=== PATIENT | male | born 1955 | race Caucasian/White ===

== ENCOUNTER 2016-07-26 16:06 | Outpatient (CLI) | payer MEDICAID | END 2016-07-26 16:07 | disposition home or self-care (01) | DX: M54.2 Cervicalgia (principal); Z04.1 Encounter for examination and observation following transport accident; V49.49XA Driver injured in collision with other motor vehicles in traffic accident, initial encounter; Y92.413 State road as the place of occurrence of the external cause ==

== ENCOUNTER 2016-08-01 16:30 | Outpatient (CLI) | payer MEDICAID | END 2016-08-01 16:31 | disposition home or self-care (01) | DX: R00.0 Tachycardia, unspecified (principal) ==

== ENCOUNTER 2017-03-09 20:07 | Outpatient (CLI) | payer SELFPAY | END 2017-03-09 20:08 | disposition short-term general hospital (02) | LOC: EMS 20:07 | PROVIDERS: ATTEND Surgery | DX: R47.81 Slurred speech (principal); R20.0 Anesthesia of skin; R53.1 Weakness; R51 Headache | CPT/HCPCS: A0170; A0425; A0427 ==

== ENCOUNTER 2018-07-05 16:40 | Outpatient (CLI) | payer MEDICARE | END 2018-07-05 16:41 | disposition short-term general hospital (02) | LOC: EMS 16:40 | PROVIDERS: ATTEND Surgery | DX: R47.81 Slurred speech (principal); R42 Dizziness and giddiness; R20.0 Anesthesia of skin; R32 Unspecified urinary incontinence | CPT/HCPCS: A0425; A0427 ==

== ENCOUNTER 2018-08-22 23:10 | Outpatient (CLI) | payer MEDICARE | END 2018-08-22 23:11 | disposition critical access hospital (66) | LOC: EMS 23:10 | PROVIDERS: ATTEND Surgery | DX: R33.9 Retention of urine, unspecified (principal); R10.9 Unspecified abdominal pain; R53.1 Weakness; R63.1 Polydipsia | CPT/HCPCS: A0425; A0427 ==

== ENCOUNTER 2018-08-22 23:39 | Inpatient (IN) | payer MEDICARE ==
[2018-08-22] MEDS ORDERED: SODIUM CHLORIDE 0.9% 1,000 ML IV STA (23:51)
--- NOTE | 2018-08-23 00:03 | ED Physician Documentation ---
PD HPI ABD PAIN - Stated complaint Stated Complaint: ABD PAIN - Chief complaint Chief Complaint: Abd Pain - History obtained from History obtained from: Patient - History of Present Illness Timing - onset: Today, Other (patient says abdominal pain started earlier today, but medics were told it has been going on for at least one week) Timing - details: Gradual onset, Still present Pain level now: 4 Quality: Pain Location: RLQ Improved by: Other (no ameliorating factors) Worsened by: Palpation Associated symptoms: Nausea (mild). No: Fever, Vomiting, Diarrhea, Constipation Similar symptoms before: Has not had sx before Recently seen: Clinic (saw PMD approximately 1 week ago, "routine" visit (per patient)) - Additional information Additional information: BIBA. Patient says his "nosy neighbor" called 911 out of concern for high blood sugar. Medics measured fingertick at 452 in field. Patient says he does check his blood sugars and that it was in the 200s this morning, 300s this afternoon. He also has abdominal pain which he says started this morning. Review of Systems Constitutional: reports: Reviewed and negative Eyes: reports: Reviewed and negative Ears: reports: Reviewed and negative Nose: reports: Reviewed and negative Throat: reports: Reviewed and negative Cardiac: reports: Reviewed and negative Respiratory: reports: Reviewed and negative GI: reports: Abdominal Pain, Nausea. denies: Vomiting, Constipation, Diarrhea : denies: Dysuria, Frequency, Unable to Void Skin: reports: Reviewed and negative Musculoskeletal: reports: Reviewed and negative Neurologic: reports: Reviewed and negative PD PAST MEDICAL HISTORY - Past Medical History Past Medical History: Yes Cardiovascular: Hypertension, Other Endocrine/Autoimmune: Type 2 diabetes - Past Surgical History Past Surgical History: Yes - Present Medications Home Medications: Ambulatory Orders Medication Instructions Recorded Confirmed Aspirin [Aspir 81] 81 mg PO DAILY 11/17/12 08/22/18 Lisinopril 30 mg PO BID 11/17/12 08/22/18 Amlodipine Besylate 10 mg PO DAILY 06/06/14 08/22/18 Insulin Glargine,Hum.rec.anlog 37 unit SQ QPM 06/06/14 08/22/18 [Lantus] Pravastatin Sodium 40 mg PO QPM 06/06/14 08/22/18 Insulin Aspart (Vial) [NovoLOG 11 unit SQ TIDWM 08/18/16 08/22/18 (VIAL FOR ED USE)] - Allergies Allergies/Adverse Reactions: Allergies Allergy/AdvReac Type Severity Reaction Status Date / Time No Known Drug Allergies Allergy Verified 10/21/14 23:02 - Social History Does the pt smoke?: No Smoking Status: Never smoker Does the pt drink ETOH?: No Does the pt have substance abuse?: Yes - Immunizations Immunizations are current?: Yes - POLST Patient has POLST: No PD ED PE NORMAL - Vitals Vital signs reviewed: Yes - General General: Alert and oriented X 3, Well developed/nourished, Other (mostly NAD but at times he moans and says he is having "indigestion" (when asked to be more specific, he describes abdominal pain)) - HEENT HEENT: PERRL, EOMI, Moist mucous membranes - Neck Neck: Supple, no meningeal sign - Cardiac Cardiac: RRR, No murmur - Respiratory Respiratory: No respiratory distress, Clear bilaterally - Abdomen Abdomen: Normal bowel sounds, Soft, Other (RLQ tenderness to palpation without rebound or guarding; suprapubic fullness) - Back Back: No CVA TTP - Derm Derm: Normal color, Warm and dry - Extremities Extremities: No edema - Neuro Eye Opening: Spontaneous Motor: Obeys Commands Verbal: Oriented GCS Score: 15 PD ED PE EXPANDED - Rectal Rectal: Heme Occult Neg - QC+, Normal Tone Results - Vitals Vitals: Vital Signs - 24 hr 08/22/18 08/22/18 08/23/18 23:40 23:49 00:10 Temperature 36 C L Heart Rate 95 104 H 88 Respiratory 16 16 20 Rate Blood Pressure 152/93 H 152/93 H 161/102 H O2 Saturation 96 94 97 08/23/18 02:04 Temperature 36.7 C Heart Rate 82 Respiratory 16 Rate Blood Pressure 157/82 H O2 Saturation 97 Oxygen O2 Source Room air - Labs Labs: Laboratory Tests 08/22/18 08/22/18 08/23/18 23:55 23:55 00:00 WBC 14.9 H RBC 3.56 L Hgb 10.8 L Hct 32.0 L MCV 89.8 MCH 30.2 MCHC 33.7 RDW 13.8 Plt Count 252 MPV 8.7 Neut # (Auto) 13.2 H Lymph # (Auto) 0.3 L [place] # (Auto) 1.3 H Eos # (Auto) 0.0 Baso # (Auto) 0.1 Absolute Nucleated RBC 0.00 Nucleated RBC % 0.0 Sodium 131 L Potassium 4.3 Chloride 97 L Carbon Dioxide 21 Anion Gap 13.0 BUN 94 H* Creatinine 2.7 H Estimated GFR (MDRD) 24 L Glucose 444 H Calcium 9.2 Total Bilirubin 0.7 AST 47 H ALT 31 Alkaline Phosphatase 70 Total Protein 6.9 Albumin 2.8 L Globulin 4.1 Albumin/Globulin Ratio 0.7 L Lipase 19 L Urine Color Urine Clarity Urine pH Ur Specific [place] Urine Protein Urine Glucose (UA) Urine Ketones Urine Occult Blood Urine Nitrite Urine Bilirubin Urine Urobilinogen Ur Leukocyte Esterase Urine RBC Urine WBC Ur Squamous Epith Cells Urine Bacteria Ur Microscopic Review Urine Culture Comments Urine Opiates Screen NEGATIVE Ur Oxycodone Screen NEGATIVE Urine Methadone Screen NEGATIVE Ur Propoxyphene Screen NEGATIVE Ur Barbiturates Screen NEGATIVE Ur Tricyclics Screen NEGATIVE Ur Phencyclidine Scrn NEGATIVE Ur Amphetamine Screen POSITIVE H U Methamphetamines Scrn POSITIVE H U Benzodiazepines Scrn NEGATIVE Urine Cocaine Screen NEGATIVE U Cannabinoids Screen NEGATIVE Serum Ketones NEGATIVE 08/23/18 00:08 WBC RBC Hgb Hct MCV MCH MCHC RDW Plt Count MPV Neut # (Auto) Lymph # (Auto) [place] # (Auto) Eos # (Auto) Baso # (Auto) Absolute Nucleated RBC Nucleated RBC % Sodium Potassium Chloride Carbon Dioxide Anion Gap BUN Creatinine Estimated GFR (MDRD) Glucose Calcium Total Bilirubin AST ALT Alkaline Phosphatase Total Protein Albumin Globulin Albumin/Globulin Ratio Lipase Urine Color YELLOW Urine Clarity HAZY Urine pH 6.0 Ur Specific [place] 1.010 Urine Protein 30 H Urine Glucose (UA) NEGATIVE Urine Ketones NEGATIVE Urine Occult Blood SMALL H Urine Nitrite POSITIVE H Urine Bilirubin NEGATIVE Urine Urobilinogen 0.2 (NORMAL) Ur Leukocyte Esterase LARGE H Urine RBC 0-5 Urine WBC >25 H Ur Squamous Epith Cells FEW Squamous Urine Bacteria Moderate H Ur Microscopic Review INDICATED Urine Culture Comments INDICATED Urine Opiates Screen Ur Oxycodone Screen Urine Methadone Screen Ur Propoxyphene Screen Ur Barbiturates Screen Ur Tricyclics Screen Ur Phencyclidine Scrn Ur Amphetamine Screen U Methamphetamines Scrn U Benzodiazepines Scrn Urine Cocaine Screen U Cannabinoids Screen Serum Ketones - Rads (name of study) CT A/P Radiology: Prelim report reviewed, See rad report PD MEDICAL DECISION MAKING - ED course Complexity details: reviewed old records (I note home health visit records in computer that indicate patient was inpatient at [facility] in June. The records from that inpatient stay were faxed from [facility] and I reviewed them), reviewed results, re-evaluated patient, considered differential, d/w patient ED course: RN placed lara catheter with over 1500 cc return and significant improvement in symptoms. Departure - Departure Disposition: 66 [facility] DC/Xfer Clinical Impression: Acute urinary retention Urinary tract infection Qualifiers: Urinary tract infection type: acute cystitis Hematuria presence: without hematuria Qualified Code(s): N30.00 - Acute cystitis without hematuria Condition: Stable Discharge Date/Time: 08/23/18 04:00
[2018-08-23 00:08] LABS: BASOPHILS # (AUTO) 0.1 10^3/uL (0.0-0.1); BASOPHILS % (AUTO) 0.4 %; HGB - HEMOGLOBIN 10.8 g/dL (14.0-18.0); LYMPHOCYTES # (AUTO) 0.3 10^3/uL (1.5-3.5); MEAN CORPUSCULAR HEMOGLOBIN 30.2 pg (27.0-31.0); MEAN CORPUSCULAR HGB CONC 33.7 g/dL (32.0-36.0); MEAN CORPUSCULAR VOLUME 89.8 fL (80.0-94.0); MEAN PLATELET VOLUME 8.7 fL (7.4-11.4); MONOCYTES # (AUTO) 1.3 10^3/uL (0.0-1.0); MONOCYTES % (AUTO) 8.5 %; NEUTROPHILS # (AUTO) 13.2 10^3/uL (1.5-6.6); NEUTROPHILS % (AUTO) 89.1 %; PLT - PLATELET COUNT 252 10^3/uL (130-450); RED BLOOD COUNT 3.56 10^6/uL (4.70-6.10); RED CELL DISTRIBUTION WIDTH 13.8 % (12.0-15.0); WHITE BLOOD COUNT 14.9 x10^3/uL (4.8-10.8)
[2018-08-23] MEDS ORDERED: ONDANSETRON 4 MG/2 ML VIAL IVP STA ×2 (00:09→01:56)
[2018-08-23] MEDS ORDERED: ONDANSETRON 4 MG/2 ML VIAL ONE (00:15)
[2018-08-23 00:18] LABS: BILIRUBIN,URINE NEGATIVE (NEGATIVE); GLUCOSE, URINE (UA) NEGATIVE (NEGATIVE); KETONES,URINE (UA) NEGATIVE (NEGATIVE); LEUKOCYTE ESTERASE, URINE LARGE (NEGATIVE); NITRITE,URINE POSITIVE (NEGATIVE); OCCULT BLOOD,URINE SMALL (NEGATIVE); PROTEIN,URINE 30 mg/dL (NEGATIVE); UROBILINOGEN,URINE 0.2 (NORMAL) E.U./dL (NORMAL)
[2018-08-23 00:23] LABS: KETONES, SERUM (ACETEST) NEGATIVE (NEGATIVE)
[2018-08-23 00:25] LABS: CLARITY,URINE HAZY (CLEAR)
[2018-08-23 00:30] LABS: RBC,URINE 0-5 /HPF (0-5); SQUAMOUS EPITHELIAL CELL,UR FEW Squamous (<= Few)
[2018-08-23 00:31] LABS: BACTERIA,URINE Moderate /HPF (None Seen)
[2018-08-23 00:44] LABS: ALBUMIN 2.8 g/dL (3.2-5.5); ALBUMIN/GLOBULIN RATIO 0.7 (1.0-2.2); ALKALINE PHOSPHATASE 70 IU/L (42-121); ALT ALANINE AMINOTRANSFERASE 31 IU/L (10-60); AST ASPARTATE AMINOTRANSFERASE 47 IU/L (10-42); BILIRUBIN,TOTAL 0.7 mg/dL (0.2-1.0); CALCIUM 9.2 mg/dL (8.5-10.3); CARBON DIOXIDE - CO2 21 mmol/L (21-32); CHLORIDE 97 mmol/L (101-111); CREATININE 2.7 mg/dL (0.6-1.2); GFR - MDRD 24 (>89); GLUCOSE 444 mg/dL (70-100); LIPASE 19 U/L (22-51); SODIUM 131 mmol/L (135-145); TOTAL PROTEIN 6.9 g/dL (6.7-8.2)
[2018-08-23 00:45] LABS: BUN - BLOOD UREA NITROGEN 94 mg/dL (6-20)
[2018-08-23] MEDS ORDERED: SODIUM CHLORIDE 0.9% 1,000 ML IV STA (00:46)
[2018-08-23] MEDS ORDERED: MORPHINE 2 MG/ML SYRINGE IVP STA (00:46)
[2018-08-23] MEDS ORDERED: cefTRIAXone 1 GM VIAL IVP STA (00:46)
[2018-08-23 01:01] LABS: MUDS CUTOFF CONCENTRATIONS CUTOFF CONC BELOW:
[2018-08-23] MEDS ORDERED: LORazepam 2 MG/ML VIAL IVP STA (01:31)
--- NOTE | 2018-08-23 01:56 | CT Report ---
Reason: abd. pain Procedure Date: 08/23/2018 Accession Number: [id number] / [id number] Procedure: CT - Abdomen/Pelvis WO CPT Code: FULL RESULT: EXAM: CT ABDOMEN AND PELVIS EXAM DATE: 08/23/2018 01:27 AM. CLINICAL HISTORY: Abdominal pain. COMPARISONS: ABDOMEN/PELVIS W/O 11/17/2012 1:38 PM. TECHNIQUE: Routine helical CT imaging was performed through the abdomen and pelvis. IV contrast: None. Enteric contrast: No. Reconstructions: Coronal and sagittal. In accordance with CT protocol optimization, one or more of the following dose reduction techniques were utilized for this exam: automated exposure control, adjustment of mA and/or KV based on patient size, or use of iterative reconstructive technique. FINDINGS: Lung Bases: Mild bibasilar atelectasis. Heart size upper normal. Coronary artery calcifications. Trace pericardial effusion. Esophageal wall thickening is suspected. Liver: Possible fatty infiltration. Gallbladder/Bile Ducts: Unremarkable. Spleen: Normal. Pancreas: Moderate atrophy. A few punctate calcifications are seen. Adrenal Glands: Normal. Kidneys: Moderate to marked bilateral hydronephrosis and hydroureter with perinephric stranding. Nonobstructing 2 mm stone in the right kidney. No ureteral stone is seen bilaterally. Small left renal cyst. Peritoneal Cavity/Bowel: Moderate to large amount of stool in the colon. No bowel obstruction seen. No diverticulitis. No free air or free fluid. Normal sized retroperitoneal lymph nodes. Appendix is retrocecal and appears normal. Pelvic Organs: Markedly distended urinary bladder, extending above the iliac crest. Vasculature: Moderate atherosclerosis. No aortic aneurysm. Bones: Mild degenerative changes in the spine. Degenerative joint disease in the hips, left worse than right. Other: None. IMPRESSION: 1. Markedly distended urinary bladder. 2. Bilateral hydronephrosis and hydroureter with perinephric stranding, likely related to bladder dilatation. 3. Nonobstructing 2 mm stone in the right kidney. 4. Borderline heart size with coronary artery calcifications and trace pericardial effusion. 5. Distal esophageal wall thickening. Correlate for any symptoms of esophagitis. Malignancy also in the differential diagnosis. Consider endoscopic follow-up if clinically indicated. 6. Moderate pancreatic atrophy with a few punctate calcifications, possibly representing chronic pancreatitis. 7. Moderate to large amount of stool in the colon. RADIA
[2018-08-23] MEDS ORDERED: INSULIN REGULAR HUMAN 100 UNIT/1 ML 10 ML MDV IVP STA (02:05)
[2018-08-23 02:27] LABS: AMPHETAMINE SCREEN,URINE POSITIVE (NEGATIVE); BENZODIAZEPINES SCREEN, URINE NEGATIVE (NEGATIVE); COCAINE SCREEN URINE NEGATIVE (NEGATIVE); METHADONE SCREEN, URINE NEGATIVE (NEGATIVE); METHAMPHETAMINES SCREEN, URINE POSITIVE (NEGATIVE); OPIATE SCREEN, URINE NEGATIVE (NEGATIVE); OXYCODONE SCREEN, URINE NEGATIVE (NEGATIVE); PROPOXYPHENE SCREEN, URINE NEGATIVE (NEGATIVE); TRICYCLIC ANTIDEPRESSANT,URINE NEGATIVE (NEGATIVE)
[2018-08-23] MEDS ORDERED: ONDANSETRON ODT 4 MG TABLET TL PRN (03:17)
[2018-08-23] MEDS ORDERED: ACETAMINOPHEN 325 MG TABLET PO PRN (03:17)
[2018-08-23] MEDS ORDERED: SODIUM CHLORIDE 0.9% 1,000 ML IV SCH (04:00)
[2018-08-23] MEDS: levoFLOXacin 500 MG/100 ML 500 MG/100 ML BAG IV SCH (04:26)
[2018-08-23 05:54] LABS: BASOPHILS % (AUTO) 0.2 %; HGB - HEMOGLOBIN 11.4 g/dL (14.0-18.0); LYMPHOCYTES # (AUTO) 0.2 10^3/uL (1.5-3.5); LYMPHOCYTES % (AUTO) 1.5 %; MEAN CORPUSCULAR HGB CONC 32.3 g/dL (32.0-36.0); MEAN PLATELET VOLUME 9.3 fL (7.4-11.4); MONOCYTES # (AUTO) 1.1 10^3/uL (0.0-1.0); MONOCYTES % (AUTO) 7.3 %; NEUTROPHILS # (AUTO) 13.8 10^3/uL (1.5-6.6); PLT - PLATELET COUNT 257 10^3/uL (130-450); RED BLOOD COUNT 3.81 10^6/uL (4.70-6.10); RED CELL DISTRIBUTION WIDTH 14.2 % (12.0-15.0); WHITE BLOOD COUNT 15.2 x10^3/uL (4.8-10.8)
[2018-08-23] MEDS ORDERED: hydrALAZINE INJ 20 MG/ML VIAL IVP PRN (06:00)
[2018-08-23 06:01] LABS: ABSOLUTE RETICS # AUTO 0.047 10^6/uL (0.020-0.110); MEAN RETIC VALUE 99.6; RED BLOOD COUNT 3.78 10^6/uL (4.70-6.10)
[2018-08-23] MEDS: SODIUM CHLORIDE FLUSH 0.9% 10 ML SYRINGE IVP PRN (06:13)
[2018-08-23] MEDS: PANTOPRAZOLE 40 MG VIAL IVP SCH (06:13)
[2018-08-23] MEDS ORDERED: SODIUM CHLORIDE FLUSH 0.9% 10 ML SYRINGE ONE (06:15)
[2018-08-23 06:22] LABS: CALCIUM 9.3 mg/dL (8.5-10.3); CREATININE 2.5 mg/dL (0.6-1.2)
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
[2018-08-23 06:39] LABS: HB2 TOTAL 11.8 g/dL; HEMOGLOBIN A1C 0.85 g/dL; HEMOGLOBIN A1C % 8.7 % (4.6-6.2)
[2018-08-23 06:59] LABS: FERRITIN 583.4 ng/mL (23.9-336.2)
[2018-08-23 07:16] LABS: IRON < 6 ug/dL (45-182); TOTAL IRON BINDING CAPACITY 197 ug/dL (250-450); TRANSFERRIN 141 mg/dL (180-329)
--- NOTE | 2018-08-23 08:31 | MISCELLANEOUS PROVIDER NOTE ---
Miscellaneous Provider Note - - Note: HPI: This is a 63-year-old male who has multiple medical conditions with medical noncompliance for his uncontrolled insulin requiring type 2 diabetes mellitus, polysubstance abuse, hypertension, hyperlipidemia, carotid artery disease with a 60% stenosis to the LICA, multiple strokes status post TPA in the past, bladder outlet obstruction due to BPH, urinary retention, oropharyngeal dysphagia, prior UTIs, chronic kidney disease, gait disturbance secondary to residual stroke affe ct with dysarthria and unsteady gait, poor medical decision making, bilateral hydronephrosis, Previously admitted to [facility] in June due to uncontrolled hyperglycemia with insulin requiring diabetes and was felt that his hyperglycemia was a cause of his recrudescent symptoms from prior strokes. The MRI at that time showed no new strokes and he was improving. He does have a history of prior strokes with MRI dated 07/06/18 showing remote right cerebellar infarct with severe microvascular white matter disease and remote bilateral basal ganglia and thalamic lacunar infarcts. Chronic right PICA atrophy There is progression in ventricular megaly consistent with central volume loss. Multiple remote microhemorrhages distribution suggestive sequela of hypertension. In addition patient has cardiovascular disease with an echocardiogram previously showing an ejection fraction of 50-55% with a grade 1 diastolic dysfunction with minimal LVH. There was some concerns raised about his ability to manage his own insulin and live independently, but he was adamantly against penitentiary facility and was returned home. I spoke to Alvarez merrill who states that he is a difficult person to live with and she has decided to only take care of his animals and not that is as far as as she will go. She said shared similar concerns of the [facility] concerns about living independently especially when patient has complications of acute kidney injury with bladder outlet obstruction and urinary retention for which ultrasound shows bilateral hydronephrosis. Patient's has 2 sons in [place] who are estranged from him, Lesly is the sister who can be reached at [phone]. Subjective: Patient complaining of some GI issues having some reflux with hiccups and spasms that are very uncomfortable. States that he has right upper extremity weakness with no numbness and also states has trouble swallowing. Patient previously was on a thickened liquid consistency diet as of June of this year. Patient has had medical noncompliance since. Patient denies involuntary tremors, fevers, chest pain, shortness of breath, diarrhea, hematemesis or hematochezia, dysuria, currently has a Bryant in place due to urinary retention and bladder obstructive uropathy. Objective: Patient is somewhat tachycardic at 109 bpm afebrile with 154/85. RR 18. 97% O2 saturation room air. General: Patient appears chronically ill-appearing and disheveled. Patient is alert oriented x3. Appears to be in discomfort. No acute respiratory distress. HEENT: Pupils equal round react light and accommodation. Mildly dysarthric. NCAT. No droop to chalino-face. Neck: No JVD + bruits LICA>LECA, none on right, no lymphadenopathy. No thyromegaly. Trachea midline. Next breath CV/lungs: RRR. S1-S2 within normal limits. No murmurs gallops clicks or rubs. Chest is clear to auscultation bilaterally Abdomen: Soft nontender nondistended positive bowel sounds all quads no HSM. No bruits. No hepatosplenomegaly. Extremities/skin: Decreased tool filer strength to the right hand versus left hand. 2+ pulses dorsalis pedis bilaterally. No edema clubbing or cyanosis. Spontaneous movement upper large remedies. No lesions. No maculopapular rashes. rectal: Bryant catheter in place with no hematuria or purulence. No scrotal edema. Rectal deferred. Neuro/Psych: Decreased tool filer strength to the right hand versus the left hand with good dorsi and plantar flexion bilaterally. Good shoulder shrugging bilaterally. Mild dysarthria. No psychomotor retardation. Cranial nerves II to XII grossly intact. Babinski's negative. Labs: Reviewed next Imaging studies: Reviewed Assessment/plan: 1. Sepsis secondary to UTI. -Continue with IV Levaquin along with IV fluids and continue to monitor Clinically -Patient is tachycardic and with encephalopathy which is multifactorial 2. Acute metabolic encephalopathy w/ hx prior neurocognitive deficits -Secondary to uncontrolled hyperglycemia with his insulin requiring type 2 diabetes mellitus. Will address underlying causes. Obtain ammonia level. LFTs are normal. Would hold off on lisinopril, Or other sedating agents. -In reviewing patient's prior MRI patient does have underlying vascular dementia as seen with microvascular changes on MRI in June of this year. -Patient likely would fail an outpatient medical management of his multiple medical conditions as he has proven that he is not able to take care of himself especially when he continues with his drug addiction. 3. Acute kidney injury superimposed on chronic kidney disease (unknown staging however I suspect stage III from prior records). Also secondary to uncontrolled insulin requiring type 2 diabetes mellitus with bladder outlet obstruction status post Bryant catheter. Continue to perfuse kidneys. Avoid nephrotoxic agents. 4. Bladder outlet obstruction secondary to moderate to severe BPH -Would address BPH with Flomax at this time. Current TSH is 3.720. Unclear if BPH versus prostate cancer at this time. However, no mention of constitutional signs or symptoms, Or bone pain 5. UTI Secondary to urinary stasis and underlying bilateral hydronephrosis attributable to severe BPH. -Would address underlying UTI currently on a Bryant catheter will follow up on urine culture for identification and sensitivities. Empiric IV antibiotics for now. 6. Poorly controlled insulin requiring type 2 diabetes mellitus with a hemoglobin A1c of 8.7 -Will place on correctional insulin sliding scale for bolus coverage. Lantus 12 units subcu twice daily. Patient typically takes 30 units subcu p.m. at home. Will provide diabetic education counseling and teaching. There were concerns from [facility] that patient was unable to care for himself in terms of insulin management at home. Patient has displayed poor medical compliance as an outpatient. 7. Bilateral hydronephrosis with distended bladder on CT abdomen pelvis and nonobstructive 2 mm stone to the right kidney -Currently does not have an infected stone however underlying bladder obstructive uropathy present with BPH. Will start Flomax 0.4 mg p.o. daily. In addition consider Cardura however patient has a history of CVA and this would perhaps cause unpredictable drops in BP. Currently with a Bryant catheter to decompress the bladder which appeared very distended on CT abdomen pelvis on admission. 8. Iron deficiency anemia secondary to poor nutrition -Placed on IV Ferrlecit for 3 days. Address underlying nutritional deficiencies. Polysubstance abuse with a history of methamphetamine with a positive urine drug screen -Patient has methamphetamines/amphetamines positive on urine drug screen. He admits to using anywhere from 2-3 times per week. This has been confirmed by friend/prior GF. Patient also has mentioned occasional marijuana use. Patient drinks 1-2 drinks daily. Patient will be given education counseling and lashaun sation of substance abuse. 9. 10. History of oropharyngeal dysphagia with residual dysarthria. -We will obtain a swallowing eval with speech pathology and placed on a pured diet with honey thickened liquid consistency for which this was his previous diet prior to admission. 11. History of carotid artery stenosis with a 60% LICA and history of prior infarcts. -Would control risk factors and treat accordingly. Lipid fasting panel to follow. Patient already on a statin as well as aspirin. 12. Generalized weakness secondary to above -consider PT. -Will order OT for cognitive evaluation. 13. History of multiple strokes with bilateral thalamic and basal ganglia stroke along with cerebellar stroke with associated residual oral pharyngeal dysphagia dysarthria and right hand weakness. -Due to patient's medical noncompliance patient would not be a candidate for Coumadin. Patient in addition will not be a candidate for any other anticoagulant other than aspirin for thromboembolic prophylaxis. We will continue with pravastatin obtain lipid panel fasting. Minimize risk factors such as diabetes hypertension high hyperlipidemia and treat accordingly. Would hold off on lisinopril for now and continue with his home Norvasc along with IV hydralazine as needed with parameters. Patient would need to have criminal justice social worker assessed onMedical compliance as this been safety at home and an issue in the past for which patient is adamant on going home and not being placed at a penitentiary facility. There are concerns on sending patient home with a poor understanding of his medical conditions. Will obtain palliative care consultation. We will continue DVT/GI prophylaxis Advance care planning and education: Patient's medical condition was discussed as well as symptom management and trajectory of illness. Patient will need to have an updated POLST in file. Will consult palliative care. CODE STATUS: Patient wants to be DNR/DNI Total critical care time 30 minutes
[2018-08-23] MEDS: INSULIN ASPART 300 UNIT/3 ML PEN SUBQ SCH ×7 (08:32→21:45)
[2018-08-23] MEDS: amLODIPine 5 MG TABLET PO SCH (08:36)
[2018-08-23] MEDS: SODIUM CHLORIDE 0.9% 1,000 ML IV SCH ×4 (08:36→21:41)
[2018-08-23] MEDS: ENOXAPARIN 40 MG/0.4 ML SYRINGE SUBQ SCH (08:37)
[2018-08-23] MEDS: POLYETHYLENE GLYCOL 3350 17 GM PACKET PO SCH (08:38)
[2018-08-23] MEDS: ONDANSETRON 4 MG/2 ML VIAL IVP PRN ×2 (08:58→18:38)
[2018-08-23] MEDS: SODIUM CHLORIDE FLUSH 0.9% 10 ML SYRINGE IVP SCH ×3 (08:58→23:44)
[2018-08-23 09:12] LABS: CHOLESTEROL 98 mg/dL; HDL CHOLESTEROL 14 mg/dL; LDL CHOLESTEROL,CALCULATED 54 mg/dL; LDL/HDL RATIO 3.9 (<3.6); VLDL CHOLESTEROL 30 mg/dL
[2018-08-23] MEDS: FERRIC GLUCONATE 125 MG in SODIUM CHLORIDE 0.9% 100ML 100 ML IV SCH (09:13)
[2018-08-23] MEDS: TAMSULOSIN 0.4 MG CAPSULE PO SCH (09:17)
[2018-08-23] MEDS: ASPIRIN EC 81 MG TABLET PO SCH (09:18)
[2018-08-23] MEDS: INSULIN GLARGINE 300 UNIT/3 ML PEN SUBQ SCH ×2 (09:20→21:47)
[2018-08-23] MEDS: MEMANTINE 5 MG TABLET PO SCH ×2 (10:12→21:43)
[2018-08-23] MEDS: BACLOFEN 10 MG TABLET PO PRN (18:38)
[2018-08-23] MEDS ORDERED: PRAVASTATIN 40 MG TABLET PO SCH (21:00)
[2018-08-23] MEDS ORDERED: INSULIN GLARGINE 300 UNIT/3 ML PEN SUBQ SCH (21:00)
[2018-08-23] MEDS: PRAVASTATIN 40 MG TABLET PO SCH (21:43)
[2018-08-24] MEDS: SODIUM CHLORIDE 0.9% 1,000 ML IV SCH (04:54)
[2018-08-24 05:17] LABS: CALCIUM 8.8 mg/dL (8.5-10.3); CREATININE 1.8 mg/dL (0.6-1.2)
[2018-08-24 05:18] LABS: BASOPHILS % (AUTO) 0.3 %; HGB - HEMOGLOBIN 10.6 g/dL (14.0-18.0); LYMPHOCYTES # (AUTO) 0.6 10^3/uL (1.5-3.5); LYMPHOCYTES % (AUTO) 3.8 %; MEAN CORPUSCULAR HEMOGLOBIN 29.9 pg (27.0-31.0); MEAN CORPUSCULAR HGB CONC 32.4 g/dL (32.0-36.0); MEAN CORPUSCULAR VOLUME 92.5 fL (80.0-94.0); MEAN PLATELET VOLUME 9.1 fL (7.4-11.4); MONOCYTES # (AUTO) 1.4 10^3/uL (0.0-1.0); MONOCYTES % (AUTO) 9.3 %; NEUTROPHILS # (AUTO) 13.1 10^3/uL (1.5-6.6); NEUTROPHILS % (AUTO) 86.6 %; PLT - PLATELET COUNT 252 10^3/uL (130-450); RED BLOOD COUNT 3.54 10^6/uL (4.70-6.10); RED CELL DISTRIBUTION WIDTH 14.6 % (12.0-15.0); WHITE BLOOD COUNT 15.1 x10^3/uL (4.8-10.8)
[2018-08-24] MEDS: PANTOPRAZOLE 40 MG VIAL IVP SCH (06:30)
[2018-08-24] MEDS: FERRIC GLUCONATE 125 MG in SODIUM CHLORIDE 0.9% 100ML 100 ML IV SCH (09:18)
[2018-08-24] MEDS: INSULIN ASPART 300 UNIT/3 ML PEN SUBQ SCH ×7 (09:22→21:24)
[2018-08-24] MEDS: INSULIN GLARGINE 300 UNIT/3 ML PEN SUBQ SCH ×2 (09:24→21:27)
[2018-08-24] MEDS: TAMSULOSIN 0.4 MG CAPSULE PO SCH (09:30)
[2018-08-24] MEDS: MEMANTINE 5 MG TABLET PO SCH ×2 (09:30→21:24)
[2018-08-24] MEDS: amLODIPine 5 MG TABLET PO SCH (09:30)
[2018-08-24] MEDS: ASPIRIN EC 81 MG TABLET PO SCH (09:30)
[2018-08-24] MEDS: ENOXAPARIN 40 MG/0.4 ML SYRINGE SUBQ SCH (09:31)
[2018-08-24] MEDS: POLYETHYLENE GLYCOL 3350 17 GM PACKET PO SCH (09:31)
[2018-08-24] MEDS: SODIUM CHLORIDE 0.45% 1,000 ML IV SCH ×3 (09:35→19:24)
--- NOTE | 2018-08-24 11:06 | MISCELLANEOUS PROVIDER NOTE ---
Miscellaneous Provider Note - - Note: HPI: This is a 63-year-old male who has multiple medical conditions with medical noncompliance for his uncontrolled insulin requiring type 2 diabetes mellitus, polysubstance abuse, hypertension, hyperlipidemia, carotid artery disease with a 60% stenosis to the LICA, multiple strokes status post TPA in the past, bladder outlet obstruction due to BPH, urinary retention, oropharyngeal dysphagia, prior UTIs, chronic kidney disease, gait disturbance secondary to residual stroke affe ct with dysarthria and unsteady gait, poor medical decision making, bilateral hydronephrosis, Previously admitted to [facility] in June due to uncontrolled hyperglycemia with insulin requiring diabetes and was felt that his hyperglycemia was a cause of his recrudescent symptoms from prior strokes. The MRI at that time showed no new strokes and he was improving. He does have a history of prior strokes with MRI dated 07/06/18 showing remote right cerebellar infarct with severe microvascular white matter disease and remote bilateral basal ganglia and thalamic lacunar infarcts. Chronic right PICA atrophy There is progression in ventricular megaly consistent with central volume loss. Multiple remote microhemorrhages distribution suggestive sequela of hypertension. In addition patient has cardiovascular disease with an echocardiogram previously showing an ejection fraction of 50-55% with a grade 1 diastolic dysfunction with minimal LVH. There was some concerns raised about his ability to manage his own insulin and live independently, but he was adamantly against jail facility and was returned home. I spoke to Alvarez merrill who states that he is a difficult person to live with and she has decided to only take care of his animals and not that is as far as as she will go. She said shared similar concerns of the [facility] concerns about living independently especially when patient has complications of acute kidney injury with bladder outlet obstruction and urinary retention for which ultrasound shows bilateral hydronephrosis. Patient's has 2 sons in [place] who are estranged from him, Lesly is the sister who can be reached at [phone]. Subjective: Patient seen at bedside feeling much better with improved hiccups, no chest pain shortness of breath dysuria flank pain. Patient does not convey much symptoms today. Objective: Hemodynamically stable. Heart rate 90-111 bpm. Blood pressure 131/73. RR 18. 94% O2 saturation on room air. General: Patient appears chronically ill-appearing and disheveled. Patient is alert oriented x3. No acute respiratory distress. HEENT: Pupils equal round react light and accommodation. Mildly dysarthric. NCAT. No droop to chalino-face. Neck: No JVD + bruits LICA>LECA, none on right, no lymphadenopathy. No thyromegaly. Trachea midline. Next breath CV/lungs: RRR. S1-S2 within normal limits. No murmurs gallops clicks or rubs. Chest is clear to auscultation bilaterally Abdomen: Soft nontender nondistended positive bowel sounds all quads no HSM. No bruits. No hepatosplenomegaly. Extremities/skin: Decreased sock lining examiner strength to the right hand versus left hand. 2+ pulses dorsalis pedis bilaterally. No edema clubbing or cyanosis. Spontaneous movement upper large remedies. No lesions. No maculopapular rashes. rectal: Bryant catheter in place with no hematuria or purulence. No scrotal edema. Rectal deferred. Neuro/Psych: Obvious neurocognitive deficits. Decreased sock lining examiner strength to the right hand versus the left hand with good dorsi and plantar flexion bilaterally. Good shoulder shrugging bilaterally. Mild dysarthria. No psychomotor retardation. Cranial nerves II to XII grossly intact. Babinski's negative. Labs: Reviewed next Imaging studies: Reviewed Assessment/plan: 1. Sepsis secondary to UTI. Resolving -Continue with IV Levaquin along with IV fluids and continue to monitor Clinically -Patient is tachycardic and Dehydrated. Continue with early goal-directed therapy. -Blood cultures x2 not drawn in the ED. 2 sets drawn today. 2. Uwrfr-[id number]-Gmdpymjy dementia -Previously undiagnosed but In reviewing patient's prior MRI patient does have underlying vascular dementia as seen with microvascular changes on MRI in June of this year. Patient started Namenda 5 mg p.o. twice daily. May add Aricept to buttress and improve cognitive deficits which are clearly seen by cognitive assessments done by myself and occupational therapy. Patient currently scores a 10 out of 30 in the [facility] Mini-Mental examination. If patient develops sundowning will address with either an SSRI plus or minus a mood stabilizer like valproic acid and try to use judicious amounts of anxiolytic. 3. Acute metabolic encephalopathy; Appears back to baseline -Secondary to uncontrolled hyperglycemia with his insulin requiring type 2 diabetes mellitus. Will address underlying causes. Ammonia level unremarkable. LFTs are normal. Would hold off on lisinopril, Or other sedating agents. 4. Acute kidney injury superimposed on chronic kidney disease (unknown staging however I suspect stage III from prior records). Also secondary to uncontrolled insulin requiring type 2 diabetes mellitus with bladder outlet obstruction status post Bryant catheter. Continue to perfuse kidneys. Avoid nephrotoxic agents. 5. Bladder outlet obstruction secondary to moderate to severe BPH -Would address BPH with Flomax at this time. Current PSA is 3.720. Unclear if BPH versus prostate cancer at this time. However, no mention of constitutional signs or symptoms, Or bone pain 6. UTI Secondary to urinary stasis and underlying bilateral hydronephrosis attributable to severe BPH. -Urine culture growing gram-negative rods likely E. coli. -Would address underlying UTI currently on a Bryant catheter will follow up on urine culture for identification and sensitivities. Empiric IV antibiotics for now. 7. Poorly controlled insulin requiring type 2 diabetes mellitus with a hemoglobin A1c of 8.7 -Up titration of insulin bolus coverage correctional to high dose. Up titration of Lantus 15 units subcu twice daily. Patient typically takes 30 units subcu p.m. at home. Will provide diabetic education counseling and teaching. Patient placed on Actos 50 mg crushed p.o. twice daily with meals. There were concerns from [facility] that patient was unable to care for himself in terms of insulin management at home. Patient has displayed poor medical compliance as an outpatient. 8. Bilateral hydronephrosis with distended bladder on CT abdomen pelvis and nonobstructive 2 mm stone to the right kidney -Currently does not have an infected stone however underlying bladder obstructive uropathy present with BPH. Will start Flomax 0.4 mg p.o. daily. In addition consider Cardura however patient has a history of CVA and this would perhaps cause unpredictable drops in BP. Currently with a Bryant catheter to decompress the bladder which appeared very distended on CT abdomen pelvis on admission. 9. Iron deficiency anemia secondary to poor nutrition -Placed on IV Ferrlecit for 3 days. Address underlying nutritional deficiencies. Polysubstance abuse with a history of methamphetamine with a positive urine drug screen -Patient has methamphetamines/amphetamines positive on urine drug screen. He admits to using anywhere from 2-3 times per week. This has been confirmed by friend/prior GF. Patient also has mentioned occasional marijuana use. Patient drinks 1-2 drinks daily. Patient will be given education counseling and cessation of substance abuse. 10. History of oropharyngeal dysphagia with residual dysarthria. -We will obtain a swallowing eval with speech pathology and placed on a pured diet with honey thickened liquid consistency for which this was his previous diet prior to admission. 11. History of carotid artery stenosis with a 60% LICA and history of prior infarcts. -Would control risk factors and treat accordingly. Lipid fasting panel to follow. Patient already on a statin as well as aspirin. 12. Generalized weakness secondary to above Patient has gait disturbance and displays poor balance. There has been mentioned by his family members including his sister that he has fallen at home. Would be an unsafe discharge at this time as underlying medical conditions need to be properly managed. Physical therapy has been ordered. Occupational therapy has assessed cognitive status. 13. History of multiple strokes with bilateral thalamic and basal ganglia stroke along with cerebellar stroke with associated residual oral pharyngeal dysphagia dysarthria and right hand weakness. -Due to patient's medical noncompliance patient would not be a candidate for Coumadin. Patient in addition will not be a candidate for any other anticoagulant other than aspirin for thromboembolic prophylaxis. We will continue with pravastatin obtain lipid panel fasting. Minimize risk factors such as diabetes hypertension high hyperlipidemia and treat accordingly. Would hold off on lisinopril for now and continue with his home Norvasc along with IV hydralazine as needed with parameters. Social #worker has met with family and likely will not be placed at jail facility due to his ongoing drug addiction. However, due to his neurocognitive deficits, There are concerns on sending patient home with a poor understanding of his medical conditions. Will obtain palliative care consultation. We will continue DVT/GI prophylaxis Advance care planning and education: Patient's medical condition was discussed as well as symptom management and trajectory of illness. Palliative consultation has been ordered and will assess patient. CODE STATUS: Patient wants to be DNR/DNI. Post has been signed by patient. Total critical care time 30 minutes
[2018-08-24] MEDS: PRAVASTATIN 40 MG TABLET PO SCH (21:24)
[2018-08-24] MEDS: SODIUM CHLORIDE FLUSH 0.9% 10 ML SYRINGE IVP SCH ×2 (21:42→21:43)
[2018-08-25] MEDS: oxyCODONE 5 MG TABLET PO PRN (00:11)
[2018-08-25] MEDS: BACLOFEN 10 MG TABLET PO PRN (00:22)
[2018-08-25] MEDS: SODIUM CHLORIDE FLUSH 0.9% 10 ML SYRINGE IVP SCH ×3 (01:00→18:01)
[2018-08-25] MEDS: SODIUM CHLORIDE 0.45% 1,000 ML IV SCH ×3 (01:19→21:58)
[2018-08-25] MEDS: levoFLOXacin 500 MG/100 ML 500 MG/100 ML BAG IV SCH (03:28)
[2018-08-25 05:42] LABS: BASOPHILS # (AUTO) 0.1 10^3/uL (0.0-0.1); BASOPHILS % (AUTO) 0.4 %; EOSINOPHILS % (AUTO) 0.2 %; HGB - HEMOGLOBIN 10.8 g/dL (14.0-18.0); LYMPHOCYTES # (AUTO) 0.9 10^3/uL (1.5-3.5); LYMPHOCYTES % (AUTO) 6.1 %; MEAN CORPUSCULAR HEMOGLOBIN 30.2 pg (27.0-31.0); MEAN CORPUSCULAR HGB CONC 33.5 g/dL (32.0-36.0); MEAN CORPUSCULAR VOLUME 90.2 fL (80.0-94.0); MEAN PLATELET VOLUME 8.6 fL (7.4-11.4); MONOCYTES # (AUTO) 1.1 10^3/uL (0.0-1.0); MONOCYTES % (AUTO) 7.5 %; NEUTROPHILS # (AUTO) 12.3 10^3/uL (1.5-6.6); NEUTROPHILS % (AUTO) 85.8 %; PLT - PLATELET COUNT 277 10^3/uL (130-450); RED BLOOD COUNT 3.57 10^6/uL (4.70-6.10); RED CELL DISTRIBUTION WIDTH 14.5 % (12.0-15.0); WHITE BLOOD COUNT 14.3 x10^3/uL (4.8-10.8)
[2018-08-25 05:53] LABS: CALCIUM 8.8 mg/dL (8.5-10.3); CREATININE 1.4 mg/dL (0.6-1.2)
[2018-08-25] MEDS: SODIUM CHLORIDE FLUSH 0.9% 10 ML SYRINGE IVP PRN (06:02)
[2018-08-25] MEDS: PANTOPRAZOLE 40 MG VIAL IVP SCH (06:02)
[2018-08-25] MEDS ORDERED: POTASSIUM CHLORIDE 20 MEQ TABLET PO SCH (09:00)
[2018-08-25] MEDS: ASPIRIN EC 81 MG TABLET PO SCH (09:17)
[2018-08-25] MEDS: MEMANTINE 5 MG TABLET PO SCH ×2 (09:17→21:59)
[2018-08-25] MEDS: amLODIPine 5 MG TABLET PO SCH (09:17)
[2018-08-25] MEDS: TAMSULOSIN 0.4 MG CAPSULE PO SCH (09:17)
[2018-08-25] MEDS: INSULIN ASPART 300 UNIT/3 ML PEN SUBQ SCH ×7 (09:18→22:03)
[2018-08-25] MEDS: POLYETHYLENE GLYCOL 3350 17 GM PACKET PO SCH (09:19)
[2018-08-25] MEDS: INSULIN GLARGINE 300 UNIT/3 ML PEN SUBQ SCH ×2 (09:19→22:02)
[2018-08-25] MEDS: levoFLOXacin 250 MG TABLET PO SCH (21:59)
[2018-08-25] MEDS: PRAVASTATIN 40 MG TABLET PO SCH (21:59)
[2018-08-26] MEDS: SODIUM CHLORIDE FLUSH 0.9% 10 ML SYRINGE IVP SCH ×3 (00:11→16:51)
[2018-08-26] MEDS: oxyCODONE 5 MG TABLET PO PRN ×2 (00:22→04:38)
[2018-08-26] MEDS: BACLOFEN 10 MG TABLET PO PRN (00:22)
[2018-08-26 05:26] LABS: ALBUMIN 2.5 g/dL (3.2-5.5); CALCIUM 8.9 mg/dL (8.5-10.3); CREATININE 1.5 mg/dL (0.6-1.2); MAGNESIUM 1.6 mg/dL (1.7-2.8); PHOSPHORUS 3.3 mg/dL (2.5-4.6)
[2018-08-26] MEDS ORDERED: MAGNESIUM SULFATE 2 GRAM 2 GM/50 ML BAG IV ONE (06:53)
[2018-08-26] MEDS ORDERED: hydrALAZINE INJ 20 MG/ML VIAL IVP PRN (07:59)
[2018-08-26] MEDS ORDERED: POTASSIUM CHLORIDE 20 MEQ TABLET PO ONE (08:00)
[2018-08-26] MEDS: INSULIN ASPART 300 UNIT/3 ML PEN SUBQ SCH ×7 (09:18→21:56)
[2018-08-26] MEDS: INSULIN GLARGINE 300 UNIT/3 ML PEN SUBQ SCH ×2 (09:19→21:58)
[2018-08-26] MEDS: NEUTRA-PHOS 250 MG TABLET PO SCH ×3 (09:20→16:49)
[2018-08-26] MEDS: MAGNESIUM OXIDE 400 MG TABLET PO SCH (09:21)
[2018-08-26] MEDS: ASPIRIN EC 81 MG TABLET PO SCH (09:21)
[2018-08-26] MEDS: MEMANTINE 5 MG TABLET PO SCH ×2 (09:21→21:50)
[2018-08-26] MEDS: TAMSULOSIN 0.4 MG CAPSULE PO SCH (09:21)
[2018-08-26] MEDS: POLYETHYLENE GLYCOL 3350 17 GM PACKET PO SCH (09:22)
[2018-08-26 09:38] LABS: HGB - HEMOGLOBIN 11.4 g/dL (14.0-18.0); MEAN CORPUSCULAR HEMOGLOBIN 29.7 pg (27.0-31.0); MEAN CORPUSCULAR HGB CONC 32.8 g/dL (32.0-36.0); MEAN CORPUSCULAR VOLUME 90.5 fL (80.0-94.0); MEAN PLATELET VOLUME 8.8 fL (7.4-11.4); NEUTROPHILS # (AUTO) 10.4 10^3/uL (1.5-6.6); NEUTROPHILS % (AUTO) 84.6 %; RED BLOOD COUNT 3.83 10^6/uL (4.70-6.10); RED CELL DISTRIBUTION WIDTH 14.3 % (12.0-15.0); WHITE BLOOD COUNT 12.3 x10^3/uL (4.8-10.8)
--- NOTE | 2018-08-26 10:35 | MISCELLANEOUS PROVIDER NOTE ---
Miscellaneous Provider Note - - Note: Progress note: 08/25/18 Subjective: Patient seen at bedside with improvement to weakness. Still having some issues with memory. Discussion on his [address] [address] with information given. No mentions of fevers chills nausea vomiting shortness of breath or chest pain. Objective: Hemodynamically stable. Currently afebrile but with generalized weakness General: Patient appears chronically ill-appearing and disheveled. Patient is alert oriented x3. No acute respiratory distress. HEENT: Pupils equal round react light and accommodation. Mildly dysarthric. NCAT. No droop to chalino-face. Neck: No JVD + bruits LICA>LECA, none on right, no lymphadenopathy. No t hyromegaly. Trachea midline. CV/lungs: RRR. S1-S2 within normal limits. No murmurs gallops clicks or rubs. Chest is clear to auscultation bilaterally Abdomen: Soft nontender nondistended positive bowel sounds all quads no HSM. No bruits. No hepatosplenomegaly. Extremities/skin: Decreased interior mechanic strength to the right hand versus left hand. 2+ pulses dorsalis pedis bilaterally. No edema clubbing or cyanosis. Spontaneous movement upper large remedies. No lesions. No maculopapular rashes. rectal: Bryant catheter in place with no hematuria or purulence. No scrotal edema. Rectal deferred. Neuro/Psych: Obvious neurocognitive deficits. Decreased interior mechanic strength to the right hand versus the left hand with good dorsi and plantar flexion bilaterally. Good shoulder shrugging bilaterally. Mild dysarthria. No psychomotor retardation. Cranial nerves II to XII grossly intact. Babinski's negative. Labs: Reviewed next Imaging studies: Reviewed Assessment/plan: 1. Sepsis secondary to UTI. Resolving -Continue with Levaquin, IV was out and oral will be continued. -Blood cultures x2 not drawn in the ED. Blood cultures to follow 2. Wgrcz-wcsujxa-Zjsrqrne dementia -Previously undiagnosed but In reviewing patient's prior MRI patient does have underlying vascular dementia as seen with microvascular changes on MRI in June of this year. Patient started Namenda 5 mg p.o. twice daily. May add Aricept to buttress and improve cognitive deficits which are clearly seen by cognitive assessments done by myself and occupational therapy. Patient current ly scores a 10 out of 30 in the [place] Mini-Mental examination. If patient develops sundowning will address with either an SSRI plus or minus a mood stabilizer like valproic acid and try to use judicious amounts of anxiolytic. 3. Acute metabolic encephalopathy; Appears back to baseline -Secondary to uncontrolled hyperglycemia with his insulin requiring type 2 diabetes mellitus. Will address underlying causes. Ammonia level unremarkable. LFTs are normal. Would hold off on lisinopril, Or other sedating agents. 4. Acute kidney injury superimposed on chronic kidney disease (unknown staging however I suspect stage III from prior records). Also secondary to uncontrolled insulin requiring type 2 diabetes mellitus with bladder outlet obstruction status post Bryant catheter. Continue to perfuse kidneys. Avoid nephrotoxic agents. 5. Bladder outlet obstruction secondary to moderate to severe BPH -Would address BPH with Flomax at this time. Current PSA is 3.720. Unclear if BPH versus prostate cancer at this time. However, no mention of constitutional signs or symptoms, Or bone pain 6. UTI Secondary to urinary stasis and underlying bilateral hydronephrosis attributable to severe BPH. -Urine culture growing gram-negative rods likely E. coli. -Would address underlying UTI currently on a Bryant catheter will follow up on urine culture for identification and sensitivities. Empiric IV antibiotics for now. 7. Poorly controlled insulin requiring type 2 diabetes mellitus with a hemoglobin A1c of 8.7 -Up titration of insulin bolus coverage correctional to high dose. Up titration of Lantus 15 units subcu twice daily. Patient typically takes 30 units subcu p.m. at home. Will provide diabetic education counseling and teaching. Patient placed on Actos 50 mg crushed p.o. twice daily with meals. There were concerns from [place] that patient was unable to care for himself in terms of insulin management at home. Patient has displayed poor medical compliance as an outpatient. 8. Bilateral hydronephrosis with distended bladder on CT abdomen pelvis and nonobstructive 2 mm stone to the right kidney -Currently does not have an infected stone however underlying bladder obst ructive uropathy present with BPH. Will start Flomax 0.4 mg p.o. daily. In addition consider Cardura however patient has a history of CVA and this would perhaps cause unpredictable drops in BP. Currently with a Bryant catheter to decompress the bladder which appeared very distended on CT abdomen pelvis on admission. 9. Iron deficiency anemia secondary to poor nutrition -Placed on IV Ferrlecit for 3 days. Address underlying nutritional deficiencies. Polysubstance abuse with a history of methamphetamine with a positive urine drug screen -Patient has methamphetamines/amphetamines positive on urine drug screen. He admits to using anywhere from 2-3 times per week. This has been confirmed by friend/prior GF. Patient also has mentioned occasional marijuana use. Patient drinks 1-2 drinks daily. Patient will be given education counseling and cessation of substance abuse. 10. History of oropharyngeal dysphagia with residual dysarthria. -We will obtain a swallowing eval with speech pathology and placed on a pured diet with honey thickened liquid consistency for which this was his previous diet prior to admission. 11. History of carotid artery stenosis with a 60% LICA and history of prior infarcts. -Would control risk factors and treat accordingly. Lipid fasting panel to follow. Patient already on a statin as well as aspirin. 12. Generalized weakness secondary to above Patient has gait disturbance and displays poor balance. There has been mentioned by his family members including his sister that he has fallen at home. Would be an unsafe discharge at this time as underlying medical conditions need to be properly managed. Physical therapy has been ordered. Occupational therapy has assessed cognitive status. 13. History of multiple strokes with bilateral thalamic and basal ganglia stroke along with cerebellar stroke with associated residual oral pharyngeal dysphagia dysarthria and right hand weakness. -Due to patient's medical noncompliance patient would not be a candidate for Coumadin. Patient in addition will not be a candidate for any other anticoagulant other than aspirin for thromboembolic prophylaxis. We will continue with pravastatin. Minimize risk factors such as diabetes hypertension high hyperlipidemia and treat accordingly. Would hold off on lisinopril for now and continue with his home Norvasc along with IV hydralazine as needed with parameters. Social #worker has met with family and likely will not be placed at care home facility due to his ongoing drug addiction. However, due to his neurocognitive deficits, There are concerns on sending patient home with a poor understanding of his medical conditions. Will obtain palliative care consultation. We will continue DVT/GI prophylaxis Advance care planning and education: Patient's medical condition was discussed as well as symptom management and trajectory of illness. Palliative consultation has been ordered and will assess patient. CODE STATUS: Patient wants to be DNR/DNI. Post has been signed by patient. Total critical care time 30 minutes
--- NOTE | 2018-08-26 10:39 | MISCELLANEOUS PROVIDER NOTE ---
Miscellaneous Provider Note - - Note: Subjective: Patient seen at bedsideWith improvement to overall medical conditions. Patient would like to go home. Discussion with sister completed with yesterday's discussion on patient's power of assistant prosecuting attorney and [employer] Hospitalist for tomorrow. Objective: Hemodynamically stable. Currently afebrile but with generalized weakness General: Patient appears chronically ill-appearing and disheveled. Patient is alert oriented x3. No acute respiratory distress. HEENT: Pupils equal round react light and accommodation. Mildly dysarthric. NCAT. No droop to chalino-face. Neck: No JVD + bruits LICA>LECA, none on right, no lymphadenopathy. No thyromegaly. Trachea midline. CV/lungs: RRR. S1-S2 within normal limits. No murmurs gallops clicks or rubs. Chest is clear to auscultation bilaterally Abdomen: Soft nontender nondistended positive bowel sounds all quads no HSM. No bruits. No hepatosplenomegaly. Extremities/skin: Bilateral upper extremity pastoral worker strength equal. 2+ pulses dorsalis pedis bilaterally. No edema clubbing or cyanosis. Spontaneous movement upper large remedies. No lesions. No maculopapular rashes. rectal: Bryant catheter in place with no hematuria or purulence. No scrotal edema. Rectal deferred. Neuro/Psych: Obvious neurocognitive deficits. On standing patient tends to lean to one side with gait disturbance. Good shoulder shrugging bilaterally. Mild dysarthria. No psychomotor retardation. Cranial nerves II to XII grossly intact. Babinski's negative. Labs: Reviewed next Imaging studies: Reviewed Assessment/plan: 1. Sepsis secondary to UTI. Resolving -Continue with Levaquin, IV was out and oral will be continued. -Blood cultures x2 not drawn in the ED. Blood cultures to follow 2. Cmjjl-gwvlomp-Jipvkjfm dementia -Previously undiagnosed but In reviewing patient's prior MRI patient does have underlying vascular dementia as seen with microvascular changes on MRI in June of this year. Patient started Namenda 5 mg p.o. twice daily. May add Aricept to buttress and improve cognitive deficits which are clearly seen by cognitive assessments done by myself and occupational therapy. Patient currently scores a 10 out of 30 in the [place] Mini-Mental examination. If patient develops sundowning will address with either an SSRI plus or minus a mood stabilizer like valproic acid and try to use judicious amounts of anxiolytic. 3. Acute metabolic encephalopathy;Resolved -Secondary to uncontrolled hyperglycemia with his insulin requiring type 2 diabetes mellitus. Will address underlying causes. Ammonia level unremarkable. LFTs are normal. Would hold off on lisinopril, Or other sedating agents. 4. Acute kidney injury superimposed on chronic kidney disease (unknown staging however I suspect stage III from prior records) and LÓPEZ. Creatinine is back to baseline. Also secondary to uncontrolled insulin requiring type 2 diabetes mellitus with bladder outlet obstruction status post Bryant catheter. Continue to perfuse kidneys. Avoid nephrotoxic agents. 5. Bladder outlet obstruction secondary to moderate to severe BPH -Continue with Flomax. Current PSA is 3.720. Unclear if BPH versus prostate cancer at this time. However, no mention of constitutional signs or symptoms, Or bone pain -Patient to be sent with a Bryant catheter as he has underlying urine retention to follow-up with urology as an outpatient 6. Pansensitive UTI ([place]) Secondary to urinary stasis and underlying bilateral hydronephrosis attributable to severe BPH. -Urine cultureShows sensitivities to quinolones. We will continue with Levaquin orally. To receive a total antibiotic of 10 days. 7. Poorly controlled insulin requiring type 2 diabetes mellitus with a hemoglobin A1c of 8.7 -Up titration of insulin bolus coverage correctional to high dose. Continue Lantus 15 units subcu twice daily. Patient typically takes 30 units subcu p.m. at home. Will provide diabetic education counseling and teaching. Patient placed on Actos 15 mg crushed p.o. twice daily with meals. There were concerns from [place] that patient was unable to care for himself in terms of insulin management at home. Patient has displayed poor medical compliance as an outpatient. 8. Bilateral hydronephrosis with distended bladder on CT abdomen pelvis and nonobstructive 2 mm stone to the right kidney -Currently does not have an infected stone however underlying bladder obstructive uropathy present with BPH. Will start Flomax 0.4 mg p.o. daily. In addition consider Cardura however patient has a history of CVA and this would perhaps cause unpredictable drops in BP. Currently with a Bryant catheter to decompress the bladder which appeared very distended on CT abdomen pelvis on admission. -Patient to be sent with a Bryant catheter as he has underlying urine retention to follow-up with urology as an outpatient 9. Iron deficiency anemia secondary to poor nutrition Status post 3 days of IV iron. -Address underlying nutritional deficiencies. Polysubstance abuse with a history of methamphetamine with a positive urine drug screen -Patient has methamphetamines/amphetamines positive on urine drug screen. 10. History of oropharyngeal dysphagia with residual dysarthria. -We will obtain a swallowing eval with speech pathology and placed on a pured diet with honey thickened liquid consistency for which this was his previous diet prior to admission. 11. History of carotid artery stenosis with a 60% LICA and history of prior infarcts. -Would control risk factors and treat accordingly. Lipid panel shows no uncontrolled dyslipidemia. Patient already on a statin as well as aspirin. 12. Generalized weakness secondary to above Continue to receive physical therapy which has improved his deconditioned status. 13. History of multiple strokes with bilateral thalamic and basal ganglia stroke along with cerebellar stroke with associated residual oral pharyngeal dysphagia dysarthria and right hand weakness. -Due to patient's medical noncompliance patient would not be a candidate for Coumadin. Patient in addition will not be a candidate for any other anticoagulant other than aspirin for thromboembolic prophylaxis. We will continue with pravastatin. Minimize risk factors such as diabetes hypertension high hyperlipidemia and treat accordingly. Would hold off on lisinopril for now and continue with his home Norvasc along with IV hydralazine as needed with p arameters. Social #worker has met with family and likely will not be placed at [facility] facility due to his ongoing drug addiction. However, due to his neurocognitive deficits, There are concerns on sending patient home with a poor understanding of his medical conditions. Will obtain palliative care consultation. We will continue DVT/GI prophylaxis Advance care planning and education: Patient's medical condition was discussed as well as symptom management and trajectory of illness. Palliative care service has seen patient and currently not interested in discussions. CODE STATUS: Patient wants to be DNR/DNI. Post has been signed by patient.
[2018-08-26] MEDS ORDERED: DOXAZOSIN 1 MG TABLET PO SCH (21:00)
[2018-08-26] MEDS: PRAVASTATIN 40 MG TABLET PO SCH (21:50)
[2018-08-26] MEDS: levoFLOXacin 250 MG TABLET PO SCH (21:50)
[2018-08-26] MEDS ORDERED: DOXAZOSIN 4 MG TABLET ONE (22:06)
[2018-08-27] MEDS: SODIUM CHLORIDE FLUSH 0.9% 10 ML SYRINGE IVP SCH ×2 (00:12→08:48)
[2018-08-27 05:20] LABS: HGB - HEMOGLOBIN 10.9 g/dL (14.0-18.0); MEAN CORPUSCULAR HEMOGLOBIN 29.4 pg (27.0-31.0); MEAN CORPUSCULAR HGB CONC 32.5 g/dL (32.0-36.0); MEAN CORPUSCULAR VOLUME 90.5 fL (80.0-94.0); MEAN PLATELET VOLUME 8.7 fL (7.4-11.4); NEUTROPHILS # (AUTO) 10.6 10^3/uL (1.5-6.6); NEUTROPHILS % (AUTO) 83.1 %; RED BLOOD COUNT 3.69 10^6/uL (4.70-6.10); RED CELL DISTRIBUTION WIDTH 14.3 % (12.0-15.0); WHITE BLOOD COUNT 12.7 x10^3/uL (4.8-10.8)
[2018-08-27 05:34] LABS: ALBUMIN 2.3 g/dL (3.2-5.5); CALCIUM 8.7 mg/dL (8.5-10.3); CREATININE 1.4 mg/dL (0.6-1.2); MAGNESIUM 1.5 mg/dL (1.7-2.8); PHOSPHORUS 3.5 mg/dL (2.5-4.6)
--- NOTE | 2018-08-27 08:10 | Discharge Plan ---
Discharge Plan Disposition: 06 Home Health Service Condition: Good Prescriptions: Amlodipine Besylate 10 mg PO DAILY #30 tablet Doxazosin [Cardura] 1 mg PO QPM #30 tablet Insulin Aspart (Vial) [NovoLOG (VIAL FOR ED USE)] 10 - 20 unit SQ TIDWM #1 vial Insulin Glargine [Lantus Solostar] 20 unit SUBQ BID #1 pen levoFLOXacin [Levaquin] 500 mg PO QPM #12 tablet Lisinopril [Zestril] 20 mg PO DAILY #30 tablet Memantine [Namenda] 5 mg PO BID #60 tablet Multivit,Th Iron,Other Min [Thera-M] 1 each PO DAILY #30 tablet Pravastatin Sodium [Pravachol] 80 mg PO QPM #30 tablet Tamsulosin [Flomax] 0.4 mg PO DAILY #30 capsule Diet: Soft (Patient to resume a Dysphasia pured honey thickened diet) Activity Restrictions: Activity as Tolerated Shower Restrictions: No Driving Restrictions: Yes (Until patient has been cleared by physical therapy) Assistance Devices: Walker Instruction Topics: Diabetes It Investment/Portfolio Manager Complications, UTI, Diabetes Kidney Disease, Abuse Meth Abuse and Addiction, ED Catheter Care Bryant Additional Instructions or Follow Up instructions: Patient has been instructed on medical compliance to keep appointments take all p.o. medications as well as glycemic control with insulin and Lantus at home. Patient will hopefully obtain a power of ip technology transactions attorney who is Lesly his sister that will sign notary today prior to discharge. Patient to have home health services provide such as PT/OT. To resume a dysphagia pured with honey thickened consistency due to prior oropharyngeal dysphagia as it relates to prior CVA. Patient instructed on methamphetamine abuse cessation. Patient to follow-up with PCP within 1-2 weeks. Prescriptions will be provided to patient and in anticipation of assumed POA, sister Lesly who will obtain or assist prescriptions for patient as he suffers from vascular type dementia and will not remember to take all medications accordingly. Concern for discharge to safe environment has been ascertained by high school social studies teacher as well as physical therapist who recommend retirement facility due to this drug addiction unable to send to retirement at this time and will discharge home with home health services. Patient will be discharged an appointment should be made to [facility] urology clinic in [place] to call for an appointment at [phone] to f/u in 1-2 weeks. Bryant catheter care and instructions will be provided. Pt comfortable with plan and will return if he worsens. Follow-Up Care: Home Health - RN, Home Health - PT, Home Health - OT, Home Health - ST, [facility] - Diabetes Ed No Smoking: If you smoke, Please STOP! Call for help. Follow-up with: Calderon Hwang MD [Credentialed Staff Provider] - 1 Week (Follow-up with PCP in 1 or 2 weeks) Дмитрий Barragan MD [Provider Admit Priv/Credential] - (Follow-up with Dr. Barragan in 2-3 weeks for possible upper endoscopy)
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
[2018-08-27] MEDS: POLYETHYLENE GLYCOL 3350 17 GM PACKET PO SCH (08:48)
[2018-08-27] MEDS: TAMSULOSIN 0.4 MG CAPSULE PO SCH (08:48)
[2018-08-27] MEDS: NEUTRA-PHOS 250 MG TABLET PO SCH ×2 (08:48→11:55)
[2018-08-27] MEDS: MEMANTINE 5 MG TABLET PO SCH (08:48)
[2018-08-27] MEDS: MAGNESIUM OXIDE 400 MG TABLET PO SCH (08:48)
[2018-08-27] MEDS: ASPIRIN EC 81 MG TABLET PO SCH (08:48)
[2018-08-27] MEDS: INSULIN GLARGINE 300 UNIT/3 ML PEN SUBQ SCH (08:50)
[2018-08-27] MEDS: INSULIN ASPART 300 UNIT/3 ML PEN SUBQ SCH ×4 (08:51→12:03)
[2018-08-27 16:16] VITALS: BP 123/81
== END 2018-08-27 17:11 | disposition home health service (06) | DRG 871 ==
LOC: EDUNIT# → ED 23:39 → MS3 08-23 03:17
PROVIDERS: ADMIT Specialist; ATTEND Family Medicine
DX: N30.00 Acute cystitis without hematuria (principal); A41.9 Sepsis, unspecified organism; E11.9 Type 2 diabetes mellitus without complications; G93.41 Metabolic encephalopathy; N13.6 Pyonephrosis; N17.9 Acute kidney failure, unspecified; N13.8 Other obstructive and reflux uropathy; I67.2 Cerebral atherosclerosis; F01.50 Vascular dementia, unspecified severity, without behavioral disturbance, psychotic disturbance, mood disturbance, and anxiety; E11.22 Type 2 diabetes mellitus with diabetic chronic kidney disease; E11.65 Type 2 diabetes mellitus with hyperglycemia; I12.9 Hypertensive chronic kidney disease with stage 1 through stage 4 chronic kidney disease, or unspecified chronic kidney disease; N18.3 Chronic kidney disease, stage 3 (moderate); N40.1 Benign prostatic hyperplasia with lower urinary tract symptoms; R33.9 Retention of urine, unspecified; D50.9 Iron deficiency anemia, unspecified; R47.1 Dysarthria and anarthria; F15.10 Other stimulant abuse, uncomplicated; I69.391 Dysphagia following cerebral infarction; R13.12 Dysphagia, oropharyngeal phase; I25.2 Old myocardial infarction; Z91.19 Patient's noncompliance with other medical treatment and regimen; T38.3X6A Underdosing of insulin and oral hypoglycemic [antidiabetic] drugs, initial encounter; Z79.4 Long term (current) use of insulin; K21.9 Gastro-esophageal reflux disease without esophagitis; Z79.82 Long term (current) use of aspirin; I10 Essential (primary) hypertension; I65.29 Occlusion and stenosis of unspecified carotid artery
CPT/HCPCS: 36415; 51702; 74176; 80048; 80053; 80061; 80069; 81001; 82009; 82607; 82728; 83036; 83540; 83615; 83690; 83735; 84443; 84466; 85025; 85027; 85044; 87040; 87077; 87086; 87181; 92526; 92610; 96361; 96374; 96375; 96376; 97116; 97161; 97166; 97530; 97535; 99284; A9270; G0103; J1650; J1815; J2060; J2270; J2916; 80306; 81003; 83721; 84153; 99283

== ENCOUNTER 2018-09-01 10:23 | Outpatient (CLI) | payer MEDICARE, MEDICAID | END 2018-09-01 10:24 | disposition critical access hospital (66) | LOC: EMS 10:23 | PROVIDERS: ATTEND Surgery | DX: R55 Syncope and collapse (principal) | CPT/HCPCS: A0425; A0427 ==

== ENCOUNTER 2018-09-01 10:52 | Emergency (ER) | payer MEDICARE, MEDICAID ==
[2018-09-01] MEDS ORDERED: SODIUM CHLORIDE 0.9% 1,000 ML IV ONE ×2 (11:11)
--- NOTE | 2018-09-01 11:13 | ED Physician Documentation ---
History of Present Illness - Stated complaint Stated Complaint: DIZZY - Chief complaint Chief Complaint: Neuro - History obtained from History obtained from: Patient, Family, EMS - History of Present Illness Timing: Today - Additonal information Additional information: 63-year-old type II diabetic on insulin has developed symptoms of elevated blood glucose and low blood pressure this morning. The patient's family went to stand him up this morning and he was a little off and they checked his blood pressure was low they called the ambulance. The patient has been recently admitted into the hospital for urinary tract infection with sepsis and dehydration with urinary retention. He does have a Bryant catheter in place now. Review of Systems Constitutional: reports: Fatigue. denies: Fever Eyes: denies: Decreased vision Ears: denies: Ear pain Nose: denies: Rhinorrhea / runny nose, Congestion Throat: denies: Sore throat Cardiac: denies: Chest pain / pressure, Palpitations Respiratory: denies: Dyspnea, Cough GI: denies: Abdominal Pain, Nausea, Vomiting, Constipation, Diarrhea : denies: Dysuria, Frequency Skin: denies: Rash Musculoskeletal: denies: Neck pain, Back pain, Extremity pain Neurologic: reports: Generalized weakness. denies: Focal weakness, Numbness, Headache, Head injury, LOC PD PAST MEDICAL HISTORY - Past Medical History Cardiovascular: Hypertension, High cholesterol, Other Respiratory: None Neuro: CVA Endocrine/Autoimmune: Type 2 diabetes GI: None : Incontinence, Other Psych: None Musculoskeletal: None Derm: None - Past Surgical History Past Surgical History: Yes - Present Medications Home Medications: Ambulatory Orders Medication Instructions Recorded Confirmed Aspirin [Aspir 81] 81 mg PO DAILY 11/17/12 08/22/18 Amlodipine Besylate 10 mg PO DAILY #30 tablet 08/27/18 Doxazosin [Cardura] 1 mg PO QPM #30 tablet 08/27/18 Insulin Aspart (Vial) [NovoLOG 10 - 20 unit SQ TIDWM #1 vial 08/27/18 (VIAL FOR ED USE)] Insulin Glargine [Lantus Solostar] 20 unit SUBQ BID #1 pen 08/27/18 Lisinopril [Zestril] 20 mg PO DAILY #30 tablet 08/27/18 Memantine [Namenda] 5 mg PO BID #60 tablet 08/27/18 Multivit,Th Iron,Other Min 1 each PO DAILY #30 tablet 08/27/18 [Thera-M] Pravastatin Sodium [Pravachol] 80 mg PO QPM #30 tablet 08/27/18 Tamsulosin [Flomax] 0.4 mg PO DAILY #30 capsule 08/27/18 levoFLOXacin [Levaquin] 500 mg PO QPM #12 tablet 08/27/18 - Allergies Allergies/Adverse Reactions: Allergies Allergy/AdvReac Type Severity Reaction Status Date / Time No Known Drug Allergies Allergy Verified 09/01/18 10:58 - Social History Does the pt smoke?: No Smoking Status: Never smoker Does the pt drink ETOH?: No Does the pt have substance abuse?: Yes - Immunizations Immunizations are current?: Yes - POLST Patient has POLST: No PD ED PE NORMAL - Vitals Vital signs reviewed: Yes (normal ) - General General: Alert and oriented X 3, No acute distress, Well developed/nourished - HEENT HEENT: Atraumatic, PERRL, EOMI, Other (dry mucous membranes ) - Neck Neck: Supple, no meningeal sign, No bony TTP - Cardiac Cardiac: RRR, No murmur - Respiratory Respiratory: No respiratory distress, Clear bilaterally - Abdomen Abdomen: Soft, Non tender - Back Back: No CVA TTP, No spinal TTP - Derm Derm: Normal color, Warm and dry, No rash - Extremities Extremities: No deformity, No edema - Neuro Neuro: Alert and oriented X 3, supervisor prop making 2-12 intact, No motor deficit, No sensory deficit, Normal speech Eye Opening: Spontaneous Motor: Obeys Commands Verbal: Oriented GCS Score: 15 - Psych Psych: Normal mood, Normal affect Results - Vitals Vitals: Vital Signs - 24 hr 09/01/18 09/01/18 09/01/18 10:55 10:58 12:16 Temperature 36.0 C L Heart Rate 85 85 85 Respiratory 18 17 18 Rate Blood Pressure 100/71 100/73 106/79 O2 Saturation 98 100 99 09/01/18 12:50 Temperature Heart Rate 70 Respiratory 18 Rate Blood Pressure 109/70 O2 Saturation 99 Oxygen O2 Source Room air - EKG (time done) 1059 Rate: Rate (enter#) (88) Ischemia: ST elevation c/w ischemia (minimal anterolateral. ), Q waves, Non specific changes Compare to prior EKG: Changed from prior EKG (SPT 07-04-16 rate has decreased dramatically and the tracing is otherwise similar to a tracing form 10-21-[address]ations .) Computer interpretation: Agree with computer - Labs Labs: Laboratory Tests 09/01/18 09/01/18 09/01/18 12:00 12:00 12:00 WBC 11.0 H RBC 3.81 L Hgb 11.3 L Hct 34.7 L MCV 91.1 MCH 29.8 MCHC 32.7 RDW 14.7 Plt Count 297 MPV 9.1 Neut # (Auto) 8.7 H Lymph # (Auto) 1.5 [place] # (Auto) 0.7 Eos # (Auto) 0.1 Baso # (Auto) 0.0 Absolute Nucleated RBC 0.00 Nucleated RBC % 0.0 Sodium 137 Potassium 4.6 Chloride 102 Carbon Dioxide 24 Anion Gap 11.0 BUN 43 H Creatinine 2.0 H Estimated GFR (MDRD) 34 L Glucose 267 H Lactic Acid Calcium 9.1 Total Bilirubin 0.3 AST 22 ALT 30 Alkaline Phosphatase 82 Troponin I < 0.04 Total Protein 6.9 Albumin 2.8 L Globulin 4.1 Albumin/Globulin Ratio 0.7 L Lipase 21 L Urine Color Urine Clarity Urine pH Ur Specific [place] Urine Protein Urine Glucose (UA) Urine Ketones Urine Occult Blood Urine Nitrite Urine Bilirubin Urine Urobilinogen Ur Leukocyte Esterase Ur Microscopic Review Urine Culture Comments Urine Opiates Screen Ur Oxycodone Screen Urine Methadone Screen Ur Propoxyphene Screen Ur Barbiturates Screen Ur Tricyclics Screen Ur Phencyclidine Scrn Ur Amphetamine Screen U Methamphetamines Scrn U Benzodiazepines Scrn Urine Cocaine Screen U Cannabinoids Screen Ethyl Alcohol < 5.0 09/01/18 09/01/18 12:00 12:08 WBC RBC Hgb Hct MCV MCH MCHC RDW Plt Count MPV Neut # (Auto) Lymph # (Auto) [place] # (Auto) Eos # (Auto) Baso # (Auto) Absolute Nucleated RBC Nucleated RBC % Sodium Potassium Chloride Carbon Dioxide Anion Gap BUN Creatinine Estimated GFR (MDRD) Glucose Lactic Acid 2.0 Calcium Total Bilirubin AST ALT Alkaline Phosphatase Troponin I Total Protein Albumin Globulin Albumin/Globulin Ratio Lipase Urine Color YELLOW Urine Clarity CLEAR Urine pH 5.5 Ur Specific [place] <=1.005 Urine Protein NEGATIVE Urine Glucose (UA) NEGATIVE Urine Ketones NEGATIVE Urine Occult Blood NEGATIVE Urine Nitrite NEGATIVE Urine Bilirubin NEGATIVE Urine Urobilinogen 0.2 (NORMAL) Ur Leukocyte Esterase NEGATIVE Ur Microscopic Review NOT INDICATED Urine Culture Comments NOT INDICATED Urine Opiates Screen NEGATIVE Ur Oxycodone Screen NEGATIVE Urine Methadone Screen NEGATIVE Ur Propoxyphene Screen NEGATIVE Ur Barbiturates Screen NEGATIVE Ur Tricyclics Screen NEGATIVE Ur Phencyclidine Scrn NEGATIVE Ur Amphetamine Screen POSITIVE H U Methamphetamines Scrn POSITIVE H U Benzodiazepines Scrn NEGATIVE Urine Cocaine Screen NEGATIVE U Cannabinoids Screen NEGATIVE Ethyl Alcohol - Rads (name of study) chest Radiology: Prelim report reviewed (Impression: Normal single view chest.), EMP read indepedently, See rad report Procedures - IVC sono (time) 1108 Bedside IVC sono: IVC measures (cm) (0.94), IVC collapsed c insp (cm) (complete), Dehydration (est 1-2 liters after 500ml already in.) PD MEDICAL DECISION MAKING - ED course Complexity details: reviewed old records, reviewed results, re-evaluated patient, considered differential, d/w patient, d/w family ED course: 63-year-old male diabetic on insulin has elevated glucose and low blood pressure. He is found to be dehydrated on interrogation of the inferior vena cava. He is administered saline. The remainder of his diagnostics demonstrate evidence of dehydration and use of amphetamines. He is given 2 liters saline and 5 units of regular insulin and he is fed. The general principles of dehydration with diabetes and hyperglycemia are again reviewed with the patient. Departure - Departure Disposition: 01 Home, Self Care Clinical Impression: Dehydration, Hyperglycemia Condition: Stable Instructions: ED Dehydration, ED Hyperglycemia Diabetic Follow-Up: Your, doctor [Other]
--- NOTE | 2018-09-01 12:05 | XRAY Report ---
Reason: hypotension Procedure Date: 09/01/2018 Accession Number: [id number] / [id number] Procedure: XR - Chest 1 View X-Ray CPT Code: 09498 FULL RESULT: EXAM: CHEST RADIOGRAPHY EXAM DATE: 09/01/2018 11:46 AM. CLINICAL HISTORY: Hypotension. COMPARISON: CHEST 2 VIEW PA/LAT 10/21/2014 11:38 PM. TECHNIQUE: 1 view. FINDINGS: Lungs/Pleura: No focal opacities evident. No pleural effusion. No pneumothorax. Mediastinum: Within exam limitations, the cardiomediastinal contour is normal. Other: None. IMPRESSION: Normal single view chest. RADIA
[2018-09-01 12:13] LABS: MUDS CUTOFF CONCENTRATIONS CUTOFF CONC BELOW:
[2018-09-01 12:13] LABS: BASOPHILS % (AUTO) 0.4 %; EOSINOPHILS # (AUTO) 0.1 10^3/uL (0.0-0.7); HGB - HEMOGLOBIN 11.3 g/dL (14.0-18.0); LYMPHOCYTES # (AUTO) 1.5 10^3/uL (1.5-3.5); LYMPHOCYTES % (AUTO) 13.2 %; MEAN CORPUSCULAR HEMOGLOBIN 29.8 pg (27.0-31.0); MEAN CORPUSCULAR HGB CONC 32.7 g/dL (32.0-36.0); MEAN CORPUSCULAR VOLUME 91.1 fL (80.0-94.0); MEAN PLATELET VOLUME 9.1 fL (7.4-11.4); MONOCYTES # (AUTO) 0.7 10^3/uL (0.0-1.0); MONOCYTES % (AUTO) 6.3 %; NEUTROPHILS # (AUTO) 8.7 10^3/uL (1.5-6.6); NEUTROPHILS % (AUTO) 79.1 %; PLT - PLATELET COUNT 297 10^3/uL (130-450); RED BLOOD COUNT 3.81 10^6/uL (4.70-6.10); RED CELL DISTRIBUTION WIDTH 14.7 % (12.0-15.0)
[2018-09-01 12:17] LABS: BILIRUBIN,URINE NEGATIVE (NEGATIVE); GLUCOSE, URINE (UA) NEGATIVE (NEGATIVE); KETONES,URINE (UA) NEGATIVE (NEGATIVE); LEUKOCYTE ESTERASE, URINE NEGATIVE (NEGATIVE); NITRITE,URINE NEGATIVE (NEGATIVE); OCCULT BLOOD,URINE NEGATIVE (NEGATIVE); PH,URINE 5.5 PH (5.0-7.5); PROTEIN,URINE NEGATIVE (NEGATIVE); UROBILINOGEN,URINE 0.2 (NORMAL) E.U./dL (NORMAL)
[2018-09-01 12:24] LABS: ALBUMIN 2.8 g/dL (3.2-5.5); ALBUMIN/GLOBULIN RATIO 0.7 (1.0-2.2); ALKALINE PHOSPHATASE 82 IU/L (42-121); ALT ALANINE AMINOTRANSFERASE 30 IU/L (10-60); AST ASPARTATE AMINOTRANSFERASE 22 IU/L (10-42); BILIRUBIN,TOTAL 0.3 mg/dL (0.2-1.0); BUN - BLOOD UREA NITROGEN 43 mg/dL (6-20); CALCIUM 9.1 mg/dL (8.5-10.3); CARBON DIOXIDE - CO2 24 mmol/L (21-32); CHLORIDE 102 mmol/L (101-111); GFR - MDRD 34 (>89); GLUCOSE 267 mg/dL (70-100); LIPASE 21 U/L (22-51); SODIUM 137 mmol/L (135-145); TOTAL PROTEIN 6.9 g/dL (6.7-8.2)
[2018-09-01 12:28] LABS: CLARITY,URINE CLEAR (CLEAR); METHAMPHETAMINES SCREEN, URINE POSITIVE (NEGATIVE)
[2018-09-01 12:29] LABS: AMPHETAMINE SCREEN,URINE POSITIVE (NEGATIVE); BENZODIAZEPINES SCREEN, URINE NEGATIVE (NEGATIVE); COCAINE SCREEN URINE NEGATIVE (NEGATIVE); METHADONE SCREEN, URINE NEGATIVE (NEGATIVE); OPIATE SCREEN, URINE NEGATIVE (NEGATIVE); OXYCODONE SCREEN, URINE NEGATIVE (NEGATIVE); PROPOXYPHENE SCREEN, URINE NEGATIVE (NEGATIVE); TRICYCLIC ANTIDEPRESSANT,URINE NEGATIVE (NEGATIVE)
[2018-09-01] MEDS ORDERED: INSULIN REGULAR HUMAN 100 UNIT/1 ML 10 ML MDV IVP STA (13:11)
[2018-09-01 14:18] VITALS: BP 100/61
== END 2018-09-01 14:37 | disposition home or self-care (01) ==
LOC: EDUNIT# → ED 10:52
DX: E86.0 Dehydration (principal); E11.65 Type 2 diabetes mellitus with hyperglycemia; Z79.4 Long term (current) use of insulin; F15.90 Other stimulant use, unspecified, uncomplicated; I10 Essential (primary) hypertension; R94.31 Abnormal electrocardiogram [ECG] [EKG]; Z86.73 Personal history of transient ischemic attack (TIA), and cerebral infarction without residual deficits; Z79.82 Long term (current) use of aspirin
CPT/HCPCS: 36415; 71045; 80053; 81003; 83605; 83690; 84484; 85025; 87040; 93005; 96360; 96361; 99283; 99284; J1815; 80306; 80320; 81001; 87086

== ENCOUNTER 2018-09-13 20:50 | Outpatient (CLI) | payer MEDICARE, MEDICAID | END 2018-09-13 20:51 | disposition critical access hospital (66) | LOC: EMS 20:50 | PROVIDERS: ATTEND Surgery | DX: R10.9 Unspecified abdominal pain (principal) | CPT/HCPCS: A0425; A0429 ==

== ENCOUNTER 2018-09-13 21:18 | Inpatient (IN) | payer MEDICARE, MEDICAID ==
[2018-09-13 21:44] LABS: BASOPHILS # (AUTO) 0.1 10^3/uL (0.0-0.1); BASOPHILS % (AUTO) 0.7 %; EOSINOPHILS % (AUTO) 0.1 %; HGB - HEMOGLOBIN 11.3 g/dL (14.0-18.0); LYMPHOCYTES # (AUTO) 1.2 10^3/uL (1.5-3.5); LYMPHOCYTES % (AUTO) 9.7 %; MEAN CORPUSCULAR HEMOGLOBIN 29.7 pg (27.0-31.0); MEAN CORPUSCULAR VOLUME 89.9 fL (80.0-94.0); MONOCYTES # (AUTO) 0.8 10^3/uL (0.0-1.0); MONOCYTES % (AUTO) 6.1 %; NEUTROPHILS # (AUTO) 10.8 10^3/uL (1.5-6.6); NEUTROPHILS % (AUTO) 83.4 %; PLT - PLATELET COUNT 255 10^3/uL (130-450); RED BLOOD COUNT 3.82 10^6/uL (4.70-6.10); RED CELL DISTRIBUTION WIDTH 14.4 % (12.0-15.0); WHITE BLOOD COUNT 12.9 x10^3/uL (4.8-10.8)
--- NOTE | 2018-09-13 21:50 | ED Physician Documentation ---
PD HPI ABD PAIN - Stated complaint Stated Complaint: ABD PAIN - Chief complaint Chief Complaint: Abd Pain - History obtained from History obtained from: Patient, EMS - History of Present Illness Timing - onset: Enter time (15:00), Today Timing - duration: Hours Timing - details: Gradual onset, Waxing and waning Pain level now: 8 Quality: Pain Location: Other (lower abdomen) Radiation: Other (no radiation) Improved by: Other (no ameliorating factors) Worsened by: Other (no exacerbating factors) Associated symptoms: Nausea. No: Fever, Vomiting, Diarrhea, Constipation, Melena, Hematochezia Recently seen: Admitted (admitted earlier this month. also T+R mid-month from [facility] ED) - Additional information Additional information: c/o abdominal pain since 3 PM. He tells me this is due to high blood sugar, as he had similar discomfort in the past associated with high blood sugar. He says he checks his blood sugars and it was "like 350" earlier today Review of Systems Constitutional: denies: Fever, Chills, Sweats Cardiac: reports: Reviewed and negative Respiratory: reports: Reviewed and negative GI: reports: Abdominal Pain, Nausea. denies: Abdominal Swelling, Vomiting, Constipation, Diarrhea, Hematemesis, Bloody / black stool : reports: Other (lara catheter in place from admission earlier this month) Skin: reports: Reviewed and negative Musculoskeletal: reports: Reviewed and negative Neurologic: denies: Generalized weakness, Focal weakness, Numbness, Headache PD PAST MEDICAL HISTORY - Past Medical History Cardiovascular: Hypertension, High cholesterol, Other Respiratory: None Neuro: CVA Endocrine/Autoimmune: Type 2 diabetes GI: None : Incontinence, Other Psych: None Musculoskeletal: None Derm: None - Past Surgical History Past Surgical History: Yes - Present Medications Home Medications: Ambulatory Orders Medication Instructions Recorded Confirmed Aspirin [Aspir 81] 81 mg PO DAILY 11/17/12 08/22/18 Amlodipine Besylate 10 mg PO DAILY #30 tablet 08/27/18 Doxazosin [Cardura] 1 mg PO QPM #30 tablet 08/27/18 Insulin Aspart (Vial) [NovoLOG 10 - 20 unit SQ TIDWM #1 vial 08/27/18 (VIAL FOR ED USE)] Insulin Glargine [Lantus Solostar] 20 unit SUBQ BID #1 pen 08/27/18 Lisinopril [Zestril] 20 mg PO DAILY #30 tablet 08/27/18 Memantine [Namenda] 5 mg PO BID #60 tablet 08/27/18 Multivit,Th Iron,Other Min 1 each PO DAILY #30 tablet 08/27/18 [Thera-M] Pravastatin Sodium [Pravachol] 80 mg PO QPM #30 tablet 08/27/18 Tamsulosin [Flomax] 0.4 mg PO DAILY #30 capsule 08/27/18 levoFLOXacin [Levaquin] 500 mg PO QPM #12 tablet 08/27/18 Cephalexin [Keflex] 500 mg PO Q6H #28 capsule 09/14/18 - Allergies Allergies/Adverse Reactions: Allergies Allergy/AdvReac Type Severity Reaction Status Date / Time No Known Drug Allergies Allergy Verified 09/13/18 21:26 - Social History Does the pt smoke?: No Smoking Status: Never smoker Does the pt drink ETOH?: No Does the pt have substance abuse?: Yes - Immunizations Immunizations are current?: Yes - POLST Patient has POLST: No PD ED PE NORMAL - Vitals Vital signs reviewed: Yes - General General: Alert and oriented X 3, Well developed/nourished, Other (appears uncomfortable, moaning in pain at times. cooperative, follows commands) - HEENT HEENT: PERRL, EOMI, Moist mucous membranes - Neck Neck: Supple, no meningeal sign - Cardiac Cardiac: RRR, No murmur - Respiratory Respiratory: No respiratory distress, Clear bilaterally - Abdomen Abdomen: Normal bowel sounds, Soft, Non tender (nontender throughtout (all four quadrants and periumbilical)), Non distended - Male Male : Other (lara catheter in place with urine in leg bag; tubing appears cloudy with sediment and white film on inner aspect of the tubing) - Back Back: No CVA TTP - Derm Derm: Normal color, Warm and dry - Extremities Extremities: No edema Results - Vitals Vitals: Vital Signs - 24 hr 09/13/18 09/13/18 09/14/18 21:22 23:37 00:21 Temperature 37 C Heart Rate 107 H 88 Respiratory 16 19 19 Rate Blood Pressure 141/82 H 114/67 O2 Saturation 96 98 09/14/18 09/14/18 09/14/18 00:52 01:06 04:27 Temperature Heart Rate 80 75 Respiratory 17 17 24 Rate Blood Pressure 116/71 O2 Saturation 96 97 09/14/18 04:35 Temperature Heart Rate 75 Respiratory 20 Rate Blood Pressure 128/78 O2 Saturation 96 Oxygen O2 Source Room air - Labs Labs: Laboratory Tests 09/13/18 09/13/18 09/13/18 21:36 21:36 21:36 WBC 12.9 H RBC 3.82 L Hgb 11.3 L Hct 34.3 L MCV 89.9 MCH 29.7 MCHC 33.0 RDW 14.4 Plt Count 255 MPV 9.0 Neut # (Auto) 10.8 H Lymph # (Auto) 1.2 L [place] # (Auto) 0.8 Eos # (Auto) 0.0 Baso # (Auto) 0.1 Absolute Nucleated RBC 0.00 Nucleated RBC % 0.0 Sodium 135 Potassium 4.4 Chloride 100 L Carbon Dioxide 25 Anion Gap 10.0 BUN 26 H Creatinine 1.2 Estimated GFR (MDRD) 61 L Glucose 345 H Calcium 9.3 Total Bilirubin 0.6 AST 15 ALT 18 Alkaline Phosphatase 73 Total Protein 7.5 Albumin 3.3 Globulin 4.2 Albumin/Globulin Ratio 0.8 L Lipase 35 Urine Color Urine Clarity Urine pH Ur Specific Ferguson Urine Protein Urine Glucose (UA) Urine Ketones Urine Occult Blood Urine Nitrite Urine Bilirubin Urine Urobilinogen Ur Leukocyte Esterase Urine RBC Urine WBC Ur Squamous Epith Cells Urine Bacteria Urine Yeast Ur Microscopic Review Urine Culture Comments Serum Ketones NEGATIVE 09/13/18 22:12 WBC RBC Hgb Hct MCV MCH MCHC RDW Plt Count MPV Neut # (Auto) Lymph # (Auto) [place] # (Auto) Eos # (Auto) Baso # (Auto) Absolute Nucleated RBC Nucleated RBC % Sodium Potassium Chloride Carbon Dioxide Anion Gap BUN Creatinine Estimated GFR (MDRD) Glucose Calcium Total Bilirubin AST ALT Alkaline Phosphatase Total Protein Albumin Globulin Albumin/Globulin Ratio Lipase Urine Color YELLOW Urine Clarity HAZY Urine pH 5.5 Ur Specific Ferguson 1.010 Urine Protein NEGATIVE Urine Glucose (UA) >=1000 H Urine Ketones NEGATIVE Urine Occult Blood SMALL H Urine Nitrite NEGATIVE Urine Bilirubin NEGATIVE Urine Urobilinogen 0.2 (NORMAL) Ur Leukocyte Esterase SMALL H Urine RBC 6-10 H Urine WBC 11-25 H Ur Squamous Epith Cells NONE SEEN Urine Bacteria Rare Urine Yeast PRESENT Ur Microscopic Review INDICATED Urine Culture Comments INDICATED Serum Ketones - Rads (name of study) CT A/P Radiology: Prelim report reviewed, See rad report PD MEDICAL DECISION MAKING - ED course Complexity details: reviewed old records, reviewed results, re-evaluated patient, considered differential, d/w patient ED course: UA s/o UTI. I asked him if he is on antibiotics and he says he is not. I ask if he has a urologist (discharge summary from earlier this month indicates he was to f/u with urology in 1-2 weeks); patient says "not yet", and that he does not know if he has any appointment to see one. Abnormalities on CT A/P were mostly present on previous study, and mostly improved (such as hydronephrosis); there is a new RLL pulmonary infiltrate. Given Rocephin in ED to cover for UTI and early pneumonia. He seemed to respond to doses of morphine, with less moaning and reported improvement, but he requir ed repeat dose. Plan was to discharge him home with rx for keflex, but contact for patient indicated they could not arrange to pick him up until later in the morning. He spent several more hours in the ED, occasionally moaning in pain; serial abdominal exams continued to reveal no tenderness throughout abdomen. He was given 10mg PO oxycodone with less improvement that he had with the IV morphine. As the IV had been discontinued in anticipation of discharge, IM dilaudid given with good relief that lasted for a few hours before the pain recurred. After over 9 hours in ED, we were able to arrange for transport home; unfortunately, at that time, he was clearly too weak to stand up and remain standing for more than a few seconds. He would become pale and required assistance just to prevent him from falling, and he was helped back down to the bed. He tried to stand two more times, as he was interested in being discharged, but with the same result. He was agreeable to admission. He did not request any pain medication of me during ED stay (he asked nurse for pain medication at one point during stay), and when discharge plans were discussed, he did not ask about pain medications. Departure - Departure Disposition: 66 [facility] DC/Xfer Clinical Impression: Abdominal pain, Urinary tract infection, Pneumonia Prescriptions: Cephalexin [Keflex] 500 mg PO Q6H #28 capsule
[2018-09-13 21:56] LABS: ALBUMIN 3.3 g/dL (3.2-5.5); ALBUMIN/GLOBULIN RATIO 0.8 (1.0-2.2); BILIRUBIN,TOTAL 0.6 mg/dL (0.2-1.0); CALCIUM 9.3 mg/dL (8.5-10.3); CREATININE 1.2 mg/dL (0.6-1.2); TOTAL PROTEIN 7.5 g/dL (6.7-8.2)
[2018-09-13] MEDS ORDERED: MORPHINE 2 MG/ML SYRINGE IVP STA (22:12)
[2018-09-13] MEDS ORDERED: ONDANSETRON 4 MG/2 ML VIAL IVP STA (22:12)
[2018-09-13] MEDS ORDERED: SODIUM CHLORIDE 0.9% 1,000 ML IV STA (22:14)
[2018-09-13 22:21] LABS: BILIRUBIN,URINE NEGATIVE (NEGATIVE); GLUCOSE, URINE (UA) >=1000 mg/dL (NEGATIVE); KETONES,URINE (UA) NEGATIVE (NEGATIVE); LEUKOCYTE ESTERASE, URINE SMALL (NEGATIVE); NITRITE,URINE NEGATIVE (NEGATIVE); OCCULT BLOOD,URINE SMALL (NEGATIVE); PH,URINE 5.5 PH (5.0-7.5); PROTEIN,URINE NEGATIVE (NEGATIVE); UROBILINOGEN,URINE 0.2 (NORMAL) E.U./dL (NORMAL)
[2018-09-13 22:23] LABS: CLARITY,URINE HAZY (CLEAR)
[2018-09-13 22:31] LABS: BACTERIA,URINE Rare /HPF (None Seen); SQUAMOUS EPITHELIAL CELL,UR NONE SEEN (<= Few); YEAST,URINE PRESENT
[2018-09-13] MEDS ORDERED: IOVERSOL 320 100 ML VIAL IVP ONE ×2 (22:31→22:43)
--- NOTE | 2018-09-13 23:17 | CT Report ---
Reason: abd. pain Procedure Date: 09/13/2018 Accession Number: [id number] / [id number] Procedure: CT - Abdomen/Pelvis W CPT Code: FULL RESULT: EXAM: CT ABDOMEN AND PELVIS EXAM DATE: 09/13/2018 10:48 PM. CLINICAL HISTORY: Abdominal pain. COMPARISONS: ABDOMEN/PELVIS W/O 08/23/2018 1:18 AM. TECHNIQUE: Routine helical CT imaging was performed through the abdomen and pelvis. IV contrast: [id number] 100ML. Enteric contrast: No. Reconstructions: Coronal and sagittal. In accordance with CT protocol optimization, one or more of the following dose reduction techniques were utilized for this exam: automated exposure control, adjustment of mA and/or KV based on patient size, or use of iterative reconstructive technique. FINDINGS: Lung Bases: Focal areas of consolidation in the right lower lobe. Heart size upper normal. Trace pericardial effusion. Coronary artery calcifications. Possible wall thickening in the distal esophagus. Liver: Fatty infiltration. Gallbladder/Bile Ducts: Unremarkable. Spleen: Normal. Pancreas: Mild atrophy. Adrenal Glands: Normal. Kidneys: Small left renal cyst. Trace bilateral hydronephrosis, left greater than right. Peritoneal Cavity/Bowel: Large amount of stool in the colon. No bowel obstruction seen. No diverticulitis. No free air or free fluid. No lymphadenopathy. Appendix is retrocecal and appears normal. Pelvic Organs: Decompressed urinary bladder with Bryant catheter. Bladder wall thickening. Vasculature: Moderate atherosclerosis. No aortic aneurysm. Bones: Degenerative changes in the spine. Mild grade 1 degenerative spondylolisthesis at L3-L4. Degenerative joint disease in the hips. Other: None. IMPRESSION: 1. Decompressed urinary bladder with wall thickening. This may represent hypertrophy. Cystitis also possible. 2. Trace bilateral hydronephrosis, improved compared with the prior exam, probably related to the bladder process. 3. New focal areas of consolidation in the right lower lobe. Given the short interval since the prior exam, these presumably represent pneumonia or aspiration. 4. Borderline heart size with coronary artery calcifications and trace pericardial effusion. 5. Possible wall thickening in the distal esophagus. Correlate for any evidence of esophagitis. 6. Fatty liver. 7. Large amount of stool in the colon. RADIA
[2018-09-14] MEDS ORDERED: MORPHINE 2 MG/ML SYRINGE IVP STA (00:01)
[2018-09-14] MEDS ORDERED: cefTRIAXone 1 GM VIAL IVP STA (00:01)
[2018-09-14] MEDS ORDERED: oxyCODONE 5 MG TABLET PO STA (03:15)
[2018-09-14] MEDS ORDERED: HYDROmorphone 1 MG/ML CARPUJECT IM STA (04:16)
[2018-09-14] MEDS ORDERED: PROCHLORPERAZINE 10 MG/2 ML VIAL IVP PRN (08:14)
[2018-09-14 09:09] LABS: INR 1.2 (0.8-1.2); PT - PROTHROMBIN TIME 13.2 secs (9.9-12.6)
[2018-09-14 09:13] LABS: BASOPHILS % (AUTO) 0.2 %; EOSINOPHILS % (AUTO) 0.1 %; HGB - HEMOGLOBIN 11.6 g/dL (14.0-18.0); LYMPHOCYTES # (AUTO) 1.1 10^3/uL (1.5-3.5); LYMPHOCYTES % (AUTO) 7.5 %; MEAN CORPUSCULAR HEMOGLOBIN 29.7 pg (27.0-31.0); MEAN CORPUSCULAR HGB CONC 33.2 g/dL (32.0-36.0); MEAN CORPUSCULAR VOLUME 89.5 fL (80.0-94.0); MEAN PLATELET VOLUME 9.1 fL (7.4-11.4); MONOCYTES % (AUTO) 6.8 %; NEUTROPHILS # (AUTO) 12.2 10^3/uL (1.5-6.6); NEUTROPHILS % (AUTO) 85.4 %; PLT - PLATELET COUNT 265 10^3/uL (130-450); RED CELL DISTRIBUTION WIDTH 14.3 % (12.0-15.0); WHITE BLOOD COUNT 14.3 x10^3/uL (4.8-10.8)
[2018-09-14 09:17] LABS: ALBUMIN 3.2 g/dL (3.2-5.5); ALBUMIN/GLOBULIN RATIO 0.7 (1.0-2.2); BILIRUBIN,TOTAL 0.7 mg/dL (0.2-1.0); CALCIUM 9.6 mg/dL (8.5-10.3); CREATININE 1.3 mg/dL (0.6-1.2); TOTAL PROTEIN 7.7 g/dL (6.7-8.2)
[2018-09-14] MEDS: MULTIVITAMIN TABLET PO SCH (09:42)
[2018-09-14] MEDS: POLYETHYLENE GLYCOL 3350 17 GM PACKET PO SCH (09:42)
[2018-09-14] MEDS: ASPIRIN EC 81 MG TABLET PO SCH (09:42)
[2018-09-14] MEDS: ACETAMINOPHEN 325 MG TABLET PO PRN ×3 (09:42→19:02)
[2018-09-14] MEDS: MEMANTINE 5 MG TABLET PO SCH ×2 (09:42→21:48)
[2018-09-14] MEDS: TAMSULOSIN 0.4 MG CAPSULE PO SCH (09:42)
[2018-09-14] MEDS: SODIUM CHLORIDE FLUSH 0.9% 10 ML SYRINGE IVP SCH ×3 (09:43→23:49)
[2018-09-14 09:50] LABS: BILIRUBIN,URINE NEGATIVE (NEGATIVE); GLUCOSE, URINE (UA) 100 mg/dL (NEGATIVE); KETONES,URINE (UA) NEGATIVE (NEGATIVE); LEUKOCYTE ESTERASE, URINE SMALL (NEGATIVE); NITRITE,URINE NEGATIVE (NEGATIVE); OCCULT BLOOD,URINE TRACE-INTA (NEGATIVE); PROTEIN,URINE TRACE mg/dL (NEGATIVE); UROBILINOGEN,URINE 0.2 (NORMAL) E.U./dL (NORMAL)
[2018-09-14 09:51] LABS: HB2 TOTAL 12.6 g/dL; HEMOGLOBIN A1C 1.08 g/dL
[2018-09-14 09:53] LABS: CLARITY,URINE CLOUDY (CLEAR)
[2018-09-14 10:04] LABS: BACTERIA,URINE Many /HPF (None Seen); RBC,URINE 0-5 /HPF (0-5); SQUAMOUS EPITHELIAL CELL,UR FEW Squamous (<= Few)
[2018-09-14 10:05] LABS: YEAST,URINE PRESENT
--- NOTE | 2018-09-14 10:16 | XRAY Report ---
Reason: RLL pneumonia on Abd CT last night Procedure Date: 09/14/2018 Accession Number: [id number] / [id number] Procedure: XR - Chest 2 View X-Ray CPT Code: 11589 FULL RESULT: EXAM: CHEST RADIOGRAPHY EXAM DATE: 09/14/2018 09:20 AM. CLINICAL HISTORY: RLL pneumonia on Abd CT last night. COMPARISON: CHEST 1 VIEW 09/01/2018 11:34 AM ABDOMEN/PELVIS W/ 09/13/2018 10:36 PM ABDOMEN/PELVIS W/O 08/23/2018 1:18 AM. TECHNIQUE: 2 views. FINDINGS: Lungs/Pleura: There is mild patchy consolidation at the posterior base of the right lower lobe, better seen on recent prior CT. No pleural effusion. No pneumothorax. Lung volumes are slightly low. There is asymmetric mild elevation of the right hemidiaphragm. Mediastinum: Heart and mediastinal contours are unremarkable. Other: No acute osseous abnormality. There are mild degenerative disk changes of the thoracic spine. IMPRESSION: Mild patchy consolidation at the posterior base of the right lower lobe, better seen on recent prior CT. Findings are consistent with aspiration or pneumonia. RADIA
[2018-09-14] MEDS: INSULIN ASPART 300 UNIT/3 ML PEN SUBQ SCH ×3 (11:47→21:47)
[2018-09-14] MEDS: AMPICILLIN/SULBACTAM 1.5 GM in SODIUM CHLORIDE 0.9% MINIBAG 100 ML IV SCH ×3 (11:47→23:58)
[2018-09-14] MEDS: cefTRIAXone 2 GM in SODIUM CHLORIDE 0.9% MINIBAG 100 ML IV SCH (12:33)
[2018-09-14] MEDS: HYDROmorphone 1 MG/ML CARPUJECT IVP PRN ×4 (16:51→23:48)
[2018-09-14] MEDS: SACCHAROMYCES BOULARDII 250 MG CAPSULE PO SCH (16:59)
[2018-09-14] MEDS: SODIUM CHLORIDE FLUSH 0.9% 10 ML SYRINGE IVP PRN ×3 (17:58→21:59)
--- NOTE | 2018-09-14 18:28 | HISTORY & PHYSICAL EXAMINATION ---
DATE OF SERVICE: 09/14/2018 Physician: Mili Allan MD HISTORY OF PRESENT ILLNESS: This is a 63-year-old white male with a history of multi-infarct dementia, insulin-dependent diabetes, methamphetamine abuser, had an admission here from 08/23/2018-08/27/2018 with acute kidney injury, hydronephrosis, urinary tract infection, urinary outlet obstruction, who required Bryant insertion and went home with a chronic Bryant. He was to see Urology, but did not see them. The patient lives alone, but has people visit him, some of who are his caregivers. There is mention that some of the visitors steal his needles. The patient presents now with complaints of pain, is moaning from pain, and has been in the emergency room overnight, requiring several doses of narcotics using morphine, oxycodone, and Dilaudid. His workup has shown that he has an abnormal urinalysis, showing a UTI, as well as a right lower lobe infiltrate noted, as part of report of an abdominal CT. The plan had been to use a dose of IV antibiotics, transition to p.o. antibiotics, and discharge him home; however, as he was getting out of the [facility], he had near syncope in the emergency room and is excessively weak. The patient is a poor historian because of his multi- infarct dementia, uses a cane because of his ataxia and prior strokes, and still has intermittent abdominal pain. He is being admitted for management of all of the above. PAST MEDICAL HISTORY: Multi-infarct dementia, insulin-dependent diabetes, methamphetamine abuser, recent ANDREINA from hydronephrosis due to prostatic hypertrophy, needing chronic Bryant for the past 3 weeks, was noncompliant with Urology outpatient appointment. ALLERGIES: NONE. MEDICATIONS 1. Flomax 0.4 mg daily. 2. Pravastatin 80 mg every night. 3. Multivitamin 1 daily. 4. Namenda 5 mg b.i.d. 5. Lisinopril 20 mg daily. 6. Insulin 20 units of Lantus b.i.d. 7. Insulin aspart 10-20 units subcutaneous t.i.d. with meals. 8. Doxazosin 1 mg every night. 9. Aspirin 81 mg daily. 10. Amlodipine 10 mg daily. FAMILY HISTORY: Noncontributory. SOCIAL HISTORY: He uses methamphetamine IV injections about twice a week for over 10 years, according to the old records. He is a nonsmoker, uses no alcohol. His home situation is that he lives alone and has caregivers, Home Health is also reportedly taking care of him. REVIEW OF SYSTEMS: When asked why he did not get to his urology and neurology appointments, he answers "I don't know." Another note states that his sister is supposed to be his transporter to his medical appointments. He has a girlfriend, but is not , she does not live with him. Visitors that come to his house are known to "steal his needles." He has not had complaints of nausea, vomiting, fever or chills, chest pain or shortness of breath; however, he is a poor historian. A comprehensive review of systems was performed with questioning the patient and chart review, and the pertinent positives are listed, the rest are negative. PHYSICAL EXAMINATION GENERAL: Unkempt white male. He is currently in no distress. Alert, focuses and answers me with short sentences. VITAL SIGNS: Blood pressure 144/80, heart rate 102, in sinus tachycardia, afebrile, room air saturation 92-96%. HEENT: Shows that he is disheveled, poorly kempt. He has halitosis. Poor oral dentition. His mucous membranes are moist. NECK: Without JVD, and it is supple. CHEST: Clear. HEART: [place] sounds are normal without murmurs. ABDOMEN: Soft, nontender. No distention. No guarding or rebound. A Bryant cath is present. EXTREMITIES: No clubbing, cyanosis or edema. SKIN: Dirty and dirty his fingernails. NEUROLOGIC: Confused, moving all extremities spontaneously. LABORATORIES: BUN 26, creatinine 1.2, and on repeat, BUN 24, creatinine 1.3. Glucose is running 302-345. A1c is 10. Phosphorus 1.5. Liver tests normal. Troponin not detectable. Lipase normal. INR normal. White blood count 14.3, hemoglobin 11.6, which is his baseline, and platelet count normal at 265. Urinalysis shows cloudy, hazy urine. The pH is 5.5, greater than 1000 glucose, small occult blood, small leukocyte esterase, many red cells and white blood cells, and rare bacteria are seen. CHEST X-RAY: Right posterior and lower lobe infiltrate. ABDOMINAL CT: The urinary bladder is decompressed and a Bryant catheter is noted in position, but the bladder wall is thickened, suggesting cystitis, there is trace bilateral hydronephrosis, which is improved from 08/23/2018. There is consolidation of the right lower lobe, heart size is borderline, and coronary artery calcification is seen, as well as a trace pericardial effusion. There is wall thickening of the distal esophagus, a fatty liver, and a large amount of stool in the colon. IMPRESSION/DIAGNOSES 1. Aspiration pneumonia. 2. Recurrent urinary tract infection. 3. Chronic indwelling Bryant, needed due to obstruction leading to recent hydronephrosis and acute kidney injury. 4. Insulin-dependent diabetes. 5. Multi-infarct dementia. 6. Hypophosphatemia. 7. Constipation. 8. Near syncope/weakness. 9. Abdominal pain requiring narcotics. 10. Methampetamine abuser. PLAN: Admit the patient to a medical/surgical bed. Because of the near syncope, we will put him on telemetry for at least 24 hours to watch for dysrhythmias. Obtain an Echo and evaluate the heart because of the diagnosis of syncope and the borderline cardiomegaly seen on imaging. Start IV antibiotics to cover aspiration pneumonia, we will use Unasyn. Start antibiotics to cover UTI, and in the past, his organisms were not sensitive to all antibiotics. Therefore, we will use Rocephin, which did have sensitivities to the last bacteria. Continue to use narcotics for pain medication for his abdominal pain, which may be from his UTI. Replace the Bryant with a clean device. Continue medications for dementia, start a carbohydrate-controlled diet and sliding scale insulin will be ordered. Replace his phosphate. Follow his CBC and his BMP daily. CODE STATUS: FULL CODE. DEEP VENOUS THROMBOSIS PROPHYLAXIS: TAE stockings and SCDs. ATTESTATION: The patient is expected to be discharged or transferred to another facility within 96 hours: Yes. cc: Calderon Hwang MD TD: 09/14/2018 18:00 HECTOR
[2018-09-14] MEDS: DOXAZOSIN 1 MG TABLET PO SCH (21:48)
[2018-09-14] MEDS: PRAVASTATIN 40 MG TABLET PO SCH (21:48)
[2018-09-15] MEDS ORDERED: LORazepam 2 MG/ML VIAL IVP STA (00:59)
[2018-09-15] MEDS: SODIUM CHLORIDE FLUSH 0.9% 10 ML SYRINGE IVP PRN ×5 (01:19→22:35)
[2018-09-15] MEDS: HYDROmorphone 1 MG/ML CARPUJECT IVP PRN ×7 (02:22→22:35)
[2018-09-15] MEDS: AMPICILLIN/SULBACTAM 1.5 GM in SODIUM CHLORIDE 0.9% MINIBAG 100 ML IV SCH ×3 (06:08→19:37)
[2018-09-15 06:39] LABS: BASOPHILS # (AUTO) 0.1 10^3/uL (0.0-0.1); BASOPHILS % (AUTO) 0.7 %; EOSINOPHILS % (AUTO) 0.1 %; HGB - HEMOGLOBIN 10.5 g/dL (14.0-18.0); LYMPHOCYTES % (AUTO) 6.6 %; MEAN CORPUSCULAR HEMOGLOBIN 29.7 pg (27.0-31.0); MEAN PLATELET VOLUME 8.7 fL (7.4-11.4); MONOCYTES # (AUTO) 1.1 10^3/uL (0.0-1.0); MONOCYTES % (AUTO) 7.7 %; NEUTROPHILS # (AUTO) 12.4 10^3/uL (1.5-6.6); NEUTROPHILS % (AUTO) 84.9 %; PLT - PLATELET COUNT 227 10^3/uL (130-450); RED BLOOD COUNT 3.54 10^6/uL (4.70-6.10); RED CELL DISTRIBUTION WIDTH 14.2 % (12.0-15.0); WHITE BLOOD COUNT 14.6 x10^3/uL (4.8-10.8)
[2018-09-15 06:49] LABS: CREATININE 1.3 mg/dL (0.6-1.2)
--- NOTE | 2018-09-15 08:16 | PROVIDER PROGRESS NOTE ---
Assessment/Plan - Problem List (1) Recurrent UTI Assessment/Plan: Related to chronic Bryant and his poor hygiene. Continue iv Ceftriaxone. A 7-10 day course is planned. (2) Indwelling Bryant catheter present Assessment/Plan: The Bryant was changed after admission to his room, due to opaque urine, with a larger leg bag. (3) Chest pain made worse by breathing Assessment/Plan: The Branch Library Clerk was called to see the patient complaining of chest pain last night. The evaluation resulted in an EKG being ordered (see interpretation below), but the impression was that it was R sided postero-lateral pain from pleurisy, related to the RLL pneumonia. (4) Aspiration pneumonia Assessment/Plan: His oxygen saturation dropped this am, possibly after hydrating, his PNA blossomed. He is on supplemetal O2 now at 2L. Continue iv Unasyn. A 7-10 day course of antibiotics is planned His diet is altered to a pureed diet, also. (5) Ectopic atrial rhythm Assessment/Plan: This atrial dysrhythmia may be related to his pulmonary diagnosis, or his alcohol intake. Telemetry shows that he alternates from NSR to low atrial ectopic focus. As long as the ventricular rate is stable, no other intervention needed. Continue budget accountant. (6) Multi-infarct dementia Qualifiers: Dementia behavioral disturbance: with behavioral disturbance Qualified Code(s): F01.51 - Vascular dementia with behavioral disturbance Assessment/Plan: The patient moans often, and when asked why, he says "I don't know". (7) Diabetes mellitus, insulin dependent (IDDM), uncontrolled Assessment/Plan: A1c shows fair-poor glu control. Continue carb-controlled diet and ss Insulin coverage for glu checks. (8) Anemia Assessment/Plan: Possibly due to hemodilution, but will obtain serum B12, folate, Iron levels and a stool guiac if needed. Replace if low. Monitor CBC daily. (9) Alcohol abuse Assessment/Plan: The RN today reported that the patient described being a "daily beer drinker". Will start a CIWA protocol with prn iv Ativan. (10) Methamphetamine abuse Assessment/Plan: His iv Meth use was reported as twice weekly. No signs of hypersomnolence, as seen in Meth withdrawal. (11) CKD (chronic kidney disease) stage 3, GFR 30-59 ml/min Assessment/Plan: Avoid nephrotoxins. Monitor BMP daily. (12) Hypomagnesemia Assessment/Plan: Replace Mg. Monitor daily for several days. (13) History of CVA (cerebrovascular accident) Assessment/Plan: His diet is altered to a pureed diet, accordingly. - Current Meds Current Meds: Current Medications Generic Name Dose Route Start Last Admin Trade Name Freq PRN Reason Stop Dose Admin Acetaminophen 650 mg 09/14/18 08:14 09/14/18 19:02 Tylenol PO 650 mg Q4HR PRN Administration Pain or Fever > 38C (100.4F) Aspirin 81 mg 09/14/18 09:00 09/14/18 09:42 Ecotrin PO 81 mg DAILY MONTY Administration Doxazosin Mesylate 1 mg 09/14/18 21:00 09/14/18 21:48 Cardura PO 1 mg QPM MONTY Administration Hydromorphone HCl 1 mg 09/14/18 19:56 09/15/18 06:25 Dilaudid Inj Carp IVP 1 mg Q2HR PRN Administration PAIN Ampicillin Sodium/Sulbactam 100 mls @ 200 mls/hr 09/14/18 11:00 09/15/18 06:47 Sodium 1.5 gm/ Sodium Chloride IV Infused Q6HR MONTY Infusion Ceftriaxone Sodium 2 gm/ 100 mls @ 200 mls/hr 09/14/18 12:30 09/14/18 13:19 Sodium Chloride IV Infused DAILY MONTY Infusion Insulin Aspart 1 - 9 unit 09/14/18 21:00 09/14/18 21:47 Novolog SUBQ 7 unit 0800,1200,1700,2100 MONTY Administration Protocol Memantine 5 mg 09/14/18 09:00 09/14/18 21:48 Namenda PO 5 mg BID MONTY Administration Multivitamins 1 tab 09/14/18 09:00 09/14/18 09:42 Theragran PO 1 tab DAILYWM MONTY Administration Polyethylene Glycol 17 gm 09/14/18 09:00 09/14/18 09:42 Miralax PO 17 gm DAILY MONTY Administration Pravastatin Sodium 80 mg 09/14/18 21:00 09/14/18 21:48 Pravachol PO 80 mg QPM MONTY Administration Saccharomyces Boulardii 250 mg 09/14/18 17:00 09/14/18 16:59 Florastor PO 250 mg BIDWM MONTY Administration Sodium Chloride 10 ml 09/14/18 08:05 09/15/18 06:08 Normal Saline Flush 0.9% IVP 10 ml PRN PRN Administration NEEDED PER PROVIDER ORDERS Sodium Chloride 10 ml 09/14/18 09:00 09/14/18 23:49 Normal Saline Flush 0.9% IVP 10 ml 0100,0900,1700 MONTY Administration Tamsulosin HCl 0.4 mg 09/14/18 09:00 09/14/18 09:42 Flomax PO 0.4 mg DAILY MONTY Administration - Lab Result Fish Bone Diagrams: 09/15/18 06:27 09/15/18 06:27 - EKG Results EKG Interpreted Independently: Yes EKG Comparison: Changed from prior EKG EKG Findings: Low atrial ectopic rhythm, early repolarization, poor R wave progression. The low atrial ectopic rhythm is new. - Additional Planning My Orders: My Active Orders 09/14/18 08:05 Sodium Chloride Flush 0.9% [Normal Saline Flush 0.9%] 10 ml IVP PRN PRN 09/14/18 08:06 Activity Orders [RC] Q2HR IO [RC] IOSHIFT Initiate Bowel Care Protocol [RC] .protocol Initiate Line Care Protocol [RC] QSHIFT Initiate Personal Care Protoco [RC] .protocol Oxygen Therapy [RC] Routine Vital Signs [RC] 0800,1600,0000 Code Status [OTHERS] Routine Condition of Patient [OTHERS] Routine DVT Prophylaxis [OTHERS] Routine 09/14/18 08:09 Daily Weight [RC] 0600 IV Insert [RC] .ONCE 09/14/18 08:14 Initiate Line Care Protocol [RC] .protocol Initiate Lung Inflation Protoc [RC] .PROTOCOL Acetaminophen [Tylenol] 650 mg PO Q4HR PRN Prochlorperazine Inj [Compazine Inj] 10 mg IVP Q6HR PRN 09/14/18 08:15 Incentive Spirometry - RT [RC] .TID TAE Carltone and SCDs [RC] QSHIFT 09/14/18 08:16 Social Work Consult [CONS] Routine 09/14/18 08:19 Blood Glucose Checks - Eating [RC] 0800,1200,1700,2100 Initiate Hypoglycemia Protocol [RC] .protocol 09/14/18 08:22 Bryant Discontinuation [RC] ONCE 09/14/18 08:23 Bryant Insertion [RC] QSHIFT 09/14/18 09:00 Aspirin EC [Ecotrin] 81 mg PO DAILY Memantine [Namenda] 5 mg PO BID Multivitamin [Theragran] 1 tab PO DAILYWM Polyethylene Glycol 3350 [Miralax] 17 gm PO DAILY Sodium Chloride Flush 0.9% [Normal Saline Flush 0.9%] 10 ml IVP 0100,0900,1700 Tamsulosin [Flomax] 0.4 mg PO DAILY 09/14/18 09:30 CUL, URINE [RM] Stat 09/14/18 11:00 Ampicillin/Sulbactam [Unasyn] 1.5 gm Sodium Chloride 0.9% Minibag [Normal Saline 0.9% Minibag] 100 ml IV Q6HR 09/14/18 12:30 cefTRIAXone [Rocephin] 2 gm Sodium Chloride 0.9% Minibag [Normal Saline 0.9% Minibag] 100 ml IV DAILY 09/14/18 17:00 Saccharomyces Boulardii [Florastor] 250 mg PO BIDWM 09/14/18 21:00 Doxazosin [Cardura] 1 mg PO QPM Insulin Aspart [NovoLOG] 1 - 9 unit SUBQ 0800,1200,1700,2100 Pravastatin [Pravachol] 80 mg PO QPM 09/14/18 Lunch Dysphagia Puree Diet [DIET] 09/15/18 08:11 CIWA - AR Score Card [RC] PRN 09/15/18 08:12 LORazepam INJ [Ativan Inj (Vial)] 1 mg IVP Q30M PRN 09/15/18 09:00 Docusate Sodium 250Mg Capsule [Colace 250Mg Capsule] 250 - 500 mg PO DAILY Senna [Senokot] 8.6 - 17.2 mg PO DAILY 09/16/18 05:00 BMP - BASIC METABOLIC PANEL [CHEM] DAILYLAB CBC - COMP BLD CT W/AUTO DIFF [HEME] DAILYLAB 09/17/18 05:00 BMP - BASIC METABOLIC PANEL [CHEM] DAILYLAB CBC - COMP BLD CT W/AUTO DIFF [HEME] DAILYLAB Objective Vital Signs: Vital Signs - 24 hr 09/14/18 09/14/18 09/14/18 09:17 11:55 15:55 Temperature 36.5 C 37.0 C 36.9 C Heart Rate Heart Rate [ Brachial] Heart Rate [ 102 H 79 75 Monitoring electrodes] Respiratory 18 18 18 Rate Blood Pressure 107/56 L [Left Brachial artery] Blood Pressure 144/81 H 129/76 [Right Brachial artery] O2 Saturation 92 96 96 09/14/18 09/14/18 09/14/18 16:01 20:00 23:54 Temperature 36.9 C 36.7 C 36.9 C Heart Rate 75 Heart Rate [ 95 Brachial] Heart Rate [ 83 Monitoring electrodes] Respiratory 18 23 22 Rate Blood Pressure [Left Brachial artery] Blood Pressure 142/78 H 147/87 H [Right Brachial artery] O2 Saturation 96 99 92 09/15/18 09/15/18 09/15/18 01:02 02:14 06:00 Temperature 37.1 C Heart Rate Heart Rate [ Brachial] Heart Rate [ 104 H 101 H 93 Monitoring electrodes] Respiratory 28 H 20 22 Rate Blood Pressure [Left Brachial artery] Blood Pressure 127/70 [Right Brachial artery] O2 Saturation 88 L 09/15/18 06:18 Temperature Heart Rate Heart Rate [ Brachial] Heart Rate [ Monitoring electrodes] Respiratory Rate Blood Pressure [Left Brachial artery] Blood Pressure [Right Brachial artery] O2 Saturation 94 Oxygen O2 Source Nasal cannula I&O (Last 24 Hrs): Intake and Output Totals x24h 09/13/18 09/14/18 09/15/18 23:59 23:59 23:59 Intake Total 1000 1040 200 Output Total 2780 400 Balance 1000 -1740 -200 General: Mild distress, Other (Moaning due to overall achiness. Confused.) HEENT: Mucous membr. moist/pink, Other (Disheveled.) Neck: Supple Neuro: Disoriented, Non Focal Cardiovascular: Regular rate, No murmurs Respiratory: No respiratory distress, Breath sounds nml, Other (On O2 supplemental as of today.) Abdomen: Soft, No tenderness, Other (Decreased bowel sounds.) Extremities: No edema - Results Results: Laboratory Results WBC 14.6 x10^3/uL (4.8-10.8) H 09/15/18 06:27 RBC 3.54 10^6/uL (4.70-6.10) L 09/15/18 06:27 Hgb 10.5 g/dL (14.0-18.0) L 09/15/18 06:27 Hct 31.8 % (42.0-52.0) L 09/15/18 06:27 MCV 90.0 fL (80.0-94.0) 09/15/18 06:27 MCH 29.7 pg (27.0-31.0) 09/15/18 06: MCHC 33.0 g/dL (32.0-36.0) 09/15/18 06: RDW 14.2 % (12.0-15.0) 09/15/18 06:27 Plt Count 227 10^3/uL (130-450) 09/15/18 06:27 MPV 8.7 fL (7.4-11.4) 09/15/18 06: Neut # (Auto) 12.4 10^3/uL (1.5-6.6) H 09/15/18 06: Lymph # (Auto) 1.0 10^3/uL (1.5-3.5) L 09/15/18 06: [place] # (Auto) 1.1 10^3/uL (0.0-1.0) H 09/15/18 06:27 Eos # (Auto) 0.0 10^3/uL (0.0-0.7) 09/15/18 06: Baso # (Auto) 0.1 10^3/uL (0.0-0.1) 09/15/18 06: Absolute Nucleated RBC 0.00 x10^3/uL 09/15/18 06: Nucleated RBC % 0.0 /100WBC 09/15/18 06: PT 13.2 secs (9.9-12.6) H 09/14/18 08:47 INR 1.2 (0.8-1.2) 09/14/18 08:47 Sodium 135 mmol/L (135-145) 09/15/18 06:27 Potassium 4.2 mmol/L (3.5-5.0) 09/15/18 06:27 Chloride 101 mmol/L (101-111) 09/15/18 06:27 Carbon Dioxide 26 mmol/L (21-32) 09/15/18 06:27 Anion Gap 8.0 (6-13) 09/15/18 06:27 BUN 21 mg/dL (6-20) H 09/15/18 06:27 Creatinine 1.3 mg/dL (0.6-1.2) H 09/15/18 06:27 Estimated GFR (MDRD) 55 (>89) L 09/15/18 06:27 Glucose 275 mg/dL (70-100) H 09/15/18 06:27 Glycated Hemoglobin 10.0 % (4.6-6.2) H 09/14/18 08:47 Estim Average Glucose 240 (70-100) H 09/14/18 08:47 Calcium 9.0 mg/dL (8.5-10.3) 09/15/18 06:27 Magnesium 1.5 mg/dL (1.7-2.8) L 09/14/18 08:47 Total Bilirubin 0.7 mg/dL (0.2-1.0) 09/14/18 08:47 AST 15 IU/L (10-42) 09/14/18 08:47 ALT 17 IU/L (10-60) 09/14/18 08:47 Alkaline Phosphatase 68 IU/L (42-121) 09/14/18 08:47 Troponin I < 0.04 ng/mL (<0.49) 09/14/18 19:49 Total Protein 7.7 g/dL (6.7-8.2) 09/14/18 08:47 Albumin 3.2 g/dL (3.2-5.5) 09/14/18 08:47 Globulin 4.5 g/dL (2.1-4.2) H 09/14/18 08:47 Albumin/Globulin Ratio 0.7 (1.0-2.2) L 09/14/18 08:47 Lipase 35 U/L (22-51) 09/13/18 21:36 Urine Color YELLOW 09/14/18 09:30 Urine Clarity CLOUDY (CLEAR) 09/14/18 09:30 Urine pH 6.0 PH (5.0-7.5) 09/14/18 09:30 Ur Specific [place] 1.010 (1.002-1.030) 09/14/18 09:30 Urine Protein TRACE mg/dL (NEGATIVE) 09/14/18 09:30 Urine Glucose (UA) 100 mg/dL (NEGATIVE) H 09/14/18 09:30 Urine Ketones NEGATIVE mg/dL (NEGATIVE) 09/14/18 09:30 Urine Occult Blood TRACE-INTA (NEGATIVE) 09/14/18 09:30 Urine Nitrite NEGATIVE (NEGATIVE) 09/14/18 09:30 Urine Bilirubin NEGATIVE (NEGATIVE) 09/14/18 09:30 Urine Urobilinogen 0.2 (NORMAL) E.U./dL (NORMAL) 09/14/18 09:30 Ur Leukocyte Esterase SMALL (NEGATIVE) H 09/14/18 09:30 Urine RBC 0-5 /HPF (0-5) 09/14/18 09:30 Urine WBC 11-25 /HPF (0-3) H 09/14/18 09:30 Ur Squamous Epith Cells FEW Squamous (<= Few) 09/14/18 09:30 Urine Bacteria Many /HPF (None Seen) H 09/14/18 09:30 Urine Yeast PRESENT 09/14/18 09:30 Ur Microscopic Review INDICATED 09/13/18 22:12 Urine Culture Comments INDICATED 09/14/18 09:30 Serum Ketones NEGATIVE (NEGATIVE) 09/13/18 21:36
[2018-09-15] MEDS: MULTIVITAMIN TABLET PO SCH (08:38)
[2018-09-15] MEDS: SENNA 8.6 MG TABLET PO SCH (08:38)
[2018-09-15] MEDS: MEMANTINE 5 MG TABLET PO SCH ×2 (08:38→22:18)
[2018-09-15] MEDS: ASPIRIN EC 81 MG TABLET PO SCH (08:38)
[2018-09-15] MEDS: SACCHAROMYCES BOULARDII 250 MG CAPSULE PO SCH ×2 (08:38→17:30)
[2018-09-15] MEDS: TAMSULOSIN 0.4 MG CAPSULE PO SCH (08:38)
[2018-09-15] MEDS: DOCUSATE SODIUM 250 MG CAPSULE PO SCH (08:38)
[2018-09-15] MEDS: INSULIN ASPART 300 UNIT/3 ML PEN SUBQ SCH ×4 (08:43→22:18)
[2018-09-15] MEDS ORDERED: MULTIVITAMIN 10 ML, FOLIC ACID INJ 1 MG, THIAMINE INJ 100 MG, MAGNESIUM SULFATE 2 GM in... IV ONE ×5 (09:00)
[2018-09-15] MEDS: cefTRIAXone 2 GM in SODIUM CHLORIDE 0.9% MINIBAG 100 ML IV SCH (09:35)
[2018-09-15] MEDS: POLYETHYLENE GLYCOL 3350 17 GM PACKET PO SCH (09:36)
[2018-09-15] MEDS: SODIUM CHLORIDE FLUSH 0.9% 10 ML SYRINGE IVP SCH ×2 (09:36→17:24)
[2018-09-15] MEDS: LORazepam 2 MG/ML VIAL IVP PRN ×4 (11:04→20:52)
[2018-09-15] MEDS: MAGNESIUM OXIDE 400 MG TABLET PO SCH (11:46)
[2018-09-15] MEDS: LIDOCAINE PATCH 5% TOP PRN (17:24)
[2018-09-15] MEDS: DOXAZOSIN 1 MG TABLET PO SCH (22:18)
[2018-09-15] MEDS: PRAVASTATIN 40 MG TABLET PO SCH (22:18)
[2018-09-16] MEDS ORDERED: SODIUM CHLORIDE 0.9% 500 ML IV PRN (00:10)
[2018-09-16] MEDS: AMPICILLIN/SULBACTAM 1.5 GM in SODIUM CHLORIDE 0.9% MINIBAG 100 ML IV SCH ×4 (00:26→18:35)
[2018-09-16] MEDS: SODIUM CHLORIDE FLUSH 0.9% 10 ML SYRINGE IVP SCH ×3 (00:26→17:40)
[2018-09-16] MEDS: LORazepam 2 MG/ML VIAL IVP PRN ×6 (00:40→22:00)
[2018-09-16] MEDS: HYDROmorphone 1 MG/ML CARPUJECT IVP PRN ×6 (00:43→19:28)
[2018-09-16] MEDS: SODIUM CHLORIDE FLUSH 0.9% 10 ML SYRINGE IVP PRN ×4 (02:59→22:02)
[2018-09-16 06:13] LABS: BASOPHILS # (AUTO) 0.1 10^3/uL (0.0-0.1); BASOPHILS % (AUTO) 0.9 %; EOSINOPHILS # (AUTO) 0.2 10^3/uL (0.0-0.7); EOSINOPHILS % (AUTO) 1.8 %; HGB - HEMOGLOBIN 11.3 g/dL (14.0-18.0); LYMPHOCYTES # (AUTO) 1.1 10^3/uL (1.5-3.5); LYMPHOCYTES % (AUTO) 9.8 %; MEAN CORPUSCULAR HEMOGLOBIN 29.7 pg (27.0-31.0); MEAN CORPUSCULAR HGB CONC 32.5 g/dL (32.0-36.0); MEAN CORPUSCULAR VOLUME 91.3 fL (80.0-94.0); MEAN PLATELET VOLUME 9.2 fL (7.4-11.4); MONOCYTES % (AUTO) 8.8 %; NEUTROPHILS % (AUTO) 78.7 %; PLT - PLATELET COUNT 208 10^3/uL (130-450); RED BLOOD COUNT 3.82 10^6/uL (4.70-6.10); RED CELL DISTRIBUTION WIDTH 14.5 % (12.0-15.0); WHITE BLOOD COUNT 11.4 x10^3/uL (4.8-10.8)
[2018-09-16 06:21] LABS: CALCIUM 9.1 mg/dL (8.5-10.3); CREATININE 1.2 mg/dL (0.6-1.2); MAGNESIUM 2.2 mg/dL (1.7-2.8)
[2018-09-16] MEDS: POLYETHYLENE GLYCOL 3350 17 GM PACKET PO SCH (08:31)
[2018-09-16] MEDS: cefTRIAXone 2 GM in SODIUM CHLORIDE 0.9% MINIBAG 100 ML IV SCH (08:31)
[2018-09-16] MEDS: SENNA 8.6 MG TABLET PO SCH (08:33)
[2018-09-16] MEDS: MULTIVITAMIN TABLET PO SCH (08:34)
[2018-09-16] MEDS: ASPIRIN EC 81 MG TABLET PO SCH (08:34)
[2018-09-16] MEDS: SACCHAROMYCES BOULARDII 250 MG CAPSULE PO SCH ×2 (08:34→17:39)
[2018-09-16] MEDS: TAMSULOSIN 0.4 MG CAPSULE PO SCH (08:34)
[2018-09-16] MEDS: MEMANTINE 5 MG TABLET PO SCH ×2 (08:34→21:47)
[2018-09-16] MEDS: THIAMINE 100 MG TABLET PO SCH (08:34)
[2018-09-16] MEDS: MAGNESIUM OXIDE 400 MG TABLET PO SCH (08:34)
[2018-09-16] MEDS: DOCUSATE SODIUM 250 MG CAPSULE PO SCH (08:34)
[2018-09-16] MEDS: INSULIN ASPART 300 UNIT/3 ML PEN SUBQ SCH ×4 (08:36→22:01)
[2018-09-16] MEDS: LIDOCAINE PATCH 5% TOP PRN (09:40)
--- NOTE | 2018-09-16 16:14 | PROVIDER PROGRESS NOTE ---
Assessment/Plan - Problem List (1) Metabolic encephalopathy Assessment/Plan: He continues to exhibit fidgitiness alternating with sleepiness. Continue to treat both infections and gentle hydration. Continue pain management using topical Lidocaine patch. His sister did not come in to have a discussion, last evening I tried to call her and there was no room in her mailbox. (2) Recurrent UTI Assessment/Plan: On iv antibiotics. The Bryant was changed at admission. (3) Indwelling Bryant catheter present Assessment/Plan: As above (4) Aspiration pneumonia Assessment/Plan: He has no SOB, saturating OK. Continue iv Unasyn. Will recheck a CXR in am tomorrow. (5) Ectopic atrial rhythm Assessment/Plan: He is in and out of ectopic atrial rhythm, he does not drop his pulse with this. (6) Multi-infarct dementia Qualifiers: Dementia behavioral disturbance: with behavioral disturbance Qualified Code(s): F01.51 - Vascular dementia with behavioral disturbance Assessment/Plan: Unchanged activity since he has been admitted, but I don't know his baseline. I will discuss with his sister. (7) Diabetes mellitus, insulin dependent (IDDM), uncontrolled Assessment/Plan: Glu are running in 200's, on his carb controlled pureed diet, ss Insulin coverage. (9) Alcohol abuse Assessment/Plan: This was reported to the RN yesterday, therefore concern that his fidgitiness is alcohol withdrawal. A CIWA protocol and prn Ativan is ordered. (10) Methamphetamine abuse Assessment/Plan: Hx of Meth abuse twice a week for > 10 years, per chart. (11) CKD (chronic kidney disease) stage 3, GFR 30-59 ml/min Assessment/Plan: Improving slightly with iv hydration. Follow BMP daily. (12) Hypomagnesemia Assessment/Plan: Replace Mg. Follow Mg daily. (13) History of CVA (cerebrovascular accident) Assessment/Plan: His diet is altered to puree due to dysphagia from stroke, tested at last admission ir as outpatient by Speech Therapy. (14) Chest pain made worse by breathing Assessment/Plan: This specific location of pain has resolved - Current Meds Current Meds: Current Medications Generic Name Dose Route Start Last Admin Trade Name Freq PRN Reason Stop Dose Admin Acetaminophen 650 mg 09/14/18 08:14 09/14/18 19:02 Tylenol PO 650 mg Q4HR PRN Administration Pain or Fever > 38C (100.4F) Aspirin 81 mg 09/14/18 09:00 09/16/18 08:34 Ecotrin PO 81 mg DAILY MONTY Administration Docusate Sodium 250 - 500 mg 09/15/18 09:00 09/16/18 08:34 Colace 250mg Capsule PO 500 mg DAILY MONTY Administration Doxazosin Mesylate 1 mg 09/14/18 21:00 09/15/18 22:18 Cardura PO 1 mg QPM MONTY Administration Hydromorphone HCl 1 mg 09/14/18 19:56 09/16/18 12:16 Dilaudid Inj Carp IVP 1 mg Q2HR PRN Administration PAIN Ampicillin Sodium/Sulbactam 100 mls @ 200 mls/hr 09/14/18 11:00 09/16/18 12:29 Sodium 1.5 gm/ Sodium Chloride IV Infused Q6HR MONTY Infusion Ceftriaxone Sodium 2 gm/ 100 mls @ 200 mls/hr 09/14/18 12:30 09/16/18 09:01 Sodium Chloride IV Infused DAILY MONTY Infusion Insulin Aspart 2 - 10 unit 09/16/18 08:00 09/16/18 12:04 Novolog SUBQ 4 unit 0800,1200,1700,2100 MONTY Administration Protocol Lidocaine 1 patch 09/15/18 16:37 09/16/18 09:40 Lidoderm Patch TOP 1 patch DAILY PRN Administration PAIN Lorazepam 1 mg 09/15/18 08:12 09/16/18 09:39 Ativan Inj (Vial) IVP 1 mg Q30M PRN Administration CIWA >8 Protocol Magnesium Oxide 400 mg 09/15/18 09:00 09/16/18 08:34 Mag Ox PO 400 mg DAILYWM MONTY Administration Memantine 5 mg 09/14/18 09:00 09/16/18 08:34 Namenda PO 5 mg BID MONTY Administration Multivitamins 1 tab 09/14/18 09:00 09/16/18 08:34 Theragran PO 1 tab DAILYWM MONTY Administration Polyethylene Glycol 17 gm 09/14/18 09:00 09/16/18 08:31 Miralax PO 17 gm DAILY MONTY Administration Pravastatin Sodium 80 mg 09/14/18 21:00 09/15/18 22:18 Pravachol PO 80 mg QPM MONTY Administration Saccharomyces Boulardii 250 mg 09/14/18 17:00 09/16/18 08:34 Florastor PO 250 mg BIDWM MONTY Administration Senna 8.6 - 17.2 mg 09/15/18 09:00 09/16/18 08:33 Senokot PO 17.2 mg DAILY MONTY Administration Sodium Chloride 10 ml 09/14/18 08:05 09/16/18 03:38 Normal Saline Flush 0.9% IVP 10 ml PRN PRN Administration NEEDED PER PROVIDER ORDERS Sodium Chloride 10 ml 09/14/18 09:00 09/16/18 08:34 Normal Saline Flush 0.9% IVP Not Given 0100,0900,1700 MONTY Tamsulosin HCl 0.4 mg 09/14/18 09:00 09/16/18 08:34 Flomax PO 0.4 mg DAILY MONTY Administration Thiamine HCl 100 mg 09/16/18 09:00 09/16/18 08:34 Vitamin B-1 PO 100 mg DAILY MONTY Administration - Lab Result Fish Bone Diagrams: 09/16/18 05:53 09/16/18 05:53 - Additional Planning My Orders: My Active Orders 09/15/18 16:37 Lidocaine Patch 5% [Lidoderm Patch] 1 patch TOP DAILY PRN 09/16/18 Evaluate and Treat OT [OT] Routine 09/16/18 00:10 Sodium Chloride 0.9% [Normal Saline 0.9%] 500 ml IV Q24H 09/16/18 08:00 Insulin Aspart [NovoLOG] 2 - 10 unit SUBQ 0800,1200,1700,2100 09/16/18 09:00 Thiamine [Vitamin B-1] 100 mg PO DAILY 09/17/18 05:00 BMP - BASIC METABOLIC PANEL [CHEM] DAILYLAB CBC - COMP BLD CT W/AUTO DIFF [HEME] DAILYLAB MAGNESIUM [CHEM] DAILYLAB 09/18/18 05:00 MAGNESIUM [CHEM] DAILYLAB Subjective - Subjective Patient Reports: Resting Comfortably Nursing Reports: Other (Moaning in the afternoon, then answers it hurts "all over") Objective Vital Signs: Vital Signs - 24 hr 09/15/18 09/15/18 09/15/18 18:10 19:52 22:45 Temperature 36.6 C Heart Rate [ 82 Brachial] Respiratory 20 24 16 Rate Blood Pressure [Right Brachial artery] O2 Saturation 96 09/15/18 09/16/18 09/16/18 23:58 00:45 00:54 Temperature 36.7 C Heart Rate [ 87 Brachial] Respiratory 20 Rate Blood Pressure 112/65 [Right Brachial artery] O2 Saturation 95 88 L 95 09/16/18 08:00 Temperature 36.6 C Heart Rate [ 82 Brachial] Respiratory 16 Rate Blood Pressure 116/74 [Right Brachial artery] O2 Saturation 93 Oxygen O2 Source Nasal cannula I&O (Last 24 Hrs): Intake and Output Totals x24h 09/14/18 09/15/18 09/16/18 23:59 23:59 23:59 Intake Total 2845 009 7841.2 Output Total 2780 1950 1550 Balance -1740 -1195 330.2 General: Mild distress, Other (Moaning) HEENT: Mucous membr. moist/pink Neck: Supple Neuro: Disoriented, Other (Moves all extremities) Cardiovascular: Regular rate, No murmurs Respiratory: No respiratory distress, Breath sounds nml, Other (Diminished) Abdomen: Soft Genitourinary: Other (Bryant in place) Extremities: No edema, Other (Multiple eccynoses) - Results Results: Laboratory Results WBC 11.4 x10^3/uL (4.8-10.8) H 09/16/18 05:53 RBC 3.82 10^6/uL (4.70-6.10) L 09/16/18 05:53 Hgb 11.3 g/dL (14.0-18.0) L 09/16/18 05:53 Hct 34.9 % (42.0-52.0) L 09/16/18 05:53 MCV 91.3 fL (80.0-94.0) 09/16/18 05:53 MCH 29.7 pg (27.0-31.0) 09/16/18 05:53 MCHC 32.5 g/dL (32.0-36.0) 09/16/18 05:53 RDW 14.5 % (12.0-15.0) 09/16/18 05:53 Plt Count 208 10^3/uL (130-450) 09/16/18 05:53 MPV 9.2 fL (7.4-11.4) 09/16/18 05:53 Neut # (Auto) 9.0 10^3/uL (1.5-6.6) H 09/16/18 05:53 Lymph # (Auto) 1.1 10^3/uL (1.5-3.5) L 09/16/18 05:53 [place] # (Auto) 1.0 10^3/uL (0.0-1.0) 09/16/18 05:53 Eos # (Auto) 0.2 10^3/uL (0.0-0.7) 09/16/18 05:53 Baso # (Auto) 0.1 10^3/uL (0.0-0.1) 09/16/18 05:53 Absolute Nucleated RBC 0.01 x10^3/uL 09/16/18 05:53 Nucleated RBC % 0.0 /100WBC 09/16/18 05:53 PT 13.2 secs (9.9-12.6) H 09/14/18 08:47 INR 1.2 (0.8-1.2) 09/14/18 08:47 Sodium 137 mmol/L (135-145) 09/16/18 05:53 Potassium 3.8 mmol/L (3.5-5.0) 09/16/18 05:53 Chloride 103 mmol/L (101-111) 09/16/18 05:53 Carbon Dioxide 24 mmol/L (21-32) 09/16/18 05:53 Anion Gap 10.0 (6-13) 09/16/18 05:53 BUN 25 mg/dL (6-20) H 09/16/18 05:53 Creatinine 1.2 mg/dL (0.6-1.2) 09/16/18 05:53 Estimated GFR (MDRD) 61 (>89) L 09/16/18 05:53 Glucose 237 mg/dL (70-100) H 09/16/18 05:53 Glycated Hemoglobin 10.0 % (4.6-6.2) H 09/14/18 08:47 Estim Average Glucose 240 (70-100) H 09/14/18 08:47 Calcium 9.1 mg/dL (8.5-10.3) 09/16/18 05:53 Magnesium 2.2 mg/dL (1.7-2.8) 09/16/18 05:53 Total Bilirubin 0.7 mg/dL (0.2-1.0) 09/14/18 08:47 AST 15 IU/L (10-42) 09/14/18 08:47 ALT 17 IU/L (10-60) 09/14/18 08:47 Alkaline Phosphatase 68 IU/L (42-121) 09/14/18 08:47 Troponin I < 0.04 ng/mL (<0.49) 09/14/18 19:49 Total Protein 7.7 g/dL (6.7-8.2) 09/14/18 08:47 Albumin 3.2 g/dL (3.2-5.5) 09/14/18 08:47 Globulin 4.5 g/dL (2.1-4.2) H 09/14/18 08:47 Albumin/Globulin Ratio 0.7 (1.0-2.2) L 09/14/18 08:47 Lipase 35 U/L (22-51) 09/13/18 21:36 Urine Color YELLOW 09/14/18 09:30 Urine Clarity CLOUDY (CLEAR) 09/14/18 09:30 Urine pH 6.0 PH (5.0-7.5) 09/14/18 09:30 Ur Specific [place] 1.010 (1.002-1.030) 09/14/18 09:30 Urine Protein TRACE mg/dL (NEGATIVE) 09/14/18 09:30 Urine Glucose (UA) 100 mg/dL (NEGATIVE) H 09/14/18 09:30 Urine Ketones NEGATIVE mg/dL (NEGATIVE) 09/14/18 09:30 Urine Occult Blood TRACE-INTA (NEGATIVE) 09/14/18 09:30 Urine Nitrite NEGATIVE (NEGATIVE) 09/14/18 09:30 Urine Bilirubin NEGATIVE (NEGATIVE) 09/14/18 09:30 Urine Urobilinogen 0.2 (NORMAL) E.U./dL (NORMAL) 09/14/18 09:30 Ur Leukocyte Esterase SMALL (NEGATIVE) H 09/14/18 09:30 Urine RBC 0-5 /HPF (0-5) 09/14/18 09:30 Urine WBC 11-25 /HPF (0-3) H 09/14/18 09:30 Ur Squamous Epith Cells FEW Squamous (<= Few) 09/14/18 09:30 Urine Bacteria Many /HPF (None Seen) H 09/14/18 09:30 Urine Yeast PRESENT 09/14/18 09:30 Ur Microscopic Review INDICATED 09/13/18 22:12 Urine Culture Comments INDICATED 09/14/18 09:30 Serum Ketones NEGATIVE (NEGATIVE) 09/13/18 21:36
[2018-09-16] MEDS: PRAVASTATIN 40 MG TABLET PO SCH (21:48)
[2018-09-16] MEDS: DOXAZOSIN 1 MG TABLET PO SCH (21:48)
--- NOTE | 2018-09-16 21:51 | XRAY Report ---
Reason: SOB, desats, is grunting and moaning Procedure Date: 09/16/2018 Accession Number: [id number] / [id number] Procedure: XR - Chest 1 View X-Ray CPT Code: 86341 FULL RESULT: EXAM: CHEST RADIOGRAPHY EXAM DATE: 09/16/2018 07:55 PM. CLINICAL HISTORY: SOB, desats, is grunting and moaning. COMPARISON: CHEST 2 VIEW 09/14/2018 8:49 AM. TECHNIQUE: 1 view. FINDINGS: Lungs/Pleura: There is new right basilar consolidation. Left lung appears clear. There is no pneumothorax. Mediastinum: Heart size within normal limits. There is mild to moderate atherosclerotic calcification and tortuosity. Other: None. IMPRESSION: 1. New right basilar consolidation suspicious for pneumonia. RADIA
[2018-09-17] MEDS: AMPICILLIN/SULBACTAM 1.5 GM in SODIUM CHLORIDE 0.9% MINIBAG 100 ML IV SCH ×4 (01:09→18:40)
[2018-09-17] MEDS: HYDROmorphone 1 MG/ML CARPUJECT IVP PRN ×5 (01:10→21:19)
[2018-09-17] MEDS: SODIUM CHLORIDE FLUSH 0.9% 10 ML SYRINGE IVP SCH ×3 (01:10→17:37)
[2018-09-17] MEDS: LORazepam 2 MG/ML VIAL IVP PRN ×7 (01:43→16:34)
[2018-09-17] MEDS: SODIUM CHLORIDE FLUSH 0.9% 10 ML SYRINGE IVP PRN ×4 (01:43→21:19)
[2018-09-17 05:41] LABS: BASOPHILS % (AUTO) 0.5 %; EOSINOPHILS # (AUTO) 0.4 10^3/uL (0.0-0.7); EOSINOPHILS % (AUTO) 4.1 %; HGB - HEMOGLOBIN 11.3 g/dL (14.0-18.0); LYMPHOCYTES # (AUTO) 1.1 10^3/uL (1.5-3.5); MEAN CORPUSCULAR HEMOGLOBIN 29.5 pg (27.0-31.0); MEAN CORPUSCULAR HGB CONC 32.6 g/dL (32.0-36.0); MEAN CORPUSCULAR VOLUME 90.6 fL (80.0-94.0); MEAN PLATELET VOLUME 8.7 fL (7.4-11.4); MONOCYTES # (AUTO) 0.8 10^3/uL (0.0-1.0); NEUTROPHILS # (AUTO) 7.4 10^3/uL (1.5-6.6); NEUTROPHILS % (AUTO) 76.4 %; PLT - PLATELET COUNT 260 10^3/uL (130-450); RED BLOOD COUNT 3.82 10^6/uL (4.70-6.10); RED CELL DISTRIBUTION WIDTH 14.4 % (12.0-15.0); WHITE BLOOD COUNT 9.7 x10^3/uL (4.8-10.8)
[2018-09-17 05:47] LABS: CALCIUM 9.2 mg/dL (8.5-10.3); CREATININE 1.1 mg/dL (0.6-1.2)
[2018-09-17 05:57] LABS: % IRON SATURATION 10 % (20-50); IRON 16 ug/dL (45-182); TOTAL IRON BINDING CAPACITY 160 ug/dL (250-450); TRANSFERRIN 114 mg/dL (180-329)
[2018-09-17] MEDS: SACCHAROMYCES BOULARDII 250 MG CAPSULE PO SCH ×2 (08:28→17:37)
[2018-09-17] MEDS: SENNA 8.6 MG TABLET PO SCH (08:28)
[2018-09-17] MEDS: TAMSULOSIN 0.4 MG CAPSULE PO SCH (08:28)
[2018-09-17] MEDS: THIAMINE 100 MG TABLET PO SCH (08:28)
[2018-09-17] MEDS: DOCUSATE SODIUM 250 MG CAPSULE PO SCH (08:28)
[2018-09-17] MEDS: MEMANTINE 5 MG TABLET PO SCH ×2 (08:28→21:18)
[2018-09-17] MEDS: MAGNESIUM OXIDE 400 MG TABLET PO SCH (08:29)
[2018-09-17] MEDS: MULTIVITAMIN TABLET PO SCH (08:29)
[2018-09-17] MEDS: ASPIRIN EC 81 MG TABLET PO SCH (08:30)
[2018-09-17] MEDS: POLYETHYLENE GLYCOL 3350 17 GM PACKET PO SCH (08:30)
[2018-09-17] MEDS: INSULIN ASPART 300 UNIT/3 ML PEN SUBQ SCH ×4 (08:32→21:33)
[2018-09-17] MEDS: cefTRIAXone 2 GM in SODIUM CHLORIDE 0.9% MINIBAG 100 ML IV SCH (09:05)
[2018-09-17] MEDS: guaiFENesin 600 MG TABLET PO SCH ×2 (11:30→21:17)
[2018-09-17] MEDS: D5NS W/20 MEQ KCL 1,000 ML IV SCH (13:33)
--- NOTE | 2018-09-17 16:08 | PROVIDER PROGRESS NOTE ---
Assessment/Plan - Problem List (1) Metabolic encephalopathy Assessment/Plan: He remains confused, moaning and cannot explain what hurts or why he moans. I don't know if this is his baseline mental status from multi-infarct dementia or if this is worse from his infection. I tried calling the sister to determine his usual function, I've called twice today and get ringing, then it stops ringing and no answer. Two days ago when I called her number, it went to [email or web address] and said the mailbox is full. (2) Recurrent UTI Assessment/Plan: Continue iv antibiotics, Bryant, I's and O's. (3) Indwelling Bryant catheter present Assessment/Plan: He never went to the Urology appointment that was advised after the last admission for hydronephrosis and obstructive uropathy 3 weeks ago. The sister was supposed to take him. SW to help the sister. (4) Aspiration pneumonia Assessment/Plan: His O2 sat was decreased, needed supplemental O2 and did cooperate and wear his ventimask intermittently. Today's CXR showed a worsening RLL infiltrate. He is on Unasyn for aspiration PNA, WBC is improving. I will order a new swallowing eval, and diet and liquid texture may need to be adjusted further. (5) Ectopic atrial rhythm Assessment/Plan: Stable VS, despite being in and out of NSR and ectopic atrial rhythm at a stable HR. Will stop telemetry, due to his dementia and picks at things (for example he takes off his hospital gown and prefers to be naked, laying under a thin and delicate bedsheet only). (6) Multi-infarct dementia Qualifiers: Dementia behavioral disturbance: with behavioral disturbance Qualified Code(s): F01.51 - Vascular dementia with behavioral disturbance Assessment/Plan: As in #1 His sister, Lesly Sun, is his DPOA. She has spoken to SW, but I have been unable to reach her. (7) Diabetes mellitus, insulin dependent (IDDM), uncontrolled Assessment/Plan: Continue carb controlled diet and ss Insulin. Will increase his iv rate from tko to 60 cc/hr and add D5 to NS, since his po intake is minimal for the last 24 hours. (8) Anemia Qualifiers: Anemia type: iron deficiency Assessment/Plan: Will start po daily Iron replacement. Follow CBC daily. (9) Alcohol abuse Assessment/Plan: Continue CIWA protocol and prn Ativan. I would like to get more details about his alcohol habit from his sister, when we arre in contact. (10) Methamphetamine abuse Assessment/Plan: This has been his habit for 10 years, twice a week. It is due to this, that he was not accepted at any SNF, from the last recent admission, 3 weeks ago. Seeing his present poor level of functioning, it is hard to believe he could inject anything, Insulin or Meth. (11) CKD (chronic kidney disease) stage 3, GFR 30-59 ml/min Assessment/Plan: Abnormal but improving creat from 1.3 to 1.1 with gentle hydration. (12) Hypomagnesemia Assessment/Plan: Related to his poor intake and alcohol habit probably. Replace Mg. Monitor Mg intermittently. (13) History of CVA (cerebrovascular accident) Assessment/Plan: See # 4 and # 6 (14) Back pain Assessment/Plan: This patient moans nearly all day, when he is awake and not sleeping. When asked why he moans he says "I don't know". When asked straight out, where is his pain, he answers "Everywhere'. When he is in a seated position in his recliner chair, he appears to be having back pain. When he is in bed, he prefers to lay flat and not bent at the waist. Therefore, a Lidocaine patch has been ordered to put over his mid-to-low back. Perhaps the sister will have some insight into his pain and reason for moaning. - Current Meds Current Meds: Current Medications Generic Name Dose Route Start Last Admin Trade Name Marylou PRN Reason Stop Dose Admin Acetaminophen 650 mg 09/14/18 08:14 09/14/18 19:02 Tylenol PO 650 mg Q4HR PRN Administration Pain or Fever > 38C (100.4F) Aspirin 81 mg 09/14/18 09:00 09/17/18 08:30 Ecotrin PO 81 mg DAILY MONTY Administration Docusate Sodium 250 - 500 mg 09/15/18 09:00 09/17/18 08:28 Colace 250mg Capsule PO 250 mg DAILY MONTY Administration Doxazosin Mesylate 1 mg 09/14/18 21:00 09/16/18 21:48 Cardura PO 1 mg QPM MONTY Administration Guaifenesin 600 mg 09/17/18 10:00 09/17/18 11:30 Mucinex PO 600 mg BID MONTY Administration Hydromorphone HCl 1 mg 09/14/18 19:56 09/17/18 14:04 Dilaudid Inj Carp IVP 1 mg Q2HR PRN Administration PAIN Ampicillin Sodium/Sulbactam 100 mls @ 200 mls/hr 09/14/18 11:00 09/17/18 12:55 Sodium 1.5 gm/ Sodium Chloride IV Infused Q6HR MONTY Infusion Ceftriaxone Sodium 2 gm/ 100 mls @ 200 mls/hr 09/14/18 12:30 09/17/18 09:35 Sodium Chloride IV Infused DAILY MONTY Infusion Potassium Chloride/Dextrose/Sod Cl 1,000 mls @ 60 mls/hr 09/17/18 13:00 09/17/18 13:33 IV 60 mls/hr .[id number] MONTY Administration Insulin Aspart 3 - 11 unit 09/17/18 08:00 09/17/18 11:32 Novolog SUBQ 7 unit 0800,1200,1700,2100 MONTY Administration Protocol Lidocaine 1 patch 09/15/18 16:37 09/16/18 09:40 Lidoderm Patch TOP 1 patch DAILY PRN Administration PAIN Lorazepam 1 mg 09/15/18 08:12 09/17/18 13:33 Ativan Inj (Vial) IVP 1 mg Q30M PRN Administration CIWA >8 Protocol Magnesium Oxide 400 mg 09/15/18 09:00 09/17/18 08:29 Mag Ox PO 400 mg DAILYWM MONTY Administration Memantine 5 mg 09/14/18 09:00 09/17/18 08:28 Namenda PO 5 mg BID MONTY Administration Multivitamins 1 tab 09/14/18 09:00 09/17/18 08:29 Theragran PO 1 tab DAILYWM MONTY Administration Polyethylene Glycol 17 gm 09/14/18 09:00 09/17/18 08:30 Miralax PO 17 gm DAILY MONTY Administration Pravastatin Sodium 80 mg 09/14/18 21:00 09/16/18 21:48 Pravachol PO 80 mg QPM MONTY Administration Saccharomyces Boulardii 250 mg 09/14/18 17:00 09/17/18 08:28 Florastor PO 250 mg BIDWM MONTY Administration Senna 8.6 - 17.2 mg 09/15/18 09:00 09/17/18 08:28 Senokot PO 8.6 mg DAILY MONTY Administration Sodium Chloride 10 ml 09/14/18 08:05 09/17/18 11:30 Normal Saline Flush 0.9% IVP 10 ml PRN PRN Administration NEEDED PER PROVIDER ORDERS Sodium Chloride 10 ml 09/14/18 09:00 09/17/18 08:26 Normal Saline Flush 0.9% IVP 10 ml 0100,0900,1700 MONTY Administration Tamsulosin HCl 0.4 mg 09/14/18 09:00 09/17/18 08:28 Flomax PO 0.4 mg DAILY MONTY Administration Thiamine HCl 100 mg 09/16/18 09:00 09/17/18 08:28 Vitamin B-1 PO 100 mg DAILY MONTY Administration - Lab Result Fish Bone Diagrams: 09/17/18 05:15 09/17/18 05:15 - Additional Planning My Orders: My Active Orders 09/17/18 Clinical Swallow Evaluation [ST] Routine 09/17/18 08:00 Insulin Aspart [NovoLOG] 3 - 11 unit SUBQ 0800,1200,1700,2100 09/17/18 09:16 Acapella (Flutter Valve Device [RC] .TID 09/17/18 10:00 guaiFENesin [Mucinex] 600 mg PO BID 09/17/18 13:00 D5ns W/20 Meq KCl 1,000 ml IV 60 mls/hr 09/18/18 05:00 MAGNESIUM [CHEM] DAILYLAB Objective Vital Signs: Vital Signs - 24 hr 09/16/18 09/17/18 09/17/18 17:46 00:00 07:25 Temperature 37.1 C 36.6 C Heart Rate [ Activity] Heart Rate [ 79 94 73 Brachial] Respiratory 16 20 20 Rate Blood Pressure [Activity] Blood Pressure 142/87 H 148/79 H [Right Brachial artery] O2 Saturation 96 98 97 O2 Saturation [ With Activity] 09/17/18 11:39 Temperature Heart Rate [ 97 Activity] Heart Rate [ Brachial] Respiratory Rate Blood Pressure 143/78 H [Activity] Blood Pressure [Right Brachial artery] O2 Saturation O2 Saturation [ 97 With Activity] Oxygen O2 Source [With Activity] mask with 4L O2 Source Oxymask I&O (Last 24 Hrs): Intake and Output Totals x24h 09/15/18 09/16/18 09/17/18 23:59 23:59 23:59 Intake Total 755 1980.2 700 Output Total 1950 1950 1100 Balance -1195 30.2 -400 General: Other (Awake, answerrs 1-2 word answers, moans, rolls around in bed, has to be fed, keeps his eyes closed.) HEENT: Mucous membr. moist/pink Neck: Supple Neuro: Disoriented Cardiovascular: No murmurs Respiratory: No respiratory distress, Breath sounds nml, Other (Increased AP diameter.) Abdomen: Soft Genitourinary: Other (Bryant in place.) Extremities: No edema - Results Results: Laboratory Results WBC 9.7 x10^3/uL (4.8-10.8) 09/17/18 05:15 RBC 3.82 10^6/uL (4.70-6.10) L 09/17/18 05:15 Hgb 11.3 g/dL (14.0-18.0) L 09/17/18 05:15 Hct 34.6 % (42.0-52.0) L 09/17/18 05:15 MCV 90.6 fL (80.0-94.0) 09/17/18 05:15 MCH 29.5 pg (27.0-31.0) 09/17/18 05:15 MCHC 32.6 g/dL (32.0-36.0) 09/17/18 05:15 RDW 14.4 % (12.0-15.0) 09/17/18 05:15 Plt Count 260 10^3/uL (130-450) 09/17/18 05:15 MPV 8.7 fL (7.4-11.4) 09/17/18 05:15 Neut # (Auto) 7.4 10^3/uL (1.5-6.6) H 09/17/18 05:15 Lymph # (Auto) 1.1 10^3/uL (1.5-3.5) L 09/17/18 05:15 Woodruff # (Auto) 0.8 10^3/uL (0.0-1.0) 09/17/18 05:15 Eos # (Auto) 0.4 10^3/uL (0.0-0.7) 09/17/18 05:15 Baso # (Auto) 0.0 10^3/uL (0.0-0.1) 09/17/18 05:15 Absolute Nucleated RBC 0.00 x10^3/uL 09/17/18 05:15 Nucleated RBC % 0.0 /100WBC 09/17/18 05:15 PT 13.2 secs (9.9-12.6) H 09/14/18 08:47 INR 1.2 (0.8-1.2) 09/14/18 08:47 Sodium 144 mmol/L (135-145) 09/17/18 05:15 Potassium 3.9 mmol/L (3.5-5.0) 09/17/18 05:15 Chloride 106 mmol/L (101-111) 09/17/18 05:15 Carbon Dioxide 26 mmol/L (21-32) 09/17/18 05:15 Anion Gap 12.0 (6-13) 09/17/18 05:15 BUN 23 mg/dL (6-20) H 09/17/18 05:15 Creatinine 1.1 mg/dL (0.6-1.2) 09/17/18 05:15 Estimated GFR (MDRD) 67 (>89) L 09/17/18 05:15 Glucose 217 mg/dL (70-100) H 09/17/18 05:15 Glycated Hemoglobin 10.0 % (4.6-6.2) H 09/14/18 08:47 Estim Average Glucose 240 (70-100) H 09/14/18 08:47 Calcium 9.2 mg/dL (8.5-10.3) 09/17/18 05:15 Magnesium 2.0 mg/dL (1.7-2.8) 09/17/18 05:15 Iron 16 ug/dL (45-182) L 09/17/18 05:15 TIBC 160 ug/dL (250-450) L 09/17/18 05:15 % Saturation 10 % (20-50) L 09/17/18 05:15 Transferrin 114 mg/dL (180-329) L 09/17/18 05:15 Total Bilirubin 0.7 mg/dL (0.2-1.0) 09/14/18 08:47 AST 15 IU/L (10-42) 09/14/18 08:47 ALT 17 IU/L (10-60) 09/14/18 08:47 Alkaline Phosphatase 68 IU/L (42-121) 09/14/18 08:47 Troponin I < 0.04 ng/mL (<0.49) 09/14/18 19:49 Total Protein 7.7 g/dL (6.7-8.2) 09/14/18 08:47 Albumin 3.2 g/dL (3.2-5.5) 09/14/18 08:47 Globulin 4.5 g/dL (2.1-4.2) H 09/14/18 08:47 Albumin/Globulin Ratio 0.7 (1.0-2.2) L 09/14/18 08:47 Lipase 35 U/L (22-51) 09/13/18 21:36 Vitamin B12 1110 pg/mL (180-914) H 09/17/18 05:15 Folate 21.00 ng/mL (5.90 - >24.8) 09/17/18 05:15 Urine Color YELLOW 09/14/18 09:30 Urine Clarity CLOUDY (CLEAR) 09/14/18 09:30 Urine pH 6.0 PH (5.0-7.5) 09/14/18 09:30 Ur Specific [place] 1.010 (1.002-1.030) 09/14/18 09:30 Urine Protein TRACE mg/dL (NEGATIVE) 09/14/18 09:30 Urine Glucose (UA) 100 mg/dL (NEGATIVE) H 09/14/18 09:30 Urine Ketones NEGATIVE mg/dL (NEGATIVE) 09/14/18 09:30 Urine Occult Blood TRACE-INTA (NEGATIVE) 09/14/18 09:30 Urine Nitrite NEGATIVE (NEGATIVE) 09/14/18 09:30 Urine Bilirubin NEGATIVE (NEGATIVE) 09/14/18 09:30 Urine Urobilinogen 0.2 (NORMAL) E.U./dL (NORMAL) 09/14/18 09:30 Ur Leukocyte Esterase SMALL (NEGATIVE) H 09/14/18 09:30 Urine RBC 0-5 /HPF (0-5) 09/14/18 09:30 Urine WBC 11-25 /HPF (0-3) H 09/14/18 09:30 Ur Squamous Epith Cells FEW Squamous (<= Few) 09/14/18 09:30 Urine Bacteria Many /HPF (None Seen) H 09/14/18 09:30 Urine Yeast PRESENT 09/14/18 09:30 Ur Microscopic Review INDICATED 09/13/18 22:12 Urine Culture Comments INDICATED 09/14/18 09:30 Serum Ketones NEGATIVE (NEGATIVE) 09/13/18 21:36
[2018-09-17] MEDS: FERROUS GLUCONATE 324 MG TABLET PO SCH (18:43)
[2018-09-17] MEDS ORDERED: SODIUM CHLORIDE FLUSH 0.9% 10 ML SYRINGE ONE (18:56)
[2018-09-17] MEDS: DOXAZOSIN 1 MG TABLET PO SCH (21:18)
[2018-09-17] MEDS: PRAVASTATIN 40 MG TABLET PO SCH (21:18)
[2018-09-18] MEDS: AMPICILLIN/SULBACTAM 1.5 GM in SODIUM CHLORIDE 0.9% MINIBAG 100 ML IV SCH ×5 (00:16→23:58)
[2018-09-18] MEDS: SODIUM CHLORIDE FLUSH 0.9% 10 ML SYRINGE IVP SCH ×3 (00:19→16:17)
[2018-09-18] MEDS: HYDROmorphone 1 MG/ML CARPUJECT IVP PRN ×5 (01:07→13:00)
[2018-09-18] MEDS: SODIUM CHLORIDE FLUSH 0.9% 10 ML SYRINGE IVP PRN ×4 (04:34→13:00)
[2018-09-18] MEDS: D5NS W/20 MEQ KCL 1,000 ML IV SCH (06:05)
[2018-09-18] MEDS ORDERED: hydrALAZINE INJ 20 MG/ML VIAL IVP PRN (08:08)
[2018-09-18] MEDS: MAGNESIUM OXIDE 400 MG TABLET PO SCH (08:31)
[2018-09-18] MEDS: SENNA 8.6 MG TABLET PO SCH ×2 (08:32→21:19)
[2018-09-18] MEDS: guaiFENesin 600 MG TABLET PO SCH ×2 (08:32→21:20)
[2018-09-18] MEDS: DOCUSATE SODIUM 250 MG CAPSULE PO SCH (08:32)
[2018-09-18] MEDS: ASPIRIN EC 81 MG TABLET PO SCH (08:32)
[2018-09-18] MEDS: SACCHAROMYCES BOULARDII 250 MG CAPSULE PO SCH ×2 (08:32→17:10)
[2018-09-18] MEDS: TAMSULOSIN 0.4 MG CAPSULE PO SCH (08:32)
[2018-09-18] MEDS: MEMANTINE 5 MG TABLET PO SCH ×2 (08:32→21:21)
[2018-09-18] MEDS: THIAMINE 100 MG TABLET PO SCH (08:32)
[2018-09-18] MEDS: FERROUS GLUCONATE 324 MG TABLET PO SCH (08:32)
[2018-09-18] MEDS: MULTIVITAMIN TABLET PO SCH (08:32)
[2018-09-18] MEDS: POLYETHYLENE GLYCOL 3350 17 GM PACKET PO SCH (08:33)
[2018-09-18] MEDS: INSULIN ASPART 300 UNIT/3 ML PEN SUBQ SCH ×4 (08:34→20:30)
[2018-09-18 09:04] LABS: MUDS CUTOFF CONCENTRATIONS CUTOFF CONC BELOW:
[2018-09-18 09:20] LABS: AMPHETAMINE SCREEN,URINE NEGATIVE (NEGATIVE); BENZODIAZEPINES SCREEN, URINE POSITIVE (NEGATIVE); COCAINE SCREEN URINE NEGATIVE (NEGATIVE); METHADONE SCREEN, URINE NEGATIVE (NEGATIVE); METHAMPHETAMINES SCREEN, URINE NEGATIVE (NEGATIVE); OPIATE SCREEN, URINE POSITIVE (NEGATIVE); OXYCODONE SCREEN, URINE NEGATIVE (NEGATIVE); PROPOXYPHENE SCREEN, URINE NEGATIVE (NEGATIVE); TRICYCLIC ANTIDEPRESSANT,URINE NEGATIVE (NEGATIVE)
[2018-09-18] MEDS: cefTRIAXone 2 GM in SODIUM CHLORIDE 0.9% MINIBAG 100 ML IV SCH (09:23)
[2018-09-18] MEDS: LORazepam 2 MG/ML VIAL IVP PRN ×2 (10:59→14:17)
[2018-09-18] MEDS ORDERED: FERRIC GLUCONATE 125 MG in SODIUM CHLORIDE 0.9% 100ML 100 ML IV SCH (11:00)
[2018-09-18] MEDS: LIDOCAINE PATCH 5% TOP PRN (11:41)
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
[2018-09-18] MEDS ORDERED: GABAPENTIN 100 MG CAPSULE PO SCH (16:00)
[2018-09-18] MEDS: DEXTROSE 5% IV SCH (16:16)
[2018-09-18] MEDS: THIAMINE IV SCH (16:16)
[2018-09-18] MEDS ORDERED: ASPIRIN 300 MG SUPP PR PRN (17:59)
[2018-09-18] MEDS ORDERED: BISACODYL 10 MG SUPP PR PRN (17:59)
[2018-09-18] MEDS ORDERED: LIDOCAINE 2% URO-JET 5 ML SYRINGE UR PRN (18:52)
[2018-09-18] MEDS ORDERED: SALINE ENEMA 133 ML BOTTLE RC SCH (19:00)
--- NOTE | 2018-09-18 19:08 | CT Report ---
Reason: Encephalopathy with multi-infarct dementia Procedure Date: 09/18/2018 Accession Number: [id number] / [id number] Procedure: CT - Head W/O Stroke Protocol CPT Code: FULL RESULT: EXAM: CT HEAD EXAM DATE: 09/18/2018 06:37 PM. CLINICAL HISTORY: Encephalopathy with multi-infarct dementia. Stroke protocol. COMPARISON: HEAD W/O 09/03/2014 11:36 AM. TECHNIQUE: Multiaxial CT images were obtained from the foramen magnum to the vertex. Reformats: Sagittal and coronal. IV contrast: None. In accordance with CT protocol optimization, one or more of the following dose reduction techniques were utilized for this exam: automated exposure control, adjustment of mA and/or KV based on patient size, or use of iterative reconstructive technique. FINDINGS: Parenchyma: No intraparenchymal hemorrhage. Inferior right cerebellar encephalomalacia from prior infarction. Old basal ganglia lacunar infarcts. No evidence of mass, midline shift, or CT findings of acute infarction. Finnegan-white differentiation is distinct. Stable chronic microangiopathic white matter changes are evident. Extraaxial Spaces: Normal for age. No subdural or epidural collections identified. Ventricles: The ventricles and cortical sulci are prominent, consistent with age-related tissue loss. Sinuses and orbits: Imaged paranasal sinuses, orbits, and mastoids show no significant abnormality. Bones: No evidence of fracture or calvarial defect. Other: None. IMPRESSION: Stable age-related cortical atrophic changes and old inferior right cerebellar infarction without evidence of acute intracranial abnormality. RADIA The critical test notification system was initiated by Dr. Pradip Long at 07:07 PM on 09/18/2018. ADDENDUM: 09/18/18 19:16 The above critical test findings were discussed with ISMAEL Schofield by Dr. Pradip Long at 07:16 PM on 09/18/2018.
[2018-09-18] MEDS: LACTULOSE 10 GM/15 ML BOTTLE PR SCH (19:40)
--- NOTE | 2018-09-18 20:09 | CT Report ---
Reason: SBO Procedure Date: 09/18/2018 Accession Number: [id number] / [id number] Procedure: CT - Abdomen/Pelvis WO CPT Code: FULL RESULT: EXAM: CT ABDOMEN AND PELVIS EXAM DATE: 09/18/2018 06:50 PM. CLINICAL HISTORY: Small bowel obstruction. COMPARISONS: ABDOMEN/PELVIS W/O 09/18/2018 6:37 PM ABDOMEN/PELVIS W/ 09/13/2018 10:36 PM. TECHNIQUE: Routine helical CT imaging was performed through the abdomen and pelvis. IV contrast: No. Enteric contrast: No. Reconstructions: Coronal and sagittal. In accordance with CT protocol optimization, one or more of the following dose reduction techniques were utilized for this exam: automated exposure control, adjustment of mA and/or KV based on patient size, or use of iterative reconstructive technique. FINDINGS: Lung Bases: Small bilateral pleural effusions, right greater than left with associated atelectatic changes involving both lower lobes. Liver: The unenhanced liver is unremarkable. Gallbladder/Bile Ducts: Unremarkable. Spleen: Normal. Pancreas: Normal. Adrenal Glands: Normal. Kidneys: Moderate left and mild right hydroureteronephrosis. There are no obstructing stones. Peritoneal Cavity/Bowel: Large volume of stool throughout the ascending and transverse colon. No small bowel obstruction. No free air or fluid collections. No evidence of diverticulitis. The appendix is well visualized and normal. Pelvic Organs: The urinary bladder is distended. Bryant balloon catheter noted within the bladder. Vasculature: Atherosclerotic aorta without evidence of aneurysm. Bones: No significant abnormality. Other: None. IMPRESSION: 1. Small bilateral pleural effusions, right greater than left. 2. Large ascending and transverse colon stool burden suggesting constipation. 3. No evidence of small bowel obstruction. 4. Moderate left and mild right hydroureteronephrosis without obstructing stone or obvious mass. Etiology of collecting system dilatation uncertain; however, may be due to bladder obstruction. RADIA
[2018-09-18] MEDS ORDERED: INSULIN GLARGINE 300 UNIT/3 ML PEN SUBQ SCH (21:00)
[2018-09-18] MEDS: PRAVASTATIN 40 MG TABLET PO SCH (21:20)
[2018-09-18] MEDS: DOXAZOSIN 1 MG TABLET PO SCH (21:21)
[2018-09-18] MEDS ORDERED: SODIUM CHLORIDE 0.9% 1,000 ML IV SCH (23:00)
[2018-09-19] MEDS: DEXTROSE 5% IV SCH ×2 (00:40→08:21)
[2018-09-19] MEDS: THIAMINE IV SCH ×2 (00:40→08:21)
[2018-09-19] MEDS: SODIUM CHLORIDE FLUSH 0.9% 10 ML SYRINGE IVP SCH ×3 (00:48→09:22)
[2018-09-19] MEDS: SENNA 8.6 MG TABLET PO SCH ×5 (02:46→14:08)
[2018-09-19] MEDS: LORazepam 2 MG/ML VIAL IVP PRN (04:57)
[2018-09-19 05:15] LABS: BASOPHILS # (AUTO) 0.1 10^3/uL (0.0-0.1); BASOPHILS % (AUTO) 1.1 %; EOSINOPHILS # (AUTO) 0.2 10^3/uL (0.0-0.7); EOSINOPHILS % (AUTO) 1.6 %; HGB - HEMOGLOBIN 10.7 g/dL (14.0-18.0); LYMPHOCYTES # (AUTO) 1.3 10^3/uL (1.5-3.5); LYMPHOCYTES % (AUTO) 12.3 %; MEAN CORPUSCULAR HEMOGLOBIN 29.4 pg (27.0-31.0); MEAN CORPUSCULAR HGB CONC 32.8 g/dL (32.0-36.0); MEAN CORPUSCULAR VOLUME 89.6 fL (80.0-94.0); MEAN PLATELET VOLUME 8.6 fL (7.4-11.4); MONOCYTES # (AUTO) 0.9 10^3/uL (0.0-1.0); MONOCYTES % (AUTO) 7.9 %; NEUTROPHILS # (AUTO) 8.4 10^3/uL (1.5-6.6); NEUTROPHILS % (AUTO) 77.1 %; PLT - PLATELET COUNT 296 10^3/uL (130-450); RED BLOOD COUNT 3.65 10^6/uL (4.70-6.10); WHITE BLOOD COUNT 10.8 x10^3/uL (4.8-10.8)
[2018-09-19 05:27] LABS: ALBUMIN 2.3 g/dL (3.2-5.5); ALBUMIN/GLOBULIN RATIO 0.5 (1.0-2.2); BILIRUBIN,TOTAL 0.8 mg/dL (0.2-1.0); CALCIUM 8.8 mg/dL (8.5-10.3); CREATININE 1.2 mg/dL (0.6-1.2); TOTAL PROTEIN 6.7 g/dL (6.7-8.2)
[2018-09-19] MEDS: AMPICILLIN/SULBACTAM 1.5 GM in SODIUM CHLORIDE 0.9% MINIBAG 100 ML IV SCH ×3 (06:21→17:04)
--- NOTE | 2018-09-19 07:12 | MISCELLANEOUS PROVIDER NOTE ---
Miscellaneous Provider Note - - Note: Subjective: Patient had multiple BM's last night after enemas, suppositories, and prune juice administered with messaging stomach. Imaging studies completed. FC repositioned and with crusted meatus observed. Objective: Vital signs are hemodynamically stable, afebrile General: No acute resp distress. Apparent and ongoing neurocognitive deficits HEENT: NCAT, pupils reactive, no buccal lesions Neck: No JVD no bruits no lymphadenopathy CV/lungs: RRR, S1-S2 within normal limits, no murmurs gallops clicks or rubs. Decreased breath sounds with mild expiratory bibasilar rhonchi with no wheezing minimal scattered rales, no increased work of breath or retractions. Abdomen: Soft nontender nondistended positive bowel sounds all quadrants no HSM next para extremities/skin: No edema clubbing or cyanosis /rectal: Indwelling Bryant catheter present with no scrotal edema. Extremities/skin: No edema clubbing or cyanosis. 2+ pulses dorsalis pedis bilaterally. Neuro: Poor historian with cranial nerves II to XII grossly intact. Underlying neurocognitive deficits present. No psychomotor retardation. Sensory and motor conserved. DTRs are bilateral symmetric. Labs: Reviewed Imaging studies: Reviewed Assessment/plan: (1) Multi-factorial cause for encephalopathy Assessment/Plan: Patient presented with UTI/Hypoxemia with aspiration PNA on admission as main contributing causes superimposed on severe constipation with moderate right hydronephrosis and mild left hydronephrosis w/o obstructing stones. No evidence of ETOH intoxication or withdrawals, Ativan was subsequently discontinued. No new neuro deficits despite apparent and ongoing neurocognitive deficits with prior post-CVA residual hemiparesis, and OP dyshagia, dysarthria (chronic). (2) Recurrent UTI with chronic cystitis Assessment/Plan: Ucx with polymicrobial urine cx >100K, yeast growing. Continue iv antibiotics Along with the addition of IV Diflucan for likely yeast Mayi cystitis with underlying obstructive uropathy/BPH with hx of indwelling Bryant that may have been obstructed and crusted over, I's and O's. Patient May benefit from Hiprex for chronic cystitis and frequent UTIs which will provide urinary acidification, However this is not listed on formulary here at hospital. (3) Indwelling Bryant catheter present Assessment/Plan: Patient did not make it to his urology appointment prior to admission. Patient has bilateral hydronephrosis more on the right which is moderate as opposed to the left with no nephrolithiasis or obstruction/stones observed. Chronic indwelling Bryant catheter places patient at susceptibilities for nidus of infection such as Mayi and in this instance with cystitis. IV Diflucan will be initiated. Pyridium crushed 3 times daily for additional analgesia. Will avoid narcotics due to severe constipation. (4) Aspiration pneumonia Assessment/Plan: Patient continues on nebs, IV Unasyn as well as pulmonary toileting and aspiration precautions. Patient is needed supplemental O2 and did cooperate and wear his ventimask intermittently. Component of patient's existing oral pharyngeal dysphagia with prior history of aspiration evidenced as prior CVA. Arcenio rodriguez continued support by ST. Patient was noted to have aspiration of nectar liquids. (5) Diabetes mellitus, insulin dependent (IDDM), uncontrolled Assessment/Plan: Continue carb controlled diet and ss Insulin. Lantus to continue for basal coverage, uptitrate prn. Due to patient's inability to eat properly due to aspiration and probably underlying oropharyngeal dysphagia, will defer off artificial nutrition as patient has no artificial nutrition such as PPN or TPN on POLST. (6) Multi-infarct dementia Qualifiers: Dementia behavioral disturbance: with behavioral disturbance Qualified Code(s): F01.51 - Vascular dementia with behavioral disturbance Assessment/Plan: Lesly Sun is patient's DPOA. Updated on status. CT head was negative on 09/18/18. We will continue with medical management. Behavioral disturbances may be attributable to noncompliance and outpatient failures. We will continue with Namenda 5 mg p.o. twice daily crushed with applesauce. Secondary preventative treatment with aspirin for infarcts. Lipitor to continue as crushed for prior history of strokes. (7) Anemia; Stable Qualifiers: Anemia type: iron deficiency Assessment/Plan: Ferrlecit 125 mg IV x1. Follow CBC daily. 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 medications as well as food. DPOA to discuss possible palliative or quality of life type diet. (9) Severe constipation seen on CT abdomen pelvis. Placed on bowel care protocol, had 6 BM's meatball size overnight. Continue with massaging and other therapies. (10) Methamphetamine abuse Assessment/Plan: NO meth seen on UDS> opiates/benzos seen. This has been his habit for 10 years, twice a week. It is due to this, that he was not accepted at any SNF, from the last recent admission, 3 weeks ago. (11) CKD (chronic kidney disease) stage 3, GFR 30-59 ml/min secondary to DM- nephropathy and obstructive uropathy Assessment/Plan: baseline cr 0.8-1.5. Currently in range. Avoid nephrotoxic agents. IVF's to perfuse kidneys. (12) History of CVA (cerebrovascular accident) Assessment/Plan: Due to OP-dysphagia/dysarthria and on ASA [place]. Patient has multi-infarct ischemic CVA history with complications. Complications with oropharyngeal dysphasia and some residual deficits also noted on prior admission. Patient has multi-infarct dementia as well. We will continue with secondary prevention modalities however oral ingestion of medications will be an issue. CODE STATUS: Patient is DNR with a POLST to show no artificial nutrition
[2018-09-19] MEDS ORDERED: FERROUS SULFATE 325 MG TABLET PO SCH (08:00)
[2018-09-19] MEDS: SACCHAROMYCES BOULARDII 250 MG CAPSULE PO SCH ×2 (08:19→16:54)
[2018-09-19] MEDS: DOCUSATE SODIUM 250 MG CAPSULE PO SCH (08:20)
[2018-09-19] MEDS: POLYETHYLENE GLYCOL 3350 17 GM PACKET PO SCH (08:20)
[2018-09-19] MEDS: LIDOCAINE PATCH 5% TOP PRN (08:20)
[2018-09-19] MEDS: TAMSULOSIN 0.4 MG CAPSULE PO SCH (08:20)
[2018-09-19] MEDS: MEMANTINE 5 MG TABLET PO SCH ×2 (08:20→21:00)
[2018-09-19] MEDS: guaiFENesin 600 MG TABLET PO SCH (08:20)
[2018-09-19] MEDS: LACTULOSE 10 GM/15 ML BOTTLE PR SCH (08:24)
[2018-09-19] MEDS: INSULIN ASPART 300 UNIT/3 ML PEN SUBQ SCH ×4 (08:25→21:06)
[2018-09-19] MEDS ORDERED: MAGNESIUM SULFATE IV SCH (09:00)
[2018-09-19] MEDS ORDERED: MULTIVITAMIN IV SCH ×2 (09:00)
[2018-09-19] MEDS ORDERED: INSULIN GLARGINE 300 UNIT/3 ML PEN SUBQ SCH (09:00)
[2018-09-19] MEDS ORDERED: THIAMINE IV SCH (09:00)
[2018-09-19] MEDS ORDERED: LACTULOSE 10 GM/15 ML BOTTLE PR SCH (09:00)
[2018-09-19] MEDS ORDERED: [UNRECOGNIZED DRUG - OTHER] IV SCH (09:00)
[2018-09-19] MEDS ORDERED: [UNRECOGNIZED DRUG - OTHER] IV SCH (09:00)
[2018-09-19] MEDS ORDERED: FOLIC ACID IV SCH ×2 (09:00)
[2018-09-19] MEDS: FLUCONAZOLE 200 MG/100 ML 100 ML IV SCH (09:22)
[2018-09-19] MEDS: ACETAMINOPHEN 1,000 MG/100 ML 100 ML IV PRN (10:28)
[2018-09-19] MEDS: DEXTROSE 5%-LACTATED RINGERS 1,000 ML IV SCH ×2 (10:29→21:15)
[2018-09-19] MEDS: PHENAZOPYRIDINE 100 MG TABLET PO SCH ×3 (10:40→21:01)
[2018-09-19] MEDS: SERTRALINE 25 MG TABLET PO SCH (10:40)
[2018-09-19] MEDS: MULTIVITAMIN TABLET PO SCH (10:40)
[2018-09-19] MEDS: ASPIRIN 325 MG TABLET PO SCH (10:40)
[2018-09-19] MEDS: ZINC OXIDE 20% OINT 28.35 GM TUBE TOP PRN (16:57)
--- NOTE | 2018-09-19 18:31 | CONSULTATION NOTE ---
Palliative Care Consultation - Referral Referring Provider: Major Schofield MD Time of Visit: 9601-2229 Referral setting: Hospitalized patient Referral Reason: Multi-infarct dementia/dyphagia/FTT - Information Sources Records reviewed: RN notes reviewed, Previous records reviewed History/Review of Systems obtained from: Family (spoke at length to sister Lesly on phone), Caregiver (clinical staff) Exam limitations: Clinical condition (patient orientated to self; lethargic) - History of Present Illness Brief History of Present Illness: This is a very complicated 63-year-old gentleman who presents to [facility] 09/14 with encephalopathy, recurrent UTI, and aspiration pneumonia. It is unclear what has led to these events, though medical records and together parts of the puzzle, patient has done fairly poorly since his last hospitalization 08/23 to 8. He was having difficulties with dyshagia at that point in time, and was to be on aspiration precautions and modified diet with thickened fluids, patient has been eating and drinking as he is pleased. In review of home health RN notes, patient was having difficulty with adherence to his medications, was not taking his blood sugars, was getting weaker. He had a ED visit on 09/01 with dizzyness and dehydration. Unfortunately RN had not admitted until 09/04. Patient was to followed up with urology regarding his last admit which was for sepsis secondary UTI, with hydronephrosis, BPH, metabolic encephalopathy and acute renal failure requiring placement of lara. Both times he has been admitted with uncontrolled diabetes mellitus. It is unclear if patient has been compliant with any of his diabetic regimen. Patient has had poor health secondary long-term struggles with methamphetamine abuse, alcoholism, and history of depression. He is always had poor decision-making around his health issues, and has lived in a very difficult social situation, has been supported financially and with some oversight from his sister Lesly as patient has al lowed. Situation exacerbated overall when patient had a CVA about 1 year ago, with residual right hand and arm weakness, and worsening of his dementia and swallowing problems.. Unfortunately over the last 3 weeks he is continued to deteriorate quite rapidly, is unclear if his dysphagia is exacerbated by his ongoing decline, current infection, or possibly recurrent stroke. Today he presents with questioning just oriented to place and time, is lethargic. Was unclear why he was at [facility], or what brought him here. Does not present is able to verbalize any kind of historical questions, does intermittently moan, and does have signs and symptoms of pain and discomfort does appear to be mostly related to his back and was relieved with repositioning. Patient has been evaluated by speech therapy, it is difficulty with his lethargy and ability to follow cues but quite clear he is not going to be able to meet his nutritional or fluid needs at this point in time. Patient asked for some water during her visit, was given thickened water, told me it tasted like "vomit". Though positioned upright did continue to cough. Patient unable to present any meaningful information and our conversation, nor able to express any worries or concerns. Patient does not present with medical decisi on-making capacity, able to weigh any benefit or burden are able to appreciate the seriousness of his condition and the implications of his current swallowing problems. Medical/Surgical History - Past Medical History Cardiovascular: reports: Hypertension, High cholesterol Respiratory: reports: Pneumonia Neuro: CVA Endocrine/Autoimmune: reports: Type 2 diabetes GI: reports: None : reports: Benign prostate hypertrophy, Retention, Chronic bladder infection, Renal insuffiency, Indwelling catheter Psych: reports: Depression, Anxiety Musculoskeletal: reports: Fatigue, Chronic back pain Derm: reports: None MRSA Hx?: No Other Past Medical History: history of methamphetamine abuse and medical noncompliance Social History - Living Situation Living arrangement: At home Support System: Patient lives in a trailer, set up by his sister Lesly and financially providing support. Patient has multiple friends who also are homeless and use/abuse drugs and alcohol. There is certainly question regarding patient being taken advantage of, and APS referral in progress. Family History - Family History Family History: Mother: , Father: , Sister: Alive and Well (has son and daughter in [place]; but estranged), Brother: , Other family: Alive and Well Medications/Allergies - Medications Active Medication List: Active Medications Aspirin (Jairon) 325 mg PO DAILYWM [facility] Last Admin: 09/19/18 10:40 Dose: 325 mg Bisacodyl (Dulcolax Supp) 10 mg MS DAILY PRN PRN Reason: Constipation Docusate Sodium (Colace 250mg Capsule) 250 - 500 mg PO DAILY [facility] Last Admin: 09/19/18 08:20 Dose: 500 mg Doxazosin Mesylate (Cardura) 1 mg PO QPM [facility] Ferrous Sulfate (Feosol) 325 mg PO DAILYWM [facility] Hydralazine HCl (Apresoline Inj) 10 mg IVP Q4HR PRN PRN Reason: SBP>160 Last Admin: 09/18/18 11:45 Dose: 10 mg Ampicillin Sodium/Sulbactam (Sodium 1.5 gm/ Sodium Chloride) 100 mls @ 200 mls/hr IV Q6HR [facility] Last Admin: 09/19/18 17:04 Dose: 200 mls/hr Acetaminophen (Ofirmev) 100 mls @ 400 mls/hr IV Q6HR PRN PRN Reason: PAIN Last Infusion: 09/19/18 10:49 Dose: Infused Fluconazole (Diflucan 200 Mg/100 Ml) 100 mls @ 100 mls/hr IV DAILY [facility] Last Infusion: 09/19/18 10:28 Dose: Infused Dextrose/Lactated Ringer's (D5lr) 1,000 mls @ 100 mls/hr IV .Q10H [facility] Last Admin: 09/19/18 10:29 Dose: 100 mls/hr Insulin Aspart (Novolog) 3 - 11 unit SUBQ 0800,1200,1700,2100 [facility]; Protocol Last Admin: 09/19/18 16:54 Dose: 9 unit Insulin Glargine (Lantus Solostar) 10 unit SUBQ BID [facility] Last Admin: 09/19/18 08:25 Dose: 10 unit Lactulose (Lactulose) 60 gm MS DAILY [facility] Last Admin: 09/19/18 08:24 Dose: 60 gm Lidocaine (Lidoderm Patch) 1 patch TOP DAILY PRN PRN Reason: PAIN Last Admin: 09/19/18 08:20 Dose: 1 patch Lidocaine HCl (Xylocaine Uro-Jet 2%) 2.5 ml UR Q6H PRN PRN Reason: PAIN Lorazepam (Ativan Inj (Vial)) 2 mg IVP Q2H PRN PRN Reason: Agitation Last Admin: 09/19/18 04:57 Dose: 2 mg Memantine (Namenda) 5 mg PO BID [facility] Multi-Ingredient Ointment (Zinc Oxide) 1 applic TOP PRN PRN PRN Reason: Skin Care Stop: 09/25/18 20:39 Last Admin: 09/19/18 16:57 Dose: 1 applic Multivitamins (Theragran) 1 tab PO DAILYWM [facility] Last Admin: 09/19/18 10:40 Dose: 1 tab Phenazopyridine HCl (Pyridium) 100 mg PO TID [facility] Last Admin: 09/19/18 14:08 Dose: 100 mg Polyethylene Glycol (Miralax) 17 gm PO DAILY [facility] Last Admin: 09/19/18 08:20 Dose: 17 gm Pravastatin Sodium (Pravachol) 80 mg PO QPM [facility] Prochlorperazine Edisylate (Compazine Inj) 10 mg IVP Q6HR PRN PRN Reason: Nausea / Vomiting Saccharomyces Boulardii (Florastor) 250 mg PO BIDWM [facility] Last Admin: 09/19/18 16:54 Dose: 250 mg Senna (Senokot) 8.6 - 17.2 mg PO DAILY [facility] Last Admin: 09/19/18 08:19 Dose: 17.2 mg Sertraline HCl (Zoloft) 12.5 mg PO DAILY [facility] Last Admin: 09/19/18 10:40 Dose: 12.5 mg Sodium Chloride (Normal Saline Flush 0.9%) 10 ml IVP PRN PRN PRN Reason: NEEDED PER PROVIDER ORDERS Last Admin: 09/18/18 13:00 Dose: 10 ml Sodium Chloride (Normal Saline Flush 0.9%) 10 ml IVP 0100,0900,1700 [facility] Last Admin: 09/19/18 09:22 Dose: 10 ml Tamsulosin HCl (Flomax) 0.4 mg PO DAILY [facility] Aspirin [Aspir 81] 81 mg PO DAILY 11/17/12 - Allergies Allergies/Adverse Reactions: Allergies Allergy/AdvReac Type Severity Reaction Status Date / Time No Known Drug Allergies Allergy Verified 09/13/18 21:26 Review of Systems - Constitutional Constitutional: reports: Fatigue - Ears, Nose & Throat Ears, Nose & Throat: reports: Dry mouth - Cardiovascular Cardiovascular: reports: Decr. exercise tolerance - Gastrointestinal Gastrointestinal: reports: Constipation (09/18 hard BMs) - Genitourinary Genitourinary: reports: Other (lara catheter) - Musculoskeletal Musculoskeletal: reports: Back pain, Stiffness, Limited range of motion, Muscle weakness, Transfer issues (max assist with transfer) - Integumentary Integumentary: reports: Dryness - Neurological Neurological: reports: Memory problems (worsening over last 3 weeks) - Psychiatric Psychiatric: reports: Depression, Anxiety, Delusions, Behavior disturbances - Endocrine Endocrine: reports: Diabetes type 2 - Hematologic/Lymphatic Hematologic/Lymphatic: reports: Anemia, Recurrent infections Physical Exam - Vital Signs Vital Signs: Vital Signs x48h Temp Pulse Resp BP Pulse Ox 09/19/18 15:28 36.2 C L 77 16 135/74 H 94 - Physical Exam General Appearance: positive: Moderate distress, Lethargic Eyes Bilateral: positive: Other (patient kept eyes closed most of visit) ENT: positive: Dry mucous membranes Neck: positive: No JVD, Trachea midline Cardiovascular: positive: Regular rate & rhythm Respiratory: positive: No respiratory distress, Diminished throughout Abdomen: positive: Abnml bowel sounds (hyperactive BT), Tenderness, Guarding Skin: positive: Pallor, Dryness Extremities: positive: No pedal edema Neurologic/Psychiatric: positive: Disoriented to person, Disoriented to place, Disoriented to time, Weakness, Slurred/abnml speech, Depressed mood/affect, Flat affect Palliative Care - POLST Patient has POLST: Yes POLST Status: DNR, Selective Treatment Pain: Comment (patient "I hurt all over"; unable to localize pain; moaning; repositioned with some relief) Constipation: Yes, Unmanaged Performance Status: Sister reports patient used to be actually fairly fastidious about his personal hygiene, this is not been the case since he is returned back from his hospitalization in August. He has been able to walk previously with a cane, reports he has been much more significantly weaker, difficulty with shuffling gait, and concern for falls. Patient this point in time is bedbound, needs cueing and lift for transfers into the chair. - Palliative Care Discussion: Extensive conversation with Sister Lesly Sun who is his DPOAE [phone]. Lesly has been providing him support and oversight, this is her last living sibling and will be fifth family member who has when his time comes. He has long-term had difficulty with his history of drug and alcohol abuse. She had been trying to assist him with med compliance, calling him twice a day, but has been very concerned about the situation, and has been always willing to step back and let him speak for himself. Does admit that patient is no longer really able to do this for himself, and has noticed an acute deterioration over these last 3 weeks. Reports he is profoundly depressed, he is estranged from his son and daughter, does have "friends", but no one to really provide ongoing supportive care. We did discuss the severity of his illness, that though his white count is coming down, he is not improving dramatically. His swallowing and dysphagia have pushed us to a conversation regarding goals of care. She does feel quite positive about her accomplishments last admit, with conversations regarding the POLST, with a DNA R, and does believe that he did understand in the context of that conversation, she reports she has tried to have conversations with him around end of life, but reflects on his ability to be in denial, and more recently much more delusional. Does note he has had increased difficulty tracking things, difficulty with his medications, and is seeing his health deteriorate as well. She has been expecting his ongoing decline, and have put forth the question regarding his inability to support himself nutritionally, regarding transitioning to comfort measures. We did discuss what this may look like, which includes stopping fluids, stopping antibiotics, Allowing patient for comfort feeding, to eat and drink recognizing it would not be enough to sustain him, as well as most likely will continue to aspirate. Transition plan would include looking at support of hospice on discharge. We did discuss even if patient does recover some, does not appear he is going to again be able to support himself nutritionally, most likely to aspirate again, he has deteriorated even more so functionally, and will be back in the same place as far as making decisions moving forward. She did express she would rather he with comfort measures and with supportive care for dignified than in the context of his current situation at home most likely alone or traumatically. Patient is going to need placement, unless he deteriorates quickly and has a in the hospital. She would like to have a conversation with her daughter who is a nurse, and is fond of her uncle, his ex-, and to see if his son Rui would like to come visit. She feels most likely everyone would be in alignment with this goal, but would like to have the conversation. We did discuss in the context of decision making, that we could meet tomorrow at 1430 with a family conference with both the hospitalist and myself, [employer], she is concerned about his "friends" coming and visiting him in the hospital, and would like to know if there is some way to limit this. Will check with nursing supervisor electronics assembly. Results - Lab Results Lab results reviewed: Yes Fish Bones: 09/19/18 04:55 09/19/18 04:55 Lab and Imaging Results: Lab Results x24hrs 09/19/18 09/19/18 09/19/18 Range/Units 16:41 11:59 07:31 WBC (4.8-10.8) x10^3/uL RBC (4.70-6.10) 10^6/uL Hgb (14.0-18.0) g/dL Hct (42.0-52.0) % MCV (80.0-94.0) fL MCH (27.0-31.0) pg MCHC (32.0-36.0) g/dL RDW (12.0-15.0) % Plt Count (130-450) 10^3/uL MPV (7.4-11.4) fL Neut # (Auto) (1.5-6.6) 10^3/uL Lymph # (Auto) (1.5-3.5) 10^3/uL [place] # (Auto) (0.0-1.0) 10^3/uL Eos # (Auto) (0.0-0.7) 10^3/uL Baso # (Auto) (0.0-0.1) 10^3/uL Absolute Nucleated RBC x10^3/uL Nucleated RBC % /100WBC Sodium (135-145) mmol/L Potassium (3.5-5.0) mmol/L Chloride (101-111) mmol/L Carbon Dioxide (21-32) mmol/L Anion Gap (6-13) BUN (6-20) mg/dL Creatinine (0.6-1.2) mg/dL Estimated GFR (MDRD) (>89) Glucose (70-100) mg/dL POC Whole Bld Glucose 314 H 277 H 261 H (70 - 100) mg/dL Calcium (8.5-10.3) mg/dL Total Bilirubin (0.2-1.0) mg/dL AST (10-42) IU/L ALT (10-60) IU/L Alkaline Phosphatase (42-121) IU/L Total Protein (6.7-8.2) g/dL Albumin (3.2-5.5) g/dL Globulin (2.1-4.2) g/dL Albumin/Globulin Ratio (1.0-2.2) 09/19/18 09/19/18 09/18/18 Range/Units 04:55 04:55 20:18 WBC 10.8 (4.8-10.8) x10^3/uL RBC 3.65 L (4.70-6.10) 10^6/uL Hgb 10.7 L (14.0-18.0) g/dL Hct 32.7 L (42.0-52.0) % MCV 89.6 (80.0-94.0) fL MCH 29.4 (27.0-31.0) pg MCHC 32.8 (32.0-36.0) g/dL RDW 15.0 (12.0-15.0) % Plt Count 296 (130-450) 10^3/uL MPV 8.6 (7.4-11.4) fL Neut # (Auto) 8.4 H (1.5-6.6) 10^3/uL Lymph # (Auto) 1.3 L (1.5-3.5) 10^3/uL [place] # (Auto) 0.9 (0.0-1.0) 10^3/uL Eos # (Auto) 0.2 (0.0-0.7) 10^3/uL Baso # (Auto) 0.1 (0.0-0.1) 10^3/uL Absolute Nucleated RBC 0.01 x10^3/uL Nucleated RBC % 0.1 /100WBC Sodium 146 H (135-145) mmol/L Potassium 3.6 (3.5-5.0) mmol/L Chloride 109 (101-111) mmol/L Carbon Dioxide 25 (21-32) mmol/L Anion Gap 12.0 (6-13) BUN 18 (6-20) mg/dL Creatinine 1.2 (0.6-1.2) mg/dL Estimated GFR (MDRD) 61 L (>89) Glucose 287 H (70-100) mg/dL POC Whole Bld Glucose 266 H (70 - 100) mg/dL Calcium 8.8 (8.5-10.3) mg/dL Total Bilirubin 0.8 (0.2-1.0) mg/dL AST 27 (10-42) IU/L ALT 25 (10-60) IU/L Alkaline Phosphatase 103 (42-121) IU/L Total Protein 6.7 (6.7-8.2) g/dL Albumin 2.3 L (3.2-5.5) g/dL Globulin 4.4 H (2.1-4.2) g/dL Albumin/Globulin Ratio 0.5 L (1.0-2.2) Impression and Recommendations - Palliative Care Impression: This is an unfortunate 63-year-old gentleman, who presents with failure to thrive, ongoing functional decline, cognitive decline, now with severe and worsened dysphagia, unable currently to support himself nutritionally. Review of goals with the DPOA Lesly sister, concern expressed regarding prolonging suffering, discussion included transitioning to comfort measures. Palliative care to assist with defining goals of care, and transition plans. Recommendations/Counseling Done: 1. Dysphagia, this is multifactorial in origin. Patient does present with encephalopathy, lethargy, concern for possible recent infarct. Patient though at this point, is choking even on thickened liquids, has been noncompliant in the past with his diet changes, and would not be able to support himself nutrit ionally without a PEG tube. Given his level of agitation, most likely would pull out any temporary measures as such as an NG tube. Long discussion with sister regarding comfort feeding, and transition to comfort care, will await family conference tomorrow for final discussion. 2. Encephalopathy. Patient does appear still quite confused, difficult to engage in conversation, does not present with decision-making capacity. 3. Failure to thrive. Patient has had ongoing significant deterioration of his health, this is been compounded by his social situation, medical nonadherence, and multitude of medical problems that have been poorly controlled long-term. This is made more complex by his ongoing substance abuse problems. Would recommend patient be placed, patient unable to safely meet his care needs, depending on decisions and goals, would need to be placed for end-of-life care as well. 4. Advanced care planning. Patient does have a NERY ST as DNAR, is really unable to participate in weighing the decisions around the severity of his illness, goals of care, but his prognosis is quite poor even if he were to minimally stabilize, he would not return to previous level of functioning. Would remain at high risk for recurrent infections, and aspiration pneumonia, and does not have a supportive environment to meet increased care needs. Sister will need to assist with goals of care decisions, is going to consult with other family members, plan for family meeting with team tomorrow 1430. Time Spent: 90 minutes with greater than 50% of this done in counseling and coordination of care with team. Specifically with Lesly Sun regarding goals of care, as patient does not present with decision-making capacity in the context of his ongoing deterioration.
[2018-09-19] MEDS: DOXAZOSIN 1 MG TABLET PO SCH (21:00)
[2018-09-19] MEDS: PRAVASTATIN 40 MG TABLET PO SCH (21:01)
[2018-09-19] MEDS: INSULIN GLARGINE 300 UNIT/3 ML PEN SUBQ SCH (21:06)
[2018-09-20] MEDS: AMPICILLIN/SULBACTAM 1.5 GM in SODIUM CHLORIDE 0.9% MINIBAG 100 ML IV SCH ×4 (00:27→19:20)
[2018-09-20] MEDS: LORazepam 2 MG/ML VIAL IVP PRN (00:30)
[2018-09-20] MEDS: SODIUM CHLORIDE FLUSH 0.9% 10 ML SYRINGE IVP SCH ×3 (01:05→19:23)
[2018-09-20] MEDS: ACETAMINOPHEN 1,000 MG/100 ML 100 ML IV PRN ×2 (04:24→21:46)
[2018-09-20 05:03] LABS: BASOPHILS # (AUTO) 0.1 10^3/uL (0.0-0.1); BASOPHILS % (AUTO) 0.7 %; EOSINOPHILS # (AUTO) 0.4 10^3/uL (0.0-0.7); EOSINOPHILS % (AUTO) 4.2 %; HGB - HEMOGLOBIN 10.2 g/dL (14.0-18.0); LYMPHOCYTES # (AUTO) 1.6 10^3/uL (1.5-3.5); LYMPHOCYTES % (AUTO) 16.1 %; MEAN CORPUSCULAR HEMOGLOBIN 30.1 pg (27.0-31.0); MEAN CORPUSCULAR HGB CONC 33.5 g/dL (32.0-36.0); MEAN CORPUSCULAR VOLUME 89.9 fL (80.0-94.0); MEAN PLATELET VOLUME 8.8 fL (7.4-11.4); MONOCYTES # (AUTO) 0.7 10^3/uL (0.0-1.0); MONOCYTES % (AUTO) 6.8 %; NEUTROPHILS # (AUTO) 7.2 10^3/uL (1.5-6.6); NEUTROPHILS % (AUTO) 72.2 %; PLT - PLATELET COUNT 276 10^3/uL (130-450); RED CELL DISTRIBUTION WIDTH 14.7 % (12.0-15.0)
[2018-09-20 05:13] LABS: ALBUMIN 2.2 g/dL (3.2-5.5); CREATININE 1.1 mg/dL (0.6-1.2); PHOSPHORUS 2.8 mg/dL (2.5-4.6)
[2018-09-20] MEDS: PHENAZOPYRIDINE 100 MG TABLET PO SCH ×3 (05:47→20:40)
[2018-09-20] MEDS: DEXTROSE 5%-LACTATED RINGERS 1,000 ML IV SCH ×2 (06:53→19:13)
--- NOTE | 2018-09-20 08:18 | MISCELLANEOUS PROVIDER NOTE ---
Miscellaneous Provider Note - - Note: Subjective: Patient seen at bedside looking less lethargic verbal more responsive with knowing where he was today as well as not conveying any specific signs or symptoms of pain. No acute overnight events however he did receive Ativan for agitation. Next Objective: Vital signs are hemodynamically stable, afebrile General: No acute resp distress. Apparent and ongoing neurocognitive deficits. Cachectic and chronically ill-appearing. HEENT: NCAT, pupils reactive, no buccal lesions Neck: No JVD no bruits no lymphadenopathy CV/lungs: RRR, S1-S2 within normal limits, no murmurs gallops clicks or rubs. Improved aeration to bilateral lungs with mild expiratory bibasilar rhonchi, no wheezing, no increased work of breath or retractions. Abdomen: Soft nontender nondistended positive bowel sounds all quadrants no HSM next para extremities/skin: No edema clubbing or cyanosis /rectal: Indwelling Bryant catheter present with no scrotal edema. Extremities/skin: No edema clubbing or cyanosis. 2+ pulses dorsalis pedis bilaterally. Neuro: Poor historian with cranial nerves II to XII grossly intact. Underlying neurocognitive deficits present. Verbalizes well today. No psychomotor retardation. Sensory and motor conserved. DTRs are bilateral symmetric. Labs: Reviewed Imaging studies: Reviewed Assessment/plan: (1) Multi-factorial cause for encephalopathy Assessment/Plan: Patient presented with UTI/Hypoxemia with aspiration PNA on admission as main contributing causes superimposed on severe constipation with moderate right hydronephrosis and mild left hydronephrosis w/o obstructing stones. No evidence of ETOH intoxication or withdrawals,Initially started on an Ativan drip and then subsequently discontinued receiving intermittent doses of Ativan for agitation only. No new neuro deficits despite apparent and ongoing neurocognitive deficits with prior post-CVA residual hemiparesis, and OP dyshagia, dysarthria (chronic). Palliative care services have seen patient and recommendations are for meeting today to discuss further plan of care in regards to comfort care measures and possible hospice on discharge due to lack of patient comprehensive care at home. (2) Recurrent UTI with chronic cystitis Assessment/Plan: Ucx with polymicrobial urine cx >100K, yeast growing. Currently on IV Diflucan as well as Unasyn and this may be discontinued as of today. Patient has a chronic indwelling Bryant catheter which would be a nidus for infection. Pyridium was started for analgesic effect. Patient has bilateral hydronephrosis right more than left. (4) Aspiration pneumonia Assessment/Plan: This will be an ongoing issue for patient and currently on aspiration precautions and a modified dysphagia Diet in place, patient aspirates with nectar thick liquids. All medications currently being crushed. Patient will likely have a quality of life if elected comfort care measures are decided by D POA today. (5) Diabetes mellitus, insulin dependent (IDDM), uncontrolled Assessment/Plan: Continue carb controlled diet and ss Insulin. Lantus to continue for basal coverage, uptitrate prn. Due to patient's inability to eat properly due to aspiration and probably underlying oropharyngeal dysphagia, will defer off artificial nutrition as patient has no artificial nutrition such as PPN or TPN on POLST. (6) Multi-infarct dementia Qualifiers: Dementia behavioral disturbance: with behavioral disturbance Qualified Code(s): F01.51 - Vascular dementia with behavioral disturbance Assessment/Plan: Lesly Sun is patient's DPOA. Updated on status. CT head was negative on . We will continue with medical management. Behavioral disturbances may be attributable to noncompliance and outpatient failures. Patient currently on Namenda crushed along with secondary preventive medications such as aspirin and Lipitor due to history of CVAs. However depending on comfort care measures and decision to transition over will decide to discontinue all medications. (7) Anemia; Stable Qualifiers: Anemia type: iron deficiency Assessment/Plan: Patient received 1 dose of Ferrlecit 125 mg IV x1. Will discontinue all daily lab draws. (8) Oral pharyngeal dysphasia/dysarthria from prior multi-infarct dementia Swallow eval has been performed patient is uncooperative and the choice of IV fluids will need to be continued as patient will be continued on aspiration prec autions and currently is unable to tolerate p.o. medications as well as food. DPOA to discuss possible palliative or quality of life type diet. Failure to thrive is observed as patient has poor oral intake however quality of life diet may be placed if the POA decides on comfort care measures. (9) Severe constipation seen on CT abdomen pelvis. Placed on bowel care protocol, had 6 BM's meatball size overnight. Continue with massaging and other therapies. (10) Methamphetamine abuse Assessment/Plan: NO meth seen on UDS> opiates/benzos seen. This has been his habit for 10 years, twice a week. It is due to this, that he was not accepted at any SNF, from the last recent admission, 3 weeks ago. (11) CKD (chronic kidney disease) stage 3, GFR 30-59 ml/min secondary to DM- nephropathy and obstructive uropathy Assessment/Plan: baseline cr 0.8-1.5. Currently in range. Avoid nephrotoxic agents.Will discontinue IV fluids and have patient continue with oral feeds. (12) History of CVA (cerebrovascular accident) Assessment/Plan: Due to OP-dysphagia/dysarthria and on ASA CA. Patient has multi-infarct ischemic CVA history with complications. Complications with oropharyngeal dysphasia and some residual deficits also noted on prior admission. Patient has multi-infarct dementia as well. We will continue with secondary prevention modalities however oral ingestion of medications will be an issue. Advanced care planning. Patient does have a POLST as DNAR, is really unable to participate in weighing the decisions around the severity of his illness, goals of care, but his prognosis is quite poor even if he were to minimally stabilize, he would not return to previous level of functioning. Would remain at high risk for recurrent infections, and aspiration pneumonia, and does not have a supportive environment to meet increased care needs. DPOA-Sister will need to assist with goals of care decisions, is going to consult with other family members, plan for family meeting with team tomorrow 1430. CODE STATUS: Patient is DNR with a POLST to show no artificial nutrition
--- NOTE | 2018-09-20 08:59 | XRAY Report ---
Reason: PNA Procedure Date: 09/20/2018 Accession Number: [id number] / [id number] Procedure: XR - Chest 1 View X-Ray CPT Code: 77051 FULL RESULT: EXAM: CHEST RADIOGRAPHY EXAM DATE: 09/20/2018 08:47 AM. CLINICAL HISTORY: Pneumonia. COMPARISON: CHEST 1 VIEW 09/16/2018 7:37 PM ABDOMEN/PELVIS W/O 09/18/2018 6:39 PM. TECHNIQUE: 1 view. FINDINGS: Lungs/Pleura: Vascular congestion. Lung volumes are low. Bibasilar opacities. There are bilateral pleural effusions which may be more prominent on the right. Lobular contour of the right hemidiaphragm likely due to pleural fluid. No pneumothorax. Mediastinum: Heart size and mediastinal contour are stable. Other: None. IMPRESSION: 1. Hypoventilatory changes with bibasilar consolidation/atelectasis. 2. Vascular congestion 3. Bilateral pleural effusions which may be more prominent on the right. RADIA
[2018-09-20] MEDS: SERTRALINE 25 MG TABLET PO SCH (09:33)
[2018-09-20] MEDS: MEMANTINE 5 MG TABLET PO SCH ×2 (09:33→20:40)
[2018-09-20] MEDS: SACCHAROMYCES BOULARDII 250 MG CAPSULE PO SCH ×2 (09:33→19:20)
[2018-09-20] MEDS: TAMSULOSIN 0.4 MG CAPSULE PO SCH (09:33)
[2018-09-20] MEDS: SENNA 8.6 MG TABLET PO SCH (09:34)
[2018-09-20] MEDS: MULTIVITAMIN TABLET PO SCH (09:34)
[2018-09-20] MEDS: POLYETHYLENE GLYCOL 3350 17 GM PACKET PO SCH (09:35)
[2018-09-20] MEDS: ASPIRIN 325 MG TABLET PO SCH (09:35)
[2018-09-20] MEDS: LACTULOSE 10 GM/15 ML BOTTLE PR SCH (09:35)
[2018-09-20] MEDS: FERROUS SULFATE 325 MG TABLET PO SCH (09:35)
[2018-09-20] MEDS: INSULIN ASPART 300 UNIT/3 ML PEN SUBQ SCH ×4 (09:37→20:41)
[2018-09-20] MEDS: INSULIN GLARGINE 300 UNIT/3 ML PEN SUBQ SCH ×2 (09:38→20:41)
[2018-09-20] MEDS: FLUCONAZOLE 200 MG/100 ML 100 ML IV SCH (09:39)
[2018-09-20] MEDS: DOCUSATE SODIUM 250 MG CAPSULE PO SCH (09:39)
[2018-09-20] MEDS: LIDOCAINE PATCH 5% TOP PRN (10:07)
[2018-09-20] MEDS: ZINC OXIDE 20% OINT 28.35 GM TUBE TOP PRN (10:07)
[2018-09-20] MEDS: SODIUM CHLORIDE FLUSH 0.9% 10 ML SYRINGE IVP PRN (10:51)
[2018-09-20] MEDS: FUROSEMIDE 20 MG TABLET PO SCH ×2 (10:51→19:20)
--- NOTE | 2018-09-20 17:43 | CONSULTATION NOTE ---
Palliative Care Follow Up - Referral Referring Provider: Major Schofield MD Time of Visit: [id number] Referral setting: Hospitalized patient Referral Reason: Failure to Thrive/Multinfarct Dementia - Information Sources Records reviewed: RN notes reviewed, Previous records reviewed History/Review of Systems obtained from: Family (met with Lesly Sun sister and her Jose/) Exam limitations: Clinical condition (lethargic/confused) - History of Present Illness Update Brief HPI Update: Please see HPI 09/19. Patient has continued to improve, though continues to have difficulty with eating. Is only eating a few bites at each meal, is continued to choke, continues dislike thickened liquids. Patient was lethargic on examination at 1415, unable to arouse. Reports had been up most the night, requiring Lorazepam, and now has slept for a few hours. He was up though in the chair, for breakfast, interacted with few verbal comments, though is not oriented nor making sense. Goal of today's meeting, is to determine further goals of care. Patient did have a chest x-ray done today, which did show vascular congestion, bibasilar opacities, and bilateral effusions more prominent on the right. When follow-up with patient at end of family conference, patient was getting transferred Via Judy lift, was able to make eye contact, again asked the question why am I here, how to take it care, is unable to processing answers. He is very weak, can have a maximum assist for pivot transfer, but cannot follow cueing at this point in time. Palliative care meeting with family, today included is Dr. Schofield for large portion of it, Jie, Sister Lesly, and her Jose. Social History - Living Situation Living arrangement: At home Living Situation: Alone Support System: Patient has lived on [facility] for [facility] years, he has been supported by his sister, And has lived in a trailer. He continues to be connected with substance abuse community, this is been very difficult including an APS referral as patient has become more cognitively impaired and taken advantage of. His sis ter's goal though was to provide a humane and roof over his head, did not want him to be homeless and has supported him as well as trying to set boundaries. She is familiar with his support system, he has had intermittent girlfriend, though they have said they can care for him, aware this would not be appropriate or safe. Medications/Allergies - Medications Active Medication List: Active Medications Aspirin (Jairon) 325 mg PO DAILYWM [facility] Last Admin: 09/20/18 09:35 Dose: 325 mg Bisacodyl (Dulcolax Supp) 10 mg DC DAILY PRN PRN Reason: Constipation Docusate Sodium (Colace 250mg Capsule) 250 - 500 mg PO DAILY [facility] Last Admin: 09/20/18 09:39 Dose: Not Given Doxazosin Mesylate (Cardura) 1 mg PO QPM [facility] Last Admin: 09/19/18 21:00 Dose: 1 mg Ferrous Sulfate (Feosol) 325 mg PO DAILYWM [facility] Last Admin: 09/20/18 09:35 Dose: 325 mg Furosemide (Lasix) 20 mg PO BIDDIURETIC [facility] Last Admin: 09/20/18 10:51 Dose: 20 mg Hydralazine HCl (Apresoline Inj) 10 mg IVP Q4HR PRN PRN Reason: SBP>160 Last Admin: 09/18/18 11:45 Dose: 10 mg Ampicillin Sodium/Sulbactam (Sodium 1.5 gm/ Sodium Chloride) 100 mls @ 200 mls/hr IV Q6HR [facility] Last Infusion: 09/20/18 13:17 Dose: Infused Acetaminophen (Ofirmev) 100 mls @ 400 mls/hr IV Q6HR PRN PRN Reason: PAIN Last Infusion: 09/20/18 05:02 Dose: Infused Fluconazole (Diflucan 200 Mg/100 Ml) 100 mls @ 100 mls/hr IV DAILY [facility] Last Infusion: 09/20/18 10:39 Dose: Infused Dextrose/Lactated Ringer's (D5lr) 1,000 mls @ 100 mls/hr IV .Q10H [facility] Last Infusion: 09/20/18 10:00 Dose: 100 mls/hr Insulin Aspart (Novolog) 3 - 11 unit SUBQ 0800,1200,1700,2100 [facility]; Protocol Last Admin: 09/20/18 12:48 Dose: 9 unit Insulin Glargine (Lantus Solostar) 12 unit SUBQ BID [facility] Last Admin: 09/20/18 09:38 Dose: 12 unit Lactulose (Lactulose) 60 gm DC DAILY [facility] Last Admin: 09/20/18 09:35 Dose: 60 gm Lidocaine (Lidoderm Patch) 1 patch TOP DAILY PRN PRN Reason: PAIN Last Admin: 09/20/18 10:07 Dose: 1 patch Lidocaine HCl (Xylocaine Uro-Jet 2%) 2.5 ml UR Q6H PRN PRN Reason: PAIN Lorazepam (Ativan Inj (Vial)) 2 mg IVP Q2H PRN PRN Reason: Agitation Last Admin: 09/20/18 00:30 Dose: 2 mg Memantine (Namenda) 5 mg PO BID [facility] Last Admin: 09/20/18 09:33 Dose: 5 mg Multi-Ingredient Ointment (Zinc Oxide) 1 applic TOP PRN PRN PRN Reason: Skin Care Stop: 09/25/18 20:39 Last Admin: 09/20/18 10:07 Dose: 1 applic Multivitamins (Theragran) 1 tab PO DAILYWM [facility] Last Admin: 09/20/18 09:34 Dose: 1 tab Phenazopyridine HCl (Pyridium) 100 mg PO TID [facility] Last Admin: 09/20/18 13:03 Dose: 100 mg Polyethylene Glycol (Miralax) 17 gm PO DAILY [facility] Last Admin: 09/20/18 09:35 Dose: 17 gm Pravastatin Sodium (Pravachol) 80 mg PO QPM [facility] Last Admin: 09/19/18 21:01 Dose: 80 mg Prochlorperazine Edisylate (Compazine Inj) 10 mg IVP Q6HR PRN PRN Reason: Nausea / Vomiting Saccharomyces Boulardii (Florastor) 250 mg PO BIDWM [facility] Last Admin: 09/20/18 09:33 Dose: 250 mg Senna (Senokot) 8.6 - 17.2 mg PO DAILY [facility] Last Admin: 09/20/18 09:34 Dose: 17.2 mg Sertraline HCl (Zoloft) 12.5 mg PO DAILY [facility] Last Admin: 09/20/18 09:33 Dose: 12.5 mg Sodium Chloride (Normal Saline Flush 0.9%) 10 ml IVP PRN PRN PRN Reason: NEEDED PER PROVIDER ORDERS Last Admin: 09/20/18 10:51 Dose: 10 ml Sodium Chloride (Normal Saline Flush 0.9%) 10 ml IVP 0100,0900,1700 [facility] Last Admin: 09/20/18 09:39 Dose: Not Given Tamsulosin HCl (Flomax) 0.4 mg PO DAILY [facility] Last Admin: 09/20/18 09:33 Dose: 0.4 mg Aspirin [Aspir 81] 81 mg PO DAILY 11/17/12 - Allergies Allergies/Adverse Reactions: Allergies Allergy/AdvReac Type Severity Reaction Status Date / Time No Known Drug Allergies Allergy Verified 09/13/18 21:26 Review of Systems - Constitutional Constitutional: reports: Poor appetite - Ears, Nose & Throat Ears, Nose & Throat: reports: Dentures, Dry mouth - Cardiovascular Cardiovascular: reports: Decr. exercise tolerance - Respiratory Respiratory: reports: Cough (with food; and with oral secretions) - Gastrointestinal Gastrointestinal: reports: Poor appetite. denies: Constipation (bowels are starting to move, had mod bowel movement today) - Genitourinary Genitourinary: reports: Other (has lara catheter for BPH) - Musculoskeletal Musculoskeletal: reports: Back pain, Stiffness, Muscle weakness, Transfer issues (using judy to move to chair) - Integumentary Integumentary: reports: Dryness - Neurological Neurological: reports: Memory problems (rapid decline in cognitive function over that last couple of weeks from baseline), Slurred speech - Psychiatric Psychiatric: reports: Anxiety, Delusions - Endocrine Endocrine: reports: Diabetes type 2 (blood sugar remains elevated;) - Hematologic/Lymphatic Hematologic/Lymphatic: reports: Anemia, Recurrent infections (UTIs/pneumonia) Physical Exam - Vital Signs Vital Signs: Vital Signs x48h Temp Pulse Resp BP Pulse Ox 09/20/18 15:29 36.5 C 60 20 130/78 94 - Physical Exam General Appearance: positive: Lethargic Neck: positive: Trachea midline Respiratory: positive: Diminished throughout, Rhonchi (upper airways; clear about 50% with coughing) Skin: positive: Pallor Neurologic/Psychiatric: positive: Disoriented to time, Weakness, Slurred/abnml speech, Flat affect Palliative Care - POLST Patient has POLST: Yes POLST Status: DNR, Comfort Measures (transitioned at famly meeting) Pain: Pain improved, Comment (patient with back and abdominal pain on admit; has not reported or has denied pain with staff) Drowsiness/Sedation: Severe (7-10) Anxiety: Moderate (4-6) Constipation: Yes Feelings of wellbeing/Perceived Quality of Life: Poor, Worsening Performance Status: Patient has been able to ambulate 2 or 3 weeks ago, was quite weak, and was functionally declining. Patient currently very weak, needs Judy lift for transfers, needs assist with feeding and cueing. - Palliative Care Discussion: Patient with multi-Infarct dementia, admitted with encephalopathy, UTI, aspiration pneumonia. Patient's dysphagia has increased dramatically, patient unable at this point in time to swallow without significant risk of aspiration, coughing, and choking. Patient only taking few bites, dislikes heartedly the thickened liquids. Needs frequent cueing to chin tucking and gets quite exhausted and exasperated when he does attempt to eat over the last 24 hours. Patient is mostly lethargic, difficulty to arouse, but does fluctuate in levels of alertness. Patient does not present with awareness other than this time he is at [facility], does not understand how he got here, nor can comprehend the seriousness of his illness or present with his medical decision making. He consistently messages he wants to go home. Though has no insight into the context of what this would involve, and is quite weak. Family meeting to talk about goals of care, continuum of care discussion as far as tube feedings no tube feedings, patient would continue to aspirate, most likely pull out PEG tube, would complicate and extend the complexity of his care, and most likely with not Improve nor extend his quality of life. Patient is unable to participate in this conversation. Given the context of patient's deterioration both functionally and cognitively, patient's inability to support himself nutritionally, and recurrent aspiration, Discussion was had regarding transitioning to comfort care. Lesly his sister, did spend time talking to his daughter and son Rui, and his ex-. They are quite supportive of transi tioning him to hospice. His son Rui is driving up from [place], will be in late Monday but will need to leave Monday. Patient has completed antibiotics for aspiration pneumonia, is still on Diflucan for cystitis, discussed weighing benefits and burdens of moving forward with finishing this up in the context of cystitis and son visiting and concern for increased discomfort. Patient expected to continue to deteriorate, will withdraw fluid support, will decrease rate and discontinue on transition to alternative setting or on Monday after her son has visited. Goal will be to focus on comfort, will discontinue all other medications other than insulin. Will add comfort medications of morphine for pain, would recommend morphine sulfate 20 mg/ml; 5-10 mg SL/PO for pain and SOB/respiratory distress in preparation for transition to SNF setting as will not have IV access, and Lorazepam 0.5 -1 mg sl.po every 4 hours for agitation or anxiety. Family's goals include wanting patient to not be distressed as difficult to process information and current situation. As at this point patient not imminently transitioning and managing hyperglycemia would still be considered a comfort measure in the context of following up with family goals. New POLST completed to reflect current goals, which include no further use of antibiotics, no medically assisted nutrition by food, DNA R, and comfort measures as a focus of care. We did discuss in context of transitioning, patient does per [employer] have Medicaid, looking at SNF placement under Medicaid with hospice support. Sister had inquired regarding [facility], this is usually for imminently or within the last few days to weeks, patient may decline quickly and this can be revisited. In the meantime would recommend [facility] or hospice of SNF preference referral L[facility], to correlate with transition to SNF when location/setting available. Family prefers to start search in [place], most likely earliest discharge would be tomorrow afternoon or over the weekend. Son Rui coming to visit tomorrow evening, discussed how best to support him. Reviewed request regarding visitation with friends, worried will promise patient can return home, this is not realistic or safe, had offered to limit visits to family only, but sister decided she will reach out communicate concerns. Reviewed also patient's poor insight, now lack of decision making ability, to not challenge but redirect regarding "wanting to go home", patient expected decline of days to weeks depending on oral intake/aspirations/recurrent infection, await further discussion until transition plan identified. Results - Lab Results Fish Bones: 09/20/18 04:20 09/20/18 04:20 Lab and Imaging Results: Lab Results x24hrs 09/20/18 09/20/18 09/20/18 Range/Units 16:37 11:45 07:56 WBC (4.8-10.8) x10^3/uL RBC (4.70-6.10) 10^6/uL Hgb (14.0-18.0) g/dL Hct (42.0-52.0) % MCV (80.0-94.0) fL MCH (27.0-31.0) pg MCHC (32.0-36.0) g/dL RDW (12.0-15.0) % Plt Count (130-450) 10^3/uL MPV (7.4-11.4) fL Neut # (Auto) (1.5-6.6) 10^3/uL Lymph # (Auto) (1.5-3.5) 10^3/uL [place] # (Auto) (0.0-1.0) 10^3/uL Eos # (Auto) (0.0-0.7) 10^3/uL Baso # (Auto) (0.0-0.1) 10^3/uL Absolute Nucleated RBC x10^3/uL Nucleated RBC % /100WBC Sodium (135-145) mmol/L Potassium (3.5-5.0) mmol/L Chloride (101-111) mmol/L Carbon Dioxide (21-32) mmol/L Anion Gap (6-13) BUN (6-20) mg/dL Creatinine (0.6-1.2) mg/dL Estimated GFR (MDRD) (>89) Glucose (70-100) mg/dL POC Whole Bld Glucose 204 H 300 H 219 H (70 - 100) mg/dL Calcium (8.5-10.3) mg/dL Phosphorus (2.5-4.6) mg/dL Albumin (3.2-5.5) g/dL 09/20/18 09/20/18 09/19/18 Range/Units 04:20 04:20 20:37 WBC 10.0 (4.8-10.8) x10^3/uL RBC 3.40 L (4.70-6.10) 10^6/uL Hgb 10.2 L (14.0-18.0) g/dL Hct 30.5 L (42.0-52.0) % MCV 89.9 (80.0-94.0) fL MCH 30.1 (27.0-31.0) pg MCHC 33.5 (32.0-36.0) g/dL RDW 14.7 (12.0-15.0) % Plt Count 276 (130-450) 10^3/uL MPV 8.8 (7.4-11.4) fL Neut # (Auto) 7.2 H (1.5-6.6) 10^3/uL Lymph # (Auto) 1.6 (1.5-3.5) 10^3/uL [place] # (Auto) 0.7 (0.0-1.0) 10^3/uL Eos # (Auto) 0.4 (0.0-0.7) 10^3/uL Baso # (Auto) 0.1 (0.0-0.1) 10^3/uL Absolute Nucleated RBC 0.01 x10^3/uL Nucleated RBC % 0.1 /100WBC Sodium 147 H (135-145) mmol/L Potassium 3.5 (3.5-5.0) mmol/L Chloride 111 (101-111) mmol/L Carbon Dioxide 27 (21-32) mmol/L Anion Gap 9.0 (6-13) BUN 16 (6-20) mg/dL Creatinine 1.1 (0.6-1.2) mg/dL Estimated GFR (MDRD) 67 L (>89) Glucose 227 H (70-100) mg/dL POC Whole Bld Glucose 213 H (70 - 100) mg/dL Calcium 9.0 (8.5-10.3) mg/dL Phosphorus 2.8 (2.5-4.6) mg/dL Albumin 2.2 L (3.2-5.5) g/dL Impression and Recommendations - Palliative Care Impression: This is a very complicated 63-year-old gentleman who presents with multiinfact dementia, recurrent UTI, aspiration pneumonia, and ongoing functional, cognitive, and hx of multiple hospitalization with deterioration with each stay. Patient has severe dysphagia, needs cueing and assist to eat/swallow, continues to choke, despite modified diet and thickened fluids. Coughs frequently with oral secretions as well. Palliative care consult to assist with family meeting to further define goals of care. Decision has been made to transition to comfort measures with some modifications to accomodate son's arrival, and discharged with hospice support to SNF setting. Recommendations/Counseling Done: 1. Dysphagia. Would recommend revisit orders for comfort feeding, sister aware of risk of aspiration, patient unable to weigh benefits and burdens. Patient most likely would appreciate/benefit from at least plain water. Plan for speech therapy/telephone diaphragm assembler to provide recommended parameters for when patient is alert enough to participate in eating/drinking. 2. Comfort measures. Would recommend discontinue all medications except insulin/diflucan. Initiate oral comfort medications as options given to prepare for transition to SNF setting (no IV access) of morphine 20 mg/ml and crushed lorazepam see PC discussion, as well as decrease IV fluids to 30-50 ml/hr given goals for son's visit. Discontinue on discharge or Monday. 3. Advanced care planning. Family conference with Solange, decision to transition to comfort measures, and discharge to SNF hopefully in [place] with hospice support. Continue to re-evaluate decline daily basis, for transition plan and comfort. Time Spent: 100 minutes with greater than 50% of this in family conference, determining discussing goals of care, recommendations for symptom management and transition to comfort measure, and anticipatory guidance.
[2018-09-20] MEDS: PRAVASTATIN 40 MG TABLET PO SCH (20:41)
[2018-09-20] MEDS: DOXAZOSIN 1 MG TABLET PO SCH (20:41)
[2018-09-21] MEDS: AMPICILLIN/SULBACTAM 1.5 GM in SODIUM CHLORIDE 0.9% MINIBAG 100 ML IV SCH ×4 (00:03→17:13)
[2018-09-21] MEDS: SODIUM CHLORIDE FLUSH 0.9% 10 ML SYRINGE IVP SCH ×3 (01:52→17:17)
[2018-09-21] MEDS: FUROSEMIDE 20 MG TABLET PO SCH ×2 (05:00→14:10)
[2018-09-21] MEDS: PHENAZOPYRIDINE 100 MG TABLET PO SCH ×3 (05:00→21:23)
[2018-09-21] MEDS: DEXTROSE 5%-LACTATED RINGERS 1,000 ML IV SCH (05:24)
--- NOTE | 2018-09-21 08:55 | MISCELLANEOUS PROVIDER NOTE ---
Miscellaneous Provider Note - - Note: Subjective: Patient was seen at bedside with stable neurocognitive deficits and is sitting up eating breakfast and much improved cognition. No acute overnight events. Patient still having "coughing fits". Patient being evaluated for placement to long term facility with possible hospice. Objective: Vital signs are hemodynamically stable, afebrile General: No acute resp distress. Apparent and ongoing neurocognitive deficits. Cachectic and chronically ill-appearing. HEENT: NCAT, pupils reactive, no buccal lesions Neck: No JVD no bruits no lymphadenopathy CV/lungs: RRR, S1-S2 within normal limits, no murmurs gallops clicks or rubs. Improved aeration to bilateral lungs with mild expiratory bibasilar rhonchi, no wheezing, no increased work of breath or retractions. Abdomen: Soft nontender nondistended positive bowel sounds all quadrants no HSM next para extremities/skin: No edema clubbing or cyanosis /rectal: Indwelling Bryant catheter present with no scrotal edema. Extremities/skin: No edema clubbing or cyanosis. 2+ pulses dorsalis pedis bilaterally. Neuro: Dysarthric, poor cognition and communication/understanding. Poor historian with cranial nerves II to XII grossly intact. Underlying neurocognitive deficits present. Verbalizes well today.Psychomotor retardation is present with visual hallucinations. Sensory and motor conserved. DTRs are bilateral symmetric. Labs: Reviewed Imaging studies: Reviewed Assessment/plan: (1) Multi-factorial cause for encephalopathy Assessment/Plan: His status is much improved from previous days. Patient presented with UTI/Hypoxemia with aspiration PNA on admission as main contributing causes superimposed on severe constipation with moderate right hydronephrosis and mild left hydronephrosis w/o obstructing stones. No evidence of ETOH intoxication or withdrawals,Initially started on an Ativan drip and then subsequently discontinued receiving intermittent doses of Ativan for agitation only. No new neuro deficits despite apparent and ongoing neurocognitive deficits with prior post-CVA residual hemiparesis, and OP dyshagia, dysarthria (chronic). Palliative care services have seen patient and recommendations are for Transitioning over to comfort care as per requested D POA and possibility of hospice with possible comfort care medications to be continued. 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 (2) Recurrent UTI with chronic cystitis Assessment/Plan: Patient continues with IV Diflucan and may be withdrawn or converted to oral Diflucan which could be considered as a comfort care medication as this would allow some bladder spasms and bladder comfort as a part of his pain control. Ucx with polymicrobial urine cx >100K, yeast growing. Patient has a chronic indwelling Bryant catheter which would be a nidus for infection. Continue with Pyridium. Patient has bilateral hydronephrosis right more than left. (3) Multifactorial encephalopathy. Psychosis as it pertains to patient's encephalopathy and underlying Multi-infarct dementia Will start on low-dose Zyprexa 2.5 mg ODT 3 times daily as needed. (4) Aspiration pneumonia Assessment/Plan: This will be an ongoing issue for patient and currently on aspiration precautions and a modified dysphagia. Pured Diet in place, patient aspirates with nectar thick liquids. All medications currently being crushed. Patient will likely have a quality of life if elected comfort care. Will discontinue IV Unasyn today. (5) Diabetes mellitus, insulin dependent (IDDM), uncontrolled Assessment/Plan: Continue carb controlled diet and ss Insulin. Lantus to continue for basal coverage, uptitrate prn. Due to patient's inability to eat properly due to aspiration and probably underlying oropharyngeal dysphagia, will defer off artificial nutrition as patient has no artificial nutrition such as PPN or TPN on POLST. (6) Multi-infarct dementia Qualifiers: Dementia behavioral disturbance: with behavioral disturbance Qualified Code(s): F01.51 - Vascular dementia with behavioral disturbance Assessment/Plan: Overall clinical deterioration of his multi-infarct dementia. Lesly Sun is patient's DPOA. Updated on status. CT head was negative on 09/18/18. We will continue with medical management. Behavioral disturbances may be attributable to noncompliance and outpatient failures. Patient currently on Namenda crushed along with secondary preventive medications such as aspirin and Lipitor due to history of CVAs. However depending on comfort care measures and decision to transition over will decide to discontinue all medications. (7) Anemia; Stable Qualifiers: Anemia type: iron deficiency Assessment/Plan: Patient received 1 dose of Ferrlecit 125 mg IV x1. Will discontinue all daily lab draws. (8) Oral pharyngeal dysphasia/dysarthria from prior multi-infarct dementia IV fluids have been discontinued, patient has been tolerating oral feedings well and will have speech pathology and dietitian to come with consensus on quality of life diet. DPOA to discuss possible palliative or quality of life type diet. Failure to thrive is observed as patient has poor oral intake however quality of life diet may be placed if the POA decides on comfort care measures. (9) Severe constipation seen on CT abdomen pelvis. Placed on bowel care protocol, had 6 BM's meatball size overnight. Continue with massaging and other therapies. (10) Methamphetamine abuse Assessment/Plan: NO meth seen on UDS> opiates/benzos seen. This has been his habit for 10 years, twice a week. It is due to this, that he was not accepted at any SNF, from the last recent admission, 3 weeks ago. (11) CKD (chronic kidney disease) stage 3, GFR 30-59 ml/min secondary to DM- nephropathy and obstructive uropathy Assessment/Plan: baseline cr 0.8-1.5. Currently in range. Avoid nephrotoxic agents.Will discontinue IV fluids and have patient continue with oral feeds. (12) History of CVA (cerebrovascular accident) Assessment/Plan: Due to OP-dysphagia/dysarthria and on ASA OR. Patient has multi-infarct ischemic CVA history with complications. Complications with oropharyngeal dysphasia and some residual deficits also noted on prior admission. Patient has multi-infarct dementia as well. We will continue with secondary prevention modalities however oral ingestion of medications will be an issue. Advanced care planning. Patient does have a POLST as DNAR, is really unable to participate in weighing the decisions around the severity of his illness, goals of care, but his prognosis is quite poor even if he were to minimally stabilize, he would not return to previous level of functioning. Would remain at high risk for recurrent infections, and aspiration pneumonia, and does not have a supportive environment to meet increased care needs. DPOA-Sister will need to assist with goals of care decisions, Meeting was with Lesly and her significant other and she is on board with comfort care measures and possibly hospice. Patient's son to visit while in hospital. Will continue medications up until then and decide withdrawing once patient has been approved to a long term facility with possible hospice placement. Some medications may be continued for part of palliative goals of treating pain, anxiety, discomfort. CODE STATUS: Patient is DNR with a POLST to show no artificial nutrition
[2018-09-21] MEDS: POLYETHYLENE GLYCOL 3350 17 GM PACKET PO SCH (09:18)
[2018-09-21] MEDS: ASPIRIN 325 MG TABLET PO SCH (09:19)
[2018-09-21] MEDS: SACCHAROMYCES BOULARDII 250 MG CAPSULE PO SCH ×2 (09:19→17:13)
[2018-09-21] MEDS: SENNA 8.6 MG TABLET PO SCH (09:19)
[2018-09-21] MEDS: MEMANTINE 5 MG TABLET PO SCH ×2 (09:19→21:23)
[2018-09-21] MEDS: DOCUSATE SODIUM 250 MG CAPSULE PO SCH (09:19)
[2018-09-21] MEDS: SERTRALINE 25 MG TABLET PO SCH (09:19)
[2018-09-21] MEDS: MULTIVITAMIN TABLET PO SCH (09:20)
[2018-09-21] MEDS: TAMSULOSIN 0.4 MG CAPSULE PO SCH (09:20)
[2018-09-21] MEDS: INSULIN GLARGINE 300 UNIT/3 ML PEN SUBQ SCH ×2 (09:20→21:25)
[2018-09-21] MEDS: FERROUS SULFATE 325 MG TABLET PO SCH (09:20)
[2018-09-21] MEDS: FLUCONAZOLE 200 MG/100 ML 100 ML IV SCH (09:20)
[2018-09-21] MEDS: INSULIN ASPART 300 UNIT/3 ML PEN SUBQ SCH ×4 (09:21→21:24)
[2018-09-21] MEDS: LACTULOSE 10 GM/15 ML BOTTLE PR SCH (09:22)
[2018-09-21] MEDS ORDERED: guaiFENesin/CODEINE 5 ML UDC PO PRN (17:41)
[2018-09-21] MEDS: OLANZapine ODT 5 MG TABLET TL PRN (19:57)
[2018-09-21] MEDS: LIDOCAINE PATCH 5% TOP PRN (20:10)
[2018-09-21] MEDS: DOXAZOSIN 1 MG TABLET PO SCH (21:23)
[2018-09-21] MEDS: PRAVASTATIN 40 MG TABLET PO SCH (21:23)
--- NOTE | 2018-09-21 23:53 | XRAY Report ---
Reason: new tachycardia w old right sides cp Procedure Date: 09/21/2018 Accession Number: [id number] / [id number] Procedure: XR - Chest 1 View X-Ray CPT Code: 60067 FULL RESULT: EXAM: CHEST RADIOGRAPHY EXAM DATE: 09/21/2018 11:15 PM. CLINICAL HISTORY: New onset tachycardia. Right-sided chest pain. COMPARISON: CHEST 1 VIEW 09/20/2018 8:26 AM CHEST 1 VIEW 09/16/2018 7:37 PM CHEST 2 VIEW 09/14/2018 8:49 AM CHEST 1 VIEW 09/01/2018 11:34 AM. TECHNIQUE: 1 view. FINDINGS IMPRESSION: 1. There is diffuse hazy right lung opacity. Additional, right mid lung base region airspace consolidation. Airspace consolidation has progressed from the prior exam. Combined findings could be secondary to progressive infection. Aspiration and/or asymmetric edema are in the differential diagnosis. 2. There is no definite evidence of a pneumothorax. 3. There is a small to medium right-sided pleural effusion, gradually increasing. 4. Cardiac silhouette is at the upper limits of normal. 5. No displaced fracture. Moderate right shoulder degenerative change. RADIA
[2018-09-22] MEDS: PHENAZOPYRIDINE 100 MG TABLET PO SCH ×3 (06:11→21:09)
[2018-09-22] MEDS: SODIUM CHLORIDE FLUSH 0.9% 10 ML SYRINGE IVP SCH ×3 (06:11→17:36)
[2018-09-22] MEDS: INSULIN ASPART 300 UNIT/3 ML PEN SUBQ SCH ×4 (07:23→21:21)
[2018-09-22] MEDS: DOCUSATE SODIUM 250 MG CAPSULE PO SCH (07:24)
[2018-09-22] MEDS: SENNA 8.6 MG TABLET PO SCH (07:24)
[2018-09-22] MEDS: POLYETHYLENE GLYCOL 3350 17 GM PACKET PO SCH (07:24)
[2018-09-22] MEDS: FERROUS SULFATE 325 MG TABLET PO SCH (09:05)
[2018-09-22] MEDS: SACCHAROMYCES BOULARDII 250 MG CAPSULE PO SCH ×2 (09:05→17:34)
[2018-09-22] MEDS: MULTIVITAMIN TABLET PO SCH (09:05)
[2018-09-22] MEDS: ASPIRIN 325 MG TABLET PO SCH (09:05)
[2018-09-22] MEDS: TAMSULOSIN 0.4 MG CAPSULE PO SCH (09:05)
[2018-09-22] MEDS: MEMANTINE 5 MG TABLET PO SCH ×2 (09:05→21:09)
[2018-09-22] MEDS: SERTRALINE 25 MG TABLET PO SCH (09:05)
[2018-09-22] MEDS: OLANZapine ODT 5 MG TABLET TL PRN (09:06)
[2018-09-22] MEDS: INSULIN GLARGINE 300 UNIT/3 ML PEN SUBQ SCH ×2 (09:07→21:22)
[2018-09-22] MEDS: LACTULOSE 10 GM/15 ML BOTTLE PR SCH (09:07)
[2018-09-22] MEDS: MORPHINE SOL 10 MG/0.5 ML SYRINGE PO PRN ×2 (09:28→19:04)
--- NOTE | 2018-09-22 11:07 | MISCELLANEOUS PROVIDER NOTE ---
Miscellaneous Provider Note - - Note: Subjective: Patient is actively hallucinating and with baseline neurocognitive deficits. Currently awaiting placement. Patient with multiple bowel movements overnight, no fevers, GI or symptoms, has any chronic indwelling Bryant catheter, denies rashes, joint swelling, chest pain, bouts of coughing fits are prevalent. Objective: Vital signs are hemodynamically stable, afebrile General: No acute resp distress. Apparent and ongoing neurocognitive deficits. Cachectic and chronically ill-appearing. HEENT: NCAT, pupils reactive, no buccal lesions Neck: No JVD no bruits no lymphadenopathy CV/lungs: RRR, S1-S2 within normal limits, no murmurs gallops clicks or rubs. Improved aeration to bilateral lungs with mild expiratory bibasilar rhonchi, no wheezing, no increased work of breath or retractions. Abdomen: Soft nontender nondistended positive bowel sounds all quadrants no HSM next para extremities/skin: No edema clubbing or cyanosis /rectal: Indwelling Bryant catheter present with no scrotal edema. Extremities/skin: No edema clubbing or cyanosis. 2+ pulses dorsalis pedis bilaterally. Neuro: Dysarthric, poor cognition and communication/understanding. Poor historian with cranial nerves II to XII grossly intact. Underlying neurocognitive deficits present. Verbalizes well today.Psychomotor retardation is present with visual hallucinations. Sensory and motor conserved. DTRs are bilateral symmetric. Labs: Reviewed Imaging studies: Reviewed Assessment/plan: (1) Multi-factorial cause for encephalopathy Assessment/Plan: His status is much improved from previous days. However currently patient is actively with some psychotic features that is being managed with Zyprexa, low- dose. Patient presented with UTI/Hypoxemia with aspiration PNA on admission as main contributing causes superimposed on severe constipation with moderate right hydronephrosis and mild left hydronephrosis w/o obstructing stones. No evidence of ETOH intoxication or withdrawals,Initially started on an Ativan drip and then subsequently discontinued receiving intermittent doses of Ativan for agitation only. No new neuro deficits despite apparent and ongoing neurocognitive deficits with prior post-CVA residual hemiparesis, and OP dyshagia, dysarthria (chronic). Palliative care services have seen patient and recommendations are for Transitioning over to comfort care as per requested DPOA and possibility of hospice with possible comfort care medications to be continued. 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 (2) Recurrent UTI with chronic cystitis Assessment/Plan: Patient was previously on IV Diflucan and will continue with oral Diflucan 100 mg p.o. twice daily to continue, which could be considered as a comfort care medication as this would allow some bladder spasms and bladder comfort as a part of his pain control. Ucx with polymicrobial urine cx >100K, yeast growing. Patient has a chronic indwelling Bryant catheter which would be a nidus for infection. Continue with Pyridium. Patient has bilateral hydronephrosis right more than left. (3) Aspiration pneumonia Assessment/Plan: Chest x-ray dated 09/21 shows diffuse hazy right sided opacity and airspace consolidation which has progressed which has an associated right pleural effusion. Is currently off of IV Unasyn and will start on Augmentin chewables 200 mg, 3 tabs p.o. twice daily crushed with applesauce.. This will be an ongoing issue for patient and currently on aspiration precautions and a modified dysphagia. Pured Diet in place, patient aspirates with nectar thick liquids. All medications currently being crushed. Patient will likely have a quality of life if elected comfort care. (4) Diabetes mellitus, insulin dependent (IDDM), uncontrolled Assessment/Plan: Patient sugar has been somewhat labile with a 91 today. Will titrate to 8 units subcu twice daily now. Continue carb controlled diet and ss Insulin. Due to patient's inability to eat properly due to aspiration and probably underlying oropharyngeal dysphagia, will defer off artificial nutrition as patient has no artificial nutrition such as PPN or TPN on POLST. (5) Multi-infarct dementia Qualifiers: Dementia behavioral disturbance: with behavioral disturbance Qualified Code(s): F01.51 - Vascular dementia with behavioral disturbance Assessment/Plan: Overall clinical deterioration of his multi-infarct dementia. However, behaviorally patient has only had some psychotic episodes without any agitation or aggression. Lesly Sun is patient's DPOA. Updated on status. CT head was negative on 09/18/18. We will continue with medical management. Behavioral disturbances may be attributable to noncompliance and outpatient failures. Patient currently on Namenda crushed along with secondary preventive medications such as aspirin and Lipitor due to history of CVAs. However depending on comfo rt care measures and decision to transition over will decide to discontinue all medications. (6) Anemia; Stable Qualifiers: Anemia type: iron deficiency Assessment/Plan: Patient received 1 dose of Ferrlecit 125 mg IV x1. We will continue with oral supplementation iron supplements. Will discontinue all daily lab draws. (7) Oral pharyngeal dysphasia/dysarthria from prior multi-infarct dementia IV fluids have been discontinued, patient has been tolerating oral feedings well and will have speech pathology and dietitian to come with consensus on quality of life diet. DPOA to discuss possible palliative or quality of life type diet. Failure to thrive is observed as patient has poor oral intake however quality of life diet may be placed if the POA decides on comfort care measures. (8) Severe constipation seen on CT abdomen pelvis. This has improved significantly. Lactulose will be placed on as needed as well as MiraLAX. Continue with massaging and other therapies. (9) Methamphetamine abuse Assessment/Plan: NO meth seen on UDS> opiates/benzos seen. Previously with a 10-year habit however has not had any recurrence on this admission and does not appear to Any drug habit users visit patient while on this admission. The concern for his relapse is very low due to now DPOA Sister Lesly taking over his care. (10) CKD (chronic kidney disease) stage 3, GFR 30-59 ml/min secondary to DM- nephropathy and obstructive uropathy Assessment/Plan: Patient is now with oral feeds and perfusing kidneys well back to his baseline; baseline cr 0.8-1.5. Currently in range. Avoid nephrotoxic agents. (11) History of CVA (cerebrovascular accident) Assessment/Plan: Due to OP-dysphagia/dysarthria and on ASA PA. Patient has multi-infarct ischemic CVA history with complications. Complications with oropharyngeal dysphasia and some residual deficits also noted on prior admission. Patient has multi-infarct dementia as well. We will continue with secondary prevention modalities however oral ingestion of medications will be an issue. Advanced care planning. Patient does have a POLST as DNAR, is really unable to participate in weighing the decisions around the severity of his illness, goals of care, but his prognosis is quite poor even if he were to minimally stabilize, he would not return to previous level of functioning. Would remain at high risk for recurrent infections, and aspiration pneumonia, and does not have a supportive environment to meet increased care needs. DPOA-Sister will need to assist with goals of care decisions, Meeting was with Lesly and her significant other and she is on board with comfort care measures and possibly hospice. Patient's son to visit while in hospital. Patient being evaluated for placement and currently has been refused in many locations and will be an ongoing issue moving forward. Some medications may be continued for part of palliative goals of treating pain, anxiety, discomfort. CODE STATUS: Patient is DNR with a POLST to show no artificial nutrition
[2018-09-22] MEDS: AMOX/CLAV 200 MG/28.5 MG CHEW TABLET PO SCH ×2 (11:24→21:08)
[2018-09-22] MEDS: FLUCONAZOLE 100 MG TABLET PO SCH ×2 (11:24→21:08)
[2018-09-22] MEDS: DOXAZOSIN 1 MG TABLET PO SCH (21:07)
[2018-09-22] MEDS: PRAVASTATIN 40 MG TABLET PO SCH (21:08)
[2018-09-23] MEDS: SODIUM CHLORIDE FLUSH 0.9% 10 ML SYRINGE IVP SCH ×3 (01:45→20:00)
[2018-09-23] MEDS: PHENAZOPYRIDINE 100 MG TABLET PO SCH ×3 (06:41→21:35)
[2018-09-23] MEDS: MORPHINE SOL 10 MG/0.5 ML SYRINGE PO PRN ×3 (06:53→21:36)
[2018-09-23] MEDS: INSULIN ASPART 300 UNIT/3 ML PEN SUBQ SCH ×4 (07:44→21:44)
[2018-09-23] MEDS: AMOX/CLAV 200 MG/28.5 MG CHEW TABLET PO SCH ×2 (08:29→21:36)
[2018-09-23] MEDS: FLUCONAZOLE 100 MG TABLET PO SCH ×2 (08:30→21:35)
[2018-09-23] MEDS: SENNA 8.6 MG TABLET PO SCH (08:30)
[2018-09-23] MEDS: MEMANTINE 5 MG TABLET PO SCH ×2 (08:30→21:36)
[2018-09-23] MEDS: DOCUSATE SODIUM 250 MG CAPSULE PO SCH (08:30)
[2018-09-23] MEDS: SACCHAROMYCES BOULARDII 250 MG CAPSULE PO SCH ×2 (08:30→17:12)
[2018-09-23] MEDS: SERTRALINE 25 MG TABLET PO SCH (08:30)
[2018-09-23] MEDS: ASPIRIN 325 MG TABLET PO SCH (08:30)
[2018-09-23] MEDS: FERROUS SULFATE 325 MG TABLET PO SCH (08:31)
[2018-09-23] MEDS: TAMSULOSIN 0.4 MG CAPSULE PO SCH (08:31)
[2018-09-23] MEDS: MULTIVITAMIN TABLET PO SCH (08:31)
[2018-09-23] MEDS: INSULIN GLARGINE 300 UNIT/3 ML PEN SUBQ SCH ×2 (08:36→21:45)
--- NOTE | 2018-09-23 10:59 | MISCELLANEOUS PROVIDER NOTE ---
Miscellaneous Provider Note - - Note: Subjective: No acute overnight events, family is at bedside. Intermittent hallucination noted. Objective: Vital signs are hemodynamically stable, afebrile General: No acute resp distress. Apparent and ongoing neurocognitive deficits. Cachectic and chronically ill-appearing. HEENT: NCAT, pupils reactive, no buccal lesions Neck: No JVD no bruits no lymphadenopathy CV/lungs: RRR, S1-S2 within normal limits, no murmurs gallops clicks or rubs. Improved aeration to bilateral lungs with mild expiratory bibasilar rhonchi, no wheezing, no increased work of breath or retractions. Abdomen: Soft nontender nondistended positive bowel sounds all quadrants no HSM next para extremities/skin: No edema clubbing or cyanosis /rectal: Indwelling Bryant catheter present with no scrotal edema. Extremities/skin: No edema clubbing or cyanosis. 2+ pulses dorsalis pedis bilaterally. Neuro: Dysarthric, poor cognition and communication/understanding. Poor historian with cranial nerves II to XII grossly intact. Underlying neurocognitive deficits present. Verbalizes well today. Intermittent psychomotor retardation. Sensory and motor conserved. DTRs are bilateral symmetric. Labs: Reviewed Imaging studies: Reviewed Assessment/plan: (1) Multi-factorial cause for encephalopathy Assessment/Plan: His status is much improved from previous days. However currently patient is actively with some psychotic features that is being managed with Zyprexa, low- dose. Patient presented with UTI/Hypoxemia with aspiration PNA on admission as main contributing causes superimposed on severe constipation with moderate right hydronephrosis and mild left hydronephrosis w/o obstructing stones. No evidence of ETOH intoxication or withdrawals,Initially started on an Ativan drip and then subsequently discontinued receiving intermittent doses of Ativan for agitation only. No new neuro deficits despite apparent and ongoing neurocognitive deficits with prior post-CVA residual hemiparesis, and OP dyshagia, dysarthria (chronic). Palliative care services have seen patient and recommendations are for Transitioning over to comfort care as per requested DPOA and possibility of hospice with possible comfort care medications to be continued. aquaculture worker is working on possible placement to a half-way facility that has a Hospice Place, However this has been unsuccessful and difficult placement anticipated. (2) Recurrent UTI with chronic cystitis Assessment/Plan: Patient was previously on IV Diflucan and will continue with oral Diflucan 100 mg p.o. twice daily to continue, which could be considered as a comfort care medication as this would allow some bladder spasms and bladder comfort as a part of his pain control. Ucx with polymicrobial urine cx >100K, yeast growing. Patient has a chronic indwelling Bryant catheter which would be a nidus for infection. Continue with Pyridium. Patient has bilateral hydronephrosis right more than left. (3) Aspiration pneumonia Assessment/Plan: Chest x-ray dated 09/21 shows diffuse hazy right sided opacity and airspace consolidation which has progressed which has an associated right pleural effusion. Is currently off of IV Unasyn and will start on Augmentin chewables 200 mg, 3 tabs p.o. twice daily crushed with applesauce.. This will be an ongoing issue for patient and currently on aspiration precautions and a modified dysphagia. Pured Diet in place, patient aspirates with nectar thick liquids. All medications currently being crushed. Patient will likely have a quality of life if elected comfort care. (4) Diabetes mellitus, insulin dependent (IDDM), uncontrolled Assessment/Plan: Patient sugar has been somewhat labile with a 91 today. Will titrate to 8 units subcu twice daily now. Continue carb controlled diet and ss Insulin. Due to patient's inability to eat properly due to aspiration and probably underlying oropharyngeal dysphagia, will defer off artificial nutrition as patient has no artificial nutrition such as PPN or TPN on POLST. (5) Multi-infarct dementia Qualifiers: Dementia behavioral disturbance: with behavioral disturbance Qualified Code(s): F01.51 - Vascular dementia with behavioral disturbance Assessment/Plan: Overall clinical deterioration of his multi-infarct dementia. However, behaviorally patient has only had some psychotic episodes without any agitation or aggression. Lesly Dino is patient's DPOA. Updated on status. CT head was negative on 09/18/18. We will continue with medical management. Behavioral disturbances may be attributable to noncompliance and outpatient failures. Patient currently on Namenda crushed along with secondary preventive medications such as aspirin and Lipitor due to history of CVAs. However depending on comfort care measures and decision to transition over will decide to discontinue all medications. (6) Anemia; Stable Qualifiers: Anemia type: iron deficiency Assessment/Plan: Patient received 1 dose of Ferrlecit 125 mg IV x1. We will continue with oral supplementation iron supplements. Will discontinue all daily lab draws. (7) Oral pharyngeal dysphasia/dysarthria from prior multi-infarct dementia IV fluids have been discontinued, patient has been tolerating oral feedings well and will have speech pathology and dietitian to come with consensus on quality of life diet. DPOA to discuss possible palliative or quality of life type diet. Failure to thrive is observed as patient has poor oral intake however quality of life diet may be placed if the POA decides on comfort care measures. (8) Severe constipation seen on CT abdomen pelvis. This has improved significantly. Lactulose will be placed on as needed as well as MiraLAX. Continue with massaging and other therapies. (9) Methamphetamine abuse Assessment/Plan: NO meth seen on UDS> opiates/benzos seen. Previously with a 10-year habit however has not had any recurrence on this admission and does not appear to Any drug habit users visit patient while on this admission. The concern for his relapse is very low due to now DPOA Sister Lesly taking over his care. (10) CKD (chronic kidney disease) stage 3, GFR 30-59 ml/min secondary to DM- nephropathy and obstructive uropathy Assessment/Plan: Patient is now with oral feeds and perfusing kidneys well back to his baseline; baseline cr 0.8-1.5. Currently in range. Avoid nephrotoxic agents. (11) History of CVA (cerebrovascular accident) Assessment/Plan: Due to OP-dysphagia/dysarthria and on ASA FL. Patient has multi-infarct ischemic CVA history with complications. Complications with oropharyngeal dysphasia and some residual deficits also noted on prior admission. Patient has multi-infarct dementia as well. We will continue with secondary prevention modalities however oral ingestion of medications will be an issue. Advanced care planning. Patient does have a POLST as DNAR, is really unable to participate in weighing the decisions around the severity of his illness, goals of care, but his prognosis is quite poor even if he were to minimally stabilize, he would not return to previous level of functioning. Would remain at high risk for recurrent infections, and aspiration pneumonia, and does not have a suppor tive environment to meet increased care needs. DPOA-Sister will need to assist with goals of care decisions, Meeting was with Lesly and her significant other and she is on board with comfort care measures and possibly hospice. Patient's son to visit while in hospital. Patient being evaluated for placement and currently has been refused in many locations and will be an ongoing issue moving forward. Some medications may be continued for part of palliative goals of treating pain, anxiety, discomfort. CODE STATUS: Patient is DNR with a POLST to show no artificial nutrition
[2018-09-23] MEDS: ACETAMINOPHEN 1,000 MG/100 ML 100 ML IV PRN (14:02)
[2018-09-23] MEDS: SODIUM CHLORIDE FLUSH 0.9% 10 ML SYRINGE IVP PRN (14:22)
[2018-09-23] MEDS: DOXAZOSIN 1 MG TABLET PO SCH (21:36)
[2018-09-23] MEDS: PRAVASTATIN 40 MG TABLET PO SCH (21:36)
[2018-09-23] MEDS: LIDOCAINE PATCH 5% TOP PRN (23:30)
[2018-09-24] MEDS: SODIUM CHLORIDE FLUSH 0.9% 10 ML SYRINGE IVP SCH ×4 (01:49→23:37)
[2018-09-24] MEDS: ACETAMINOPHEN 1,000 MG/100 ML 100 ML IV PRN ×2 (05:08→18:35)
[2018-09-24] MEDS: MORPHINE SOL 10 MG/0.5 ML SYRINGE PO PRN ×5 (05:08→23:52)
[2018-09-24] MEDS: PHENAZOPYRIDINE 100 MG TABLET PO SCH ×3 (05:14→22:00)
[2018-09-24] MEDS: SODIUM CHLORIDE FLUSH 0.9% 10 ML SYRINGE IVP PRN ×2 (05:28→18:57)
--- NOTE | 2018-09-24 07:17 | MISCELLANEOUS PROVIDER NOTE ---
Miscellaneous Provider Note - - Note: Subjective: Patient with low-grade fevers, no acute overnight events. Patient had nonfamily visitors. Objective: Vital signs are hemodynamically stable, afebrile, T-max 100.2, heart rate of 79 bpm, blood pressure 142/72, RR 16, 92% O2 saturation on room air General: No acute resp distress. Apparent and ongoing neurocognitive deficits. Cachectic and chronically ill-appearing. HEENT: NCAT, pupils reactive, no buccal lesions Neck: No JVD no bruits no lymphadenopathy CV/lungs: RRR, S1-S2 within normal limits, no murmurs gallops clicks or rubs. Improved aeration to bilateral lungs with mild expiratory bibasilar rhonchi, no wheezing, no increased work of breath or retractions. Abdomen: Soft nontender nondistended positive bowel sounds all quadrants no HSM next para extremities/skin: No edema clubbing or cyanosis /rectal: Indwelling Bryant catheter present with no scrotal edema. Extremities/skin: No edema clubbing or cyanosis. 2+ pulses dorsalis pedis bilaterally. Neuro: Dysarthric, poor cognition and communication/understanding. Poor histor jake with cranial nerves II to XII grossly intact. Underlying neurocognitive deficits present. Verbalizes well today. Intermittent psychomotor retardation. Sensory and motor conserved. DTRs are bilateral symmetric. Labs: Reviewed Imaging studies: Reviewed Assessment/plan: (1) Multi-factorial cause for encephalopathy Assessment/Plan: Patient with intermittent psychomotor retardation being managed with Zyprexa low-dose, visitors are to strictly be family members only. Will reinforce this with nursing leadership due to history of substance abuse with drug addicted friends. Patient presented with UTI/Hypoxemia with aspiration PNA on admission as main contributing causes superimposed on severe constipation with moderate right hydronephrosis and mild left hydronephrosis w/o obstructing stones. No evidence of ETOH intoxication or withdrawals. Initially started on an Ativan drip and then subsequently discontinued receiving intermittent doses of Ativan for agitation only. No new neuro deficits despite apparent and ongoing neurocognitive deficits with prior post-CVA residual hemiparesis, and OP dyshagia, dysarthria (chronic). Palliative care services have seen patient and recommendations are for Transitioning over to comfort care as per requested DPOA and possibility of hospice with possible comfort care medications to be continue d. personal support worker is working on possible placement to a long-term facility that has a Hospice Place, However this has been unsuccessful and difficult placement anticipated. (2) Recurrent UTI with chronic cystitis Assessment/Plan: Patient was previously on IV Diflucan and will continue with oral Diflucan 100 mg p.o. twice daily to continue, which could be considered as a comfort care medication as this would allow some bladder spasms and bladder comfort as a part of his pain control. Ucx with polymicrobial urine cx >100K, yeast growing. Patient has a chronic indwelling Bryant catheter which would be a nidus for infection. Patient has been on Pyridium for approximately 3 days with some discoloration of urine which is anticipated. Patient has bilateral hydronephrosis right more than left. (3) Aspiration pneumonia Assessment/Plan: This has improved however patient has low-grade fevers. Chest x-ray dated 09/21 shows diffuse hazy right sided opacity and airspace consolidation which has progressed which has an associated right pleural effusion. Initially placed on IV Unasyn and de-escalation now on Augmentin chewables 200 mg, 3 tabs p.o. twice daily crushed with applesauce.. This will be an ongoing issue Per speech pathology. Patient currently on aspiration precautions and a Pured Diet in place, patient aspirates with nectar thick liquids. All medications currently being crushed. Patient will likely have a quality of life if elected comfort care. (4) Diabetes mellitus, insulin dependent (IDDM), uncontrolled Assessment/Plan: Sugars have been labile. Will titrate to 10 units subcu twice daily. Continue carb controlled diet and ss Insulin. Due to patient's inability to eat properly due to aspiration and probably underlying oropharyngeal dysphagia, will defer off artificial nutrition as patient has no artificial nutrition such as PPN or TPN on POLST. (5) Multi-infarct dementia Qualifiers: Dementia behavioral disturbance: with behavioral disturbance Qualified Code(s): F01.51 - Vascular dementia with behavioral disturbance Assessment/Plan: Multi-infarct dementia with behavioral disturbances have now been stabilized. Psychomotor retardation is controlled with Zyprexa and no aggression or behavioral lability is noted. Lesly Sun is patient's DPOA. Updated on status. CT head was negative on 09/18/18. We will continue with medical manage ment. Behavioral disturbances may be attributable to noncompliance and outpatient failures. Patient currently on Namenda crushed along with secondary preventive medications such as aspirin and Lipitor due to history of CVAs. However depending on comfort care measures and decision to transition over will decide to discontinue all medications. (6) Anemia; Stable Qualifiers: Anemia type: iron deficiency Assessment/Plan: Patient received 1 dose of Ferrlecit 125 mg IV x1. We will continue with oral supplementation iron supplements. Will discontinue all daily lab draws. (7) Oral pharyngeal dysphasia/dysarthria from prior multi-infarct dementia IV fluids have been discontinued, patient has been tolerating oral feedings well and will have speech pathology and dietitian to come with consensus on quality of life diet. DPOA to discuss possible palliative or quality of life type diet. Failure to thrive is observed as patient has poor oral intake however quality of life diet may be placed if the POA decides on comfort care measures. (8) Severe constipation seen on CT abdomen pelvis. This has improved significantly. MiraLAX as needed. (9) Methamphetamine abuse Assessment/Plan: NO meth seen on UDS> opiates/benzos seen. Previously with a 10-year habit however has not had any recurrence on this admission and does not appear to Any drug habit users visit patient while on this admission. The concern for his relapse is very low due to now DPOA Sister Lesly taking over his care. (10) CKD (chronic kidney disease) stage 3, GFR 30-59 ml/min secondary to DM- nephropathy and obstructive uropathy Assessment/Plan: Patient is now with oral feeds and perfusing kidneys well back to his baseline; baseline cr 0.8-1.5. Currently in range. Avoid nephrotoxic agents. (11) History of CVA (cerebrovascular accident) Assessment/Plan: Due to OP-dysphagia/dysarthria. Currently all medication is being crushed. Patient has multi-infarct ischemic CVA history with complications. Complications with oropharyngeal dysphasia and some residual deficits also noted on prior admission. Patient has multi-infarct dementia as well. We will continue with secondary prevention modalities however oral ingestion of medications will be an issue. Advanced care planning. Patient does have a POLST as DNAR, is really unable to participate in weighing the decisions around the severity of his illness, goals of care, but his prognosis is quite poor even if he were to minimally stabilize, he would not return to previous level of functioning. Would remain at high risk for recurrent infections, and aspiration pneumonia, and does not have a supportive environment to meet increased care needs. DPOA-Sister will need to assist with goals of care decisions, Meeting was with Lesly and her significant other and she is on board with comfort care measures and possibly hospice. Patient's son to visit while in hospital. Patient being evaluated for placement and currently has been refused in many locations and will be an ongoing issue moving forward. Some medications may be continued for part of palliative goals of treating pain, anxiety, discomfort. CODE STATUS: Patient is DNR with a POLST to show no artificial nutrition
[2018-09-24] MEDS: FERROUS SULFATE 325 MG TABLET PO SCH (08:12)
[2018-09-24] MEDS: TAMSULOSIN 0.4 MG CAPSULE PO SCH (08:12)
[2018-09-24] MEDS: MULTIVITAMIN TABLET PO SCH (08:12)
[2018-09-24] MEDS: SACCHAROMYCES BOULARDII 250 MG CAPSULE PO SCH ×2 (08:12→17:38)
[2018-09-24] MEDS: POLYETHYLENE GLYCOL 3350 17 GM PACKET PO PRN (08:12)
[2018-09-24] MEDS: SERTRALINE 25 MG TABLET PO SCH (08:12)
[2018-09-24] MEDS: ASPIRIN 325 MG TABLET PO SCH (08:12)
[2018-09-24] MEDS: FLUCONAZOLE 100 MG TABLET PO SCH ×2 (08:12→22:01)
[2018-09-24] MEDS: DOCUSATE SODIUM 250 MG CAPSULE PO SCH (08:12)
[2018-09-24] MEDS: MEMANTINE 5 MG TABLET PO SCH ×2 (08:12→22:01)
[2018-09-24] MEDS: SENNA 8.6 MG TABLET PO SCH (08:13)
[2018-09-24] MEDS: INSULIN ASPART 300 UNIT/3 ML PEN SUBQ SCH ×4 (08:15→22:08)
[2018-09-24] MEDS: INSULIN GLARGINE 300 UNIT/3 ML PEN SUBQ SCH ×3 (08:15→22:08)
[2018-09-24] MEDS: AMOX/CLAV 200 MG/28.5 MG CHEW TABLET PO SCH ×2 (11:49→22:00)
[2018-09-24] MEDS ORDERED: INSULIN GLARGINE 300 UNIT/3 ML PEN SUBQ SCH (21:00)
[2018-09-24] MEDS: DOXAZOSIN 1 MG TABLET PO SCH (22:00)
[2018-09-24] MEDS: PRAVASTATIN 40 MG TABLET PO SCH (22:00)
[2018-09-24] MEDS: LIDOCAINE PATCH 5% TOP PRN (22:38)
[2018-09-24] MEDS: ZOLPIDEM 5 MG TABLET PO PRN (23:54)
[2018-09-25] MEDS: PHENAZOPYRIDINE 100 MG TABLET PO SCH ×3 (06:11→21:30)
[2018-09-25] MEDS: MORPHINE SOL 10 MG/0.5 ML SYRINGE PO PRN ×3 (06:17→18:13)
[2018-09-25] MEDS: MEMANTINE 5 MG TABLET PO SCH ×2 (08:20→21:30)
[2018-09-25] MEDS: DOCUSATE SODIUM 250 MG CAPSULE PO SCH (08:20)
[2018-09-25] MEDS: ASPIRIN 325 MG TABLET PO SCH (08:20)
[2018-09-25] MEDS: SACCHAROMYCES BOULARDII 250 MG CAPSULE PO SCH ×2 (08:20→17:35)
[2018-09-25] MEDS: MULTIVITAMIN TABLET PO SCH (08:21)
[2018-09-25] MEDS: SENNA 8.6 MG TABLET PO SCH (08:21)
[2018-09-25] MEDS: SERTRALINE 25 MG TABLET PO SCH (08:21)
[2018-09-25] MEDS: AMOX/CLAV 200 MG/28.5 MG CHEW TABLET PO SCH ×2 (08:22→21:29)
[2018-09-25] MEDS: FLUCONAZOLE 100 MG TABLET PO SCH ×2 (08:22→21:29)
[2018-09-25] MEDS: FERROUS SULFATE 325 MG TABLET PO SCH (08:22)
[2018-09-25] MEDS: TAMSULOSIN 0.4 MG CAPSULE PO SCH (08:22)
[2018-09-25] MEDS: INSULIN ASPART 300 UNIT/3 ML PEN SUBQ SCH ×6 (08:24→21:25)
[2018-09-25] MEDS: INSULIN GLARGINE 300 UNIT/3 ML PEN SUBQ SCH ×2 (08:25→21:39)
[2018-09-25] MEDS: SODIUM CHLORIDE FLUSH 0.9% 10 ML SYRINGE IVP SCH ×3 (08:25→23:34)
--- NOTE | 2018-09-25 13:02 | PROVIDER PROGRESS NOTE ---
Assessment/Plan - Problem List (1) Recurrent UTI Assessment/Plan: Antibiotics continue and indwelling lara was changed at admission. (2) Indwelling Lara catheter present Assessment/Plan: As above. This was needed for obstruction. (3) Aspiration pneumonia Assessment/Plan: Patient is on antibiotics and on Diflucan treatment for yeast. He had not aspirated in days, until today. Continue pureed diet. (4) Hypernatremia Assessment/Plan: Will adjust meds and iv to allow free water. (5) Multi-infarct dementia Qualifiers: Dementia behavioral disturbance: without behavioral disturbance Qualified Code(s): F01.50 - Vascular dementia without behavioral disturbance Assessment/Plan: He is now a candidate for SNF rehab for PT, SW is working on placement. Zyprexa was ordered prn behavior disturbance, not needed lately, as he is cooperative and more oriented. Namenda was started 09/19/18, which may have stabilized his sx. (6) History of CVA (cerebrovascular accident) Assessment/Plan: As above. Continue antiplatelets and cholesterol control (he is on daily ASA and Pravachol). (7) Diabetes mellitus, insulin dependent (IDDM), uncontrolled Assessment/Plan: Pt on diet and Insulin coverage. (8) Anemia Qualifiers: Anemia type: iron deficiency Assessment/Plan: Pt on Iron replacement. (9) Back pain Assessment/Plan: He is on Lidocaine patch, controls his pain. (10) Ectopic atrial rhythm Assessment/Plan: Not symptomatic from this. His telemetry was discontinued several days ago. (11) Methamphetamine abuse Assessment/Plan: He admitted that he used to use it, but this has decreased alot, and was smoking it, not iv injecting. He stated to me today that he has no plans to resume using Meth. (12) Alcohol abuse Assessment/Plan: He was on a CIWA protocol earlier this admission. Apparently he has been determined not to be an alcohol abuser, since then. (13) CKD (chronic kidney disease) stage 3, GFR 30-59 ml/min Assessment/Plan: Resolved (14) Hypomagnesemia Assessment/Plan: Resolved (15) Metabolic encephalopathy Assessment/Plan: Resolved with treatment of UTI, pneumonia, abdominal pain relief and distancing from any drug or alcohol use. - Current Meds Current Meds: Current Medications Generic Name Dose Route Start Last Admin Trade Name Freq PRN Reason Stop Dose Admin Amoxicillin/Clavulanate Potassium 4 tab 09/22/18 11:00 09/25/18 08:22 Augmentin Chew 200/28.5 PO 4 tab BID MONTY Administration Aspirin 325 mg 09/19/18 11:00 09/25/18 08:20 Jairon PO 325 mg DAILYWM MONTY Administration Docusate Sodium 250 - 500 mg 09/15/18 09:00 09/25/18 08:20 Colace 250mg Capsule PO 250 mg DAILY MONTY Administration Doxazosin Mesylate 1 mg 09/19/18 21:00 09/24/18 22:00 Cardura PO 1 mg QPM MONTY Administration Ferrous Sulfate 325 mg 09/20/18 08:00 09/25/18 08:22 Feosol PO 325 mg DAILYWM MONTY Administration Fluconazole 100 mg 09/22/18 11:00 09/25/18 08:22 Diflucan PO 100 mg BID MONTY Administration Hydralazine HCl 10 mg 09/18/18 08:08 09/18/18 11:45 Apresoline Inj IVP 10 mg Q4HR PRN Administration SBP>160 Acetaminophen 100 mls @ 400 mls/hr 09/18/18 18:10 09/24/18 18:57 Ofirmev IV Infused Q6HR PRN Infusion PAIN Insulin Aspart 3 - 11 unit 09/17/18 08:00 09/25/18 12:05 Novolog SUBQ 9 unit 0800,1200,1700,2100 MONTY Administration Protocol Insulin Glargine 12 unit 09/24/18 08:00 09/25/18 08:25 Lantus Solostar SUBQ 12 unit DAILY MONTY Administration Insulin Glargine 10 unit 09/24/18 21:00 09/24/18 22:08 Lantus Solostar SUBQ 10 unit QPM MONTY Administration Lidocaine 1 patch 09/15/18 16:37 09/24/18 22:38 Lidoderm Patch TOP 1 patch DAILY PRN Administration PAIN Lorazepam 2 mg 09/18/18 18:24 09/20/18 00:30 Ativan Inj (Vial) IVP 2 mg Q2H PRN Administration Agitation Memantine 5 mg 09/19/18 21:00 09/25/18 08:20 Namenda PO 5 mg BID MONTY Administration Morphine Sulfate 5 mg 09/22/18 00:25 09/25/18 11:03 Roxanol PO 5 mg Q2HR PRN Administration PAIN Multi-Ingredient Ointment 1 applic 09/18/18 20:40 09/20/18 10:07 Zinc Oxide TOP 09/25/18 20:39 1 applic PRN PRN Administration Skin Care Multivitamins 1 tab 09/19/18 10:00 09/25/18 08:21 Theragran PO 1 tab DAILYWM MONTY Administration Olanzapine 2.5 mg 09/21/18 15:26 09/22/18 09:06 Zyprexa Odt TL 2.5 mg TID PRN Administration psychosis/agitation Phenazopyridine HCl 100 mg 09/19/18 10:00 09/25/18 06:11 Pyridium PO 100 mg TID MONTY Administration Polyethylene Glycol 17 gm 09/22/18 10:24 09/24/18 08:12 Miralax PO 17 gm DAILY PRN Administration Constipation Pravastatin Sodium 80 mg 09/19/18 21:00 09/24/18 22:00 Pravachol PO 80 mg QPM MONTY Administration Saccharomyces Boulardii 250 mg 09/14/18 17:00 09/25/18 08:20 Florastor PO 250 mg BIDWM MONTY Administration Senna 8.6 - 17.2 mg 09/15/18 09:00 09/25/18 08:21 Senokot PO 8.6 mg DAILY MONTY Administration Sertraline HCl 12.5 mg 09/19/18 10:00 09/25/18 08:21 Zoloft PO 12.5 mg DAILY MONTY Administration Sodium Chloride 10 ml 09/14/18 08:05 09/24/18 18:57 Normal Saline Flush 0.9% IVP 10 ml PRN PRN Administration NEEDED PER PROVIDER ORDERS Sodium Chloride 10 ml 09/14/18 09:00 09/25/18 08:25 Normal Saline Flush 0.9% IVP 10 ml 0100,0900,1700 MONTY Administration Tamsulosin HCl 0.4 mg 09/20/18 09:00 09/25/18 08:22 Flomax PO 0.4 mg DAILY MONTY Administration Zolpidem Tartrate 5 mg 09/24/18 22:54 09/24/18 23:54 Ambien PO 5 mg QPM PRN Administration Insomnia - Lab Result Fish Bone Diagrams: 09/20/18 04:20 09/20/18 04:20 - Additional Planning My Orders: My Active Orders 09/25/18 12:00 Insulin Aspart [NovoLOG] 5 unit SUBQ TIDWM Subjective - Subjective Patient Reports: Feeling Better, Other (Coughing after taking a drink) Objective Vital Signs: Vital Signs - 24 hr 09/24/18 09/24/18 09/25/18 16:14 23:49 08:00 Temperature 36.6 C 37.6 C H 37.1 C Heart Rate [ 74 75 71 Brachial] Respiratory 20 20 16 Rate Blood Pressure 134/63 H 133/70 H [Left Brachial artery] Blood Pressure 140/84 H [Right Brachial artery] O2 Saturation 94 92 93 Oxygen O2 Source [With Activity] Nasal cannula O2 Source Room air I&O (Last 24 Hrs): Intake and Output Totals x24h 09/23/18 09/24/18 09/25/18 23:59 23:59 23:59 Intake Total 1180 1220 690 Output Total 2405 1275 850 Balance -1225 -55 -160 General: Alert HEENT: Mucous membr. moist/pink, Other (Disheveled) Neck: Supple Neuro: Alert, Non Focal Cardiovascular: No murmurs Respiratory: No respiratory distress, Breath sounds nml Abdomen: Soft Extremities: No edema - Results Results: Laboratory Results WBC 10.0 x10^3/uL (4.8-10.8) 09/20/18 04:20 RBC 3.40 10^6/uL (4.70-6.10) L 09/20/18 04:20 Hgb 10.2 g/dL (14.0-18.0) L 09/20/18 04:20 Hct 30.5 % (42.0-52.0) L 09/20/18 04:20 MCV 89.9 fL (80.0-94.0) 09/20/18 04:20 MCH 30.1 pg (27.0-31.0) 09/20/18 04:20 MCHC 33.5 g/dL (32.0-36.0) 09/20/18 04:20 RDW 14.7 % (12.0-15.0) 09/20/18 04:20 Plt Count 276 10^3/uL (130-450) 09/20/18 04:20 MPV 8.8 fL (7.4-11.4) 09/20/18 04:20 Neut # (Auto) 7.2 10^3/uL (1.5-6.6) H 09/20/18 04:20 Lymph # (Auto) 1.6 10^3/uL (1.5-3.5) 09/20/18 04:20 [place] # (Auto) 0.7 10^3/uL (0.0-1.0) 09/20/18 04:20 Eos # (Auto) 0.4 10^3/uL (0.0-0.7) 09/20/18 04:20 Baso # (Auto) 0.1 10^3/uL (0.0-0.1) 09/20/18 04:20 Absolute Nucleated RBC 0.01 x10^3/uL 09/20/18 04:20 Nucleated RBC % 0.1 /100WBC 09/20/18 04:20 PT 13.2 secs (9.9-12.6) H 09/14/18 08:47 INR 1.2 (0.8-1.2) 09/14/18 08:47 Sodium 147 mmol/L (135-145) H 09/20/18 04:20 Potassium 3.5 mmol/L (3.5-5.0) 09/20/18 04:20 Chloride 111 mmol/L (101-111) 09/20/18 04:20 Carbon Dioxide 27 mmol/L (21-32) 09/20/18 04:20 Anion Gap 9.0 (6-13) 09/20/18 04:20 BUN 16 mg/dL (6-20) 09/20/18 04:20 Creatinine 1.1 mg/dL (0.6-1.2) 09/20/18 04:20 Estimated GFR (MDRD) 67 (>89) L 09/20/18 04:20 Glucose 227 mg/dL (70-100) H 09/20/18 04:20 POC Whole Bld Glucose 313 mg/dL (70 - 100) H 09/25/18 11:28 Glycated Hemoglobin 10.0 % (4.6-6.2) H 09/14/18 08:47 Estim Average Glucose 240 (70-100) H 09/14/18 08:47 Calcium 9.0 mg/dL (8.5-10.3) 09/20/18 04:20 Phosphorus 2.8 mg/dL (2.5-4.6) 09/20/18 04:20 Magnesium 1.8 mg/dL (1.7-2.8) 09/18/18 04:52 Iron 16 ug/dL (45-182) L 09/17/18 05:15 TIBC 160 ug/dL (250-450) L 09/17/18 05:15 % Saturation 10 % (20-50) L 09/17/18 05:15 Transferrin 114 mg/dL (180-329) L 09/17/18 05:15 Total Bilirubin 0.8 mg/dL (0.2-1.0) 09/19/18 04:55 AST 27 IU/L (10-42) 09/19/18 04:55 ALT 25 IU/L (10-60) 09/19/18 04:55 Alkaline Phosphatase 103 IU/L (42-121) 09/19/18 04:55 Troponin I < 0.04 ng/mL (<0.49) 09/14/18 19:49 Total Protein 6.7 g/dL (6.7-8.2) 09/19/18 04:55 Albumin 2.2 g/dL (3.2-5.5) L 09/20/18 04:20 Globulin 4.4 g/dL (2.1-4.2) H 09/19/18 04:55 Albumin/Globulin Ratio 0.5 (1.0-2.2) L 09/19/18 04:55 Lipase 35 U/L (22-51) 09/13/18 21:36 Vitamin B12 1110 pg/mL (180-914) H 09/17/18 05:15 Folate 21.00 ng/mL (5.90 - >24.8) 09/17/18 05:15 Urine Color YELLOW 09/14/18 09:30 Urine Clarity CLOUDY (CLEAR) 09/14/18 09:30 Urine pH 6.0 PH (5.0-7.5) 09/14/18 09:30 Ur Specific [place] 1.010 (1.002-1.030) 09/14/18 09:30 Urine Protein TRACE mg/dL (NEGATIVE) 09/14/18 09:30 Urine Glucose (UA) 100 mg/dL (NEGATIVE) H 09/14/18 09:30 Urine Ketones NEGATIVE mg/dL (NEGATIVE) 09/14/18 09:30 Urine Occult Blood TRACE-INTA (NEGATIVE) 09/14/18 09:30 Urine Nitrite NEGATIVE (NEGATIVE) 09/14/18 09:30 Urine Bilirubin NEGATIVE (NEGATIVE) 09/14/18 09:30 Urine Urobilinogen 0.2 (NORMAL) E.U./dL (NORMAL) 09/14/18 09:30 Ur Leukocyte Esterase SMALL (NEGATIVE) H 09/14/18 09:30 Urine RBC 0-5 /HPF (0-5) 09/14/18 09:30 Urine WBC 11-25 /HPF (0-3) H 09/14/18 09:30 Ur Squamous Epith Cells FEW Squamous (<= Few) 09/14/18 09:30 Urine Bacteria Many /HPF (None Seen) H 09/14/18 09:30 Urine Yeast PRESENT 09/14/18 09:30 Ur Microscopic Review INDICATED 09/13/18 22:12 Urine Culture Comments INDICATED 09/14/18 09:30 Urine Opiates Screen POSITIVE (NEGATIVE) H 09/18/18 08:59 Ur Oxycodone Screen NEGATIVE (NEGATIVE) 09/18/18 08:59 Urine Methadone Screen NEGATIVE (NEGATIVE) 09/18/18 08:59 Ur Propoxyphene Screen NEGATIVE (NEGATIVE) 09/18/18 08:59 Ur Barbiturates Screen NEGATIVE (NEGATIVE) 09/18/18 08:59 Ur Tricyclics Screen NEGATIVE (NEGATIVE) 09/18/18 08:59 Ur Phencyclidine Scrn NEGATIVE (NEGATIVE) 09/18/18 08:59 Ur Amphetamine Screen NEGATIVE (NEGATIVE) 09/18/18 08:59 U Methamphetamines Scrn NEGATIVE (NEGATIVE) 09/18/18 08:59 U Benzodiazepines Scrn POSITIVE (NEGATIVE) H 09/18/18 08:59 Urine Cocaine Screen NEGATIVE (NEGATIVE) 09/18/18 08:59 U Cannabinoids Screen NEGATIVE (NEGATIVE) 09/18/18 08:59 Serum Ketones NEGATIVE (NEGATIVE) 09/13/18 21:36
[2018-09-25] MEDS: DOXAZOSIN 1 MG TABLET PO SCH (21:29)
[2018-09-25] MEDS: PRAVASTATIN 40 MG TABLET PO SCH (21:29)
[2018-09-25] MEDS: ZOLPIDEM 5 MG TABLET PO PRN (23:34)
[2018-09-26] MEDS: MORPHINE SOL 10 MG/0.5 ML SYRINGE PO PRN ×2 (05:26→19:36)
[2018-09-26] MEDS: PHENAZOPYRIDINE 100 MG TABLET PO SCH ×3 (05:29→21:14)
[2018-09-26] MEDS: AMOX/CLAV 200 MG/28.5 MG CHEW TABLET PO SCH (08:34)
[2018-09-26] MEDS: SERTRALINE 25 MG TABLET PO SCH (08:34)
[2018-09-26] MEDS: FERROUS SULFATE 325 MG TABLET PO SCH (08:34)
[2018-09-26] MEDS: MULTIVITAMIN TABLET PO SCH (08:35)
[2018-09-26] MEDS: MEMANTINE 5 MG TABLET PO SCH ×2 (08:35→21:14)
[2018-09-26] MEDS: DOCUSATE SODIUM 250 MG CAPSULE PO SCH (08:35)
[2018-09-26] MEDS: SENNA 8.6 MG TABLET PO SCH (08:35)
[2018-09-26] MEDS: FLUCONAZOLE 100 MG TABLET PO SCH (08:35)
[2018-09-26] MEDS: SACCHAROMYCES BOULARDII 250 MG CAPSULE PO SCH ×2 (08:36→16:32)
[2018-09-26] MEDS: SODIUM CHLORIDE FLUSH 0.9% 10 ML SYRINGE IVP SCH ×2 (08:36→16:32)
[2018-09-26] MEDS: TAMSULOSIN 0.4 MG CAPSULE PO SCH (08:36)
[2018-09-26] MEDS: ASPIRIN 325 MG TABLET PO SCH (08:36)
[2018-09-26] MEDS: INSULIN ASPART 300 UNIT/3 ML PEN SUBQ SCH ×7 (08:38→21:15)
[2018-09-26] MEDS: INSULIN GLARGINE 300 UNIT/3 ML PEN SUBQ SCH ×2 (08:39→21:15)
--- NOTE | 2018-09-26 14:27 | PROVIDER PROGRESS NOTE ---
Assessment/Plan - Problem List (1) Multi-infarct dementia Qualifiers: Dementia behavioral disturbance: without behavioral disturbance Qualified Code(s): F01.50 - Vascular dementia without behavioral disturbance Assessment/Plan: The patient is cooperative and able to perform ADLs and feed himself, now progressing with walking. He would benefit from PT and OT rehab at a SNF. (2) Diabetes mellitus, insulin dependent (IDDM), uncontrolled Assessment/Plan: Stable on current diet and Insulin dosing (3) Indwelling Bryant catheter present Assessment/Plan: Chronic, due to prostatic obstruction. Urology management will still be needed. (4) History of CVA (cerebrovascular accident) Assessment/Plan: He has intermittent R foot weakness, better today, was able to walk with a normal gait. (5) Anemia Qualifiers: Anemia type: iron deficiency Assessment/Plan: Continue Iron replacement. (6) Back pain Assessment/Plan: Continue pain management. (7) Recurrent UTI Assessment/Plan: Resolved. Antibiotics are done. (8) Aspiration pneumonia Assessment/Plan: Antibiotics will be stopped today, he completed a course of >10 days. (9) Ectopic atrial rhythm Assessment/Plan: Stable/not on telemetry any longer. (10) Methamphetamine abuse Assessment/Plan: Patient reported no plan ti use Meth any longer. His sister, his DPOA, has a list of individuals who may not visit the patient. (11) CKD (chronic kidney disease) stage 3, GFR 30-59 ml/min Assessment/Plan: resolved (12) Hypomagnesemia Assessment/Plan: Resolved (13) Metabolic encephalopathy Assessment/Plan: Resolved (14) Hypernatremia Assessment/Plan: Resolved - Current Meds Current Meds: Current Medications Generic Name Dose Route Start Last Admin Trade Name Margaritoq PRN Reason Stop Dose Admin Aspirin 325 mg 09/19/18 11:00 09/26/18 08:36 Jairon PO 325 mg DAILYWM MONTY Administration Docusate Sodium 250 - 500 mg 09/15/18 09:00 09/26/18 08:35 Colace 250mg Capsule PO 250 mg DAILY MONTY Administration Doxazosin Mesylate 1 mg 09/19/18 21:00 09/25/18 21:29 Cardura PO 1 mg QPM MONTY Administration Ferrous Sulfate 325 mg 09/20/18 08:00 09/26/18 08:34 Feosol PO 325 mg DAILYWM MONTY Administration Insulin Aspart 3 - 11 unit 09/17/18 08:00 09/26/18 11:36 Novolog SUBQ 5 unit 0800,1200,1700,2100 MONTY Administration Protocol Insulin Aspart 5 unit 09/25/18 12:00 09/26/18 11:39 Novolog SUBQ 5 unit TIDWM MONTY Administration Protocol Insulin Glargine 12 unit 09/24/18 08:00 09/26/18 08:39 Lantus Solostar SUBQ 12 unit DAILY MONTY Administration Insulin Glargine 10 unit 09/24/18 21:00 09/25/18 21:39 Lantus Solostar SUBQ 10 unit QPM MONTY Administration Lidocaine 1 patch 09/15/18 16:37 09/24/18 22:38 Lidoderm Patch TOP 1 patch DAILY PRN Administration PAIN Lorazepam 2 mg 09/18/18 18:24 09/20/18 00:30 Ativan Inj (Vial) IVP 2 mg Q2H PRN Administration Agitation Memantine 5 mg 09/19/18 21:00 09/26/18 08:35 Namenda PO 5 mg BID MONTY Administration Morphine Sulfate 5 mg 09/22/18 00:25 09/26/18 05:26 Roxanol PO 5 mg Q2HR PRN Administration PAIN Multivitamins 1 tab 09/19/18 10:00 09/26/18 08:35 Theragran PO 1 tab DAILYWM MONTY Administration Phenazopyridine HCl 100 mg 09/19/18 10:00 09/26/18 05:29 Pyridium PO 100 mg TID MONTY Administration Polyethylene Glycol 17 gm 09/22/18 10:24 09/24/18 08:12 Miralax PO 17 gm DAILY PRN Administration Constipation Pravastatin Sodium 80 mg 09/19/18 21:00 09/25/18 21:29 Pravachol PO 80 mg QPM MONTY Administration Saccharomyces Boulardii 250 mg 09/14/18 17:00 09/26/18 08:36 Florastor PO 09/27/18 10:00 250 mg BIDWM MONTY Administration Senna 8.6 - 17.2 mg 09/15/18 09:00 09/26/18 08:35 Senokot PO 8.6 mg DAILY MONTY Administration Sertraline HCl 12.5 mg 09/19/18 10:00 09/26/18 08:34 Zoloft PO 12.5 mg DAILY MONTY Administration Sodium Chloride 10 ml 09/14/18 08:05 09/24/18 18:57 Normal Saline Flush 0.9% IVP 10 ml PRN PRN Administration NEEDED PER PROVIDER ORDERS Sodium Chloride 10 ml 09/14/18 09:00 09/26/18 08:36 Normal Saline Flush 0.9% IVP 10 ml 0100,0900,1700 MONTY Administration Tamsulosin HCl 0.4 mg 09/20/18 09:00 09/26/18 08:36 Flomax PO 0.4 mg DAILY MONTY Administration Zolpidem Tartrate 5 mg 09/24/18 22:54 09/25/18 23:34 Ambien PO 5 mg QPM PRN Administration Insomnia - Lab Result Fish Bone Diagrams: 09/20/18 04:20 09/20/18 04:20 Subjective - Subjective Patient Reports: No Complaints Nursing Reports: Other (Able to walk with PT, uses a walker) Objective Vital Signs: Vital Signs - 24 hr 09/25/18 09/25/18 09/26/18 16:00 23:26 08:00 Temperature 36.7 C 37.2 C 36.8 C Heart Rate [ 89 89 68 Brachial] Respiratory 20 20 16 Rate Blood Pressure 154/82 H 145/84 H 133/65 H [Left Brachial artery] O2 Saturation 94 92 92 Oxygen O2 Source [With Activity] Nasal cannula O2 Source Room air I&O (Last 24 Hrs): Intake and Output Totals x24h 09/24/18 09/25/18 09/26/18 23:59 23:59 23:59 Intake Total 1220 1590 650 Output Total 1275 2400 1300 Balance -55 -810 -650 General: Alert HEENT: Mucous membr. moist/pink Neck: Supple Neuro: Alert, Non Focal Cardiovascular: No murmurs Respiratory: No respiratory distress, Breath sounds nml Abdomen: Soft Extremities: No edema - Results Results: Laboratory Results WBC 10.0 x10^3/uL (4.8-10.8) 09/20/18 04:20 RBC 3.40 10^6/uL (4.70-6.10) L 09/20/18 04:20 Hgb 10.2 g/dL (14.0-18.0) L 09/20/18 04:20 Hct 30.5 % (42.0-52.0) L 09/20/18 04:20 MCV 89.9 fL (80.0-94.0) 09/20/18 04:20 MCH 30.1 pg (27.0-31.0) 09/20/18 04:20 MCHC 33.5 g/dL (32.0-36.0) 09/20/18 04:20 RDW 14.7 % (12.0-15.0) 09/20/18 04:20 Plt Count 276 10^3/uL (130-450) 09/20/18 04:20 MPV 8.8 fL (7.4-11.4) 09/20/18 04:20 Neut # (Auto) 7.2 10^3/uL (1.5-6.6) H 09/20/18 04:20 Lymph # (Auto) 1.6 10^3/uL (1.5-3.5) 09/20/18 04:20 [place] # (Auto) 0.7 10^3/uL (0.0-1.0) 09/20/18 04:20 Eos # (Auto) 0.4 10^3/uL (0.0-0.7) 09/20/18 04:20 Baso # (Auto) 0.1 10^3/uL (0.0-0.1) 09/20/18 04:20 Absolute Nucleated RBC 0.01 x10^3/uL 09/20/18 04:20 Nucleated RBC % 0.1 /100WBC 09/20/18 04:20 PT 13.2 secs (9.9-12.6) H 09/14/18 08:47 INR 1.2 (0.8-1.2) 09/14/18 08:47 Sodium 147 mmol/L (135-145) H 09/20/18 04:20 Potassium 3.5 mmol/L (3.5-5.0) 09/20/18 04:20 Chloride 111 mmol/L (101-111) 09/20/18 04:20 Carbon Dioxide 27 mmol/L (21-32) 09/20/18 04:20 Anion Gap 9.0 (6-13) 09/20/18 04:20 BUN 16 mg/dL (6-20) 09/20/18 04:20 Creatinine 1.1 mg/dL (0.6-1.2) 09/20/18 04:20 Estimated GFR (MDRD) 67 (>89) L 09/20/18 04:20 Glucose 227 mg/dL (70-100) H 09/20/18 04:20 POC Whole Bld Glucose 202 mg/dL (70 - 100) H 09/26/18 11:21 Glycated Hemoglobin 10.0 % (4.6-6.2) H 09/14/18 08:47 Estim Average Glucose 240 (70-100) H 09/14/18 08:47 Calcium 9.0 mg/dL (8.5-10.3) 09/20/18 04:20 Phosphorus 2.8 mg/dL (2.5-4.6) 09/20/18 04:20 Magnesium 1.8 mg/dL (1.7-2.8) 09/18/18 04:52 Iron 16 ug/dL (45-182) L 09/17/18 05:15 TIBC 160 ug/dL (250-450) L 09/17/18 05:15 % Saturation 10 % (20-50) L 09/17/18 05:15 Transferrin 114 mg/dL (180-329) L 09/17/18 05:15 Total Bilirubin 0.8 mg/dL (0.2-1.0) 09/19/18 04:55 AST 27 IU/L (10-42) 09/19/18 04:55 ALT 25 IU/L (10-60) 09/19/18 04:55 Alkaline Phosphatase 103 IU/L (42-121) 09/19/18 04:55 Troponin I < 0.04 ng/mL (<0.49) 09/14/18 19:49 Total Protein 6.7 g/dL (6.7-8.2) 09/19/18 04:55 Albumin 2.2 g/dL (3.2-5.5) L 09/20/18 04:20 Globulin 4.4 g/dL (2.1-4.2) H 09/19/18 04:55 Albumin/Globulin Ratio 0.5 (1.0-2.2) L 09/19/18 04:55 Lipase 35 U/L (22-51) 09/13/18 21:36 Vitamin B12 1110 pg/mL (180-914) H 09/17/18 05:15 Folate 21.00 ng/mL (5.90 - >24.8) 09/17/18 05:15 Urine Color YELLOW 09/14/18 09:30 Urine Clarity CLOUDY (CLEAR) 09/14/18 09:30 Urine pH 6.0 PH (5.0-7.5) 09/14/18 09:30 Ur Specific [place] 1.010 (1.002-1.030) 09/14/18 09:30 Urine Protein TRACE mg/dL (NEGATIVE) 09/14/18 09:30 Urine Glucose (UA) 100 mg/dL (NEGATIVE) H 09/14/18 09:30 Urine Ketones NEGATIVE mg/dL (NEGATIVE) 09/14/18 09:30 Urine Occult Blood TRACE-INTA (NEGATIVE) 09/14/18 09:30 Urine Nitrite NEGATIVE (NEGATIVE) 09/14/18 09:30 Urine Bilirubin NEGATIVE (NEGATIVE) 09/14/18 09:30 Urine Urobilinogen 0.2 (NORMAL) E.U./dL (NORMAL) 09/14/18 09:30 Ur Leukocyte Esterase SMALL (NEGATIVE) H 09/14/18 09:30 Urine RBC 0-5 /HPF (0-5) 09/14/18 09:30 Urine WBC 11-25 /HPF (0-3) H 09/14/18 09:30 Ur Squamous Epith Cells FEW Squamous (<= Few) 09/14/18 09:30 Urine Bacteria Many /HPF (None Seen) H 09/14/18 09:30 Urine Yeast PRESENT 09/14/18 09:30 Ur Microscopic Review INDICATED 09/13/18 22:12 Urine Culture Comments INDICATED 09/14/18 09:30 Urine Opiates Screen POSITIVE (NEGATIVE) H 09/18/18 08:59 Ur Oxycodone Screen NEGATIVE (NEGATIVE) 09/18/18 08:59 Urine Methadone Screen NEGATIVE (NEGATIVE) 09/18/18 08:59 Ur Propoxyphene Screen NEGATIVE (NEGATIVE) 09/18/18 08:59 Ur Barbiturates Screen NEGATIVE (NEGATIVE) 09/18/18 08:59 Ur Tricyclics Screen NEGATIVE (NEGATIVE) 09/18/18 08:59 Ur Phencyclidine Scrn NEGATIVE (NEGATIVE) 09/18/18 08:59 Ur Amphetamine Screen NEGATIVE (NEGATIVE) 09/18/18 08:59 U Methamphetamines Scrn NEGATIVE (NEGATIVE) 09/18/18 08:59 U Benzodiazepines Scrn POSITIVE (NEGATIVE) H 09/18/18 08:59 Urine Cocaine Screen NEGATIVE (NEGATIVE) 09/18/18 08:59 U Cannabinoids Screen NEGATIVE (NEGATIVE) 09/18/18 08:59 Serum Ketones NEGATIVE (NEGATIVE) 09/13/18 21:36
[2018-09-26] MEDS: DOXAZOSIN 1 MG TABLET PO SCH (21:13)
[2018-09-26] MEDS: PRAVASTATIN 40 MG TABLET PO SCH (21:14)
[2018-09-26] MEDS: CALCIUM CARBONATE CHEW 500 MG TABLET PO SCH (21:33)
[2018-09-27] MEDS: ZOLPIDEM 5 MG TABLET PO PRN ×2 (00:23→22:04)
[2018-09-27] MEDS: SODIUM CHLORIDE FLUSH 0.9% 10 ML SYRINGE IVP SCH ×4 (00:23→23:36)
[2018-09-27] MEDS: MORPHINE SOL 10 MG/0.5 ML SYRINGE PO PRN ×2 (01:48→18:49)
[2018-09-27] MEDS: CALCIUM CARBONATE CHEW 500 MG TABLET PO SCH ×3 (05:31→21:58)
[2018-09-27] MEDS: PHENAZOPYRIDINE 100 MG TABLET PO SCH ×3 (05:31→21:58)
[2018-09-27] MEDS: MULTIVITAMIN TABLET PO SCH (08:03)
[2018-09-27] MEDS: ASPIRIN 325 MG TABLET PO SCH (08:03)
[2018-09-27] MEDS: DOCUSATE SODIUM 250 MG CAPSULE PO SCH (08:03)
[2018-09-27] MEDS: SACCHAROMYCES BOULARDII 250 MG CAPSULE PO SCH (08:03)
[2018-09-27] MEDS: FERROUS SULFATE 325 MG TABLET PO SCH (08:03)
[2018-09-27] MEDS: MEMANTINE 5 MG TABLET PO SCH ×2 (08:04→20:54)
[2018-09-27] MEDS: TAMSULOSIN 0.4 MG CAPSULE PO SCH (08:04)
[2018-09-27] MEDS: SENNA 8.6 MG TABLET PO SCH (08:04)
[2018-09-27] MEDS: SERTRALINE 25 MG TABLET PO SCH (08:04)
[2018-09-27] MEDS: INSULIN ASPART 300 UNIT/3 ML PEN SUBQ SCH ×7 (08:11→21:00)
[2018-09-27] MEDS: INSULIN GLARGINE 300 UNIT/3 ML PEN SUBQ SCH ×2 (08:12→21:02)
[2018-09-27] MEDS: LIDOCAINE PATCH 5% TOP PRN (09:51)
[2018-09-27] MEDS ORDERED: IOVERSOL 320 50 ML VIAL ONE (12:03)
[2018-09-27] MEDS ORDERED: IOVERSOL 320 100 ML VIAL IVP ONE ×2 (12:03→14:41)
[2018-09-27] MEDS ORDERED: IOVERSOL 320 50 ML VIAL PO ONE (14:41)
--- NOTE | 2018-09-27 14:52 | CT Report ---
Reason: food regurgitates stool incontinent Procedure Date: 09/27/2018 Accession Number: [id number] / [id number] Procedure: CT - Abdomen/Pelvis W CPT Code: FULL RESULT: EXAM: CT ABDOMEN AND PELVIS EXAM DATE: 09/27/2018 02:08 PM. CLINICAL HISTORY: Food regurgitates. Stool incontinent. Recent stroke. COMPARISONS: ABDOMEN/PELVIS W/O 09/18/2018 6:39 PM. ABDOMEN/PELVIS W/ 09/13/2018 10:36 PM. TECHNIQUE: Routine helical CT imaging was performed through the abdomen and pelvis. IV contrast: 100 mL Optiray 320. Enteric contrast: Yes. Reconstructions: Coronal and sagittal. In accordance with CT protocol optimization, one or more of the following dose reduction techniques were utilized for this exam: automated exposure control, adjustment of mA and/or KV based on patient size, or use of iterative reconstructive technique. FINDINGS: Lung Bases: As seen 09/18/2018, there is a loculated right pleural effusion, incompletely visualized. Trace pleural effusion is again noted on the left, decreased compared to before. A small amount of linear consolidation is also seen at the right lung base, decreased compared to prior. Stomach, gastroesophageal junction and visualized esophagus: Oral contrast/oral gastric content is seen within visualized portions of the esophagus. Oral contrast is also seen within the stomach and proximal small bowel. There is a small sliding hiatal hernia. Liver: Normal. No masses. Gallbladder/Bile Ducts: Unremarkable. Spleen: Normal. Pancreas: Normal. Adrenal Glands: Normal. Kidneys and genitourinary system: The right kidney appears normal. The upper pole of the left kidney demonstrates heterogeneous appearance and decreased enhancement as well as a hypodense lesion which was also visible on the previous noncontrast CT. Evaluation of this finding is limited by motion artifact. The left ureter is dilated throughout its course and mucosa is hyperenhancing. The wall of the bladder is markedly thickened and a Bryant catheter is seen within. These findings are similar to the 09/13/2018 CT. Peritoneal Cavity/Bowel: Sigmoid diverticulosis. No bowel obstruction. No free fluid, free air or adenopathy. Pelvic Organs: No pelvic lymphadenopathy. Vasculature: No aneurysms or other significant abnormality. Bones: No significant abnormality. Other: None. IMPRESSION: Orogastric content within the esophagus in the setting of a small sliding hiatal hernia. Abnormal appearance of the upper pole of the left kidney, limited evaluation due to motion. Differential diagnosis includes focal pyelonephritis as well as benign or malignant masses. The persistent abnormal appearance of the left ureter and bladder warrants further workup. Recommend urologic evaluation with consideration of cystoscopy. RADIA
--- NOTE | 2018-09-27 17:09 | PROVIDER PROGRESS NOTE ---
Assessment/Plan - Problem List (1) Multi-infarct dementia Qualifiers: Dementia behavioral disturbance: without behavioral disturbance Qualified Code(s): F01.50 - Vascular dementia without behavioral disturbance Assessment/Plan: Slow improvement in activity and speech and memory. He cooperates with PT. I spoke to patient, with sister and son at his bedside, regarding where he should be DCh to: SW is trying to get a SNF to accept him for PT rehab, possibly Speech Therapy as well, for swallowing. (2) Diabetes mellitus, insulin dependent (IDDM), uncontrolled Assessment/Plan: On carb-controlled diet and ss Insulin. (3) Indwelling Bryant catheter present Assessment/Plan: He still needs Urology appointment regarding prostatic urinary tract obstruction. (4) History of CVA (cerebrovascular accident) Assessment/Plan: Speech Therapy re-saw pt today, regarding possibility of advancing diet from pureed. She OKd Mac&Cheese and canned peaches, but remain on pureed diet. (5) Back pain Assessment/Plan: LBP is controlled. He also has rib cage area pain and he thinks it is a pulled muscle fom doing rehab. Lidocaine patch prn. (6) Recurrent UTI Assessment/Plan: Finishe UTI treatment. (7) Aspiration pneumonia Assessment/Plan: Finished antibiotics. (8) Iron deficiency anemia Assessment/Plan: Pt on oral Iron replacement, started here. (9) Methamphetamine abuse Assessment/Plan: Patient voiced a plan to not use Meth any more. (10) Metabolic encephalopathy Assessment/Plan: It appears that he gets this when he has an infection, as per his sister. Resolved very slowly on this admission. (11) Hypernatremia Assessment/Plan: Allow free-water. Follow BMP daily. - Current Meds Current Meds: Current Medications Generic Name Dose Route Start Last Admin Trade Name Freq PRN Reason Stop Dose Admin Aspirin 325 mg 09/19/18 11:00 09/27/18 08:03 Jairon PO 325 mg DAILYWM MONTY Administration Calcium Carbonate/Glycine 500 mg 09/26/18 22:00 09/27/18 14:26 Tums PO 500 mg TID MONTY Administration Docusate Sodium 250 - 500 mg 09/15/18 09:00 09/27/18 08:03 Colace 250mg Capsule PO 500 mg DAILY MONTY Administration Doxazosin Mesylate 1 mg 09/19/18 21:00 09/26/18 21:13 Cardura PO 1 mg QPM MONTY Administration Ferrous Sulfate 325 mg 09/20/18 08:00 09/27/18 08:03 Feosol PO 325 mg DAILYWM MONTY Administration Insulin Aspart 3 - 11 unit 09/17/18 08:00 09/27/18 12:11 Novolog SUBQ 7 unit 0800,1200,1700,2100 MONTY Administration Protocol Insulin Aspart 8 unit 09/27/18 12:00 09/27/18 12:11 Novolog SUBQ 8 unit TIDWM MONTY Administration Protocol Insulin Glargine 12 unit 09/24/18 08:00 09/27/18 08:12 Lantus Solostar SUBQ 12 unit DAILY MONTY Administration Insulin Glargine 10 unit 09/24/18 21:00 09/26/18 21:15 Lantus Solostar SUBQ 10 unit QPM MONTY Administration Lidocaine 1 patch 09/15/18 16:37 09/27/18 09:51 Lidoderm Patch TOP 1 patch DAILY PRN Administration PAIN Lorazepam 2 mg 09/18/18 18:24 09/20/18 00:30 Ativan Inj (Vial) IVP 2 mg Q2H PRN Administration Agitation Memantine 5 mg 09/19/18 21:00 09/27/18 08:04 Namenda PO 5 mg BID MONTY Administration Morphine Sulfate 5 mg 09/22/18 00:25 09/27/18 01:48 Roxanol PO 5 mg Q2HR PRN Administration PAIN Multivitamins 1 tab 09/19/18 10:00 09/27/18 08:03 Theragran PO 1 tab DAILYWM MONTY Administration Phenazopyridine HCl 100 mg 09/19/18 10:00 09/27/18 14:25 Pyridium PO 100 mg TID MONTY Administration Polyethylene Glycol 17 gm 09/22/18 10:24 09/24/18 08:12 Miralax PO 17 gm DAILY PRN Administration Constipation Pravastatin Sodium 80 mg 09/19/18 21:00 09/26/18 21:14 Pravachol PO 80 mg QPM MONTY Administration Senna 8.6 - 17.2 mg 09/15/18 09:00 09/27/18 08:04 Senokot PO 17.2 mg DAILY MONTY Administration Sertraline HCl 12.5 mg 09/19/18 10:00 09/27/18 08:04 Zoloft PO 12.5 mg DAILY MONTY Administration Sodium Chloride 10 ml 09/14/18 08:05 09/24/18 18:57 Normal Saline Flush 0.9% IVP 10 ml PRN PRN Administration NEEDED PER PROVIDER ORDERS Sodium Chloride 10 ml 09/14/18 09:00 09/27/18 08:07 Normal Saline Flush 0.9% IVP 10 ml 0100,0900,1700 MONTY Administration Tamsulosin HCl 0.4 mg 09/20/18 09:00 09/27/18 08:04 Flomax PO 0.4 mg DAILY MONTY Administration Zolpidem Tartrate 5 mg 09/24/18 22:54 09/27/18 00:23 Ambien PO 5 mg QPM PRN Administration Insomnia - Lab Result Fish Bone Diagrams: 09/20/18 04:20 09/20/18 04:20 - Additional Planning My Orders: My Active Orders 09/27/18 10:44 Postural [Vital Signs - Orthostatic] [RC] DAILY 09/27/18 12:00 Insulin Aspart [NovoLOG] 8 unit SUBQ TIDWM 09/27/18 Dinner Dysphagia Puree Diet [DIET] Subjective - Subjective Patient Reports: Feeling Better, No Complaints Objective Vital Signs: Vital Signs - 24 hr 09/27/18 09/27/18 09/27/18 00:00 07:19 10:50 Temperature 36.8 C 37.0 C Heart Rate [ 82 66 Brachial] Heart Rate [ 88 Sitting (After 1 Minute)] Heart Rate [ 102 H Standing (After 1 Minute)] Heart Rate [ 72 Supine] Respiratory 18 18 Rate Blood Pressure 120/82 H [Left Brachial artery] Blood Pressure 145/80 H [Right Brachial artery] Blood Pressure 133/91 H [Sitting (After 1 Minute)] Blood Pressure 127/88 H [Standing ( After 1 Minute) ] Blood Pressure 137/80 H [Supine] O2 Saturation 94 92 Oxygen O2 Source [With Activity] Nasal cannula O2 Source Room air I&O (Last 24 Hrs): Intake and Output Totals x24h 09/25/18 09/26/18 09/27/18 23:59 23:59 23:59 Intake Total 1590 1200 520 Output Total 2400 2550 1700 Balance -810 -1350 -1180 General: Alert, Oriented x3, Other (Disheveled.) HEENT: Mucous membr. moist/pink, Other (Edentulous) Neck: Supple, No JVD Neuro: Non Focal, Other (Speech normal, memory is better.) Cardiovascular: Regular rate Respiratory: No respiratory distress Abdomen: Soft Extremities: No edema - Results Results: Laboratory Results WBC 10.0 x10^3/uL (4.8-10.8) 09/20/18 04:20 RBC 3.40 10^6/uL (4.70-6.10) L 09/20/18 04:20 Hgb 10.2 g/dL (14.0-18.0) L 09/20/18 04:20 Hct 30.5 % (42.0-52.0) L 09/20/18 04:20 MCV 89.9 fL (80.0-94.0) 09/20/18 04:20 MCH 30.1 pg (27.0-31.0) 09/20/18 04:20 MCHC 33.5 g/dL (32.0-36.0) 09/20/18 04:20 RDW 14.7 % (12.0-15.0) 09/20/18 04:20 Plt Count 276 10^3/uL (130-450) 09/20/18 04:20 MPV 8.8 fL (7.4-11.4) 09/20/18 04:20 Neut # (Auto) 7.2 10^3/uL (1.5-6.6) H 09/20/18 04:20 Lymph # (Auto) 1.6 10^3/uL (1.5-3.5) 09/20/18 04:20 [place] # (Auto) 0.7 10^3/uL (0.0-1.0) 09/20/18 04:20 Eos # (Auto) 0.4 10^3/uL (0.0-0.7) 09/20/18 04:20 Baso # (Auto) 0.1 10^3/uL (0.0-0.1) 09/20/18 04:20 Absolute Nucleated RBC 0.01 x10^3/uL 09/20/18 04:20 Nucleated RBC % 0.1 /100WBC 09/20/18 04:20 PT 13.2 secs (9.9-12.6) H 09/14/18 08:47 INR 1.2 (0.8-1.2) 09/14/18 08:47 Sodium 147 mmol/L (135-145) H 09/20/18 04:20 Potassium 3.5 mmol/L (3.5-5.0) 09/20/18 04:20 Chloride 111 mmol/L (101-111) 09/20/18 04:20 Carbon Dioxide 27 mmol/L (21-32) 09/20/18 04:20 Anion Gap 9.0 (6-13) 09/20/18 04:20 BUN 16 mg/dL (6-20) 09/20/18 04:20 Creatinine 1.1 mg/dL (0.6-1.2) 09/20/18 04:20 Estimated GFR (MDRD) 67 (>89) L 09/20/18 04:20 Glucose 227 mg/dL (70-100) H 09/20/18 04:20 POC Whole Bld Glucose 230 mg/dL (70 - 100) H 09/27/18 11:29 Glycated Hemoglobin 10.0 % (4.6-6.2) H 09/14/18 08:47 Estim Average Glucose 240 (70-100) H 09/14/18 08:47 Calcium 9.0 mg/dL (8.5-10.3) 09/20/18 04:20 Phosphorus 2.8 mg/dL (2.5-4.6) 09/20/18 04:20 Magnesium 1.8 mg/dL (1.7-2.8) 09/18/18 04:52 Iron 16 ug/dL (45-182) L 09/17/18 05:15 TIBC 160 ug/dL (250-450) L 09/17/18 05:15 % Saturation 10 % (20-50) L 09/17/18 05:15 Transferrin 114 mg/dL (180-329) L 09/17/18 05:15 Total Bilirubin 0.8 mg/dL (0.2-1.0) 09/19/18 04:55 AST 27 IU/L (10-42) 09/19/18 04:55 ALT 25 IU/L (10-60) 09/19/18 04:55 Alkaline Phosphatase 103 IU/L (42-121) 09/19/18 04:55 Troponin I < 0.04 ng/mL (<0.49) 09/14/18 19:49 Total Protein 6.7 g/dL (6.7-8.2) 09/19/18 04:55 Albumin 2.2 g/dL (3.2-5.5) L 09/20/18 04:20 Globulin 4.4 g/dL (2.1-4.2) H 09/19/18 04:55 Albumin/Globulin Ratio 0.5 (1.0-2.2) L 09/19/18 04:55 Lipase 35 U/L (22-51) 09/13/18 21:36 Vitamin B12 1110 pg/mL (180-914) H 09/17/18 05:15 Folate 21.00 ng/mL (5.90 - >24.8) 09/17/18 05:15 Urine Color YELLOW 09/14/18 09:30 Urine Clarity CLOUDY (CLEAR) 09/14/18 09:30 Urine pH 6.0 PH (5.0-7.5) 09/14/18 09:30 Ur Specific [place] 1.010 (1.002-1.030) 09/14/18 09:30 Urine Protein TRACE mg/dL (NEGATIVE) 09/14/18 09:30 Urine Glucose (UA) 100 mg/dL (NEGATIVE) H 09/14/18 09:30 Urine Ketones NEGATIVE mg/dL (NEGATIVE) 09/14/18 09:30 Urine Occult Blood TRACE-INTA (NEGATIVE) 09/14/18 09:30 Urine Nitrite NEGATIVE (NEGATIVE) 09/14/18 09:30 Urine Bilirubin NEGATIVE (NEGATIVE) 09/14/18 09:30 Urine Urobilinogen 0.2 (NORMAL) E.U./dL (NORMAL) 09/14/18 09:30 Ur Leukocyte Esterase SMALL (NEGATIVE) H 09/14/18 09:30 Urine RBC 0-5 /HPF (0-5) 09/14/18 09:30 Urine WBC 11-25 /HPF (0-3) H 09/14/18 09:30 Ur Squamous Epith Cells FEW Squamous (<= Few) 09/14/18 09:30 Urine Bacteria Many /HPF (None Seen) H 09/14/18 09:30 Urine Yeast PRESENT 09/14/18 09:30 Ur Microscopic Review INDICATED 09/13/18 22:12 Urine Culture Comments INDICATED 09/14/18 09:30 Urine Opiates Screen POSITIVE (NEGATIVE) H 09/18/18 08:59 Ur Oxycodone Screen NEGATIVE (NEGATIVE) 09/18/18 08:59 Urine Methadone Screen NEGATIVE (NEGATIVE) 09/18/18 08:59 Ur Propoxyphene Screen NEGATIVE (NEGATIVE) 09/18/18 08:59 Ur Barbiturates Screen NEGATIVE (NEGATIVE) 09/18/18 08:59 Ur Tricyclics Screen NEGATIVE (NEGATIVE) 09/18/18 08:59 Ur Phencyclidine Scrn NEGATIVE (NEGATIVE) 09/18/18 08:59 Ur Amphetamine Screen NEGATIVE (NEGATIVE) 09/18/18 08:59 U Methamphetamines Scrn NEGATIVE (NEGATIVE) 09/18/18 08:59 U Benzodiazepines Scrn POSITIVE (NEGATIVE) H 09/18/18 08:59 Urine Cocaine Screen NEGATIVE (NEGATIVE) 09/18/18 08:59 U Cannabinoids Screen NEGATIVE (NEGATIVE) 09/18/18 08:59 Serum Ketones NEGATIVE (NEGATIVE) 09/13/18 21:36
[2018-09-27] MEDS: PRAVASTATIN 40 MG TABLET PO SCH (20:54)
[2018-09-27] MEDS: DOXAZOSIN 1 MG TABLET PO SCH (20:54)
[2018-09-28] MEDS: PHENAZOPYRIDINE 100 MG TABLET PO SCH (05:23)
[2018-09-28] MEDS: CALCIUM CARBONATE CHEW 500 MG TABLET PO SCH ×3 (05:23→21:27)
[2018-09-28] MEDS: MORPHINE SOL 10 MG/0.5 ML SYRINGE PO PRN (05:23)
[2018-09-28] MEDS ORDERED: LACTULOSE 10 GM /15 ML UDC PO ONE (06:51)
[2018-09-28] MEDS: SERTRALINE 25 MG TABLET PO SCH (08:03)
[2018-09-28] MEDS: FERROUS SULFATE 325 MG TABLET PO SCH (08:03)
[2018-09-28] MEDS: TAMSULOSIN 0.4 MG CAPSULE PO SCH (08:03)
[2018-09-28] MEDS: POLYETHYLENE GLYCOL 3350 17 GM PACKET PO PRN (08:03)
[2018-09-28] MEDS: DOCUSATE SODIUM 250 MG CAPSULE PO SCH (08:04)
[2018-09-28] MEDS: MULTIVITAMIN TABLET PO SCH (08:04)
[2018-09-28] MEDS: MEMANTINE 5 MG TABLET PO SCH ×2 (08:04→21:16)
[2018-09-28] MEDS: SENNA 8.6 MG TABLET PO SCH (08:04)
[2018-09-28] MEDS: ASPIRIN 325 MG TABLET PO SCH (08:04)
[2018-09-28] MEDS: INSULIN ASPART 300 UNIT/3 ML PEN SUBQ SCH ×7 (08:07→21:22)
[2018-09-28] MEDS: INSULIN GLARGINE 300 UNIT/3 ML PEN SUBQ SCH ×2 (08:08→21:24)
--- NOTE | 2018-09-28 11:39 | PROVIDER PROGRESS NOTE ---
Assessment/Plan - Problem List (1) Multi-infarct dementia Qualifiers: Dementia behavioral disturbance: without behavioral disturbance Qualified Code(s): F01.50 - Vascular dementia without behavioral disturbance Assessment/Plan: Stable. He is to undergo a mini-mental exam with OT today. (2) Diabetes mellitus, insulin dependent (IDDM), uncontrolled Assessment/Plan: Stable on carb-control diet and Insulin plus ss Insulin. (3) Indwelling Bryant catheter present Assessment/Plan: Chronic due to prostatic obstruction, he needs Urol F/U as outpatient. (4) History of CVA (cerebrovascular accident) Assessment/Plan: His R leg and foot weakness has improved, gait is better per PT. He still has an aspiration risk due to poor swallowing from his stroke(s). He was reseen by Speech Therapy yesterday, who retested him for diet texture. He needs to remain on pureed diet, but she advised he can have specific items from a soft mechanical diet like Mac & Cheese. I will add those to his diet orders. (5) Hiatal hernia with gastroesophageal reflux disease without esophagitis Assessment/Plan: This was confirmed by CT w/ oral contrast. This also gives him a risk for aspiration. (One episode of reflux/regurgitation was witnessed by PT 2 days ago). He has no c/o heartburn, however. (6) Intractable hiccups Assessment/Plan: This also gives him risk for aspiration. Will try Gabapentin 100 mg po tid, which will also help his chronic LBP. (7) Back pain Assessment/Plan: Pain is controlled (8) Iron deficiency anemia Assessment/Plan: On Iron replacement (9) Methamphetamine abuse Assessment/Plan: He admits he had a problem, describes how he lost all ghis teeth to "speed", dnetures don't fit. He plans on NOT using Meth or drugs any longer. (10) Metabolic encephalopathy Assessment/Plan: Resolved with treatment of UTI, aspiration pneumonia and pain. (11) Hypernatremia Assessment/Plan: Will recheck labs intermittently. (12) Recurrent UTI Assessment/Plan: Resolved (13) Aspiration pneumonia Assessment/Plan: Resolved - Current Meds Current Meds: Current Medications Generic Name Dose Route Start Last Admin Trade Name Freq PRN Reason Stop Dose Admin Aspirin 325 mg 09/19/18 11:00 09/28/18 08:04 Jairon PO 325 mg DAILYWM MONTY Administration Calcium Carbonate/Glycine 500 mg 09/26/18 22:00 09/28/18 05:23 Tums PO 500 mg TID MONTY Administration Docusate Sodium 250 - 500 mg 09/15/18 09:00 09/28/18 08:04 Colace 250mg Capsule PO 250 mg DAILY MONTY Administration Doxazosin Mesylate 1 mg 09/19/18 21:00 09/27/18 20:54 Cardura PO 1 mg QPM MONTY Administration Ferrous Sulfate 325 mg 09/20/18 08:00 09/28/18 08:03 Feosol PO 325 mg DAILYWM MONTY Administration Insulin Aspart 3 - 11 unit 09/17/18 08:00 09/28/18 08:07 Novolog SUBQ 3 unit 0800,1200,1700,2100 MONYT Administration Protocol Insulin Aspart 8 unit 09/27/18 12:00 09/28/18 08:07 Novolog SUBQ 8 unit TIDWM MONTY Administration Protocol Insulin Glargine 12 unit 09/24/18 08:00 09/28/18 08:08 Lantus Solostar SUBQ 12 unit DAILY MONTY Administration Insulin Glargine 10 unit 09/24/18 21:00 09/27/18 21:02 Lantus Solostar SUBQ 10 unit QPM MONTY Administration Lidocaine 1 patch 09/15/18 16:37 09/27/18 09:51 Lidoderm Patch TOP 1 patch DAILY PRN Administration PAIN Lorazepam 2 mg 09/18/18 18:24 09/20/18 00:30 Ativan Inj (Vial) IVP 2 mg Q2H PRN Administration Agitation Memantine 5 mg 09/19/18 21:00 09/28/18 08:04 Namenda PO 5 mg BID MONTY Administration Morphine Sulfate 5 mg 09/22/18 00:25 09/28/18 05:23 Roxanol PO 5 mg Q2HR PRN Administration PAIN Multivitamins 1 tab 09/19/18 10:00 09/28/18 08:04 Theragran PO 1 tab DAILYWM MONTY Administration Phenazopyridine HCl 100 mg 09/19/18 10:00 09/28/18 05:23 Pyridium PO 100 mg TID MONTY Administration Polyethylene Glycol 17 gm 09/22/18 10:24 09/28/18 08:03 Miralax PO 17 gm DAILY PRN Administration Constipation Pravastatin Sodium 80 mg 09/19/18 21:00 09/27/18 20:54 Pravachol PO 80 mg QPM MONTY Administration Senna 8.6 - 17.2 mg 09/15/18 09:00 09/28/18 08:04 Senokot PO 8.6 mg DAILY MONTY Administration Sertraline HCl 12.5 mg 09/19/18 10:00 09/28/18 08:03 Zoloft PO 12.5 mg DAILY MONTY Administration Sodium Chloride 10 ml 09/14/18 08:05 09/24/18 18:57 Normal Saline Flush 0.9% IVP 10 ml PRN PRN Administration NEEDED PER PROVIDER ORDERS Sodium Chloride 10 ml 09/14/18 09:00 09/27/18 23:36 Normal Saline Flush 0.9% IVP 10 ml 0100,0900,1700 MONTY Administration Tamsulosin HCl 0.4 mg 09/20/18 09:00 09/28/18 08:03 Flomax PO 0.4 mg DAILY MONTY Administration Zolpidem Tartrate 5 mg 09/24/18 22:54 09/27/18 22:04 Ambien PO 5 mg QPM PRN Administration Insomnia - Lab Result Fish Bone Diagrams: 09/20/18 04:20 09/20/18 04:20 - Additional Planning My Orders: My Active Orders 09/27/18 10:44 Postural [Vital Signs - Orthostatic] [RC] DAILY 09/27/18 12:00 Insulin Aspart [NovoLOG] 8 unit SUBQ TIDWM 09/27/18 17:34 Shower [RC] PRN 09/27/18 Dinner Dysphagia Puree Diet [DIET] Subjective - Subjective Patient Reports: No Complaints Nursing Reports: No Complaints Objective Vital Signs: Vital Signs - 24 hr 09/27/18 09/28/18 09/28/18 16:00 00:00 07:21 Temperature 36.5 C 37.1 C 36.7 C Heart Rate [ 76 89 66 Brachial] Heart Rate [ Sitting (After 1 Minute)] Heart Rate [ Standing (After 1 Minute)] Heart Rate [ Supine] Respiratory 18 18 18 Rate Blood Pressure 156/74 H 124/81 H 117/67 [Right Brachial artery] Blood Pressure [Sitting (After 1 Minute)] Blood Pressure [Standing ( After 1 Minute) ] Blood Pressure [Supine] O2 Saturation 98 95 95 09/28/18 10:01 Temperature Heart Rate [ Brachial] Heart Rate [ 94 Sitting (After 1 Minute)] Heart Rate [ 103 H Standing (After 1 Minute)] Heart Rate [ 88 Supine] Respiratory Rate Blood Pressure [Right Brachial artery] Blood Pressure 114/84 H [Sitting (After 1 Minute)] Blood Pressure 122/73 [Standing ( After 1 Minute) ] Blood Pressure 126/83 H [Supine] O2 Saturation Oxygen O2 Source [With Activity] Nasal cannula O2 Source Room air I&O (Last 24 Hrs): Intake and Output Totals x24h 09/26/18 09/27/18 09/28/18 23:59 23:59 23:59 Intake Total 1200 760 520 Output Total 2550 2300 1600 Balance -1350 -1540 -1080 HEENT: Mucous membr. moist/pink Neuro: Disoriented, Non Focal Cardiovascular: Regular rate Respiratory: No respiratory distress Abdomen: Soft Extremities: No edema - Results Results: Laboratory Results WBC 10.0 x10^3/uL (4.8-10.8) 09/20/18 04:20 RBC 3.40 10^6/uL (4.70-6.10) L 09/20/18 04:20 Hgb 10.2 g/dL (14.0-18.0) L 09/20/18 04:20 Hct 30.5 % (42.0-52.0) L 09/20/18 04:20 MCV 89.9 fL (80.0-94.0) 09/20/18 04:20 MCH 30.1 pg (27.0-31.0) 09/20/18 04:20 MCHC 33.5 g/dL (32.0-36.0) 09/20/18 04:20 RDW 14.7 % (12.0-15.0) 09/20/18 04:20 Plt Count 276 10^3/uL (130-450) 09/20/18 04:20 MPV 8.8 fL (7.4-11.4) 09/20/18 04:20 Neut # (Auto) 7.2 10^3/uL (1.5-6.6) H 09/20/18 04:20 Lymph # (Auto) 1.6 10^3/uL (1.5-3.5) 09/20/18 04:20 [place] # (Auto) 0.7 10^3/uL (0.0-1.0) 09/20/18 04:20 Eos # (Auto) 0.4 10^3/uL (0.0-0.7) 09/20/18 04:20 Baso # (Auto) 0.1 10^3/uL (0.0-0.1) 09/20/18 04:20 Absolute Nucleated RBC 0.01 x10^3/uL 09/20/18 04:20 Nucleated RBC % 0.1 /100WBC 09/20/18 04:20 PT 13.2 secs (9.9-12.6) H 09/14/18 08:47 INR 1.2 (0.8-1.2) 09/14/18 08:47 Sodium 147 mmol/L (135-145) H 09/20/18 04:20 Potassium 3.5 mmol/L (3.5-5.0) 09/20/18 04:20 Chloride 111 mmol/L (101-111) 09/20/18 04:20 Carbon Dioxide 27 mmol/L (21-32) 09/20/18 04:20 Anion Gap 9.0 (6-13) 09/20/18 04:20 BUN 16 mg/dL (6-20) 09/20/18 04:20 Creatinine 1.1 mg/dL (0.6-1.2) 09/20/18 04:20 Estimated GFR (MDRD) 67 (>89) L 09/20/18 04:20 Glucose 227 mg/dL (70-100) H 09/20/18 04:20 POC Whole Bld Glucose 198 mg/dL (70 - 100) H 09/28/18 11:05 Glycated Hemoglobin 10.0 % (4.6-6.2) H 09/14/18 08:47 Estim Average Glucose 240 (70-100) H 09/14/18 08:47 Calcium 9.0 mg/dL (8.5-10.3) 09/20/18 04:20 Phosphorus 2.8 mg/dL (2.5-4.6) 09/20/18 04:20 Magnesium 1.8 mg/dL (1.7-2.8) 09/18/18 04:52 Iron 16 ug/dL (45-182) L 09/17/18 05:15 TIBC 160 ug/dL (250-450) L 09/17/18 05:15 % Saturation 10 % (20-50) L 09/17/18 05:15 Transferrin 114 mg/dL (180-329) L 09/17/18 05:15 Total Bilirubin 0.8 mg/dL (0.2-1.0) 09/19/18 04:55 AST 27 IU/L (10-42) 09/19/18 04:55 ALT 25 IU/L (10-60) 09/19/18 04:55 Alkaline Phosphatase 103 IU/L (42-121) 09/19/18 04:55 Troponin I < 0.04 ng/mL (<0.49) 09/14/18 19:49 Total Protein 6.7 g/dL (6.7-8.2) 09/19/18 04:55 Albumin 2.2 g/dL (3.2-5.5) L 09/20/18 04:20 Globulin 4.4 g/dL (2.1-4.2) H 09/19/18 04:55 Albumin/Globulin Ratio 0.5 (1.0-2.2) L 09/19/18 04:55 Lipase 35 U/L (22-51) 09/13/18 21:36 Vitamin B12 1110 pg/mL (180-914) H 09/17/18 05:15 Folate 21.00 ng/mL (5.90 - >24.8) 09/17/18 05:15 Urine Color YELLOW 09/14/18 09:30 Urine Clarity CLOUDY (CLEAR) 09/14/18 09:30 Urine pH 6.0 PH (5.0-7.5) 09/14/18 09:30 Ur Specific [place] 1.010 (1.002-1.030) 09/14/18 09:30 Urine Protein TRACE mg/dL (NEGATIVE) 09/14/18 09:30 Urine Glucose (UA) 100 mg/dL (NEGATIVE) H 09/14/18 09:30 Urine Ketones NEGATIVE mg/dL (NEGATIVE) 09/14/18 09:30 Urine Occult Blood TRACE-INTA (NEGATIVE) 09/14/18 09:30 Urine Nitrite NEGATIVE (NEGATIVE) 09/14/18 09:30 Urine Bilirubin NEGATIVE (NEGATIVE) 09/14/18 09:30 Urine Urobilinogen 0.2 (NORMAL) E.U./dL (NORMAL) 09/14/18 09:30 Ur Leukocyte Esterase SMALL (NEGATIVE) H 09/14/18 09:30 Urine RBC 0-5 /HPF (0-5) 09/14/18 09:30 Urine WBC 11-25 /HPF (0-3) H 09/14/18 09:30 Ur Squamous Epith Cells FEW Squamous (<= Few) 09/14/18 09:30 Urine Bacteria Many /HPF (None Seen) H 09/14/18 09:30 Urine Yeast PRESENT 09/14/18 09:30 Ur Microscopic Review INDICATED 09/13/18 22:12 Urine Culture Comments INDICATED 09/14/18 09:30 Urine Opiates Screen POSITIVE (NEGATIVE) H 09/18/18 08:59 Ur Oxycodone Screen NEGATIVE (NEGATIVE) 09/18/18 08:59 Urine Methadone Screen NEGATIVE (NEGATIVE) 09/18/18 08:59 Ur Propoxyphene Screen NEGATIVE (NEGATIVE) 09/18/18 08:59 Ur Barbiturates Screen NEGATIVE (NEGATIVE) 09/18/18 08:59 Ur Tricyclics Screen NEGATIVE (NEGATIVE) 09/18/18 08:59 Ur Phencyclidine Scrn NEGATIVE (NEGATIVE) 09/18/18 08:59 Ur Amphetamine Screen NEGATIVE (NEGATIVE) 09/18/18 08:59 U Methamphetamines Scrn NEGATIVE (NEGATIVE) 09/18/18 08:59 U Benzodiazepines Scrn POSITIVE (NEGATIVE) H 09/18/18 08:59 Urine Cocaine Screen NEGATIVE (NEGATIVE) 09/18/18 08:59 U Cannabinoids Screen NEGATIVE (NEGATIVE) 09/18/18 08:59 Serum Ketones NEGATIVE (NEGATIVE) 09/13/18 21:36
[2018-09-28] MEDS: SODIUM CHLORIDE FLUSH 0.9% 10 ML SYRINGE IVP SCH ×2 (12:20→21:20)
[2018-09-28] MEDS: GABAPENTIN 100 MG CAPSULE PO SCH ×2 (13:57→21:27)
[2018-09-28] MEDS: PRAVASTATIN 40 MG TABLET PO SCH (21:16)
[2018-09-28] MEDS: DOXAZOSIN 1 MG TABLET PO SCH (21:16)
[2018-09-28] MEDS: guaiFENesin 600 MG TABLET PO SCH (21:16)
[2018-09-29] MEDS: ACETAMINOPHEN 325 MG TABLET PO PRN (00:25)
[2018-09-29] MEDS: SODIUM CHLORIDE FLUSH 0.9% 10 ML SYRINGE IVP SCH ×2 (00:28→09:01)
[2018-09-29] MEDS: CALCIUM CARBONATE CHEW 500 MG TABLET PO SCH ×3 (05:47→21:14)
[2018-09-29] MEDS: GABAPENTIN 100 MG CAPSULE PO SCH ×2 (05:47→13:39)
[2018-09-29 06:04] LABS: BASOPHILS # (AUTO) 0.1 10^3/uL (0.0-0.1); EOSINOPHILS # (AUTO) 0.3 10^3/uL (0.0-0.7); EOSINOPHILS % (AUTO) 3.7 %; HGB - HEMOGLOBIN 10.8 g/dL (14.0-18.0); LYMPHOCYTES # (AUTO) 1.7 10^3/uL (1.5-3.5); LYMPHOCYTES % (AUTO) 22.2 %; MEAN CORPUSCULAR HEMOGLOBIN 29.1 pg (27.0-31.0); MEAN CORPUSCULAR HGB CONC 32.8 g/dL (32.0-36.0); MEAN CORPUSCULAR VOLUME 88.7 fL (80.0-94.0); MEAN PLATELET VOLUME 8.5 fL (7.4-11.4); MONOCYTES # (AUTO) 0.6 10^3/uL (0.0-1.0); MONOCYTES % (AUTO) 8.1 %; PLT - PLATELET COUNT 486 10^3/uL (130-450); RED CELL DISTRIBUTION WIDTH 14.7 % (12.0-15.0); WHITE BLOOD COUNT 7.6 x10^3/uL (4.8-10.8)
[2018-09-29 06:12] LABS: ALBUMIN 2.5 g/dL (3.2-5.5); ALBUMIN/GLOBULIN RATIO 0.5 (1.0-2.2); BILIRUBIN,TOTAL 0.4 mg/dL (0.2-1.0); CALCIUM 9.4 mg/dL (8.5-10.3); CREATININE 1.1 mg/dL (0.6-1.2); MAGNESIUM 1.9 mg/dL (1.7-2.8)
[2018-09-29] MEDS: ASPIRIN 325 MG TABLET PO SCH (08:52)
[2018-09-29] MEDS: SENNA 8.6 MG TABLET PO SCH (08:52)
[2018-09-29] MEDS: MULTIVITAMIN TABLET PO SCH (08:52)
[2018-09-29] MEDS: SERTRALINE 25 MG TABLET PO SCH (08:52)
[2018-09-29] MEDS: INSULIN GLARGINE 300 UNIT/3 ML PEN SUBQ SCH ×2 (08:53→21:13)
[2018-09-29] MEDS: FERROUS SULFATE 325 MG TABLET PO SCH (08:53)
[2018-09-29] MEDS: MEMANTINE 5 MG TABLET PO SCH ×2 (08:53→21:08)
[2018-09-29] MEDS: TAMSULOSIN 0.4 MG CAPSULE PO SCH (08:53)
[2018-09-29] MEDS: guaiFENesin 600 MG TABLET PO SCH ×2 (08:53→21:08)
[2018-09-29] MEDS: INSULIN ASPART 300 UNIT/3 ML PEN SUBQ SCH ×7 (08:54→21:12)
--- NOTE | 2018-09-29 09:01 | PROVIDER PROGRESS NOTE ---
Assessment/Plan - Problem List (1) Multi-infarct dementia Qualifiers: Dementia behavioral disturbance: without behavioral disturbance Qualified Code(s): F01.50 - Vascular dementia without behavioral disturbance Assessment/Plan: Stable and no behavioral disturbances since his metabolic encephalopathy cleared with treatment of underlying infections (pneumonia and UTI). (2) Diabetes mellitus, insulin dependent (IDDM), uncontrolled Assessment/Plan: Continue carb controlled diet and scheduled plus ss Insulin coverage. 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 he will need outpatient Urology eval and management. (4) History of CVA (cerebrovascular accident) Assessment/Plan: An altered diet is required due to swallowing impairment after CVA. The swallowing coal digger from brought a list of "extra" foods that could be offered and I have put those items in his list. He is taking diet and fluids adequately, therefore his saline-locked iv can be removed. - Current Meds Current Meds: Current Medications Generic Name Dose Route Start Last Admin Trade Name Freq PRN Reason Stop Dose Admin Acetaminophen 650 mg 09/29/18 00:10 09/29/18 00:25 Tylenol PO 650 mg Q4HR PRN Administration Pain or Fever > 38C (100.4F) Aspirin 325 mg 09/19/18 11:00 09/28/18 08:04 Jairon PO 325 mg DAILYWM MONTY Administration Calcium Carbonate/Glycine 500 mg 09/26/18 22:00 09/29/18 05:47 Tums PO 500 mg TID OMNTY Administration Docusate Sodium 250 - 500 mg 09/15/18 09:00 09/28/18 08:04 Colace 250mg Capsule PO 250 mg DAILY MONTY Administration Doxazosin Mesylate 1 mg 09/19/18 21:00 09/28/18 21:16 Cardura PO 1 mg QPM MONTY Administration Ferrous Sulfate 325 mg 09/20/18 08:00 09/28/18 08:03 Feosol PO 325 mg DAILYWM MONTY Administration Gabapentin 100 mg 09/28/18 14:00 09/29/18 05:47 Neurontin PO 100 mg TID MONTY Administration Guaifenesin 600 mg 09/28/18 21:00 09/28/18 21:16 Mucinex PO 600 mg BID MONTY Administration Insulin Aspart 3 - 11 unit 09/17/18 08:00 09/28/18 21:22 Novolog SUBQ 9 unit 0800,1200,1700,2100 MONTY Administration Protocol Insulin Aspart 8 unit 09/27/18 12:00 09/28/18 16:54 Novolog SUBQ 8 unit TIDWM MONTY Administration Protocol Insulin Glargine 12 unit 09/24/18 08:00 09/28/18 08:08 Lantus Solostar SUBQ 12 unit DAILY MONTY Administration Insulin Glargine 10 unit 09/24/18 21:00 09/28/18 21:24 Lantus Solostar SUBQ 10 unit QPM MONTY Administration Lidocaine 1 patch 09/15/18 16:37 09/27/18 09:51 Lidoderm Patch TOP 1 patch DAILY PRN Administration PAIN Memantine 5 mg 09/19/18 21:00 09/28/18 21:16 Namenda PO 5 mg BID MONTY Administration Multivitamins 1 tab 09/19/18 10:00 09/28/18 08:04 Theragran PO 1 tab DAILYWM MONTY Administration Polyethylene Glycol 17 gm 09/22/18 10:24 09/28/18 08:03 Miralax PO 17 gm DAILY PRN Administration Constipation Pravastatin Sodium 80 mg 09/19/18 21:00 09/28/18 21:16 Pravachol PO 80 mg QPM MONTY Administration Senna 8.6 - 17.2 mg 09/15/18 09:00 09/28/18 08:04 Senokot PO 8.6 mg DAILY MONTY Administration Sertraline HCl 12.5 mg 09/19/18 10:00 09/28/18 08:03 Zoloft PO 12.5 mg DAILY MONTY Administration Sodium Chloride 10 ml 09/14/18 08:05 09/24/18 18:57 Normal Saline Flush 0.9% IVP 10 ml PRN PRN Administration NEEDED PER PROVIDER ORDERS Sodium Chloride 10 ml 09/14/18 09:00 09/29/18 00:28 Normal Saline Flush 0.9% IVP 10 ml 0100,0900,1700 MONTY Administration Tamsulosin HCl 0.4 mg 09/20/18 09:00 09/28/18 08:03 Flomax PO 0.4 mg DAILY MONTY Administration Zolpidem Tartrate 5 mg 09/24/18 22:54 09/27/18 22:04 Ambien PO 5 mg QPM PRN Administration Insomnia - Lab Result Fish Bone Diagrams: 09/29/18 05:53 09/29/18 05:53 - Additional Planning My Orders: My Active Orders 09/28/18 14:00 Gabapentin [Neurontin] 100 mg PO TID 09/28/18 21:00 guaiFENesin [Mucinex] 600 mg PO BID Objective Vital Signs: Vital Signs - 24 hr 09/28/18 09/28/18 09/29/18 10:01 15:52 00:00 Temperature 36.9 C 37.0 C Heart Rate [ 102 H 76 Brachial] Heart Rate [ 94 Sitting (After 1 Minute)] Heart Rate [ 103 H Standing (After 1 Minute)] Heart Rate [ 88 Supine] Respiratory 18 16 Rate Blood Pressure 137/79 H 150/76 H [Right Brachial artery] Blood Pressure 114/84 H [Sitting (After 1 Minute)] Blood Pressure 122/73 [Standing ( After 1 Minute) ] Blood Pressure 126/83 H [Supine] O2 Saturation 95 95 09/29/18 08:00 Temperature 36.3 C L Heart Rate [ 78 Brachial] Heart Rate [ Sitting (After 1 Minute)] Heart Rate [ Standing (After 1 Minute)] Heart Rate [ Supine] Respiratory 16 Rate Blood Pressure 137/92 H [Right Brachial artery] Blood Pressure [Sitting (After 1 Minute)] Blood Pressure [Standing ( After 1 Minute) ] Blood Pressure [Supine] O2 Saturation 94 Oxygen O2 Source [With Activity] Nasal cannula O2 Source Room air I&O (Last 24 Hrs): Intake and Output Totals x24h 09/27/18 09/28/18 09/29/18 23:59 23:59 23:59 Intake Total 760 1505 400 Output Total 2300 2650 1050 Balance -1440 -7187 -451 - Results Results: Laboratory Results WBC 7.6 x10^3/uL (4.8-10.8) 09/29/18 05:53 RBC 3.70 10^6/uL (4.70-6.10) L 09/29/18 05:53 Hgb 10.8 g/dL (14.0-18.0) L 09/29/18 05:53 Hct 32.8 % (42.0-52.0) L 09/29/18 05:53 MCV 88.7 fL (80.0-94.0) 09/29/18 05:53 MCH 29.1 pg (27.0-31.0) 09/29/18 05:53 MCHC 32.8 g/dL (32.0-36.0) 09/29/18 05:53 RDW 14.7 % (12.0-15.0) 09/29/18 05:53 Plt Count 486 10^3/uL (130-450) H 09/29/18 05:53 MPV 8.5 fL (7.4-11.4) 09/29/18 05:53 Neut # (Auto) 5.0 10^3/uL (1.5-6.6) 09/29/18 05:53 Lymph # (Auto) 1.7 10^3/uL (1.5-3.5) 09/29/18 05:53 [place] # (Auto) 0.6 10^3/uL (0.0-1.0) 09/29/18 05:53 Eos # (Auto) 0.3 10^3/uL (0.0-0.7) 09/29/18 05:53 Baso # (Auto) 0.1 10^3/uL (0.0-0.1) 09/29/18 05:53 Absolute Nucleated RBC 0.00 x10^3/uL 09/29/18 05:53 Nucleated RBC % 0.0 /100WBC 09/29/18 05:53 PT 13.2 secs (9.9-12.6) H 09/14/18 08:47 INR 1.2 (0.8-1.2) 09/14/18 08:47 Sodium 140 mmol/L (135-145) 09/29/18 05:53 Potassium 4.0 mmol/L (3.5-5.0) 09/29/18 05:53 Chloride 104 mmol/L (101-111) 09/29/18 05:53 Carbon Dioxide 25 mmol/L (21-32) 09/29/18 05:53 Anion Gap 11.0 (6-13) 09/29/18 05:53 BUN 22 mg/dL (6-20) H 09/29/18 05:53 Creatinine 1.1 mg/dL (0.6-1.2) 09/29/18 05:53 Estimated GFR (MDRD) 67 (>89) L 09/29/18 05:53 Glucose 126 mg/dL (70-100) H 09/29/18 05:53 POC Whole Bld Glucose 132 mg/dL (70 - 100) H 09/29/18 07:40 Glycated Hemoglobin 10.0 % (4.6-6.2) H 09/14/18 08:47 Estim Average Glucose 240 (70-100) H 09/14/18 08:47 Calcium 9.4 mg/dL (8.5-10.3) 09/29/18 05:53 Phosphorus 2.8 mg/dL (2.5-4.6) 09/20/18 04:20 Magnesium 1.9 mg/dL (1.7-2.8) 09/29/18 05:53 Iron 16 ug/dL (45-182) L 09/17/18 05:15 TIBC 160 ug/dL (250-450) L 09/17/18 05:15 % Saturation 10 % (20-50) L 09/17/18 05:15 Transferrin 114 mg/dL (180-329) L 09/17/18 05:15 Total Bilirubin 0.4 mg/dL (0.2-1.0) 09/29/18 05:53 AST 42 IU/L (10-42) 09/29/18 05:53 ALT 59 IU/L (10-60) 09/29/18 05:53 Alkaline Phosphatase 80 IU/L (42-121) 09/29/18 05:53 Troponin I < 0.04 ng/mL (<0.49) 09/14/18 19:49 Total Protein 8.0 g/dL (6.7-8.2) 09/29/18 05:53 Albumin 2.5 g/dL (3.2-5.5) L 09/29/18 05:53 Globulin 5.5 g/dL (2.1-4.2) H 09/29/18 05:53 Albumin/Globulin Ratio 0.5 (1.0-2.2) L 09/29/18 05:53 Lipase 35 U/L (22-51) 09/13/18 21:36 Vitamin B12 1110 pg/mL (180-914) H 09/17/18 05:15 Folate 21.00 ng/mL (5.90 - >24.8) 09/17/18 05:15 Urine Color YELLOW 09/14/18 09:30 Urine Clarity CLOUDY (CLEAR) 09/14/18 09:30 Urine pH 6.0 PH (5.0-7.5) 09/14/18 09:30 Ur Specific [place] 1.010 (1.002-1.030) 09/14/18 09:30 Urine Protein TRACE mg/dL (NEGATIVE) 09/14/18 09:30 Urine Glucose (UA) 100 mg/dL (NEGATIVE) H 09/14/18 09:30 Urine Ketones NEGATIVE mg/dL (NEGATIVE) 09/14/18 09:30 Urine Occult Blood TRACE-INTA (NEGATIVE) 09/14/18 09:30 Urine Nitrite NEGATIVE (NEGATIVE) 09/14/18 09:30 Urine Bilirubin NEGATIVE (NEGATIVE) 09/14/18 09:30 Urine Urobilinogen 0.2 (NORMAL) E.U./dL (NORMAL) 09/14/18 09:30 Ur Leukocyte Esterase SMALL (NEGATIVE) H 09/14/18 09:30 Urine RBC 0-5 /HPF (0-5) 09/14/18 09:30 Urine WBC 11-25 /HPF (0-3) H 09/14/18 09:30 Ur Squamous Epith Cells FEW Squamous (<= Few) 09/14/18 09:30 Urine Bacteria Many /HPF (None Seen) H 09/14/18 09:30 Urine Yeast PRESENT 09/14/18 09:30 Ur Microscopic Review INDICATED 09/13/18 22:12 Urine Culture Comments INDICATED 09/14/18 09:30 Urine Opiates Screen POSITIVE (NEGATIVE) H 09/18/18 08:59 Ur Oxycodone Screen NEGATIVE (NEGATIVE) 09/18/18 08:59 Urine Methadone Screen NEGATIVE (NEGATIVE) 09/18/18 08:59 Ur Propoxyphene Screen NEGATIVE (NEGATIVE) 09/18/18 08:59 Ur Barbiturates Screen NEGATIVE (NEGATIVE) 09/18/18 08:59 Ur Tricyclics Screen NEGATIVE (NEGATIVE) 09/18/18 08:59 Ur Phencyclidine Scrn NEGATIVE (NEGATIVE) 09/18/18 08:59 Ur Amphetamine Screen NEGATIVE (NEGATIVE) 09/18/18 08:59 U Methamphetamines Scrn NEGATIVE (NEGATIVE) 09/18/18 08:59 U Benzodiazepines Scrn POSITIVE (NEGATIVE) H 09/18/18 08:59 Urine Cocaine Screen NEGATIVE (NEGATIVE) 09/18/18 08:59 U Cannabinoids Screen NEGATIVE (NEGATIVE) 09/18/18 08:59 Serum Ketones NEGATIVE (NEGATIVE) 09/13/18 21:36
[2018-09-29] MEDS ORDERED: LACTULOSE 10 GM /15 ML UDC PO SCH (11:00)
[2018-09-29] MEDS: DOCUSATE SODIUM 250 MG CAPSULE PO SCH (11:50)
[2018-09-29] MEDS ORDERED: LACTULOSE 10 GM /15 ML UDC PO PRN (12:52)
[2018-09-29] MEDS: DOXAZOSIN 1 MG TABLET PO SCH (21:08)
[2018-09-29] MEDS: PRAVASTATIN 40 MG TABLET PO SCH (21:08)
[2018-09-30] MEDS: CALCIUM CARBONATE CHEW 500 MG TABLET PO SCH ×3 (06:26→22:05)
[2018-09-30] MEDS: SERTRALINE 25 MG TABLET PO SCH (08:55)
[2018-09-30] MEDS: FERROUS SULFATE 325 MG TABLET PO SCH (08:56)
[2018-09-30] MEDS: MULTIVITAMIN TABLET PO SCH (08:56)
[2018-09-30] MEDS: ASPIRIN 325 MG TABLET PO SCH (08:56)
[2018-09-30] MEDS: guaiFENesin 600 MG TABLET PO SCH ×2 (08:56→20:27)
[2018-09-30] MEDS: GABAPENTIN 100 MG CAPSULE PO SCH ×2 (08:56→20:27)
[2018-09-30] MEDS: MEMANTINE 5 MG TABLET PO SCH ×2 (08:56→20:27)
[2018-09-30] MEDS: DOCUSATE SODIUM 250 MG CAPSULE PO SCH (08:57)
[2018-09-30] MEDS: SENNA 8.6 MG TABLET PO SCH (08:57)
[2018-09-30] MEDS: TAMSULOSIN 0.4 MG CAPSULE PO SCH (08:57)
[2018-09-30] MEDS: INSULIN ASPART 300 UNIT/3 ML PEN SUBQ SCH ×7 (09:00→20:49)
[2018-09-30] MEDS ORDERED: LACTULOSE 10 GM/15 ML BOTTLE PO PRN (09:00)
[2018-09-30] MEDS: INSULIN GLARGINE 300 UNIT/3 ML PEN SUBQ SCH ×3 (09:02→20:50)
--- NOTE | 2018-09-30 18:28 | PROVIDER PROGRESS NOTE ---
Assessment/Plan - Problem List (1) Multi-infarct dementia Qualifiers: Dementia behavioral disturbance: without behavioral disturbance Qualified Code(s): F01.50 - Vascular dementia without behavioral disturbance Assessment/Plan: Unchanged. He is cooperative and pleasant. He does not emember using Meth, until reminded with examples or his own quotes, by his ex-, who is at bedside today, visiting from [place]. (2) Diabetes mellitus, insulin dependent (IDDM), uncontrolled Assessment/Plan: Stable on current management. (3) Indwelling Bryant catheter present Assessment/Plan: Conitnue for urinary obstruction. (4) History of CVA (cerebrovascular accident) Assessment/Plan: Diet is altered , but I presented him with the extra food items that he may try. (5) Hiatal hernia with gastroesophageal reflux disease without esophagitis Assessment/Plan: Stable, no regurgitation in several days. (6) Intractable hiccups Assessment/Plan: The Gabapentin 100 mg 3 times daily that was started 2 days ago, caused excessive somnolence yesterday, and it has been decreased to 100 mg twice daily which appears to be working without the lethargy (7) Back pain Assessment/Plan: Stable without complaints on his current Medicaid (8) Iron deficiency anemia Assessment/Plan: He is on iron replacements, started here (9) Methamphetamine abuse Assessment/Plan: See #1 - Current Meds Current Meds: Current Medications Generic Name Dose Route Start Last Admin Trade Name Freq PRN Reason Stop Dose Admin Acetaminophen 650 mg 09/29/18 00:10 09/29/18 00:25 Tylenol PO 650 mg Q4HR PRN Administration Pain or Fever > 38C (100.4F) Aspirin 325 mg 09/19/18 11:00 09/30/18 08:56 Jairon PO 325 mg DAILYWM MONTY Administration Calcium Carbonate/Glycine 500 mg 09/26/18 22:00 09/30/18 12:45 Tums PO 500 mg TID MONTY Administration Docusate Sodium 250 - 500 mg 09/15/18 09:00 09/30/18 08:57 Colace 250mg Capsule PO 250 mg DAILY MONTY Administration Doxazosin Mesylate 1 mg 09/19/18 21:00 09/29/18 21:08 Cardura PO 1 mg QPM MONTY Administration Ferrous Sulfate 325 mg 09/20/18 08:00 09/30/18 08:56 Feosol PO 325 mg DAILYWM MONTY Administration Gabapentin 100 mg 09/30/18 09:00 09/30/18 08:56 Neurontin PO 100 mg BID MONTY Administration Guaifenesin 600 mg 09/28/18 21:00 09/30/18 08:56 Mucinex PO 600 mg BID MONTY Administration Insulin Aspart 3 - 11 unit 09/17/18 08:00 09/30/18 17:00 Novolog SUBQ Not Given 0800,1200,1700,2100 [facility] Protocol Insulin Aspart 8 unit 09/27/18 12:00 09/30/18 17:01 Novolog SUBQ 8 unit TIDWM MONTY Administration Protocol Insulin Glargine 12 unit 09/24/18 08:00 09/30/18 09:02 Lantus Solostar SUBQ 12 unit DAILY MONTY Administration Insulin Glargine 10 unit 09/24/18 21:00 09/29/18 21:13 Lantus Solostar SUBQ 10 unit QPM MONTY Administration Lidocaine 1 patch 09/15/18 16:37 09/27/18 09:51 Lidoderm Patch TOP 1 patch DAILY PRN Administration PAIN Memantine 5 mg 09/19/18 21:00 09/30/18 08:56 Namenda PO 5 mg BID MONTY Administration Multivitamins 1 tab 09/19/18 10:00 09/30/18 08:56 Theragran PO 1 tab DAILYWM MONTY Administration Polyethylene Glycol 17 gm 09/22/18 10:24 09/28/18 08:03 Miralax PO 17 gm DAILY PRN Administration Constipation Pravastatin Sodium 80 mg 09/19/18 21:00 09/29/18 21:08 Pravachol PO 80 mg QPM MONTY Administration Senna 8.6 - 17.2 mg 09/15/18 09:00 09/30/18 08:57 Senokot PO 17.2 mg DAILY MONTY Administration Sertraline HCl 12.5 mg 09/19/18 10:00 09/30/18 08:55 Zoloft PO 12.5 mg DAILY MONTY Administration Tamsulosin HCl 0.4 mg 09/20/18 09:00 09/30/18 08:57 Flomax PO 0.4 mg DAILY MONTY Administration Zolpidem Tartrate 5 mg 09/24/18 22:54 09/27/18 22:04 Ambien PO 5 mg QPM PRN Administration Insomnia - Lab Result Fish Bone Diagrams: 09/29/18 05:53 09/29/18 05:53 - Additional Planning My Orders: My Active Orders 09/30/18 09:00 Gabapentin [Neurontin] 100 mg PO BID Lactulose 20 gm PO DAILY PRN Subjective - Subjective Patient Reports: Resting Comfortably Nursing Reports: No Complaints Objective Vital Signs: Vital Signs - 24 hr 09/30/18 09/30/18 00:00 08:00 Temperature 36.5 C 36.6 C Heart Rate [ 76 70 Brachial] Respiratory 16 16 Rate Blood Pressure 123/67 148/72 H [Right Brachial artery] O2 Saturation 98 95 Oxygen O2 Source [With Activity] Nasal cannula O2 Source Room air I&O (Last 24 Hrs): Intake and Output Totals x24h 09/28/18 09/29/18 09/30/18 23:59 23:59 23:59 Intake Total 1505 2080 720 Output Total 2650 2000 1200 Balance -1145 80 -480 General: Alert HEENT: Mucous membr. moist/pink, Other (Edentulous) Neck: Supple Neuro: Non Focal, Other (Poor memory, gait was slow and wide-based today (used a walker, with PT).) Cardiovascular: Regular rate, No murmurs Respiratory: No respiratory distress Abdomen: Soft Genitourinary: Other (Bryant draining clear yellow urine) Extremities: No edema - Results Results: Laboratory Results WBC 7.6 x10^3/uL (4.8-10.8) 09/29/18 05:53 RBC 3.70 10^6/uL (4.70-6.10) L 09/29/18 05:53 Hgb 10.8 g/dL (14.0-18.0) L 09/29/18 05:53 Hct 32.8 % (42.0-52.0) L 09/29/18 05:53 MCV 88.7 fL (80.0-94.0) 09/29/18 05:53 MCH 29.1 pg (27.0-31.0) 09/29/18 05:53 MCHC 32.8 g/dL (32.0-36.0) 09/29/18 05:53 RDW 14.7 % (12.0-15.0) 09/29/18 05:53 Plt Count 486 10^3/uL (130-450) H 09/29/18 05:53 MPV 8.5 fL (7.4-11.4) 09/29/18 05:53 Neut # (Auto) 5.0 10^3/uL (1.5-6.6) 09/29/18 05:53 Lymph # (Auto) 1.7 10^3/uL (1.5-3.5) 09/29/18 05:53 [place] # (Auto) 0.6 10^3/uL (0.0-1.0) 09/29/18 05:53 Eos # (Auto) 0.3 10^3/uL (0.0-0.7) 09/29/18 05:53 Baso # (Auto) 0.1 10^3/uL (0.0-0.1) 09/29/18 05:53 Absolute Nucleated RBC 0.00 x10^3/uL 09/29/18 05:53 Nucleated RBC % 0.0 /100WBC 09/29/18 05:53 PT 13.2 secs (9.9-12.6) H 09/14/18 08:47 INR 1.2 (0.8-1.2) 09/14/18 08:47 Sodium 140 mmol/L (135-145) 09/29/18 05:53 Potassium 4.0 mmol/L (3.5-5.0) 09/29/18 05:53 Chloride 104 mmol/L (101-111) 09/29/18 05:53 Carbon Dioxide 25 mmol/L (21-32) 09/29/18 05:53 Anion Gap 11.0 (6-13) 09/29/18 05:53 BUN 22 mg/dL (6-20) H 09/29/18 05:53 Creatinine 1.1 mg/dL (0.6-1.2) 09/29/18 05:53 Estimated GFR (MDRD) 67 (>89) L 09/29/18 05:53 Glucose 126 mg/dL (70-100) H 09/29/18 05:53 POC Whole Bld Glucose 93 mg/dL (70 - 100) 09/30/18 16:41 Glycated Hemoglobin 10.0 % (4.6-6.2) H 09/14/18 08:47 Estim Average Glucose 240 (70-100) H 09/14/18 08:47 Calcium 9.4 mg/dL (8.5-10.3) 09/29/18 05:53 Phosphorus 2.8 mg/dL (2.5-4.6) 09/20/18 04:20 Magnesium 1.9 mg/dL (1.7-2.8) 09/29/18 05:53 Iron 16 ug/dL (45-182) L 09/17/18 05:15 TIBC 160 ug/dL (250-450) L 09/17/18 05:15 % Saturation 10 % (20-50) L 09/17/18 05:15 Transferrin 114 mg/dL (180-329) L 09/17/18 05:15 Total Bilirubin 0.4 mg/dL (0.2-1.0) 09/29/18 05:53 AST 42 IU/L (10-42) 09/29/18 05:53 ALT 59 IU/L (10-60) 09/29/18 05:53 Alkaline Phosphatase 80 IU/L (42-121) 09/29/18 05:53 Troponin I < 0.04 ng/mL (<0.49) 09/14/18 19:49 Total Protein 8.0 g/dL (6.7-8.2) 09/29/18 05:53 Albumin 2.5 g/dL (3.2-5.5) L 09/29/18 05:53 Globulin 5.5 g/dL (2.1-4.2) H 09/29/18 05:53 Albumin/Globulin Ratio 0.5 (1.0-2.2) L 09/29/18 05:53 Lipase 35 U/L (22-51) 09/13/18 21:36 Vitamin B12 1110 pg/mL (180-914) H 09/17/18 05:15 Folate 21.00 ng/mL (5.90 - >24.8) 09/17/18 05:15 Urine Color YELLOW 09/14/18 09:30 Urine Clarity CLOUDY (CLEAR) 09/14/18 09:30 Urine pH 6.0 PH (5.0-7.5) 09/14/18 09:30 Ur Specific [place] 1.010 (1.002-1.030) 09/14/18 09:30 Urine Protein TRACE mg/dL (NEGATIVE) 09/14/18 09:30 Urine Glucose (UA) 100 mg/dL (NEGATIVE) H 09/14/18 09:30 Urine Ketones NEGATIVE mg/dL (NEGATIVE) 09/14/18 09:30 Urine Occult Blood TRACE-INTA (NEGATIVE) 09/14/18 09:30 Urine Nitrite NEGATIVE (NEGATIVE) 09/14/18 09:30 Urine Bilirubin NEGATIVE (NEGATIVE) 09/14/18 09:30 Urine Urobilinogen 0.2 (NORMAL) E.U./dL (NORMAL) 09/14/18 09:30 Ur Leukocyte Esterase SMALL (NEGATIVE) H 09/14/18 09:30 Urine RBC 0-5 /HPF (0-5) 09/14/18 09:30 Urine WBC 11-25 /HPF (0-3) H 09/14/18 09:30 Ur Squamous Epith Cells FEW Squamous (<= Few) 09/14/18 09:30 Urine Bacteria Many /HPF (None Seen) H 09/14/18 09:30 Urine Yeast PRESENT 09/14/18 09:30 Ur Microscopic Review INDICATED 09/13/18 22:12 Urine Culture Comments INDICATED 09/14/18 09:30 Urine Opiates Screen POSITIVE (NEGATIVE) H 09/18/18 08:59 Ur Oxycodone Screen NEGATIVE (NEGATIVE) 09/18/18 08:59 Urine Methadone Screen NEGATIVE (NEGATIVE) 09/18/18 08:59 Ur Propoxyphene Screen NEGATIVE (NEGATIVE) 09/18/18 08:59 Ur Barbiturates Screen NEGATIVE (NEGATIVE) 09/18/18 08:59 Ur Tricyclics Screen NEGATIVE (NEGATIVE) 09/18/18 08:59 Ur Phencyclidine Scrn NEGATIVE (NEGATIVE) 09/18/18 08:59 Ur Amphetamine Screen NEGATIVE (NEGATIVE) 09/18/18 08:59 U Methamphetamines Scrn NEGATIVE (NEGATIVE) 09/18/18 08:59 U Benzodiazepines Scrn POSITIVE (NEGATIVE) H 09/18/18 08:59 Urine Cocaine Screen NEGATIVE (NEGATIVE) 09/18/18 08:59 U Cannabinoids Screen NEGATIVE (NEGATIVE) 09/18/18 08:59 Serum Ketones NEGATIVE (NEGATIVE) 09/13/18 21:36
--- NOTE | 2018-09-30 18:59 | ADVANCE CARE PLANNING NOTE ---
Advance Care Planning - Date/Time Date: 09/30/18 Time: 17:00 - Purpose of encounter Text: To establish this patient's goals regarding aggressiveness of care and determine location of placement desired by him in the family. - Parties in attendance Parties in attendance: The patient was in a chair in his hospital room, his ex- was in the room (she has not seen him for 8 years, but they are friends and have a good relationship), both were speaking with me - Decisional capacity Decisional capacity of: Patient answers some questions appropriately such as knowing that he had a bowel movement several days ago, what he last ate, history of his childhood friends. He cannot remember being a meth user (or knowingly denies it), cannot remember having friends with drug habits who probably stole his diabetic needles. He asks when he will be discharged, and says he can go back to his trailer. The ex- states that is not a safe location because of the bad habits of his friends. The patient acquiesces but then states that he can manage things on his own, thinks he can walk in his trailer with a cane (he has only used a walker while here), thinks he can prepare his own meals at the counter. Patient shows no insight and poor memory, he appears to not have capacity to make informed decisions. His sister, Lesly, has been made the DPOA, earlier this year. - Subjective/Patient's story Subjective/Patient's story: Patient used meth 2 times a week for the past 10 years. He has had 3 admissions over the past 2 months for infections and complications with a mass abuse. His metabolic encephalopathy, moaning and obtundation were slow to clear on this admission, he now has a poor memory but is compliant, cooperative and pleasant. - Objective/Medical story Objective/Medical Story: Patient has multi-infarct dementia seen on brain imaging. He is able to walk with a walker, has a wide-based gait. The patient has a chronic indwelling Bryant, this was started at the last admission and continued this time because of prostatic hypertrophy. He was to see a urologist after the last admission but did not go to that appointment. He has a history of meth abuse, is edentulous, poorly nourished. Because of his stroke history, he has aspiration problems, needed treatment for an aspiration pneumonia on this presentation. His diet is therefore altered. He has stabilized from a medical standpoint and is ready for discharge. Discharging him to his trailer, where he lives alone, has friends that visit him who steal his needles and supply him with his drugs, is not a safe discharge plan. The [facility] has, in fact, has a list of people who are OK'd to let into his hospital room for visiting. The sister, son and ex- have stepped in and want him to go to a SNF for PT rehab and then several of them are trying to help find a permanent facility where he can live and be drug-free, possibly in [facility], closer to his son. When this was reviewed for the patient by myself and the ex-, he first thought he was still going home, thought he could walk with a cane, make his own food, could not remember anything about being a meth user. This shows he still has no insight and that the family's plans are appropriate - Goals of Care Goals of care determinations: Continue to have social work reach out and arrange for placement in a SNF for PT rehab or to an assisted living facility (for memory care) with in-home PT or, if he continues to progress with our PT, possibly have him discharged under the care of his family and be moved directly to [place]. - Plan Plan: As above in goals of Care. - Code Status Code Status: Do Not Attempt Resuscitation - Time Spent on Advance Care Planning Time spent on advance care plannin min
[2018-09-30] MEDS: DOXAZOSIN 1 MG TABLET PO SCH (20:28)
[2018-09-30] MEDS: PRAVASTATIN 40 MG TABLET PO SCH (20:28)
[2018-10-01] MEDS: ACETAMINOPHEN 325 MG TABLET PO PRN (02:02)
[2018-10-01] MEDS: CALCIUM CARBONATE CHEW 500 MG TABLET PO SCH ×3 (05:39→20:41)
[2018-10-01] MEDS ORDERED: ONDANSETRON ODT 4 MG TABLET TL PRN (06:53)
[2018-10-01] MEDS: INSULIN ASPART 300 UNIT/3 ML PEN SUBQ SCH ×7 (08:15→20:39)
[2018-10-01] MEDS: TAMSULOSIN 0.4 MG CAPSULE PO SCH (08:17)
[2018-10-01] MEDS: SERTRALINE 25 MG TABLET PO SCH (08:17)
[2018-10-01] MEDS: ASPIRIN 325 MG TABLET PO SCH (08:17)
[2018-10-01] MEDS: SENNA 8.6 MG TABLET PO SCH (08:17)
[2018-10-01] MEDS: MEMANTINE 5 MG TABLET PO SCH ×2 (08:18→20:38)
[2018-10-01] MEDS: MULTIVITAMIN TABLET PO SCH (08:18)
[2018-10-01] MEDS: FERROUS SULFATE 325 MG TABLET PO SCH (08:18)
[2018-10-01] MEDS: DOCUSATE SODIUM 250 MG CAPSULE PO SCH (08:18)
[2018-10-01] MEDS: guaiFENesin 600 MG TABLET PO SCH ×2 (08:18→20:41)
[2018-10-01] MEDS: GABAPENTIN 100 MG CAPSULE PO SCH ×2 (08:19→20:38)
--- NOTE | 2018-10-01 16:48 | PROVIDER PROGRESS NOTE ---
Assessment/Plan - Problem List (1) Multi-infarct dementia Qualifiers: Dementia behavioral disturbance: without behavioral disturbance Qualified Code(s): F01.50 - Vascular dementia without behavioral disturbance Assessment/Plan: Stable, patient is pleasant and ccoperative and is able to be redirected, by me and by , when in conversation. The sister Lesly, from [facility] is his DPOA, along with the patient's son from [place] and ex- in [place], want the patient go to SNF for PT rehab then plan to move him to [place] closer to the son and ex-. 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 (2) Methamphetamine abuse Assessment/Plan: There is a history of meth abuse for 10 years. He is edentulous. Patient intermittently forgets that he was a methamphetamine user. His ex- reminds him that people come to his trailer and visit him that might supply him with with meth, and therefore it is not a safe discharge. (3) Anemia Qualifiers: Anemia type: iron deficiency Assessment/Plan: He is tolerating p.o. iron replacement (4) Indwelling Bryant catheter present Assessment/Plan: He needs urology follow-up for possible TURP, until then he continues to have a chronic Bryant due to urinary tract obstruction (5) Recurrent UTI Assessment/Plan: Resolved, he has finished the antibx course (6) Aspiration pneumonia Assessment/Plan: Resolved, he finished the course of antibiotics and his diet has been altered by Speech Therapy, having done several swallowing evaluations. (7) Metabolic encephalopathy Assessment/Plan: This resolved with treatment of his UTI and aspiration pneumonia, treatment of his low back pain and probably finishing his withdrawal symptoms from meth abuse. There was no meth seen on this admission's drug screen, but it was positive on his previous 2 very recent admissions however. - Current Meds Current Meds: Current Medications Generic Name Dose Route Start Last Admin Trade Name Freq PRN Reason Stop Dose Admin Acetaminophen 650 mg 09/29/18 00:10 10/01/18 02:02 Tylenol PO 650 mg Q4HR PRN Administration Pain or Fever > 38C (100.4F) Aspirin 325 mg 09/19/18 11:00 10/01/18 08:17 Jairon PO 325 mg DAILYWM [facility] Administration Calcium Carbonate/Glycine 500 mg 09/26/18 22:00 10/01/18 13:41 Tums PO 500 mg TID [facility] Administration Docusate Sodium 250 - 500 mg 09/15/18 09:00 10/01/18 08:18 Colace 250mg Capsule PO 250 mg DAILY [facility] Administration Doxazosin Mesylate 1 mg 09/19/18 21:00 09/30/18 20:28 Cardura PO 1 mg QPM [facility] Administration Ferrous Sulfate 325 mg 09/20/18 08:00 10/01/18 08:18 Feosol PO 325 mg DAILYWM [facility] Administration Gabapentin 100 mg 09/30/18 09:00 10/01/18 08:19 Neurontin PO 100 mg BID [facility] Administration Guaifenesin 600 mg 09/28/18 21:00 10/01/18 08:18 Mucinex PO 600 mg BID [facility] Administration Insulin Aspart 3 - 11 unit 09/17/18 08:00 10/01/18 11:34 Novolog SUBQ 5 unit 0800,1200,1700,2100 [facility] Administration Protocol Insulin Aspart 8 unit 09/27/18 12:00 10/01/18 11:34 Novolog SUBQ 8 unit TIDWM [facility] Administration Protocol Insulin Glargine 12 unit 09/24/18 08:00 09/30/18 20:31 Lantus Solostar SUBQ 12 unit DAILY [facility] Administration Insulin Glargine 10 unit 09/24/18 21:00 09/30/18 20:50 Lantus Solostar SUBQ 10 unit QPM [facility] Administration Lidocaine 1 patch 09/15/18 16:37 09/27/18 09:51 Lidoderm Patch TOP 1 patch DAILY PRN Administration PAIN Memantine 5 mg 09/19/18 21:00 10/01/18 08:18 Namenda PO 5 mg BID [facility] Administration Multivitamins 1 tab 09/19/18 10:00 10/01/18 08:18 Theragran PO 1 tab DAILYWM [facility] Administration Polyethylene Glycol 17 gm 09/22/18 10:24 09/28/18 08:03 Miralax PO 17 gm DAILY PRN Administration Constipation Pravastatin Sodium 80 mg 09/19/18 21:00 09/30/18 20:28 Pravachol PO 80 mg QPM [facility] Administration Senna 8.6 - 17.2 mg 09/15/18 09:00 10/01/18 08:17 Senokot PO 8.6 mg DAILY [facility] Administration Sertraline HCl 12.5 mg 09/19/18 10:00 10/01/18 08:17 Zoloft PO 12.5 mg DAILY [facility] Administration Tamsulosin HCl 0.4 mg 09/20/18 09:00 10/01/18 08:17 Flomax PO 0.4 mg DAILY [facility] Administration Zolpidem Tartrate 5 mg 09/24/18 22:54 09/27/18 22:04 Ambien PO 5 mg QPM PRN Administration Insomnia - Lab Result Fish Bone Diagrams: 09/29/18 05:53 09/29/18 05:53 - Additional Planning My Orders: My Active Orders 10/01/18 Lunch Dysphagia Mechanically Altered Diet [DIET] Subjective - Subjective Patient Reports: Resting Comfortably, Other (Ex notices his poor memory of many facts.) Objective Vital Signs: Vital Signs - 24 hr 10/01/18 07:35 Temperature 36.2 C L Heart Rate [ 71 Brachial] Respiratory 18 Rate Blood Pressure 151/77 H [Right Brachial artery] O2 Saturation 95 Oxygen O2 Source [With Activity] Nasal cannula O2 Source Room air I&O (Last 24 Hrs): Intake and Output Totals x24h 09/29/18 09/30/18 10/01/18 23:59 23:59 23:59 Intake Total 20790 2059 Output Total 1999 1800 1600 Balance 80 -730 460 General: Alert HEENT: Mucous membr. moist/pink, Other (Edentulous) Neck: Supple, No JVD Neuro: Other (Poor memory, wide based gait, uses quad walker) Cardiovascular: Regular rate Respiratory: No respiratory distress Abdomen: Soft Extremities: No edema - Results Results: Laboratory Results WBC 7.6 x10^3/uL (4.8-10.8) 09/29/18 05:53 RBC 3.70 10^6/uL (4.70-6.10) L 09/29/18 05:53 Hgb 10.8 g/dL (14.0-18.0) L 09/29/18 05:53 Hct 32.8 % (42.0-52.0) L 09/29/18 05:53 MCV 88.7 fL (80.0-94.0) 09/29/18 05:53 MCH 29.1 pg (27.0-31.0) 09/29/18 05:53 MCHC 32.8 g/dL (32.0-36.0) 09/29/18 05:53 RDW 14.7 % (12.0-15.0) 09/29/18 05:53 Plt Count 486 10^3/uL (130-450) H 09/29/18 05:53 MPV 8.5 fL (7.4-11.4) 09/29/18 05:53 Neut # (Auto) 5.0 10^3/uL (1.5-6.6) 09/29/18 05:53 Lymph # (Auto) 1.7 10^3/uL (1.5-3.5) 09/29/18 05:53 [place] # (Auto) 0.6 10^3/uL (0.0-1.0) 09/29/18 05:53 Eos # (Auto) 0.3 10^3/uL (0.0-0.7) 09/29/18 05:53 Baso # (Auto) 0.1 10^3/uL (0.0-0.1) 09/29/18 05:53 Absolute Nucleated RBC 0.00 x10^3/uL 09/29/18 05:53 Nucleated RBC % 0.0 /100WBC 09/29/18 05:53 PT 13.2 secs (9.9-12.6) H 09/14/18 08:47 INR 1.2 (0.8-1.2) 09/14/18 08:47 Sodium 140 mmol/L (135-145) 09/29/18 05:53 Potassium 4.0 mmol/L (3.5-5.0) 09/29/18 05:53 Chloride 104 mmol/L (101-111) 09/29/18 05:53 Carbon Dioxide 25 mmol/L (21-32) 09/29/18 05:53 Anion Gap 11.0 (6-13) 09/29/18 05:53 BUN 22 mg/dL (6-20) H 09/29/18 05:53 Creatinine 1.1 mg/dL (0.6-1.2) 09/29/18 05:53 Estimated GFR (MDRD) 67 (>89) L 09/29/18 05:53 Glucose 126 mg/dL (70-100) H 09/29/18 05:53 POC Whole Bld Glucose 93 mg/dL (70 - 100) 10/01/18 16:28 Glycated Hemoglobin 10.0 % (4.6-6.2) H 09/14/18 08:47 Estim Average Glucose 240 (70-100) H 09/14/18 08:47 Calcium 9.4 mg/dL (8.5-10.3) 09/29/18 05:53 Phosphorus 2.8 mg/dL (2.5-4.6) 09/20/18 04:20 Magnesium 1.9 mg/dL (1.7-2.8) 09/29/18 05:53 Iron 16 ug/dL (45-182) L 09/17/18 05:15 TIBC 160 ug/dL (250-450) L 09/17/18 05:15 % Saturation 10 % (20-50) L 09/17/18 05:15 Transferrin 114 mg/dL (180-329) L 09/17/18 05:15 Total Bilirubin 0.4 mg/dL (0.2-1.0) 09/29/18 05:53 AST 42 IU/L (10-42) 09/29/18 05:53 ALT 59 IU/L (10-60) 09/29/18 05:53 Alkaline Phosphatase 80 IU/L (42-121) 09/29/18 05:53 Troponin I < 0.04 ng/mL (<0.49) 09/14/18 19:49 Total Protein 8.0 g/dL (6.7-8.2) 09/29/18 05:53 Albumin 2.5 g/dL (3.2-5.5) L 09/29/18 05:53 Globulin 5.5 g/dL (2.1-4.2) H 09/29/18 05:53 Albumin/Globulin Ratio 0.5 (1.0-2.2) L 09/29/18 05:53 Lipase 35 U/L (22-51) 09/13/18 21:36 Vitamin B12 1110 pg/mL (180-914) H 09/17/18 05:15 Folate 21.00 ng/mL (5.90 - >24.8) 09/17/18 05:15 Urine Color YELLOW 09/14/18 09:30 Urine Clarity CLOUDY (CLEAR) 09/14/18 09:30 Urine pH 6.0 PH (5.0-7.5) 09/14/18 09:30 Ur Specific Suches 1.010 (1.002-1.030) 09/14/18 09:30 Urine Protein TRACE mg/dL (NEGATIVE) 09/14/18 09:30 Urine Glucose (UA) 100 mg/dL (NEGATIVE) H 09/14/18 09:30 Urine Ketones NEGATIVE mg/dL (NEGATIVE) 09/14/18 09:30 Urine Occult Blood TRACE-INTA (NEGATIVE) 09/14/18 09:30 Urine Nitrite NEGATIVE (NEGATIVE) 09/14/18 09:30 Urine Bilirubin NEGATIVE (NEGATIVE) 09/14/18 09:30 Urine Urobilinogen 0.2 (NORMAL) E.U./dL (NORMAL) 09/14/18 09:30 Ur Leukocyte Esterase SMALL (NEGATIVE) H 09/14/18 09:30 Urine RBC 0-5 /HPF (0-5) 09/14/18 09:30 Urine WBC 11-25 /HPF (0-3) H 09/14/18 09:30 Ur Squamous Epith Cells FEW Squamous (<= Few) 09/14/18 09:30 Urine Bacteria Many /HPF (None Seen) H 09/14/18 09:30 Urine Yeast PRESENT 09/14/18 09:30 Ur Microscopic Review INDICATED 09/13/18 22:12 Urine Culture Comments INDICATED 09/14/18 09:30 Urine Opiates Screen POSITIVE (NEGATIVE) H 09/18/18 08:59 Ur Oxycodone Screen NEGATIVE (NEGATIVE) 09/18/18 08:59 Urine Methadone Screen NEGATIVE (NEGATIVE) 09/18/18 08:59 Ur Propoxyphene Screen NEGATIVE (NEGATIVE) 09/18/18 08:59 Ur Barbiturates Screen NEGATIVE (NEGATIVE) 09/18/18 08:59 Ur Tricyclics Screen NEGATIVE (NEGATIVE) 09/18/18 08:59 Ur Phencyclidine Scrn NEGATIVE (NEGATIVE) 09/18/18 08:59 Ur Amphetamine Screen NEGATIVE (NEGATIVE) 09/18/18 08:59 U Methamphetamines Scrn NEGATIVE (NEGATIVE) 09/18/18 08:59 U Benzodiazepines Scrn POSITIVE (NEGATIVE) H 09/18/18 08:59 Urine Cocaine Screen NEGATIVE (NEGATIVE) 09/18/18 08:59 U Cannabinoids Screen NEGATIVE (NEGATIVE) 09/18/18 08:59 Serum Ketones NEGATIVE (NEGATIVE) 09/13/18 21:36
[2018-10-01] MEDS: PRAVASTATIN 40 MG TABLET PO SCH (20:38)
[2018-10-01] MEDS: DOXAZOSIN 1 MG TABLET PO SCH (20:38)
[2018-10-01] MEDS: INSULIN GLARGINE 300 UNIT/3 ML PEN SUBQ SCH (20:39)
[2018-10-02] MEDS: CALCIUM CARBONATE CHEW 500 MG TABLET PO SCH ×3 (06:22→22:40)
[2018-10-02] MEDS: DOCUSATE SODIUM 250 MG CAPSULE PO SCH (08:54)
[2018-10-02] MEDS: FERROUS SULFATE 325 MG TABLET PO SCH (08:54)
[2018-10-02] MEDS: SERTRALINE 25 MG TABLET PO SCH (08:54)
[2018-10-02] MEDS: MULTIVITAMIN TABLET PO SCH (08:54)
[2018-10-02] MEDS: MEMANTINE 5 MG TABLET PO SCH ×2 (08:54→22:40)
[2018-10-02] MEDS: ASPIRIN 325 MG TABLET PO SCH (08:54)
[2018-10-02] MEDS: TAMSULOSIN 0.4 MG CAPSULE PO SCH (08:54)
[2018-10-02] MEDS: guaiFENesin 600 MG TABLET PO SCH ×2 (08:54→22:40)
[2018-10-02] MEDS: GABAPENTIN 100 MG CAPSULE PO SCH ×2 (08:55→22:40)
[2018-10-02] MEDS: INSULIN GLARGINE 300 UNIT/3 ML PEN SUBQ SCH ×2 (08:55→22:41)
[2018-10-02] MEDS: INSULIN ASPART 300 UNIT/3 ML PEN SUBQ SCH ×7 (08:55→22:41)
[2018-10-02] MEDS: SENNA 8.6 MG TABLET PO SCH (08:55)
--- NOTE | 2018-10-02 18:53 | PROVIDER PROGRESS NOTE ---
Subjective - Prog Note Date Prog Note Date: 10/02/18 Prog Note Time: 18:51 - Subjective Pt reports feeling: No change Current Medications - Current Medications Current Medications: Active Medications Acetaminophen (Tylenol) 650 mg PO Q4HR PRN PRN Reason: Pain or Fever > 38C (100.4F) Last Admin: 10/01/18 02:02 Dose: 650 mg Aspirin (Jairon) 325 mg PO DAILYWM [facility] Last Admin: 10/02/18 08:54 Dose: 325 mg Bisacodyl (Dulcolax Supp) 10 mg SC DAILY PRN PRN Reason: Constipation Calcium Carbonate/Glycine (Tums) 500 mg PO TID [facility] Last Admin: 10/02/18 13:06 Dose: Not Given Docusate Sodium (Colace 250mg Capsule) 250 - 500 mg PO DAILY [facility] Last Admin: 10/02/18 08:54 Dose: 250 mg Doxazosin Mesylate (Cardura) 1 mg PO QPM [facility] Last Admin: 10/01/18 20:38 Dose: 1 mg Ferrous Sulfate (Feosol) 325 mg PO DAILYWM [facility] Last Admin: 10/02/18 08:54 Dose: 325 mg Gabapentin (Neurontin) 100 mg PO BID [facility] Last Admin: 10/02/18 08:55 Dose: 100 mg Guaifenesin (Mucinex) 600 mg PO BID [facility] Last Admin: 10/02/18 08:54 Dose: 600 mg Insulin Aspart (Novolog) 3 - 11 unit SUBQ 0800,1200,1700,2100 [facility]; Protocol Last Admin: 10/02/18 16:27 Dose: Not Given Insulin Aspart (Novolog) 8 unit SUBQ TIDWM [facility]; Protocol Last Admin: 10/02/18 16:34 Dose: 8 unit Insulin Glargine (Lantus Solostar) 12 unit SUBQ DAILY [facility] Last Admin: 10/02/18 08:55 Dose: 12 unit Insulin Glargine (Lantus Solostar) 10 unit SUBQ QPM [facility] Last Admin: 10/01/18 20:39 Dose: 10 unit Lactulose (Lactulose) 20 gm PO DAILY PRN PRN Reason: BOWEL PROTOCOL Lidocaine (Lidoderm Patch) 1 patch TOP DAILY PRN PRN Reason: PAIN Last Admin: 09/27/18 09:51 Dose: 1 patch Lidocaine HCl (Xylocaine Uro-Jet 2%) 2.5 ml UR Q6H PRN PRN Reason: PAIN Memantine (Namenda) 5 mg PO BID [facility] Last Admin: 10/02/18 08:54 Dose: 5 mg Multivitamins (Theragran) 1 tab PO DAILYWM [facility] Last Admin: 10/02/18 08:54 Dose: 1 tab Ondansetron HCl (Zofran Odt) 4 mg TL Q6HR PRN PRN Reason: Nausea / Vomiting Polyethylene Glycol (Miralax) 17 gm PO DAILY PRN PRN Reason: Constipation Last Admin: 09/28/18 08:03 Dose: 17 gm Pravastatin Sodium (Pravachol) 80 mg PO QPM [facility] Last Admin: 10/01/18 20:38 Dose: 80 mg Prochlorperazine Edisylate (Compazine Inj) 10 mg IVP Q6HR PRN PRN Reason: Nausea / Vomiting Senna (Senokot) 8.6 - 17.2 mg PO DAILY [facility] Last Admin: 10/02/18 08:55 Dose: 8.6 mg Sertraline HCl (Zoloft) 12.5 mg PO DAILY [facility] Last Admin: 10/02/18 08:54 Dose: 12.5 mg Tamsulosin HCl (Flomax) 0.4 mg PO DAILY [facility] Last Admin: 10/02/18 08:54 Dose: 0.4 mg Zolpidem Tartrate (Ambien) 5 mg PO QPM PRN PRN Reason: Insomnia Last Admin: 09/27/18 22:04 Dose: 5 mg Aspirin [Aspir 81] 81 mg PO DAILY 11/17/12 Objective - Vital Signs/Intake & Output Reviewed Vital Signs: Yes Intake & Output: Intake & Output 09/29/18 09/30/18 10/01/18 10/02/18 23:59 23:59 23:59 23:59 Intake Total 2080 1070 2610 2120 Output Total 1999 1800 2250 1275 Balance 80 -730 360 845 - Objective General Appearance: positive: Alert Eyes Bilateral: positive: PERRL ENT: positive: Pharynx nml Respiratory: positive: Chest non-tender. negative: Wheezes, Rales, Rhonchi Cardiovascular: positive: Regular rate & rhythm. negative: Systolic murmur, Gallop/S4, Friction rub - Lab Results Fish Bones: 09/29/18 05:53 09/29/18 05:53 Other Labs: Lab Results x24hrs 10/02/18 10/02/18 10/02/18 Range/Units 16:25 11:17 07:23 POC Whole Bld Glucose 121 H 236 H 166 H (70 - 100) mg/dL 10/01/18 Range/Units 20:34 POC Whole Bld Glucose 203 H (70 - 100) mg/dL Assessment/Plan - Problem List (1) Multi-infarct dementia Impression: Stable, patient is pleasant and ccoperative and is able to be redirected, by me and by , when in conversation. The sister Lesly, from [facility] [place] is his DPOA, along with the patient's son from [place] and ex- in [place], want the patient go to SNF for PT rehab then plan to move him to [place] closer to the son and ex-. He has been calling his sister and she wants us to use ativan to sedate him. While here he has been easy to prompt and direct. I will hold off on that. 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 (2) Methamphetamine abuse Assessment/Plan: There is a history of meth abuse for 10 years. He is edentulous. Patient intermittently forgets that he was a methamphetamine user. His ex- reminds him that people come to his trailer and visit him that might supply him with with meth, and therefore it is not a safe discharge. (3) Anemia Qualifiers: Anemia type: iron deficiency Assessment/Plan: He is tolerating p.o. iron replacement (4) Indwelling Bryant catheter present Assessment/Plan: He needs urology follow-up for possible TURP, until then he continues to have a chronic Bryant due to urinary tract obstruction (5) Recurrent UTI Assessment/Plan: Resolved, he has finished the antibx course (6) Aspiration pneumonia Assessment/Plan: Resolved, he finished the course of antibiotics and his diet has been altered by Speech Therapy, having done several swallowing evaluations. (7) Metabolic encephalopathy Assessment/Plan: This resolved with treatment of his UTI and aspiration pneumonia, treatment of his low back pain and probably finishing his withdrawal symptoms from meth abuse. There was no meth seen on this admission's drug screen, but it was positive on his previous 2 very recent admissions however.
--- NOTE | 2018-10-02 18:54 | Discharge Plan ---
Discharge Plan Disposition: 02 Transfer Acute Care Hosp No Smoking: If you smoke, Please STOP! Call for help. Follow-up with: Calderon Hwang MD [Primary Care Provider] -
[2018-10-02] MEDS: DOXAZOSIN 1 MG TABLET PO SCH (22:40)
[2018-10-02] MEDS: PRAVASTATIN 40 MG TABLET PO SCH (22:40)
[2018-10-03] MEDS: CALCIUM CARBONATE CHEW 500 MG TABLET PO SCH ×3 (06:37→21:09)
[2018-10-03] MEDS: guaiFENesin 600 MG TABLET PO SCH ×2 (08:32→20:48)
[2018-10-03] MEDS: ASPIRIN 325 MG TABLET PO SCH (08:32)
[2018-10-03] MEDS: SERTRALINE 25 MG TABLET PO SCH (08:32)
[2018-10-03] MEDS: MULTIVITAMIN TABLET PO SCH (08:32)
[2018-10-03] MEDS: TAMSULOSIN 0.4 MG CAPSULE PO SCH (08:32)
[2018-10-03] MEDS: SENNA 8.6 MG TABLET PO SCH (08:32)
[2018-10-03] MEDS: DOCUSATE SODIUM 250 MG CAPSULE PO SCH (08:32)
[2018-10-03] MEDS: MEMANTINE 5 MG TABLET PO SCH ×2 (08:32→20:48)
[2018-10-03] MEDS: FERROUS SULFATE 325 MG TABLET PO SCH (08:36)
[2018-10-03] MEDS: GABAPENTIN 100 MG CAPSULE PO SCH ×2 (08:36→20:48)
[2018-10-03] MEDS: INSULIN ASPART 300 UNIT/3 ML PEN SUBQ SCH ×7 (08:38→20:50)
[2018-10-03] MEDS: INSULIN GLARGINE 300 UNIT/3 ML PEN SUBQ SCH ×2 (08:38→20:50)
--- NOTE | 2018-10-03 11:32 | PROVIDER PROGRESS NOTE ---
Subjective - Prog Note Date Prog Note Date: 10/03/18 Prog Note Time: 11:31 - Subjective Subjective: No new complaints, no new events. Current Medications - Current Medications Current Medications: Active Medications Acetaminophen (Tylenol) 650 mg PO Q4HR PRN PRN Reason: Pain or Fever > 38C (100.4F) Last Admin: 10/01/18 02:02 Dose: 650 mg Aspirin (Jairon) 325 mg PO DAILYWM [facility] Last Admin: 10/03/18 08:32 Dose: 325 mg Bisacodyl (Dulcolax Supp) 10 mg MD DAILY PRN PRN Reason: Constipation Calcium Carbonate/Glycine (Tums) 500 mg PO TID [facility] Last Admin: 10/03/18 06:37 Dose: Not Given Docusate Sodium (Colace 250mg Capsule) 250 - 500 mg PO DAILY [facility] Last Admin: 10/03/18 08:32 Dose: 250 mg Doxazosin Mesylate (Cardura) 1 mg PO QPM [facility] Last Admin: 10/02/18 22:40 Dose: 1 mg Ferrous Sulfate (Feosol) 325 mg PO DAILYWM [facility] Last Admin: 10/03/18 08:36 Dose: 325 mg Gabapentin (Neurontin) 100 mg PO BID [facility] Last Admin: 10/03/18 08:36 Dose: 100 mg Guaifenesin (Mucinex) 600 mg PO BID [facility] Last Admin: 10/03/18 08:32 Dose: 600 mg Insulin Aspart (Novolog) 3 - 11 unit SUBQ 0800,1200,1700,2100 [facility]; Protocol Last Admin: 10/03/18 08:39 Dose: 3 unit Insulin Aspart (Novolog) 8 unit SUBQ TIDWM [facility]; Protocol Last Admin: 10/03/18 08:38 Dose: 8 unit Insulin Glargine (Lantus Solostar) 12 unit SUBQ DAILY [facility] Last Admin: 10/03/18 08:38 Dose: 12 unit Insulin Glargine (Lantus Solostar) 10 unit SUBQ QPM [facility] Last Admin: 10/02/18 22:41 Dose: 10 unit Lactulose (Lactulose) 20 gm PO DAILY PRN PRN Reason: BOWEL PROTOCOL Lidocaine (Lidoderm Patch) 1 patch TOP DAILY PRN PRN Reason: PAIN Last Admin: 09/27/18 09:51 Dose: 1 patch Lidocaine HCl (Xylocaine Uro-Jet 2%) 2.5 ml UR Q6H PRN PRN Reason: PAIN Memantine (Namenda) 5 mg PO BID [facility] Last Admin: 10/03/18 08:32 Dose: 5 mg Multivitamins (Theragran) 1 tab PO DAILYWM [facility] Last Admin: 10/03/18 08:32 Dose: 1 tab Ondansetron HCl (Zofran Odt) 4 mg TL Q6HR PRN PRN Reason: Nausea / Vomiting Polyethylene Glycol (Miralax) 17 gm PO DAILY PRN PRN Reason: Constipation Last Admin: 09/28/18 08:03 Dose: 17 gm Pravastatin Sodium (Pravachol) 80 mg PO QPM [facility] Last Admin: 10/02/18 22:40 Dose: 80 mg Prochlorperazine Edisylate (Compazine Inj) 10 mg IVP Q6HR PRN PRN Reason: Nausea / Vomiting Senna (Senokot) 8.6 - 17.2 mg PO DAILY [facility] Last Admin: 10/03/18 08:32 Dose: 8.6 mg Sertraline HCl (Zoloft) 12.5 mg PO DAILY [facility] Last Admin: 10/03/18 08:32 Dose: 12.5 mg Tamsulosin HCl (Flomax) 0.4 mg PO DAILY [facility] Last Admin: 10/03/18 08:32 Dose: 0.4 mg Zolpidem Tartrate (Ambien) 5 mg PO QPM PRN PRN Reason: Insomnia Last Admin: 09/27/18 22:04 Dose: 5 mg Aspirin [Aspir 81] 81 mg PO DAILY 11/17/12 Objective - Vital Signs/Intake & Output Reviewed Vital Signs: Yes Vital Signs: Vital Signs x48h Temp Pulse Resp BP Pulse Ox 10/03/18 08:27 36.8 C 73 18 146/87 H 94 Intake & Output: Intake & Output 09/30/18 10/01/18 10/02/18 10/03/18 23:59 23:59 23:59 23:59 Intake Total 1070 2610 2606 350 Output Total 1800 2250 1775 1175 Balance -730 360 831 -825 - Objective General Appearance: positive: Alert Eyes Bilateral: positive: PERRL ENT: positive: Pharynx nml Neck: positive: No JVD Respiratory: positive: No respiratory distress. negative: Wheezes, Rales, Rhonchi Cardiovascular: positive: Regular rate & rhythm. negative: Gallop/S4, Friction rub Abdomen: positive: Non-tender, Nml bowel sounds, No distention Skin: positive: Warm, Dry - Lab Results Fish Bones: 09/29/18 05:53 09/29/18 05:53 Other Labs: Lab Results x24hrs 10/03/18 10/03/18 10/02/18 Range/Units 11:13 07:32 20:33 POC Whole Bld Glucose 208 H 166 H 159 H (70 - 100) mg/dL 10/02/18 Range/Units 16:25 POC Whole Bld Glucose 121 H (70 - 100) mg/dL Assessment/Plan - Problem List (1) Multi-infarct dementia Impression: Note remains unchanged. Nothing new to report. This is nonbillable rounding.Stable, patient is pleasant and ccoperative and is able to be redirected, by me and by , when in conversation. The sister Lesly, from [facility] is his DPOA, along with the patient's son from [place] and ex- in [place], want the patient go to SNF for PT re hab then plan to move him to [place] closer to the son and ex-. He has been calling his sister and she wants us to use ativan to sedate him. While here he has been easy to prompt and direct. I will hold off on that. 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 (2) Methamphetamine abuse Assessment/Plan: There is a history of meth abuse for 10 years. He is edentulous. Patient intermittently forgets that he was a methamphetamine user. His ex- reminds him that people come to his trailer and visit him that might supply him with with meth, and therefore it is not a safe discharge. (3) Anemia Qualifiers: Anemia type: iron deficiency Assessment/Plan: He is tolerating p.o. iron replacement (4) Indwelling Bryant catheter present Assessment/Plan: He needs urology follow-up for possible TURP, until then he continues to have a chronic Bryant due to urinary tract obstruction (5) Recurrent UTI Assessment/Plan: Resolved, he has finished the antibx course (6) Aspiration pneumonia Assessment/Plan: Resolved, he finished the course of antibiotics and his diet has been altered by Speech Therapy, having done several swallowing evaluations. (7) Metabolic encephalopathy Assessment/Plan: This resolved with treatment of his UTI and aspiration pneumonia, treatment of his low back pain and probably finishing his withdrawal symptoms from meth abuse. There was no meth seen on this admission's drug screen, but it was positive on his previous 2 very recent admissions however.
[2018-10-03] MEDS: PRAVASTATIN 40 MG TABLET PO SCH (20:47)
[2018-10-03] MEDS: DOXAZOSIN 1 MG TABLET PO SCH (20:48)
[2018-10-04] MEDS: CALCIUM CARBONATE CHEW 500 MG TABLET PO SCH ×3 (06:57→21:04)
--- NOTE | 2018-10-04 07:38 | PROVIDER PROGRESS NOTE ---
Subjective - Prog Note Date Prog Note Date: 10/04/18 Prog Note Time: 07:39 - Subjective Subjective: walking in room, eating, watching TV, easily prompted but he keeps on stating he wants to go home. Current Medications - Current Medications Current Medications: Active Medications Acetaminophen (Tylenol) 650 mg PO Q4HR PRN PRN Reason: Pain or Fever > 38C (100.4F) Last Admin: 10/01/18 02:02 Dose: 650 mg Aspirin (Jairon) 325 mg PO DAILYWM [facility] Last Admin: 10/03/18 08:32 Dose: 325 mg Bisacodyl (Dulcolax Supp) 10 mg LA DAILY PRN PRN Reason: Constipation Calcium Carbonate/Glycine (Tums) 500 mg PO TID [facility] Last Admin: 10/04/18 06:57 Dose: Not Given Docusate Sodium (Colace 250mg Capsule) 250 - 500 mg PO DAILY [facility] Last Admin: 10/03/18 08:32 Dose: 250 mg Doxazosin Mesylate (Cardura) 1 mg PO QPM [facility] Last Admin: 10/03/18 20:48 Dose: 1 mg Ferrous Sulfate (Feosol) 325 mg PO DAILYWM [facility] Last Admin: 10/03/18 08:36 Dose: 325 mg Gabapentin (Neurontin) 100 mg PO BID [facility] Last Admin: 10/03/18 20:48 Dose: 100 mg Guaifenesin (Mucinex) 600 mg PO BID [facility] Last Admin: 10/03/18 20:48 Dose: 600 mg Insulin Aspart (Novolog) 3 - 11 unit SUBQ 0800,1200,1700,2100 [facility]; Protocol Last Admin: 10/03/18 20:50 Dose: 7 unit Insulin Aspart (Novolog) 8 unit SUBQ TIDWM [facility]; Protocol Last Admin: 10/03/18 16:51 Dose: 8 unit Insulin Glargine (Lantus Solostar) 12 unit SUBQ DAILY [facility] Last Admin: 10/03/18 08:38 Dose: 12 unit Insulin Glargine (Lantus Solostar) 10 unit SUBQ QPM [facility] Last Admin: 10/03/18 20:50 Dose: 10 unit Lactulose (Lactulose) 20 gm PO DAILY PRN PRN Reason: BOWEL PROTOCOL Lidocaine (Lidoderm Patch) 1 patch TOP DAILY PRN PRN Reason: PAIN Last Admin: 09/27/18 09:51 Dose: 1 patch Lidocaine HCl (Xylocaine Uro-Jet 2%) 2.5 ml UR Q6H PRN PRN Reason: PAIN Memantine (Namenda) 5 mg PO BID [facility] Last Admin: 10/03/18 20:48 Dose: 5 mg Multivitamins (Theragran) 1 tab PO DAILYWM [facility] Last Admin: 10/03/18 08:32 Dose: 1 tab Ondansetron HCl (Zofran Odt) 4 mg TL Q6HR PRN PRN Reason: Nausea / Vomiting Polyethylene Glycol (Miralax) 17 gm PO DAILY PRN PRN Reason: Constipation Last Admin: 09/28/18 08:03 Dose: 17 gm Pravastatin Sodium (Pravachol) 80 mg PO QPM [facility] Last Admin: 10/03/18 20:47 Dose: 80 mg Prochlorperazine Edisylate (Compazine Inj) 10 mg IVP Q6HR PRN PRN Reason: Nausea / Vomiting Senna (Senokot) 8.6 - 17.2 mg PO DAILY [facility] Last Admin: 10/03/18 08:32 Dose: 8.6 mg Sertraline HCl (Zoloft) 12.5 mg PO DAILY [facility] Last Admin: 10/03/18 08:32 Dose: 12.5 mg Tamsulosin HCl (Flomax) 0.4 mg PO DAILY [facility] Last Admin: 10/03/18 08:32 Dose: 0.4 mg Zolpidem Tartrate (Ambien) 5 mg PO QPM PRN PRN Reason: Insomnia Last Admin: 09/27/18 22:04 Dose: 5 mg Aspirin [Aspir 81] 81 mg PO DAILY 11/17/12 Objective - Vital Signs/Intake & Output Reviewed Vital Signs: Yes Intake & Output: Intake & Output 10/01/18 10/02/18 10/03/18 10/04/18 23:59 23:59 23:59 23:59 Intake Total 2610 2606 1684 200 Output Total 2250 1775 2950 650 Balance 360 273 -0165 -450 - Objective General Appearance: positive: No acute distress, Alert Eyes Bilateral: positive: PERRL ENT: positive: Other (no teeth) Neck: positive: No JVD Respiratory: positive: No respiratory distress. negative: Wheezes, Rales, Rhonchi Cardiovascular: positive: Regular rate & rhythm, Systolic murmur. negative: Gallop/S4, Friction rub Abdomen: positive: Non-tender, No organomegaly, Nml bowel sounds, No distention Extremities: positive: No pedal edema Neurologic/Psychiatric: positive: CN's nml (2-12), Motor nml, Disoriented to time, Other (thought process erratic, jumps from topic to topic, at times doesn't appear to follow conversation, but will drop back into conversation and be appropriate for a time) - Lab Results Fish Bones: 09/29/18 05:53 09/29/18 05:53 Other Labs: Lab Results x24hrs 10/03/18 10/03/18 10/03/18 Range/Units 16:43 11:13 07:32 POC Whole Bld Glucose 125 H 208 H 166 H (70 - 100) mg/dL ABX Reporting Has patient been on IV antibiotics over the past 48 hours?: No Assessment/Plan - Problem List (1) Multi-infarct dementia Impression: Note remains unchanged. Nothing new to report. This is nonbillable rounding. Stable, patient is pleasant and ccoperative and is able to be redirected, by me and by , when in conversation. The sister Lesly, from [facility], which is his OA, along with the patient's son from [place] and ex- in [place], want the patient go to SNF for PT rehab then plan to move him to [place] closer to the son and ex-. He has been calling his sister and she wants us to use ativan to sedate him. While here he has been easy to prompt and direct. I will hold off on that. Social Work continues to call places for placement. 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 (2) Methamphetamine abuse Assessment/Plan: with cognitive deficit as a result and poor impulse control with poor judgement. There is a history of meth abuse for 10 years. He is edentulous. Patient intermittently forgets that he was a methamphetamine user. His ex- reminds him that people come to his trailer and visit him that might supply him with with meth, and therefore it is not a safe discharge. (3) Anemia Qualifiers: Anemia type: iron deficiency Assessment/Plan: He is tolerating p.o. iron replacement (4) Indwelling Bryant catheter present Assessment/Plan: He needs urology follow-up for possible TURP, until then he continues to have a chronic Bryant due to urinary tract obstruction (5) Recurrent UTI Assessment/Plan: Resolved, he has finished the antibx course (6) Aspiration pneumonia Assessment/Plan: Resolved, he finished the course of antibiotics and his diet has been altered by Speech Therapy, having done several swallowing evaluations. (7) Metabolic encephalopathy Assessment/Plan: This resolved with treatment of his UTI and aspiration pneumonia, treatment of his low back pain and probably finishing his withdrawal symptoms from meth abuse. There was no meth seen on this admission's drug screen, but it was positive on his previous 2 very recent admissions however. last few days of I\O show neg balance at times. Taking into account a 1 liter of insensate losses, needs to have water intake encouraged.
[2018-10-04] MEDS: SERTRALINE 25 MG TABLET PO SCH (08:28)
[2018-10-04] MEDS: MEMANTINE 5 MG TABLET PO SCH ×2 (08:28→21:06)
[2018-10-04] MEDS: ASPIRIN 325 MG TABLET PO SCH (08:28)
[2018-10-04] MEDS: TAMSULOSIN 0.4 MG CAPSULE PO SCH (08:28)
[2018-10-04] MEDS: SENNA 8.6 MG TABLET PO SCH (08:28)
[2018-10-04] MEDS: MULTIVITAMIN TABLET PO SCH (08:28)
[2018-10-04] MEDS: FERROUS SULFATE 325 MG TABLET PO SCH (08:28)
[2018-10-04] MEDS: GABAPENTIN 100 MG CAPSULE PO SCH ×2 (08:28→21:04)
[2018-10-04] MEDS: DOCUSATE SODIUM 250 MG CAPSULE PO SCH (08:28)
[2018-10-04] MEDS: POLYETHYLENE GLYCOL 3350 17 GM PACKET PO PRN (08:29)
[2018-10-04] MEDS: guaiFENesin 600 MG TABLET PO SCH ×2 (08:29→21:07)
[2018-10-04] MEDS: INSULIN GLARGINE 300 UNIT/3 ML PEN SUBQ SCH ×2 (08:32→21:10)
[2018-10-04] MEDS: INSULIN ASPART 300 UNIT/3 ML PEN SUBQ SCH ×7 (08:33→21:08)
[2018-10-04] MEDS: DOXAZOSIN 1 MG TABLET PO SCH (21:04)
[2018-10-04] MEDS: PRAVASTATIN 40 MG TABLET PO SCH (21:06)
[2018-10-05] MEDS ORDERED: GI COCKTAIL 120 ML BOTTLE PO PRN (00:28)
[2018-10-05] MEDS ORDERED: guaiFENesin/CODEINE 5 ML UDC PO PRN (00:29)
[2018-10-05] MEDS: CALCIUM CARBONATE CHEW 500 MG TABLET PO SCH ×2 (06:44→14:00)
[2018-10-05 07:35] VITALS: BP 131/73
[2018-10-05] MEDS: guaiFENesin 600 MG TABLET PO SCH (08:15)
[2018-10-05] MEDS: ASPIRIN 325 MG TABLET PO SCH (08:15)
[2018-10-05] MEDS: MEMANTINE 5 MG TABLET PO SCH (08:15)
[2018-10-05] MEDS: MULTIVITAMIN TABLET PO SCH (08:15)
[2018-10-05] MEDS: TAMSULOSIN 0.4 MG CAPSULE PO SCH (08:15)
[2018-10-05] MEDS: SERTRALINE 25 MG TABLET PO SCH (08:15)
[2018-10-05] MEDS: INSULIN ASPART 300 UNIT/3 ML PEN SUBQ SCH ×4 (08:16→11:48)
[2018-10-05] MEDS: POLYETHYLENE GLYCOL 3350 17 GM PACKET PO PRN (08:16)
[2018-10-05] MEDS: GABAPENTIN 100 MG CAPSULE PO SCH (08:16)
[2018-10-05] MEDS: FERROUS SULFATE 325 MG TABLET PO SCH (08:16)
[2018-10-05] MEDS: SENNA 8.6 MG TABLET PO SCH (08:16)
[2018-10-05] MEDS: DOCUSATE SODIUM 250 MG CAPSULE PO SCH (08:16)
[2018-10-05] MEDS: INSULIN GLARGINE 300 UNIT/3 ML PEN SUBQ SCH (08:18)
--- NOTE | 2018-10-05 14:05 | Discharge Plan ---
Discharge Plan Disposition: 01 Home, Self Care Condition: Good Prescriptions: Ferrous Gluconate [Fergon] 270 mg PO DAILY #30 tablet Gabapentin [Neurontin] 100 mg PO BID #60 capsule Sertraline [Zoloft] 12.5 mg PO DAILY #30 tablet Diet: Regular Activity Restrictions: Activity as Tolerated Shower Restrictions: No Driving Restrictions: Yes (no driving) Assistance Devices: Walker Instruction Topics: Gabapentin capsules or tablets Additional Instructions or Follow Up instructions: You were admitted to the hospital in acute distress. You were moaning, and you "hurt all over". You had severely elevated blood pressure, were confused, and severely deconditioned physically to the point that you were not walking correct ly and falling over. We eventually figured out that you had an obstructed bladder. You have urinary retention from a large prostate and needed a Bryant placed. It is not safe for you to go home because you have suffered quite a bit of memory loss from methamphetamine abuse. You are not able to take care of yourself anymore. As such you stayed in the hospital as we attempted to place you in a long-term facility that would be able to take you with your history and to do rehab on you. You stayed here long enough that you are now no longer needing rehabilitation/physical therapy. You have reached a new baseline of how you can walk, and take care of yourself but you cannot live alone. You need someone to look out for you. You will go home with your sister temporarily. At that point in time you and your sister have to figure out where it is you are going to live. Please make sure you follow a regular diet. That you check your sugars regularly. And that you take your insulin as instructed. You are now on iron tablets because you have iron deficiency anemia. You also need to take a B12/folate vitamin daily. Please see your primary care provider, Dr. Hwang, in the next 1 to 2 weeks. Follow-Up Care: Outpatient Rehab - PT No Smoking: If you smoke, Please STOP! Call for help. Follow-up with: Calderon Hwang MD [Primary Care Provider] -
--- NOTE | 2018-10-05 17:04 | DISCHARGE SUMMARY ---
Physician: Mally Montelongo MD DATE OF ADMISSION: 09/14/2018 DATE OF DISCHARGE: 10/05/2018 DISCHARGE DIAGNOSES 1. Metabolic encephalopathy. 2. Aspiration pneumonitis. 3. Right pleural effusion. 4. Mayi cystitis. 5. Multi-infarct dementia. 6. History of stroke. 7. History of methamphetamine abuse. 8. Type 2 diabetes mellitus, uncontrolled, with complications, on long-term use of insulin. 9. Iron deficiency anemia. 10. Urinary retention with Bryant in place. 11. Hydronephrosis with abnormal ureter and bladder on CT. 12. Acute on chronic kidney disease stage 3. 13. Hypomagnesemia. 14. Hypernatremia. 15. Moderate cognitive deficits secondary to substance abuse and multi-infarct dementia. 16. 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 DISCHARGE MEDICATIONS 1. Aspirin 81 mg daily. 2. Cardura 1 mg daily. 3. Fergon 270 mg daily. 4. Gabapentin 100 mg p.o. b.i.d. 5. Lantus 20 units subcutaneous b.i.d. 6. NovoLog sliding scale insulin t.i.d. 7. Zestril 20 mg daily. 8. Namenda 5 mg b.i.d. 9. Multivitamin with iron daily. 10. Pravachol 80 mg daily. 11. Zoloft 12.5 mg daily. 12. Flomax 0.4 mg daily. PRINCIPAL PROCEDURES 1. Three abdomen and pelvis CT done for abdominal pain. He has focal areas of consolidation in the right lower lobe. Coronary artery calcification. Thickening of the distal esophagus. Fatty infiltration of the liver. Normal spleen with mildly atrophic pancreas. Trace bilateral hydronephrosis, left greater than right. A large amount of stool in the colon. No aneurysm. Over the course of time, the patient received cathartics, and Bryant catheter was replaced. Hydronephrosis resolved and large amount of stool in the bowel resolved. However, he continues to have a loculated right pleural effusion on CT. Decreasing consolidation right lower lung. The right kidney was now normal. Upper pole of left kidney demonstrated heterogeneous appearance and decrease in enhancement as well as a hypodense lesion. Left ureter dilated throughout its course, and mucosa is hyperenhancing. Wall of the bladder is markedly thickened, and Bryant catheter is still in place. 2. Multiple chest x-rays done during the stay shows hazy right lung opacity with right mid lung base region airspace consolidation gradually improving. Aspiration is in the differential diagnosis. No pneumothorax. Small to medium right-sided pleural effusion, moderate right shoulder arthritis. 3. Head CT with stable age-related cortical atrophic changes and an old inferior right cerebellar infarction without evidence of acute intracranial abnormality. 4. Two urine cultures showing polymicrobial growth and yeast. HOSPITAL COURSE: This is a 63-year-old white male who is unfortunately suffering the consequences of long-term methamphetamine abuse and a history of a brain infarct. He was just admitted to the hospital here at our facility in August for urinary retention resulting in a Bryant placement, UTI, encephalopathy from methamphetamine abuse. Because his methamphetamine abuse and history of stroke have resulted in moderate cognitive deficit, the patient has poor judgment, poor insight, and can be impulsive. He also has cerebellar ataxia. After being treated in August for his acute kidney injury, hydronephrosis, UTI, and sent home with a Bryant, he was supposed to have seen neurology but never followed up. He lives alone in a trailer provided to him by his sister, but the people that come visit him are usually also abusing methamphetamines and will use his insulin needles for injection and take his SSI check for themselves. He now returns with confusion, moaning constantly. He was in the emergency room overnight and required several doses of narcotics using morphine, oxycodone, and Dilaudid. While being overnight in the emergency room, he had an abnormal UA, right lower lobe infiltrate, and the CT of the abdomen showed the hydronephrosis and a bowel loaded with stool. The plan had been to dose him with IV antibiotics, hydrate him, change his Bryant, and transition to p.o. antibiotics and discharge him to home. However, as he was getting out of the [facility], he had near-syncope in the emergency room and was excessively weak. He is a poor historian, because of his multi-infarct dementia, and has severe ataxia and cannot use his cane. He was admitted for the complications of all of this. His encephalopathy was felt to be due to urinary tract infection, the aspiration pneumonitis seen on CT of the abdomen as it cut through his lower lungs, and chest x-ray. He was felt to be aspirating because of his history of stroke, his obtundation, and his inability to follow prompts. He was started on Unasyn, also started on Diflucan for yeast seen in his urine. He was placed on telemetry, and he had some ectopic atrial arrhythmias, but nothing much more was seen. Blood cultures were not done. The patient could not stop moaning. When you would examine him and ask him what was hurting, he was unable to quantify why and where he was hurting. He just "hurt everywhere." He was so weak we needed to transfer him with a Judy lift. At first, we thought that he may be having alcohol withdrawal because of his previous history of alcohol abuse, but his sister presented herself after 24 hours of being on Ativan drip and said that he had not had a drink in a very long time. As such, a short-term treatment for CIWA was discontinued. We found him to have the hydronephrosis and felt that possibly his Bryant was obstructed even though he had some urine being produced. We changed his Bryant. In spite of changing the Bryant, he continued to have left hydronephrosis and the renal mass changes. In the first few days of his admission, he was doing so poorly with the encephalopathy, unable to eat, unable to swallow. We had him seen by Palliative Care, and we sat down and had a conference with his sister who is his power of prosecuting attorney, and his son, who drove up from [place]. Family felt that his quality of life had deteriorated to the point where he could no longer live by himself, but he was still trying to be fiercely independent. He was in an unsafe situation, and they did not know how far they wanted us to go with aggressive treatment of all these above problems. As such, he was transitioned to hospice on 09/20/2018. He was placed on comfort measures. On 09/21/2018, the hospitalist walked in that morning to find him sitting up in bed, comfortable, eating breakfast. By then, urinary obstruction had improved and the bowel loaded with stool had also improved. He was continued on Unasyn for the aspiration pneumonitis and then transitioned to oral Augmentin and completed therapy. For the yeast in his urine, he was started on IV Diflucan and then changed over to p.o. Between 09/21/2018 and now, the patient has continued to slowly improve. He initially met criteria for rehabilitation. Although he was medically cleared by around September 22 or , he was not a safe discharge because of his cerebellar ataxia, cognitive impairment, poor judgment, impulsive behavior. We attempted over several days to place him in several facilities throughout the [facility]. We have even attempted to place him in [facility] where his ex- lives and was willing to take him. However, no facilities had openings, and his history of methamphetamine abuse was problematic. Between 09/21/2018 and today, the patient has progressed with his physical therapy. His balance score is 12, and gait score is 9, with a combined Tinetti score of 21. He is at increased risk for falls, but he has improved tremendously. As of 09/28/2018, he no longer meets criteria for rehabilitation therapy. He has had some hallucinations requiring Zyprexa. He has had hiccups requiring gabapentin. Initially t.i.d. was too sedative, and he was decreased to b.i.d. Diabetes was managed with sliding scale insulin as well as regular Lantus. He was identified as having iron deficiency anemia and was placed on oral iron. His ectopic atrial rhythm, resolved. His dementia remained stable. He was placed on Namenda. He had some acute on chronic kidney disease with a rise in creatinine to 1.3, at discharge he is 1.1. Acute hypomagnesemia was treated with magnesium supplementation, and acute hypernatremia was treated with free water IV hydration. The patient finally reached stable status. He is unable to be placed permanently for his safety, but he no longer meets criteria for rehabilitation in a assisted facility, nor does he meet any medical criteria to be in the hospital. He is going to be discharged to his sister's care. She is understandably frustrated and overwhelmed with the idea of taking care of her brother. She is in the midst of selling his trailer, since he was not to return to that trailer. [facility] Director has worked carefully with this patient and his family, mainly Lesly. It is hoped that the family will be able to find him a residential facility through the help of social work. At discharge, he is ambulating with a wide-based gait, does not like using a walker. Prefers to use his cane. He is alert to person and place, but not time. Memory can be occasionally poor, but he does follow prompts, and there have been no behavioral disorders during his stay. He has at times been quite a pleasant, cooperative gentleman. Temperature is 36.9, pulse is 72, blood pressure is 131/73, respirations 18, 94% on room air. He is able to feed himself, able to get up to go to the bathroom by himself. He has a Bryant catheter in place. Regular rate and rhythm. A benign abdomen. Shuffling gait with no leg edema. Greater than 30 minutes was spent coordinating discharge. It is recommended that the patient continue to get outpatient physical therapy and occupational therapy, and that he be seen in followup with urology for the Bryant and get a cystogram for the abnormal CT findings of his bladder and ureter, and that a chest x-ray be done to follow the pleural effusion. Although he was transitioned to hospice, I do not think this patient is a hospice candidate any longer. cc: Calderon Hwang MD TD: 10/05/2018 16:16 [facility]
== END 2018-10-05 14:49 | disposition home or self-care (01) | DRG 177 ==
LOC: EDUNIT# → EDBD → ED 21:18 → MS2 09-14 08:05
PROVIDERS: ADMIT Internal Medicine; ATTEND Specialist
DX: N39.0 Urinary tract infection, site not specified (principal); J18.1 Lobar pneumonia, unspecified organism; J69.0 Pneumonitis due to inhalation of food and vomit; G93.41 Metabolic encephalopathy; T83.511A Infection and inflammatory reaction due to indwelling urethral catheter, initial encounter; N13.30 Unspecified hydronephrosis; I10 Essential (primary) hypertension; B37.41 Candidal cystitis and urethritis; E87.0 Hyperosmolality and hypernatremia; G11.9 Hereditary ataxia, unspecified; Z96.0 Presence of urogenital implants; N13.8 Other obstructive and reflux uropathy; N17.9 Acute kidney failure, unspecified; G93.1 Anoxic brain damage, not elsewhere classified; I69.351 Hemiplegia and hemiparesis following cerebral infarction affecting right dominant side; R64 Cachexia; R06.6 Hiccough; I49.8 Other specified cardiac arrhythmias; I69.393 Ataxia following cerebral infarction; I69.311 Memory deficit following cerebral infarction; I69.318 Other symptoms and signs involving cognitive functions following cerebral infarction; I69.391 Dysphagia following cerebral infarction; R13.12 Dysphagia, oropharyngeal phase; D50.9 Iron deficiency anemia, unspecified; E11.22 Type 2 diabetes mellitus with diabetic chronic kidney disease; N18.3 Chronic kidney disease, stage 3 (moderate); E83.42 Hypomagnesemia; F15.188 Other stimulant abuse with other stimulant-induced disorder; R55 Syncope and collapse; N40.1 Benign prostatic hyperplasia with lower urinary tract symptoms; R33.8 Other retention of urine; E83.39 Other disorders of phosphorus metabolism; K59.00 Constipation, unspecified; R62.7 Adult failure to thrive; I25.10 Atherosclerotic heart disease of native coronary artery without angina pectoris; Z51.5 Encounter for palliative care; Z60.2 Problems related to living alone; F32.9 Major depressive disorder, single episode, unspecified; F10.10 Alcohol abuse, uncomplicated; I13.10 Hypertensive heart and chronic kidney disease without heart failure, with stage 1 through stage 4 chronic kidney disease, or unspecified chronic kidney disease; F41.9 Anxiety disorder, unspecified; G89.29 Other chronic pain; E78.00 Pure hypercholesterolemia, unspecified; Z66 Do not resuscitate; E11.65 Type 2 diabetes mellitus with hyperglycemia; Y84.6 Urinary catheterization as the cause of abnormal reaction of the patient, or of later complication, without mention of misadventure at the time of the procedure; Y92.029 Unspecified place in mobile home as the place of occurrence of the external cause; I69.322 Dysarthria following cerebral infarction; N30.20 Other chronic cystitis without hematuria; F06.8 Other specified mental disorders due to known physiological condition; M54.5 Low back pain; K44.9 Diaphragmatic hernia without obstruction or gangrene; K21.9 Gastro-esophageal reflux disease without esophagitis; F01.50 Vascular dementia, unspecified severity, without behavioral disturbance, psychotic disturbance, mood disturbance, and anxiety; R40.0 Somnolence; T42.6X5A Adverse effect of other antiepileptic and sedative-hypnotic drugs, initial encounter; Y92.230 Patient room in hospital as the place of occurrence of the external cause; K08.109 Complete loss of teeth, unspecified cause, unspecified class; Z79.4 Long term (current) use of insulin; Z79.82 Long term (current) use of aspirin; Z79.899 Other long term (current) drug therapy; Z91.81 History of falling; Z91.19 Patient's noncompliance with other medical treatment and regimen; Z68.26 Body mass index [BMI] 26.0-26.9, adult; Z74.01 Bed confinement status; Z91.11 Patient's noncompliance with dietary regimen
CPT/HCPCS: 36415; 70450; 71045; 71046; 74176; 74177; 80048; 80053; 80069; 81001; 82009; 82607; 82746; 83036; 83540; 83690; 83735; 84466; 84484; 85025; 85610; 87086; 92526; 93005; 96361; 96372; 96374; 96375; 97110; 97116; 97162; 97166; 97530; 97535; 99223; 99233; 99284; A9270; J0131; J1170; J1815; J2060; J2270; J2916; J3411; Q9967; 80306; 81003; 99285

== ENCOUNTER 2019-02-19 21:35 | Outpatient (CLI) | payer MEDICARE, MEDICAID | END 2019-02-19 21:36 | disposition critical access hospital (66) | LOC: EMS 21:35 | PROVIDERS: ATTEND Surgery | DX: R10.30 Lower abdominal pain, unspecified (principal); R39.89 Other symptoms and signs involving the genitourinary system | CPT/HCPCS: A0425; A0429 ==

== ENCOUNTER 2019-02-19 22:05 | Emergency (ER) | payer MEDICARE, MEDICAID ==
--- NOTE | 2019-02-19 23:10 | ED Physician Documentation ---
PD HPI MALE - Stated complaint Stated Complaint: BLOCKED CATH - Chief complaint Chief Complaint: Abd Pain - History obtained from History obtained from: Patient - History of Present Illness Timing - onset: Yesterday Timing - duration: Days (1) Timing - details: Abrupt onset Associated symptoms: Unable to urinate, Abdominal pain, Indwelling catheter (pt states he has an indwelling catheter for prostate issues. He had the lara placed 3 days ago by his nurse. He denies blood in the catheter.). No: Dysuria, Urinary frequency, Hematuria, Discharge PD HPI MALE CONTRIB FACTORS: Not sexually active Similar symptoms before: Other (prior hx of urinary retention from prostate issues) Recently seen: Not recently seen - Treatment prior to arrival Treatment prior to arrival: none - Additional information Additional information: Denies fever or vomiting Review of Systems Ten Systems: 10 systems reviewed and negative Constitutional: denies: Fever, Chills Throat: reports: Reviewed and negative. denies: Sore throat Cardiac: reports: Reviewed and negative Respiratory: reports: Reviewed and negative GI: reports: Reviewed and negative : reports: Unable to Void. denies: Hematuria, Discharge Skin: reports: Reviewed and negative Immunocompromised: reports: Reviewed and negative PD PAST MEDICAL HISTORY - Past Medical History Past Medical History: Yes Cardiovascular: Hypertension, High cholesterol Respiratory: Pneumonia Neuro: Cerebral palsy, CVA, Other Endocrine/Autoimmune: Type 2 diabetes GI: None : Benign prostate hypertrophy, Retention, Chronic bladder infection, Renal insuffiency, Indwelling catheter Psych: Depression, Anxiety Musculoskeletal: Fatigue, Chronic back pain Derm: None - Past Surgical History Past Surgical History: Yes - Present Medications Home Medications: Ambulatory Orders Medication Instructions Recorded Confirmed Aspirin [Aspir 81] 81 mg PO DAILY 11/17/12 09/14/18 Doxazosin [Cardura] 1 mg PO QPM #30 tablet 08/27/18 09/14/18 Insulin Aspart (Vial) [NovoLOG 10 - 20 unit SQ TIDWM #1 vial 08/27/18 09/14/18 (VIAL FOR ED USE)] Insulin Glargine [Lantus Solostar] 20 unit SUBQ BID #1 pen 08/27/18 09/14/18 Lisinopril [Zestril] 20 mg PO DAILY #30 tablet 08/27/18 09/14/18 Memantine [Namenda] 5 mg PO BID #60 tablet 08/27/18 09/14/18 Multivit,Th Iron,Other Min 1 each PO DAILY #30 tablet 08/27/18 09/14/18 [Thera-M] Pravastatin Sodium [Pravachol] 80 mg PO QPM #30 tablet 08/27/18 09/14/18 Tamsulosin [Flomax] 0.4 mg PO DAILY #30 capsule 08/27/18 09/14/18 Ferrous Gluconate [Fergon] 270 mg PO DAILY #30 tablet 10/05/18 Gabapentin [Neurontin] 100 mg PO BID #60 capsule 10/05/18 Multivitamin [Theragran] 1 tab PO DAILYWM tablet 10/05/18 Sertraline [Zoloft] 12.5 mg PO DAILY #30 tablet 10/05/18 Cefpodoxime Proxetil 200 mg PO BID 14 Days #28 tablet 02/20/19 - Allergies Allergies/Adverse Reactions: Allergies Allergy/AdvReac Type Severity Reaction Status Date / Time No Known Drug Allergies Allergy Verified 02/19/19 22:12 - Social History Does the pt smoke?: No Smoking Status: Never smoker Does the pt drink ETOH?: No Does the pt have substance abuse?: Yes - Immunizations Immunizations are current?: Yes - POLST Patient has POLST: Yes PD ED PE NORMAL - Vitals Vital signs reviewed: Yes - General General: Alert and oriented X 3, Well developed/nourished, Other (appears uncomfortable, pt is unkempt, smells of urine) - HEENT HEENT: Atraumatic, Pharynx benign - Neck Neck: Supple, no meningeal sign, No JVD - Cardiac Cardiac: RRR - Respiratory Respiratory: No respiratory distress - Abdomen Abdomen: Soft, Other (lower abdominal distension and suprapubic tenderness) - Male Male : Other (lara catheter in place with empty leg bag and hair tourniquets around his catheter) - Rectal Rectal: Deferred - Back Back: No CVA TTP - Derm Derm: Normal color, Warm and dry, No rash - Extremities Extremities: No edema - Neuro Neuro: Alert and oriented X 3 Eye Opening: Spontaneous Motor: Obeys Commands Verbal: Oriented GCS Score: 15 - Psych Psych: Normal mood, Normal affect Results - Vitals Vitals: Vital Signs - 24 hr 02/19/19 02/20/19 22:12 00:35 Temperature 36.8 C Heart Rate 108 H 95 Respiratory 20 17 Rate Blood Pressure 182/125 H 115/73 O2 Saturation 95 96 Oxygen O2 Source [With Activity] Nasal cannula O2 Source Room air - Labs Labs: Laboratory Tests 02/19/19 02/19/19 02/19/19 22:51 23:14 23:14 WBC 17.1 H RBC 4.77 Hgb 14.2 Hct 41.6 L MCV 87.2 MCH 29.8 MCHC 34.1 RDW 12.7 Plt Count 262 MPV 10.1 Neut # (Auto) 15.7 H Lymph # (Auto) 0.4 L [place] # (Auto) 0.7 Eos # (Auto) 0.2 Baso # (Auto) 0.1 Absolute Nucleated RBC 0.00 Nucleated RBC % 0.0 Sodium 139 Potassium 3.6 Chloride 107 Carbon Dioxide 23 Anion Gap 9.0 BUN 30 H Creatinine 1.6 H Estimated GFR (MDRD) 43 L Glucose 214 H Calcium 9.5 Urine Color YELLOW Urine Clarity CLOUDY Urine pH >=9.0 H Ur Specific [place] 1.015 Urine Protein >=300 H Urine Glucose (UA) 250 H Urine Ketones NEGATIVE Urine Occult Blood SMALL H Urine Nitrite POSITIVE H Urine Bilirubin NEGATIVE Urine Urobilinogen 0.2 (NORMAL) Ur Leukocyte Esterase LARGE H Urine RBC 0-5 Urine WBC >25 H Ur Squamous Epith Cells NONE SEEN Urine Bacteria Many H Urine Culture Comments INDICATED UTI present, mild OMER , moderate leukocytosis likely due to his UTI PD MEDICAL DECISION MAKING - ED course Complexity details: reviewed old records, reviewed results, re-evaluated patient, considered differential, d/w patient, d/w family ED course: ddx - acute renal failure, uti, lara catheter dysfunction, acute urinary retention 64 y/o M with bladder discomfort found to be in acute urinary retention due to a clogged lara catheter. Pt also noted to have a UTI. After placement of a new lara he had over 600cc of urine output. I started him on ceftriaxone for his UTI. He has a leukocytosis likely due to the UTI. He however is afebrile, not septic with stable vitals and is now adequately urinating without difficulty thus will start him on outpt antibiotics for a catheter associated UTI. He does have a mild Omer which I anticipate with improve now that he is not obstructed. Discussed with the pt his results and need to f/u with his PCP for a recheck of his labs and symptoms. Also given return precautions in case of fever, inability to urinate or other worsening symptoms. Departure - Departure Disposition: 01 Home, Self Care Clinical Impression: Acute urinary retention, UTI (urinary tract infection) due to urinary indwelling catheter Condition: Stable Instructions: ED UTI Cystitis Male Follow-Up: Calderon Hwang MD [Primary Care Provider] - Within 1 week (to recheck your kidney function and your UTI) Prescriptions: Cefpodoxime Proxetil 200 mg PO BID 14 Days #28 tablet Comments: You have a urinary tract infection as well as as urinary retention and mild renal insufficiency. You need to follow up with your doctor this week to recheck your symptoms as well as your kidney function. Take the prescribed antibiotic and return to the ED if you develop worsening symptoms or inability to urinate through the catheter.
[2019-02-19 23:18] LABS: BASOPHILS # (AUTO) 0.1 10^3/uL (0.0-0.1); BASOPHILS % (AUTO) 0.3 %; EOSINOPHILS # (AUTO) 0.2 10^3/uL (0.0-0.7); EOSINOPHILS % (AUTO) 0.9 %; HGB - HEMOGLOBIN 14.2 g/dL (14.0-18.0); LYMPHOCYTES # (AUTO) 0.4 10^3/uL (1.5-3.5); LYMPHOCYTES % (AUTO) 2.2 %; MEAN CORPUSCULAR HEMOGLOBIN 29.8 pg (27.0-31.0); MEAN CORPUSCULAR HGB CONC 34.1 g/dL (32.0-36.0); MEAN CORPUSCULAR VOLUME 87.2 fL (80.0-94.0); MEAN PLATELET VOLUME 10.1 fL (7.4-11.4); MONOCYTES # (AUTO) 0.7 10^3/uL (0.0-1.0); MONOCYTES % (AUTO) 4.3 %; NEUTROPHILS # (AUTO) 15.7 10^3/uL (1.5-6.6); NEUTROPHILS % (AUTO) 91.8 %; PLT - PLATELET COUNT 262 10^3/uL (130-450); RED BLOOD COUNT 4.77 10^6/uL (4.70-6.10); RED CELL DISTRIBUTION WIDTH 12.7 % (12.0-15.0); WHITE BLOOD COUNT 17.1 x10^3/uL (4.8-10.8)
[2019-02-19 23:25] LABS: CALCIUM 9.5 mg/dL (8.5-10.3); CREATININE 1.6 mg/dL (0.6-1.2)
[2019-02-19 23:31] LABS: BILIRUBIN,URINE NEGATIVE (NEGATIVE); GLUCOSE, URINE (UA) 250 mg/dL (NEGATIVE); KETONES,URINE (UA) NEGATIVE (NEGATIVE); LEUKOCYTE ESTERASE, URINE LARGE (NEGATIVE); NITRITE,URINE POSITIVE (NEGATIVE); OCCULT BLOOD,URINE SMALL (NEGATIVE); PH,URINE >=9.0 PH (5.0-7.5); PROTEIN,URINE >=300 mg/dL (NEGATIVE); UROBILINOGEN,URINE 0.2 (NORMAL) E.U./dL (NORMAL)
[2019-02-19 23:32] LABS: CLARITY,URINE CLOUDY (CLEAR)
[2019-02-19 23:39] LABS: BACTERIA,URINE Many /HPF (None Seen); RBC,URINE 0-5 /HPF (0-5); SQUAMOUS EPITHELIAL CELL,UR NONE SEEN (<= Few)
[2019-02-19] MEDS ORDERED: cefTRIAXone 2 GM in SODIUM CHLORIDE 0.9% MINIBAG 100 ML IV STA (23:46)
[2019-02-20 00:41] VITALS: BP 115/73
== END 2019-02-20 01:07 | disposition home or self-care (01) ==
LOC: EDUNIT# → ED 22:05
DX: T83.091A Other mechanical complication of indwelling urethral catheter, initial encounter (principal); T83.511A Infection and inflammatory reaction due to indwelling urethral catheter, initial encounter; Y84.6 Urinary catheterization as the cause of abnormal reaction of the patient, or of later complication, without mention of misadventure at the time of the procedure; N17.9 Acute kidney failure, unspecified; N40.1 Benign prostatic hyperplasia with lower urinary tract symptoms; R33.8 Other retention of urine; G80.9 Cerebral palsy, unspecified; I10 Essential (primary) hypertension; E11.9 Type 2 diabetes mellitus without complications; Z79.4 Long term (current) use of insulin; Z79.82 Long term (current) use of aspirin
CPT/HCPCS: 36415; 51702; 80048; 81001; 85025; 87077; 87086; 87181; 96365; 99283

== ENCOUNTER 2019-03-05 17:58 | Outpatient (CLI) | payer MEDICARE, MEDICAID | END 2019-03-05 17:59 | disposition critical access hospital (66) | LOC: EMS 17:58 | PROVIDERS: ATTEND Surgery | DX: R11.2 Nausea with vomiting, unspecified (principal) | CPT/HCPCS: A0425; A0429 ==

== ENCOUNTER 2019-03-05 18:03 | Inpatient (IN) | payer MEDICARE, MEDICAID ==
[2019-03-05 18:39] LABS: BASOPHILS # (AUTO) 0.1 10^3/uL (0.0-0.1); BASOPHILS % (AUTO) 0.4 %; HGB - HEMOGLOBIN 13.4 g/dL (14.0-18.0); LYMPHOCYTES % (AUTO) 16.3 %; MEAN CORPUSCULAR HEMOGLOBIN 29.2 pg (27.0-31.0); MEAN CORPUSCULAR VOLUME 88.5 fL (80.0-94.0); MEAN PLATELET VOLUME 10.9 fL (7.4-11.4); MONOCYTES # (AUTO) 0.8 10^3/uL (0.0-1.0); MONOCYTES % (AUTO) 6.1 %; NEUTROPHILS # (AUTO) 9.5 10^3/uL (1.5-6.6); NEUTROPHILS % (AUTO) 76.7 %; PLT - PLATELET COUNT 345 10^3/uL (130-450); RED BLOOD COUNT 4.59 10^6/uL (4.70-6.10); RED CELL DISTRIBUTION WIDTH 12.9 % (12.0-15.0); WHITE BLOOD COUNT 12.4 x10^3/uL (4.8-10.8)
[2019-03-05 18:50] LABS: ALBUMIN 3.7 g/dL (3.2-5.5); ALBUMIN/GLOBULIN RATIO 0.9 (1.0-2.2); BILIRUBIN,TOTAL 0.7 mg/dL (0.2-1.0); CALCIUM 9.8 mg/dL (8.5-10.3); CREATININE 1.3 mg/dL (0.6-1.2)
--- NOTE | 2019-03-05 18:58 | ED Physician Documentation ---
PD HPI NVD - Stated complaint Stated Complaint: AB PX - Chief complaint Chief Complaint: Abd Pain - History of Present Illness Timing - onset: Other (64-year-old gentleman presents by ambulance for vomiting. He has very poor memory and really cannot provide a history of what is going on. The jail doctor did not call me prior to transport. Report from the pathology lab technician suggest that he is been vomiting and just got out of [place]. I th ink for CVA and may be acute renal failure based on the paperwork that accompanies him. When I talked to the patient he says his only complaint is the IV start.) Review of Systems Unable to obtain: Confused PD PAST MEDICAL HISTORY - Past Medical History Cardiovascular: Hypertension, High cholesterol Respiratory: Pneumonia Neuro: Cerebral palsy, CVA, Other Endocrine/Autoimmune: Type 2 diabetes GI: None : Benign prostate hypertrophy, Retention, Chronic bladder infection, Renal insuffiency, Indwelling catheter Psych: Depression, Anxiety Musculoskeletal: Fatigue, Chronic back pain Derm: None - Past Surgical History Past Surgical History: Yes - Present Medications Home Medications: Ambulatory Orders Medication Instructions Recorded Confirmed Aspirin [Aspir 81] 81 mg PO DAILY 11/17/12 09/14/18 Doxazosin [Cardura] 1 mg PO QPM #30 tablet 08/27/18 09/14/18 Insulin Aspart (Vial) [NovoLOG 10 - 20 unit SQ TIDWM #1 vial 08/27/18 09/14/18 (VIAL FOR ED USE)] Insulin Glargine [Lantus Solostar] 20 unit SUBQ BID #1 pen 08/27/18 09/14/18 Lisinopril [Zestril] 20 mg PO DAILY #30 tablet 08/27/18 09/14/18 Memantine [Namenda] 5 mg PO BID #60 tablet 08/27/18 09/14/18 Multivit,Th Iron,Other Min 1 each PO DAILY #30 tablet 08/27/18 09/14/18 [Thera-M] Pravastatin Sodium [Pravachol] 80 mg PO QPM #30 tablet 08/27/18 09/14/18 Tamsulosin [Flomax] 0.4 mg PO DAILY #30 capsule 08/27/18 09/14/18 Ferrous Gluconate [Fergon] 270 mg PO DAILY #30 tablet 10/05/18 Gabapentin [Neurontin] 100 mg PO BID #60 capsule 10/05/18 Multivitamin [Theragran] 1 tab PO DAILYWM tablet 10/05/18 Sertraline [Zoloft] 12.5 mg PO DAILY #30 tablet 10/05/18 Cefpodoxime Proxetil 200 mg PO BID 14 Days #28 tablet 02/20/19 - Allergies Allergies/Adverse Reactions: Allergies Allergy/AdvReac Type Severity Reaction Status Date / Time No Known Drug Allergies Allergy Verified 03/05/19 18:20 - Social History Does the pt smoke?: No Smoking Status: Never smoker Does the pt drink ETOH?: No Does the pt have substance abuse?: Yes - Immunizations Immunizations are current?: Yes - POLST Patient has POLST: Yes PD ED PE NORMAL - Vitals Vital signs reviewed: Yes - General General: Other (He is alert and oriented to person only. He does not know why he is here.) - HEENT HEENT: PERRL, EOMI - Neck Neck: Supple, no meningeal sign, No bony TTP - Cardiac Cardiac: RRR, No murmur - Respiratory Respiratory: No respiratory distress, Clear bilaterally - Abdomen Abdomen: Other (Slightly diminished but not absent bowel tones, no tenderness.) - Male Male : Other (Lara catheter in place, clear urine) - Derm Derm: Normal color, Warm and dry - Extremities Extremities: No edema, No calf tenderness / cord Results - Vitals Vitals: Vital Signs - 24 hr 03/05/19 03/05/19 03/05/19 18:15 19:48 21:34 Temperature 36.9 C 37.1 C Heart Rate 81 80 83 Respiratory 20 18 18 Rate Blood Pressure 151/93 H 139/89 H 139/93 H O2 Saturation 99 97 95 Oxygen O2 Source [] Nasal cannula O2 Source Room air - Labs Labs: Laboratory Tests 03/05/19 03/05/19 03/05/19 18:31 18:31 19:35 WBC 12.4 H RBC 4.59 L Hgb 13.4 L Hct 40.6 L MCV 88.5 MCH 29.2 MCHC 33.0 RDW 12.9 Plt Count 345 MPV 10.9 Neut # (Auto) 9.5 H Lymph # (Auto) 2.0 [place] # (Auto) 0.8 Eos # (Auto) 0.0 Baso # (Auto) 0.1 Absolute Nucleated RBC 0.00 Nucleated RBC % 0.0 Sodium 141 Potassium 3.9 Chloride 100 L Carbon Dioxide 29 Anion Gap 12.0 BUN 27 H Creatinine 1.3 H Estimated GFR (MDRD) 55 L Glucose 118 H Calcium 9.8 Total Bilirubin 0.7 AST 23 ALT 36 Alkaline Phosphatase 60 Total Protein 8.0 Albumin 3.7 Globulin 4.3 H Albumin/Globulin Ratio 0.9 L Lipase 43 Urine Color YELLOW Urine Clarity HAZY Urine pH 6.5 Ur Specific [place] 1.015 Urine Protein TRACE Urine Glucose (UA) NEGATIVE Urine Ketones NEGATIVE Urine Occult Blood NEGATIVE Urine Nitrite POSITIVE H Urine Bilirubin NEGATIVE Urine Urobilinogen 4 H Ur Leukocyte Esterase MODERATE H Urine RBC 0-5 Urine WBC 11-25 H Ur Squamous Epith Cells RARE Squamous Urine Bacteria Few Ur Microscopic Review INDICATED Urine Culture Comments INDICATED - Rads (name of study) CT Head Radiology: EMP read contemporaneously (chronic findings only) CT A/P Radiology: EMP read contemporaneously (Mild bladder wall thickening with lara, moderate fecal matter) PD MEDICAL DECISION MAKING - ED course Complexity details: reviewed old records (Discharge summary from [place] received and reviewed. 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 Pl aced on dual antiplatelet therapy. He was discharged to [facility] on the .) ED course: 64-year-old gentleman presents from jail with complaints of vomiting and constipation. He does have infected versus colonized urine and bladder wall thickening. But no fever. His urine is clear. Unclear if this represents UTI versus colonization. He did have intractable vomiting due to the constipation. No evidence of neurologic compromise on the CT. He was unable to take oral fluids after several rounds of antiemetics and as such will be placed in observation for intractable vomiting. Spoke with Dr. Weston for same at 9:45 PM. Departure - Departure Disposition: ED Place in Observation Clinical Impression: Indwelling Lara catheter present Constipation Qualifiers: Constipation type: slow transit constipation Qualified Code(s): K59.01 - Slow transit constipation Vomiting Qualifiers: Vomiting type: unspecified Vomiting Intractability: intractable Nausea presence: with nausea Qualified Code(s): R11.2 - Nausea with vomiting, unspecified Condition: Fair
[2019-03-05 19:41] LABS: BILIRUBIN,URINE NEGATIVE (NEGATIVE); GLUCOSE, URINE (UA) NEGATIVE (NEGATIVE); KETONES,URINE (UA) NEGATIVE (NEGATIVE); LEUKOCYTE ESTERASE, URINE MODERATE (NEGATIVE); NITRITE,URINE POSITIVE (NEGATIVE); OCCULT BLOOD,URINE NEGATIVE (NEGATIVE); PH,URINE 6.5 PH (5.0-7.5); PROTEIN,URINE TRACE mg/dL (NEGATIVE); UROBILINOGEN,URINE 4 E.U./dL (NORMAL)
[2019-03-05] MEDS ORDERED: IOVERSOL 320 100 ML VIAL IVP ONE ×2 (19:42→20:15)
[2019-03-05 19:49] LABS: CLARITY,URINE HAZY (CLEAR)
[2019-03-05] MEDS ORDERED: ONDANSETRON 4 MG/2 ML VIAL IVP STA (19:49)
[2019-03-05] MEDS ORDERED: BISACODYL 5 MG TABLET PO STA (20:06)
[2019-03-05] MEDS ORDERED: MAGNESIUM CITRATE 296 ML BOTTLE PO STA (20:06)
[2019-03-05 20:09] LABS: BACTERIA,URINE Few /HPF (None Seen); RBC,URINE 0-5 /HPF (0-5); SQUAMOUS EPITHELIAL CELL,UR RARE Squamous (<= Few)
[2019-03-05] MEDS ORDERED: MAG HYDROX/AL HYDROX/SIMETH 30 ML UDC PO STA (20:23)
[2019-03-05] MEDS ORDERED: METOCLOPRAMIDE 10 MG/2 ML VIAL IVP STA (20:31)
--- NOTE | 2019-03-05 20:35 | CT Report ---
Reason: vomiting, recent L RESEARCH DIETITIAN CVA Procedure Date: 03/05/2019 Accession Number: [id number] / [id number] Procedure: CT - HEAD WO CPT Code: FULL RESULT: EXAM: CT HEAD EXAM DATE: 03/05/2019 08:13 PM. CLINICAL HISTORY: Vomiting, recent L RESEARCH DIETITIAN CVA. COMPARISON: HEAD W/O STROKE PROTOCOL 09/18/2018 6:32 PM. TECHNIQUE: Multiaxial CT images were obtained from the foramen magnum to the vertex. Reformats: Sagittal and coronal. IV contrast: None. In accordance with CT protocol optimization, one or more of the following dose reduction techniques were utilized for this exam: automated exposure control, adjustment of mA and/or KV based on patient size, or use of iterative reconstructive technique. FINDINGS: Parenchyma: No intraparenchymal hemorrhage. No evidence of mass, midline shift, or CT findings of acute infarction. Old right cerebellar infarct with volume loss is unchanged. There is hypoattenuation in the left posterior cerebral artery distribution, consistent with history of recent infarct. Finnegan-white differentiation is otherwise distinct. Old lacunar infarct in the left basal ganglia is unchanged. Probable old lacunar infarcts in the bilateral thalami and right basal ganglia as well. Extensive white matter disease. Extraaxial Spaces: Normal for age. No subdural or epidural collections identified. Ventricles: Normal in size and position. Sinuses and Orbits: Imaged paranasal sinuses, orbits, and mastoids show no significant abnormality. Bones: No evidence of fracture or calvarial defect. Other: None. IMPRESSION: Left posterior cerebral artery territory infarct is likely late subacute to chronic. No acute hemorrhage. Extensive white matter disease. RADIA
--- NOTE | 2019-03-05 20:36 | CT Report ---
Reason: IV only, vomiting Procedure Date: 03/05/2019 Accession Number: [id number] / [id number] Procedure: CT - Abdomen/Pelvis W CPT Code: FULL RESULT: EXAM: CT ABDOMEN AND PELVIS EXAM DATE: 03/05/2019 08:13 PM. CLINICAL HISTORY: IV only, vomiting. COMPARISONS: ABDOMEN/PELVIS W/ 09/27/2018 2:08 PM. TECHNIQUE: Routine helical CT imaging was performed through the abdomen and pelvis. IV contrast: OPTI 320 100ML. Enteric contrast: No. Reconstructions: Coronal and sagittal. In accordance with CT protocol optimization, one or more of the following dose reduction techniques were utilized for this exam: automated exposure control, adjustment of mA and/or KV based on patient size, or use of iterative reconstructive technique. FINDINGS: Lung Bases: Unremarkable. Liver: Normal. No masses. Gallbladder/Bile Ducts: Unremarkable. Spleen: Normal. Pancreas: Normal. Adrenal Glands: Normal. Kidneys: A 1.5 cm superior pole left renal cyst. No masses or hydronephrosis. Peritoneal Cavity/Bowel: Normal. No free fluid, free air or adenopathy. No masses or acute inflammatory process. The appendix is well visualized and normal. Moderate fecal material in colonic loops Pelvic Organs: Contracted urinary bladder with Bryant bulb in situ. Suggestion of mild circumferential bladder wall thickening. PElvic organs are within normal limits. Vasculature: No aneurysms or other significant abnormality. Bones: No significant abnormality. Other: None. IMPRESSION: Contracted urinary bladder with Bryant bulb in situ. Suggestion of mild circumferential bladder wall thickening. To be correlated clinically for cystitis. Normal appendix. No hydronephrosis or nephrolithiasis. Moderate fecal material in colonic loops. RADIA
[2019-03-05] MEDS ORDERED: PROCHLORPERAZINE 10 MG/2 ML VIAL IVP STA (21:03)
[2019-03-05] MEDS ORDERED: ONDANSETRON 4 MG/2 ML VIAL IVP PRN (21:46)
[2019-03-05] MEDS ORDERED: PROMETHAZINE 25 MG/1 ML VIAL IM PRN (21:46)
--- NOTE | 2019-03-05 21:53 | HISTORY & PHYSICAL EXAMINATION ---
Chief Complaint - Chief Complaint Chief Complaint: intractable nausea and vomiting History of Present Illness - Admitted From Admitted From:: [facility] ED - History Obtained From Records Reviewed: yes History obtained from: ED physician and chart Exam Limitations: Dementia. unreliable hitorian - History of Present Illness HPI Comment/Other: Patient is a 64 y/o male who presented to the ED from [facility] for nausea and v omiting. It is reported that his symptoms persisted in the ED despite receiving IV antiemetics. As a result he was presented for admission. At bedside he appears to be resting comfortably. He knows he is in the hospital but cannot tell me why. He has history of multiple strokes and multi-infarct dementia. Consequently he is a poor historian. He also has history of methamphetamine abuse and insulin-dependent diabetes. He denies chest pain, ROHINI, abd pain, nausea, vomiting, fever or chills. He has a chronic indwelling lara catheter. His creatinine was 1.3 today. This is not far from his baseline. History - Past Medical History Cardiovascular: reports: Hypertension, High cholesterol Respiratory: reports: Pneumonia Neuro: reports: Cerebral palsy, CVA, Other Endocrine/Autoimmune: reports: Type 2 diabetes GI: reports: None : reports: Benign prostate hypertrophy, Retention, Chronic bladder infection, Renal insuffiency, Indwelling catheter Psych: reports: Depression, Anxiety Musculoskeletal: reports: Fatigue, Chronic back pain Derm: reports: None MRSA Hx?: No - Family & Social History Family History: Mother: , Father: , Sister: Alive and Well (has son and daughter in [place]; but estranged), Brother: , Other family: Alive and Well Social History Notes: He currently resides at [facility]. He has history of methamp hetamine abuse. About twice a week for 10 years accordig to old records. He is a nonsmoker and uses no alcohol. - POLST Patient has POLST: Yes POLST Status: Full Code Meds/Allgy - Home Medications Home Medications: Ambulatory Orders Medication Instructions Recorded Confirmed Doxazosin [Cardura] 1 mg PO QPM #30 tablet 08/27/18 03/06/19 Lisinopril [Zestril] 20 mg PO DAILY #30 tablet 08/27/18 03/06/19 Tamsulosin [Flomax] 0.4 mg PO DAILY #30 capsule 08/27/18 03/07/19 Insulin Glargine,Hum.rec.anlog 24 unit SUBQ DAILY 03/06/19 03/07/19 [Basaglar Kwikpen U-100] Acetaminophen 650 mg PO Q4HR PRN 03/07/19 03/07/19 Amox/Clav 875/125 [Augmentin 1 tab PO BID #14 tablet 03/07/19 875/125] Aspirin 325 mg PO DAILY 03/07/19 03/07/19 Atorvastatin Calcium 80 mg PO DAILY 03/07/19 03/07/19 Clopidogrel [Plavix] 75 mg PO DAILY 03/07/19 03/07/19 Ibuprofen 400 mg PO DAILY PRN 03/07/19 03/07/19 Insulin Lispro 0 unit SQ DAILY 03/07/19 03/07/19 Insulin Lispro 7 units SQ TID 03/07/19 03/07/19 Nicotine 14 mg Patch [Nicoderm] 1 patch TD DAILY PRN 03/07/19 03/07/19 Ondansetron HCl [Zofran] 4 mg PO Q6H PRN 03/07/19 03/07/19 Saccharomyces Boulardii [Florastor] 250 mg PO BID #14 capsule 03/07/19 Thiamine [Vitamin B-1] 100 mg PO DAILY 03/07/19 03/07/19 amLODIPine [Norvasc] 10 mg PO DAILY 03/07/19 03/07/19 - Allergies Allergies/Adverse Reactions: Allergies Allergy/AdvReac Type Severity Reaction Status Date / Time No Known Drug Allergies Allergy Verified 03/05/19 18:20 Review of Systems - Constitutional Constitutional: denies: Fever, Chills, Diaphoresis - Eyes Eyes: denies: Blurred vision, Vision loss, Dipolpia - Ears, Nose & Throat Ears, Nose & Throat: denies: Nasal pain, Nasal discharge, Sore throat - Cardiovascular Cariovascular: denies: Irregular heart rate, Chest pain, Edema - Respiratory Respiratory: denies: Cough, Sputum production, Wheezing, SOB at rest - Gastrointestinal Gastrointestinal: reports: Constipation, Nausea, Vomiting. denies: Abdominal pain - Genitourinary Genitourinary: reports: Other (Patient has a chronic indwelling lara) - Musculoskeletal Musculoskeletal: denies: Muscle pain, Back pain - Integumentary Integumentary: denies: Rash, Pruritis, Lesions - Neurological Neurological: reports: Memory problems, Other (Unsteady gait). denies: General weakness - Psychiatric Psychiatric: denies: Depression, Anxiety - Endocrine Endocrine: denies: Polyuria, Polydypsia Prior Level of Functionality: Patient presents from [facility]. He has multi-infarct dementia and is unstable on his feet. Exam - Vital Signs Vital Signs: Vital Signs x48h Temp Pulse Resp BP Pulse Ox 03/05/19 21:34 37.1 C 83 18 139/93 H 95 03/05/19 19:48 80 18 139/89 H 97 03/05/19 18:15 36.9 C 81 20 151/93 H 99 - Physical Exam General Appearance: positive: No acute distress, Alert. negative: Anxious, Lethargic Eyes Bilateral: positive: Normal inspection, PERRL, EOMI ENT: positive: ENT inspection nml Neck: positive: Nml inspection, No JVD, Trachea midline Respiratory: positive: Chest non-tender, No respiratory distress, Breath sounds nml. negative: Wheezes, Rales, Rhonchi Cardiovascular: positive: Regular rate & rhythm Abdomen: positive: Non-tender, No organomegaly, Nml bowel sounds, No distention. negative: Guarding, Rebound Back: positive: Nml inspection Skin: positive: Color nml, No rash, Warm Extremities: positive: Non-tender, Full ROM, No pedal edema Neurologic/Psychiatric: positive: Mood/affect nml. negative: Oriented x3 (Oriented to person and place. Not to time and reason) Conclusion/Plan - Problem List (1) Intractable nausea and vomiting Conclusion/Plan: NPO. IV hydration Zofran IV prn. Advance diet as tolerated. If tolerating well, patient may be discharged later today (2) Constipation Conclusion/Plan: Will order suppositories while patient still nauseous and an oral regimen when improved Qualifiers: Constipation type: slow transit constipation Qualified Code(s): K59.01 - Slow transit constipation (3) Leukocytosis Conclusion/Plan: Likely reactive. Patient has a chronic indwelling lara Suspicion for a UTI is low. However if WBC continues to be elevated or patient becomes febrile, Will work up further (4) Multi-infarct dementia Conclusion/Plan: On Namenda (5) Hypertension Conclusion/Plan: On lisinopril and amlodipine (6) Hyperlipidemia Conclusion/Plan: On pravastatin (7) Diabetes mellitus Conclusion/Plan: Will order accu check and SSI while NPO - Lab Results Fish Bones: 03/07/19 04:35 03/07/19 04:35 Core Measures - Anticipated LOS I expect patient to be DC'd or transferred within 96 hours.: Yes - DVT/VTE - Prophylaxis VTE/DVT Device ordered at admit?: Yes
[2019-03-05] MEDS: SODIUM CHLORIDE 0.9% 1,000 ML IV SCH (23:47)
[2019-03-06] MEDS: SODIUM CHLORIDE FLUSH 0.9% 10 ML SYRINGE IVP SCH ×3 (00:59→17:16)
[2019-03-06] MEDS ORDERED: BISACODYL 10 MG SUPP PR PRN (01:14)
[2019-03-06 05:57] LABS: BASOPHILS # (AUTO) 0.1 10^3/uL (0.0-0.1); BASOPHILS % (AUTO) 0.5 %; HGB - HEMOGLOBIN 13.1 g/dL (14.0-18.0); LYMPHOCYTES # (AUTO) 2.3 10^3/uL (1.5-3.5); LYMPHOCYTES % (AUTO) 21.4 %; MEAN CORPUSCULAR HEMOGLOBIN 28.6 pg (27.0-31.0); MEAN CORPUSCULAR HGB CONC 32.1 g/dL (32.0-36.0); MEAN CORPUSCULAR VOLUME 89.1 fL (80.0-94.0); MEAN PLATELET VOLUME 11.2 fL (7.4-11.4); MONOCYTES # (AUTO) 0.8 10^3/uL (0.0-1.0); MONOCYTES % (AUTO) 6.9 %; NEUTROPHILS # (AUTO) 7.7 10^3/uL (1.5-6.6); NEUTROPHILS % (AUTO) 70.7 %; PLT - PLATELET COUNT 305 10^3/uL (130-450); RED BLOOD COUNT 4.58 10^6/uL (4.70-6.10); WHITE BLOOD COUNT 10.9 x10^3/uL (4.8-10.8)
[2019-03-06] MEDS: SODIUM CHLORIDE FLUSH 0.9% 10 ML SYRINGE IVP PRN (06:03)
[2019-03-06] MEDS: PANTOPRAZOLE 40 MG VIAL IVP SCH (06:03)
[2019-03-06 06:06] LABS: CALCIUM 9.8 mg/dL (8.5-10.3); CREATININE 1.2 mg/dL (0.6-1.2)
[2019-03-06] MEDS ORDERED: cefTRIAXone 2 GM in SODIUM CHLORIDE 0.9% MINIBAG 100 ML IV SCH (09:00)
[2019-03-06] MEDS: SODIUM CHLORIDE 0.9% 1,000 ML IV SCH ×2 (11:42→17:16)
[2019-03-06] MEDS: POLYETHYLENE GLYCOL 3350 17 GM PACKET PO SCH (11:49)
[2019-03-06] MEDS: AMOX/CLAV 875 MG/125 MG TABLET PO SCH ×2 (11:49→20:49)
--- NOTE | 2019-03-06 12:47 | Discharge Plan ---
Discharge Plan for SNF / [facility] - Discharge Plan And Transition Orders Problem Reviewed?: Yes Disposition: 03 SNF DC/Xfer Condition: Stable Allergies and Adverse Reactions: Allergies Allergy/AdvReac Type Severity Reaction Status Date / Time No Known Drug Allergies Allergy Verified 03/05/19 18:20 Health Concerns: intractable nausea and vomiting, - SNF / NURSING HOME Transition Orders Medicare Certification Statement: I certify that [facility] care is medically necessary on a continuing basis for any of the conditions for which she/he is receiving care during hospitalization. Notify PCP of admission and forward orders to primary provider for signature. Other Notification Orders: Call PCP immediately if patient develops dyspnea, chest pain/tightness or edema. Additional Bowel Program Orders: If no BM after 2 days, nurse may give M.O.M. 30ml PO PRN and/or ducolax Supp 1 MD and/or ARAMIS 250mg P.O., and/or senna 1-2 tabs PO. On day 3 nurse may give repeat above order until residents constipation is resolved. Medication Orders: PLEASE REFER TO THE DISCHARGE MEDICATION LIST.
[2019-03-06] MEDS ORDERED: MAGNESIUM CITRATE 296 ML BOTTLE PO SCH (13:06)
[2019-03-06] MEDS ORDERED: MINERAL OIL ENEMA 133 ML BOTTLE RC SCH (14:00)
--- NOTE | 2019-03-06 16:29 | PROVIDER PROGRESS NOTE ---
Assessment/Plan - Problem List (1) Constipation Qualifiers: Constipation type: slow transit constipation Qualified Code(s): K59.01 - Slow transit constipation Assessment/Plan: pt report he had no bowel movement for over one week. he feel full. but he denies abdominal pain, No N/V. pt had a good bowel sound Mag citrate and enema did not work order KUB to see if fecal impaction, will followup (2) Intractable nausea and vomiting resolved (3) Leukocytosis Conclusion/Plan: pt has hx of UTI, UA indicated for UTI, according to his previous study, add Augmentin for pt followup UA culture (4) Multi-infarct dementia Conclusion/Plan: stable, On Namenda (5) Hypertension Conclusion/Plan: stable, On lisinopril and amlodipine (6) Hyperlipidemia Conclusion/Plan: stable, On pravastatin (7) Diabetes mellitus Conclusion/Plan: 03/06 slide scale, [facility] check glucose level, and hypoglycemia protocol - Current Meds Current Meds: Current Medications Generic Name Dose Route Start Last Admin Trade Name Marylou PRN Reason Stop Dose Admin Amoxicillin/Clavulanate Potassium 1 tab 03/06/19 11:00 03/06/19 11:49 Augmentin 875/125 PO 1 tab BID [facility]ONT[facility] Administration Sodium Chloride 1,000 mls @ 100 mls/hr 03/05/19 22:00 03/06/19 11:42 Normal Saline 0.9% IV Not Given .Q10H MONTY Pantoprazole Sodium 40 mg 03/06/19 07:00 03/06/19 06:03 Protonix IVP 40 mg QDAC MONTY Administration Polyethylene Glycol 17 gm 03/06/19 09:00 03/06/19 11:49 Miralax PO 17 gm DAILY MONTY Administration Sodium Chloride 10 ml 03/05/19 21:46 03/06/19 06:03 Normal Saline Flush 0.9% IVP 10 ml PRN PRN Administration NEEDED PER PROVIDER ORDERS Sodium Chloride 10 ml 03/06/19 01:00 03/06/19 08:09 Normal Saline Flush 0.9% IVP Not Given 0100,0900,1700 MONTY - Lab Result Fish Bone Diagrams: 03/06/19 05:10 03/06/19 05:10 - Additional Planning My Orders: My Active Orders 03/06/19 11:00 Amox/Clav 875/125 [Augmentin 875/125] 1 tab PO BID 03/06/19 16:22 Abdomen 2 View X-Ray [XR] Stat 03/06/19 17:00 Saccharomyces Jackyi [Florastor] 250 mg PO BIDWM 03/06/19 Lunch Regular Diet [DIET] Subjective - Subjective Patient Reports: Feeling Better Objective Vital Signs: Vital Signs - 24 hr 03/05/19 03/05/19 03/05/19 18:15 19:48 21:34 Temperature 36.9 C 37.1 C Heart Rate 81 80 83 Heart Rate [ Brachial] Respiratory 20 18 18 Rate Blood Pressure 151/93 H 139/89 H 139/93 H Blood Pressure [Left Brachial artery] Blood Pressure [Right Brachial artery] O2 Saturation 99 97 95 03/05/19 03/06/19 03/06/19 22:53 00:00 01:02 Temperature 37.0 C 37 C Heart Rate 80 83 Heart Rate [ 83 Brachial] Respiratory 18 20 20 Rate Blood Pressure 132/86 H Blood Pressure [Left Brachial artery] Blood Pressure 144/81 H [Right Brachial artery] O2 Saturation 96 98 98 03/06/19 10:57 Temperature 36.8 C Heart Rate Heart Rate [ 70 Brachial] Respiratory 18 Rate Blood Pressure Blood Pressure 112/75 [Left Brachial artery] Blood Pressure [Right Brachial artery] O2 Saturation 98 Oxygen O2 Source [With Activity] Nasal cannula O2 Source Room air I&O (Last 24 Hrs): Intake and Output Totals x24h 03/04/19 03/05/19 03/06/19 23:59 23:59 23:59 Intake Total 713.333 Output Total 600 800 Balance -600 -86.667 General: Alert, No acute distress HEENT: PERRLA Neck: Supple Lymphatic: no adenopathy Neuro: Alert, Non Focal Cardiovascular: Regular rate Respiratory: Chest non-tender Abdomen: Normal bowel sounds, Soft, No tenderness, No masses - Results Results: Laboratory Results WBC 10.9 x10^3/uL (4.8-10.8) H 03/06/19 05:10 RBC 4.58 10^6/uL (4.70-6.10) L 03/06/19 05:10 Hgb 13.1 g/dL (14.0-18.0) L 03/06/19 05:10 Hct 40.8 % (42.0-52.0) L 03/06/19 05:10 MCV 89.1 fL (80.0-94.0) 03/06/19 05:10 MCH 28.6 pg (27.0-31.0) 03/06/19 05:10 MCHC 32.1 g/dL (32.0-36.0) 03/06/19 05:10 RDW 13.0 % (12.0-15.0) 03/06/19 05:10 Plt Count 305 10^3/uL (130-450) 03/06/19 05:10 MPV 11.2 fL (7.4-11.4) 03/06/19 05:10 Neut # (Auto) 7.7 10^3/uL (1.5-6.6) H 03/06/19 05:10 Lymph # (Auto) 2.3 10^3/uL (1.5-3.5) 03/06/19 05:10 [place] # (Auto) 0.8 10^3/uL (0.0-1.0) 03/06/19 05:10 Eos # (Auto) 0.0 10^3/uL (0.0-0.7) 03/06/19 05:10 Baso # (Auto) 0.1 10^3/uL (0.0-0.1) 03/06/19 05:10 Absolute Nucleated RBC 0.00 x10^3/uL 03/06/19 05:10 Nucleated RBC % 0.0 /100WBC 03/06/19 05:10 Sodium 144 mmol/L (135-145) 03/06/19 05:10 Potassium 4.3 mmol/L (3.5-5.0) 03/06/19 05:10 Chloride 106 mmol/L (101-111) 03/06/19 05:10 Carbon Dioxide 29 mmol/L (21-32) 03/06/19 05:10 Anion Gap 9.0 (6-13) 03/06/19 05:10 BUN 28 mg/dL (6-20) H 03/06/19 05:10 Creatinine 1.2 mg/dL (0.6-1.2) 03/06/19 05:10 Estimated GFR (MDRD) 61 (>89) L 03/06/19 05:10 Glucose 158 mg/dL (70-100) H 03/06/19 05:10 Calcium 9.8 mg/dL (8.5-10.3) 03/06/19 05:10 Total Bilirubin 0.7 mg/dL (0.2-1.0) 03/05/19 18:31 AST 23 IU/L (10-42) 03/05/19 18:31 ALT 36 IU/L (10-60) 03/05/19 18:31 Alkaline Phosphatase 60 IU/L (42-121) 03/05/19 18:31 Total Protein 8.0 g/dL (6.7-8.2) 03/05/19 18:31 Albumin 3.7 g/dL (3.2-5.5) 03/05/19 18:31 Globulin 4.3 g/dL (2.1-4.2) H 03/05/19 18:31 Albumin/Globulin Ratio 0.9 (1.0-2.2) L 03/05/19 18:31 Lipase 43 U/L (22-51) 03/05/19 18:31 Urine Color YELLOW 03/05/19 19:35 Urine Clarity HAZY (CLEAR) 03/05/19 19:35 Urine pH 6.5 PH (5.0-7.5) 03/05/19 19:35 Ur Specific [place] 1.015 (1.002-1.030) 03/05/19 19:35 Urine Protein TRACE mg/dL (NEGATIVE) 03/05/19 19:35 Urine Glucose (UA) NEGATIVE mg/dL (NEGATIVE) 03/05/19 19:35 Urine Ketones NEGATIVE mg/dL (NEGATIVE) 03/05/19 19:35 Urine Occult Blood NEGATIVE (NEGATIVE) 03/05/19 19:35 Urine Nitrite POSITIVE (NEGATIVE) H 03/05/19 19:35 Urine Bilirubin NEGATIVE (NEGATIVE) 03/05/19 19:35 Urine Urobilinogen 4 E.U./dL (NORMAL) H 03/05/19 19:35 Ur Leukocyte Esterase MODERATE (NEGATIVE) H 03/05/19 19:35 Urine RBC 0-5 /HPF (0-5) 03/05/19 19:35 Urine WBC 11-25 /HPF (0-3) H 03/05/19 19:35 Ur Squamous Epith Cells RARE Squamous (<= Few) 03/05/19 19:35 Urine Bacteria Few /HPF (None Seen) 03/05/19 19:35 Ur Microscopic Review INDICATED 03/05/19 19:35 Urine Culture Comments INDICATED 03/05/19 19:35 Sepsis Event Note (H) - Evaluation Current Stage of Sepsis: Ruled out Current Medications - Current Medications Current Medications: Active Medications Amoxicillin/Clavulanate Potassium (Augmentin 875/125) 1 tab PO BID [facility] Last Admin: 03/06/19 11:49 Dose: 1 tab Bisacodyl (Dulcolax Supp) 10 mg [place] DAILY PRN PRN Reason: Constipation Sodium Chloride (Normal Saline 0.9%) 1,000 mls @ 100 mls/hr IV .Q10H [facility] Last Admin: 03/06/19 11:42 Dose: Not Given Insulin Aspart (Novolog) 1 - 9 unit SUBQ 0800,1200,1700,2100 [facility]; Protocol Insulin Glargine (Lantus Solostar) 10 unit SUBQ BID [facility] Ondansetron HCl (Zofran Inj) 4 mg IVP Q6HR PRN PRN Reason: Nausea / Vomiting Pantoprazole Sodium (Protonix) 40 mg IVP QDAC [facility] Last Admin: 03/06/19 06:03 Dose: 40 mg Polyethylene Glycol (Miralax) 17 gm PO DAILY [facility] Last Admin: 03/06/19 11:49 Dose: 17 gm Promethazine HCl (Phenergan Inj) 25 mg IM Q6HR PRN PRN Reason: Nausea / Vomiting Saccharomyces Boulardii (Florastor) 250 mg PO BIDWM [facility] Sodium Chloride (Normal Saline Flush 0.9%) 10 ml IVP PRN PRN PRN Reason: NEEDED PER PROVIDER ORDERS Last Admin: 03/06/19 06:03 Dose: 10 ml Sodium Chloride (Normal Saline Flush 0.9%) 10 ml IVP 0100,0900,1700 [facility] Last Admin: 03/06/19 08:09 Dose: Not Given Aspirin [Aspir 81] 81 mg PO DAILY 11/17/12 Insulin Glargine,Hum.rec.anlog [Basaglar Kwikpen U-100] 20 unit SUBQ BID 03/06/19
[2019-03-06 17:09] LABS: HB2 TOTAL 14.3 g/dL; HEMOGLOBIN A1C 1.02 g/dL; HEMOGLOBIN A1C % 8.7 % (4.6-6.2)
--- NOTE | 2019-03-06 17:14 | XRAY Report ---
Reason: acute on chronic constipation Procedure Date: 03/06/2019 Accession Number: [id number] / [id number] Procedure: XR - Abdomen 2 View X-Ray CPT Code: 41467 FULL RESULT: EXAM: ABDOMEN RADIOGRAPHY EXAM DATE: 03/06/2019 05:08 PM. CLINICAL HISTORY: Acute on chronic constipation. COMPARISON: 03/05/2019. TECHNIQUE: 2 views. FINDINGS: Lung Bases: Limited visualization. Bowel Gas Pattern: No dilated small bowel is seen. There is moderate to large volume stool within colon. Other: None. IMPRESSION: There is moderate to large volume stool within colon. RADIA
[2019-03-06] MEDS: INSULIN ASPART 300 UNIT/3 ML PEN SUBQ SCH ×2 (17:15→20:50)
[2019-03-06] MEDS: SACCHAROMYCES BOULARDII 250 MG CAPSULE PO SCH (17:16)
[2019-03-06] MEDS ORDERED: SALINE ENEMA 133 ML BOTTLE RC SCH (18:43)
[2019-03-06] MEDS: INSULIN GLARGINE 300 UNIT/3 ML PEN SUBQ SCH (20:50)
[2019-03-06] MEDS ORDERED: chlorproMAZINE 25 MG in SODIUM CHLORIDE 0.9% 500 ML IV ONE ×2 (22:06→22:57)
[2019-03-06] MEDS ORDERED: chlorproMAZINE 25 MG TABLET PO PRN (22:18)
[2019-03-07] MEDS: SODIUM CHLORIDE FLUSH 0.9% 10 ML SYRINGE IVP SCH ×2 (00:38→09:12)
[2019-03-07 03:26] LABS: MUDS CUTOFF CONCENTRATIONS CUTOFF CONC BELOW:
[2019-03-07 03:54] LABS: AMPHETAMINE SCREEN,URINE NEGATIVE (NEGATIVE); BENZODIAZEPINES SCREEN, URINE NEGATIVE (NEGATIVE); COCAINE SCREEN URINE NEGATIVE (NEGATIVE); METHADONE SCREEN, URINE NEGATIVE (NEGATIVE); METHAMPHETAMINES SCREEN, URINE NEGATIVE (NEGATIVE); OPIATE SCREEN, URINE NEGATIVE (NEGATIVE); OXYCODONE SCREEN, URINE NEGATIVE (NEGATIVE); PROPOXYPHENE SCREEN, URINE NEGATIVE (NEGATIVE); TRICYCLIC ANTIDEPRESSANT,URINE NEGATIVE (NEGATIVE)
[2019-03-07 05:09] LABS: BASOPHILS # (AUTO) 0.1 10^3/uL (0.0-0.1); BASOPHILS % (AUTO) 0.8 %; EOSINOPHILS # (AUTO) 0.2 10^3/uL (0.0-0.7); EOSINOPHILS % (AUTO) 2.4 %; HGB - HEMOGLOBIN 12.2 g/dL (14.0-18.0); LYMPHOCYTES % (AUTO) 26.3 %; MEAN CORPUSCULAR HEMOGLOBIN 29.5 pg (27.0-31.0); MEAN CORPUSCULAR HGB CONC 32.9 g/dL (32.0-36.0); MEAN CORPUSCULAR VOLUME 89.8 fL (80.0-94.0); MEAN PLATELET VOLUME 11.2 fL (7.4-11.4); MONOCYTES # (AUTO) 0.6 10^3/uL (0.0-1.0); MONOCYTES % (AUTO) 8.3 %; NEUTROPHILS # (AUTO) 4.6 10^3/uL (1.5-6.6); NEUTROPHILS % (AUTO) 61.9 %; PLT - PLATELET COUNT 300 10^3/uL (130-450); RED BLOOD COUNT 4.13 10^6/uL (4.70-6.10); RED CELL DISTRIBUTION WIDTH 12.7 % (12.0-15.0); WHITE BLOOD COUNT 7.5 x10^3/uL (4.8-10.8)
[2019-03-07 05:14] LABS: CALCIUM 9.5 mg/dL (8.5-10.3); CREATININE 1.2 mg/dL (0.6-1.2)
[2019-03-07] MEDS: PANTOPRAZOLE 40 MG VIAL IVP SCH (06:05)
[2019-03-07] MEDS: SODIUM CHLORIDE FLUSH 0.9% 10 ML SYRINGE IVP PRN ×2 (06:06→06:10)
[2019-03-07] MEDS: INSULIN ASPART 300 UNIT/3 ML PEN SUBQ SCH ×2 (08:01→11:23)
[2019-03-07] MEDS: SACCHAROMYCES BOULARDII 250 MG CAPSULE PO SCH (09:11)
[2019-03-07] MEDS: POLYETHYLENE GLYCOL 3350 17 GM PACKET PO SCH (09:12)
[2019-03-07] MEDS: INSULIN GLARGINE 300 UNIT/3 ML PEN SUBQ SCH (09:12)
[2019-03-07] MEDS: AMOX/CLAV 875 MG/125 MG TABLET PO SCH (09:12)
--- NOTE | 2019-03-07 11:53 | Discharge Plan ---
"Discharge Plan for SNF / [facility] - Discharge Plan And Transition Orders Problem Reviewed?: Yes Disposition: 03 SNF DC/Xfer Condition: Stable Allergies and Adverse Reactions: Allergies Allergy/AdvReac Type Severity Reaction Status Date / Time No Known Drug Allergies Allergy Verified 03/05/19 18:20 Health Concerns: intractable nausea and vomiting, UTI Plan of Treatment: intractable nausea and vomiting is resolved. it can be caused by virus gastritis. Please continue keep hydration for pt pt was found to have UTI, pt is prescribed Augmentin for 7 days. Care Goals: stabilization and improvement of pt's medical conditions Assessment: assessment as the above - SNF / RETIREMENT Transition Orders Admit to (Facility): [facility] Under the care of (Name): Mickey Ward Discharge Diagnosis: intractable nausea and vomiting, constipation, UTI, multiple infarct dementia, HTN, HLD, DM2 Medicare Certification Statement: I do not certify that [facility] is medically necessary on a continuing basis for any of the conditions for which she/he is receiving care during hospitalization. Notify PCP of admission and forward orders to primary provider for signature. Weight on admission and: Daily Call PCP immediately if weight increases by: 2 kg Other Notification Orders: Call PCP immediately if patient develops dyspnea, chest pain/tightness or edema. House Bowel Program: Yes Additional Bowel Program Orders: If no BM after 2 days, nurse may give M.O.M. 30ml PO PRN and/or ducolax Supp 1 [place] and/or ARAMIS 250mg P.O., and/or senna 1-2 tabs PO. On day 3 nurse may give repeat above order until residents constipation is resolved. Annual Influenza Vaccine (between Jan 20 and August 19): Yes Two-step PPD per [facility] [phone] or approved exception documents: Yes Treatments & Other Orders: pt may followup Dr. Berry when pt is arrival to [facility]. pt is prescribed antibiotics to finish his UTI treatment course Medication Orders: PLEASE REFER TO THE DISCHARGE MEDICATION LIST. Insulin Orders?: Yes - Medications New Prescriptions: Amox/Clav 875/125 [Augmentin 875/125] 1 tab PO BID #14 tablet Saccharomyces Boulardii [Florastor] 250 mg PO BID #14 capsule - Diet Type: Geriatric Texture: Regular Liquids: Thin May have monthly special meal: Yes - Therapies | Activity Rehabilitation Potential: Maximize functional status Activity: Activity as Tolerated Additional Instructions: pt may followup Dr. Berry when pt is arrival to [facility]. pt is prescribed antibiotics to finish his UTI treatment course Insulin Orders - SNF Basal | Correction | Custom Orders: Diagnosis: Diabetes Initiate hypo and hyperglycemia protocols for BG <70 and BG >375. May check BG PRN for signs/symptoms of dysglycemia. Frequency of BG checks: [AC/Meal/HS] Basal Insulin: [] Lantus 100 units / ml inject subq as follows: [] [] Other: [] Correction Insulin: - Select the type of insulin below [Choose: Novolog/Humalog]100 units /ml insulin inject subq per orders indicate below [] LOW DOSE [] MODERATE DOSE [] MODERATE/HIGH DOSE [] HIGH DOSE GB UNITS GB UNITS GB UNITS GB UNITS 61-140 0 UNITS 61-140 0 UNITS 61-140 0 UNITS 61-140 0 UNITS 141-175 1 UNITS 141-175 1 UNITS 141-175 2 UNITS 141-175 3 UNITS 176-225 2 UNITS 176-225 3 UNITS 176-225 4 UNITS 176-225 5 UNITS 226-275 3 UNITS 226-275 5 UNITS 226-275 6 UNITS 226-275 7 UNITS 276-325 4 UNITS 276-325 7 UNITS 276-325 8 UNITS 276-325 9 UNITS 326-375 5 UNITS 326-375 9 UNITS 326-375 10 UNITS 326-375 11 UNITS >375 CONTACT MD >375 CONTACT MD >375 CONTACT MD >375 CONTACT MD Custom Dosing: [Choose: Novolog/Humalog] 100 units/ml Insulin inject subq as follows: GB Units 61-140 [] Units 141-175 [] Units 176-225 [] Units 226-275 [] Units 276-325 []Units 326-375 [] Units >375 Contact MD"
--- NOTE | 2019-03-07 12:45 | DISCHARGE SUMMARY ---
Discharge Summary Admit Date: 03/05/19 Discharge Date: 03/07/19 Discharging Provider: COYLE Primary Care Provider: Calderon Anderson Condition at Discharge: Stable Discharge Disposition: 03 SNF DC/Xfer Discharge Facility [facility]: [facility] - DIAGNOSES Admission Diagnoses: (1) Intractable nausea and vomiting (2) Constipation (3) Leukocytosis (4) Multi-infarct dementia (5) Hypertension (6) Hyperlipidemia (7) Diabetes mellitus Discharge Diagnoses with Status of Each Condition: (1) Constipation resolved, pt had bowel movement in hospital (2) Intractable nausea and vomiting resolved. pt tolerate regular diet (3) Leukocytosis resolved. pt was prescribed antibiotics Augmentin for his UTI (4) Multi-infarct dementia stable (5) Hypertension stable (6) Hyperlipidemia stable (7) Diabetes mellitus stable - HPI History of Present Illness: refer from Dr. Weston's HPI on 03/05/19 Patient is a 64 y/o male who presented to the ED from [facility] for nausea and vom iting. It is reported that his symptoms persisted in the ED despite receiving IV antiemetics. As a result he was presented for admission. At bedside he appears to be resting comfortably. He knows he is in the hospital but cannot tell me why. He has history of multiple strokes and multi-infarct dementia. Consequently he is a poor historian. He also has history of methamphetamine abuse and insulin-dependent diabetes. He denies chest pain, ROHINI, abd pain, nausea, vomiting, fever or chills. He has a chronic indwelling lara catheter. His creatinine was 1.3 today. This is not far from his baseline. - HOSPITAL COURSE Hospital Course: pt was admitted for intractable nausea and vomiting. After hydration, anti- emesis treatment PRN, pt has no more N/V, pt tolerate regular diet. pt developed acute on chronic constipation for over one week. after treatment and Xray, pt had bowel movement. pt was found elevated WBC, possible UTI. pt was prescribed antibiotics. The detail hospital course is as the follow 1) Constipation resolved, pt had bowel movement in hospital (2) Intractable nausea and vomiting resolved. pt tolerate regular diet (3) Leukocytosis resolved. pt was prescribed antibiotics Augmentin for his UTI (4) Multi-infarct dementia stable (5) Hypertension stable (6) Hyperlipidemia stable (7) Diabetes mellitus stable - ALLERGIES Allergies/Adverse Reactions: Allergies Allergy/AdvReac Type Severity Reaction Status Date / Time No Known Drug Allergies Allergy Verified 03/05/19 18:20 - MEDICATIONS Home Medications: Ambulatory Orders Medication Instructions Recorded Confirmed Doxazosin [Cardura] 1 mg PO QPM #30 tablet 08/27/18 03/06/19 Lisinopril [Zestril] 20 mg PO DAILY #30 tablet 08/27/18 03/06/19 Tamsulosin [Flomax] 0.4 mg PO DAILY #30 capsule 08/27/18 03/07/19 Insulin Glargine,Hum.rec.anlog 24 unit SUBQ DAILY 03/06/19 03/07/19 [Basaglar Kwikpen U-100] Acetaminophen 650 mg PO Q4HR PRN 03/07/19 03/07/19 Amox/Clav 875/125 [Augmentin 1 tab PO BID #14 tablet 03/07/19 875/125] Aspirin 325 mg PO DAILY 03/07/19 03/07/19 Atorvastatin Calcium 80 mg PO DAILY 03/07/19 03/07/19 Clopidogrel [Plavix] 75 mg PO DAILY 03/07/19 03/07/19 Ibuprofen 400 mg PO DAILY PRN 03/07/19 03/07/19 Insulin Lispro 0 unit SQ DAILY 03/07/19 03/07/19 Insulin Lispro 7 units SQ TID 03/07/19 03/07/19 Nicotine 14 mg Patch [Nicoderm] 1 patch TD DAILY PRN 03/07/19 03/07/19 Ondansetron HCl [Zofran] 4 mg PO Q6H PRN 03/07/19 03/07/19 Saccharomyces Boulardii [Florastor] 250 mg PO BID #14 capsule 03/07/19 Thiamine [Vitamin B-1] 100 mg PO DAILY 03/07/19 03/07/19 amLODIPine [Norvasc] 10 mg PO DAILY 03/07/19 03/07/19 - PHYSICAL EXAM AT DISCHARGE General Appearance: positive: No acute distress, Alert. negative: Lethargic Eyes Bilateral: positive: Normal inspection, PERRL, No lid inflammation, Conjunctivae nml ENT: positive: ENT inspection nml, Pharynx nml. negative: Purulent nasal drainage, Pharyngeal erythema Neck: positive: Nml inspection, Thyroid nml, No JVD, Trachea midline. negative: Thyromegaly, Lymphadenopathy (R), Lymphadenopathy (L), Stiff neck, Tracheal deviation Respiratory: positive: Chest non-tender, No respiratory distress, Breath sounds nml. negative: Wheezes, Rales, Rhonchi Cardiovascular: positive: Regular rate & rhythm, No murmur, No gallop. negative: Irregularly irregular, Extrasystoles, Tachycardia, Bradycardia, JVD present, Systolic murmur, Diastolic murmur Abdomen: positive: Non-tender, No organomegaly, Nml bowel sounds, No distention. negative: Tenderness, Guarding, Rebound Back: positive: Nml inspection. negative: CVA tenderness (R), CVA tenderness (L) Skin: positive: Color nml, No rash, Warm, Dry. negative: Cyanosis, Diaphoresis, Pallor Extremities: positive: Non-tender. negative: Calf tenderness, Vera's sign/cords Neurologic/Psychiatric: positive: Sensation nml. negative: Weakness, Sensory loss, Facial droop, Slurred/abnml speech, Depressed mood/affect - LABS Result Diagrams: 03/07/19 04:35 03/07/19 04:35 - SEPSIS Current Stage of Sepsis: Ruled out - FOLLOW UP Follow Up: pt may followup Dr. Berry when pt is arrival to [facility]. pt is prescribed antibiotics to finish his UTI treatment course - TIME SPENT Time Spent in Discharge (Minutes): 50
[2019-03-07] MEDS ORDERED: CLOPIDOGREL 75 MG TABLET PO SCH (13:13)
[2019-03-07] MEDS ORDERED: ASPIRIN 325 MG TABLET PO SCH (13:14)
[2019-03-07] MEDS ORDERED: THIAMINE 100 MG TABLET PO SCH (13:15)
[2019-03-07] MEDS ORDERED: TAMSULOSIN 0.4 MG CAPSULE PO SCH (13:15)
[2019-03-07] MEDS ORDERED: NICOTINE 14 MG PATCH TOP PRN (13:16)
[2019-03-07 16:02] VITALS: BP 127/77
[2019-03-07] MEDS ORDERED: DOXAZOSIN 1 MG TABLET PO SCH (21:00)
[2019-03-08] MEDS ORDERED: amLODIPine 5 MG TABLET PO SCH (09:00)
[2019-03-08] MEDS ORDERED: ATORVASTATIN 40 MG TABLET PO SCH (09:00)
[2019-03-08] MEDS ORDERED: LISINOPRIL 20 MG TABLET PO SCH (09:00)
== END 2019-03-07 16:26 | disposition home or self-care (01) | DRG 392 ==
LOC: ED 18:03 → MS3 21:46 → OBSVTOIN 03-07 07:38
PROVIDERS: ADMIT Internal Medicine; ATTEND Nurse Practitioner Gerontology
DX: R11.2 Nausea with vomiting, unspecified (principal); K59.01 Slow transit constipation; D72.829 Elevated white blood cell count, unspecified; R82.90 Unspecified abnormal findings in urine; A08.4 Viral intestinal infection, unspecified; N39.0 Urinary tract infection, site not specified; G80.9 Cerebral palsy, unspecified; K59.09 Other constipation; N40.1 Benign prostatic hyperplasia with lower urinary tract symptoms; R33.8 Other retention of urine; I69.319 Unspecified symptoms and signs involving cognitive functions following cerebral infarction; F01.50 Vascular dementia, unspecified severity, without behavioral disturbance, psychotic disturbance, mood disturbance, and anxiety; I10 Essential (primary) hypertension; E78.5 Hyperlipidemia, unspecified; E11.9 Type 2 diabetes mellitus without complications; Z87.898 Personal history of other specified conditions; Z79.4 Long term (current) use of insulin; Z96.0 Presence of urogenital implants; Z79.899 Other long term (current) drug therapy; Z79.82 Long term (current) use of aspirin; Z79.02 Long term (current) use of antithrombotics/antiplatelets
CPT/HCPCS: 36415; 70450; 74019; 74177; 80048; 80053; 81001; 83036; 83690; 85025; 87086; 96365; 96375; 96376; 99281; 99285; A9270; G0378; J1815; J2765; Q9967; 80306; 81003

== ENCOUNTER 2019-03-20 21:00 | Outpatient (CLI) | payer MEDICARE, MEDICAID ==
[2019-03-20 01:22] LABS: BILIRUBIN,URINE NEGATIVE (NEGATIVE); GLUCOSE, URINE (UA) NEGATIVE (NEGATIVE); KETONES,URINE (UA) NEGATIVE (NEGATIVE); LEUKOCYTE ESTERASE, URINE SMALL (NEGATIVE); NITRITE,URINE NEGATIVE (NEGATIVE); OCCULT BLOOD,URINE SMALL (NEGATIVE); PROTEIN,URINE 30 mg/dL (NEGATIVE); UROBILINOGEN,URINE 0.2 (NORMAL) E.U./dL (NORMAL)
[2019-03-20 01:24] LABS: CLARITY,URINE HAZY (CLEAR)
[2019-03-20 01:31] LABS: BACTERIA,URINE Many /HPF (None Seen); RBC,URINE 0-5 /HPF (0-5); SQUAMOUS EPITHELIAL CELL,UR NONE SEEN (<= Few)
== END 2019-03-20 23:59 | disposition home or self-care (01) ==
LOC: LAB.R 21:00
DX: N39.0 Urinary tract infection, site not specified (principal)
CPT/HCPCS: 81001; 81003; 87077; 87086; 87181

== ENCOUNTER 2019-03-21 09:44 | Outpatient (CLI) | payer MEDICARE, MEDICAID | END 2019-03-21 09:45 | disposition critical access hospital (66) | LOC: EMS 09:44 | PROVIDERS: ATTEND Surgery | DX: R10.32 Left lower quadrant pain (principal) | CPT/HCPCS: A0425; A0429 ==

== ENCOUNTER 2019-03-21 09:48 | Emergency (ER) | payer MEDICARE, MEDICAID ==
--- NOTE | 2019-03-21 10:06 | ED Physician Documentation ---
PD HPI ABD PAIN - Stated complaint Stated Complaint: ABD PX - Chief complaint Chief Complaint: Abd Pain - History obtained from History obtained from: Patient, EMS - History of Present Illness Timing - onset: Unknown Timing - duration: Days Timing - details: Gradual onset, Still present Quality: Cramping, Fullness/distended Location: LLQ Improved by: Laying still Worsened by: Moving, Position, Palpation Associated symptoms: Nausea, Constipation. No: Vomiting Similar symptoms before: Diagnosis (bowel obstruction) - Additional information Additional information: 64-year-old male who is a resident of [facility], has a history of urinary retention and he has removed his Bryant catheter himself about 1 week ago. He has progressive worsening abdominal pain and constipation. He is now developed hiccups. Review of Systems Unable to obtain: Dementia Constitutional: reports: Fever Respiratory: denies: Cough GI: reports: Abdominal Pain : reports: Unable to Void PD PAST MEDICAL HISTORY - Past Medical History Cardiovascular: Hypertension, High cholesterol Respiratory: Pneumonia Neuro: Cerebral palsy, CVA, Other Endocrine/Autoimmune: Type 2 diabetes GI: None : Benign prostate hypertrophy, Retention, Chronic bladder infection, Renal insuffiency, Indwelling catheter Psych: Depression, Anxiety Musculoskeletal: Fatigue, Chronic back pain Derm: None - Past Surgical History Past Surgical History: Yes - Present Medications Home Medications: Ambulatory Orders Medication Instructions Recorded Confirmed Doxazosin [Cardura] 1 mg PO QPM #30 tablet 08/27/18 03/06/19 Lisinopril [Zestril] 20 mg PO DAILY #30 tablet 08/27/18 03/06/19 Tamsulosin [Flomax] 0.4 mg PO DAILY #30 capsule 08/27/18 03/07/19 Insulin Glargine,Hum.rec.anlog 24 unit SUBQ DAILY 03/06/19 03/07/19 [Basaglar Kwikpen U-100] Acetaminophen 650 mg PO Q4HR PRN 03/07/19 03/07/19 Amox/Clav 875/125 [Augmentin 1 tab PO BID #14 tablet 03/07/19 875/125] Aspirin 325 mg PO DAILY 03/07/19 03/07/19 Atorvastatin Calcium 80 mg PO DAILY 03/07/19 03/07/19 Clopidogrel [Plavix] 75 mg PO DAILY 03/07/19 03/07/19 Ibuprofen 400 mg PO DAILY PRN 03/07/19 03/07/19 Insulin Lispro 0 unit SQ DAILY 03/07/19 03/07/19 Insulin Lispro 7 units SQ TID 03/07/19 03/07/19 Nicotine 14 mg Patch [Nicoderm] 1 patch TD DAILY PRN 03/07/19 03/07/19 Ondansetron HCl [Zofran] 4 mg PO Q6H PRN 03/07/19 03/07/19 Saccharomyces Boulardii [Florastor] 250 mg PO BID #14 capsule 03/07/19 Thiamine [Vitamin B-1] 100 mg PO DAILY 03/07/19 03/07/19 amLODIPine [Norvasc] 10 mg PO DAILY 03/07/19 03/07/19 Levofloxacin [Levaquin] 500 mg PO DAILY #10 tablet 03/21/19 - Allergies Allergies/Adverse Reactions: Allergies Allergy/AdvReac Type Severity Reaction Status Date / Time No Known Drug Allergies Allergy Verified 03/21/19 09:53 - Social History Does the pt smoke?: No Smoking Status: Never smoker Does the pt drink ETOH?: No Does the pt have substance abuse?: Yes - Immunizations Immunizations are current?: Yes - POLST Patient has POLST: Yes POLST Status: Full Code PD ED PE NORMAL - Vitals Vital signs reviewed: Yes (febrile ) - General General: Well developed/nourished, Other (The patient is hiccupping and appears to be in pain with moaning. He answers most questions with I dont know and I cant remember) - HEENT HEENT: Atraumatic, PERRL, EOMI - Neck Neck: Supple, no meningeal sign, No bony TTP - Cardiac Cardiac: RRR, No murmur - Respiratory Respiratory: No respiratory distress, Clear bilaterally - Abdomen Abdomen: Other (There is distention of the lower abdomen and this is tender consistent with a full bladder. ) - Back Back: No CVA TTP, No spinal TTP - Derm Derm: Normal color, Warm and dry, No rash - Extremities Extremities: No deformity, No edema - Neuro Neuro: No motor deficit, No sensory deficit Eye Opening: Spontaneous Motor: Obeys Commands Verbal: Confused GCS Score: 14 - Psych Psych: Normal mood, Normal affect Results - Vitals Vitals: Vital Signs - 24 hr 03/21/19 03/21/19 03/21/19 09:53 10:29 11:47 Temperature 38.3 C H Heart Rate 85 80 70 Respiratory 20 18 18 Rate Blood Pressure 150/87 H 127/89 H 124/80 O2 Saturation 99 94 100 03/21/19 03/21/19 13:06 13:31 Temperature 37.5 C Heart Rate 87 Respiratory 18 Rate Blood Pressure 120/82 H O2 Saturation 96 Oxygen O2 Source [With Activity] Nasal cannula O2 Source Room air - Labs Labs: Laboratory Tests 03/21/19 03/21/19 03/21/19 10:15 11:14 11:14 WBC 14.5 H RBC 4.17 L Hgb 12.6 L Hct 37.2 L MCV 89.2 MCH 30.2 MCHC 33.9 RDW 13.3 Plt Count 205 MPV 11.0 Neut # (Auto) 12.5 H Lymph # (Auto) 0.9 L [place] # (Auto) 1.0 Eos # (Auto) 0.0 Baso # (Auto) 0.0 Absolute Nucleated RBC 0.00 Nucleated RBC % 0.0 Sodium 139 Potassium 3.9 Chloride 104 Carbon Dioxide 26 Anion Gap 9.0 BUN 29 H Creatinine 1.3 H Estimated GFR (MDRD) 55 L Glucose 134 H Lactic Acid Calcium 9.6 Total Bilirubin 0.8 AST 21 ALT 30 Alkaline Phosphatase 60 Total Protein 7.7 Albumin 3.6 Globulin 4.1 Albumin/Globulin Ratio 0.9 L Lipase 21 L Urine Color YELLOW Urine Clarity CLOUDY Urine pH 6.0 Ur Specific [place] 1.015 Urine Protein 30 H Urine Glucose (UA) NEGATIVE Urine Ketones NEGATIVE Urine Occult Blood MODERATE H Urine Nitrite POSITIVE H Urine Bilirubin NEGATIVE Urine Urobilinogen 0.2 (NORMAL) Ur Leukocyte Esterase MODERATE H Urine RBC 0-5 Urine WBC >25 H Ur Squamous Epith Cells NONE SEEN Urine Bacteria Moderate H Ur Microscopic Review INDICATED Urine Culture Comments INDICATED 03/21/19 11:14 WBC RBC Hgb Hct MCV MCH MCHC RDW Plt Count MPV Neut # (Auto) Lymph # (Auto) [place] # (Auto) Eos # (Auto) Baso # (Auto) Absolute Nucleated RBC Nucleated RBC % Sodium Potassium Chloride Carbon Dioxide Anion Gap BUN Creatinine Estimated GFR (MDRD) Glucose Lactic Acid 1.5 Calcium Total Bilirubin AST ALT Alkaline Phosphatase Total Protein Albumin Globulin Albumin/Globulin Ratio Lipase Urine Color Urine Clarity Urine pH Ur Specific [place] Urine Protein Urine Glucose (UA) Urine Ketones Urine Occult Blood Urine Nitrite Urine Bilirubin Urine Urobilinogen Ur Leukocyte Esterase Urine RBC Urine WBC Ur Squamous Epith Cells Urine Bacteria Ur Microscopic Review Urine Culture Comments PD MEDICAL DECISION MAKING - ED course Complexity details: reviewed results, re-evaluated patient, considered differential, d/w patient, d/w family ED course: 64-year-old male assisted resident has a history of urinary retention and he has pulled his Bryant catheter out he has retained urine again. He has infection as well. A Bryant catheter is replaced and he is administered Rocephin. We will place him on some Levaquin. He has marked improvement and resolution of his hiccups. Departure - Departure Disposition: 01 Home, Self Care Clinical Impression: Acute urinary retention Urinary tract infection Qualifiers: Urinary tract infection type: acute cystitis Hematuria presence: without hematuria Qualified Code(s): N30.00 - Acute cystitis without hematuria Condition: Stable Instructions: ED Catheter Care Bryant, ED Retention Urinary Male, ED UTI Cystitis Male Follow-Up: Calderon Hwang MD [Primary Care Provider] - Prescriptions: Levofloxacin [Levaquin] 500 mg PO DAILY #10 tablet Discharge Date/Time: 03/21/19 13:37
[2019-03-21 10:32] LABS: BILIRUBIN,URINE NEGATIVE (NEGATIVE); GLUCOSE, URINE (UA) NEGATIVE (NEGATIVE); KETONES,URINE (UA) NEGATIVE (NEGATIVE); LEUKOCYTE ESTERASE, URINE MODERATE (NEGATIVE); NITRITE,URINE POSITIVE (NEGATIVE); OCCULT BLOOD,URINE MODERATE (NEGATIVE); PROTEIN,URINE 30 mg/dL (NEGATIVE); UROBILINOGEN,URINE 0.2 (NORMAL) E.U./dL (NORMAL)
[2019-03-21 10:33] LABS: CLARITY,URINE CLOUDY (CLEAR)
[2019-03-21 10:41] LABS: BACTERIA,URINE Moderate /HPF (None Seen); RBC,URINE 0-5 /HPF (0-5); SQUAMOUS EPITHELIAL CELL,UR NONE SEEN (<= Few)
[2019-03-21 11:16] LABS: BASOPHILS % (AUTO) 0.2 %; HGB - HEMOGLOBIN 12.6 g/dL (14.0-18.0); LYMPHOCYTES # (AUTO) 0.9 10^3/uL (1.5-3.5); LYMPHOCYTES % (AUTO) 6.5 %; MEAN CORPUSCULAR HEMOGLOBIN 30.2 pg (27.0-31.0); MEAN CORPUSCULAR HGB CONC 33.9 g/dL (32.0-36.0); MEAN CORPUSCULAR VOLUME 89.2 fL (80.0-94.0); MONOCYTES % (AUTO) 6.6 %; NEUTROPHILS # (AUTO) 12.5 10^3/uL (1.5-6.6); NEUTROPHILS % (AUTO) 86.2 %; PLT - PLATELET COUNT 205 10^3/uL (130-450); RED BLOOD COUNT 4.17 10^6/uL (4.70-6.10); RED CELL DISTRIBUTION WIDTH 13.3 % (12.0-15.0); WHITE BLOOD COUNT 14.5 x10^3/uL (4.8-10.8)
[2019-03-21 11:30] LABS: ALBUMIN 3.6 g/dL (3.2-5.5); ALBUMIN/GLOBULIN RATIO 0.9 (1.0-2.2); BILIRUBIN,TOTAL 0.8 mg/dL (0.2-1.0); CALCIUM 9.6 mg/dL (8.5-10.3); CREATININE 1.3 mg/dL (0.6-1.2); TOTAL PROTEIN 7.7 g/dL (6.7-8.2)
[2019-03-21] MEDS ORDERED: cefTRIAXone 1 GM in SODIUM CHLORIDE 0.9% MINIBAG 100 ML IV STA (12:23)
[2019-03-21 13:07] VITALS: BP 120/82
== END 2019-03-21 13:37 | disposition home or self-care (01) ==
LOC: EDUNIT# → ED 09:48
DX: N30.00 Acute cystitis without hematuria (principal); R33.9 Retention of urine, unspecified; R06.6 Hiccough; G80.9 Cerebral palsy, unspecified; I10 Essential (primary) hypertension; E11.9 Type 2 diabetes mellitus without complications; Z79.4 Long term (current) use of insulin; Z79.02 Long term (current) use of antithrombotics/antiplatelets; Z79.82 Long term (current) use of aspirin
CPT/HCPCS: 36415; 51702; 80053; 81001; 81003; 83605; 83690; 85025; 87077; 87086; 87181; 96365; 99284

== ENCOUNTER 2019-03-25 16:04 | Outpatient (CLI) | payer MEDICARE, MEDICAID | END 2019-03-25 16:05 | disposition critical access hospital (66) | LOC: EMS 16:04 | PROVIDERS: ATTEND Surgery | DX: N48.89 Other specified disorders of penis (principal) ==

== ENCOUNTER 2019-03-25 16:10 | Emergency (ER) | payer MEDICARE, MEDICAID ==
[2019-03-25] MEDS ORDERED: chlorproMAZINE 25 MG in SODIUM CHLORIDE 0.9% 500 ML IV ONE (16:36)
[2019-03-25] MEDS ORDERED: PANTOPRAZOLE 40 MG VIAL IVP STA (16:36)
--- NOTE | 2019-03-25 16:38 | ED Physician Documentation ---
PD HPI ABD PAIN - Stated complaint Stated Complaint: ALOC - Chief complaint Chief Complaint: Abd Pain - History obtained from History obtained from: Patient, EMS - History of Present Illness Timing - onset: Today (84-year-old gentleman presents from a [facility] by ambulance. His complaint is different than what he was brought in for. If you ask him, noting that his memory is quite bad, he says he is here for indigestion. Is been going on for 2 weeks. It feels like his chest is on fire. He has been trying Maalox and Tums without relief. That said, his history is unreliable. He does not know he lives in a [facility]. It seems like this is his baseline ever since he had a stroke. Per the [facility] he was sent in because his Bryant got pulled out and there is blood at the meatus.) Review of Systems Unable to obtain: Confused PD PAST MEDICAL HISTORY - Past Medical History Cardiovascular: Hypertension, High cholesterol Respiratory: Pneumonia Neuro: Cerebral palsy, CVA, Other Endocrine/Autoimmune: Type 2 diabetes GI: None : Benign prostate hypertrophy, Retention, Chronic bladder infection, Renal insuffiency, Indwelling catheter Psych: Depression, Anxiety Musculoskeletal: Fatigue, Chronic back pain Derm: None - Past Surgical History Past Surgical History: Yes - Present Medications Home Medications: Ambulatory Orders Medication Instructions Recorded Confirmed Doxazosin [Cardura] 1 mg PO QPM #30 tablet 08/27/18 03/06/19 Lisinopril [Zestril] 20 mg PO DAILY #30 tablet 08/27/18 03/06/19 Tamsulosin [Flomax] 0.4 mg PO DAILY #30 capsule 08/27/18 03/07/19 Insulin Glargine,Hum.rec.anlog 24 unit SUBQ DAILY 03/06/19 03/07/19 [Basaglar Kwikpen U-100] Acetaminophen 650 mg PO Q4HR PRN 03/07/19 03/07/19 Amox/Clav 875/125 [Augmentin 1 tab PO BID #14 tablet 03/07/19 875/125] Aspirin 325 mg PO DAILY 03/07/19 03/07/19 Atorvastatin Calcium 80 mg PO DAILY 03/07/19 03/07/19 Clopidogrel [Plavix] 75 mg PO DAILY 03/07/19 03/07/19 Ibuprofen 400 mg PO DAILY PRN 03/07/19 03/07/19 Insulin Lispro 0 unit SQ DAILY 03/07/19 03/07/19 Insulin Lispro 7 units SQ TID 03/07/19 03/07/19 Nicotine 14 mg Patch [Nicoderm] 1 patch TD DAILY PRN 03/07/19 03/07/19 Ondansetron HCl [Zofran] 4 mg PO Q6H PRN 03/07/19 03/07/19 Saccharomyces Boulardii [Florastor] 250 mg PO BID #14 capsule 03/07/19 Thiamine [Vitamin B-1] 100 mg PO DAILY 03/07/19 03/07/19 amLODIPine [Norvasc] 10 mg PO DAILY 03/07/19 03/07/19 Levofloxacin [Levaquin] 500 mg PO DAILY #10 tablet 03/21/19 - Allergies Allergies/Adverse Reactions: Allergies Allergy/AdvReac Type Severity Reaction Status Date / Time No Known Drug Allergies Allergy Verified 03/21/19 09:53 - Social History Does the pt smoke?: No Smoking Status: Never smoker Does the pt drink ETOH?: No Does the pt have substance abuse?: Yes - Immunizations Immunizations are current?: Yes - POLST Patient has POLST: Yes POLST Status: Full Code PD ED PE NORMAL - Vitals Vital signs reviewed: Yes - General General: Other (Alert oriented to person only, no distress except hiccuping a lot) - HEENT HEENT: PERRL, EOMI - Neck Neck: Supple, no meningeal sign, No bony TTP - Cardiac Cardiac: RRR, No murmur - Respiratory Respiratory: No respiratory distress, Clear bilaterally - Abdomen Abdomen: Soft, Non tender - Psych Psych: Normal mood, Normal affect Results - Vitals Vitals: Vital Signs - 24 hr 03/25/19 03/25/19 03/25/19 16:25 17:44 18:01 Temperature 37.1 C 36.8 C Heart Rate 75 72 89 Respiratory 18 18 16 Rate Blood Pressure 131/83 H 101/77 101/77 O2 Saturation 98 97 98 Oxygen O2 Source [With Activity] Nasal cannula O2 Source Room air - EKG (time done) 1654 Rate: Rate (enter#) (70) Rhythm: NSR [place]: Normal Intervals: Normal [place] QRS: Normal Ischemia: Normal ST segments, Q waves (inferior) - Labs Labs: Laboratory Tests 03/25/19 03/25/19 03/25/19 17:00 17:00 17:00 WBC 6.3 RBC 3.94 L Hgb 11.5 L Hct 35.2 L MCV 89.3 MCH 29.2 MCHC 32.7 RDW 13.2 Plt Count 218 MPV 11.3 Neut # (Auto) 4.3 Lymph # (Auto) 1.4 L [place] # (Auto) 0.6 Eos # (Auto) 0.0 Baso # (Auto) 0.0 Absolute Nucleated RBC 0.00 Nucleated RBC % 0.0 Sodium 139 Potassium 3.9 Chloride 101 Carbon Dioxide 28 Anion Gap 10.0 BUN 35 H Creatinine 1.5 H Estimated GFR (MDRD) 47 L Glucose 174 H Calcium 9.4 Total Bilirubin 0.7 AST 19 ALT 26 Alkaline Phosphatase 56 Troponin I High Sens 12.5 Total Protein 7.2 Albumin 3.2 Globulin 4.0 Albumin/Globulin Ratio 0.8 L Lipase 21 L Urine Color Urine Clarity Urine pH Ur Specific [place] Urine Protein Urine Glucose (UA) Urine Ketones Urine Occult Blood Urine Nitrite Urine Bilirubin Urine Urobilinogen Ur Leukocyte Esterase Urine RBC Urine WBC Ur Squamous Epith Cells Urine Bacteria Ur Microscopic Review Urine Culture Comments 03/25/19 17:39 WBC RBC Hgb Hct MCV MCH MCHC RDW Plt Count MPV Neut # (Auto) Lymph # (Auto) [place] # (Auto) Eos # (Auto) Baso # (Auto) Absolute Nucleated RBC Nucleated RBC % Sodium Potassium Chloride Carbon Dioxide Anion Gap BUN Creatinine Estimated GFR (MDRD) Glucose Calcium Total Bilirubin AST ALT Alkaline Phosphatase Troponin I High Sens Total Protein Albumin Globulin Albumin/Globulin Ratio Lipase Urine Color YELLOW Urine Clarity HAZY Urine pH 6.5 Ur Specific [place] 1.010 Urine Protein NEGATIVE Urine Glucose (UA) NEGATIVE Urine Ketones NEGATIVE Urine Occult Blood LARGE H Urine Nitrite NEGATIVE Urine Bilirubin NEGATIVE Urine Urobilinogen 1 (NORMAL) Ur Leukocyte Esterase NEGATIVE Urine RBC 6-10 H Urine WBC 0-3 Ur Squamous Epith Cells RARE Squamous Urine Bacteria Rare Ur Microscopic Review INDICATED Urine Culture Comments NOT INDICATED PD MEDICAL DECISION MAKING - ED course ED course: 64-year-old gentleman here for Bryant catheter replacement, it was replaced by the nurse. There is expected blood in his urine but no evidence of infection. His hiccups were treated with Thorazine with good effect. Departure - Departure Disposition: 01 Home, Self Care Clinical Impression: Indwelling Bryant catheter present, Hiccups Condition: Stable Record reviewed to determine appropriate education?: Yes Comments: Return as needed for further evaluation and treatment. Follow-up with the doctor at [facility].
[2019-03-25 17:35] LABS: BASOPHILS % (AUTO) 0.5 %; HGB - HEMOGLOBIN 11.5 g/dL (14.0-18.0); LYMPHOCYTES # (AUTO) 1.4 10^3/uL (1.5-3.5); LYMPHOCYTES % (AUTO) 22.5 %; MEAN CORPUSCULAR HEMOGLOBIN 29.2 pg (27.0-31.0); MEAN CORPUSCULAR HGB CONC 32.7 g/dL (32.0-36.0); MEAN CORPUSCULAR VOLUME 89.3 fL (80.0-94.0); MEAN PLATELET VOLUME 11.3 fL (7.4-11.4); MONOCYTES # (AUTO) 0.6 10^3/uL (0.0-1.0); MONOCYTES % (AUTO) 9.5 %; NEUTROPHILS # (AUTO) 4.3 10^3/uL (1.5-6.6); NEUTROPHILS % (AUTO) 67.2 %; PLT - PLATELET COUNT 218 10^3/uL (130-450); RED BLOOD COUNT 3.94 10^6/uL (4.70-6.10); RED CELL DISTRIBUTION WIDTH 13.2 % (12.0-15.0); WHITE BLOOD COUNT 6.3 x10^3/uL (4.8-10.8)
[2019-03-25 17:46] LABS: ALBUMIN 3.2 g/dL (3.2-5.5); ALBUMIN/GLOBULIN RATIO 0.8 (1.0-2.2); BILIRUBIN,TOTAL 0.7 mg/dL (0.2-1.0); CALCIUM 9.4 mg/dL (8.5-10.3); CREATININE 1.5 mg/dL (0.6-1.2); TOTAL PROTEIN 7.2 g/dL (6.7-8.2)
[2019-03-25 17:51] LABS: BILIRUBIN,URINE NEGATIVE (NEGATIVE); GLUCOSE, URINE (UA) NEGATIVE (NEGATIVE); KETONES,URINE (UA) NEGATIVE (NEGATIVE); LEUKOCYTE ESTERASE, URINE NEGATIVE (NEGATIVE); NITRITE,URINE NEGATIVE (NEGATIVE); OCCULT BLOOD,URINE LARGE (NEGATIVE); PH,URINE 6.5 PH (5.0-7.5); PROTEIN,URINE NEGATIVE (NEGATIVE); UROBILINOGEN,URINE 1 (NORMAL) E.U./dL (NORMAL)
[2019-03-25 17:56] LABS: CLARITY,URINE HAZY (CLEAR)
[2019-03-25 18:07] LABS: BACTERIA,URINE Rare /HPF (None Seen); SQUAMOUS EPITHELIAL CELL,UR RARE Squamous (<= Few)
[2019-03-25 19:11] VITALS: BP 100/81
== END 2019-03-25 19:10 | disposition home or self-care (01) ==
LOC: EDUNIT# → ED 16:10
DX: Z46.82 Encounter for fitting and adjustment of non-vascular catheter (principal); R06.6 Hiccough; I10 Essential (primary) hypertension; E78.01 Familial hypercholesterolemia; G80.9 Cerebral palsy, unspecified; Z86.73 Personal history of transient ischemic attack (TIA), and cerebral infarction without residual deficits; E11.9 Type 2 diabetes mellitus without complications; Z79.4 Long term (current) use of insulin; R31.9 Hematuria, unspecified
CPT/HCPCS: 36415; 51702; 80053; 81001; 81003; 83690; 84484; 85025; 87086; 93005; 96365; 96366; 96375; 99281

== ENCOUNTER 2019-03-25 19:10 | Outpatient (CLI) | payer MEDICARE, MEDICAID | END 2019-03-25 19:11 | LOC: EMS 19:10 | PROVIDERS: ATTEND Surgery | DX: T83.021A Displacement of indwelling urethral catheter, initial encounter (principal); N48.89 Other specified disorders of penis; F03.90 Unspecified dementia, unspecified severity, without behavioral disturbance, psychotic disturbance, mood disturbance, and anxiety; I63.9 Cerebral infarction, unspecified ==

== ENCOUNTER 2019-07-19 06:26 | Outpatient (CLI) | payer MEDICARE, MEDICAID | END 2019-07-19 06:27 | disposition critical access hospital (66) | LOC: EMS 06:26 | PROVIDERS: ATTEND Surgery | DX: R39.198 Other difficulties with micturition (principal) | CPT/HCPCS: A0425; A0429 ==

== ENCOUNTER 2019-07-19 06:42 | Emergency (ER) | payer MEDICARE, MEDICAID ==
--- NOTE | 2019-07-19 07:04 | ED Physician Documentation ---
PD HPI MALE - Stated complaint Stated Complaint: DIFF. URINATING - History obtained from History obtained from: Patient - History of Present Illness Timing - onset: Today Timing - details: Abrupt onset Associated symptoms: Unable to urinate, Lara problem (reportedly had lara changed in the past 1-2 days and is not draining well and he is feeling bladder fullness.) Similar symptoms before: Diagnosis (chronic lara) Review of Systems Unable to obtain: Dementia (from prior CVA, with poor memory) Constitutional: denies: Fever GI: reports: Abdominal Pain (fullness in bladder area), Nausea, Vomiting, Diarrhea : reports: Unable to Void PD PAST MEDICAL HISTORY - Past Medical History Cardiovascular: Hypertension, High cholesterol Respiratory: Pneumonia Neuro: Cerebral palsy, CVA, Other Endocrine/Autoimmune: Type 2 diabetes GI: None : Benign prostate hypertrophy, Retention, Chronic bladder infection, Renal insuffiency, Indwelling catheter Psych: Depression, Anxiety Musculoskeletal: Fatigue, Chronic back pain Derm: None - Past Surgical History Past Surgical History: Yes - Present Medications Home Medications: Ambulatory Orders Medication Instructions Recorded Confirmed Doxazosin [Cardura] 1 mg PO QPM #30 tablet 08/27/18 03/06/19 Lisinopril [Zestril] 20 mg PO DAILY #30 tablet 08/27/18 03/06/19 Tamsulosin [Flomax] 0.4 mg PO DAILY #30 capsule 08/27/18 03/07/19 Insulin Glargine,Hum.rec.anlog 24 unit SUBQ DAILY 03/06/19 03/07/19 [Basaglar Kwikpen U-100] Acetaminophen 650 mg PO Q4HR PRN 03/07/19 03/07/19 Amox/Clav 875/125 [Augmentin 1 tab PO BID #14 tablet 03/07/19 875/125] Aspirin 325 mg PO DAILY 03/07/19 03/07/19 Atorvastatin Calcium 80 mg PO DAILY 03/07/19 03/07/19 Clopidogrel [Plavix] 75 mg PO DAILY 03/07/19 03/07/19 Ibuprofen 400 mg PO DAILY PRN 03/07/19 03/07/19 Insulin Lispro 0 unit SQ DAILY 03/07/19 03/07/19 Insulin Lispro 7 units SQ TID 03/07/19 03/07/19 Nicotine 14 mg Patch [Nicoderm] 1 patch TD DAILY PRN 03/07/19 03/07/19 Ondansetron HCl [Zofran] 4 mg PO Q6H PRN 03/07/19 03/07/19 Saccharomyces Boulardii [Florastor] 250 mg PO BID #14 capsule 03/07/19 Thiamine [Vitamin B-1] 100 mg PO DAILY 03/07/19 03/07/19 amLODIPine [Norvasc] 10 mg PO DAILY 03/07/19 03/07/19 Levofloxacin [Levaquin] 500 mg PO DAILY #10 tablet 03/21/19 Nitrofurantoin Monohyd/M-Cryst 100 mg PO BID #20 capsule 07/19/19 [Macrobid 100 mg Capsule] - Allergies Allergies/Adverse Reactions: Allergies Allergy/AdvReac Type Severity Reaction Status Date / Time No Known Drug Allergies Allergy Verified 03/21/19 09:53 - Social History Does the pt smoke?: No Smoking Status: Never smoker Does the pt drink ETOH?: No Does the pt have substance abuse?: Yes - Immunizations Immunizations are current?: Yes - POLST Patient has POLST: Yes POLST Status: Full Code PD ED PE NORMAL - Vitals Vital signs reviewed: Yes - General General: No acute distress, Well developed/nourished. No: Alert and oriented X 3 (knows he is at ER and his personal info. Not sure of date. Seems poor short term memory.) - Abdomen Abdomen: Normal bowel sounds, Soft, Non tender, Non distended, Other (fullness in bladder area) - Male Male : Other (no signs of infection at meatus.) - Rectal Rectal: Deferred - Back Back: No CVA TTP - Derm Derm: Normal color, Warm and dry - Neuro Neuro: No motor deficit Results - Vitals Vitals: Vital Signs - 24 hr 07/19/19 07/19/19 07:01 08:22 Temperature 36.5 C Heart Rate 80 88 Respiratory 16 16 Rate Blood Pressure 136/70 H 134/87 H O2 Saturation 98 97 Oxygen O2 Source [With Activity] Nasal cannula O2 Source Room air - Labs Labs: Laboratory Tests 07/19/19 07:00 Urine Color YELLOW Urine Clarity CLOUDY Urine pH 8.5 H Ur Specific [place] 1.015 Urine Protein 100 H Urine Glucose (UA) NEGATIVE Urine Ketones NEGATIVE Urine Occult Blood SMALL H Urine Nitrite NEGATIVE Urine Bilirubin NEGATIVE Urine Urobilinogen 0.2 (NORMAL) Ur Leukocyte Esterase LARGE H Urine RBC 0-5 Urine WBC >25 H Urine WBC Clumps PRESENT Ur Squamous Epith Cells NONE SEEN Urine Bacteria Moderate H Urine Culture Comments INDICATED PD MEDICAL DECISION MAKING - ED course Complexity details: considered differential (prior lara removed and new placed with good drainage of cloudy yellow urine. No blood. UA suggestive of infection though pt with chronic lara, so not sure. Can start Macrobid until cultures. Prior 2 UAs from February were positive for e.coli sensitive to macrobid.), d/w patient Departure - Departure Disposition: Home, Self Care Clinical Impression: Urinary retention Lara catheter problem Qualifiers: Encounter type: initial encounter Qualified Code(s): T83.9XXA - Unspecified complication of genitourinary prosthetic device, implant and graft, initial encounter Condition: Stable Record reviewed to determine appropriate education?: Yes Prescriptions: Nitrofurantoin Monohyd/M-Cryst [Macrobid 100 mg Capsule] 100 mg PO BID #20 capsule Comments: Continue current medications. Continue usual Lara catheter care. Nitrofurantoin twice a day initially for possible bladder infection. The culture will result in 2 or 3 days to confirm. Discharge Date/Time: 07/19/19 09:45
[2019-07-19 07:13] LABS: BILIRUBIN,URINE NEGATIVE (NEGATIVE); GLUCOSE, URINE (UA) NEGATIVE (NEGATIVE); KETONES,URINE (UA) NEGATIVE (NEGATIVE); LEUKOCYTE ESTERASE, URINE LARGE (NEGATIVE); NITRITE,URINE NEGATIVE (NEGATIVE); OCCULT BLOOD,URINE SMALL (NEGATIVE); PH,URINE 8.5 PH (5.0-7.5); PROTEIN,URINE 100 mg/dL (NEGATIVE); UROBILINOGEN,URINE 0.2 (NORMAL) E.U./dL (NORMAL)
[2019-07-19 07:20] LABS: CLARITY,URINE CLOUDY (CLEAR)
[2019-07-19 07:30] LABS: BACTERIA,URINE Moderate /HPF (None Seen); RBC,URINE 0-5 /HPF (0-5); SQUAMOUS EPITHELIAL CELL,UR NONE SEEN (<= Few); WBC CLUMPS,URINE PRESENT
[2019-07-19] MEDS ORDERED: NITROFURANTOIN MACRO 100 MG CAPSULE PO STA (07:35)
[2019-07-19 08:39] VITALS: BP 134/87
== END 2019-07-19 09:45 | disposition home or self-care (01) ==
LOC: EDUNIT# → ED 06:42
DX: R33.9 Retention of urine, unspecified (principal); T83.091A Other mechanical complication of indwelling urethral catheter, initial encounter; Y84.6 Urinary catheterization as the cause of abnormal reaction of the patient, or of later complication, without mention of misadventure at the time of the procedure; G80.9 Cerebral palsy, unspecified; I69.811 Memory deficit following other cerebrovascular disease; I10 Essential (primary) hypertension; E11.9 Type 2 diabetes mellitus without complications; Z79.4 Long term (current) use of insulin; Z79.02 Long term (current) use of antithrombotics/antiplatelets; Z79.82 Long term (current) use of aspirin
CPT/HCPCS: 51702; 81001; 87086; 99283; A9270; 87181

== ENCOUNTER 2019-07-30 20:48 | Outpatient (CLI) | payer MEDICARE, MEDICAID | END 2019-07-30 20:49 | disposition critical access hospital (66) | LOC: EMS 20:48 | PROVIDERS: ATTEND Surgery | DX: R06.02 Shortness of breath (principal); R41.0 Disorientation, unspecified; N48.89 Other specified disorders of penis | CPT/HCPCS: A0425; A0429 ==

== ENCOUNTER 2019-07-30 21:05 | Emergency (ER) | payer MEDICARE, MEDICAID ==
[2019-07-30 21:38] LABS: BILIRUBIN,URINE NEGATIVE (NEGATIVE); GLUCOSE, URINE (UA) NEGATIVE (NEGATIVE); KETONES,URINE (UA) NEGATIVE (NEGATIVE); LEUKOCYTE ESTERASE, URINE LARGE (NEGATIVE); NITRITE,URINE POSITIVE (NEGATIVE); OCCULT BLOOD,URINE TRACE-INTA (NEGATIVE); PH,URINE 8.5 PH (5.0-7.5); PROTEIN,URINE 30 mg/dL (NEGATIVE); UROBILINOGEN,URINE 0.2 (NORMAL) E.U./dL (NORMAL)
[2019-07-30 21:40] LABS: CLARITY,URINE HAZY (CLEAR)
[2019-07-30 21:45] LABS: BACTERIA,URINE Many /HPF (None Seen); CRYSTALS,URINE 3-5 Triple Phosphate /LPF; RBC,URINE 0-5 /HPF (0-5); SQUAMOUS EPITHELIAL CELL,UR NONE SEEN (<= Few)
[2019-07-30 22:05] LABS: BASOPHILS % (AUTO) 0.3 %; HGB - HEMOGLOBIN 11.8 g/dL (14.0-18.0); LYMPHOCYTES # (AUTO) 0.9 10^3/uL (1.5-3.5); LYMPHOCYTES % (AUTO) 7.9 %; MEAN CORPUSCULAR HEMOGLOBIN 30.6 pg (27.0-31.0); MEAN CORPUSCULAR HGB CONC 33.6 g/dL (32.0-36.0); MEAN CORPUSCULAR VOLUME 91.2 fL (80.0-94.0); MEAN PLATELET VOLUME 10.8 fL (7.4-11.4); MONOCYTES # (AUTO) 0.6 10^3/uL (0.0-1.0); MONOCYTES % (AUTO) 5.3 %; NEUTROPHILS # (AUTO) 9.9 10^3/uL (1.5-6.6); NEUTROPHILS % (AUTO) 86.1 %; PLT - PLATELET COUNT 203 10^3/uL (130-450); RED BLOOD COUNT 3.85 10^6/uL (4.70-6.10); RED CELL DISTRIBUTION WIDTH 13.2 % (12.0-15.0); WHITE BLOOD COUNT 11.5 x10^3/uL (4.8-10.8)
[2019-07-30 22:13] LABS: ALBUMIN 3.9 g/dL (3.2-5.5); ALBUMIN/GLOBULIN RATIO 1.1 (1.0-2.2); BILIRUBIN,TOTAL 0.4 mg/dL (0.2-1.0); CALCIUM 9.5 mg/dL (8.5-10.3); CREATININE 2.1 mg/dL (0.6-1.2); TOTAL PROTEIN 7.6 g/dL (6.7-8.2)
[2019-07-30] MEDS ORDERED: cefTRIAXone 1 GM VIAL IVP STA (22:47)
[2019-07-30] MEDS ORDERED: SODIUM CHLORIDE 0.9% 500 ML IV ONE (23:36)
--- NOTE | 2019-07-30 23:46 | ED Physician Documentation ---
History of Present Illness - Stated complaint Stated Complaint: SOA/ABD - Chief complaint Chief Complaint: Abd Pain - Additonal information Additional information: This is a 64-year-old male with a history of multi-infarct dementia, urinary r etention status post Bryant catheterization, who was brought in from [facility] with urinary discomfort and potentially some shortness of breath. According to staff at [facility], he typically is mildly demented, disoriented to date, and can be forgetful, today he appeared to be mildly agitated he was grabbing the genitalia and seemed to be in pain, and also he was breathing very heavily when he was walking around. He has not obviously had a cough, and no measured fever. He has been on Bactrim for a urinary tract infection. At this time he is complaining of lower abdominal pain and the feeling like he needs to pee but he cannot. He denies nausea or vomiting denies chest pain or trouble breathing. EMS states that he was satting in the mid to high 90s on room air, and they did not witness any difficulty breathing. Review of Systems Constitutional: denies: Fever Nose: denies: Rhinorrhea / runny nose Cardiac: denies: Chest pain / pressure Respiratory: denies: Cough GI: reports: Abdominal Pain : reports: Unable to Void Neurologic: denies: Generalized weakness Immunocompromised: denies: Immunocompromised PD PAST MEDICAL HISTORY - Past Medical History Past Medical History: Yes Cardiovascular: Hypertension, High cholesterol Respiratory: Pneumonia Neuro: Cerebral palsy, CVA, Other Endocrine/Autoimmune: Type 2 diabetes GI: None : Benign prostate hypertrophy, Retention, Chronic bladder infection, Renal insuffiency, Indwelling catheter Psych: Depression, Anxiety Musculoskeletal: Fatigue, Chronic back pain Derm: None - Past Surgical History Past Surgical History: Yes - Present Medications Home Medications: Ambulatory Orders Medication Instructions Recorded Confirmed Doxazosin [Cardura] 1 mg PO QPM #30 tablet 08/27/18 07/30/19 Tamsulosin [Flomax] 0.4 mg PO DAILY #30 capsule 08/27/18 07/30/19 Insulin Glargine,Hum.rec.anlog 24 unit SUBQ DAILY 03/06/19 07/30/19 [Basaglar Kwikpen U-100] Acetaminophen 650 mg PO Q4HR PRN 03/07/19 07/30/19 Aspirin 325 mg PO DAILY 03/07/19 07/30/19 Atorvastatin Calcium 80 mg PO DAILY 03/07/19 07/30/19 Clopidogrel [Plavix] 75 mg PO DAILY 03/07/19 07/30/19 Ibuprofen 400 mg PO DAILY PRN 03/07/19 07/30/19 Insulin Lispro 7 units SQ TID 03/07/19 07/30/19 Nicotine 14 mg Patch [Nicoderm] 1 patch TD DAILY PRN 03/07/19 03/07/19 Ondansetron HCl [Zofran] 4 mg PO Q6H PRN 03/07/19 07/30/19 Saccharomyces Boulardii [Florastor] 250 mg PO BID #14 capsule 03/07/19 07/30/19 Thiamine [Vitamin B-1] 100 mg PO DAILY 03/07/19 07/30/19 amLODIPine [Norvasc] 10 mg PO DAILY 03/07/19 07/30/19 Levofloxacin [Levaquin] 500 mg PO DAILY #10 tablet 03/21/19 07/30/19 Cefdinir 300 mg PO BID #14 capsule 07/31/19 - Allergies Allergies/Adverse Reactions: Allergies Allergy/AdvReac Type Severity Reaction Status Date / Time No Known Drug Allergies Allergy Verified 07/30/19 21:18 - Social History Does the pt smoke?: No Smoking Status: Never smoker Does the pt drink ETOH?: No Does the pt have substance abuse?: Yes - Immunizations Immunizations are current?: Yes - POLST Patient has POLST: Yes POLST Status: Full Code PD ED PE NORMAL - Vitals Vital signs reviewed: Yes - General General: Other (Appears uncomfortable, but nontoxic.) - HEENT HEENT: PERRL - Neck Neck: Supple, no meningeal sign - Cardiac Cardiac: No murmur, Other (Tachycardic, regular rhythm) - Respiratory Respiratory: No respiratory distress, Clear bilaterally - Abdomen Abdomen: Normal bowel sounds, Other (Suprapubic region is mildly distended and exquisitely tender to palpation. There is no upper abdominal tenderness.) - Male Male : Other (Bryant catheter is in place there is urine leaking around the Bryant catheter. Penis is normal in appearance, there is some mucus around the catheter. The catheter is not draining. There is sediment in the line.) - Derm Derm: Warm and dry - Extremities Extremities: No deformity - Neuro Neuro: Other (Alert, conversational, disoriented to year, but knows place and general event. Moving all extremities, with symmetric strength, responsive to light touch over all extremities, no cranial nerve deficits, speech is fluent.) - Psych Psych: Normal mood, Normal affect Results - Vitals Vitals: Vital Signs - 24 hr 07/30/19 07/30/19 07/30/19 21:58 22:03 22:40 Temperature 36.9 C 37.1 C Heart Rate 82 51 L 72 Respiratory 18 14 14 Rate Blood Pressure 124/75 120/82 H 127/82 H O2 Saturation 97 96 98 07/31/19 00:29 Temperature 36.8 C Heart Rate 67 Respiratory 16 Rate Blood Pressure 106/63 O2 Saturation 100 Oxygen O2 Source [] Nasal cannula O2 Source Room air - EKG (time done) 21:11 Other comments: Other comments (Rate 109, rhythm sinus tachycardia, no Abnormal ST segment elevation or depression. QTc 464. No significant change from prior EKG on 03/25.) - Labs Labs: Microbiology 07/30/19 21:34 Urine Culture - Preliminary Urine,Catheterized Laboratory Tests 07/30/19 07/30/19 07/30/19 21:34 21:52 21:52 WBC 11.5 H RBC 3.85 L Hgb 11.8 L Hct 35.1 L MCV 91.2 MCH 30.6 MCHC 33.6 RDW 13.2 Plt Count 203 MPV 10.8 Neut # (Auto) 9.9 H Lymph # (Auto) 0.9 L [place] # (Auto) 0.6 Eos # (Auto) 0.0 Baso # (Auto) 0.0 Absolute Nucleated RBC 0.00 Nucleated RBC % 0.0 Sodium 135 Potassium 4.6 Chloride 103 Carbon Dioxide 21 Anion Gap 11.0 BUN 45 H Creatinine 2.1 H Estimated GFR (MDRD) 32 L Glucose 229 H Calcium 9.5 Total Bilirubin 0.4 AST 21 ALT 23 Alkaline Phosphatase 59 Total Protein 7.6 Albumin 3.9 Globulin 3.7 Albumin/Globulin Ratio 1.1 Lipase 26 Urine Color YELLOW Urine Clarity HAZY Urine pH 8.5 H Ur Specific [place] 1.010 Urine Protein 30 H Urine Glucose (UA) NEGATIVE Urine Ketones NEGATIVE Urine Occult Blood TRACE-INTA Urine Nitrite POSITIVE H Urine Bilirubin NEGATIVE Urine Urobilinogen 0.2 (NORMAL) Ur Leukocyte Esterase LARGE H Urine RBC 0-5 Urine WBC >25 H Ur Squamous Epith Cells NONE SEEN Urine Crystals 3-5 Triple Phosphate Urine Bacteria Many H Ur Microscopic Review INDICATED Urine Culture Comments INDICATED PD MEDICAL DECISION MAKING - ED course Complexity details: considered differential (UTI, urinary retention, electrolyte abnormality, enteritis, bowel obstruction, constipation, pneumonia, d ysrhythmia, ACS) ED course: On arrival patient is uncomfortable, tachycardic, he has a firm suprapubic region and he is urine leaking around his catheter which is not draining. The Bryant was unclogged, he had drainage of urine and his symptoms resolved. He does some sediment in the urine and we sent this for urinalysis that shows nitrite positive urine with many white blood cells, consistent with an infection. He is on Bactrim seems that this may not be effective in treating his UTI. He was given 1 g ceftriaxone and started on cefdinir. After his Bryant restarted functioning his abdomen is soft, benign, and nontender. He has no complaints whatsoever. He continues to deny any chest pain or shortness of breath. I have a high suspicion that his reported heavy breathing or difficulty breathing earlier was secondary to his urinary retention, likely due to pain or agitation. He has always had a normal oxygen saturation, his lungs are clear, and he is able to ambulate down and back in the subramanian without any changes to his oxygen saturation, and while holding a conversation. His EKG does not show any convincing signs of ischemia or dysrhythmia. He again has no chest pain. No leg swelling or signs of heart failure. His labs are notable for a creatinine of 2.1 which is elevated from his most recent value of 1.5, this is likely secondary to his obstruction. He was given a 500 cc bolus of normal saline. Given the mildness of his creatinine elevation compared to his baseline I do not think he warrants hospitalization but he will need repeated labs in the next several days, these instructions were given to patient, in his discharge instructions, and relayed to staff at [facility]. He has been observed in the ED for multiple hours and continues to be well-appearing with no complaints. He has mild disorientation but otherwise seems mentally with it and is not encephalopathic, and talking with staff he is at his baseline. He was discharged home in good condition. Departure - Departure Disposition: 01 Home, Self Care Clinical Impression: Urinary retention UTI (urinary tract infection) Qualifiers: Urinary tract infection type: acute cystitis Hematuria presence: without hematuria Qualified Code(s): N30.00 - Acute cystitis without hematuria Condition: Good Instructions: ED UTI Cystitis Male Follow-Up: Calderon Hwang MD [Primary Care Provider] - Within 3 Days (For follow up and repeat BMP to check creatinine) Prescriptions: Cefdinir 300 mg PO BID #14 capsule Comments: Jose Eduardo had a clogged Bryant leading to urinary retention as well as a urinary tract infection. We have started antibiotics, he should take the entire course of the antibiotic as prescribed. His creatinine was higher than usual, it was 2.1 and the last value in our system was 1.5. This is likely related to his fol ey blockage and should improve, but he should continue to drink adequate fluids and have his creatinine checked in the next 3 days Or as directed by his primary care provider. If he develops trouble breathing, chest pain, abdominal pain repeated vomiting or mental status changes please have him return to the emergency department. Discharge Date/Time: 07/31/19 01:15
[2019-07-31 00:30] VITALS: BP 106/63
== END 2019-07-31 01:15 | disposition home or self-care (01) ==
LOC: EDUNIT# → ED 21:05
DX: R33.8 Other retention of urine (principal); T83.091A Other mechanical complication of indwelling urethral catheter, initial encounter; N30.00 Acute cystitis without hematuria; R79.89 Other specified abnormal findings of blood chemistry; I10 Essential (primary) hypertension; G80.9 Cerebral palsy, unspecified; F01.50 Vascular dementia, unspecified severity, without behavioral disturbance, psychotic disturbance, mood disturbance, and anxiety; E11.29 Type 2 diabetes mellitus with other diabetic kidney complication; Z79.4 Long term (current) use of insulin
CPT/HCPCS: 36415; 80053; 81001; 81003; 83690; 85025; 87077; 87086; 87181; 93005; 96361; 96374; 99284

== ENCOUNTER 2019-09-03 19:59 | Outpatient (CLI) | payer MEDICARE, MEDICAID | END 2019-09-03 23:59 | disposition critical access hospital (66) | LOC: EMS 19:59 | PROVIDERS: ATTEND Surgery | DX: R33.9 Retention of urine, unspecified (principal); R52 Pain, unspecified | CPT/HCPCS: A0425; A0429 ==

== ENCOUNTER 2019-09-03 20:16 | Emergency (ER) | payer MEDICARE, MEDICAID ==
[2019-09-03 20:58] LABS: BILIRUBIN,URINE NEGATIVE (NEGATIVE); GLUCOSE, URINE (UA) NEGATIVE (NEGATIVE); KETONES,URINE (UA) NEGATIVE (NEGATIVE); LEUKOCYTE ESTERASE, URINE LARGE (NEGATIVE); NITRITE,URINE POSITIVE (NEGATIVE); OCCULT BLOOD,URINE SMALL (NEGATIVE); PH,URINE 8.5 PH (5.0-7.5); PROTEIN,URINE 100 mg/dL (NEGATIVE); UROBILINOGEN,URINE 0.2 (NORMAL) E.U./dL (NORMAL)
[2019-09-03 21:00] LABS: CLARITY,URINE HAZY (CLEAR)
[2019-09-03 21:11] LABS: BACTERIA,URINE Many /HPF (None Seen); CRYSTALS,URINE 0-2 Triple Phosphate /LPF; SQUAMOUS EPITHELIAL CELL,UR RARE Squamous (<= Few)
--- NOTE | 2019-09-03 21:14 | ED Physician Documentation ---
History of Present Illness - Stated complaint Stated Complaint: CATH ISSUE - Chief complaint Chief Complaint: UTI - History obtained from History obtained from: Patient (64-year-old male patient brought in by EMS today with chief complaint of "not been able to urinate". the patient he states that he has a history of not being able to urinate, he states that he was in the hospital for several days and discharged home yesterday for issues of not beening able to urinate. Patient denies any fevers chills nausea vomiting. States his bladder does feel full.) Review of Systems Constitutional: denies: Fever, Chills Nose: reports: Reviewed and negative Neurologic: reports: Confused PD PAST MEDICAL HISTORY - Past Medical History Cardiovascular: Hypertension, High cholesterol Respiratory: Pneumonia Neuro: Cerebral palsy, CVA, Other Endocrine/Autoimmune: Type 2 diabetes GI: None : Benign prostate hypertrophy, Retention, Chronic bladder infection, Renal i nsuffiency, Indwelling catheter Psych: Depression, Anxiety Musculoskeletal: Fatigue, Chronic back pain Derm: None - Past Surgical History Past Surgical History: Yes - Present Medications Home Medications: Ambulatory Orders Medication Instructions Recorded Confirmed Doxazosin [Cardura] 1 mg PO QPM #30 tablet 08/27/18 07/30/19 Tamsulosin [Flomax] 0.4 mg PO DAILY #30 capsule 08/27/18 07/30/19 Insulin Glargine,Hum.rec.anlog 24 unit SUBQ DAILY 03/06/19 07/30/19 [Basaglar Kwikpen U-100] Acetaminophen 650 mg PO Q4HR PRN 03/07/19 07/30/19 Aspirin 325 mg PO DAILY 03/07/19 07/30/19 Atorvastatin Calcium 80 mg PO DAILY 03/07/19 07/30/19 Clopidogrel [Plavix] 75 mg PO DAILY 03/07/19 07/30/19 Insulin Lispro 2 - 12 units SQ TID 03/07/19 07/30/19 Ondansetron HCl [Zofran] 8 mg PO Q6H PRN 03/07/19 07/30/19 Thiamine [Vitamin B-1] 100 mg PO DAILY 03/07/19 07/30/19 amLODIPine [Norvasc] 10 mg PO DAILY 03/07/19 07/30/19 Cefdinir 300 mg PO BID #14 capsule 09/03/19 Insulin Lispro [Insulin Lispro 7 units TID 09/03/19 09/03/19 Kwikpen U-100] Lisinopril [Zestril] 20 mg DAILY 09/03/19 09/03/19 - Allergies Allergies/Adverse Reactions: Allergies Allergy/AdvReac Type Severity Reaction Status Date / Time No Known Drug Allergies Allergy Verified 09/03/19 20:36 - Social History Does the pt smoke?: No Smoking Status: Never smoker Does the pt drink ETOH?: No Does the pt have substance abuse?: Yes - Immunizations Immunizations are current?: Yes - POLST Patient has POLST: Yes POLST Status: Full Code PD ED PE NORMAL - General General: No acute distress - HEENT HEENT: Atraumatic, PERRL, EOMI - Neck Neck: No adenopathy - Respiratory Respiratory: No respiratory distress, Clear bilaterally - Abdomen Abdomen: Normal bowel sounds, Soft, Non tender, Non distended Results - Vitals Vitals: Vital Signs - 24 hr 09/03/19 09/03/19 20:16 20:53 Temperature 37.3 C Heart Rate 71 76 Respiratory 16 Rate Blood Pressure 112/73 123/76 O2 Saturation 97 99 Oxygen O2 Source [With Activity] Nasal cannula O2 Source Room air - Labs Labs: Laboratory Tests 09/03/19 20:38 Urine Color YELLOW Urine Clarity HAZY Urine pH 8.5 H Ur Specific [place] 1.020 Urine Protein 100 H Urine Glucose (UA) NEGATIVE Urine Ketones NEGATIVE Urine Occult Blood SMALL H Urine Nitrite POSITIVE H Urine Bilirubin NEGATIVE Urine Urobilinogen 0.2 (NORMAL) Ur Leukocyte Esterase LARGE H Urine RBC 11-25 H Urine WBC >25 H Ur Squamous Epith Cells RARE Squamous Urine Crystals 0-2 Triple Phosphate Urine Bacteria Many H Ur Microscopic Review INDICATED Urine Culture Comments INDICATED Procedures - General procedure General procedure: lara catheter replaced in ED by RN today PD MEDICAL DECISION MAKING - ED course Complexity details: reviewed old records, reviewed results, re-evaluated patient, d/w patient Departure - Departure Disposition: 01 Home, Self Care Clinical Impression: UTI (urinary tract infection) due to urinary indwelling catheter Qualifiers: Indwelling urinary catheter type: indwelling urethral catheter Encounter type: initial encounter Qualified Code(s): T83.511A - Infection and inflammatory reaction due to indwelling urethral catheter, initial encounter; N39.0 - Urinary tract infection, site not specified Condition: Good Instructions: UTI Prescriptions: Cefdinir 300 mg PO BID #14 capsule Comments: Take the antibiotics as prescribed until gone. Make sure to drink plenty of clear fluids. Follow up with your primary care provider in 7-10 days, sooner if symptoms fail to start to improve.
[2019-09-03 22:07] VITALS: BP 130/82
[2019-09-03] MEDS ORDERED: cefTRIAXone 1 GM VIAL IM STA (22:08)
[2019-09-03] MEDS ORDERED: LIDOCAINE 1% 2 ML VIAL MC ONE (22:08)
== END 2019-09-03 22:39 | disposition home or self-care (01) ==
LOC: EDUNIT# → ED 20:16
DX: T83.511A Infection and inflammatory reaction due to indwelling urethral catheter, initial encounter (principal); I10 Essential (primary) hypertension; E11.9 Type 2 diabetes mellitus without complications; Z79.4 Long term (current) use of insulin
CPT/HCPCS: 51702; 81001; 81003; 87077; 87086; 87181; 99283; 99284

== ENCOUNTER 2019-09-03 22:36 | Outpatient (CLI) | payer MEDICARE, MEDICAID | END 2019-09-03 23:59 | disposition home or self-care (01) | LOC: EMS 22:36 | PROVIDERS: ATTEND Surgery | DX: F03.90 Unspecified dementia, unspecified severity, without behavioral disturbance, psychotic disturbance, mood disturbance, and anxiety (principal); R41.0 Disorientation, unspecified | CPT/HCPCS: A0425; A0428 ==

== ENCOUNTER 2019-09-08 11:17 | Emergency (ER) | payer MEDICARE, MEDICAID ==
[2019-09-08 12:34] LABS: ALBUMIN 3.7 g/dL (3.2-5.5); ALBUMIN/GLOBULIN RATIO 0.9 (1.0-2.2); BILIRUBIN,TOTAL 0.8 mg/dL (0.2-1.0); CALCIUM 9.2 mg/dL (8.5-10.3); CREATININE 1.1 mg/dL (0.6-1.2); TOTAL PROTEIN 7.6 g/dL (6.7-8.2)
[2019-09-08 12:40] LABS: BASOPHILS % (AUTO) 0.4 %; EOSINOPHILS % (AUTO) 0.3 %; HGB - HEMOGLOBIN 12.5 g/dL (14.0-18.0); LYMPHOCYTES # (AUTO) 1.3 10^3/uL (1.5-3.5); LYMPHOCYTES % (AUTO) 18.1 %; MEAN CORPUSCULAR HEMOGLOBIN 30.2 pg (27.0-31.0); MEAN CORPUSCULAR HGB CONC 33.2 g/dL (32.0-36.0); MEAN CORPUSCULAR VOLUME 91.1 fL (80.0-94.0); MEAN PLATELET VOLUME 11.3 fL (7.4-11.4); MONOCYTES # (AUTO) 0.5 10^3/uL (0.0-1.0); MONOCYTES % (AUTO) 7.7 %; NEUTROPHILS # (AUTO) 5.1 10^3/uL (1.5-6.6); NEUTROPHILS % (AUTO) 73.1 %; PLT - PLATELET COUNT 213 10^3/uL (130-450); RED BLOOD COUNT 4.14 10^6/uL (4.70-6.10); RED CELL DISTRIBUTION WIDTH 12.8 % (12.0-15.0)
[2019-09-08 13:05] LABS: BILIRUBIN,URINE NEGATIVE (NEGATIVE); CLARITY,URINE CLEAR (CLEAR); GLUCOSE, URINE (UA) NEGATIVE (NEGATIVE); KETONES,URINE (UA) NEGATIVE (NEGATIVE); LEUKOCYTE ESTERASE, URINE TRACE (NEGATIVE); NITRITE,URINE NEGATIVE (NEGATIVE); OCCULT BLOOD,URINE NEGATIVE (NEGATIVE); PH,URINE 5.5 PH (5.0-7.5); PROTEIN,URINE NEGATIVE (NEGATIVE); UROBILINOGEN,URINE 0.2 (NORMAL) E.U./dL (NORMAL)
[2019-09-08 13:17] LABS: BACTERIA,URINE Rare /HPF (None Seen); RBC,URINE None Seen /HPF (0-5); SQUAMOUS EPITHELIAL CELL,UR NONE SEEN (<= Few)
[2019-09-08 13:26] VITALS: BP 130/88
[2019-09-08 13:34] LABS: PLATELET ESTIMATE, MANUAL NORMAL (130-450,000) (NORMAL); PLATELET MORPHOLOGY NORMAL APPEARANCE (NORMAL); RBC MORPHOLOGY (MULTIPLE) NORMAL APPEARANCE (NORMAL)
--- NOTE | 2019-09-08 14:11 | ED Physician Documentation ---
History of Present Illness - Stated complaint Stated Complaint: CONFUSION - Chief complaint Chief Complaint: General - History obtained from History obtained from: Patient, EMS - History of Present Illness Timing: Today - Additonal information Additional information: 64-year-old male is a resident of [facility] and he has a roommate who is spitting on the floor and he asked the roommate not to spit on the floor and an argument ensued and some shelving occurred. The patient is brought to the hospital for evaluation and they are asking for a sedative as the patient seems to have increased behavioral issues since moving to [facility]. The patient states that his sister always welcome [place] and he feels that he should not have to have a roommate. Review of Systems Unable to obtain: Dementia Constitutional: denies: Fever Eyes: denies: Decreased vision Ears: denies: Ear pain Nose: denies: Congestion Throat: denies: Sore throat Respiratory: denies: Cough GI: denies: Vomiting PD PAST MEDICAL HISTORY - Past Medical History Cardiovascular: Hypertension, High cholesterol Respiratory: Pneumonia Neuro: Cerebral palsy, CVA, Other Endocrine/Autoimmune: Type 2 diabetes GI: None : Benign prostate hypertrophy, Retention, Chronic bladder infection, Renal insuffiency, Indwelling catheter Psych: Depression, Anxiety Musculoskeletal: Fatigue, Chronic back pain Derm: None - Past Surgical History Past Surgical History: Yes - Present Medications Home Medications: Ambulatory Orders Medication Instructions Recorded Confirmed Doxazosin [Cardura] 1 mg PO QPM #30 tablet 08/27/18 07/30/19 Tamsulosin [Flomax] 0.4 mg PO DAILY #30 capsule 08/27/18 07/30/19 Insulin Glargine,Hum.rec.anlog 24 unit SUBQ DAILY 03/06/19 07/30/19 [Basaglar Kwikpen U-100] Acetaminophen 650 mg PO Q4HR PRN 03/07/19 07/30/19 Aspirin 325 mg PO DAILY 03/07/19 07/30/19 Atorvastatin Calcium 80 mg PO DAILY 03/07/19 07/30/19 Clopidogrel [Plavix] 75 mg PO DAILY 03/07/19 07/30/19 Insulin Lispro 2 - 12 units SQ TID 03/07/19 07/30/19 Ondansetron HCl [Zofran] 8 mg PO Q6H PRN 03/07/19 07/30/19 Thiamine [Vitamin B-1] 100 mg PO DAILY 03/07/19 07/30/19 amLODIPine [Norvasc] 10 mg PO DAILY 03/07/19 07/30/19 Cefdinir 300 mg PO BID #14 capsule 09/03/19 Insulin Lispro [Insulin Lispro 7 units TID 09/03/19 09/03/19 Kwikpen U-100] Lisinopril [Zestril] 20 mg DAILY 09/03/19 09/03/19 LORazepam [Ativan] 1 mg PO Q6HR PRN #20 tablet 09/08/19 - Allergies Allergies/Adverse Reactions: Allergies Allergy/AdvReac Type Severity Reaction Status Date / Time No Known Drug Allergies Allergy Verified 09/03/19 20:36 - Social History Does the pt smoke?: No Smoking Status: Never smoker Does the pt drink ETOH?: No Does the pt have substance abuse?: Yes - Immunizations Immunizations are current?: Yes - POLST Patient has POLST: Yes POLST Status: Full Code PD ED PE NORMAL - Vitals Vital signs reviewed: Yes (hypertensive ) - General General: No acute distress, Well developed/nourished - HEENT HEENT: Atraumatic, PERRL, EOMI - Neck Neck: Supple, no meningeal sign - Cardiac Cardiac: RRR, No murmur - Respiratory Respiratory: No respiratory distress, Clear bilaterally - Abdomen Abdomen: Soft, Non tender - Back Back: No CVA TTP, No spinal TTP - Derm Derm: Normal color, Warm and dry, No rash - Extremities Extremities: No deformity, No edema - 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, No motor deficit, No sensory deficit, Normal speech Eye Opening: Spontaneous Motor: Obeys Commands Verbal: Confused GCS Score: 14 - Psych Psych: Normal mood, Normal affect Results - Vitals Vitals: Vital Signs - 24 hr 09/08/19 09/08/19 11:21 13:21 Temperature 36.8 C Heart Rate 92 66 Respiratory 16 20 Rate Blood Pressure 146/84 H 130/88 H O2 Saturation 98 98 Oxygen O2 Source [With Activity] Nasal cannula O2 Source Room air - Labs Labs: Laboratory Tests 09/08/19 09/08/19 09/08/19 12:12 12:12 12:55 WBC 7.0 RBC 4.14 L Hgb 12.5 L Hct 37.7 L MCV 91.1 MCH 30.2 MCHC 33.2 RDW 12.8 Plt Count 213 MPV 11.3 Neut # (Auto) 5.1 Lymph # (Auto) 1.3 L [place] # (Auto) 0.5 Eos # (Auto) 0.0 Baso # (Auto) 0.0 Absolute Nucleated RBC 0.00 Nucleated RBC % 0.0 WBC Morphology NORMAL APPEARANCE Platelet Estimate NORMAL (130-450,000) Platelet Morphology NORMAL APPEARANCE RBC Morph Micro Appear NORMAL APPEARANCE Sodium 134 L Potassium 3.9 Chloride 103 Carbon Dioxide 21 Anion Gap 10.0 BUN 33 H Creatinine 1.1 Estimated GFR (MDRD) 67 L Glucose 249 H Calcium 9.2 Total Bilirubin 0.8 AST 17 ALT 22 Alkaline Phosphatase 67 Total Protein 7.6 Albumin 3.7 Globulin 3.9 Albumin/Globulin Ratio 0.9 L Lipase 23 Urine Color YELLOW Urine Clarity CLEAR Urine pH 5.5 Ur Specific [place] 1.025 Urine Protein NEGATIVE Urine Glucose (UA) NEGATIVE Urine Ketones NEGATIVE Urine Occult Blood NEGATIVE Urine Nitrite NEGATIVE Urine Bilirubin NEGATIVE Urine Urobilinogen 0.2 (NORMAL) Ur Leukocyte Esterase TRACE H Urine RBC None Seen Urine WBC 4-5 Ur Squamous Epith Cells NONE SEEN Urine Bacteria Rare Ur Microscopic Review INDICATED Urine Culture Comments INDICATED PD MEDICAL DECISION MAKING - ED course Complexity details: reviewed old records, reviewed results, re-evaluated patient, considered differential, d/w patient, d/w family ED course: 64-year-old male with aggressive behavior this morning at home place has been having some time adjusting to his new living situation and he has become more aggressive. They have asked for us to provide a sedative to use on a as needed basis and we will write a prescription for some Ativan. I did not find anything on physical exam or laboratory evaluation to indicate a reason for increased aggressiveness. He does have a mildly increased blood glucose. He did not appear clinically dehydrated. He was cooperative and pleasant during his stay here and seemed to recall events. Departure - Departure Disposition: 01 Home, Self Care Clinical Impression: Dementia with aggressive behavior Condition: Stable Instructions: ED Dementia Caregiver Support Follow-Up: Calderon Hwang MD [Credentialed Staff Provider] - Prescriptions: LORazepam [Ativan] 1 mg PO Q6HR PRN #20 tablet PRN Reason: aggressive behavior
== END 2019-09-08 15:59 | disposition home or self-care (01) ==
LOC: EDUNIT# → ED 11:17
DX: F03.91 Unspecified dementia, unspecified severity, with behavioral disturbance (principal); G80.9 Cerebral palsy, unspecified; E11.9 Type 2 diabetes mellitus without complications; Z86.73 Personal history of transient ischemic attack (TIA), and cerebral infarction without residual deficits; N40.1 Benign prostatic hyperplasia with lower urinary tract symptoms; R33.9 Retention of urine, unspecified; I10 Essential (primary) hypertension
CPT/HCPCS: 36415; 80053; 81001; 81003; 83690; 85025; 87086; 99283

== ENCOUNTER 2019-09-08 13:59 | Outpatient (CLI) | payer MEDICARE, MEDICAID | END 2019-09-08 14:00 | disposition critical access hospital (66) | LOC: EMS 13:59 | PROVIDERS: ATTEND Surgery | DX: R41.0 Disorientation, unspecified (principal) | CPT/HCPCS: A0425; A0429 ==

== ENCOUNTER 2019-10-29 08:00 | Outpatient (CLI) | payer MEDICARE, MEDICAID ==
[2019-10-29 12:11] LABS: ALBUMIN 3.8 g/dL (3.2-5.5); ALKALINE PHOSPHATASE 79 IU/L (42-121); ALT ALANINE AMINOTRANSFERASE 19 IU/L (10-60); AST ASPARTATE AMINOTRANSFERASE 15 IU/L (10-42); BILIRUBIN,TOTAL 0.3 mg/dL (0.2-1.0); BUN - BLOOD UREA NITROGEN 41 mg/dL (6-20); CALCIUM 9.3 mg/dL (8.5-10.3); CARBON DIOXIDE - CO2 22 mmol/L (21-32); CHLORIDE 106 mmol/L (101-111); CHOL/HDL RATIO 2.7 (<5.0); CHOLESTEROL 112 mg/dL; CREATININE 1.3 mg/dL (0.6-1.2); GLUCOSE 292 mg/dL (70-100); HDL CHOLESTEROL 41 mg/dL; LDL CHOLESTEROL,CALCULATED 52 mg/dL; LDL/HDL RATIO 1.3 (<3.6); SODIUM 136 mmol/L (135-145); TOTAL PROTEIN 7.7 g/dL (6.7-8.2); VLDL CHOLESTEROL 19 mg/dL
[2019-10-29 12:16] LABS: HB2 TOTAL 12.6 g/dL; HEMOGLOBIN A1C 1.06 g/dL; HEMOGLOBIN A1C % 9.8 % (4.6-6.2)
== END 2019-10-29 23:59 | disposition home or self-care (01) ==
LOC: LAB.WCP 08:00
PROVIDERS: ATTEND Family Medicine
DX: E11.65 Type 2 diabetes mellitus with hyperglycemia (principal)
CPT/HCPCS: 36415; 80053; 80061; 83036; 83721

== ENCOUNTER 2019-11-29 17:24 | Outpatient (CLI) | payer MEDICARE, MEDICAID | END 2019-11-29 17:25 | disposition critical access hospital (66) | LOC: EMS 17:24 | PROVIDERS: ATTEND Surgery | DX: R11.2 Nausea with vomiting, unspecified (principal) | CPT/HCPCS: A0425; A0429 ==

== ENCOUNTER 2019-11-29 17:42 | Emergency (ER) | payer MEDICARE, MEDICAID ==
[2019-11-29 18:09] LABS: BASOPHILS # (AUTO) 0.1 10^3/uL (0.0-0.1); BASOPHILS % (AUTO) 0.4 %; HGB - HEMOGLOBIN 10.9 g/dL (14.0-18.0); LYMPHOCYTES # (AUTO) 1.8 10^3/uL (1.5-3.5); LYMPHOCYTES % (AUTO) 15.8 %; MEAN CORPUSCULAR HEMOGLOBIN 30.3 pg (27.0-31.0); MEAN CORPUSCULAR HGB CONC 32.6 g/dL (32.0-36.0); MEAN CORPUSCULAR VOLUME 92.8 fL (80.0-94.0); MEAN PLATELET VOLUME 10.5 fL (7.4-11.4); MONOCYTES # (AUTO) 0.7 10^3/uL (0.0-1.0); MONOCYTES % (AUTO) 5.9 %; NEUTROPHILS # (AUTO) 8.8 10^3/uL (1.5-6.6); NEUTROPHILS % (AUTO) 77.2 %; PLT - PLATELET COUNT 351 10^3/uL (130-450); RED CELL DISTRIBUTION WIDTH 12.5 % (12.0-15.0); WHITE BLOOD COUNT 11.4 x10^3/uL (4.8-10.8)
[2019-11-29 18:21] LABS: ALBUMIN 3.4 g/dL (3.2-5.5); ALBUMIN/GLOBULIN RATIO 0.8 (1.0-2.2); BILIRUBIN,TOTAL 0.6 mg/dL (0.2-1.0); CALCIUM 9.3 mg/dL (8.5-10.3); CREATININE 1.4 mg/dL (0.6-1.2); TOTAL PROTEIN 7.5 g/dL (6.7-8.2)
--- NOTE | 2019-11-29 18:24 | ED Physician Documentation ---
History of Present Illness - Stated complaint Stated Complaint: N/V - Chief complaint Chief Complaint: Abd Pain - History obtained from History obtained from: Patient, EMS - History of Present Illness Timing: Today Pain level max: 0 Pain level now: 0 - Additonal information Additional information: 64-year-old male lives at [facility]. History of CVA, hypertension, diabetes. Apparently has had intermittent vomiting for the past several weeks. He has a chronic indwelling Bryant catheter. Has dementia. No mental status changes. No diarrhea. The staff states that he had chest pain earlier today. Patient denies this. The staff at his living facility also states that his Bryant catheter has been leaking. They are requesting this be changed. Nothing makes any of his symptoms better or worse. Review of Systems Unable to obtain: Dementia PD PAST MEDICAL HISTORY - Past Medical History Past Medical History: Yes Cardiovascular: Hypertension, High cholesterol Respiratory: Pneumonia Neuro: Cerebral palsy, CVA, Other Endocrine/Autoimmune: Type 2 diabetes GI: None : Benign prostate hypertrophy, Retention, Chronic bladder infection, Renal insuffiency, Indwelling catheter Psych: Depression, Anxiety Musculoskeletal: Fatigue, Chronic back pain Derm: None - Past Surgical History Past Surgical History: Yes - Present Medications Home Medications: Ambulatory Orders Medication Instructions Recorded Confirmed Doxazosin [Cardura] 1 mg PO QPM #30 tablet 08/27/18 07/30/19 Tamsulosin [Flomax] 0.4 mg PO DAILY #30 capsule 08/27/18 07/30/19 Insulin Glargine,Hum.rec.anlog 24 unit SUBQ DAILY 03/06/19 07/30/19 [Antonellaaglvesta Thibodeaux U-100] Acetaminophen 650 mg PO Q4HR PRN 03/07/19 07/30/19 Aspirin 325 mg PO DAILY 03/07/19 07/30/19 Atorvastatin Calcium 80 mg PO DAILY 03/07/19 07/30/19 Clopidogrel [Plavix] 75 mg PO DAILY 03/07/19 07/30/19 Insulin Lispro 2 - 12 units SQ TID 03/07/19 07/30/19 Ondansetron HCl [Zofran] 8 mg PO Q6H PRN 03/07/19 07/30/19 Thiamine [Vitamin B-1] 100 mg PO DAILY 03/07/19 07/30/19 amLODIPine [Norvasc] 10 mg PO DAILY 03/07/19 07/30/19 Cefdinir 300 mg PO BID #14 capsule 09/03/19 Insulin Lispro [Insulin Lispro 7 units TID 09/03/19 09/03/19 Kwikpen U-100] Lisinopril [Zestril] 20 mg DAILY 09/03/19 09/03/19 LORazepam [Ativan] 1 mg PO Q6HR PRN #20 tablet 09/08/19 - Allergies Allergies/Adverse Reactions: Allergies Allergy/AdvReac Type Severity Reaction Status Date / Time No Known Drug Allergies Allergy Verified 11/29/19 18:08 - Social History Does the pt smoke?: No Smoking Status: Never smoker Does the pt drink ETOH?: No Does the pt have substance abuse?: Yes - Immunizations Immunizations are current?: Yes - POLST Patient has POLST: Yes POLST Status: Full Code PD ED PE NORMAL - Vitals Vital signs reviewed: Yes - General General: No acute distress, Well developed/nourished, Other (Pleasant, seems unsure of answers. Oriented to person and place) - HEENT HEENT: Atraumatic, PERRL, Moist mucous membranes, Pharynx benign - Neck Neck: Supple, no meningeal sign - Cardiac Cardiac: RRR, Strong equal pulses - Respiratory Respiratory: No respiratory distress, Clear bilaterally - Abdomen Abdomen: Soft, Non tender, Non distended - Derm Derm: Warm and dry - Extremities Extremities: No edema, No calf tenderness / cord - Neuro Neuro: No motor deficit, No sensory deficit - Psych Psych: Normal mood Results - Vitals Vitals: Vital Signs - 24 hr 11/29/19 11/29/19 11/29/19 17:42 18:27 18:47 Temperature 36.8 C Heart Rate 85 70 65 Respiratory 18 14 14 Rate Blood Pressure 136/80 H 110/66 127/79 O2 Saturation 96 98 97 11/29/19 20:12 Temperature Heart Rate 70 Respiratory Rate Blood Pressure 106/61 O2 Saturation 99 Oxygen O2 Source [] Nasal cannula O2 Source Room air - EKG (time done) 1807 Rate: Rate (enter#) (69) Rhythm: NSR [place]: Normal Intervals: Normal [place], Wide QRS (borderline) Ischemia: Normal ST segments - Labs Labs: Laboratory Tests 11/29/19 11/29/19 11/29/19 17:57 17:57 17:57 WBC 11.4 H RBC 3.60 L Hgb 10.9 L Hct 33.4 L MCV 92.8 MCH 30.3 MCHC 32.6 RDW 12.5 Plt Count 351 MPV 10.5 Neut # (Auto) 8.8 H Lymph # (Auto) 1.8 [place] # (Auto) 0.7 Eos # (Auto) 0.0 Baso # (Auto) 0.1 Absolute Nucleated RBC 0.00 Nucleated RBC % 0.0 Sodium 137 Potassium 4.6 Chloride 102 Carbon Dioxide 26 Anion Gap 9.0 BUN 35 H Creatinine 1.4 H Estimated GFR (MDRD) 51 L Glucose 218 H Calcium 9.3 Total Bilirubin 0.6 AST 15 ALT 21 Alkaline Phosphatase 67 Troponin I High Sens 11.5 Total Protein 7.5 Albumin 3.4 Globulin 4.1 Albumin/Globulin Ratio 0.8 L Lipase 66 H - Rads (name of study) cxr Radiology: Prelim report reviewed, EMP read contemporaneously, See rad report (No acute disease) CT abdomen pelvis Radiology: Prelim report reviewed, EMP read contemporaneously, See rad report (No acute abnormalities) PD MEDICAL DECISION MAKING - ED course Complexity details: reviewed results, re-evaluated patient, considered differential, d/w patient ED course: No evidence of acute coronary syndrome, PE, pneumothorax. Normal CT abdomen pelvis. No bowel obstruction. Bryant catheter changed. No fevers. Minimal leukocytosis, likely secondary to the vomiting earlier. We will hold off on treating for UTI as the catheter appears colonized. Patient is well-appearing, nontoxic. Afebrile. This document was made in part using voice recognition software. While efforts are made to proofread this document, sound alike and grammatical errors may occur. Departure - Departure Disposition: 01 Home, Self Care Clinical Impression: Chest pain Qualifiers: Chest pain type: unspecified Qualified Code(s): R07.9 - Chest pain, unspecified Condition: Good Instructions: ED Chest Pain Atypical Unkn Cause Follow-Up: Calderon Hwang MD [Primary Care Provider] - Within 1 week Comments: The cause of his symptoms is unclear. Return if he worsens.
[2019-11-29] MEDS ORDERED: LIDOCAINE 2% URO-JET 5 ML SYRINGE UR STA (18:27)
--- NOTE | 2019-11-29 18:31 | XRAY Report ---
PROCEDURE: Chest 1 View X-Ray INDICATIONS: Chest Pain TECHNIQUE: One view of the chest was acquired. COMPARISON: X-ray of the chest dated 09/21/2018. FINDINGS: Surgical changes and devices: Cervical fixation hardware is grossly intact. Lungs and pleura: No pleural effusions or pneumothorax. Lungs are clear. Mediastinum: Mediastinal contours appear normal. Heart size is mildly enlarged, as before. Bones and chest wall: No suspicious bony lesions. Overlying soft tissues appear unremarkable. IMPRESSION: Mild cardiomegaly. No acute pulmonary findings. Reviewed by: Chiara Mills MD on 11/29/2019 6:30 PM PDT Approved by: Chiara Mills MD on 11/29/2019 6:30 PM PDT Station ID: [id number]
[2019-11-29] MEDS ORDERED: IOVERSOL 320 100 ML VIAL IVP ONE ×2 (19:00→19:12)
--- NOTE | 2019-11-29 19:19 | CT Report ---
PROCEDURE: Abdomen/Pelvis W INDICATIONS: persistent vomiting, dementia CONTRAST: IV CONTRAST: Optiray 320 ml: 100 PO CONTRAST: *NO PO CONTRAST TECHNIQUE: After the administration of oral and intravenous contrast, 5 mm thick sections acquired from the diap hragms to the symphysis. 5 mm thick coronal and sagittal reformats were acquired. For radiation dos e reduction, the following was used: automated exposure control, adjustment of mA and/or kV accordin g to patient size. COMPARISON: None. FINDINGS: Image quality: Excellent. ABDOMEN: Lung bases: Lung bases are clear. Heart size is normal. Solid organs: Liver and spleen are normal in size and enhancement. Gallbladder is unremarkable Sloan iary system is non dilated. Pancreas enhances normally. No adrenal nodules. Kidneys demonstrate no rmal size and enhancement, without hydronephrosis. A low density cystic lesion is present at the upp er pole of the left kidney suggesting a simple renal cyst. Peritoneum and bowel: Bowel loops demonstrate normal wall thickness and caliber. The appendix is th in walled and gas-filled. No free fluid or air. Nodes and vessels: No retroperitoneal or mesenteric adenopathy by size criteria. Aorta and inferior vena cava are normal in size. Dense atheromatous calcifications are present throughout the abdomina l aorta and iliac arteries. Miscellaneous: No ventral hernias. PELVIS: Genitourinary: A Bryant catheter is present within the bladder. There is marked bladder wall thickenin g. These findings have increased in extent when compared with the CT dated 03/05/2019, but were likel y present on the prior study. Miscellaneous: No inguinal hernias or adenopathy. Bones: No suspicious bony lesions. No vertebral body compression fractures. IMPRESSION: 1. No acute intra-abdominal findings. Normal appendix. 2. Marked circumferential wall thickening of the bladder which is increased in extent when compared w ith the CT dated 03/05/2019. Reviewed by: Chiara Mills MD on 11/29/2019 7:18 PM PDT Approved by: Chiara Mills MD on 11/29/2019 7:18 PM PDT Station ID: [id number]
[2019-11-29 20:12] VITALS: BP 106/61
== END 2019-11-29 21:10 | disposition home or self-care (01) ==
LOC: EDUNIT# → ED 17:42
DX: R07.9 Chest pain, unspecified (principal); T83.031A Leakage of indwelling urethral catheter, initial encounter; F03.90 Unspecified dementia, unspecified severity, without behavioral disturbance, psychotic disturbance, mood disturbance, and anxiety; E11.9 Type 2 diabetes mellitus without complications; I10 Essential (primary) hypertension; Z79.4 Long term (current) use of insulin
CPT/HCPCS: 36415; 51702; 71045; 74177; 80053; 83690; 84484; 85025; 93005; 99284; 99285; Q9967

== ENCOUNTER 2019-12-16 09:33 | Outpatient (CLI) | payer MEDICARE, MEDICAID | END 2019-12-16 09:34 | disposition critical access hospital (66) | LOC: EMS 09:33 | PROVIDERS: ATTEND Surgery | DX: R10.9 Unspecified abdominal pain (principal) | CPT/HCPCS: A0425; A0429 ==

== ENCOUNTER 2019-12-16 09:51 | Emergency (ER) | payer MEDICARE, MEDICAID ==
--- NOTE | 2019-12-16 10:48 | ED Physician Documentation ---
History of Present Illness - Stated complaint Stated Complaint: ABD PX - Chief complaint Chief Complaint: Abd Pain - History obtained from History obtained from: Patient - History of Present Illness Timing: Today Pain level max: 5 Pain level now: 4 - Additonal information Additional information: 64-year-old male with a history of dementia presents to the emergency department with lower abdominal pain. He has a chronic indwelling Bryant catheter that has not been draining today. He was sent from [facility] for a catheter change and evaluation. He apparently has had vomiting for several months. Had a CT scan that did not show any acute abnormalities 2 weeks ago. Review of Systems Constitutional: denies: Fever, Chills Cardiac: denies: Chest pain / pressure Respiratory: denies: Cough GI: denies: Hematemesis, Bloody / black stool Skin: denies: Rash Musculoskeletal: denies: Neck pain, Back pain Neurologic: denies: Headache PD PAST MEDICAL HISTORY - Past Medical History Cardiovascular: Hypertension, High cholesterol Respiratory: Pneumonia Neuro: Cerebral palsy, CVA, Other Endocrine/Autoimmune: Type 2 diabetes GI: None : Benign prostate hypertrophy, Retention, Chronic bladder infection, Renal insuffiency, Indwelling catheter Psych: Depression, Anxiety Musculoskeletal: Fatigue, Chronic back pain Derm: None - Past Surgical History Past Surgical History: Yes - Present Medications Home Medications: Ambulatory Orders Medication Instructions Recorded Confirmed Doxazosin [Cardura] 1 mg PO QPM #30 tablet 08/27/18 12/16/19 Tamsulosin [Flomax] 0.4 mg PO DAILY #30 capsule 08/27/18 12/16/19 Insulin Glargine,Hum.rec.anlog 24 unit SUBQ DAILY 03/06/19 12/16/19 [Basaglar Kwikpen U-100] Acetaminophen 650 mg PO Q4HR PRN 03/07/19 12/16/19 Aspirin 325 mg PO DAILY 03/07/19 12/16/19 Atorvastatin Calcium 80 mg PO DAILY 03/07/19 12/16/19 Clopidogrel [Plavix] 75 mg PO DAILY 03/07/19 12/16/19 Insulin Lispro 2 - 12 units SQ TID 03/07/19 12/16/19 Ondansetron HCl [Zofran] 8 mg PO Q6H PRN 03/07/19 12/16/19 Thiamine [Vitamin B-1] 100 mg PO DAILY 03/07/19 12/16/19 amLODIPine [Norvasc] 10 mg PO DAILY 03/07/19 12/16/19 Insulin Lispro [Insulin Lispro 7 units TID 09/03/19 12/16/19 Kwikpen U-100] Lisinopril [Zestril] 20 mg DAILY 09/03/19 12/16/19 LORazepam [Ativan] 1 mg PO Q6HR PRN #20 tablet 09/08/19 12/16/19 Citalopram [CeleXA] 10 mg PO DAILY 12/16/19 12/16/19 Doxazosin [Cardura] 1 mg PO DAILY 12/16/19 12/16/19 - Allergies Allergies/Adverse Reactions: Allergies Allergy/AdvReac Type Severity Reaction Status Date / Time No Known Drug Allergies Allergy Verified 12/16/19 09:58 - Social History Does the pt smoke?: No Smoking Status: Never smoker Does the pt drink ETOH?: No Does the pt have substance abuse?: Yes - Immunizations Immunizations are current?: Yes - POLST Patient has POLST: Yes POLST Status: Full Code PD ED PE NORMAL - Vitals Vital signs reviewed: Yes - General General: No acute distress, Well developed/nourished, Other (Alert, to person and place, not to time) - HEENT HEENT: PERRL, Moist mucous membranes, Pharynx benign - Neck Neck: Supple, no meningeal sign - Cardiac Cardiac: RRR - Respiratory Respiratory: No respiratory distress, Clear bilaterally - Abdomen Abdomen: Soft, Non distended, Other (Tender to palpation in the lower abdomen with distention noted) - Back Back: No CVA TTP, No spinal TTP - Derm Derm: Warm and dry - Extremities Extremities: No edema - Neuro Neuro: No motor deficit, No sensory deficit - Psych Psych: Normal mood, Normal affect Results - Vitals Vitals: Vital Signs - 24 hr 12/16/19 12/16/19 12/16/19 09:58 11:19 12:58 Temperature 36.8 C Heart Rate 78 77 71 Respiratory 14 12 18 Rate Blood Pressure 126/77 112/74 O2 Saturation 96 92 Oxygen O2 Source [With Activity] Nasal cannula O2 Source Room air - Labs Labs: Laboratory Tests 12/16/19 12/16/19 12/16/19 11:08 11:30 11:30 WBC 10.0 RBC 3.38 L Hgb 10.1 L Hct 31.4 L MCV 92.9 MCH 29.9 MCHC 32.2 RDW 13.6 Plt Count 231 MPV 10.9 Neut # (Auto) 8.3 H Lymph # (Auto) 0.9 L [place] # (Auto) 0.8 Eos # (Auto) 0.0 Baso # (Auto) 0.0 Absolute Nucleated RBC 0.00 Nucleated RBC % 0.0 Sodium 135 Potassium 4.3 Chloride 100 L Carbon Dioxide 24 Anion Gap 11.0 BUN 64 H Creatinine 2.2 H Estimated GFR (MDRD) 30 L Glucose 211 H Calcium 9.5 Total Bilirubin 0.5 AST 16 ALT 17 Alkaline Phosphatase 61 Total Protein 7.3 Albumin 3.4 Globulin 3.9 Albumin/Globulin Ratio 0.9 L Lipase 23 Urine Color YELLOW Urine Clarity CLOUDY Urine pH 6.0 Ur Specific [place] 1.020 Urine Protein 30 H Urine Glucose (UA) NEGATIVE Urine Ketones NEGATIVE Urine Occult Blood LARGE H Urine Nitrite NEGATIVE Urine Bilirubin NEGATIVE Urine Urobilinogen 0.2 (NORMAL) Ur Leukocyte Esterase LARGE H Urine RBC 11-25 H Urine WBC >25 H Urine WBC Clumps PRESENT Ur Squamous Epith Cells RARE Squamous Urine Bacteria Few Ur Microscopic Review INDICATED Urine Culture Comments INDICATED PD MEDICAL DECISION MAKING - ED course Complexity details: reviewed old records, reviewed results, re-evaluated patient, considered differential, d/w patient ED course: Bladder distention with over 800 mL's in his bladder. His old Bryant catheter was removed and a new one placed. Urine drained freely. He does have mild acute renal insufficiency compared to his baseline, he does not want an IV. He is tolerating p.o. without difficulty here. We will have him recheck this with his doctor in a few days. Patient is well-appearing, nontoxic. Afebrile. Appears to have a colonized UA. No fever, altered mental status or leukocytosis. We will not treat the colonization at this time. Patient counseled regarding signs and symptoms for which I believe and urgent re- evaluation would be necessary. Patient with good understanding of and agreement to plan and is comfortable going home at this time This document was made in part using voice recognition software. While efforts are made to proofread this document, sound alike and grammatical errors may occur. Abdominal pain resolved after Bryant catheter placement Departure - Departure Disposition: Home, Self Care Clinical Impression: Acute renal insufficiency Obstruction of urinary catheter Qualifiers: Encounter type: initial encounter Qualified Code(s): T83.098A - Other mechanical complication of other urinary catheter, initial encounter Condition: Good Instructions: ED Catheter Care Bryant Follow-Up: Lee Ignacio DO [Primary Care Provider] - Within 3 Days Comments: He needs to have his creatinine rechecked with his doctor within 3 to 4 days. Return if he worsens. The catheter was changed today.
[2019-12-16 11:26] LABS: BILIRUBIN,URINE NEGATIVE (NEGATIVE); GLUCOSE, URINE (UA) NEGATIVE (NEGATIVE); KETONES,URINE (UA) NEGATIVE (NEGATIVE); LEUKOCYTE ESTERASE, URINE LARGE (NEGATIVE); NITRITE,URINE NEGATIVE (NEGATIVE); OCCULT BLOOD,URINE LARGE (NEGATIVE); PROTEIN,URINE 30 mg/dL (NEGATIVE); UROBILINOGEN,URINE 0.2 (NORMAL) E.U./dL (NORMAL)
[2019-12-16 11:28] LABS: CLARITY,URINE CLOUDY (CLEAR)
[2019-12-16 11:38] LABS: BASOPHILS % (AUTO) 0.2 %; HGB - HEMOGLOBIN 10.1 g/dL (14.0-18.0); LYMPHOCYTES # (AUTO) 0.9 10^3/uL (1.5-3.5); MEAN CORPUSCULAR HEMOGLOBIN 29.9 pg (27.0-31.0); MEAN CORPUSCULAR HGB CONC 32.2 g/dL (32.0-36.0); MEAN CORPUSCULAR VOLUME 92.9 fL (80.0-94.0); MEAN PLATELET VOLUME 10.9 fL (7.4-11.4); MONOCYTES # (AUTO) 0.8 10^3/uL (0.0-1.0); MONOCYTES % (AUTO) 7.5 %; NEUTROPHILS # (AUTO) 8.3 10^3/uL (1.5-6.6); NEUTROPHILS % (AUTO) 82.9 %; PLT - PLATELET COUNT 231 10^3/uL (130-450); RED BLOOD COUNT 3.38 10^6/uL (4.70-6.10); RED CELL DISTRIBUTION WIDTH 13.6 % (12.0-15.0)
[2019-12-16 11:40] LABS: BACTERIA,URINE Few /HPF (None Seen); SQUAMOUS EPITHELIAL CELL,UR RARE Squamous (<= Few); WBC CLUMPS,URINE PRESENT
[2019-12-16 11:56] LABS: ALBUMIN 3.4 g/dL (3.2-5.5); ALBUMIN/GLOBULIN RATIO 0.9 (1.0-2.2); BILIRUBIN,TOTAL 0.5 mg/dL (0.2-1.0); CALCIUM 9.5 mg/dL (8.5-10.3); CREATININE 2.2 mg/dL (0.6-1.2); TOTAL PROTEIN 7.3 g/dL (6.7-8.2)
[2019-12-16 16:36] VITALS: BP 120/80
== END 2019-12-16 16:55 | disposition home or self-care (01) ==
LOC: EDUNIT# → ED 09:51
DX: T83.091A Other mechanical complication of indwelling urethral catheter, initial encounter (principal); Y84.6 Urinary catheterization as the cause of abnormal reaction of the patient, or of later complication, without mention of misadventure at the time of the procedure; N28.9 Disorder of kidney and ureter, unspecified; G80.9 Cerebral palsy, unspecified; F03.90 Unspecified dementia, unspecified severity, without behavioral disturbance, psychotic disturbance, mood disturbance, and anxiety; I10 Essential (primary) hypertension; E11.9 Type 2 diabetes mellitus without complications; Z79.4 Long term (current) use of insulin; Z86.73 Personal history of transient ischemic attack (TIA), and cerebral infarction without residual deficits; Z79.02 Long term (current) use of antithrombotics/antiplatelets; Z79.82 Long term (current) use of aspirin
CPT/HCPCS: 36415; 51702; 80053; 81001; 81003; 83690; 85025; 87077; 87086; 87181; 99283; 99284

== ENCOUNTER 2020-03-06 06:51 | Outpatient (CLI) | payer MEDICARE, MEDICAID | END 2020-03-06 06:52 | disposition critical access hospital (66) | LOC: EMS 06:51 | PROVIDERS: ATTEND Surgery | DX: T83.031A Leakage of indwelling urethral catheter, initial encounter (principal) | CPT/HCPCS: A0425; A0429 ==

== ENCOUNTER 2020-03-06 07:08 | Emergency (ER) | payer MEDICARE, MEDICAID ==
--- NOTE | 2020-03-06 07:27 | ED Physician Documentation ---
PD HPI MALE - Stated complaint Stated Complaint: - Chief complaint Chief Complaint: General - History obtained from History obtained from: Patient, EMS, Caregiver ([facility]) - History of Present Illness Timing - onset: Today Timing - duration: Hours Timing - details: Abrupt onset Associated symptoms: Lara problem (he has ongoing lara and today the caregivers noted it to not be draining much and some urine/purulence coming around the lara tubing from the penis. No fevers, flank pain, vomiting, changed alertness.) PD HPI MALE CONTRIB FACTORS: Indwelling catheter Recently seen: Not recently seen Review of Systems Constitutional: denies: Fever Nose: denies: Rhinorrhea / runny nose, Congestion Respiratory: denies: Cough GI: reports: Abdominal Pain (feeling some cramps in lower abd/bladder area.). denies: Vomiting, Diarrhea : reports: Unable to Void Neurologic: reports: Generalized weakness. denies: Near syncope, Altered mental status PD PAST MEDICAL HISTORY - Past Medical History Cardiovascular: Hypertension, High cholesterol Respiratory: Pneumonia Neuro: Cerebral palsy, CVA, Other Endocrine/Autoimmune: Type 2 diabetes GI: None : Benign prostate hypertrophy, Retention, Chronic bladder infection, Renal insuffiency, Indwelling catheter Psych: Depression, Anxiety Musculoskeletal: Fatigue, Chronic back pain Derm: None - Past Surgical History Past Surgical History: Yes - Present Medications Home Medications: Ambulatory Orders Medication Instructions Recorded Confirmed Doxazosin [Cardura] 1 mg PO QPM #30 tablet 08/27/18 12/16/19 Tamsulosin [Flomax] 0.4 mg PO DAILY #30 capsule 08/27/18 12/16/19 Insulin Glargine,Hum.rec.anlog 24 unit SUBQ DAILY 03/06/19 12/16/19 [Basaglar Kwikpen U-100] Acetaminophen 650 mg PO Q4HR PRN 03/07/19 12/16/19 Aspirin 325 mg PO DAILY 03/07/19 12/16/19 Atorvastatin Calcium 80 mg PO DAILY 03/07/19 12/16/19 Clopidogrel [Plavix] 75 mg PO DAILY 03/07/19 12/16/19 Insulin Lispro 2 - 12 units SQ TID 03/07/19 12/16/19 Ondansetron HCl [Zofran] 8 mg PO Q6H PRN 03/07/19 12/16/19 Thiamine [Vitamin B-1] 100 mg PO DAILY 03/07/19 12/16/19 amLODIPine [Norvasc] 10 mg PO DAILY 03/07/19 12/16/19 Insulin Lispro [Insulin Lispro 7 units TID 09/03/19 12/16/19 Kwikpen U-100] Lisinopril [Zestril] 20 mg DAILY 09/03/19 12/16/19 LORazepam [Ativan] 1 mg PO Q6HR PRN #20 tablet 09/08/19 12/16/19 Citalopram [CeleXA] 10 mg PO DAILY 12/16/19 12/16/19 Doxazosin [Cardura] 1 mg PO DAILY 12/16/19 12/16/19 Cefdinir 300 mg PO BID #14 capsule 03/06/20 - Allergies Allergies/Adverse Reactions: Allergies Allergy/AdvReac Type Severity Reaction Status Date / Time No Known Drug Allergies Allergy Verified 12/16/19 09:58 - Social History Does the pt smoke?: No Smoking Status: Never smoker Does the pt drink ETOH?: No Does the pt have substance abuse?: Yes - Immunizations Immunizations are current?: Yes - POLST Patient has POLST: Yes POLST Status: Full Code PD ED PE NORMAL - Vitals Vital signs reviewed: Yes - General General: Alert and oriented X 3, No acute distress, Well developed/nourished - Cardiac Cardiac: RRR, No murmur - Respiratory Respiratory: Clear bilaterally - Abdomen Abdomen: Normal bowel sounds, Soft, Non distended, No organomegaly, Other (some fulllness and tenderness in suprapubic area. ) - Male Male : Other (lara in place. There is purulence from around the tubing coming at the meatus. No redness nor swelling of the glans. ) - Rectal Rectal: Deferred - Back Back: No CVA TTP - Derm Derm: Normal color, Warm and dry Results - Vitals Vitals: Vital Signs - 24 hr 03/06/20 03/06/20 03/06/20 07:14 08:31 09:37 Temperature 37.0 C 37.3 C Heart Rate 108 H 92 Respiratory 16 16 Rate Blood Pressure 141/87 H 104/73 O2 Saturation 99 96 03/06/20 11:00 Temperature Heart Rate 71 Respiratory 17 Rate Blood Pressure 116/77 O2 Saturation 94 Oxygen O2 Source [With Activity] Nasal cannula O2 Source Room air - Labs Labs: Microbiology 03/06/20 07:19 Wound Culture - Preliminary Skin - Penile Laboratory Tests 03/06/20 03/06/20 03/06/20 07:38 08:15 08:15 WBC 12.9 H RBC 4.08 L Hgb 11.9 L Hct 36.9 L MCV 90.4 MCH 29.2 MCHC 32.2 RDW 13.2 Plt Count 215 MPV 11.2 Neut # (Auto) 11.5 H Lymph # (Auto) 0.6 L [place] # (Auto) 0.6 Eos # (Auto) 0.0 Baso # (Auto) 0.0 Absolute Nucleated RBC 0.00 Nucleated RBC % 0.0 Sodium 139 Potassium 4.1 Chloride 104 Carbon Dioxide 20 L Anion Gap 15.0 H BUN 43 H Creatinine 2.1 H Estimated GFR (MDRD) 32 L Glucose 257 H Calcium 9.4 Urine Color DARK YELLOW Urine Clarity CLOUDY Urine pH 8.5 H Ur Specific [place] 1.020 Urine Protein >=300 H Urine Glucose (UA) NEGATIVE Urine Ketones NEGATIVE Urine Occult Blood LARGE H Urine Nitrite POSITIVE H Urine Bilirubin NEGATIVE Urine Urobilinogen 0.2 (NORMAL) Ur Leukocyte Esterase LARGE H Urine RBC TNTC H Urine WBC >25 H Ur Squamous Epith Cells NONE SEEN Urine Bacteria Moderate H Ur Microscopic Review INDICATED Urine Culture Comments INDICATED PD MEDICAL DECISION MAKING - ED course Complexity details: reviewed results, considered differential (seems blocked lara and when nursing changed it out, there was good drainage (some urine came out forcefully when initial lara removed). ), d/w patient ED course: He does have luis enrique purulence from around the lara tubing and so concern for infection. Culture obtained from meatus prior to removal of the initial lara. Departure - Departure Disposition: 01 Home, Self Care Clinical Impression: Blocked urinary catheter Qualifiers: Encounter type: initial encounter Qualified Code(s): T83.098A - Other mechanical complication of other urinary catheter, initial encounter UTI (urinary tract infection) Qualifiers: Urinary tract infection type: catheter-associated UTI Indwelling urinary catheter type: indwelling urethral catheter Encounter type: initial encounter Qualified Code(s): T83.511A - Infection and inflammatory reaction due to indwelling urethral catheter, initial encounter Condition: Stable Record reviewed to determine appropriate education?: Yes Follow-Up: Lee Ignacio DO [Primary Care Provider] - Prescriptions: Cefdinir 300 mg PO BID #14 capsule Comments: Your new catheter is draining adequately. Continue the prior catheter care. You do have likely an infection so we will treat with cefdinir twice daily for a week. We did do a urine culture and will modify antibiotics based on the results of that in about 3 days. Tylenol if needed for fevers or pains. Continue your other usual medicines. Discharge Date/Time: 03/06/20 11:22
[2020-03-06 08:12] LABS: BILIRUBIN,URINE NEGATIVE (NEGATIVE); GLUCOSE, URINE (UA) NEGATIVE (NEGATIVE); KETONES,URINE (UA) NEGATIVE (NEGATIVE); LEUKOCYTE ESTERASE, URINE LARGE (NEGATIVE); NITRITE,URINE POSITIVE (NEGATIVE); OCCULT BLOOD,URINE LARGE (NEGATIVE); PH,URINE 8.5 PH (5.0-7.5); PROTEIN,URINE >=300 mg/dL (NEGATIVE); UROBILINOGEN,URINE 0.2 (NORMAL) E.U./dL (NORMAL)
[2020-03-06 08:20] LABS: CLARITY,URINE CLOUDY (CLEAR)
[2020-03-06 08:21] LABS: BACTERIA,URINE Moderate /HPF (None Seen); RBC,URINE TNTC /HPF (0-5); SQUAMOUS EPITHELIAL CELL,UR NONE SEEN (<= Few)
[2020-03-06 08:24] LABS: BASOPHILS % (AUTO) 0.2 %; HGB - HEMOGLOBIN 11.9 g/dL (14.0-18.0); LYMPHOCYTES # (AUTO) 0.6 10^3/uL (1.5-3.5); LYMPHOCYTES % (AUTO) 4.9 %; MEAN CORPUSCULAR HEMOGLOBIN 29.2 pg (27.0-31.0); MEAN CORPUSCULAR HGB CONC 32.2 g/dL (32.0-36.0); MEAN CORPUSCULAR VOLUME 90.4 fL (80.0-94.0); MEAN PLATELET VOLUME 11.2 fL (7.4-11.4); MONOCYTES # (AUTO) 0.6 10^3/uL (0.0-1.0); NEUTROPHILS # (AUTO) 11.5 10^3/uL (1.5-6.6); NEUTROPHILS % (AUTO) 89.5 %; PLT - PLATELET COUNT 215 10^3/uL (130-450); RED BLOOD COUNT 4.08 10^6/uL (4.70-6.10); RED CELL DISTRIBUTION WIDTH 13.2 % (12.0-15.0); WHITE BLOOD COUNT 12.9 x10^3/uL (4.8-10.8)
[2020-03-06 08:32] LABS: CALCIUM 9.4 mg/dL (8.5-10.3); CREATININE 2.1 mg/dL (0.6-1.2)
[2020-03-06] MEDS ORDERED: LIDOCAINE 1% 2 ML VIAL MC ONE (09:24)
[2020-03-06] MEDS ORDERED: cefTRIAXone 1 GM VIAL IM STA (09:24)
[2020-03-06 11:01] VITALS: BP 116/77
== END 2020-03-06 11:22 | disposition home or self-care (01) ==
LOC: EDUNIT# → ED 07:08
DX: T83.511A Infection and inflammatory reaction due to indwelling urethral catheter, initial encounter (principal); T83.091A Other mechanical complication of indwelling urethral catheter, initial encounter; Y84.6 Urinary catheterization as the cause of abnormal reaction of the patient, or of later complication, without mention of misadventure at the time of the procedure; I10 Essential (primary) hypertension; E11.9 Type 2 diabetes mellitus without complications; Z79.4 Long term (current) use of insulin; N40.1 Benign prostatic hyperplasia with lower urinary tract symptoms; R33.8 Other retention of urine; Z79.82 Long term (current) use of aspirin
CPT/HCPCS: 36415; 51702; 80048; 81001; 81003; 85025; 87070; 87077; 87086; 87181; 87205; 99284

== ENCOUNTER 2020-04-04 04:12 | Outpatient (CLI) | payer MEDICARE, MEDICAID | END 2020-04-04 04:13 | disposition critical access hospital (66) | LOC: EMS 04:12 | PROVIDERS: ATTEND Surgery | DX: T85.618A Breakdown (mechanical) of other specified internal prosthetic devices, implants and grafts, initial encounter (principal) | CPT/HCPCS: A0425; A0429 ==

== ENCOUNTER 2020-04-04 04:29 | Emergency (ER) | payer MEDICARE, MEDICAID ==
[2020-04-04 06:01] LABS: BILIRUBIN,URINE NEGATIVE (NEGATIVE); GLUCOSE, URINE (UA) NEGATIVE (NEGATIVE); KETONES,URINE (UA) NEGATIVE (NEGATIVE); LEUKOCYTE ESTERASE, URINE LARGE (NEGATIVE); NITRITE,URINE POSITIVE (NEGATIVE); OCCULT BLOOD,URINE SMALL (NEGATIVE); PROTEIN,URINE 30 mg/dL (NEGATIVE); UROBILINOGEN,URINE 0.2 (NORMAL) E.U./dL (NORMAL)
[2020-04-04 06:02] LABS: CLARITY,URINE SL. CLOUDY (CLEAR)
[2020-04-04 06:08] LABS: BACTERIA,URINE Many /HPF (None Seen); RBC,URINE None Seen /HPF (0-5); SQUAMOUS EPITHELIAL CELL,UR NONE SEEN (<= Few)
--- NOTE | 2020-04-04 06:09 | ED Physician Documentation ---
PD HPI MALE - Stated complaint Stated Complaint: CLOGGED KNOX CATH - Chief complaint Chief Complaint: Abd Pain - History obtained from History obtained from: Patient - History of Present Illness Timing - onset: Yesterday Timing - duration: Days (2) Timing - details: Gradual onset, Still present Associated symptoms: Unable to urinate, Knox problem PD HPI MALE CONTRIB FACTORS: Indwelling catheter Similar symptoms before: Diagnosis (urinary retention) Recently seen: Not recently seen - Additional information Additional information: 65-year-old male resident of [facility] has a chronic indwelling Knox catheter and he believes it stopped producing urine yesterday sometime. He has now distention of the lower abdomen and pain. Review of Systems Constitutional: denies: Fever Eyes: denies: Decreased vision Ears: denies: Ear pain Nose: denies: Congestion Throat: denies: Sore throat Cardiac: denies: Chest pain / pressure Respiratory: denies: Dyspnea, Cough GI: reports: Abdominal Pain. denies: Nausea, Vomiting : reports: Knox Problem PD PAST MEDICAL HISTORY - Past Medical History Cardiovascular: Hypertension, High cholesterol Respiratory: Pneumonia Neuro: Dementia, Cerebral palsy, CVA, Other Endocrine/Autoimmune: Type 2 diabetes GI: None : Benign prostate hypertrophy, Retention, Chronic bladder infection, Renal insuffiency, Indwelling catheter HEENT: Chronic vision loss Psych: Depression, Anxiety Musculoskeletal: Fatigue, Chronic back pain Derm: None - Past Surgical History Past Surgical History: Yes - Present Medications Home Medications: Ambulatory Orders Medication Instructions Recorded Confirmed Doxazosin [Cardura] 1 mg PO QPM #30 tablet 08/27/18 04/04/20 Tamsulosin [Flomax] 0.4 mg PO DAILY #30 capsule 08/27/18 04/04/20 Insulin Glargine,Hum.rec.anlog 24 unit SUBQ DAILY 03/06/19 04/04/20 [Basaglar Kwikpen U-100] Acetaminophen 650 mg PO Q4HR PRN 03/07/19 04/04/20 Aspirin 325 mg PO DAILY 03/07/19 04/04/20 Atorvastatin Calcium 80 mg PO DAILY 03/07/19 04/04/20 Clopidogrel [Plavix] 75 mg PO DAILY 03/07/19 04/04/20 Insulin Lispro 2 - 12 units SQ TID 03/07/19 04/04/20 Ondansetron HCl [Zofran] 8 mg PO Q6H PRN 03/07/19 04/04/20 Thiamine [Vitamin B-1] 100 mg PO DAILY 03/07/19 04/04/20 amLODIPine [Norvasc] 10 mg PO DAILY 03/07/19 04/04/20 Lisinopril [Zestril] 20 mg DAILY 09/03/19 04/04/20 Citalopram [CeleXA] 20 mg PO DAILY 12/16/19 04/04/20 Cefdinir 300 mg PO BID #14 capsule 04/04/20 - Allergies Allergies/Adverse Reactions: Allergies Allergy/AdvReac Type Severity Reaction Status Date / Time No Known Drug Allergies Allergy Verified 12/16/19 09:58 - Social History Does the pt smoke?: No Smoking Status: Never smoker Does the pt drink ETOH?: No Does the pt have substance abuse?: Yes - Immunizations Immunizations are current?: Yes - POLST Patient has POLST: Yes POLST Status: Full Code PD ED PE NORMAL - Vitals Vital signs reviewed: Yes (Normal) - General General: No acute distress, Well developed/nourished - HEENT HEENT: Atraumatic, PERRL, EOMI - Respiratory Respiratory: No respiratory distress - Abdomen Abdomen: Normal bowel sounds, Soft, Other (Suprapubic distention and tenderness.) - Back Back: No CVA TTP, No spinal TTP - Derm Derm: Normal color, Warm and dry, No rash - Extremities Extremities: No deformity, No edema - 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 CLOUDY Urine pH 8.0 H Ur Specific [place] 1.020 Urine Protein 30 H Urine Glucose (UA) NEGATIVE Urine Ketones NEGATIVE Urine Occult Blood SMALL H Urine Nitrite POSITIVE H Urine Bilirubin NEGATIVE Urine Urobilinogen 0.2 (NORMAL) Ur Leukocyte Esterase LARGE H Urine RBC None Seen Urine WBC >25 H Ur Squamous Epith Cells NONE SEEN Urine Bacteria Many H Ur Microscopic Review INDICATED Urine Culture Comments INDICATED Procedures - Bedside sono Bedside sono by EMP: With use of bedside ultrasound the suprapubic area is imaged there is obvious full bladder with a Knox catheter in the bladder. PD MEDICAL DECISION MAKING - ED course Complexity details: reviewed old records, reviewed results, re-evaluated patient, considered differential, d/w patient ED course: 65-year-old male with chronic indwelling Knox catheter has stopped producing urine through the catheter and has urinary bladder distention. His Knox catheter is replaced. His urine looks infected and he is given an dose of levaquin. Departure - Departure Disposition: Home, Self Care Clinical Impression: UTI (urinary tract infection) due to urinary indwelling catheter Qualifiers: Indwelling urinary catheter type: indwelling urethral catheter Encounter type: initial encounter Qualified Code(s): T83.511A - Infection and inflammatory reaction due to indwelling urethral catheter, initial encounter; N39.0 - Urinary tract infection, site not specified Indwelling Knox catheter calcification Qualifiers: Encounter type: initial encounter Qualified Code(s): T83.89XA - Other specified complication of genitourinary prosthetic devices, implants and grafts, initial encounter Condition: Stable Instructions: ED UTI Cystitis Male Follow-Up: Lee Ignacio DO [Provider Admit Priv/Credential] - Prescriptions: Cefdinir 300 mg PO BID #14 capsule
[2020-04-04] MEDS ORDERED: levoFLOXacin 250 MG TABLET PO STA (06:57)
[2020-04-04] MEDS ORDERED: cefTRIAXone 1 GM VIAL IM STA (07:02)
[2020-04-04] MEDS ORDERED: LIDOCAINE 1% 2 ML VIAL MC ONE (07:02)
[2020-04-04 07:37] VITALS: BP 95/65
== END 2020-04-04 10:00 | disposition home or self-care (01) ==
LOC: EDUNIT# → ED 04:29
DX: T83.091A Other mechanical complication of indwelling urethral catheter, initial encounter (principal); T83.511A Infection and inflammatory reaction due to indwelling urethral catheter, initial encounter; N40.1 Benign prostatic hyperplasia with lower urinary tract symptoms; R33.8 Other retention of urine; E11.22 Type 2 diabetes mellitus with diabetic chronic kidney disease; I12.9 Hypertensive chronic kidney disease with stage 1 through stage 4 chronic kidney disease, or unspecified chronic kidney disease; N18.9 Chronic kidney disease, unspecified; Z79.4 Long term (current) use of insulin
CPT/HCPCS: 51702; 81001; 81003; 87077; 87086; 87181; 99283

== ENCOUNTER 2020-06-24 10:30 | Outpatient (CLI) | payer MEDICARE, MEDICAID ==
[2020-06-24 18:35] LABS: BILIRUBIN,URINE NEGATIVE (NEGATIVE); GLUCOSE, URINE (UA) NEGATIVE (NEGATIVE); KETONES,URINE (UA) NEGATIVE (NEGATIVE); LEUKOCYTE ESTERASE, URINE LARGE (NEGATIVE); NITRITE,URINE POSITIVE (NEGATIVE); OCCULT BLOOD,URINE LARGE (NEGATIVE); PROTEIN,URINE 30 mg/dL (NEGATIVE); UROBILINOGEN,URINE 0.2 (NORMAL) E.U./dL (NORMAL)
[2020-06-24 18:37] LABS: CLARITY,URINE SL. CLOUDY (CLEAR)
[2020-06-24 18:41] LABS: BACTERIA,URINE Few /HPF (None Seen); SQUAMOUS EPITHELIAL CELL,UR FEW Squamous (<= Few)
== END 2020-06-24 23:59 | disposition home or self-care (01) ==
LOC: LAB.R 10:30
PROVIDERS: ATTEND Internal Medicine
DX: N39.0 Urinary tract infection, site not specified (principal)
CPT/HCPCS: 81001; 81003; 87086

== ENCOUNTER 2020-10-27 08:00 | Outpatient (CLI) | payer MEDICARE, MEDICAID ==
[2020-10-27 18:13] LABS: BASOPHILS % (AUTO) 0.4 %; EOSINOPHILS % (AUTO) 0.1 %; HCT - HEMATOCRIT 36.2 % (42.0-52.0); HGB - HEMOGLOBIN 11.9 g/dL (14.0-18.0); LYMPHOCYTES # (AUTO) 1.5 10^3/uL (1.5-3.5); LYMPHOCYTES % (AUTO) 19.7 %; MEAN CORPUSCULAR HEMOGLOBIN 29.8 pg (27.0-31.0); MEAN CORPUSCULAR HGB CONC 32.9 g/dL (32.0-36.0); MEAN CORPUSCULAR VOLUME 90.5 fL (80.0-94.0); MEAN PLATELET VOLUME 11.3 fL (7.4-11.4); MONOCYTES # (AUTO) 0.7 10^3/uL (0.0-1.0); MONOCYTES % (AUTO) 9.6 %; NEUTROPHILS # (AUTO) 5.1 10^3/uL (1.5-6.6); NEUTROPHILS % (AUTO) 69.9 %; PLT - PLATELET COUNT 320 10^3/uL (130-450); RED CELL DISTRIBUTION WIDTH 13.2 % (12.0-15.0); WHITE BLOOD COUNT 7.4 x10^3/uL (4.8-10.8)
[2020-10-27 18:17] LABS: ALBUMIN 3.9 g/dL (3.2-5.5); ALBUMIN/GLOBULIN RATIO 0.9 (1.0-2.2); ALKALINE PHOSPHATASE 80 IU/L (42-121); ALT ALANINE AMINOTRANSFERASE 18 IU/L (10-60); AST ASPARTATE AMINOTRANSFERASE 17 IU/L (10-42); BILIRUBIN,TOTAL 0.7 mg/dL (0.2-1.0); BUN - BLOOD UREA NITROGEN 36 mg/dL (6-20); CALCIUM 9.5 mg/dL (8.5-10.3); CARBON DIOXIDE - CO2 22 mmol/L (21-32); CHLORIDE 103 mmol/L (101-111); CHOL/HDL RATIO 3.4 (<5.0); CHOLESTEROL 98 mg/dL; CREATININE 1.9 mg/dL (0.6-1.2); GFR - MDRD 36 (>89); GLUCOSE 251 mg/dL (70-100); HDL CHOLESTEROL 29 mg/dL; LDL CHOLESTEROL,CALCULATED 47 mg/dL; LDL/HDL RATIO 1.6 (<3.6); POTASSIUM 4.5 mmol/L (3.5-5.0); SODIUM 138 mmol/L (135-145); TOTAL PROTEIN 8.1 g/dL (6.7-8.2); TRIGLYCERIDES 108 mg/dL; VLDL CHOLESTEROL 22 mg/dL
[2020-10-27 20:21] LABS: ESTIMATED AVERAGE GLUCOSE 194 mg/dL (70-100); HEMOGLOBIN A1c% 8.4 % (4.27-6.07)
== END 2020-10-27 23:59 | disposition home or self-care (01) ==
LOC: LAB.WCP 08:00
PROVIDERS: ATTEND Family Medicine
DX: E11.65 Type 2 diabetes mellitus with hyperglycemia (principal)
CPT/HCPCS: 36415; 80053; 80061; 83036; 83721; 85025

== ENCOUNTER 2020-10-30 08:44 | Outpatient (CLI) | payer MEDICARE, MEDICAID | END 2020-10-30 08:45 | disposition critical access hospital (66) | LOC: EMS 08:44 | DX: S09.90XA Unspecified injury of head, initial encounter (principal); R53.81 Other malaise; W01.190A Fall on same level from slipping, tripping and stumbling with subsequent striking against furniture, initial encounter; Y93.9 Activity, unspecified; Y92.003 Bedroom of unspecified non-institutional (private) residence as the place of occurrence of the external cause | CPT/HCPCS: A0425; A0429 ==

== ENCOUNTER 2020-10-30 09:01 | Inpatient (IN) | payer MEDICARE, MEDICAID ==
--- NOTE | 2020-10-30 09:11 | ED Physician Documentation ---
PD HPI ABD PAIN - Stated complaint Stated Complaint: MALAISE - History obtained from History obtained from: Patient, EMS - Additional information Additional information: 65-year-old gentleman presents from [facility]. He has a history of type 2 diabetes, stroke, hypertension, BPH, urinary retention with Bryant in place, hyperlipidemia, dementia, coronary disease. He is an unreliable historian and states that he simply "feels like shit." He is unable to place a timeframe on how long he has felt like this. When asked if he is in pain he says yes, all over. He fell out of bed this morning without injury. He states he remembers it and says he just lost his balance. It was unwitnessed. Review of Systems Unable to obtain: Dementia PD PAST MEDICAL HISTORY - Past Medical History Cardiovascular: Hypertension, High cholesterol Respiratory: Pneumonia Neuro: Dementia, Cerebral palsy, CVA, Other Endocrine/Autoimmune: Type 2 diabetes GI: None : Benign prostate hypertrophy, Retention, Chronic bladder infection, Renal insuffiency, Indwelling catheter HEENT: Chronic vision loss Psych: Depression, Anxiety Musculoskeletal: Fatigue, Chronic back pain Derm: None - Past Surgical History Past Surgical History: Yes - Present Medications Home Medications: Ambulatory Orders Medication Instructions Recorded Confirmed Doxazosin [Cardura] 1 mg PO QPM #30 tablet 08/27/18 04/04/20 Tamsulosin [Flomax] 0.4 mg PO DAILY #30 capsule 08/27/18 04/04/20 Insulin Glargine,Hum.rec.anlog 24 unit SUBQ DAILY 03/06/19 04/04/20 [Basaglar Luisikpen U-100] Acetaminophen 650 mg PO Q4HR PRN 03/07/19 04/04/20 Aspirin 325 mg PO DAILY 03/07/19 04/04/20 Atorvastatin Calcium 80 mg PO DAILY 03/07/19 04/04/20 Clopidogrel [Plavix] 75 mg PO DAILY 03/07/19 04/04/20 Insulin Lispro 2 - 12 units SQ TID 03/07/19 04/04/20 Ondansetron HCl [Zofran] 8 mg PO Q6H PRN 03/07/19 04/04/20 Thiamine [Vitamin B-1] 100 mg PO DAILY 03/07/19 04/04/20 amLODIPine [Norvasc] 10 mg PO DAILY 03/07/19 04/04/20 Lisinopril [Zestril] 20 mg DAILY 09/03/19 04/04/20 Citalopram [CeleXA] 20 mg PO DAILY 12/16/19 04/04/20 Cefdinir 300 mg PO BID #14 capsule 04/04/20 Citalopram [CeleXA] 20 mg PO DAILY 10/30/20 10/30/20 Omeprazole [PriLOSEC] 1 tab PO Q8H PRN 10/30/20 10/30/20 - Allergies Allergies/Adverse Reactions: Allergies Allergy/AdvReac Type Severity Reaction Status Date / Time No Known Drug Allergies Allergy Verified 10/30/20 09:18 - Social History Does the pt smoke?: No Smoking Status: Never smoker Does the pt drink ETOH?: No Does the pt have substance abuse?: Yes - Immunizations Immunizations are current?: Yes - POLST Patient has POLST: Yes POLST Status: Full Code PD ED PE NORMAL - Vitals Vital signs reviewed: Yes - General General: Other (He is alert and oriented to person, when I ask him where he is he says [place], but cannot state that he is in a hospital. No clue as to the date.) - HEENT HEENT: PERRL, EOMI - Neck Neck: Supple, no meningeal sign, No bony TTP - Cardiac Cardiac: RRR, No murmur - Respiratory Respiratory: No respiratory distress, Clear bilaterally - Abdomen Abdomen: Normal bowel sounds, Soft, Other (He is tender in the right lower quadrant without guarding or rebound. Bryant catheter in place.) - Back Back: No CVA TTP, No spinal TTP - Neuro Eye Opening: Spontaneous Motor: Obeys Commands Verbal: Confused GCS Score: 14 Results - Vitals Vitals: Vital Signs - 24 hr 10/30/20 10/30/20 10/30/20 09:14 09:32 10:16 Temperature 39.2 C H Heart Rate 104 H 107 H 77 Respiratory 16 20 22 Rate Blood Pressure 131/81 H 129/87 H 126/84 H O2 Saturation 97 93 96 10/30/20 10/30/20 10/30/20 10:45 11:00 11:58 Temperature Heart Rate 96 96 97 Respiratory 23 20 18 Rate Blood Pressure 128/81 H 116/79 117/84 H O2 Saturation 93 93 96 10/30/20 11:59 Temperature Heart Rate 95 Respiratory 22 Rate Blood Pressure 117/84 H O2 Saturation 92 Oxygen O2 Source [With Activity] Nasal cannula O2 Source Room air - Labs Labs: Laboratory Tests 10/30/20 10/30/20 10/30/20 09:15 09:15 09:20 WBC 15.4 H RBC 4.08 L Hgb 12.3 L Hct 36.8 L MCV 90.2 MCH 30.1 MCHC 33.4 RDW 13.2 Plt Count 287 MPV 10.7 Neut # (Auto) 11.8 H Lymph # (Auto) 2.1 [place] # (Auto) 1.4 H Eos # (Auto) 0.0 Baso # (Auto) 0.1 Absolute Nucleated RBC 0.00 Nucleated RBC % 0.0 Sodium 137 Potassium 3.9 Chloride 105 Carbon Dioxide 20 L Anion Gap 12.0 BUN 35 H Creatinine 1.6 H Estimated GFR (MDRD) 43 L Glucose 163 H Lactic Acid 2.5 H Calcium 9.7 Magnesium 1.8 Total Bilirubin 1.0 AST 17 ALT 19 Alkaline Phosphatase 68 Total Protein 8.0 Albumin 3.9 Globulin 4.1 Albumin/Globulin Ratio 1.0 Lipase 18 L Urine Color Urine Clarity Urine pH Ur Specific [place] Urine Protein Urine Glucose (UA) Urine Ketones Urine Occult Blood Urine Nitrite Urine Bilirubin Urine Urobilinogen Ur Leukocyte Esterase Urine RBC Urine WBC Ur Squamous Epith Cells Urine Bacteria Urine Culture Comments Nasal Adenovirus (PCR) Nasal B. parapertussis DNA (PCR) Nasal Coronavir 229E PCR Nasal Coronavir HKU1 PCR Nasal Coronavir NL63 PCR Nasal Coronavir OC43 PCR Nasal Enterovir/Rhinovir PCR Nasal Influenza B PCR Nasal Influenza A PCR Nasal Parainfluen 1 PCR Nasal Parainfluen 2 PCR Nasal Parainfluen 3 PCR Nasal Parainfluen 4 PCR Nasal RSV (PCR) Nasal B.pertussis DNA PCR Nasal C.pneumoniae (PCR) Raz Human Metapneumo PCR Nasal M.pneumoniae (PCR) Nasal SARS-CoV-2 (PCR) 10/30/20 10/30/20 10/30/20 09:20 09:20 12:04 WBC RBC Hgb Hct MCV MCH MCHC RDW Plt Count MPV Neut # (Auto) Lymph # (Auto) [place] # (Auto) Eos # (Auto) Baso # (Auto) Absolute Nucleated RBC Nucleated RBC % Sodium Potassium Chloride Carbon Dioxide Anion Gap BUN Creatinine Estimated GFR (MDRD) Glucose Lactic Acid 1.0 Calcium Magnesium Total Bilirubin AST ALT Alkaline Phosphatase Total Protein Albumin Globulin Albumin/Globulin Ratio Lipase Urine Color DARK YELLOW Urine Clarity CLEAR Urine pH 5.5 Ur Specific [place] >=1.030 H Urine Protein TRACE Urine Glucose (UA) NEGATIVE Urine Ketones NEGATIVE Urine Occult Blood MODERATE H Urine Nitrite POSITIVE H Urine Bilirubin NEGATIVE Urine Urobilinogen 0.2 (NORMAL) Ur Leukocyte Esterase SMALL H Urine RBC 6-10 H Urine WBC 4-5 Ur Squamous Epith Cells FEW Squamous Urine Bacteria Few Urine Culture Comments INDICATED Nasal Adenovirus (PCR) NOT DETECTED Nasal B. parapertussis DNA (PCR) NOT DETECTED Nasal Coronavir 229E PCR NOT DETECTED Nasal Coronavir HKU1 PCR NOT DETECTED Nasal Coronavir NL63 PCR NOT DETECTED Nasal Coronavir OC43 PCR NOT DETECTED Nasal Enterovir/Rhinovir PCR NOT DETECTED Nasal Influenza B PCR NOT DETECTED Nasal Influenza A PCR NOT DETECTED Nasal Parainfluen 1 PCR NOT DETECTED Nasal Parainfluen 2 PCR NOT DETECTED Nasal Parainfluen 3 PCR NOT DETECTED Nasal Parainfluen 4 PCR NOT DETECTED Nasal RSV (PCR) NOT DETECTED Nasal B.pertussis DNA PCR NOT DETECTED Nasal C.pneumoniae (PCR) NOT DETECTED Raz Human Metapneumo PCR NOT DETECTED Nasal M.pneumoniae (PCR) NOT DETECTED Nasal SARS-CoV-2 (PCR) NOT DETECTED PD MEDICAL DECISION MAKING - ED course ED course: 65-year-old gentleman with chronic indwelling Bryant presents from [facility] with vague complaints but found to be febrile with some lower abdominal tenderness. Work-up demonstrates pyuria which could be his source, elevated white count. No evidence of pneumonia. Viral panel negative. Previous urine culture reviewed and Zosyn was chosen based on prior sensitivities. Spoke with Dr. Joseph for admission at 11:28 AM. - Sepsis Event Sepsis Onset Date: 10/30/20 Sepsis Onset Time: 09:45 Current Stage of Sepsis: Sepsis Initial Hypotension: Not hypotensive Possible source of Sepsis: Genitourinary Mental/Cognitive Status: Confused Reason for not giving 30ml/kg crystalloid fluids: Not in septic shock Capillary refill: Less than 2 seconds Peripheral Pulse Strength: 3+ Normal Peripheral Pulse Location: Radial Departure - Departure Disposition: 66 [facility] DC/Xfer Clinical Impression: Recurrent UTI Multi-infarct dementia Qualifiers: Dementia behavioral disturbance: without behavioral disturbance Qualified Code(s): F01.50 - Vascular dementia without behavioral disturbance Sepsis Qualifiers: Sepsis type: sepsis due to unspecified organism Sepsis acute organ dysfunction status: without acute organ dysfunction Qualified Code(s): A41.9 - Sepsis, unspecified organism Condition: Serious
[2020-10-30] MEDS ORDERED: IOVERSOL 320 100 ML VIAL IVP ONE ×2 (09:16→11:32)
[2020-10-30 09:27] LABS: BASOPHILS # (AUTO) 0.1 10^3/uL (0.0-0.1); BASOPHILS % (AUTO) 0.3 %; HCT - HEMATOCRIT 36.8 % (42.0-52.0); HGB - HEMOGLOBIN 12.3 g/dL (14.0-18.0); LYMPHOCYTES # (AUTO) 2.1 10^3/uL (1.5-3.5); LYMPHOCYTES % (AUTO) 13.6 %; MEAN CORPUSCULAR HEMOGLOBIN 30.1 pg (27.0-31.0); MEAN CORPUSCULAR HGB CONC 33.4 g/dL (32.0-36.0); MEAN CORPUSCULAR VOLUME 90.2 fL (80.0-94.0); MEAN PLATELET VOLUME 10.7 fL (7.4-11.4); MONOCYTES # (AUTO) 1.4 10^3/uL (0.0-1.0); MONOCYTES % (AUTO) 9.1 %; NEUTROPHILS # (AUTO) 11.8 10^3/uL (1.5-6.6); NEUTROPHILS % (AUTO) 76.6 %; PLT - PLATELET COUNT 287 10^3/uL (130-450); RED BLOOD COUNT 4.08 10^6/uL (4.70-6.10); RED CELL DISTRIBUTION WIDTH 13.2 % (12.0-15.0); WHITE BLOOD COUNT 15.4 x10^3/uL (4.8-10.8)
--- OUTSIDE RECORDS SUMMARY | 2020-10-30 09:34 | EXTERNAL MEDICAL SUMMARY RPT | Continuity of Care Document ---
:1955 Demographics Phone Unavailable Preferred Language Unknown Marital Status Unknown [employer] Affiliation Unknown Race Unknown Ethnic Group Unknown Author Organization [facility] Address [address] [place] [address] Phone Allergies Encounters Medications Problems Results
[2020-10-30 09:39] LABS: LACTIC ACID, VENOUS 2.5 mmol/L (0.5-2.2)
[2020-10-30 09:41] LABS: BILIRUBIN,URINE NEGATIVE (NEGATIVE); CLARITY,URINE CLEAR (CLEAR); GLUCOSE, URINE (UA) NEGATIVE (NEGATIVE); KETONES,URINE (UA) NEGATIVE (NEGATIVE); LEUKOCYTE ESTERASE, URINE SMALL (NEGATIVE); NITRITE,URINE POSITIVE (NEGATIVE); OCCULT BLOOD,URINE MODERATE (NEGATIVE); PH,URINE 5.5 PH (5.0-7.5); PROTEIN,URINE TRACE mg/dL (NEGATIVE); UROBILINOGEN,URINE 0.2 (NORMAL) E.U./dL (NORMAL)
[2020-10-30 09:44] LABS: SQUAMOUS EPITHELIAL CELL,UR FEW Squamous (<= Few)
[2020-10-30 09:45] LABS: BACTERIA,URINE Few /HPF (None Seen)
[2020-10-30 09:46] LABS: ALBUMIN 3.9 g/dL (3.2-5.5); CALCIUM 9.7 mg/dL (8.5-10.3); CREATININE 1.6 mg/dL (0.6-1.2); MAGNESIUM 1.8 mg/dL (1.7-2.8); POTASSIUM 3.9 mmol/L (3.5-5.0)
[2020-10-30] MEDS ORDERED: PIPERACILLIN/TAZOBACTAM 3.375 GM in SODIUM CHLORIDE 0.9% MINIBAG 100 ML IV STA (09:52)
--- NOTE | 2020-10-30 10:08 | XRAY Report ---
PROCEDURE: Chest 1 View X-Ray INDICATIONS: fever TECHNIQUE: One view of the chest was acquired. COMPARISON: 11/29/2019 FINDINGS: Surgical changes and devices: None. Lungs and pleura: No pleural effusions or pneumothorax. There is mild pulmonary edema and pulmonary vascular congestion. Mediastinum: Mediastinal contours appear normal. Heart size is enlarged. Bones and chest wall: No suspicious bony lesions. Overlying soft tissues appear unremarkable. IMPRESSION: Cardiomegaly and mild congestion. Suggestion of mild pulmonary edema. Underlying interstitial pulmona ry infiltrates cannot be excluded. Clinical correlation and follow-up is recommended. No pleural effu rashmi or pneumothorax. Reviewed by: Yoseph Dorsey MD on 10/30/2020 9:35 AM PDT Approved by: Yoseph Dorsey MD on 10/30/2020 9:35 AM PDT Station ID: [id number]
[2020-10-30 10:28] LABS: CORONAVIRUS 229E-RESP PCR NOT DETECTED; CORONAVIRUS HKU1-RESP PCR NOT DETECTED; CORONAVIRUS NL63-RESP PCR NOT DETECTED; CORONAVIRUS OC43-RESP PCR NOT DETECTED; HUMAN METAPNEUMOVIRUS NOT DETECTED; INFLUENZA A- RESP PCR PANEL NOT DETECTED; RHINOVIRUS/ENTEROVIRUS NOT DETECTED; SARS-CoV-2 -RESP PCR PANEL NOT DETECTED
[2020-10-30 10:29] LABS: B. PARAPERTUSSIS- RESP PCR PAN NOT DETECTED; B. PERTUSSIS- RESP PCR PANEL NOT DETECTED; C. PNEUMONIAE- RESP PCR PANEL NOT DETECTED; INFLUENZA B - RESP PCR PANEL NOT DETECTED; M. PNEUMONIAE- RESP PCR PANEL NOT DETECTED; PARAINFLUENZA VIRUS 1 NOT DETECTED; PARAINFLUENZA VIRUS 2 NOT DETECTED; PARAINFLUENZA VIRUS 3 NOT DETECTED; PARAINFLUENZA VIRUS 4 NOT DETECTED; RSV- RESP PCR PANEL NOT DETECTED
--- NOTE | 2020-10-30 11:20 | CT Report ---
PROCEDURE: Abdomen/Pelvis W INDICATIONS: RLQ pain, IV only CONTRAST: IV CONTRAST: Optiray 320 ml: 100 PO CONTRAST: *NO PO CONTRAST TECHNIQUE: After the administration of IV contrast, 5 mm thick sections acquired from the diaphragms to the symp hysis. 5 mm thick coronal and sagittal reformats were acquired. For radiation dose reduction, the f ollowing was used: automated exposure control, adjustment of mA and/or kV according to patient size. COMPARISON: None. FINDINGS: Image quality: Excellent. ABDOMEN: Lung bases: Small left pleural effusion is seen, with adjacent left basilar dependent atelectasis. Mi ld right basilar dependent atelectasis is also seen. Heart size is enlarged, no pericardial effusion. Solid organs: Liver and spleen are normal in size and enhancement. Gallbladder is within normal geller its. Biliary system is non dilated. Pancreas enhances normally. No adrenal nodules. Kidneys demon strate normal size and enhancement, without hydronephrosis. Left renal cyst is seen measures 2.4 cm in size in the upper pole of left kidney. Peritoneum and bowel: Bowel loops demonstrate normal wall thickness and caliber. No free fluid or a ir. Retrocecal appendix is visualized and is normal in size and appearance. Mild fecal stasis throug hout the colon is seen. Mild colonic diverticulosis is seen, no CT evidence of acute diverticulitis. No abscess collection. There is a small hiatal hernia. Nodes and vessels: No retroperitoneal or mesenteric adenopathy by size criteria. Aorta and inferior vena cava are normal in size. Moderate atherosclerotic calcifications throughout abdominal aorta is noted. Miscellaneous: No ventral hernias. PELVIS: Genitourinary: Bryant catheter is seen in a decompressed urinary bladder. There is suggestion of bladd er wall thickening. Miscellaneous: No inguinal hernias or adenopathy. Bones: No suspicious bony lesions. No vertebral body compression fractures. IMPRESSION: 1. Normal appendix. No bowel obstruction. No free fluid or free air. Colonic diverticulosis without e vidence of acute diverticulitis. No abscess collection. 2. Bryant catheter in a decompressed urinary bladder. No renal stone or hydronephrosis. Left renal cys t as above. 3. Small left pleural effusion and bibasilar atelectasis/small infiltrates. Cardiomegaly, no pericard ial effusion. Reviewed by: Yoseph Dorsey MD on 10/30/2020 11:19 AM PDT Approved by: Yoseph Dorsey MD on 10/30/2020 11:19 AM PDT Station ID: [id number]
[2020-10-30] MEDS ORDERED: ONDANSETRON 4 MG/2 ML VIAL IVP PRN (11:30)
[2020-10-30] MEDS ORDERED: SODIUM CHLORIDE FLUSH 0.9% 10 ML SYRINGE IVP PRN (11:30)
[2020-10-30] MEDS ORDERED: ACETAMINOPHEN 325 MG TABLET PO PRN (11:30)
[2020-10-30] MEDS ORDERED: MORPHINE 2 MG/ML CARPUJECT IVP STA (11:31)
[2020-10-30] MEDS ORDERED: LACTATED RINGERS 1,000 ML IV SCH ×2 (12:00→14:39)
--- NOTE | 2020-10-30 12:01 | HISTORY & PHYSICAL EXAMINATION ---
Chief Complaint - Chief Complaint Chief Complaint: abdominal pain History of Present Illness - Admitted From Admitted From:: ER - History Obtained From Records Reviewed: [employer] History obtained from: pt and meditech Exam Limitations: dementia and poor historian - History of Present Illness HPI Comment/Other: This is a 65-year-old male with a PMH Significantly for frequent UTI with chronic indwelling Bryant catheter, the left basal ganglia infarct and right cerebellar infarct, dementia, poor controlled type 2 diabetes mellitus, CKD, hypertension, hyperlipidemia, coronary artery disease with an NM on 03/06, hemorrhagic colitis, multiple strokes in 2012, 2016 and recently admitted on 07/10 to [facility] for dysarthria/cerebellar ataxia, Polysubstance with Methamphetamine abuse, who present ER complain of abdominal pain. pt is living at [facility]. pt is poor historian. His simple answer to questions is " I do not know." He was report to fell out of bed this morning without injury. It was unwitnessed also. he was reported to complain of abdominal pain in ER. Chest x-ray show cardiomegaly and mild congestion. CT of the abdomen and pelvis show Unremarkable Except small left pleural effusion and bibasilar atelectasis or small infiltrate. Routine laboratory tests that show WBC is 15, creatinine 1. 6, lactic acid 2.5. Urinalysis show pyuria urine indicating infection. Given above medical conditions, medical team was consulted for admission. Discussed care goal with patient, patient insisted he is DNR. Patient had a POLST, which show patient is DNR and focus on comfortable care. History - Past Medical History Cardiovascular: reports: Hypertension, High cholesterol Respiratory: reports: Pneumonia Neuro: reports: Dementia, Cerebral palsy, CVA, Other Endocrine/Autoimmune: reports: Type 2 diabetes GI: reports: None : reports: Benign prostate hypertrophy, Retention, Chronic bladder infection, Renal insuffiency, Indwelling catheter HEENT: reports: Chronic vision loss Psych: reports: Depression, Anxiety Musculoskeletal: reports: Fatigue, Chronic back pain Derm: reports: None MRSA Hx?: No - Family & Social History Family History: Mother: , Father: , Sister: Alive and Well (has son and daughter in [place]; but estranged), Brother: , Other family: Alive and Well Social History Notes: He currently resides at [facility]. He has history of methamphetamine abuse. About twice a week for 10 years accordig to old records. He is a nonsmoker and uses no alcohol. - POLST Patient has POLST: Yes POLST Status: Full Code Meds/Allgy - Home Medications Home Medications: Ambulatory Orders Medication Instructions Recorded Confirmed Doxazosin [Cardura] 1 mg PO QPM #30 tablet 08/27/18 10/30/20 Tamsulosin [Flomax] 0.4 mg PO DAILY #30 capsule 08/27/18 10/30/20 Insulin Glargine,Hum.rec.anlog 24 unit SUBQ DAILY 03/06/19 10/30/20 [Basaglar Kwikpen U-100] Acetaminophen 650 mg PO Q4HR PRN 03/07/19 10/30/20 Aspirin 325 mg PO DAILY 03/07/19 10/30/20 Atorvastatin Calcium 80 mg PO QPM 03/07/19 10/30/20 Clopidogrel [Plavix] 75 mg PO DAILY 03/07/19 10/30/20 Ondansetron HCl [Zofran] 8 mg PO Q8H PRN 03/07/19 10/30/20 Thiamine [Vitamin B-1] 100 mg PO DAILY 03/07/19 10/30/20 amLODIPine [Norvasc] 10 mg PO DAILY 03/07/19 10/30/20 Lisinopril [Zestril] 20 mg DAILY 09/03/19 10/30/20 Citalopram [CeleXA] 20 mg PO DAILY 12/16/19 10/30/20 Calcium Carbonate [Tums (Calcium 500 - 1,000 mg PO Q2H 10/30/20 10/30/20 Carbonate 500mg)] Insulin Aspart [NovoLOG] 2 - 12 unit SUBQ TIDWM 10/30/20 10/30/20 Insulin Aspart [NovoLOG] 7 unit SUBQ TIDWM 10/30/20 10/30/20 Omeprazole [PriLOSEC] 20 mg PO DAILY 10/30/20 10/30/20 - Allergies Allergies/Adverse Reactions: Allergies Allergy/AdvReac Type Severity Reaction Status Date / Time No Known Drug Allergies Allergy Verified 10/30/20 09:18 Review of Systems - Constitutional Constitutional: denies: Fever, Chills - Eyes Eyes: denies: Pain, Field loss, Vision loss - Ears, Nose & Throat Ears, Nose & Throat: denies: Ear pain, Nosebleeds - Cardiovascular Cariovascular: denies: Chest pain, Syncope, Exertional dyspnea, Decr. exercise tolerance - Respiratory Respiratory: denies: Cough, Wheezing, SOB at rest, SOB with exertion - Gastrointestinal Gastrointestinal: reports: Abdominal pain. denies: Diarrhea, Nausea, Vomiting - Genitourinary Genitourinary: denies: Dysuria, Urgency - Musculoskeletal Musculoskeletal: denies: Muscle pain, Limited range of motion - Integumentary Integumentary: denies: Rash, Pruritis - Neurological Neurological: denies: General weakness, Focal weakness, Headache, Dizziness, Numbness, Seizures, Incoordination, Slurred speech - Psychiatric Psychiatric: denies: Depression, Anxiety - Endocrine Endocrine: denies: Polyuria - Hematologic/Lymphatic Hematologic/Lymphatic: reports: Recurrent infections. denies: Petechiae Exam - Vital Signs Vital Signs: Vital Signs x48h Temp Pulse Resp BP Pulse Ox 10/30/20 11:59 95 22 117/84 H 92 10/30/20 11:58 97 18 117/84 H 96 10/30/20 10:16 77 22 126/84 H 96 10/30/20 09:32 107 H 20 129/87 H 93 10/30/20 09:14 39.2 C H 104 H 16 131/81 H 97 - Physical Exam General Appearance: positive: No acute distress, Alert. negative: Lethargic Eyes Bilateral: positive: Normal inspection, PERRL, No lid inflammation ENT: positive: ENT inspection nml, No signs of dehydration. negative: Purulent nasal drainage Neck: positive: Nml inspection, Trachea midline. negative: Thyromegaly, Tracheal deviation Respiratory: positive: Chest non-tender, No respiratory distress. negative: Wheezes Cardiovascular: positive: Regular rate & rhythm, No murmur. negative: Tachycardia, Bradycardia, Diastolic murmur Peripheral Pulses: positive: 2+ Abdomen: positive: Non-tender, Nml bowel sounds, No distention. negative: Tenderness Back: positive: Nml inspection Skin: positive: Color nml, Warm, Dry. negative: Cyanosis Extremities: positive: Non-tender, Nml appearance. negative: Calf tenderness Neurologic/Psychiatric: positive: Sensation nml. negative: Weakness, Sensory loss, Facial droop, Slurred/abnml speech, Depressed mood/affect Sepsis Event Note (H) - Evaluation Current Stage of Sepsis: Sepsis Possible source of Sepsis: positive: Genitourinary - Sepsis Criteria Sepsis Criteria: Recorded Temperature greater than 38.3C or Less than 36C, Recorded Heart Rate greater than 90 bpm, WBC count greater than 10% bands, WBC count greater than 12,000 or less than 4000 Conclusion/Plan - Problem List (1) Sepsis Conclusion/Plan: Patient present fever, elevated WBC, elevated lactic acid, likely From patient's recurrently urinary tract infection. Patient had chronic indwelling Bryant catheter. Patient had a history multi-organ resistance bacteria urinary tract infection. Urine culture is pending, blood culture is pending. We will start with meropenem, vancomycin for patient, will adjust antibiotics according to his UA and blood culture and sensitivity study. Qualifiers: Sepsis type: sepsis due to unspecified organism Sepsis acute organ dysfunct ion status: without acute organ dysfunction Qualified Code(s): A41.9 - Sepsis, unspecified organism (2) Recurrent UTI Conclusion/Plan: Patient had multiple recurrent UTI, patient had chronic indwelling Bryant catheter. we will continue treat with antibiotics, followup with UA and blood culture. (3) Indwelling Bryant catheter present Conclusion/Plan: pt present indwelling Bryant catheter, we will continue catheter care, resume pt's home meds and continue support pt. (4) Diabetes mellitus Conclusion/Plan: We will start with sliding scale, with Lantus and Novolog, Check A1c, start with hypoglycemia protocol (5) CKD (chronic kidney disease) stage 3, GFR 30-59 ml/min Conclusion/Plan: stable, Patient creatinine is 1.6 on today. keep pt hydration, lab monitor, hold nephrotoxical agent (6) Hx TIA/stroke w/o resid Conclusion/Plan: stable, pt denies new focal neurological deficits. Patient has a history of stroke, we will resume home, Aspirin, Plavix, statin - Lab Results Fish Bones: 10/30/20 09:15 10/30/20 09:15 Core Measures - Anticipated LOS I expect patient to be DC'd or transferred within 96 hours.: Yes - DVT/VTE - Prophylaxis VTE/DVT Device ordered at admit?: Yes VTE/DVT Prophylaxis med ordered at admit?: Yes
[2020-10-30 12:38] LABS: ESTIMATED AVERAGE GLUCOSE 197 mg/dL (70-100); HEMOGLOBIN A1c% 8.5 % (4.27-6.07)
--- OUTSIDE RECORDS SUMMARY | 2020-10-30 13:05 | EXTERNAL MEDICAL SUMMARY RPT | Continuity of Care Document ---
:1955 Demographics Phone Unavailable Preferred Language Unknown Marital Status Unknown Yazidism Affiliation Unknown Race Unknown Ethnic Group Unknown Author Organization [facility] Address [address] [place] [address] Phone Allergies Encounters Medications Problems Results
--- NOTE | 2020-10-30 13:23 | PHARMACY PROGRESS NOTE ---
- Best Possible Medication History Admit Date and Time: 10/30/20 1130 Processed by: Pharmacy Medication History completed: Yes Secondary Source(s): Facility MAR as ONLY source As the person ultimately responsible for medication therapy, providers are able to order a medication from an existing home medication list in [facility] via the "Reconcile Routine" prior to Confirmation of that medication by network support analyst. Such practice is discouraged except when the physician, in their clinical judgment, deems that a medical need exists for a medication without regard to previous use.
[2020-10-30] MEDS ORDERED: VANCOMYCIN INJ 2 GM in SODIUM CHLORIDE 0.9% 500 ML IV ONE (14:00)
[2020-10-30] MEDS: INSULIN ASPART 300 UNIT/3 ML PEN SUBQ SCH ×3 (14:07→21:07)
[2020-10-30] MEDS: SODIUM CHLORIDE FLUSH 0.9% 10 ML SYRINGE IVP SCH (16:50)
[2020-10-30] MEDS: SACCHAROMYCES BOULARDII 250 MG CAPSULE PO SCH (16:50)
[2020-10-30] MEDS: MEROPENEM 1 GM in SODIUM CHLORIDE 0.9% MINIBAG 100 ML IV SCH (18:15)
[2020-10-30] MEDS: LACTATED RINGERS 1,000 ML IV SCH (18:21)
[2020-10-30] MEDS ORDERED: INSULIN GLARGINE 300 UNIT/3 ML PEN SUBQ SCH ×3 (21:00)
[2020-10-30] MEDS: DOXAZOSIN 1 MG TABLET PO SCH (21:05)
[2020-10-30] MEDS: ATORVASTATIN 40 MG TABLET PO SCH (21:05)
[2020-10-31] MEDS: LACTATED RINGERS 1,000 ML IV SCH (02:26)
[2020-10-31] MEDS: MEROPENEM 1 GM in SODIUM CHLORIDE 0.9% MINIBAG 100 ML IV SCH ×2 (02:26→09:14)
[2020-10-31] MEDS: SODIUM CHLORIDE FLUSH 0.9% 10 ML SYRINGE IVP SCH ×4 (02:27→23:34)
[2020-10-31 05:09] LABS: BASOPHILS # (AUTO) 0.1 10^3/uL (0.0-0.1); BASOPHILS % (AUTO) 0.4 %; HGB - HEMOGLOBIN 10.3 g/dL (14.0-18.0); LYMPHOCYTES # (AUTO) 1.7 10^3/uL (1.5-3.5); LYMPHOCYTES % (AUTO) 12.4 %; MEAN CORPUSCULAR HEMOGLOBIN 29.9 pg (27.0-31.0); MEAN CORPUSCULAR HGB CONC 33.2 g/dL (32.0-36.0); MEAN CORPUSCULAR VOLUME 90.1 fL (80.0-94.0); MEAN PLATELET VOLUME 10.6 fL (7.4-11.4); MONOCYTES # (AUTO) 1.2 10^3/uL (0.0-1.0); MONOCYTES % (AUTO) 8.7 %; NEUTROPHILS # (AUTO) 10.5 10^3/uL (1.5-6.6); NEUTROPHILS % (AUTO) 78.1 %; PLT - PLATELET COUNT 241 10^3/uL (130-450); RED BLOOD COUNT 3.44 10^6/uL (4.70-6.10); RED CELL DISTRIBUTION WIDTH 13.2 % (12.0-15.0); WHITE BLOOD COUNT 13.4 x10^3/uL (4.8-10.8)
[2020-10-31 05:20] LABS: CALCIUM 8.8 mg/dL (8.5-10.3); CREATININE 1.3 mg/dL (0.6-1.2); MAGNESIUM 1.8 mg/dL (1.7-2.8); POTASSIUM 3.8 mmol/L (3.5-5.0)
[2020-10-31] MEDS: PANTOPRAZOLE 40 MG TABLET PO SCH (06:56)
--- NOTE | 2020-10-31 07:31 | PROVIDER PROGRESS NOTE ---
Subjective - Prog Note Date Prog Note Date: 10/31/20 - Subjective Subjective: He reports feeling okay overall. He knows he is at the hospital but is not sure why he is here. He denies any pain, nausea, vomiting. Current Medications - Current Medications Current Medications: Active Medications Acetaminophen (Acetaminophen 325 Mg Tablet) 650 mg PO Q4HR PRN PRN Reason: Pain 1 to 4 Aspirin (Aspirin 325 Mg Tablet) 325 mg PO DAILY [facility] Atorvastatin Calcium (Atorvastatin 40 Mg Tablet) 80 mg PO QPM [facility] Last Admin: 10/30/20 21:05 Dose: 80 mg Documented by: Citalopram Hydrobromide (Citalopram 10 Mg Tablet) 20 mg PO DAILY [facility] Clopidogrel Bisulfate (Clopidogrel 75 Mg Tablet) 75 mg PO DAILY [facility] Doxazosin Mesylate (Doxazosin 1 Mg Tablet) 1 mg PO QPM [facility] Last Admin: 10/30/20 21:05 Dose: 1 mg Documented by: Enoxaparin Sodium (Enoxaparin 40 Mg/0.4 Ml Syringe) 40 mg SUBQ DAILY [facility] Meropenem 1 gm/ Sodium (Chloride) 100 mls @ 200 mls/hr IV Q8H [facility] Last Infusion: 10/31/20 02:56 Dose: Infused Documented by: Vancomycin HCl 1 gm/Vancomycin HCl 500 mg/ Sodium Chloride 500 mls @ 250 mls/hr IV Q24H [facility] Lactated Ringer's (Lr) 1,000 mls @ 100 mls/hr IV .Q10H [facility] Stop: 10/31/20 14:16 Last Admin: 10/31/20 02:26 Dose: 100 mls/hr Documented by: Insulin Aspart (Insulin Aspart 300 Unit/3 Ml Pen) 1 - 9 unit SUBQ 0800,1200,1700,2100 [facility]; Protocol Last Admin: 10/30/20 21:07 Dose: 5 unit Documented by: Insulin Glargine (Insulin Glargine 300 Unit/3 Ml Pen) 20 unit SUBQ QPM [facility] Last Admin: 10/30/20 21:06 Dose: 20 unit Documented by: Ondansetron HCl (Ondansetron 4 Mg/2 Ml Vial) 4 mg IVP Q6HR PRN PRN Reason: Nausea / Vomiting Pantoprazole Sodium (Pantoprazole 40 Mg Tablet) 40 mg PO QDAC [facility] Last Admin: 10/31/20 06:56 Dose: 40 mg Documented by: Saccharomyces Boulardii (Saccharomyces Boulardii 250 Mg Capsule) 250 mg PO BIDWM [facility] Last Admin: 10/30/20 16:50 Dose: 250 mg Documented by: Sodium Chloride (Sodium Chloride Flush 0.9% 10 Ml Syringe) 10 ml IVP PRN PRN PRN Reason: NEEDED PER PROVIDER ORDERS Sodium Chloride (Sodium Chloride Flush 0.9% 10 Ml Syringe) 10 ml IVP 0100,0900,1700 [facility] Last Admin: 10/31/20 02:27 Dose: Not Given Documented by: Tamsulosin HCl (Tamsulosin 0.4 Mg Capsule) 0.4 mg PO DAILY [facility] Thiamine HCl (Thiamine 100 Mg Tablet) 100 mg PO DAILY [facility] Insulin Glargine,Hum.rec.anlog [Basaglar Kwikpen U-100] 24 unit SUBQ DAILY 03/06/19 Acetaminophen 650 mg PO Q4HR PRN 03/07/19 Aspirin 325 mg PO DAILY 03/07/19 Atorvastatin Calcium 80 mg PO QPM 03/07/19 Clopidogrel [Plavix] 75 mg PO DAILY 03/07/19 Ondansetron HCl [Zofran] 8 mg PO Q8H PRN 03/07/19 Thiamine [Vitamin B-1] 100 mg PO DAILY 03/07/19 amLODIPine [Norvasc] 10 mg PO DAILY 03/07/19 Lisinopril [Zestril] 20 mg DAILY 09/03/19 Citalopram [CeleXA] 20 mg PO DAILY 12/16/19 Calcium Carbonate [Tums (Calcium Carbonate 500mg)] 500 - 1,000 mg PO Q2H 1 Insulin Aspart [NovoLOG] 2 - 12 unit SUBQ TIDWM 10/30/20 Insulin Aspart [NovoLOG] 7 unit SUBQ TIDWM 10/30/20 Omeprazole [PriLOSEC] 20 mg PO DAILY 10/30/20 Objective - Vital Signs/Intake & Output Reviewed Vital Signs: Yes Vital Signs: Vital Signs x48h Temp Pulse Resp BP Pulse Ox 10/31/20 05:00 36.8 C 64 17 115/69 93 10/31/20 00:02 37.6 C 76 18 115/76 93 Intake & Output: Intake & Output 10/28/20 10/29/20 10/30/2012/21 23:59 23:59 23:59 23:59 Intake Total 201.214 0571.333 Output Total 1100 475 Balance -233.616 598.333 - Objective General Appearance: positive: No acute distress, Alert Eyes Bilateral: positive: Normal inspection, Conjunctivae nml ENT: positive: ENT inspection nml Neck: positive: Nml inspection Respiratory: positive: No respiratory distress. negative: Wheezes, Rales Cardiovascular: positive: Regular rate & rhythm, No murmur. negative: Tachycardia Abdomen: positive: Non-tender, No distention. negative: Tenderness Skin: positive: Warm, Dry Extremities: positive: No pedal edema Neurologic/Psychiatric: negative: Disoriented to person, Disoriented to place - Lab Results Fish Bones: 10/31/20 04:55 10/31/20 04:55 Other Labs: Lab Results x24hrs 10/31/20 10/31/20 10/30/20 Range/Units 04:55 04:55 12:04 WBC 13.4 H (4.8-10.8) x10^3/uL RBC 3.44 L (4.70-6.10) 10^6/uL Hgb 10.3 L (14.0-18.0) g/dL Hct 31.0 L (42.0-52.0) % MCV 90.1 (80.0-94.0) fL MCH 29.9 (27.0-31.0) pg MCHC 33.2 (32.0-36.0) g/dL RDW 13.2 (12.0-15.0) % Plt Count 241 (130-450) 10^3/uL MPV 10.6 (7.4-11.4) fL Neut # (Auto) 10.5 H (1.5-6.6) 10^3/uL Lymph # (Auto) 1.7 (1.5-3.5) 10^3/uL Noble # (Auto) 1.2 H (0.0-1.0) 10^3/uL Eos # (Auto) 0.0 (0.0-0.7) 10^3/uL Baso # (Auto) 0.1 (0.0-0.1) 10^3/uL Absolute Nucleated RBC 0.00 x10^3/uL Nucleated RBC % 0.0 /100WBC Sodium 140 (135-145) mmol/L Potassium 3.8 (3.5-5.0) mmol/L Chloride 107 (101-111) mmol/L Carbon Dioxide 23 (21-32) mmol/L Anion Gap 10.0 (6-13) BUN 29 H (6-20) mg/dL Creatinine 1.3 H (0.6-1.2) mg/dL Estimated GFR (MDRD) 55 L (>89) Glucose 153 H (70-100) mg/dL Estimat Average Glucose (70-100) mg/dL Hemoglobin A1c % (4.27-6.07) % Lactic Acid 1.0 (0.5-2.2) mmol/L Calcium 8.8 (8.5-10.3) mg/dL Magnesium 1.8 (1.7-2.8) mg/dL Total Bilirubin (0.2-1.0) mg/dL AST (10-42) IU/L ALT (10-60) IU/L Alkaline Phosphatase (42-121) IU/L Total Protein (6.7-8.2) g/dL Albumin (3.2-5.5) g/dL Globulin (2.1-4.2) g/dL Albumin/Globulin Ratio (1.0-2.2) Lipase (22-51) U/L Urine Color Urine Clarity (CLEAR) Urine pH (5.0-7.5) PH Ur Specific [place] (1.002-1.030) Urine Protein (NEGATIVE) mg/dL Urine Glucose (UA) (NEGATIVE) mg/dL Urine Ketones (NEGATIVE) mg/dL Urine Occult Blood (NEGATIVE) Urine Nitrite (NEGATIVE) Urine Bilirubin (NEGATIVE) Urine Urobilinogen (NORMAL) E.U./dL Ur Leukocyte Esterase (NEGATIVE) Urine RBC (0-5) /HPF Urine WBC (0-3) /HPF Ur Squamous Epith Cells (<= Few) Urine Bacteria (None Seen) /HPF Urine Culture Comments Nasal Adenovirus (PCR) Nasal B. parapertussis DNA (PCR) Nasal Coronavir 229E PCR Nasal Coronavir HKU1 PCR Nasal Coronavir NL63 PCR Nasal Coronavir OC43 PCR Nasal Enterovir/Rhinovir PCR Nasal Influenza B PCR Nasal Influenza A PCR Nasal Parainfluen 1 PCR Nasal Parainfluen 2 PCR Nasal Parainfluen 3 PCR Nasal Parainfluen 4 PCR Nasal RSV (PCR) Nasal B.pertussis DNA PCR Nasal C.pneumoniae (PCR) Raz Human Metapneumo PCR Nasal M.pneumoniae (PCR) Nasal SARS-CoV-2 (PCR) 10/30/20 10/30/20 10/30/20 Range/Units 09:20 09:20 09:20 WBC (4.8-10.8) x10^3/uL RBC (4.70-6.10) 10^6/uL Hgb (14.0-18.0) g/dL Hct (42.0-52.0) % MCV (80.0-94.0) fL MCH (27.0-31.0) pg MCHC (32.0-36.0) g/dL RDW (12.0-15.0) % Plt Count (130-450) 10^3/uL MPV (7.4-11.4) fL Neut # (Auto) (1.5-6.6) 10^3/uL Lymph # (Auto) (1.5-3.5) 10^3/uL Noble # (Auto) (0.0-1.0) 10^3/uL Eos # (Auto) (0.0-0.7) 10^3/uL Baso # (Auto) (0.0-0.1) 10^3/uL Absolute Nucleated RBC x10^3/uL Nucleated RBC % /100WBC Sodium (135-145) mmol/L Potassium (3.5-5.0) mmol/L Chloride (101-111) mmol/L Carbon Dioxide (21-32) mmol/L Anion Gap (6-13) BUN (6-20) mg/dL Creatinine (0.6-1.2) mg/dL Estimated GFR (MDRD) (>89) Glucose (70-100) mg/dL Estimat Average Glucose (70-100) mg/dL Hemoglobin A1c % (4.27-6.07) % Lactic Acid 2.5 H (0.5-2.2) mmol/L Calcium (8.5-10.3) mg/dL Magnesium (1.7-2.8) mg/dL Total Bilirubin (0.2-1.0) mg/dL AST (10-42) IU/L ALT (10-60) IU/L Alkaline Phosphatase (42-121) IU/L Total Protein (6.7-8.2) g/dL Albumin (3.2-5.5) g/dL Globulin (2.1-4.2) g/dL Albumin/Globulin Ratio (1.0-2.2) Lipase (22-51) U/L Urine Color DARK YELLOW Urine Clarity CLEAR (CLEAR) Urine pH 5.5 (5.0-7.5) PH Ur Specific [place] >=1.030 H (1.002-1.030) Urine Protein TRACE (NEGATIVE) mg/dL Urine Glucose (UA) NEGATIVE (NEGATIVE) mg/dL Urine Ketones NEGATIVE (NEGATIVE) mg/dL Urine Occult Blood MODERATE H (NEGATIVE) Urine Nitrite POSITIVE H (NEGATIVE) Urine Bilirubin NEGATIVE (NEGATIVE) Urine Urobilinogen 0.2 (NORMAL) (NORMAL) E.U./dL Ur Leukocyte Esterase SMALL H (NEGATIVE) Urine RBC 6-10 H (0-5) /HPF Urine WBC 4-5 (0-3) /HPF Ur Squamous Epith Cells FEW Squamous (<= Few) Urine Bacteria Few (None Seen) /HPF Urine Culture Comments INDICATED Nasal Adenovirus (PCR) NOT DETECTED Nasal B. parapertussis DNA (PCR) NOT DETECTED Nasal Coronavir 229E PCR NOT DETECTED Nasal Coronavir HKU1 PCR NOT DETECTED Nasal Coronavir NL63 PCR NOT DETECTED Nasal Coronavir OC43 PCR NOT DETECTED Nasal Enterovir/Rhinovir PCR NOT DETECTED Nasal Influenza B PCR NOT DETECTED Nasal Influenza A PCR NOT DETECTED Nasal Parainfluen 1 PCR NOT DETECTED Nasal Parainfluen 2 PCR NOT DETECTED Nasal Parainfluen 3 PCR NOT DETECTED Nasal Parainfluen 4 PCR NOT DETECTED Nasal RSV (PCR) NOT DETECTED Nasal B.pertussis DNA PCR NOT DETECTED Nasal C.pneumoniae (PCR) NOT DETECTED Raz Human Metapneumo PCR NOT DETECTED Nasal M.pneumoniae (PCR) NOT DETECTED Nasal SARS-CoV-2 (PCR) NOT DETECTED 10/30/20 10/30/20 10/30/20 Range/Units 09:15 09:15 09:15 WBC 15.4 H (4.8-10.8) x10^3/uL RBC 4.08 L (4.70-6.10) 10^6/uL Hgb 12.3 L (14.0-18.0) g/dL Hct 36.8 L (42.0-52.0) % MCV 90.2 (80.0-94.0) fL MCH 30.1 (27.0-31.0) pg MCHC 33.4 (32.0-36.0) g/dL RDW 13.2 (12.0-15.0) % Plt Count 287 (130-450) 10^3/uL MPV 10.7 (7.4-11.4) fL Neut # (Auto) 11.8 H (1.5-6.6) 10^3/uL Lymph # (Auto) 2.1 (1.5-3.5) 10^3/uL Noble # (Auto) 1.4 H (0.0-1.0) 10^3/uL Eos # (Auto) 0.0 (0.0-0.7) 10^3/uL Baso # (Auto) 0.1 (0.0-0.1) 10^3/uL Absolute Nucleated RBC 0.00 x10^3/uL Nucleated RBC % 0.0 /100WBC Sodium 137 (135-145) mmol/L Potassium 3.9 (3.5-5.0) mmol/L Chloride 105 (101-111) mmol/L Carbon Dioxide 20 L (21-32) mmol/L Anion Gap 12.0 (6-13) BUN 35 H (6-20) mg/dL Creatinine 1.6 H (0.6-1.2) mg/dL Estimated GFR (MDRD) 43 L (>89) Glucose 163 H (70-100) mg/dL Estimat Average Glucose 197 H (70-100) mg/dL Hemoglobin A1c % 8.5 H (4.27-6.07) % Lactic Acid (0.5-2.2) mmol/L Calcium 9.7 (8.5-10.3) mg/dL Magnesium 1.8 (1.7-2.8) mg/dL Total Bilirubin 1.0 (0.2-1.0) mg/dL AST 17 (10-42) IU/L ALT 19 (10-60) IU/L Alkaline Phosphatase 68 (42-121) IU/L Total Protein 8.0 (6.7-8.2) g/dL Albumin 3.9 (3.2-5.5) g/dL Globulin 4.1 (2.1-4.2) g/dL Albumin/Globulin Ratio 1.0 (1.0-2.2) Lipase 18 L (22-51) U/L Urine Color Urine Clarity (CLEAR) Urine pH (5.0-7.5) PH Ur Specific [place] (1.002-1.030) Urine Protein (NEGATIVE) mg/dL Urine Glucose (UA) (NEGATIVE) mg/dL Urine Ketones (NEGATIVE) mg/dL Urine Occult Blood (NEGATIVE) Urine Nitrite (NEGATIVE) Urine Bilirubin (NEGATIVE) Urine Urobilinogen (NORMAL) E.U./dL Ur Leukocyte Esterase (NEGATIVE) Urine RBC (0-5) /HPF Urine WBC (0-3) /HPF Ur Squamous Epith Cells (<= Few) Urine Bacteria (None Seen) /HPF Urine Culture Comments Nasal Adenovirus (PCR) Nasal B. parapertussis DNA (PCR) Nasal Coronavir 229E PCR Nasal Coronavir HKU1 PCR Nasal Coronavir NL63 PCR Nasal Coronavir OC43 PCR Nasal Enterovir/Rhinovir PCR Nasal Influenza B PCR Nasal Influenza A PCR Nasal Parainfluen 1 PCR Nasal Parainfluen 2 PCR Nasal Parainfluen 3 PCR Nasal Parainfluen 4 PCR Nasal RSV (PCR) Nasal B.pertussis DNA PCR Nasal C.pneumoniae (PCR) Raz Human Metapneumo PCR Nasal M.pneumoniae (PCR) Nasal SARS-CoV-2 (PCR) ABX Reporting Has patient been on IV antibiotics over the past 48 hours?: Yes Sepsis Event Note (H) - Evaluation Current Stage of Sepsis: Resolved Possible source of Sepsis: positive: Genitourinary - Sepsis Criteria Sepsis Criteria: Recorded Temperature greater than 38.3C or Less than 36C, Recorded Heart Rate greater than 90 bpm, WBC count greater than 10% bands, WBC count greater than 12,000 or less than 4000, Metabolic: lactate > 2 mmol/L Assessment/Plan - Problem List (1) Sepsis Impression: This is secondary to suspected urinary tract infection. He presented with fever, leukocytosis, elevated lactic acid and acute kidney injury. Clinically he appears improved from a sepsis standpoint as he is now fever free with improving white count and normal lactic acid. He had been on vancomycin and meropenem given his prior urine cultures grew Enterococcus and Proteus and the fact that he was septic. We will switch him to Zosyn IV given preliminary urine cultures growing gram-negative's. His blood cultures have been negative to date but we will continue to follow this up. Qualifiers: Sepsis type: sepsis due to unspecified organism Sepsis acute organ dysfunction status: with acute organ dysfunction Severe sepsis acute organ dysfunction type: acute renal failure Severe sepsis shock status: without septic shock (2) Recurrent UTI Impression: This appears to be the cause of his sepsis. Imaging did not reveal any evidence of obstruction. His prior urine cultures grew Enterococcus, Proteus, Providencia. We will switch his vancomycin and meropenem to Zosyn alone given u rine culture is growing gram-negative's. We will continue follow-up with urine culture and switch to oral antibiotics based off sensitivities and as long as he clinically improves. (3) Acute renal insufficiency Impression: He did have acute kidney injury on admission with a creatinine of 1.6. His baseline appears to be about 1.3. This was likely prerenal injury given the sepsis. He has responded well to IV fluids. We will continue to monitor his renal function. (4) Insulin dependent diabetes mellitus Impression: His A1c is 8.5%. His blood glucose has been elevated at greater than 200. We will increase his Lantus dose to 24 units which he takes at home. We will also resume his home NovoLog with meals and continue sliding scale. Continue carb controlled diet. (5) Indwelling Bryant catheter present Impression: He has a chronic indwelling Bryant catheter and given the concern for infection, we will change out the catheter today. (6) Multi-infarct dementia Impression: He does have dementia at baseline secondary to prior history of strokes. He will be discharged back to [facility] once medically stable. Qualifiers: Dementia behavioral disturbance: without behavioral disturbance Qualified Code(s): F01.50 - Vascular dementia without behavioral disturbance
[2020-10-31] MEDS: INSULIN ASPART 300 UNIT/3 ML PEN SUBQ SCH ×5 (08:12→21:02)
[2020-10-31] MEDS: ENOXAPARIN 40 MG/0.4 ML SYRINGE SUBQ SCH (08:13)
[2020-10-31] MEDS: CITALOPRAM 10 MG TABLET PO SCH (08:14)
[2020-10-31] MEDS: SACCHAROMYCES BOULARDII 250 MG CAPSULE PO SCH ×2 (08:14→17:07)
[2020-10-31] MEDS: CLOPIDOGREL 75 MG TABLET PO SCH (08:14)
[2020-10-31] MEDS: ASPIRIN 325 MG TABLET PO SCH (08:14)
[2020-10-31] MEDS: THIAMINE 100 MG TABLET PO SCH (08:14)
[2020-10-31] MEDS: TAMSULOSIN 0.4 MG CAPSULE PO SCH (08:14)
[2020-10-31] MEDS ORDERED: VANCOMYCIN INJ 1 GM in SODIUM CHLORIDE 0.9% 250 ML IV SCH (10:00)
[2020-10-31] MEDS ORDERED: PIPERACILLIN/TAZOBACTAM 4.5 GM in SODIUM CHLORIDE 0.9% MINIBAG 100 ML IV ONE (12:00)
[2020-10-31] MEDS ORDERED: VANCOMYCIN INJ 1 GM, VANCOMYCIN INJ 500 MG in SODIUM CHLORIDE 0.9% 500 ML IV SCH (14:00)
[2020-10-31] MEDS ORDERED: PIPERACILLIN/TAZOBACTAM 4.5 GM in SODIUM CHLORIDE 0.9% MINIBAG 100 ML IV SCH (16:00)
[2020-10-31] MEDS: PIPERACILLIN/TAZOBACTAM 4.5 GM in SODIUM CHLORIDE 0.9% MINIBAG 100 ML IV SCH (18:48)
[2020-10-31] MEDS ORDERED: INSULIN GLARGINE 300 UNIT/3 ML PEN SUBQ SCH (21:00)
[2020-10-31] MEDS: ATORVASTATIN 40 MG TABLET PO SCH (21:03)
[2020-10-31] MEDS: DOXAZOSIN 1 MG TABLET PO SCH (21:03)
[2020-11-01] MEDS: PIPERACILLIN/TAZOBACTAM 4.5 GM in SODIUM CHLORIDE 0.9% MINIBAG 100 ML IV SCH (02:55)
[2020-11-01 05:22] LABS: BASOPHILS # (AUTO) 0.1 10^3/uL (0.0-0.1); BASOPHILS % (AUTO) 0.7 %; EOSINOPHILS # (AUTO) 0.4 10^3/uL (0.0-0.7); EOSINOPHILS % (AUTO) 4.8 %; HCT - HEMATOCRIT 31.1 % (42.0-52.0); HGB - HEMOGLOBIN 10.1 g/dL (14.0-18.0); LYMPHOCYTES # (AUTO) 1.5 10^3/uL (1.5-3.5); LYMPHOCYTES % (AUTO) 19.1 %; MEAN CORPUSCULAR HEMOGLOBIN 29.6 pg (27.0-31.0); MEAN CORPUSCULAR HGB CONC 32.5 g/dL (32.0-36.0); MEAN CORPUSCULAR VOLUME 91.2 fL (80.0-94.0); MEAN PLATELET VOLUME 11.2 fL (7.4-11.4); MONOCYTES # (AUTO) 0.7 10^3/uL (0.0-1.0); MONOCYTES % (AUTO) 9.4 %; NEUTROPHILS % (AUTO) 65.6 %; PLT - PLATELET COUNT 254 10^3/uL (130-450); RED BLOOD COUNT 3.41 10^6/uL (4.70-6.10); RED CELL DISTRIBUTION WIDTH 13.2 % (12.0-15.0); WHITE BLOOD COUNT 7.6 x10^3/uL (4.8-10.8)
[2020-11-01 05:30] LABS: CALCIUM 8.8 mg/dL (8.5-10.3); CREATININE 1.3 mg/dL (0.6-1.2); POTASSIUM 3.8 mmol/L (3.5-5.0)
[2020-11-01] MEDS: PANTOPRAZOLE 40 MG TABLET PO SCH (06:09)
[2020-11-01] MEDS: INSULIN ASPART 300 UNIT/3 ML PEN SUBQ SCH ×4 (08:34→12:37)
[2020-11-01] MEDS: TAMSULOSIN 0.4 MG CAPSULE PO SCH (08:35)
[2020-11-01] MEDS: SACCHAROMYCES BOULARDII 250 MG CAPSULE PO SCH (08:35)
[2020-11-01] MEDS: CLOPIDOGREL 75 MG TABLET PO SCH (08:35)
[2020-11-01] MEDS: CITALOPRAM 10 MG TABLET PO SCH (08:35)
[2020-11-01] MEDS: ENOXAPARIN 40 MG/0.4 ML SYRINGE SUBQ SCH (08:38)
[2020-11-01] MEDS: THIAMINE 100 MG TABLET PO SCH (08:38)
[2020-11-01] MEDS: SODIUM CHLORIDE FLUSH 0.9% 10 ML SYRINGE IVP SCH (08:38)
[2020-11-01] MEDS: ASPIRIN 325 MG TABLET PO SCH (08:42)
[2020-11-01] MEDS ORDERED: cefTRIAXone 1 GM in SODIUM CHLORIDE 0.9% MINIBAG 100 ML IV SCH (09:00)
[2020-11-01] MEDS ORDERED: lisinopriL 20 MG TABLET PO SCH (12:00)
--- NOTE | 2020-11-01 12:06 | Discharge Plan ---
Discharge Plan for SNF / [facility] - Discharge Plan And Transition Orders Problem Reviewed?: Yes Disposition: SNF DC/Xfer Condition: Stable Allergies and Adverse Reactions: Allergies Allergy/AdvReac Type Severity Reaction Status Date / Time No Known Drug Allergies Allergy Verified 10/30/20 09:18 Health Concerns: The patient was admitted for sepsis secondary to a urinary tract infection. He was treated with IV Zosyn initially. He became afebrile and his white count increased on a daily basis. His blood cultures have been negative to date for 48 hours. His urine culture grew Providencia. Sensitivities came back sensitive to ceftriaxone, Zosyn, ertapenem. Given he is clinically improved now, we will discharge him on oral Vantin for 11 more days to complete 14 days of therapy for a complicated urinary tract infection. His Bryant catheter was changed during this hospitalization as well. Plan of Treatment: He will continue Vantin twice daily for 11 more days to complete 14 days of therapy. His blood pressure has been well controlled and so we will discontinue amlodipine on discharge but he will continue lisinopril. He can follow-up with his primary care provider to monitor his blood pressure. - SNF / [facility] Transition Orders Admit to (Facility): [facility] Medicare Certification Statement: I certify that [facility] is medically necessary on a continuing basis for any of the conditions for which she/he is receiving care during hospitalization. Notify PCP of admission and forward orders to primary provider for signature. Other Notification Orders: Call PCP immediately if patient develops dyspnea, chest pain/tightness or edema. Additional Bowel Program Orders: If no BM after 2 days, nurse may give M.O.M. 30ml PO PRN and/or ducolax Supp 1 [place] and/or ARAMIS 250mg P.O., and/or senna 1-2 tabs PO. On day 3 nurse may give repeat above order until residents constipation is resolved. Medication Orders: PLEASE REFER TO THE DISCHARGE MEDICATION LIST. - Medications New Prescriptions: Cefpodoxime Proxetil [Vantin] 200 mg PO BID 11 Days #44 tablet - Diet Type: No added sugar Texture: Regular Liquids: Thin Follow Up: He can follow-up with his primary care provider in 1 week.
--- NOTE | 2020-11-01 12:26 | DISCHARGE SUMMARY ---
Discharge Summary Admit Date: 10/30/20 Discharge Date: 11/01/20 Discharging Provider: Anthony Joseph Primary Care Provider: Lee Ignacio Code Status: Do Not Attempt Resuscitation Condition at Discharge: Stable Discharge Disposition: SNF DC/Xfer - DIAGNOSES Admission Diagnoses: Sepsis Recurrent UTI Indwelling Bryant catheter present Diabetes mellitus CKD stage III History of TIA/stroke Discharge Diagnoses with Status of Each Condition: Sepsis - resolved Recurrent UTI - improved. Acute renal insufficiency - improved. Insulin-dependent diabetes mellitus - stable. Indwelling Bryant catheter present - stable. Multi-infarct dementia - stable. 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 pt is living at [facility]. pt is poor historian. His simple answer to questions is " I do not know." He was report to fell out of bed this morning without injury. It was unwitnessed also. he was reported to complain of abdominal pain in ER. Chest x-ray show cardiomegaly and mild congestion. CT of the abdomen and pelvis show Unremarkable Except small left pleural effusion and bibasilar atelectasis or small infiltrate. Routine laboratory tests that show WBC is 15, creatinine 1.6, lactic acid 2.5. Urinalysis show pyuria urine indicating infection. Given above medical conditions, medical team was consulted for admission. Discussed care goal with patient, patient insisted he is DNR. Patient had a POLST, which show patient is DNR and focus on comfortable care. - HOSPITAL COURSE Hospital Course: The patient was admitted to the floor for sepsis secondary to urinary tract infection. He was febrile with an elevated white count on admission as well as elevated lactic acid. He was started on vancomycin and meropenem IV initially given prior cultures grew Enterococcus and gram-negative's. After discussion w [facility] pharmacy this was switched to monotherapy with Zosyn IV. His blood cultures came back negative after 48 hours and his urine culture grew Providencia. This was sensitive to ceftriaxone. He was given a dose of ceftriaxone on the day of discharge and sent home on oral Vantin for 11 more days to complete 2 weeks of therapy for complicated urinary tract infection. This was the only antibiotic t hat would be appropriate given the sensitivities were available. The only other options were IV therapies. His Bryant catheter was also exchanged. His home amlodipine was also discontinued given he had been normotensive here. He was continued on lisinopril on discharge. - ALLERGIES Allergies/Adverse Reactions: Allergies Allergy/AdvReac Type Severity Reaction Status Date / Time No Known Drug Allergies Allergy Verified 10/30/20 09:18 - MEDICATIONS Home Medications: Ambulatory Orders Medication Instructions Recorded Confirmed Doxazosin [Cardura] 1 mg PO QPM #30 tablet 08/27/18 10/30/20 Tamsulosin [Flomax] 0.4 mg PO DAILY #30 capsule 08/27/18 10/30/20 Insulin Glargine,Hum.rec.anlog 24 unit SUBQ DAILY 03/06/19 10/30/20 [Basaglar Kwikpen U-100] Acetaminophen 650 mg PO Q4HR PRN 03/07/19 10/30/20 Aspirin 325 mg PO DAILY 03/07/19 10/30/20 Atorvastatin Calcium 80 mg PO QPM 03/07/19 10/30/20 Clopidogrel [Plavix] 75 mg PO DAILY 03/07/19 10/30/20 Ondansetron HCl [Zofran] 8 mg PO Q8H PRN 03/07/19 10/30/20 Thiamine [Vitamin B-1] 100 mg PO DAILY 03/07/19 10/30/20 Lisinopril [Zestril] 20 mg DAILY 09/03/19 10/30/20 Citalopram [CeleXA] 20 mg PO DAILY 12/16/19 10/30/20 Calcium Carbonate [Tums (Calcium 500 - 1,000 mg PO Q2H 10/30/20 10/30/20 Carbonate 500mg)] Insulin Aspart [NovoLOG] 2 - 12 unit SUBQ TIDWM 10/30/20 10/30/20 Insulin Aspart [NovoLOG] 7 unit SUBQ TIDWM 10/30/20 10/30/20 Omeprazole [PriLOSEC] 20 mg PO DAILY 10/30/20 10/30/20 Cefpodoxime Proxetil [Vantin] 200 mg PO BID 11 Days #44 tablet 11/01/20 - PHYSICAL EXAM AT DISCHARGE General Appearance: positive: No acute distress, Alert Eyes Bilateral: positive: Normal inspection ENT: positive: ENT inspection nml Neck: positive: Nml inspection Respiratory: positive: No respiratory distress. negative: Wheezes, Rales Cardiovascular: positive: Regular rate & rhythm, No murmur. negative: Tachycardia, Systolic murmur Abdomen: positive: Non-tender, No distention. negative: Tenderness, Guarding, Rebound Skin: positive: Warm, Dry Extremities: positive: No pedal edema Neurologic/Psychiatric: negative: Disoriented to person, Disoriented to place Physical Exam Other/Comments: Vital Signs - 24 hr 10/31/20 10/31/20 11/01/20 19:40 23:30 04:30 Temperature 37.5 C 37.1 C 37 C Heart Rate [ 64 63 58 L Brachial] Respiratory 18 17 18 Rate Blood Pressure 129/75 125/72 138/73 H [Right Brachial artery] O2 Saturation 94 96 95 11/01/20 11/01/20 09:00 12:43 Temperature 36.5 C 36.5 C Heart Rate [ 57 L 55 L Brachial] Respiratory 19 18 Rate Blood Pressure 133/76 H 137/79 H [Right Brachial artery] O2 Saturation 97 98 Oxygen O2 Source [With Activity] Nasal cannula O2 Source Room air - LABS Result Diagrams: 11/01/20 04:30 11/01/20 04:30 - DIAGNOSTIC IMAGING Diagnostic Imaging Results: Final report reviewed - SEPSIS Current Stage of Sepsis: Resolved Possible source of Sepsis: Genitourinary Sepsis Criteria: Recorded Temperature greater than 38.3C or Less than 36C, Recorded Heart Rate greater than 90 bpm, WBC count greater than 10% bands, WBC count greater than 12,000 or less than 4000, Metabolic: lactate > 2 mmol/L - FOLLOW UP Follow Up: He will need to follow-up with his primary care provider in 1 week. - TIME SPENT Time Spent in Discharge (Minutes): 32
[2020-11-01 12:44] VITALS: BP 137/79
== END 2020-11-01 14:29 | disposition home or self-care (01) | DRG 698 ==
LOC: EDUNIT# → ED 09:01 → MS2 11:30
PROVIDERS: ADMIT Nurse Practitioner Gerontology; ATTEND Internal Medicine
DX: A41.9 Sepsis, unspecified organism (principal); T83.511A Infection and inflammatory reaction due to indwelling urethral catheter, initial encounter; E11.9 Type 2 diabetes mellitus without complications; I10 Essential (primary) hypertension; A41.89 Other specified sepsis; R65.20 Severe sepsis without septic shock; N17.9 Acute kidney failure, unspecified; Z16.30 Resistance to unspecified antimicrobial drugs; N30.20 Other chronic cystitis without hematuria; N40.1 Benign prostatic hyperplasia with lower urinary tract symptoms; N28.9 Disorder of kidney and ureter, unspecified; R33.8 Other retention of urine; E78.5 Hyperlipidemia, unspecified; I12.9 Hypertensive chronic kidney disease with stage 1 through stage 4 chronic kidney disease, or unspecified chronic kidney disease; E11.22 Type 2 diabetes mellitus with diabetic chronic kidney disease; N18.30 Chronic kidney disease, stage 3 unspecified; F01.50 Vascular dementia, unspecified severity, without behavioral disturbance, psychotic disturbance, mood disturbance, and anxiety; Z20.822 Contact with and (suspected) exposure to COVID-19; I25.10 Atherosclerotic heart disease of native coronary artery without angina pectoris; G80.9 Cerebral palsy, unspecified; F32.9 Major depressive disorder, single episode, unspecified; F41.9 Anxiety disorder, unspecified; F15.11 Other stimulant abuse, in remission; G89.29 Other chronic pain; M54.9 Dorsalgia, unspecified; R53.83 Other fatigue; H54.7 Unspecified visual loss; Z66 Do not resuscitate; Z79.4 Long term (current) use of insulin; Z79.82 Long term (current) use of aspirin; Z79.02 Long term (current) use of antithrombotics/antiplatelets; Z79.899 Other long term (current) drug therapy; Z87.01 Personal history of pneumonia (recurrent); Z86.73 Personal history of transient ischemic attack (TIA), and cerebral infarction without residual deficits; I25.2 Old myocardial infarction; Z91.81 History of falling
CPT/HCPCS: 36415; 71045; 74177; 80048; 80053; 81001; 83036; 83605; 83690; 83735; 85025; 87040; 87077; 87086; 87181; 87631; 96365; 99285; A9270; J1650; J1815; J2185; J3370; J7120; Q9967; 0202U

== ENCOUNTER 2020-11-24 14:33 | Outpatient (CLI) | payer MEDICARE, MEDICAID | END 2020-11-24 14:34 | disposition critical access hospital (66) | LOC: EMS 14:33 | DX: T83.098A Other mechanical complication of other urinary catheter, initial encounter (principal); Z46.6 Encounter for fitting and adjustment of urinary device | CPT/HCPCS: A0425; A0429 ==

== ENCOUNTER 2020-11-24 14:54 | Emergency (ER) | payer MEDICARE, MEDICAID ==
[2020-11-24 15:13] VITALS: BP 143/87
--- NOTE | 2020-11-24 15:13 | ED Physician Documentation ---
History of Present Illness - Stated complaint Stated Complaint: CATH ISSUE - Chief complaint Chief Complaint: Abd Pain - History obtained from History obtained from: Patient, EMS - History of Present Illness Timing: Today Pain level max: 0 Pain level now: 0 - Additonal information Additional information: 65-[facility] [place] the nursing staff there noticed his catheter leaking, they attempted to remove the catheter, but could not remove the catheter. Called EMS and brought him here. Patient currently has no complaints. No fevers. No chills. Nothing makes it better or worse. Has a chronic Bryant in place. He states he does not know if he sees a urologist or not. Review of Systems Constitutional: denies: Fever, Chills Skin: denies: Rash Musculoskeletal: denies: Neck pain, Back pain Neurologic: denies: Headache PD PAST MEDICAL HISTORY - Past Medical History Cardiovascular: Hypertension, High cholesterol Respiratory: Pneumonia Neuro: Dementia, Cerebral palsy, CVA, Other Endocrine/Autoimmune: Type 2 diabetes GI: None : Benign prostate hypertrophy, Retention, Chronic bladder infection, Renal insuffiency, Indwelling catheter HEENT: Chronic vision loss Psych: Depression, Anxiety Musculoskeletal: Fatigue, Chronic back pain Derm: None - Past Surgical History Past Surgical History: Yes - Present Medications Home Medications: Ambulatory Orders Medication Instructions Recorded Confirmed Doxazosin [Cardura] 1 mg PO QPM #30 tablet 08/27/18 10/30/20 Tamsulosin [Flomax] 0.4 mg PO DAILY #30 capsule 08/27/18 10/30/20 Insulin Glargine,Hum.rec.anlog 24 unit SUBQ DAILY 03/06/19 10/30/20 [Basaglar Kwikpen U-100] Acetaminophen 650 mg PO Q4HR PRN 03/07/19 10/30/20 Aspirin 325 mg PO DAILY 03/07/19 10/30/20 Atorvastatin Calcium 80 mg PO QPM 03/07/19 10/30/20 Clopidogrel [Plavix] 75 mg PO DAILY 03/07/19 10/30/20 Ondansetron HCl [Zofran] 8 mg PO Q8H PRN 03/07/19 10/30/20 Thiamine [Vitamin B-1] 100 mg PO DAILY 03/07/19 10/30/20 Lisinopril [Zestril] 20 mg DAILY 09/03/19 10/30/20 Citalopram [CeleXA] 20 mg PO DAILY 12/16/19 10/30/20 Calcium Carbonate [Tums (Calcium 500 - 1,000 mg PO Q2H 10/30/20 10/30/20 Carbonate 500mg)] Insulin Aspart [NovoLOG] 2 - 12 unit SUBQ TIDWM 10/30/20 10/30/20 Insulin Aspart [NovoLOG] 7 unit SUBQ TIDWM 10/30/20 10/30/20 Omeprazole [PriLOSEC] 20 mg PO DAILY 10/30/20 10/30/20 Cefpodoxime Proxetil [Vantin] 200 mg PO BID 11 Days #44 tablet 11/01/20 - Allergies Allergies/Adverse Reactions: Allergies Allergy/AdvReac Type Severity Reaction Status Date / Time No Known Drug Allergies Allergy Verified 11/24/20 15:13 - Social History Does the pt smoke?: No Smoking Status: Former smoker Does the pt drink ETOH?: No Does the pt have substance abuse?: Yes - Immunizations Immunizations are current?: Yes - POLST Patient has POLST: Yes POLST Status: Full Code PD ED PE NORMAL - Vitals Vital signs reviewed: Yes - General General: Alert and oriented X 3, No acute distress - HEENT HEENT: Moist mucous membranes - Neck Neck: Supple, no meningeal sign - Cardiac Cardiac: RRR - Respiratory Respiratory: No respiratory distress, Clear bilaterally - Abdomen Abdomen: Soft, Non tender, Non distended - Male Male : Other (Bryant catheter in place, large amount of sediment.) - Derm Derm: Warm and dry - Extremities Extremities: No edema - Neuro Neuro: Alert and oriented X 3 - Psych Psych: Normal mood, Normal affect Results - Vitals Vitals: Vital Signs - 24 hr 11/24/20 11/24/20 15:07 15:14 Temperature 36.8 C 36.8 C Heart Rate 66 66 Respiratory 14 14 Rate Blood Pressure 143/87 H 143/87 H O2 Saturation 97 97 Oxygen O2 Source [With Activity] Nasal cannula O2 Source Room air PD MEDICAL DECISION MAKING - ED course Complexity details: reviewed results, re-evaluated patient, considered differential, d/w patient ED course: The Bryant catheter was unable to be removed. He likely has an encrusted catheter. Discussed the case with Rubina Mendez at [facility] urology clinic. She spoke with the on-call urologist. They recommend that he come to the clinic in the morning for attempted removal of the encrustation. Patient has carrington roximately 120 mL of fluid in his bladder on bladder scan. Patient counseled regarding signs and symptoms for which I believe and urgent re-evaluation would be necessary. Patient with good understanding of and agreement to plan and is comfortable going home at this time This document was made in part using voice recognition software. While efforts are made to proofread this document, sound alike and grammatical errors may occur. Departure - Departure Disposition: Home, Self Care Clinical Impression: Urinary catheter dysfunction Qualifiers: Encounter type: initial encounter Qualified Code(s): T83.018A - Breakdown (mechanical) of other urinary catheter, initial encounter Condition: Good Instructions: ED Catheter Care Bryant Follow-Up: [facility] [Provider Group] - Tomorrow Comments: The patient will be seen at [facility] tomorrow, the urology office. He normally sees Dr. Caldwell over there. He will see the nurse. They will see if they can puncture of the end of the catheter and remove the obstruction. Do not give him too much fluid until then. If he worsens before that time, I would recommend transfer directly to the [facility] emergency department for urological intervention as urology is not available here. Discharge Date/Time: 11/24/20 17:55
== END 2020-11-24 17:55 | disposition home or self-care (01) ==
LOC: EDUNIT# → SUPCPDRO 14:54 → ED 14:54
DX: T83.031A Leakage of indwelling urethral catheter, initial encounter (principal); T83.018A Breakdown (mechanical) of other urinary catheter, initial encounter; Y84.6 Urinary catheterization as the cause of abnormal reaction of the patient, or of later complication, without mention of misadventure at the time of the procedure; N40.1 Benign prostatic hyperplasia with lower urinary tract symptoms; R33.8 Other retention of urine; G80.9 Cerebral palsy, unspecified; I10 Essential (primary) hypertension; E11.9 Type 2 diabetes mellitus without complications; Z79.4 Long term (current) use of insulin; Z79.82 Long term (current) use of aspirin; Z87.891 Personal history of nicotine dependence
CPT/HCPCS: 51798; 99283; 99284

== ENCOUNTER 2020-12-14 01:27 | Outpatient (CLI) | payer MEDICARE, MEDICAID | END 2020-12-14 01:28 | disposition critical access hospital (66) | LOC: EMS 01:27 | DX: T83.9XXA Unspecified complication of genitourinary prosthetic device, implant and graft, initial encounter (principal); R33.9 Retention of urine, unspecified | CPT/HCPCS: A0425; A0429 ==

== ENCOUNTER 2020-12-14 01:45 | Emergency (ER) | payer MEDICARE, MEDICAID ==
--- NOTE | 2020-12-14 02:17 | ED Physician Documentation ---
PD HPI MALE - Stated complaint Stated Complaint: CATHETER PROBLEM - Chief complaint Chief Complaint: General - History obtained from History obtained from: Patient - History of Present Illness Timing - onset: Today Timing - duration: Hours Timing - details: Abrupt onset, Still present Associated symptoms: Unable to urinate (getting some urine out around the lara and not through), Lara problem PD HPI MALE CONTRIB FACTORS: Indwelling catheter Similar symptoms before: Diagnosis (has had lara clog at times in the past. Had infection a month ago, and frequent positive cultures.) Review of Systems Constitutional: denies: Fever, Chills GI: reports: Abdominal Pain (bladder area fullness). denies: Nausea, Vomiting PD PAST MEDICAL HISTORY - Past Medical History Past Medical History: Yes Cardiovascular: Hypertension, High cholesterol Respiratory: Pneumonia Neuro: Dementia, Cerebral palsy, CVA, Other Endocrine/Autoimmune: Type 2 diabetes GI: None : Benign prostate hypertrophy, Retention, Chronic bladder infection, Renal insuffiency, Indwelling catheter HEENT: Chronic vision loss Psych: Depression, Anxiety Musculoskeletal: Fatigue, Chronic back pain Derm: None - Past Surgical History Past Surgical History: Yes - Present Medications Home Medications: Ambulatory Orders Medication Instructions Recorded Confirmed Doxazosin [Cardura] 1 mg PO QPM #30 tablet 08/27/18 10/30/20 Tamsulosin [Flomax] 0.4 mg PO DAILY #30 capsule 08/27/18 10/30/20 Insulin Glargine,Hum.rec.anlog 24 unit SUBQ DAILY 03/06/19 10/30/20 [Basaglar Kwikpen U-100] Acetaminophen 650 mg PO Q4HR PRN 03/07/19 10/30/20 Aspirin 325 mg PO DAILY 03/07/19 10/30/20 Atorvastatin Calcium 80 mg PO QPM 03/07/19 10/30/20 Clopidogrel [Plavix] 75 mg PO DAILY 03/07/19 10/30/20 Ondansetron HCl [Zofran] 8 mg PO Q8H PRN 03/07/19 10/30/20 Thiamine [Vitamin B-1] 100 mg PO DAILY 03/07/19 10/30/20 Lisinopril [Zestril] 20 mg DAILY 09/03/19 10/30/20 Citalopram [CeleXA] 20 mg PO DAILY 12/16/19 10/30/20 Calcium Carbonate [Tums (Calcium 500 - 1,000 mg PO Q2H 10/30/20 10/30/20 Carbonate 500mg)] Insulin Aspart [NovoLOG] 2 - 12 unit SUBQ TIDWM 10/30/20 10/30/20 Insulin Aspart [NovoLOG] 7 unit SUBQ TIDWM 10/30/20 10/30/20 Omeprazole [PriLOSEC] 20 mg PO DAILY 10/30/20 10/30/20 Cefpodoxime Proxetil [Vantin] 200 mg PO BID 11 Days #44 tablet 11/01/20 - Allergies Allergies/Adverse Reactions: Allergies Allergy/AdvReac Type Severity Reaction Status Date / Time No Known Drug Allergies Allergy Verified 12/14/20 01:51 - Social History Does the pt smoke?: No Smoking Status: Never smoker Does the pt drink ETOH?: No Does the pt have substance abuse?: Yes - Immunizations Immunizations are current?: Yes - POLST Patient has POLST: Yes POLST Status: Full Code PD ED PE NORMAL - Vitals Vital signs reviewed: Yes - General General: Alert and oriented X 3, Well developed/nourished - Abdomen Abdomen: Normal bowel sounds, Soft, Other (fullness and tender in suprapubic area. ) - Male Male : Other (lara in place with normal appearing meatus. ) - Back Back: No CVA TTP - Derm Derm: Normal color, Warm and dry Results - Vitals Vitals: Vital Signs - 24 hr 12/14/20 01:51 Temperature 36.7 C Heart Rate 92 Respiratory 16 Rate Blood Pressure 109/81 H O2 Saturation 94 Oxygen O2 Source [With Activity] Nasal cannula O2 Source Room air PD MEDICAL DECISION MAKING - ED course Complexity details: re-evaluated patient (lara did not flush easily so nursing replaced it with over 900 ml out. Pt feeling much better. ), considered differential, d/w patient Departure - Departure Disposition: 01 Home, Self Care Clinical Impression: Urinary catheter dysfunction Qualifiers: Encounter type: initial encounter Qualified Code(s): T83.018A - Breakdown (mechanical) of other urinary catheter, initial encounter Condition: Stable Record reviewed to determine appropriate education?: Yes Follow-Up: Lee Ignacio DO [Primary Care Provider] - Comments: Continue with usual Lara catheter care. Recheck if problems.
[2020-12-14 08:10] VITALS: BP 141/80
== END 2020-12-14 08:16 | disposition home or self-care (01) ==
LOC: EDUNIT# → ED 01:45
DX: T83.011A Breakdown (mechanical) of indwelling urethral catheter, initial encounter (principal); Y73.8 Miscellaneous gastroenterology and urology devices associated with adverse incidents, not elsewhere classified; I10 Essential (primary) hypertension; E11.9 Type 2 diabetes mellitus without complications; Z79.4 Long term (current) use of insulin
CPT/HCPCS: 51702; 51798; 99283

== ENCOUNTER 2021-02-16 11:31 | Outpatient (CLI) | payer MEDICARE, MEDICAID | END 2021-02-16 11:32 | disposition critical access hospital (66) | LOC: EMS 11:31 | DX: T83.091A Other mechanical complication of indwelling urethral catheter, initial encounter (principal) | CPT/HCPCS: A0425; A0429 ==

== ENCOUNTER 2021-02-16 12:02 | Emergency (ER) | payer MEDICARE, MEDICAID ==
[2021-02-16 12:02] VITALS: BP 134/82
[2021-02-16] MEDS ORDERED: LIDOCAINE JELLY 2% 6 ML JEL.PF.APP TOP STA (14:04)
[2021-02-16] MEDS ORDERED: LIDOCAINE VISCOUS 2% 15 ML UDC MM STA (14:04)
--- NOTE | 2021-02-16 14:20 | Ultrasound Report ---
PROCEDURE: Bladder INDICATIONS: Bryant catheter balloon not deflating. TECHNIQUE: Real-time sonographic images of the bladder were obtained COMPARISON: None. FINDINGS: There is urinary bladder wall thickening. Air is present in the urinary bladder. Debris is present on the Bryant catheter balloon which appears to be deflated. There is prostatic enlargement. IMPRESSION: Bryant catheter balloon appears to be deflated, with some debris present on the balloon and catheter d istal to the balloon. Reviewed by: Jerry Boss MD on 02/16/2021 2:19 PM PDT Approved by: Jerry Boss MD on 02/16/2021 2:19 PM PDT Station ID: [id number]
--- NOTE | 2021-02-16 15:07 | ED Physician Documentation ---
History of Present Illness - Stated complaint Stated Complaint: CATH ISSUE - Chief complaint Chief Complaint: General - History obtained from History obtained from: Patient, EMS - Additonal information Additional information: Patient is brought to the emergency department for chief complaint of catheter not draining and staff at [facility] could not remove it. Patient states that he does not have any lower abdominal pain. No reported fevers from his [facility]. Patient has a longstanding history of benign prostatic hypertrophy and urinary retention, and has been seen multiple times in the emergency department for complications related to his catheter. He denies any other complaints at this time. His urologist on record is Dr. Caldwell of [facility], though he according to their office has not been seen there in over 3 years. Review of Systems Ten Systems: 10 systems reviewed and negative Constitutional: reports: Reviewed and negative Eyes: reports: Reviewed and negative Ears: reports: Reviewed and negative Nose: reports: Reviewed and negative Throat: reports: Reviewed and negative Cardiac: reports: Reviewed and negative Respiratory: reports: Reviewed and negative GI: reports: Reviewed and negative : reports: Unable to Void, Bryant Problem Skin: reports: Reviewed and negative Musculoskeletal: reports: Reviewed and negative Neurologic: reports: Reviewed and negative Psychiatric: reports: Reviewed and negative Endocrine: reports: Reviewed and negative Immunocompromised: reports: Reviewed and negative PD PAST MEDICAL HISTORY - Past Medical History Cardiovascular: Hypertension, High cholesterol Respiratory: Pneumonia Neuro: Dementia, Cerebral palsy, CVA, Other Endocrine/Autoimmune: Type 2 diabetes GI: None : Benign prostate hypertrophy, Retention, Chronic bladder infection, Renal insuffiency, Indwelling catheter HEENT: Chronic vision loss Psych: Depression, Anxiety Musculoskeletal: Fatigue, Chronic back pain Derm: None - Past Surgical History Past Surgical History: Yes - Present Medications Home Medications: Ambulatory Orders Medication Instructions Recorded Confirmed Doxazosin [Cardura] 1 mg PO QPM #30 tablet 08/27/18 10/30/20 Tamsulosin [Flomax] 0.4 mg PO DAILY #30 capsule 08/27/18 10/30/20 Insulin Glargine,Hum.rec.anlog 24 unit SUBQ DAILY 03/06/19 10/30/20 [Basaglar Kwikpen U-100] Acetaminophen 650 mg PO Q4HR PRN 03/07/19 10/30/20 Aspirin 325 mg PO DAILY 03/07/19 10/30/20 Atorvastatin Calcium 80 mg PO QPM 03/07/19 10/30/20 Clopidogrel [Plavix] 75 mg PO DAILY 03/07/19 10/30/20 Ondansetron HCl [Zofran] 8 mg PO Q8H PRN 03/07/19 10/30/20 Thiamine [Vitamin B-1] 100 mg PO DAILY 03/07/19 10/30/20 Lisinopril [Zestril] 20 mg DAILY 09/03/19 10/30/20 Citalopram [CeleXA] 20 mg PO DAILY 12/16/19 10/30/20 Calcium Carbonate [Tums (Calcium 500 - 1,000 mg PO Q2H 10/30/20 10/30/20 Carbonate 500mg)] Insulin Aspart [NovoLOG] 2 - 12 unit SUBQ TIDWM 10/30/20 10/30/20 Insulin Aspart [NovoLOG] 7 unit SUBQ TIDWM 10/30/20 10/30/20 Omeprazole [PriLOSEC] 20 mg PO DAILY 10/30/20 10/30/20 Cefpodoxime Proxetil [Vantin] 200 mg PO BID 11 Days #44 tablet 11/01/20 - Allergies Allergies/Adverse Reactions: Allergies Allergy/AdvReac Type Severity Reaction Status Date / Time No Known Drug Allergies Allergy Verified 12/14/20 01:51 - Social History Does the pt smoke?: No Smoking Status: Never smoker Does the pt drink ETOH?: No Does the pt have substance abuse?: Yes - Immunizations Immunizations are current?: Yes - POLST Patient has POLST: Yes POLST Status: Full Code PD ED PE NORMAL - Vitals Vital signs reviewed: Yes - General General: No acute distress, Well developed/nourished, Other (Alert, grossly oriented.) - HEENT HEENT: Atraumatic, PERRL, EOMI, Moist mucous membranes - Neck Neck: Supple, no meningeal sign - Cardiac Cardiac: RRR, No murmur, Strong equal pulses - Respiratory Respiratory: No respiratory distress, Clear bilaterally - Abdomen Abdomen: Soft, Non tender, Non distended - Male Male : Other (Bryant catheter in place, but not able to be advanced. Blood at urethral meatus. Heavy sedimentation in tubing without movement of urine.) - Derm Derm: Warm and dry - Extremities Extremities: No deformity - Neuro Neuro: Alert and oriented X 3 - Psych Psych: Normal mood, Normal affect Results - Vitals Vitals: Vital Signs - 24 hr 02/16/21 11:57 Temperature 36.5 C Heart Rate 67 Respiratory 15 Rate Blood Pressure 134/82 H O2 Saturation 98 Oxygen O2 Source [With Activity] Nasal cannula O2 Source Room air PD MEDICAL DECISION MAKING - ED course Complexity details: reviewed results, re-evaluated patient, considered differential, d/w patient ED course: Initially, we were not able to withdraw air or fluid from the catheter balloon port. This raised concern that the valve was not working properly. We were ultimately able to advance the catheter further into the bladder, but still could not pull it out. As such, an ultrasound was performed and showed some crystallization on the end of the catheter without obvious inflation of the balloon. I was concerned that the calcified sedimentation and crystallization was catching and causing the catheter to be unable to be passed out of the urethra. As such, I did speak with PA at Dr. Caldwell's office by the name of Vanessa, who was [place] calls for Dr. Caldwell. I explained the situation and she spoke with Dr. Caldwell, then called me back and stated that Dr. Caldwell's recommendation was to "pull harder". She stated that Dr. Caldwell had advised her that this would not cause any damage to the urethra and that the catheter should be able to be pulled out. I did review some literature was concerned about this approach so I did obtain a second opinion from Dr. Osborne, who was parts counter salesperson at [facility] but also is affiliated with the [facility] group.He did affirm that the catheter should be pulled with as much force as necessary. He stated that even if the catheter breaks and retracts into the bladder that they will "get it out later" and that another catheter should be placed and the broken and left in the bladder. He also did recommend inflating and deflating the balloon if possible to break off some of the encrusted calcifications. I was able to inflate and deflate the balloon a couple of times and then noted that the entire volume of sterile water did not retract from the balloon. With a small amount of pressure of pulling on the catheter, the catheter slid out and was noted that the balloon had burst. The patient tolerated this procedure actually fairly well. He did have a mild amount of blood oozing from his urethral meatus after the procedure, but an 18 [place] coud was able to be passed with good urine output afterward. I discussed with the patient the importance of following up with urology on a regular basis. We have also emphasized to the patient's care facility the importance of changing the catheter every 30 days, which is also been emphasized by Dr. Osborne, the urologist. Patient is stable for discharge home. Departure - Departure Disposition: 01 Home, Self Care Clinical Impression: Encounter for Bryant catheter replacement Indwelling Bryant catheter calcification Qualifiers: Encounter type: initial encounter Qualified Code(s): T83.89XA - Other specified complication of genitourinary prosthetic devices, implants and grafts, initial encounter Condition: Stable Instructions: ED Catheter Care Bryant Comments: Mr. Sun's Bryant catheter was not only clogged, but heavily calcified on the and. This raises concern for inadequate care of the Bryant. Particularly, the Bryant should be changed no less than once every month to prevent calcium buildup on the tip. This will also decrease the likelihood of clogging of the catheter, and will also make it a lot easier to change the catheter. The case has been discussed with [address] Osborne at [facility], and he has requested that it be emphasized that the catheter be placed replaced every 30 days. As such, you should plan to replace the catheter on March 17. Please be sure this is done to prevent this situation again. Given the sediments that were attached to the tip of the catheter, there would likely be some bleeding from the urethral meatus at the end of the penis for the next day or two. The urologist has also has already stated that this is to be expected, and the patient does not need to be sent back to the emergency department for this. Please call first thing on Monday morning, tomorrow, to make a urology appointment for follow-up for Mr. Sun.
== END 2021-02-16 19:37 | disposition home or self-care (01) ==
LOC: ED 12:02
DX: T83.091A Other mechanical complication of indwelling urethral catheter, initial encounter (principal); Y84.6 Urinary catheterization as the cause of abnormal reaction of the patient, or of later complication, without mention of misadventure at the time of the procedure; N40.1 Benign prostatic hyperplasia with lower urinary tract symptoms; R33.8 Other retention of urine; G80.9 Cerebral palsy, unspecified; I10 Essential (primary) hypertension; E11.9 Type 2 diabetes mellitus without complications; Z79.4 Long term (current) use of insulin; Z86.73 Personal history of transient ischemic attack (TIA), and cerebral infarction without residual deficits; Z79.02 Long term (current) use of antithrombotics/antiplatelets
CPT/HCPCS: 51703

== ENCOUNTER 2021-02-16 19:38 | Outpatient (CLI) | payer MEDICARE, MEDICAID | END 2021-02-16 19:39 | disposition home or self-care (01) | LOC: EMS 19:38 | PROVIDERS: ATTEND Emergency Medicine | DX: F03.90 Unspecified dementia, unspecified severity, without behavioral disturbance, psychotic disturbance, mood disturbance, and anxiety (principal) | CPT/HCPCS: A0425; A0428 ==

== ENCOUNTER 2021-04-26 16:36 | Outpatient (CLI) | payer MEDICARE, MEDICAID | END 2021-04-26 16:37 | disposition critical access hospital (66) | LOC: EMS 16:36 | DX: T83.091A Other mechanical complication of indwelling urethral catheter, initial encounter (principal) | CPT/HCPCS: A0425; A0429 ==

== ENCOUNTER 2021-04-26 16:54 | Emergency (ER) | payer MEDICARE, MEDICAID ==
[2021-04-26] MEDS ORDERED: LIDOCAINE 2% URO-JET 5 ML SYRINGE UR STA (17:28)
--- NOTE | 2021-04-26 17:43 | ED Physician Documentation ---
History of Present Illness - Stated complaint Stated Complaint: CATH ISSUE - Chief complaint Chief Complaint: General - History obtained from History obtained from: Patient - Additonal information Additional information: Patient is brought to the emergency department chief complaint of could not get catheter out at home. The patient has come from [facility], where he is cared for, due to memory issues. He has a chronic indwelling Bryant catheter which is changed every 2 weeks, due to severe calcification that form rapidly. Today, the nurse on duty tried to remove the catheter and could not, so patient was sent here. Patient denies any complaints at this time. According to medics the staff reported the catheter has been draining but is due for change and simply could not do it. No fevers or chills. Patient's only complaint is that he is hungry. No other complaints at this time. Review of Systems Ten Systems: 10 systems reviewed and negative Constitutional: reports: Reviewed and negative Eyes: reports: Reviewed and negative Ears: reports: Reviewed and negative Nose: reports: Reviewed and negative Throat: reports: Reviewed and negative Cardiac: reports: Reviewed and negative Respiratory: reports: Reviewed and negative GI: reports: Reviewed and negative : reports: Reviewed and negative Skin: reports: Reviewed and negative Musculoskeletal: reports: Reviewed and negative Neurologic: reports: Reviewed and negative Psychiatric: reports: Reviewed and negative Endocrine: reports: Reviewed and negative Immunocompromised: reports: Reviewed and negative PD PAST MEDICAL HISTORY - Past Medical History Cardiovascular: Hypertension, High cholesterol Respiratory: Pneumonia Neuro: Dementia, Cerebral palsy, CVA, Other Endocrine/Autoimmune: Type 2 diabetes GI: None : Benign prostate hypertrophy, Retention, Chronic bladder infection, Renal insuffiency, Indwelling catheter HEENT: Chronic vision loss Psych: Depression, Anxiety Musculoskeletal: Fatigue, Chronic back pain Derm: None - Past Surgical History Past Surgical History: Yes - Present Medications Home Medications: Ambulatory Orders Medication Instructions Recorded Confirmed Doxazosin [Cardura] 1 mg PO QPM #30 tablet 08/27/18 10/30/20 Tamsulosin [Flomax] 0.4 mg PO DAILY #30 capsule 08/27/18 10/30/20 Insulin Glargine,Hum.rec.anlog 24 unit SUBQ DAILY 03/06/19 10/30/20 [Basaglar Kwikpen U-100] Acetaminophen 650 mg PO Q4HR PRN 03/07/19 10/30/20 Aspirin 325 mg PO DAILY 03/07/19 10/30/20 Atorvastatin Calcium 80 mg PO QPM 03/07/19 10/30/20 Clopidogrel [Plavix] 75 mg PO DAILY 03/07/19 10/30/20 Ondansetron HCl [Zofran] 8 mg PO Q8H PRN 03/07/19 10/30/20 Thiamine [Vitamin B-1] 100 mg PO DAILY 03/07/19 10/30/20 Lisinopril [Zestril] 20 mg DAILY 09/03/19 10/30/20 Citalopram [CeleXA] 20 mg PO DAILY 12/16/19 10/30/20 Calcium Carbonate [Tums (Calcium 500 - 1,000 mg PO Q2H 10/30/20 10/30/20 Carbonate 500mg)] Insulin Aspart [NovoLOG] 2 - 12 unit SUBQ TIDWM 10/30/20 10/30/20 Insulin Aspart [NovoLOG] 7 unit SUBQ TIDWM 10/30/20 10/30/20 Omeprazole [PriLOSEC] 20 mg PO DAILY 10/30/20 10/30/20 Cefpodoxime Proxetil [Vantin] 200 mg PO BID 11 Days #44 tablet 11/01/20 - Allergies Allergies/Adverse Reactions: Allergies Allergy/AdvReac Type Severity Reaction Status Date / Time No Known Drug Allergies Allergy Verified 04/26/21 16:59 - Social History Does the pt smoke?: No Smoking Status: Never smoker Does the pt drink ETOH?: No Does the pt have substance abuse?: Yes - Immunizations Immunizations are current?: Yes - POLST Patient has POLST: Yes POLST Status: Full Code PD ED PE NORMAL - Vitals Vital signs reviewed: Yes - General General: No acute distress, Well developed/nourished, Other (Patient is alert and answers questions appropriately.) - HEENT HEENT: Atraumatic, PERRL, EOMI, Moist mucous membranes - Neck Neck: Supple, no meningeal sign - Respiratory Respiratory: No respiratory distress - Abdomen Abdomen: Soft, Non tender, Non distended - Male Male : Other (Bryant catheter in place with urine in bag. No blood or discharge around the tube. No penile lesions.) - Derm Derm: Normal color, Warm and dry, No rash - Extremities Extremities: No deformity, No edema, No calf tenderness / cord - Neuro Neuro: Other (Grossly intact. Patient is alert and appropriate.) - Psych Psych: Normal mood, Normal affect Results - Vitals Vitals: Vital Signs - 24 hr 04/26/21 16:59 Temperature 36.0 C L Heart Rate 96 Respiratory 18 Rate Blood Pressure 118/100 H O2 Saturation 100 Oxygen O2 Source [With Activity] Nasal cannula O2 Source Room air PD MEDICAL DECISION MAKING - ED course Complexity details: considered differential, d/w patient ED course: Bryant catheter was removed in the emergency department by myself after nursing staff had trouble getting it out. Scant calcifications were noted to be stuck to both the balloon and the catheter tip. Catheter was replaced and found to be draining well. The patient is stable for discharge back to [facility]. Departure - Departure Disposition: 01 Home, Self Care Clinical Impression: Encounter for Bryant catheter replacement Condition: Stable Instructions: ED Catheter Care Bryant Comments: The Bryant catheter was replaced today.
[2021-04-26 18:35] VITALS: BP 132/93
== END 2021-04-26 18:47 | disposition home or self-care (01) ==
LOC: EDUNIT# → ED 16:54
DX: T83.091A Other mechanical complication of indwelling urethral catheter, initial encounter (principal); Y73.8 Miscellaneous gastroenterology and urology devices associated with adverse incidents, not elsewhere classified; Z46.6 Encounter for fitting and adjustment of urinary device; I10 Essential (primary) hypertension; F03.90 Unspecified dementia, unspecified severity, without behavioral disturbance, psychotic disturbance, mood disturbance, and anxiety; N40.1 Benign prostatic hyperplasia with lower urinary tract symptoms; R33.8 Other retention of urine
CPT/HCPCS: 99281; 99283

== ENCOUNTER 2021-04-26 18:51 | Outpatient (CLI) | payer MEDICARE, MEDICAID | END 2021-04-26 18:52 | disposition home or self-care (01) | LOC: EMS 18:51 | PROVIDERS: ATTEND Emergency Medicine | DX: F03.90 Unspecified dementia, unspecified severity, without behavioral disturbance, psychotic disturbance, mood disturbance, and anxiety (principal); Z96.0 Presence of urogenital implants | CPT/HCPCS: A0425; A0428 ==

== ENCOUNTER 2021-09-21 09:17 | Outpatient (CLI) | payer MEDICARE, MEDICAID | END 2021-09-21 09:18 | disposition critical access hospital (66) | LOC: EMS 09:17 | DX: R82.90 Unspecified abnormal findings in urine (principal); T83.091A Other mechanical complication of indwelling urethral catheter, initial encounter | CPT/HCPCS: A0425; A0429 ==

== ENCOUNTER 2021-09-21 09:33 | Emergency (ER) | payer MEDICARE, MEDICAID ==
[2021-09-21] MEDS ORDERED: LIDOCAINE 1% 2 ML VIAL MC ONE (09:38)
[2021-09-21] MEDS ORDERED: cefTRIAXone 1 GM VIAL IM STA (09:38)
--- NOTE | 2021-09-21 09:43 | ED Physician Documentation ---
PD HPI MALE - Stated complaint Stated Complaint: CATH ISSUE - History obtained from History obtained from: Patient, EMS - History of Present Illness Timing - onset: Today Timing - duration: Days (1) Pain level max: 0 Pain level now: 0 Associated symptoms: Indwelling catheter - Additional information Additional information: Patient is a 66-year-old male with a chronic Bryant catheter in place. He was sent in today due to a purple discoloration of the urine bag and draining urine. No fevers. No vomiting. Nothing makes it better or worse. Just noticed today. He lives at [facility]. Review of Systems Constitutional: denies: Fever GI: denies: Vomiting, Diarrhea Skin: denies: Rash Musculoskeletal: denies: Neck pain, Back pain Neurologic: denies: Headache PD PAST MEDICAL HISTORY - Past Medical History Cardiovascular: Hypertension, High cholesterol Respiratory: Pneumonia Neuro: Dementia, Cerebral palsy, CVA, Other Endocrine/Autoimmune: Type 2 diabetes GI: None : Benign prostate hypertrophy, Retention, Chronic bladder infection, Renal insuffiency, Indwelling catheter HEENT: Chronic vision loss Psych: Depression, Anxiety Musculoskeletal: Fatigue, Chronic back pain Derm: None - Past Surgical History Past Surgical History: Yes - Present Medications Home Medications: Ambulatory Orders Medication Instructions Recorded Confirmed Doxazosin [Cardura] 1 mg PO QPM #30 tablet 08/27/18 09/21/21 Tamsulosin [Flomax] 0.4 mg PO DAILY #30 capsule 08/27/18 09/21/21 Insulin Glargine,Hum.rec.anlog 24 unit SUBQ DAILY 03/06/19 09/21/21 [Basaglar Luisikpen U-100] Acetaminophen 650 mg PO Q4HR PRN 03/07/19 09/21/21 Aspirin 325 mg PO DAILY 03/07/19 09/21/21 Atorvastatin Calcium 80 mg PO QPM 03/07/19 09/21/21 Clopidogrel [Plavix] 75 mg PO DAILY 03/07/19 09/21/21 Thiamine [Vitamin B-1] 100 mg PO DAILY 03/07/19 09/21/21 ondansetron HCL [Zofran] 8 mg PO Q8H PRN 03/07/19 09/21/21 Lisinopril [Zestril] 20 mg DAILY 09/03/19 09/21/21 Citalopram [CeleXA] 20 mg PO DAILY 12/16/19 09/21/21 Calcium Carbonate [Tums (Calcium 500 - 1,000 mg PO Q2H 10/30/20 09/21/21 Carbonate 500mg)] Insulin Aspart [NovoLOG] 2 - 12 unit SUBQ TIDWM 10/30/20 09/21/21 Insulin Aspart [NovoLOG] 7 unit SUBQ TIDWM 10/30/20 09/21/21 Omeprazole [PriLOSEC] 20 mg PO DAILY 10/30/20 09/21/21 Amlodipine Besylate [Norvasc] 10 mg PO DAILY 09/21/21 09/21/21 Cefdinir 300 mg PO BID #20 cap 09/21/21 - Allergies Allergies/Adverse Reactions: Allergies Allergy/AdvReac Type Severity Reaction Status Date / Time No Known Drug Allergies Allergy Verified 09/21/21 09:43 - Social History Does the pt smoke?: No Smoking Status: Never smoker Does the pt drink ETOH?: No Does the pt have substance abuse?: Yes - Immunizations Immunizations are current?: Yes - POLST Patient has POLST: Yes POLST Status: Full Code PD ED PE NORMAL - Vitals Vital signs reviewed: Yes - General General: Alert and oriented X 3, No acute distress - HEENT HEENT: Moist mucous membranes - Neck Neck: Supple, no meningeal sign - Cardiac Cardiac: RRR - Respiratory Respiratory: No respiratory distress, Clear bilaterally - Abdomen Abdomen: Soft, Non tender, Non distended - Derm Derm: Warm and dry - Neuro Neuro: Alert and oriented X 3 - Psych Psych: Normal mood, Normal affect Results - Vitals Vitals: Vital Signs - 24 hr 09/21/21 09/21/21 09:40 11:24 Temperature 36.9 C 36.6 C Heart Rate 78 70 Respiratory 16 16 Rate Blood Pressure 119/72 114/68 O2 Saturation 97 98 Oxygen O2 Source [With Activity] Nasal cannula O2 Source Room air PD MEDICAL DECISION MAKING - ED course Complexity details: considered differential, d/w patient ED course: 66-year-old male with purple urine bag syndrome. Urine culture was obtained. Will place on third-generation cephalosporin. We will await urine culture to see if any antibiotics need to be changed. No evidence of sepsis. Patient counseled regarding signs and symptoms for which I believe and urgent re- evaluation would be necessary. Patient with good understanding of and agreement to plan and is comfortable going home at this time This document was made in part using voice recognition software. While efforts are made to proofread this document, sound alike and grammatical errors may occur. Departure - Departure Disposition: 01 Home, Self Care Clinical Impression: Purple urine bag syndrome Condition: Good Instructions: ED UTI Cystitis Male Follow-Up: your,doctor in 1 week [Other] Prescriptions: Cefdinir 300 mg PO BID #20 cap Comments: Your prescription was sent to [facility]. Please follow-up with your doctor for further care. The purple discoloration should clear with resolution of the infection. Discharge Date/Time: 09/21/21 11:26
[2021-09-21 11:26] VITALS: BP 114/68
== END 2021-09-21 11:26 | disposition home or self-care (01) ==
LOC: EDUNIT# → ED 09:33
DX: T83.518A Infection and inflammatory reaction due to other urinary catheter, initial encounter (principal); Y73.8 Miscellaneous gastroenterology and urology devices associated with adverse incidents, not elsewhere classified; I10 Essential (primary) hypertension; N40.1 Benign prostatic hyperplasia with lower urinary tract symptoms; R33.8 Other retention of urine; E11.9 Type 2 diabetes mellitus without complications; Z79.4 Long term (current) use of insulin
CPT/HCPCS: 87077; 87086; 87181; 96372; 99282; 99283

== ENCOUNTER 2021-09-21 11:38 | Outpatient (CLI) | payer MEDICARE, MEDICAID | END 2021-09-21 11:39 | disposition home or self-care (01) | LOC: EMS 11:38 | PROVIDERS: ATTEND Emergency Medicine | DX: N39.0 Urinary tract infection, site not specified (principal); F41.0 Panic disorder [episodic paroxysmal anxiety]; F03.90 Unspecified dementia, unspecified severity, without behavioral disturbance, psychotic disturbance, mood disturbance, and anxiety | CPT/HCPCS: A0425; A0428 ==

== ENCOUNTER 2021-09-21 14:15 | Outpatient (CLI) | payer MEDICARE, MEDICAID | END 2021-09-21 14:16 | disposition short-term general hospital (02) | LOC: EMS 14:15 | DX: T83.091A Other mechanical complication of indwelling urethral catheter, initial encounter (principal) | CPT/HCPCS: A0425; A0429 ==

== ENCOUNTER 2022-02-11 10:11 | Outpatient (CLI) | payer MEDICARE, MEDICAID ==
[2022-02-11 10:31] LABS: BILIRUBIN,URINE NEGATIVE (NEGATIVE); GLUCOSE, URINE (UA) NEGATIVE (NEGATIVE); KETONES,URINE (UA) NEGATIVE (NEGATIVE); LEUKOCYTE ESTERASE, URINE MODERATE (NEGATIVE); NITRITE,URINE POSITIVE (NEGATIVE); OCCULT BLOOD,URINE TRACE-INTA (NEGATIVE); PROTEIN,URINE NEGATIVE (NEGATIVE); UROBILINOGEN,URINE 0.2 (NORMAL) E.U./dL (NORMAL)
[2022-02-11 10:48] LABS: CLARITY,URINE CLOUDY (CLEAR); SQUAMOUS EPITHELIAL CELL,UR RARE Squamous (<= Few)
[2022-02-11 10:49] LABS: AMORPHOUS SEDIMENT,UR Few /LPF; BACTERIA,URINE Rare /HPF (None Seen)
== END 2022-02-11 10:12 | disposition home or self-care (01) ==
LOC: LAB.R 10:11
PROVIDERS: ATTEND Internal Medicine
DX: N39.0 Urinary tract infection, site not specified (principal)
CPT/HCPCS: 81001; 87077; 87086; 87181

== ENCOUNTER 2022-03-10 15:13 | Outpatient (CLI) | payer MEDICARE, MEDICAID | END 2022-03-10 15:14 | disposition critical access hospital (66) | LOC: EMS 15:13 | DX: R55 Syncope and collapse (principal) | CPT/HCPCS: A0425; A0429 ==

== ENCOUNTER 2022-03-10 15:25 | Emergency (ER) | payer MEDICARE, MEDICAID ==
[2022-03-10] MEDS ORDERED: SODIUM CHLORIDE 0.9% 1,000 ML IV STA (15:50)
[2022-03-10 16:32] LABS: BASOPHILS % (AUTO) 0.2 %; HCT - HEMATOCRIT 38.2 % (42.0-52.0); HGB - HEMOGLOBIN 11.9 g/dL (14.0-18.0); LYMPHOCYTES # (AUTO) 1.1 10^3/uL (1.5-3.5); LYMPHOCYTES % (AUTO) 13.1 %; MEAN CORPUSCULAR HEMOGLOBIN 29.1 pg (27.0-31.0); MEAN CORPUSCULAR HGB CONC 31.2 g/dL (32.0-36.0); MEAN CORPUSCULAR VOLUME 93.4 fL (80.0-94.0); MEAN PLATELET VOLUME 11.4 fL (7.4-11.4); MONOCYTES # (AUTO) 0.5 10^3/uL (0.0-1.0); MONOCYTES % (AUTO) 5.7 %; NEUTROPHILS # (AUTO) 6.9 10^3/uL (1.5-6.6); NEUTROPHILS % (AUTO) 80.5 %; PLT - PLATELET COUNT 224 10^3/uL (130-450); RED BLOOD COUNT 4.09 10^6/uL (4.70-6.10); RED CELL DISTRIBUTION WIDTH 13.6 % (12.0-15.0); WHITE BLOOD COUNT 8.6 x10^3/uL (4.8-10.8)
[2022-03-10 16:45] LABS: ALBUMIN 3.6 g/dL (3.2-5.5); BILIRUBIN,TOTAL 0.6 mg/dL (0.2-1.0); CALCIUM 9.3 mg/dL (8.5-10.3); CREATININE 1.8 mg/dL (0.6-1.2); POTASSIUM 3.7 mmol/L (3.5-5.0); TOTAL PROTEIN 7.2 g/dL (6.7-8.2)
[2022-03-10 17:30] LABS: CORONAVIRUS 229E-RESP PCR NOT DETECTED; CORONAVIRUS HKU1-RESP PCR NOT DETECTED; CORONAVIRUS NL63-RESP PCR NOT DETECTED; CORONAVIRUS OC43-RESP PCR NOT DETECTED; HUMAN METAPNEUMOVIRUS NOT DETECTED; INFLUENZA A- RESP PCR PANEL NOT DETECTED; INFLUENZA B - RESP PCR PANEL NOT DETECTED; PARAINFLUENZA VIRUS 1 NOT DETECTED; PARAINFLUENZA VIRUS 2 NOT DETECTED; RHINOVIRUS/ENTEROVIRUS NOT DETECTED; SARS-CoV-2 -RESP PCR PANEL NOT DETECTED
[2022-03-10 17:31] LABS: B. PARAPERTUSSIS- RESP PCR PAN NOT DETECTED; B. PERTUSSIS- RESP PCR PANEL NOT DETECTED; C. PNEUMONIAE- RESP PCR PANEL NOT DETECTED; M. PNEUMONIAE- RESP PCR PANEL NOT DETECTED; PARAINFLUENZA VIRUS 3 DETECTED; PARAINFLUENZA VIRUS 4 NOT DETECTED; RSV- RESP PCR PANEL NOT DETECTED
[2022-03-10 17:38] VITALS: BP 102/80
--- NOTE | 2022-03-10 17:49 | ED Physician Documentation ---
History of Present Illness - Stated complaint Stated Complaint: SYNCOPE - Chief complaint Chief Complaint: Neuro - History obtained from History obtained from: Patient, EMS - Additonal information Additional information: The patient is brought to the emergency department by EMS for chief complaint of syncopal episode at [facility], where he lives. The patient had seemed to be fine during the day then was noted to slump over. He denies any complaints at this time. He states he never had any chest pain or shortness of breath. He does not really know why he is here and does not remember the syncopal episode. The patient denies any vomiting or diarrhea recently. No palpitations. No chest pain or abdominal pain. He denies any dysuria or sense of fever and chills. No other complaints at this time. Review of Systems Ten Systems: 10 systems reviewed and negative Constitutional: reports: Reviewed and negative Eyes: reports: Reviewed and negative Ears: reports: Reviewed and negative Nose: reports: Reviewed and negative Throat: reports: Reviewed and negative Cardiac: reports: Reviewed and negative Respiratory: reports: Reviewed and negative GI: reports: Reviewed and negative : reports: Reviewed and negative Skin: reports: Reviewed and negative Musculoskeletal: reports: Reviewed and negative Neurologic: reports: Reviewed and negative Psychiatric: reports: Reviewed and negative Endocrine: reports: Reviewed and negative Immunocompromised: reports: Reviewed and negative PD PAST MEDICAL HISTORY - Past Medical History Past Medical History: Yes Cardiovascular: Hypertension, High cholesterol Respiratory: Pneumonia Neuro: Dementia, Cerebral palsy, CVA, Other Endocrine/Autoimmune: Type 2 diabetes GI: None : Benign prostate hypertrophy, Retention, Chronic bladder infection, Renal insuffiency, Indwelling catheter HEENT: Chronic vision loss Psych: Depression, Anxiety Musculoskeletal: Fatigue, Chronic back pain Derm: None - Past Surgical History Past Surgical History: Yes - Present Medications Home Medications: Ambulatory Orders Medication Instructions Recorded Confirmed Doxazosin [Cardura] 1 mg PO QPM #30 tablet 08/27/18 09/21/21 Tamsulosin [Flomax] 0.4 mg PO DAILY #30 capsule 08/27/18 09/21/21 Insulin Glargine,Hum.rec.anlog 24 unit SUBQ DAILY 03/06/19 09/21/21 [Basaglar Kwikpen U-100] Acetaminophen 650 mg PO Q4HR PRN 03/07/19 09/21/21 Aspirin 325 mg PO DAILY 03/07/19 09/21/21 Atorvastatin Calcium 80 mg PO QPM 03/07/19 09/21/21 Clopidogrel [Plavix] 75 mg PO DAILY 03/07/19 09/21/21 Thiamine [Vitamin B-1] 100 mg PO DAILY 03/07/19 09/21/21 ondansetron HCL [Zofran] 8 mg PO Q8H PRN 03/07/19 09/21/21 Lisinopril [Zestril] 20 mg DAILY 09/03/19 09/21/21 Citalopram [CeleXA] 20 mg PO DAILY 12/16/19 09/21/21 Calcium Carbonate [Tums (Calcium 500 - 1,000 mg PO Q2H 10/30/20 09/21/21 Carbonate 500mg)] Insulin Aspart [NovoLOG] 2 - 12 unit SUBQ TIDWM 10/30/20 09/21/21 Insulin Aspart [NovoLOG] 7 unit SUBQ TIDWM 10/30/20 09/21/21 Omeprazole [PriLOSEC] 20 mg PO DAILY 10/30/20 09/21/21 Amlodipine Besylate [Norvasc] 10 mg PO DAILY 09/21/21 09/21/21 Cefdinir 300 mg PO BID #20 cap 09/21/21 - Allergies Allergies/Adverse Reactions: Allergies Allergy/AdvReac Type Severity Reaction Status Date / Time No Known Drug Allergies Allergy Verified 09/21/21 09:43 - Social History Does the pt smoke?: No Smoking Status: Never smoker Does the pt drink ETOH?: No Does the pt have substance abuse?: Yes - Immunizations Immunizations are current?: Yes - POLST Patient has POLST: Yes POLST Status: Full Code PD ED PE NORMAL - Vitals Vital signs reviewed: Yes - General General: No acute distress, Well developed/nourished, Other (Alert, answering questions coherently but confused.) - HEENT HEENT: Atraumatic, PERRL, EOMI, Moist mucous membranes - Neck Neck: Supple, no meningeal sign - Cardiac Cardiac: RRR, No murmur - Respiratory Respiratory: No respiratory distress, Clear bilaterally - Abdomen Abdomen: Soft, Non tender, Non distended - Derm Derm: Normal color, Warm and dry, No rash - Extremities Extremities: No deformity, No edema - Neuro Neuro: Other (Oriented to self and knows she is at [facility], though confused about when he got here. Thinks the year is 1996. States he does not remember who the president is, but states "I didn't vote for him".) - Psych Psych: Normal mood, Normal affect Results - Vitals Vitals: Vital Signs - 24 hr 03/10/22 03/10/22 15:33 17:36 Temperature 36.4 C L Heart Rate 78 75 Respiratory 17 17 Rate Blood Pressure 78/58 L 102/80 O2 Saturation 97 99 Oxygen O2 Source [With Activity] Nasal cannula O2 Source Room air - EKG (time done) 1624 Rate: Rate (enter#) (77) Rhythm: NSR [place]: LAD, Other (Intraventricular conduction delay, borderline.) Intervals: Normal MD QRS: Normal Ischemia: Normal ST segments, Non specific changes Compare to prior EKG: Old EKG unavailable Computer interpretation: Agree with computer - Labs Labs: Laboratory Tests 03/10/22 03/10/22 03/10/22 15:58 16:28 16:28 WBC 8.6 RBC 4.09 L Hgb 11.9 L Hct 38.2 L MCV 93.4 MCH 29.1 MCHC 31.2 L RDW 13.6 Plt Count 224 MPV 11.4 Neut # (Auto) 6.9 H Lymph # (Auto) 1.1 L [place] # (Auto) 0.5 Eos # (Auto) 0.0 Baso # (Auto) 0.0 Absolute Nucleated RBC 0.00 Nucleated RBC % 0.0 Sodium 138 Potassium 3.7 Chloride 104 Carbon Dioxide 22 Anion Gap 12.0 BUN 26 H Creatinine 1.8 H Estimated GFR (MDRD) 38 L Glucose 254 H Lactic Acid Calcium 9.3 Total Bilirubin 0.6 AST 18 ALT 17 Alkaline Phosphatase 74 Total Protein 7.2 Albumin 3.6 Globulin 3.6 Albumin/Globulin Ratio 1.0 Lipase 24 Nasal Adenovirus (PCR) NOT DETECTED Nasal B. parapertussis DNA (PCR) NOT DETECTED Nasal Coronavir 229E PCR NOT DETECTED Nasal Coronavir HKU1 PCR NOT DETECTED Nasal Coronavir NL63 PCR NOT DETECTED Nasal Coronavir OC43 PCR NOT DETECTED Nasal Enterovir/Rhinovir PCR NOT DETECTED Nasal Influenza B PCR NOT DETECTED Nasal Influenza A PCR NOT DETECTED Nasal Parainfluen 1 PCR NOT DETECTED Nasal Parainfluen 2 PCR NOT DETECTED Nasal Parainfluen 3 PCR DETECTED A Nasal Parainfluen 4 PCR NOT DETECTED Nasal RSV (PCR) NOT DETECTED Nasal B.pertussis DNA PCR NOT DETECTED Nasal C.pneumoniae (PCR) NOT DETECTED Raz Human Metapneumo PCR NOT DETECTED Nasal M.pneumoniae (PCR) NOT DETECTED Nasal SARS-CoV-2 (PCR) NOT DETECTED 03/10/22 17:08 WBC RBC Hgb Hct MCV MCH MCHC RDW Plt Count MPV Neut # (Auto) Lymph # (Auto) [place] # (Auto) Eos # (Auto) Baso # (Auto) Absolute Nucleated RBC Nucleated RBC % Sodium Potassium Chloride Carbon Dioxide Anion Gap BUN Creatinine Estimated GFR (MDRD) Glucose Lactic Acid 2.8 H Calcium Total Bilirubin AST ALT Alkaline Phosphatase Total Protein Albumin Globulin Albumin/Globulin Ratio Lipase Nasal Adenovirus (PCR) Nasal B. parapertussis DNA (PCR) Nasal Coronavir 229E PCR Nasal Coronavir HKU1 PCR Nasal Coronavir NL63 PCR Nasal Coronavir OC43 PCR Nasal Enterovir/Rhinovir PCR Nasal Influenza B PCR Nasal Influenza A PCR Nasal Parainfluen 1 PCR Nasal Parainfluen 2 PCR Nasal Parainfluen 3 PCR Nasal Parainfluen 4 PCR Nasal RSV (PCR) Nasal B.pertussis DNA PCR Nasal C.pneumoniae (PCR) Raz Human Metapneumo PCR Nasal M.pneumoniae (PCR) Nasal SARS-CoV-2 (PCR) PD MEDICAL DECISION MAKING - ED course Complexity details: reviewed results, re-evaluated patient, considered differential, d/w patient, d/w family ED course: The patient actually looked fairly good upon arrival, but his initial blood pr essures were in the 60s to 70s systolic. However, his heart rate was normal and he was sitting up in bed. He had difficult peripheral access but ultimately, an IV was able to be placed. The patient was able to receive approximately 200 cc of normal saline through the IV by which time, he had had multiple normal blood pressures. The patient's labs and EKG were unremarkable. He was able to eat, drink, and ambulate in the emergency department and was reported to be at mental baseline per family. I felt he was stable for discharge home. Departure - Departure Disposition: 01 Home, Self Care Clinical Impression: Dehydration, Vasovagal syncope Condition: Stable Instructions: ED Syncope Vasovagal, ED Dehydration Comments: Your labs look good. You were treated with IV fluids and your blood pressure is much better now. Please follow-up with your primary doctor as needed and be sure to drink plenty of water every day.
== END 2022-03-10 18:36 | disposition home or self-care (01) ==
LOC: EDUNIT# → ED 15:25
DX: R55 Syncope and collapse (principal); E86.0 Dehydration; I10 Essential (primary) hypertension; E11.9 Type 2 diabetes mellitus without complications; Z79.4 Long term (current) use of insulin; Z20.822 Contact with and (suspected) exposure to COVID-19
CPT/HCPCS: 36415; 80053; 83605; 83690; 85025; 87633; 93005; 96360; 96361; 99283

== ENCOUNTER 2022-04-04 12:24 | Outpatient (CLI) | payer MEDICARE, MEDICAID ==
[2022-04-04 12:36] LABS: BILIRUBIN,URINE NEGATIVE (NEGATIVE); CLARITY,URINE CLOUDY (CLEAR); GLUCOSE, URINE (UA) NEGATIVE (NEGATIVE); KETONES,URINE (UA) NEGATIVE (NEGATIVE); LEUKOCYTE ESTERASE, URINE MODERATE (NEGATIVE); NITRITE,URINE POSITIVE (NEGATIVE); OCCULT BLOOD,URINE NEGATIVE (NEGATIVE); PROTEIN,URINE TRACE mg/dL (NEGATIVE); UROBILINOGEN,URINE 0.2 (NORMAL) E.U./dL (NORMAL)
[2022-04-04 12:41] LABS: AMORPHOUS SEDIMENT,UR Moderate /LPF; BACTERIA,URINE Moderate /HPF (None Seen); CRYSTALS,URINE 3-5 Triple Phosphate /LPF
[2022-04-04 12:44] LABS: SQUAMOUS EPITHELIAL CELL,UR NONE SEEN (<= Few)
== END 2022-04-04 12:25 | disposition home or self-care (01) ==
LOC: LAB 12:24
PROVIDERS: ATTEND Internal Medicine
DX: R82.90 Unspecified abnormal findings in urine (principal)
CPT/HCPCS: 81001; 87077; 87086; 87181

== ENCOUNTER 2022-05-04 14:23 | Inpatient (IN) | payer MEDICARE, MEDICAID ==
--- NOTE | 2022-05-04 14:33 | ED Physician Documentation ---
PD HPI NVD - Stated complaint Stated Complaint: DIARRHEA/FATIGUE - Chief complaint Chief Complaint: Fever - History obtained from History obtained from: Patient - History of Present Illness Timing - onset: Today (Patient brought by ambulance from [facility] with report of onset of fever. Unclear timing but sounds like last night into today. Patient denies feeling ill yesterday. He actually does not feel ill today.) Timing - duration: Days (1) Timing - details: Abrupt onset Associated symptoms: Fever, Other (Report from caregivers there is some mild diarrhea. No vomiting.). No: Abdominal pain, Loss of appetite Contributing factors: Diabetes. No: Travel Worsened by: No: Moving Similar symptoms before: Has not had sx before Recently seen: Not recently seen Review of Systems Constitutional: reports: Fever Nose: denies: Rhinorrhea / runny nose, Congestion Throat: denies: Sore throat Cardiac: denies: Chest pain / pressure Respiratory: denies: Cough GI: reports: Diarrhea. denies: Abdominal Pain, Abdominal Swelling, Nausea, Vomiting Skin: denies: Rash, Lesions Neurologic: reports: Generalized weakness. denies: Focal weakness, Headache PD PAST MEDICAL HISTORY - Past Medical History Cardiovascular: Hypertension, High cholesterol Respiratory: Pneumonia Neuro: Dementia, Cerebral palsy, CVA, Other Endocrine/Autoimmune: Type 2 diabetes GI: None : Benign prostate hypertrophy, Retention, Chronic bladder infection, Renal insuffiency, Indwelling catheter HEENT: Chronic vision loss Psych: Depression, Anxiety Musculoskeletal: Fatigue, Chronic back pain Derm: None - Past Surgical History Past Surgical History: Yes - Present Medications Home Medications: Ambulatory Orders Medication Instructions Recorded Confirmed Doxazosin [Cardura] 1 mg PO QPM #30 tablet 08/27/18 09/21/21 Tamsulosin [Flomax] 0.4 mg PO DAILY #30 capsule 08/27/18 09/21/21 Insulin Glargine,Hum.rec.anlog 24 unit SUBQ DAILY 03/06/19 09/21/21 [Basaglar Kwikpen U-100] Acetaminophen 650 mg PO Q4HR PRN 03/07/19 09/21/21 Aspirin 325 mg PO DAILY 03/07/19 09/21/21 Atorvastatin Calcium 80 mg PO QPM 03/07/19 09/21/21 Clopidogrel [Plavix] 75 mg PO DAILY 03/07/19 09/21/21 Thiamine [Vitamin B-1] 100 mg PO DAILY 03/07/19 09/21/21 ondansetron HCL [Zofran] 8 mg PO Q8H PRN 03/07/19 09/21/21 Lisinopril [Zestril] 20 mg DAILY 09/03/19 09/21/21 Citalopram [CeleXA] 20 mg PO DAILY 12/16/19 09/21/21 Calcium Carbonate [Tums (Calcium 500 - 1,000 mg PO Q2H 10/30/20 09/21/21 Carbonate 500mg)] Insulin Aspart [NovoLOG] 2 - 12 unit SUBQ TIDWM 10/30/20 09/21/21 Insulin Aspart [NovoLOG] 7 unit SUBQ TIDWM 10/30/20 09/21/21 Omeprazole [PriLOSEC] 20 mg PO DAILY 10/30/20 09/21/21 Amlodipine Besylate [Norvasc] 10 mg PO DAILY 09/21/21 09/21/21 Cefdinir 300 mg PO BID #20 cap 09/21/21 - Allergies Allergies/Adverse Reactions: Allergies Allergy/AdvReac Type Severity Reaction Status Date / Time No Known Drug Allergies Allergy Verified 05/04/22 14:32 - Social History Does the pt smoke?: No Smoking Status: Never smoker Does the pt drink ETOH?: No Does the pt have substance abuse?: Yes - Immunizations Immunizations are current?: Yes - POLST Patient has POLST: Yes POLST Status: Full Code PD ED PE NORMAL - Vitals Vital signs reviewed: Yes - General General: Alert and oriented X 3, No acute distress, Well developed/nourished - HEENT HEENT: Moist mucous membranes, Pharynx benign - Neck Neck: Supple, no meningeal sign, No adenopathy - Cardiac Cardiac: No: RRR (tachycardic) - Respiratory Respiratory: No respiratory distress, Clear bilaterally - Abdomen Abdomen: Soft, Non tender, Non distended. No: Normal bowel sounds (decreased) - Male Male : Other (Bryant catheter coming from the meatus without any signs of redness swelling or discharge. Clear urine in the leg bag.) - Back Back: No CVA TTP - Derm Derm: Normal color, Warm and dry, Other (I was not able to completely rule him by myself but partly rolled him and did not see any sores in the gluteal nor sacral areas.) Results - Vitals Vitals: Vital Signs - 24 hr 05/04/22 05/04/22 14:27 14:56 Temperature 38.6 C H Heart Rate 114 H 118 H Respiratory 26 H 23 Rate Blood Pressure 109/63 106/62 O2 Saturation 97 93 Oxygen O2 Source [With Activity] Nasal cannula O2 Source Room air - Labs Labs: Laboratory Tests 05/04/22 05/04/22 14:40 14:40 WBC 5.4 RBC 3.92 L Hgb 11.6 L Hct 37.2 L MCV 94.9 H MCH 29.6 MCHC 31.2 L RDW 13.8 Plt Count 180 MPV 10.9 Neut # (Auto) 5.2 Lymph # (Auto) 0.2 L [place] # (Auto) 0.0 Eos # (Auto) 0.0 Baso # (Auto) 0.0 Absolute Nucleated RBC 0.00 Nucleated RBC % 0.0 Lactic Acid 4.5 H* PD MEDICAL DECISION MAKING - ED course Complexity details: considered differential (Patient presents with onset of fever. Can check urine via Bryant as well as consider pneumonia, skin infection, viral illnesses. We will check a respiratory panel and chest x-ray. We will check basic labs.), d/w patient ED course: [facility] with a POLST form showing comfort measures. We will direct basic labs towards source of infection with goal of providing source control. He does not have abdominal pain or chest pain. He does not look septic at this time. We will get basic labs, chest x- ray, urine sample and respiratory PCR. Care given to oncoming emergency provider.
[2022-05-04 14:47] LABS: BASOPHILS % (AUTO) 0.2 %; HCT - HEMATOCRIT 37.2 % (42.0-52.0); HGB - HEMOGLOBIN 11.6 g/dL (14.0-18.0); LYMPHOCYTES # (AUTO) 0.2 10^3/uL (1.5-3.5); LYMPHOCYTES % (AUTO) 3.1 %; MEAN CORPUSCULAR HEMOGLOBIN 29.6 pg (27.0-31.0); MEAN CORPUSCULAR HGB CONC 31.2 g/dL (32.0-36.0); MEAN CORPUSCULAR VOLUME 94.9 fL (80.0-94.0); MEAN PLATELET VOLUME 10.9 fL (7.4-11.4); MONOCYTES % (AUTO) 0.4 %; NEUTROPHILS # (AUTO) 5.2 10^3/uL (1.5-6.6); NEUTROPHILS % (AUTO) 96.1 %; PLT - PLATELET COUNT 180 10^3/uL (130-450); RED BLOOD COUNT 3.92 10^6/uL (4.70-6.10); RED CELL DISTRIBUTION WIDTH 13.8 % (12.0-15.0); WHITE BLOOD COUNT 5.4 x10^3/uL (4.8-10.8)
[2022-05-04] MEDS ORDERED: ACETAMINOPHEN 1,000 MG/100 ML 1,000 MG/100 ML BAG IV ONE (14:48)
[2022-05-04] MEDS ORDERED: SODIUM CHLORIDE 0.9% 1,000 ML IV STA ×2 (14:49→15:14)
[2022-05-04 15:06] LABS: LACTIC ACID, VENOUS 4.5 mmol/L (0.5-2.2)
[2022-05-04 15:12] LABS: ALBUMIN 3.6 g/dL (3.2-5.5); BILIRUBIN,TOTAL 1.1 mg/dL (0.2-1.0); CALCIUM 9.2 mg/dL (8.5-10.3); CREATININE 2.6 mg/dL (0.6-1.2); POTASSIUM 3.8 mmol/L (3.5-5.0); TOTAL PROTEIN 7.2 g/dL (6.7-8.2)
--- NOTE | 2022-05-04 15:15 | XRAY Report ---
PROCEDURE: Chest 1 View X-Ray INDICATIONS: chest pain TECHNIQUE: One view of the chest was acquired. COMPARISON: 10/30/2020. FINDINGS: Surgical changes and devices: None. Lungs and pleura: There is pulmonary vascular congestion. No significant pleural effusion. No gross pneumothorax. Mediastinum: Mediastinal contours appear normal. Heart size is enlarged. Bones and chest wall: No suspicious bony lesions. Overlying soft tissues appear unremarkable. IMPRESSION: Finding is suggestive of CHF. Bilateral infrahilar small infiltrate/atelectasis cannot be excluded. N o significant pleural effusion. No gross pneumothorax. Reviewed by: Yoseph Dorsey MD on 05/04/2022 3:14 PM PST Approved by: Yoseph Dorsey MD on 05/04/2022 3:14 PM PST Station ID: [id number]
[2022-05-04] MEDS ORDERED: cefTRIAXone 1 GM in SODIUM CHLORIDE 0.9% MINIBAG 100 ML IV STA (15:28)
[2022-05-04 15:56] LABS: BILIRUBIN,URINE NEGATIVE (NEGATIVE); GLUCOSE, URINE (UA) NEGATIVE (NEGATIVE); KETONES,URINE (UA) NEGATIVE (NEGATIVE); LEUKOCYTE ESTERASE, URINE LARGE (NEGATIVE); NITRITE,URINE POSITIVE (NEGATIVE); OCCULT BLOOD,URINE MODERATE (NEGATIVE); PH,URINE 8.5 PH (5.0-7.5); PROTEIN,URINE 100 mg/dL (NEGATIVE); UROBILINOGEN,URINE 1 (NORMAL) E.U./dL (NORMAL)
[2022-05-04 15:57] LABS: CLARITY,URINE CLOUDY (CLEAR)
[2022-05-04] MEDS ORDERED: ACETAMINOPHEN 500 MG TABLET PO PRN (16:03)
[2022-05-04] MEDS ORDERED: ONDANSETRON 4 MG/2 ML VIAL IVP PRN (16:03)
[2022-05-04 16:07] LABS: AMORPHOUS SEDIMENT,UR Few /LPF; BACTERIA,URINE Many /HPF (None Seen); CRYSTALS,URINE >50 Triple Phos /LPF; SQUAMOUS EPITHELIAL CELL,UR NONE SEEN (<= Few)
--- NOTE | 2022-05-04 16:07 | ED Physician Documentation ---
ED Addendum - Addendum Addendum: 05/04/22 16:06 Patient signed out to me by Dr. Castillo at 3 PM shift change. Briefly brought in from an assisted living facility with fever and weakness. Found to have UTI with significant leukocytosis, ANDREINA, very positive procalcitonin. Modestly tachycardic but blood pressures are okay. Chest x-ray demonstrating concern for CHF, will need to be admitted, no inpatient beds available here nor at any other facility in the area as of this time. He will be boarding in the emergency department and pending improvement for discharge or bed availability. He was given Rocephin after blood cultures noting previous urine culture of which there have been many but the most recent was used for guidance on antibiotic selection. Review of history and physical from October 30, 2020 notes that he is DNR/DNI/comfort care Diagnosis: 1. UTI 2. Sepsis 3. Acute kidney injury with renal insufficiency Disposition: Boarding in ED pending admission Condition: Serious 05/04/22 16:07
[2022-05-04 16:33] LABS: B. PARAPERTUSSIS- RESP PCR PAN NOT DETECTED; B. PERTUSSIS- RESP PCR PANEL NOT DETECTED; C. PNEUMONIAE- RESP PCR PANEL NOT DETECTED; CORONAVIRUS 229E-RESP PCR NOT DETECTED; CORONAVIRUS HKU1-RESP PCR NOT DETECTED; CORONAVIRUS NL63-RESP PCR NOT DETECTED; CORONAVIRUS OC43-RESP PCR NOT DETECTED; HUMAN METAPNEUMOVIRUS NOT DETECTED; INFLUENZA A- RESP PCR PANEL NOT DETECTED; INFLUENZA B - RESP PCR PANEL NOT DETECTED; M. PNEUMONIAE- RESP PCR PANEL NOT DETECTED; PARAINFLUENZA VIRUS 1 NOT DETECTED; PARAINFLUENZA VIRUS 2 NOT DETECTED; PARAINFLUENZA VIRUS 3 NOT DETECTED; PARAINFLUENZA VIRUS 4 NOT DETECTED; RHINOVIRUS/ENTEROVIRUS NOT DETECTED; RSV- RESP PCR PANEL NOT DETECTED; SARS-CoV-2 -RESP PCR PANEL NOT DETECTED
[2022-05-04 20:19] LABS: CALCIUM 8.5 mg/dL (8.5-10.3); CREATININE 2.5 mg/dL (0.6-1.2); POTASSIUM 3.7 mmol/L (3.5-5.0)
[2022-05-04] MEDS ORDERED: NS W/20 MEQ KCL 1,000 ML IV STA (20:34)
[2022-05-05 00:04] LABS: LACTIC ACID, VENOUS 3.5 mmol/L (0.5-2.2)
[2022-05-05 03:22] LABS: LACTIC ACID, VENOUS 2.8 mmol/L (0.5-2.2)
[2022-05-05 05:47] LABS: BASOPHILS # (AUTO) 0.1 10^3/uL (0.0-0.1); BASOPHILS % (AUTO) 0.3 %; EOSINOPHILS # (AUTO) 0.1 10^3/uL (0.0-0.7); EOSINOPHILS % (AUTO) 0.6 %; HCT - HEMATOCRIT 30.4 % (42.0-52.0); HGB - HEMOGLOBIN 9.8 g/dL (14.0-18.0); LYMPHOCYTES # (AUTO) 0.7 10^3/uL (1.5-3.5); MEAN CORPUSCULAR HEMOGLOBIN 30.3 pg (27.0-31.0); MEAN CORPUSCULAR HGB CONC 32.2 g/dL (32.0-36.0); MEAN CORPUSCULAR VOLUME 94.1 fL (80.0-94.0); MEAN PLATELET VOLUME 10.8 fL (7.4-11.4); MONOCYTES # (AUTO) 0.7 10^3/uL (0.0-1.0); MONOCYTES % (AUTO) 3.7 %; NEUTROPHILS # (AUTO) 16.3 10^3/uL (1.5-6.6); NEUTROPHILS % (AUTO) 90.1 %; PLT - PLATELET COUNT 160 10^3/uL (130-450); RED BLOOD COUNT 3.23 10^6/uL (4.70-6.10); WHITE BLOOD COUNT 18.1 x10^3/uL (4.8-10.8)
[2022-05-05 05:57] LABS: CALCIUM 8.2 mg/dL (8.5-10.3); CREATININE 2.2 mg/dL (0.6-1.2); POTASSIUM 4.4 mmol/L (3.5-5.0)
[2022-05-05 06:30] LABS: LACTIC ACID, VENOUS 2.2 mmol/L (0.5-2.2)
[2022-05-05] MEDS: PANTOPRAZOLE 40 MG TABLET PO SCH (06:42)
[2022-05-05] MEDS ORDERED: SODIUM CHLORIDE 0.9% 1,000 ML IV STA (08:11)
[2022-05-05] MEDS ORDERED: cefTRIAXone 1 GM in SODIUM CHLORIDE 0.9% MINIBAG 100 ML IV SCH (09:00)
[2022-05-05] MEDS ORDERED: ENOXAPARIN 40 MG/0.4 ML SYRINGE SUBQ SCH (09:00)
[2022-05-05] MEDS: MULTIVITAMIN TABLET PO SCH (10:25)
[2022-05-05] MEDS: INSULIN GLARGINE-YFGN 300 UNIT/3 ML PEN SUBQ SCH (10:26)
--- NOTE | 2022-05-05 12:12 | HISTORY & PHYSICAL EXAMINATION ---
History of Present Illness - Admitted From Admitted From:: ED - History Obtained From History obtained from: ED provider and chart review - History of Present Illness HPI Comment/Other: This is a 65-year-old male with a PMH significantly for frequent UTI with chronic indwelling Bryant catheter, a left basal ganglia infarct and right cerebellar infarct, dementia, poorly controlled type 2 diabetes mellitus, CKD, hypertension, hyperlipidemia, coronary artery disease with an FL on 03/06/21, Hx of hemorrhagic colitis, multiple strokes in 2012, 2016 and admitted on 07/10/21 to [facility] for dysarthria/cerebellar ataxia, Polysubstance with M ethamphetamine abuse. The pt is living at [facility]. Pt is poor historian. Pt was brought in by ambulance yesterday from [facility], due to weakness, fever and diarrhea. He was found to be septic with elevated Lactic Acid level. A (recurrent) UTI was suspected. He was fully cultured and started on empiric Ceftriaxone (using the results of last pos urine cx several mos ago, which grew Providencia). His blood cx turned positive today and has been identified by PCR as Proteus species. The ER provider reached out to the Hospitalist Team to admit him. His Code status is DNR. History - Past Medical History Cardiovascular: reports: Hypertension, High cholesterol Respiratory: reports: Pneumonia Neuro: reports: Dementia, Cerebral palsy, CVA, Other Endocrine/Autoimmune: reports: Type 2 diabetes GI: reports: None : reports: Benign prostate hypertrophy, Retention, Chronic bladder infection, Renal insuffiency, Indwelling catheter HEENT: reports: Chronic vision loss Psych: reports: Depression, Anxiety Musculoskeletal: reports: Fatigue, Chronic back pain Derm: reports: None MRSA Hx?: No - Family & Social History Family History: Mother: , Father: , Sister: Alive and Well (has son and daughter in [place]; but estranged), Brother: , Other family: Alive and Well Living arrangement: Assisted living Social History Notes: He currently resides at [facility]. He has history of methamphetamine abuse, used it about twice a week for 10 years according to old records. He is a nonsmoker and uses no alcohol. - POLST Patient has POLST: Yes POLST Status: Full Code Meds/Allgy - Home Medications Home Medications: Ambulatory Orders Medication Instructions Recorded Confirmed Doxazosin [Cardura] 1 mg PO QPM #30 tablet 08/27/18 09/21/21 Tamsulosin [Flomax] 0.4 mg PO DAILY #30 capsule 08/27/18 09/21/21 Insulin Glargine,Hum.rec.anlog 24 unit SUBQ DAILY 03/06/19 09/21/21 [Basaglar Kwikpen U-100] Acetaminophen 650 mg PO Q4HR PRN 03/07/19 09/21/21 Aspirin 325 mg PO DAILY 03/07/19 09/21/21 Atorvastatin Calcium 80 mg PO QPM 03/07/19 09/21/21 Clopidogrel [Plavix] 75 mg PO DAILY 03/07/19 09/21/21 Thiamine [Vitamin B-1] 100 mg PO DAILY 03/07/19 09/21/21 ondansetron HCL [Zofran] 8 mg PO Q8H PRN 03/07/19 09/21/21 Lisinopril [Zestril] 20 mg DAILY 09/03/19 09/21/21 Citalopram [CeleXA] 20 mg PO DAILY 12/16/19 09/21/21 Calcium Carbonate [Tums (Calcium 500 - 1,000 mg PO Q2H 10/30/20 09/21/21 Carbonate 500mg)] Insulin Aspart [NovoLOG] 2 - 12 unit SUBQ TIDWM 10/30/20 09/21/21 Insulin Aspart [NovoLOG] 7 unit SUBQ TIDWM 10/30/20 09/21/21 Omeprazole [PriLOSEC] 20 mg PO DAILY 10/30/20 09/21/21 Amlodipine Besylate [Norvasc] 10 mg PO DAILY 09/21/21 09/21/21 Cefdinir 300 mg PO BID #20 cap 09/21/21 - Allergies Allergies/Adverse Reactions: Allergies Allergy/AdvReac Type Severity Reaction Status Date / Time No Known Drug Allergies Allergy Verified 05/04/22 14:32 Review of Systems - Constitutional Constitutional: reports: Fever, Weakness (Obtained from staff, pt answers "I don't know" to everything.) - Genitourinary Genitourinary: reports: Other (chronic indwelling Bryant) - All Other Systems All Other Systems: reports: Reviewed and negative Exam - Vital Signs Vital Signs: Vital Signs x48h Pulse Resp BP Pulse Ox 05/05/22 11:00 75 18 106/62 96 05/05/22 06:32 68 16 99/73 98 - Physical Exam General Appearance: positive: No acute distress, Alert Eyes Bilateral: positive: Normal inspection, EOMI ENT: positive: ENT inspection nml, No signs of dehydration Neck: positive: Nml inspection, No JVD Respiratory: positive: No respiratory distress, Breath sounds nml Cardiovascular: positive: Regular rate & rhythm, No murmur Abdomen: positive: Non-tender, Nml bowel sounds Skin: positive: Warm, Dry Extremities: positive: Non-tender, No pedal edema Neurologic/Psychiatric: positive: Motor nml, Other (Poor memory) Conclusion/Plan - Problem List (1) Bacteremia due to Proteus species Conclusion/Plan: As per blood cx result. He did present with sepsis with very high lactic acid level but had a normal white count then. Now the white count has increased but his lactic acid has normalized after treatment was started while he was boarding in the ER Plan: Continue with empiric antibiotic ceftriaxone, await final sensitivity diagram to this Proteus and adjust antibiotics accordingly. He will need a total of 14 to 21-day course of antibiotics, we will yet determine what portion will be IV antibiotics, as this depends on his response to treatment. Follow CBC daily (2) Pyelonephritis Conclusion/Plan: As in #1 Plan: We will change out to a new Bryant catheter, if this has not yet been done in the ER. (3) Recurrent UTI Conclusion/Plan: As per Hx (4) Chronic indwelling Bryant catheter Conclusion/Plan: Plan: We will change out to a new Bryant catheter, if this has not yet been done in the ER. (5) Acute kidney injury superimposed on CKD Conclusion/Plan: Reviewing his EMR, his usual creatinine runs 1.1-1.3 at its best. He presented now with a creatinine of 2.5. This is likely due to dehydration related to the fever and diarrhea Plan: Will begin gentle IV fluids Avoid nephrotoxins Follow BMP daily (6) Diarrhea Conclusion/Plan: This may have been the cause of the new UTI. Since there is a prior history of colitis, and no imaging of abdomen pelvis was done in the ER, he went for CT abdomen pelvis before being admitted to an inpatient bed. There were no signs of intestinal abnormality reported Plan: Will check a C. difficile and if negative he can get Imodium as needed (7) Insulin dependent diabetes mellitus Conclusion/Plan: Plan: Will order diabetic diet, hypoglycemia protocol, fingerstick glucose checks before meals and at bedtime and sliding scale insulin coverage in addition to his usual Lantus and mealtime doses of Insulin. (8) Multi-infarct dementia Conclusion/Plan: As per Hx. Plan: We will request our staff to reach out to walking home staff and determine what his usual level of functioning was, before ordering PT and OT rehab. Qualifiers: Dementia severity: severe Dementia behavioral or psychological symptom: unspecified whether behavioral, psychotic, or mood disturbance or anxiety Qualified Code(s): F01.C0 - Vascular dementia, severe, without behavioral disturbance, psychotic disturbance, mood disturbance, and anxiety - Lab Results Fish Bones: 05/05/22 05:23 05/05/22 05:23 - Diagnostic Imaging Results Diagnostic Imaging Results: positive: Final report reviewed - Other Other Results/Comments: Attestation: The patient is expected to be discharged or transferred to another facility within 96 hours: Yes.
[2022-05-05] MEDS ORDERED: SODIUM CHLORIDE FLUSH 0.9% 10 ML SYRINGE IVP PRN (12:16)
[2022-05-05] MEDS ORDERED: ACETAMINOPHEN 325 MG TABLET PO PRN (12:16)
[2022-05-05] MEDS ORDERED: ONDANSETRON 4 MG/2 ML VIAL IVP PRN (12:16)
--- NOTE | 2022-05-05 13:44 | CT Report ---
PROCEDURE: ABDOMEN/PELVIS WO INDICATIONS: Diarrhea, fever, Proteus bacteremia TECHNIQUE: Noncontrast 5 mm thick sections acquired from the diaphragms to the symphysis. 5 mm coronal and sagi ttal reformats were then performed. For radiation dose reduction, the following was used: automated exposure control, adjustment of mA and/or kV according to patient size. COMPARISON: None. FINDINGS: Image quality: Excellent. ABDOMEN: Lung bases: There are trace low-density bilateral pleural effusions. The heart is mildly enlarged wit h a trace low-density pericardial effusion. Solid organs: Liver and spleen are normal in size. Gallbladder is unremarkable Pancreas is mildly atrophic. No adrenal nodules. The kidneys are normal in size. There is moderate bilateral perinephric fat stranding. A low density cystic lesion is present at the upper pole of the left kidney. No hydro nephrosis or nephrolithiasis. No hydroureter or ureterolithiasis. Peritoneum and bowel: Unenhanced bowel loops demonstrate normal wall thickness and caliber. The appe ndix is thin-walled. No free fluid or air. Nodes and vessels: No retroperitoneal or mesenteric adenopathy by size criteria. Aorta and inferior vena cava are normal in caliber. There are scattered atheromatous calcifications throughout the abd ominal aorta. Miscellaneous: No ventral hernias. PELVIS: Genitourinary: The bladder is decompressed and a Bryant catheter is present. Scattered calculi are vis ualized within the dependent bladder, the largest of which measures 1 cm in diameter and approximatel y 330 Hounsfield units in density. Miscellaneous: No inguinal hernias or adenopathy. Bones: No suspicious bony lesions. No vertebral body compression fractures. A bone island is redem onstrated within the left iliac bone. IMPRESSION: 1. Moderate bilateral perinephric fat stranding which may be senescent in nature. 2. No hydronephrosis, nephrolithiasis, hydroureter, or ureterolithiasis. 3. Bladder calculi as above. 4. No acute intra-abdominal findings. Normal appendix. Reviewed by: Chiara Mills MD on 05/05/2022 1:42 PM PST Approved by: Chiara Mills MD on 05/05/2022 1:42 PM PST Station ID: [id number]
--- NOTE | 2022-05-05 14:33 | ED Physician Documentation ---
ED Addendum - Addendum Addendum: The patient was signed out to me at change of shift, pending inpatient bed placement after presenting with diarrhea and being found to have elevated lactic acid and a urinary tract infection. The patient had been boarding in the emergency department, pending bed availability for inpatient management. He had a repeat CBC this morning which showed that his white blood cell count had gone from approximately 5 to approximately 18. His preliminary blood cultures also came back positive for Proteus with sensitivities pending. He had received Rocephin in the emergency department and lactic acid levels had normalized since his initial presentation. He was hemodynamically stable at this point in time. However, given his acute and significant rise in leukocyte count, as well as the positive blood cultures, I feel he should still be admitted to the hospital. I spoke with Dr. Allan, who did agree to admit patient to her service. 05/05/22 14:31
[2022-05-05] MEDS: INSULIN LISPRO 300 UNIT/3 ML PEN SUBQ SCH ×2 (17:35→21:16)
[2022-05-05] MEDS: SODIUM CHLORIDE FLUSH 0.9% 10 ML SYRINGE IVP SCH (17:36)
[2022-05-06] MEDS: SODIUM CHLORIDE FLUSH 0.9% 10 ML SYRINGE IVP SCH ×3 (01:00→21:11)
[2022-05-06] MEDS: PANTOPRAZOLE 40 MG TABLET PO SCH (05:06)
[2022-05-06 06:01] LABS: CALCIUM 8.5 mg/dL (8.5-10.3); CREATININE 1.6 mg/dL (0.6-1.2); MAGNESIUM 1.7 mg/dL (1.7-2.8); POTASSIUM 3.9 mmol/L (3.5-5.0)
[2022-05-06 06:03] LABS: BASOPHILS % (AUTO) 0.3 %; EOSINOPHILS # (AUTO) 0.1 10^3/uL (0.0-0.7); EOSINOPHILS % (AUTO) 0.7 %; HCT - HEMATOCRIT 29.4 % (42.0-52.0); HGB - HEMOGLOBIN 9.5 g/dL (14.0-18.0); LYMPHOCYTES # (AUTO) 1.3 10^3/uL (1.5-3.5); LYMPHOCYTES % (AUTO) 10.7 %; MEAN CORPUSCULAR HEMOGLOBIN 30.5 pg (27.0-31.0); MEAN CORPUSCULAR HGB CONC 32.3 g/dL (32.0-36.0); MEAN CORPUSCULAR VOLUME 94.5 fL (80.0-94.0); MEAN PLATELET VOLUME 11.4 fL (7.4-11.4); MONOCYTES # (AUTO) 0.8 10^3/uL (0.0-1.0); MONOCYTES % (AUTO) 6.5 %; NEUTROPHILS # (AUTO) 9.8 10^3/uL (1.5-6.6); NEUTROPHILS % (AUTO) 81.1 %; PLT - PLATELET COUNT 163 10^3/uL (130-450); RED BLOOD COUNT 3.11 10^6/uL (4.70-6.10); RED CELL DISTRIBUTION WIDTH 14.1 % (12.0-15.0); WHITE BLOOD COUNT 12.1 x10^3/uL (4.8-10.8)
[2022-05-06] MEDS: MULTIVITAMIN TABLET PO SCH (08:42)
[2022-05-06] MEDS: ENOXAPARIN 40 MG/0.4 ML SYRINGE SUBQ SCH (08:42)
[2022-05-06] MEDS: cefTRIAXone 2 GM in SODIUM CHLORIDE 0.9% MINIBAG 100 ML IV SCH (08:43)
[2022-05-06] MEDS: INSULIN LISPRO 300 UNIT/3 ML PEN SUBQ SCH ×4 (08:44→21:11)
[2022-05-06] MEDS: INSULIN GLARGINE-YFGN 300 UNIT/3 ML PEN SUBQ SCH (08:54)
[2022-05-06 11:31] LABS: ESTIMATED AVERAGE GLUCOSE 157 mg/dL (70-100); HEMOGLOBIN A1c% 7.1 % (4.27-6.07)
--- NOTE | 2022-05-06 17:29 | PROVIDER PROGRESS NOTE ---
Assessment/Plan - Problem List (1) Bacteremia due to Proteus species Assessment/Plan: As per blood cx result. He did present with sepsis with very high lactic acid level but had a normal white count then. Then the white count increased but his lactic acid normalized after treatment was started while he was boarding in the ER Plan: Continue with empiric antibiotic ceftriaxone, await final sensitivity biogram to this Proteus and adjust antibiotics accordingly. He will need a total of 14 to 21-day course of antibiotics, we will yet determine what portion will be IV antibiotics and what portion po, as this depends on his response to treatment. Follow CBC daily (2) Pyelonephritis Conclusion/Plan: As in #1 Plan: We will change out to a new Bryant catheter, since it was not done in the ER. (3) Recurrent UTI Conclusion/Plan: As per Hx (4) Chronic indwelling Bryant catheter Conclusion/Plan: Plan: We will change out to a new Bryant catheter, since it was not done in the ER. (5) Acute kidney injury superimposed on CKD Conclusion/Plan: Reviewing his EMR, his usual creatinine runs 1.1-1.3 at its best. He presented now with a creatinine of 2.5. This is likely due to dehydration related to the fever and diarrhea. Today creat improved to 1.6. Plan: Continue IV fluids Avoid nephrotoxins Follow BMP daily (6) Diarrhea Conclusion/Plan: This may have been the cause of the new UTI. He went for CT abdomen pelvis and there were no signs of intestinal abnormality reported. Since admission he has had no BMs Plan: Will check a C. difficile and if negative he can get Imodium as needed (7) Insulin dependent diabetes mellitus Conclusion/Plan: Plan: Will order diabetic diet, hypoglycemia protocol, fingerstick glucose checks before meals and at bedtime and sliding scale insulin coverage in addition to his usual Lantus and mealtime doses of Insulin. (8) Multi-infarct dementia Conclusion/Plan: As per Hx. Plan: We will request our staff to reach out to [facility] staff and determine what his usual level of functioning was. Continue PT and OT rehab Qualifiers: Dementia severity: severe Dementia behavioral or psychological symptom: unspecified whether behavioral, psychotic, or mood disturbance or anxiety Qualified Code(s): F01.C0 - Vascular dementia, severe, without behavioral disturbance, psychotic disturbance, mood disturbance, and anxiety - Current Meds Current Meds: Current Medications Generic Name Dose Route Start Last Admin Trade Name Marylou PRN Reason Stop Dose Admin Enoxaparin Sodium 40 mg 05/06/22 09:00 05/06/22 08:42 Enoxaparin 40 Mg/0.4 Ml Syringe SUBQ 40 mg DAILY MONTY Administration Ceftriaxone Sodium 2 gm/ 100 mls @ 200 mls/hr 05/06/22 09:00 05/06/22 09:13 Sodium Chloride IV Infused DAILY MONTY Infusion Insulin Glargine-yfgn 24 unit 05/05/22 09:00 05/06/22 08:54 Insulin Glargine-Yfgn 300 Unit/3 Ml Pen SUBQ 05/10/22 03:00 24 unit DAILY MONTY Administration Insulin Human Lispro 1 - 5 unit 05/05/22 17:00 05/06/22 12:09 Insulin Lispro 300 Unit/3 Ml Pen SUBQ 2 unit 0800,1200,1700,2100 MONTY Administration Protocol Multivitamins 1 tab 05/05/22 08:00 05/06/22 08:42 Multivitamin Tablet PO 1 tab DAILYWM MONTY Administration Pantoprazole Sodium 40 mg 05/05/22 07:00 05/06/22 05:06 Pantoprazole 40 Mg Tablet PO 40 mg QDAC MONTY Administration Sodium Chloride 10 ml 05/05/22 17:00 05/06/22 12:10 Sodium Chloride Flush 0.9% 10 Ml Syringe IVP 10 ml 0100,0900,1700 MONTY Administration - Lab Result Fish Bone Diagrams: 05/06/22 05:46 05/06/22 05:46 - Additional Planning My Orders: My Active Orders 05/05/22 17:00 Insulin Lispro [Humalog Kwikpen U-100] 1 - 5 unit SUBQ 0800,1200,1700,2100 Sodium Chloride Flush 0.9% [Normal Saline Flush 0.9%] 10 ml IVP 0100,0900,1700 05/06/22 09:00 Enoxaparin [Lovenox] 40 mg SUBQ DAILY cefTRIAXone [Rocephin] 2 gm Sodium Chloride 0.9% Minibag [Normal Saline 0.9% Minibag] 100 ml IV DAILY 05/06/22 10:57 CULTURE, BLOOD #1 [RM] Urgent 05/06/22 11:11 Bryant Insertion [RC] QSHIFT Miscellaenous Nursing Order [RC] ONCE 05/07/22 05:00 BMP - BASIC METABOLIC PANEL [CHEM] DAILYLAB CBC - COMP BLD CT W/AUTO DIFF [HEME] DAILYLAB 05/08/22 05:00 BMP - BASIC METABOLIC PANEL [CHEM] DAILYLAB CBC - COMP BLD CT W/AUTO DIFF [HEME] DAILYLAB 05/09/22 05:00 BMP - BASIC METABOLIC PANEL [CHEM] DAILYLAB CBC - COMP BLD CT W/AUTO DIFF [HEME] DAILYLAB 05/10/22 05:00 BMP - BASIC METABOLIC PANEL [CHEM] DAILYLAB CBC - COMP BLD CT W/AUTO DIFF [HEME] DAILYLAB Subjective - Subjective Patient Reports: Feeling Better (but cannot tell me how he feels better.) Objective Vital Signs: Vital Signs - 24 hr 05/05/22 05/06/22 05/06/22 20:35 01:00 04:52 Temperature 37.1 C 37.4 C 37.2 C Heart Rate [ 74 72 71 Brachial] Respiratory 16 18 18 Rate Blood Pressure 114/63 116/65 112/73 [Right Brachial artery] O2 Saturation 98 94 96 05/06/22 05/06/22 05/06/22 08:31 13:00 15:51 Temperature 36.9 C 36.8 C 36.7 C Heart Rate [ 70 67 67 Brachial] Respiratory 18 18 18 Rate Blood Pressure 120/68 131/76 H 109/76 [Right Brachial artery] O2 Saturation 93 94 94 Oxygen O2 Source [With Activity] Nasal cannula O2 Source Room air I&O (Last 24 Hrs): Intake and Output Totals x24h 05/04/22 05/05/22 05/06/22 23:59 23:59 23:59 Intake Total 2200 1841 1370 Output Total 1375 1550 Balance 2200 466 -180 General: Alert, No acute distress HEENT: Mucous membr. moist/pink Neck: Supple, No JVD Neuro: Alert, Non Focal, Other (Poor memory) Cardiovascular: Regular rate, No murmurs Respiratory: No respiratory distress, Breath sounds nml Abdomen: Normal bowel sounds, Soft Extremities: No clubbing, No edema - Results Results: Laboratory Results WBC 12.1 x10^3/uL (4.8-10.8) H 05/06/22 05:46 RBC 3.11 10^6/uL (4.70-6.10) L 05/06/22 05:46 Hgb 9.5 g/dL (14.0-18.0) L 05/06/22 05:46 Hct 29.4 % (42.0-52.0) L 05/06/22 05:46 MCV 94.5 fL (80.0-94.0) H 05/06/22 05:46 MCH 30.5 pg (27.0-31.0) 05/06/22 05:46 MCHC 32.3 g/dL (32.0-36.0) 05/06/22 05:46 RDW 14.1 % (12.0-15.0) 05/06/22 05:46 Plt Count 163 10^3/uL (130-450) 05/06/22 05:46 MPV 11.4 fL (7.4-11.4) 05/06/22 05:46 Neut # (Auto) 9.8 10^3/uL (1.5-6.6) H 05/06/22 05:46 Lymph # (Auto) 1.3 10^3/uL (1.5-3.5) L 05/06/22 05:46 [place] # (Auto) 0.8 10^3/uL (0.0-1.0) 05/06/22 05:46 Eos # (Auto) 0.1 10^3/uL (0.0-0.7) 05/06/22 05:46 Baso # (Auto) 0.0 10^3/uL (0.0-0.1) 05/06/22 05:46 Absolute Nucleated RBC 0.00 x10^3/uL 05/06/22 05:46 Nucleated RBC % 0.0 /100WBC 05/06/22 05:46 Sodium 138 mmol/L (135-145) 05/06/22 05:46 Potassium 3.9 mmol/L (3.5-5.0) 05/06/22 05:46 Chloride 111 mmol/L (101-111) 05/06/22 05:46 Carbon Dioxide 20 mmol/L (21-32) L 05/06/22 05:46 Anion Gap 7.0 (6-13) 05/06/22 05:46 BUN 40 mg/dL (6-20) H 05/06/22 05:46 Creatinine 1.6 mg/dL (0.6-1.2) H 05/06/22 05:46 Estimated GFR (MDRD) 43 (>89) L 05/06/22 05:46 Glucose 189 mg/dL (70-100) H 05/06/22 05:46 Estimat Average Glucose 157 mg/dL (70-100) H 05/06/22 05:46 Hemoglobin A1c % 7.1 % (4.27-6.07) H 05/06/22 05:46 Lactic Acid 1.0 mmol/L (0.5-2.2) 05/05/22 09:33 Calcium 8.5 mg/dL (8.5-10.3) 05/06/22 05:46 Magnesium 1.7 mg/dL (1.7-2.8) 05/06/22 05:46 Total Bilirubin 1.1 mg/dL (0.2-1.0) H 05/04/22 14:40 AST 29 IU/L (10-42) 05/04/22 14:40 ALT 28 IU/L (10-60) 05/04/22 14:40 Alkaline Phosphatase 92 IU/L (42-121) 05/04/22 14:40 Total Protein 7.2 g/dL (6.7-8.2) 05/04/22 14:40 Albumin 3.6 g/dL (3.2-5.5) 05/04/22 14:40 Globulin 3.6 g/dL (2.1-4.2) 05/04/22 14:40 Albumin/Globulin Ratio 1.0 (1.0-2.2) 05/04/22 14:40 Procalcitonin 19.97 ng/mL (<0.5) H* 05/04/22 14:40 Urine Color YELLOW 05/04/22 15:45 Urine Clarity CLOUDY (CLEAR) 05/04/22 15:45 Urine pH 8.5 PH (5.0-7.5) H 05/04/22 15:45 Ur Specific [place] <=1.005 (1.002-1.030) 05/04/22 15:45 Urine Protein 100 mg/dL (NEGATIVE) H 05/04/22 15:45 Urine Glucose (UA) NEGATIVE mg/dL (NEGATIVE) 05/04/22 15:45 Urine Ketones NEGATIVE mg/dL (NEGATIVE) 05/04/22 15:45 Urine Occult Blood MODERATE (NEGATIVE) H 05/04/22 15:45 Urine Nitrite POSITIVE (NEGATIVE) H 05/04/22 15:45 Urine Bilirubin NEGATIVE (NEGATIVE) 05/04/22 15:45 Urine Urobilinogen 1 (NORMAL) E.U./dL (NORMAL) 05/04/22 15:45 Ur Leukocyte Esterase LARGE (NEGATIVE) H 05/04/22 15:45 Urine RBC 6-10 /HPF (0-5) H 05/04/22 15:45 Urine WBC 11-25 /HPF (0-3) H 05/04/22 15:45 Ur Squamous Epith Cells NONE SEEN (<= Few) 05/04/22 15:45 Urine Crystals >50 Triple Phos /LPF 05/04/22 15:45 Amorphous Sediment Few /LPF 05/04/22 15:45 Urine Bacteria Many /HPF (None Seen) H 05/04/22 15:45 Urine Culture Comments INDICATED 05/04/22 15:45 Nasal Adenovirus (PCR) NOT DETECTED 05/04/22 15:15 Nasal B. parapertussis DNA (PCR) NOT DETECTED 05/04/22 15:15 Nasal Coronavir 229E PCR NOT DETECTED 05/04/22 15:15 Nasal Coronavir HKU1 PCR NOT DETECTED 05/04/22 15:15 Nasal Coronavir NL63 PCR NOT DETECTED 05/04/22 15:15 Nasal Coronavir OC43 PCR NOT DETECTED 05/04/22 15:15 Nasal Enterovir/Rhinovir PCR NOT DETECTED 05/04/22 15:15 Nasal Influenza B PCR NOT DETECTED 05/04/22 15:15 Nasal Influenza A PCR NOT DETECTED 05/04/22 15:15 Nasal Parainfluen 1 PCR NOT DETECTED 05/04/22 15:15 Nasal Parainfluen 2 PCR NOT DETECTED 05/04/22 15:15 Nasal Parainfluen 3 PCR NOT DETECTED 05/04/22 15:15 Nasal Parainfluen 4 PCR NOT DETECTED 05/04/22 15:15 Nasal RSV (PCR) NOT DETECTED 05/04/22 15:15 Nasal B.pertussis DNA PCR NOT DETECTED 05/04/22 15:15 Nasal C.pneumoniae (PCR) NOT DETECTED 05/04/22 15:15 Raz Human Metapneumo PCR NOT DETECTED 05/04/22 15:15 Nasal M.pneumoniae (PCR) NOT DETECTED 05/04/22 15:15 Nasal SARS-CoV-2 (PCR) NOT DETECTED 05/04/22 15:15
[2022-05-07] MEDS: SODIUM CHLORIDE FLUSH 0.9% 10 ML SYRINGE IVP SCH ×4 (00:24→23:39)
[2022-05-07] MEDS: PANTOPRAZOLE 40 MG TABLET PO SCH (05:02)
[2022-05-07 05:08] LABS: BASOPHILS % (AUTO) 0.3 %; EOSINOPHILS # (AUTO) 0.2 10^3/uL (0.0-0.7); EOSINOPHILS % (AUTO) 2.9 %; HCT - HEMATOCRIT 31.4 % (42.0-52.0); HGB - HEMOGLOBIN 10.1 g/dL (14.0-18.0); LYMPHOCYTES # (AUTO) 1.4 10^3/uL (1.5-3.5); LYMPHOCYTES % (AUTO) 17.2 %; MEAN CORPUSCULAR HEMOGLOBIN 29.7 pg (27.0-31.0); MEAN CORPUSCULAR HGB CONC 32.2 g/dL (32.0-36.0); MEAN CORPUSCULAR VOLUME 92.4 fL (80.0-94.0); MEAN PLATELET VOLUME 10.8 fL (7.4-11.4); MONOCYTES # (AUTO) 0.7 10^3/uL (0.0-1.0); MONOCYTES % (AUTO) 8.5 %; NEUTROPHILS # (AUTO) 5.5 10^3/uL (1.5-6.6); NEUTROPHILS % (AUTO) 70.1 %; PLT - PLATELET COUNT 167 10^3/uL (130-450); WHITE BLOOD COUNT 7.9 x10^3/uL (4.8-10.8)
[2022-05-07 05:19] LABS: CALCIUM 8.8 mg/dL (8.5-10.3); CREATININE 1.2 mg/dL (0.6-1.2); POTASSIUM 4.3 mmol/L (3.5-5.0)
[2022-05-07] MEDS: INSULIN LISPRO 300 UNIT/3 ML PEN SUBQ SCH ×4 (07:55→20:47)
[2022-05-07] MEDS: MULTIVITAMIN TABLET PO SCH (08:59)
[2022-05-07] MEDS: INSULIN GLARGINE-YFGN 300 UNIT/3 ML PEN SUBQ SCH (08:59)
[2022-05-07] MEDS: ENOXAPARIN 40 MG/0.4 ML SYRINGE SUBQ SCH (09:02)
[2022-05-07] MEDS: cefTRIAXone 2 GM in SODIUM CHLORIDE 0.9% MINIBAG 100 ML IV SCH (09:14)
--- NOTE | 2022-05-07 13:57 | PHARMACY PROGRESS NOTE ---
- Best Possible Medication History Admit Date and Time: 05/05/22 1216 Processed by: Pharmacy Medication History completed: Yes Patient Interview: Completed Secondary Source(s): Insurance records, Facility MAR as ONLY source As the person ultimately responsible for medication therapy, providers are able to order a medication from an existing home medication list in [facility] via the "Reconcile Routine" prior to Confirmation of that medication by fire support man. Such practice is discouraged except when the physician, in their clinical judgment, deems that a medical need exists for a medication without regard to previous use.
--- NOTE | 2022-05-07 14:59 | PROVIDER PROGRESS NOTE ---
Assessment/Plan - Problem List (1) Bacteremia due to Proteus species Assessment/Plan: As per blood cx result. He did have sepsis (while boarding in ED), with very high lactic acid level but had a normal white count then. Then the white count increased but his lactic acid normalized after treatment was started while he was boarding in the ER Plan: Continue with empiric antibiotic ceftriaxone, await final sensitivity biogram to this Proteus and adjust antibiotics accordingly. He will need a total of 10 to 14-day course of antibiotics, and we will yet determine what portion will be IV antibiotics and what portion oral, as this depends on the biogram Follow CBC daily (2) Pyelonephritis Conclusion/Plan: As in #1 Plan: We changed out to a new Bryant catheter, since it was not done in the ER. (3) Recurrent UTI Conclusion/Plan: As per Hx (4) Chronic indwelling Bryant catheter Conclusion/Plan: Plan: We changed out to a new Bryant catheter, since it was not done in the ER. (5) Insulin dependent diabetes mellitus Conclusion/Plan: His A1c is very good at Plan: Will order diabetic diet, hypoglycemia protocol, fingerstick glucose checks before meals and at bedtime and sliding scale insulin coverage in addition to his usual Lantus and mealtime doses of Insulin. (6) Multi-infarct dementia Conclusion/Plan: As per Hx. Plan: We will request our staff to reach out to [facility] staff and determine what his usual level of functioning had>> found out he can stand and pivot and can take 3 steps from bed to wheelchair. Continue PT and OT rehab order Qualifiers: Dementia severity: severe Dementia behavioral or psychological symptom: unspecified whether behavioral, psychotic, or mood disturbance or anxiety Qualified Code(s): F01.C0 - Vascular dementia, severe, without behavioral disturbance, psychotic disturbance, mood disturbance, and anxiety (7) Diarrhea Conclusion/Plan: Improved This may have been the cause of the new UTI. He went for CT abdomen pelvis and there were no signs of intestinal abnormality reported. Since admission he has had no BMs Plan: CAncel the C. difficile order (8) Acute kidney injury superimposed on CKD Conclusion/Plan Resolved Reviewing his EMR, his usual creatinine runs 1.1-1.3 at its best. He presented now with a creatinine of 2.5. This is likely due to dehydration related to the fever and diarrhea. Today creat improved to 1.2 Plan: Continue IV fluids one more day Avoid nephrotoxins Follow BMP daily - Current Meds Current Meds: Current Medications Generic Name Dose Route Start Last Admin Trade Name Marylou PRN Reason Stop Dose Admin Enoxaparin Sodium 40 mg 05/06/22 09:00 05/07/22 09:02 Enoxaparin 40 Mg/0.4 Ml Syringe SUBQ 40 mg DAILY MONTY Administration Ceftriaxone Sodium 2 gm/ 100 mls @ 200 mls/hr 05/06/22 09:00 05/07/22 09:45 Sodium Chloride IV Infused DAILY MONTY Infusion Insulin Glargine-yfgn 24 unit 05/05/22 09:00 05/07/22 08:59 Insulin Glargine-Yfgn 300 Unit/3 Ml Pen SUBQ 05/10/22 03:00 24 unit DAILY MONTY Administration Insulin Human Lispro 1 - 5 unit 05/05/22 17:00 05/07/22 11:40 Insulin Lispro 300 Unit/3 Ml Pen SUBQ 2 unit 0800,1200,1700,2100 MONTY Administration Protocol Multivitamins 1 tab 05/05/22 08:00 05/07/22 08:59 Multivitamin Tablet PO 1 tab DAILYWM MONTY Administration Pantoprazole Sodium 40 mg 05/05/22 07:00 05/07/22 05:02 Pantoprazole 40 Mg Tablet PO 40 mg QDAC MONTY Administration Sodium Chloride 10 ml 05/05/22 17:00 05/07/22 08:01 Sodium Chloride Flush 0.9% 10 Ml Syringe IVP 10 ml 0100,0900,1700 MONTY Administration - Lab Result Fish Bone Diagrams: 05/08/22 05:39 05/08/22 05:39 - Additional Planning My Orders: My Active Orders 05/08/22 05:00 BMP - BASIC METABOLIC PANEL [CHEM] DAILYLAB CBC - COMP BLD CT W/AUTO DIFF [HEME] DAILYLAB 05/09/22 05:00 BMP - BASIC METABOLIC PANEL [CHEM] DAILYLAB CBC - COMP BLD CT W/AUTO DIFF [HEME] DAILYLAB 05/10/22 05:00 BMP - BASIC METABOLIC PANEL [CHEM] DAILYLAB CBC - COMP BLD CT W/AUTO DIFF [HEME] DAILYLAB Subjective - Subjective Patient Reports: Feeling Better, No Complaints (But he says he cannot remember how he got here, and does not know how long he's been here.) Objective Vital Signs: Vital Signs - 24 hr 05/06/22 05/06/22 05/07/22 15:51 20:49 00:28 Temperature 36.7 C 36.7 C 36.9 C Heart Rate [ 67 69 66 Brachial] Respiratory 18 18 18 Rate Blood Pressure 109/76 134/76 H 139/75 H [Right Brachial artery] O2 Saturation 94 97 96 05/07/22 05/07/22 05/07/22 05:00 07:28 12:36 Temperature 36.6 C 36.6 C 36.4 C L Heart Rate [ 63 60 76 Brachial] Respiratory 16 20 18 Rate Blood Pressure 128/82 H 133/78 H 118/84 H [Right Brachial artery] O2 Saturation 96 96 97 Oxygen O2 Source [With Activity] Nasal cannula O2 Source Room air I&O (Last 24 Hrs): Intake and Output Totals x24h 05/05/22 05/06/22 05/07/22 23:59 23:59 23:59 Intake Total 1841 1710 820 Output Total 1375 1850 2325 Balance 466 -140 -1505 General: Alert, No acute distress (Oriented to person and place but not time) HEENT: Mucous membr. moist/pink Neck: Supple, No JVD Neuro: Alert, Non Focal, Other (Poor memory) Cardiovascular: Regular rate, No murmurs Respiratory: No respiratory distress, Breath sounds nml Abdomen: Normal bowel sounds, Soft, No tenderness Genitourinary: Other (New Bryant in place, draining clear yellow urine) Extremities: No clubbing, No edema, No tenderness/swelling - Results Results: Laboratory Results WBC 7.9 x10^3/uL (4.8-10.8) 05/07/22 05:00 RBC 3.40 10^6/uL (4.70-6.10) L 05/07/22 05:00 Hgb 10.1 g/dL (14.0-18.0) L 05/07/22 05:00 Hct 31.4 % (42.0-52.0) L 05/07/22 05:00 MCV 92.4 fL (80.0-94.0) 05/07/22 05:00 MCH 29.7 pg (27.0-31.0) 05/07/22 05:00 MCHC 32.2 g/dL (32.0-36.0) 05/07/22 05:00 RDW 14.0 % (12.0-15.0) 05/07/22 05:00 Plt Count 167 10^3/uL (130-450) 05/07/22 05:00 MPV 10.8 fL (7.4-11.4) 05/07/22 05:00 Neut # (Auto) 5.5 10^3/uL (1.5-6.6) 05/07/22 05:00 Lymph # (Auto) 1.4 10^3/uL (1.5-3.5) L 05/07/22 05:00 [place] # (Auto) 0.7 10^3/uL (0.0-1.0) 05/07/22 05:00 Eos # (Auto) 0.2 10^3/uL (0.0-0.7) 05/07/22 05:00 Baso # (Auto) 0.0 10^3/uL (0.0-0.1) 05/07/22 05:00 Absolute Nucleated RBC 0.00 x10^3/uL 05/07/22 05:00 Nucleated RBC % 0.0 /100WBC 05/07/22 05:00 Sodium 139 mmol/L (135-145) 05/07/22 05:00 Potassium 4.3 mmol/L (3.5-5.0) 05/07/22 05:00 Chloride 109 mmol/L (101-111) 05/07/22 05:00 Carbon Dioxide 22 mmol/L (21-32) 05/07/22 05:00 Anion Gap 8.0 (6-13) 05/07/22 05:00 BUN 29 mg/dL (6-20) H 05/07/22 05:00 Creatinine 1.2 mg/dL (0.6-1.2) 05/07/22 05:00 Estimated GFR (MDRD) 60 (>89) L 05/07/22 05:00 Glucose 155 mg/dL (70-100) H 05/07/22 05:00 Estimat Average Glucose 157 mg/dL (70-100) H 05/06/22 05:46 Hemoglobin A1c % 7.1 % (4.27-6.07) H 05/06/22 05:46 Lactic Acid 1.0 mmol/L (0.5-2.2) 05/05/22 09:33 Calcium 8.8 mg/dL (8.5-10.3) 05/07/22 05:00 Magnesium 1.7 mg/dL (1.7-2.8) 05/06/22 05:46 Total Bilirubin 1.1 mg/dL (0.2-1.0) H 05/04/22 14:40 AST 29 IU/L (10-42) 05/04/22 14:40 ALT 28 IU/L (10-60) 05/04/22 14:40 Alkaline Phosphatase 92 IU/L (42-121) 05/04/22 14:40 Total Protein 7.2 g/dL (6.7-8.2) 05/04/22 14:40 Albumin 3.6 g/dL (3.2-5.5) 05/04/22 14:40 Globulin 3.6 g/dL (2.1-4.2) 05/04/22 14:40 Albumin/Globulin Ratio 1.0 (1.0-2.2) 05/04/22 14:40 Procalcitonin 19.97 ng/mL (<0.5) H* 05/04/22 14:40 Urine Color YELLOW 05/04/22 15:45 Urine Clarity CLOUDY (CLEAR) 05/04/22 15:45 Urine pH 8.5 PH (5.0-7.5) H 05/04/22 15:45 Ur Specific [place] <=1.005 (1.002-1.030) 05/04/22 15:45 Urine Protein 100 mg/dL (NEGATIVE) H 05/04/22 15:45 Urine Glucose (UA) NEGATIVE mg/dL (NEGATIVE) 05/04/22 15:45 Urine Ketones NEGATIVE mg/dL (NEGATIVE) 05/04/22 15:45 Urine Occult Blood MODERATE (NEGATIVE) H 05/04/22 15:45 Urine Nitrite POSITIVE (NEGATIVE) H 05/04/22 15:45 Urine Bilirubin NEGATIVE (NEGATIVE) 05/04/22 15:45 Urine Urobilinogen 1 (NORMAL) E.U./dL (NORMAL) 05/04/22 15:45 Ur Leukocyte Esterase LARGE (NEGATIVE) H 05/04/22 15:45 Urine RBC 6-10 /HPF (0-5) H 05/04/22 15:45 Urine WBC 11-25 /HPF (0-3) H 05/04/22 15:45 Ur Squamous Epith Cells NONE SEEN (<= Few) 05/04/22 15:45 Urine Crystals >50 Triple Phos /LPF 05/04/22 15:45 Amorphous Sediment Few /LPF 05/04/22 15:45 Urine Bacteria Many /HPF (None Seen) H 05/04/22 15:45 Urine Culture Comments INDICATED 05/04/22 15:45 Nasal Adenovirus (PCR) NOT DETECTED 05/04/22 15:15 Nasal B. parapertussis DNA (PCR) NOT DETECTED 05/04/22 15:15 Nasal Coronavir 229E PCR NOT DETECTED 05/04/22 15:15 Nasal Coronavir HKU1 PCR NOT DETECTED 05/04/22 15:15 Nasal Coronavir NL63 PCR NOT DETECTED 05/04/22 15:15 Nasal Coronavir OC43 PCR NOT DETECTED 05/04/22 15:15 Nasal Enterovir/Rhinovir PCR NOT DETECTED 05/04/22 15:15 Nasal Influenza B PCR NOT DETECTED 05/04/22 15:15 Nasal Influenza A PCR NOT DETECTED 05/04/22 15:15 Nasal Parainfluen 1 PCR NOT DETECTED 05/04/22 15:15 Nasal Parainfluen 2 PCR NOT DETECTED 05/04/22 15:15 Nasal Parainfluen 3 PCR NOT DETECTED 05/04/22 15:15 Nasal Parainfluen 4 PCR NOT DETECTED 05/04/22 15:15 Nasal RSV (PCR) NOT DETECTED 05/04/22 15:15 Nasal B.pertussis DNA PCR NOT DETECTED 05/04/22 15:15 Nasal C.pneumoniae (PCR) NOT DETECTED 05/04/22 15:15 Raz Human Metapneumo PCR NOT DETECTED 05/04/22 15:15 Nasal M.pneumoniae (PCR) NOT DETECTED 05/04/22 15:15 Nasal SARS-CoV-2 (PCR) NOT DETECTED 05/04/22 15:15
[2022-05-08] MEDS: PANTOPRAZOLE 40 MG TABLET PO SCH (05:17)
[2022-05-08 05:55] LABS: BASOPHILS % (AUTO) 0.6 %; EOSINOPHILS % (AUTO) 0.1 %; HCT - HEMATOCRIT 32.8 % (42.0-52.0); HGB - HEMOGLOBIN 10.4 g/dL (14.0-18.0); LYMPHOCYTES # (AUTO) 1.7 10^3/uL (1.5-3.5); LYMPHOCYTES % (AUTO) 25.8 %; MEAN CORPUSCULAR HEMOGLOBIN 29.3 pg (27.0-31.0); MEAN CORPUSCULAR HGB CONC 31.7 g/dL (32.0-36.0); MEAN CORPUSCULAR VOLUME 92.4 fL (80.0-94.0); MEAN PLATELET VOLUME 10.9 fL (7.4-11.4); MONOCYTES # (AUTO) 0.6 10^3/uL (0.0-1.0); MONOCYTES % (AUTO) 9.6 %; NEUTROPHILS # (AUTO) 4.2 10^3/uL (1.5-6.6); NEUTROPHILS % (AUTO) 62.6 %; PLT - PLATELET COUNT 204 10^3/uL (130-450); RED BLOOD COUNT 3.55 10^6/uL (4.70-6.10); RED CELL DISTRIBUTION WIDTH 13.9 % (12.0-15.0); WHITE BLOOD COUNT 6.7 x10^3/uL (4.8-10.8)
[2022-05-08 06:03] LABS: CREATININE 1.1 mg/dL (0.6-1.2); POTASSIUM 4.2 mmol/L (3.5-5.0)
[2022-05-08] MEDS: INSULIN LISPRO 300 UNIT/3 ML PEN SUBQ SCH ×4 (07:54→20:17)
[2022-05-08] MEDS: MULTIVITAMIN TABLET PO SCH (07:54)
[2022-05-08] MEDS: ENOXAPARIN 40 MG/0.4 ML SYRINGE SUBQ SCH (08:01)
[2022-05-08] MEDS: INSULIN GLARGINE-YFGN 300 UNIT/3 ML PEN SUBQ SCH (08:01)
[2022-05-08] MEDS: SODIUM CHLORIDE FLUSH 0.9% 10 ML SYRINGE IVP SCH ×2 (08:01→17:20)
[2022-05-08] MEDS: cefTRIAXone 2 GM in SODIUM CHLORIDE 0.9% MINIBAG 100 ML IV SCH (08:11)
[2022-05-08] MEDS: SACCHAROMYCES BOULARDII 250 MG CAPSULE PO SCH ×2 (09:57→17:19)
--- NOTE | 2022-05-08 13:46 | PROVIDER PROGRESS NOTE ---
Assessment/Plan - Problem List (1) Bacteremia due to Proteus species Assessment/Plan: As per blood cx result. He did have sepsis (while boarding in ED), with very high lactic acid level but had a normal white count then. Then the white count increased to 14, but his lactic acid normalized, after treatment was started while he was boarding in the ER. Sensitivities are back on the Proteus in the blood cx and in the urine cx, it is the same organism. A repeat blood culture was sent after antibx started, and remains negative at day 1.5 Plan: Finish antibiotic ceftriaxone after today. Start oral cefuroxime tonight, give twice daily He will need a total of 10 course of antibiotics If the final repeat blood culture result is negative, he can be discharged tomorrow (2) Pyelonephritis Conclusion/Plan: As in #1 Plan: We changed out to a new Bryant catheter, since it was not done in the ER. (3) Recurrent UTI Conclusion/Plan: As per Hx (4) Chronic indwelling Bryant catheter Conclusion/Plan: Plan: We changed out to a new Bryant catheter, since it was not done in the ER. (5) Insulin dependent diabetes mellitus Conclusion/Plan: His A1c is very good at 7.1. Plan: We ordered diabetic diet, hypoglycemia protocol, fingerstick glucose checks before meals and at bedtime and sliding scale insulin coverage in addition to his usual Lantus and mealtime doses of Insulin. (6) Multi-infarct dementia Conclusion/Plan: As per Hx. Plan: We learned from staff at [facility] that he can stand and pivot and can take 3 steps from bed to wheelchair. Continue PT and OT rehab order Will order a shower Qualifiers: Dementia severity: severe Dementia behavioral or psychological symptom: unspecified whether behavioral, psychotic, or mood disturbance or anxiety Qualified Code(s): F01.C0 - Vascular dementia, severe, without behavioral dis turbance, psychotic disturbance, mood disturbance, and anxiety (7) Diarrhea Conclusion/Plan: Improved This may have been the cause of the new UTI. He went for CT abdomen pelvis and there were no signs of intestinal abnormality reported. Since admission he has had no BMs Plan: We cancelled the C. difficile order (8) Acute kidney injury superimposed on CKD Conclusion/Plan Resolved Reviewing his EMR, his usual creatinine runs 1.1-1.3 at its best. He presented now with a creatinine of 2.5. This is likely due to dehydration related to the fever and diarrhea. Today creat has improved to 1.2 Plan: We stopped iv fluids Avoid nephrotoxins Follow BMP daily - Current Meds Current Meds: Current Medications Generic Name Dose Route Start Last Admin Trade Name Freq PRN Reason Stop Dose Admin Enoxaparin Sodium 40 mg 05/06/22 09:00 05/08/22 08:01 Enoxaparin 40 Mg/0.4 Ml Syringe SUBQ 40 mg DAILY MONTY Administration Ceftriaxone Sodium 2 gm/ 100 mls @ 200 mls/hr 05/06/22 09:00 05/08/22 08:45 Sodium Chloride IV 05/08/22 22:00 Infused DAILY MONTY Infusion Insulin Glargine-yfgn 24 unit 05/05/22 09:00 05/08/22 08:01 Insulin Glargine-Yfgn 300 Unit/3 Ml Pen SUBQ 05/10/22 03:00 24 unit DAILY MONTY Administration Insulin Human Lispro 1 - 5 unit 05/05/22 17:00 05/08/22 11:56 Insulin Lispro 300 Unit/3 Ml Pen SUBQ 2 unit 0800,1200,1700,2100 MONTY Administration Protocol Multivitamins 1 tab 05/05/22 08:00 05/08/22 07:54 Multivitamin Tablet PO 1 tab DAILYWM MONTY Administration Pantoprazole Sodium 40 mg 05/05/22 07:00 05/08/22 05:17 Pantoprazole 40 Mg Tablet PO 40 mg QDAC MONTY Administration Saccharomyces Boulardii 250 mg 05/08/22 09:30 05/08/22 09:57 Saccharomyces Boulardii 250 Mg Capsule PO 250 mg BIDWM MONTY Administration Sodium Chloride 10 ml 05/05/22 17:00 05/08/22 08:01 Sodium Chloride Flush 0.9% 10 Ml Syringe IVP 10 ml 0100,0900,1700 MONTY Administration - Lab Result Fish Bone Diagrams: 05/08/22 05:39 05/08/22 05:39 - Additional Planning My Orders: My Active Orders 05/08/22 09:30 Saccharomyces Boulardii [Florastor] 250 mg PO BIDWM 05/08/22 21:00 cefUROXime axetiL [Ceftin] 500 mg PO BID 05/09/22 05:00 BMP - BASIC METABOLIC PANEL [CHEM] DAILYLAB CBC - COMP BLD CT W/AUTO DIFF [HEME] DAILYLAB 05/10/22 05:00 BMP - BASIC METABOLIC PANEL [CHEM] DAILYLAB CBC - COMP BLD CT W/AUTO DIFF [HEME] DAILYLAB Subjective - Subjective Patient Reports: Feeling Better, No Complaints Objective Vital Signs: Vital Signs - 24 hr 05/07/22 05/07/22 05/08/22 16:04 23:22 07:20 Temperature 36.9 C 36.6 C 36.4 C L Heart Rate [ 64 61 55 L Brachial] Respiratory 20 18 16 Rate Blood Pressure 129/77 133/88 H 138/75 H [Right Brachial artery] O2 Saturation 96 96 97 Oxygen O2 Source [With Activity] Nasal cannula O2 Source Room air I&O (Last 24 Hrs): Intake and Output Totals x24h 05/06/22 05/07/22 05/08/22 23:59 23:59 23:59 Intake Total 1710 1260 1310 Output Total 1850 2825 1425 Balance -140 -1565 -115 General: Alert, Other (Oriented to person and place but not time) HEENT: Mucous membr. moist/pink, Other (Disheveled) Neck: Supple, No JVD Neuro: Alert, Disoriented, Non Focal Cardiovascular: No murmurs Respiratory: No respiratory distress Abdomen: Normal bowel sounds, Soft Genitourinary: Other (Has a Bryant) Extremities: No clubbing, No edema - Results Results: Laboratory Results WBC 6.7 x10^3/uL (4.8-10.8) 05/08/22 05:39 RBC 3.55 10^6/uL (4.70-6.10) L 05/08/22 05:39 Hgb 10.4 g/dL (14.0-18.0) L 05/08/22 05:39 Hct 32.8 % (42.0-52.0) L 05/08/22 05:39 MCV 92.4 fL (80.0-94.0) 05/08/22 05:39 MCH 29.3 pg (27.0-31.0) 05/08/22 05:39 MCHC 31.7 g/dL (32.0-36.0) L 05/08/22 05:39 RDW 13.9 % (12.0-15.0) 05/08/22 05:39 Plt Count 204 10^3/uL (130-450) 05/08/22 05:39 MPV 10.9 fL (7.4-11.4) 05/08/22 05:39 Neut # (Auto) 4.2 10^3/uL (1.5-6.6) 05/08/22 05:39 Lymph # (Auto) 1.7 10^3/uL (1.5-3.5) 05/08/22 05:39 Fleming # (Auto) 0.6 10^3/uL (0.0-1.0) 05/08/22 05:39 Eos # (Auto) 0.0 10^3/uL (0.0-0.7) 05/08/22 05:39 Baso # (Auto) 0.0 10^3/uL (0.0-0.1) 05/08/22 05:39 Absolute Nucleated RBC 0.00 x10^3/uL 05/08/22 05:39 Nucleated RBC % 0.0 /100WBC 05/08/22 05:39 Sodium 140 mmol/L (135-145) 05/08/22 05:39 Potassium 4.2 mmol/L (3.5-5.0) 05/08/22 05:39 Chloride 109 mmol/L (101-111) 05/08/22 05:39 Carbon Dioxide 24 mmol/L (21-32) 05/08/22 05:39 Anion Gap 7.0 (6-13) 05/08/22 05:39 BUN 23 mg/dL (6-20) H 05/08/22 05:39 Creatinine 1.1 mg/dL (0.6-1.2) 05/08/22 05:39 Estimated GFR (MDRD) 66 (>89) L 05/08/22 05:39 Glucose 107 mg/dL (70-100) H 05/08/22 05:39 Estimat Average Glucose 157 mg/dL (70-100) H 05/06/22 05:46 Hemoglobin A1c % 7.1 % (4.27-6.07) H 05/06/22 05:46 Lactic Acid 1.0 mmol/L (0.5-2.2) 05/05/22 09:33 Calcium 9.0 mg/dL (8.5-10.3) 05/08/22 05:39 Magnesium 1.7 mg/dL (1.7-2.8) 05/06/22 05:46 Total Bilirubin 1.1 mg/dL (0.2-1.0) H 05/04/22 14:40 AST 29 IU/L (10-42) 05/04/22 14:40 ALT 28 IU/L (10-60) 05/04/22 14:40 Alkaline Phosphatase 92 IU/L (42-121) 05/04/22 14:40 Total Protein 7.2 g/dL (6.7-8.2) 05/04/22 14:40 Albumin 3.6 g/dL (3.2-5.5) 05/04/22 14:40 Globulin 3.6 g/dL (2.1-4.2) 05/04/22 14:40 Albumin/Globulin Ratio 1.0 (1.0-2.2) 05/04/22 14:40 Procalcitonin 19.97 ng/mL (<0.5) H* 05/04/22 14:40 Urine Color YELLOW 05/04/22 15:45 Urine Clarity CLOUDY (CLEAR) 05/04/22 15:45 Urine pH 8.5 PH (5.0-7.5) H 05/04/22 15:45 Ur Specific [place] <=1.005 (1.002-1.030) 05/04/22 15:45 Urine Protein 100 mg/dL (NEGATIVE) H 05/04/22 15:45 Urine Glucose (UA) NEGATIVE mg/dL (NEGATIVE) 05/04/22 15:45 Urine Ketones NEGATIVE mg/dL (NEGATIVE) 05/04/22 15:45 Urine Occult Blood MODERATE (NEGATIVE) H 05/04/22 15:45 Urine Nitrite POSITIVE (NEGATIVE) H 05/04/22 15:45 Urine Bilirubin NEGATIVE (NEGATIVE) 05/04/22 15:45 Urine Urobilinogen 1 (NORMAL) E.U./dL (NORMAL) 05/04/22 15:45 Ur Leukocyte Esterase LARGE (NEGATIVE) H 05/04/22 15:45 Urine RBC 6-10 /HPF (0-5) H 05/04/22 15:45 Urine WBC 11-25 /HPF (0-3) H 05/04/22 15:45 Ur Squamous Epith Cells NONE SEEN (<= Few) 05/04/22 15:45 Urine Crystals >50 Triple Phos /LPF 05/04/22 15:45 Amorphous Sediment Few /LPF 05/04/22 15:45 Urine Bacteria Many /HPF (None Seen) H 05/04/22 15:45 Urine Culture Comments INDICATED 05/04/22 15:45 Nasal Adenovirus (PCR) NOT DETECTED 05/04/22 15:15 Nasal B. parapertussis DNA (PCR) NOT DETECTED 05/04/22 15:15 Nasal Coronavir 229E PCR NOT DETECTED 05/04/22 15:15 Nasal Coronavir HKU1 PCR NOT DETECTED 05/04/22 15:15 Nasal Coronavir NL63 PCR NOT DETECTED 05/04/22 15:15 Nasal Coronavir OC43 PCR NOT DETECTED 05/04/22 15:15 Nasal Enterovir/Rhinovir PCR NOT DETECTED 05/04/22 15:15 Nasal Influenza B PCR NOT DETECTED 05/04/22 15:15 Nasal Influenza A PCR NOT DETECTED 05/04/22 15:15 Nasal Parainfluen 1 PCR NOT DETECTED 05/04/22 15:15 Nasal Parainfluen 2 PCR NOT DETECTED 05/04/22 15:15 Nasal Parainfluen 3 PCR NOT DETECTED 05/04/22 15:15 Nasal Parainfluen 4 PCR NOT DETECTED 05/04/22 15:15 Nasal RSV (PCR) NOT DETECTED 05/04/22 15:15 Nasal B.pertussis DNA PCR NOT DETECTED 05/04/22 15:15 Nasal C.pneumoniae (PCR) NOT DETECTED 05/04/22 15:15 Raz Human Metapneumo PCR NOT DETECTED 05/04/22 15:15 Nasal M.pneumoniae (PCR) NOT DETECTED 05/04/22 15:15 Nasal SARS-CoV-2 (PCR) NOT DETECTED 05/04/22 15:15
[2022-05-09] MEDS: SODIUM CHLORIDE FLUSH 0.9% 10 ML SYRINGE IVP SCH ×2 (00:10→08:33)
[2022-05-09] MEDS: PANTOPRAZOLE 40 MG TABLET PO SCH (05:03)
[2022-05-09 05:24] LABS: BASOPHILS % (AUTO) 0.6 %; EOSINOPHILS # (AUTO) 0.4 10^3/uL (0.0-0.7); EOSINOPHILS % (AUTO) 5.5 %; HCT - HEMATOCRIT 34.9 % (42.0-52.0); HGB - HEMOGLOBIN 10.5 g/dL (14.0-18.0); LYMPHOCYTES % (AUTO) 27.9 %; MEAN CORPUSCULAR HGB CONC 30.1 g/dL (32.0-36.0); MEAN CORPUSCULAR VOLUME 96.4 fL (80.0-94.0); MEAN PLATELET VOLUME 11.3 fL (7.4-11.4); MONOCYTES # (AUTO) 0.7 10^3/uL (0.0-1.0); MONOCYTES % (AUTO) 9.9 %; NEUTROPHILS # (AUTO) 3.9 10^3/uL (1.5-6.6); NEUTROPHILS % (AUTO) 53.9 %; PLT - PLATELET COUNT 215 10^3/uL (130-450); RED BLOOD COUNT 3.62 10^6/uL (4.70-6.10); RED CELL DISTRIBUTION WIDTH 13.6 % (12.0-15.0); WHITE BLOOD COUNT 7.3 x10^3/uL (4.8-10.8)
[2022-05-09 05:38] LABS: CALCIUM 8.9 mg/dL (8.5-10.3); CREATININE 1.2 mg/dL (0.6-1.2); POTASSIUM 4.1 mmol/L (3.5-5.0)
[2022-05-09] MEDS: ENOXAPARIN 40 MG/0.4 ML SYRINGE SUBQ SCH (08:32)
[2022-05-09] MEDS: SACCHAROMYCES BOULARDII 250 MG CAPSULE PO SCH (08:32)
[2022-05-09] MEDS: INSULIN LISPRO 300 UNIT/3 ML PEN SUBQ SCH ×2 (08:32→11:49)
[2022-05-09] MEDS: MULTIVITAMIN TABLET PO SCH (08:32)
[2022-05-09] MEDS: INSULIN GLARGINE-YFGN 300 UNIT/3 ML PEN SUBQ SCH (08:33)
--- NOTE | 2022-05-09 11:12 | Discharge Plan ---
"Discharge Plan for SNF / [facility] - Discharge Plan And Transition Orders Problem Reviewed?: Yes Disposition: 03 [facility] DC/Xfer Condition: Stable Allergies and Adverse Reactions: Allergies Allergy/AdvReac Type Severity Reaction Status Date / Time No Known Drug Allergies Allergy Verified 05/04/22 14:32 Health Concerns: The patient was admitted with weakness, diarrhea, elevated lactic acid level and a recurrent UTI. His Bryant catheter was changed. Proteus bacteria grew in his blood culture and the same Proteus grew in the urine culture. He received IV antibiotics then was changed to oral antibiotics. A repeat blood culture has shown no growth, after antibiotics were started. He is being discharged to finish a course of antibiotics. His strength improved as his infection was treated and he was then seen by Physical Therapy. He is at his baseline of being able to stand and walk with a walker and this PT evaluation recommended he have Home Health PT and OT, for further rehab for strengthening. Plan of Treatment: As above and new antibiotics plus a probiotic have been ordered. Care Goals: Improvement in symptoms and stabilization are the goals. Assessment: Orders are completed for him to return to [facility]. - SNF / INTERMEDIATE Transition Orders Admit to (Facility): [facility] Under the care of (Name): Dr Lee Ignacio Discharge Diagnosis: (1) Bacteremia due to Proteus species Finishing antibiotics, now oral (2) Pyelonephritis As in #1 (3) Recurrent UTI As in #1 (4) Chronic indwelling Bryant catheter Bryant was changed out (5) Insulin dependent diabetes mellitus His A1c is very good at 7.1. (6) Multi-infarct dementia Stable (7) Diarrhea Resolved (8) Acute kidney injury superimposed on CKD Resolved Medicare Certification Statement: I certify that Post Hospital custodial care is medically necessary on a continuing basis for any of the conditions for which she/he is receiving care during hospitalization. Notify PCP of admission and forward orders to primary provider for signature. Weight on admission and: Monthly Other Notification Orders: Call PCP immediately if patient develops dyspnea, chest pain/tightness or edema. House Bowel Program: Yes Additional Bowel Program Orders: If no BM after 2 days, nurse may give M.O.M. 30ml PO PRN and/or ducolax Supp 1 MD and/or ARAMIS 250mg P.O., and/or senna 1-2 tabs PO. On day 3 nurse may give repeat above order until residents constipation is resolved. Annual Influenza Vaccine (between Jan 20 and August 19): Yes Two-step PPD per [facility] [phone] or approved exception documents: Yes Treatments & Other Orders: Daily PT and OT with Home Health, a referral was sent Medication Orders: PLEASE REFER TO THE DISCHARGE MEDICATION LIST. Insulin Orders?: Yes - Medications New Prescriptions: cefUROXime axetiL [Ceftin] 500 mg PO BID 7 Days #28 tab Saccharomyces Boulardii [Florastor] 250 mg PO BIDWM 7 Days #14 cap - Diet Type: Geriatric Texture: Regular Liquids: Thin May have monthly special meal: Yes - Therapies | Activity Therapy: Evaluation | Treat if indicated: PT, OT Rehabilitation Potential: Maximize functional status Activity: Activity as Tolerated Weight Bearing: Full Weight Assistance Devices: Walker"
--- NOTE | 2022-05-09 11:26 | DISCHARGE SUMMARY ---
Discharge Summary Admit Date: 05/05/22 Discharge Date: 05/09/22 Discharging Provider: Dr Mili Allan Primary Care Provider: Dr Lee Ignacio or new assigned PCP Code Status: Do Not Attempt Resuscitation Condition at Discharge: Stable Discharge Disposition: 03 [facility] DC/Xfer - HPI History of Present Illness: This is a 65-year-old male with a PMH significantly for frequent UTI with chronic indwelling Bryant catheter, a left basal ganglia infarct and right cerebellar infarct, multi-infarct dementia, previously poorly controlled type 2 diabetes mellitus, CKD, hypertension, hyperlipidemia, coronary artery disease with an PA on 03/06/21, Hx of hemorrhagic colitis, multiple strokes in 2012, 2016 and admitted on 07/10/21 to [place] for dysarthria/cerebellar ataxia, Polysubstance with Methamphetamine abuse. The pt is living at [facility]. Pt is poor historian and is too lethargic to give a Hx. Pt was brought in by ambulance yesterday 05/04 from [facility], due to weakness, fever and diarrhea. He was found to be septic with elevated Lactic Acid level. A (recurrent) UTI was suspected. He was fully cultured and started on empiric Ceftriaxone (using the results of last pos urine cx several mos ago, which grew Providencia). His blood cx turned positive today 05/05, and has been identified by PCR as Proteus species. The ER provider reached out to the Hospitalist Team to admit him. His Code status is DNR. - HOSPITAL COURSE Hospital Course: (1) Bacteremia due to Proteus species He did present with sepsis to the ER, with a very high Lactic Acid level of 4.5 on 05/04, but had a normal white count of 5.4, while in the ER. The next day (the day of admission), the WBC increased to 18.1, but his lactic acid normalized after treatment was started while he was boarding in the ER. He was put on empiric iv Ceftriaxone, and iv fluids. His mentation improved the next day. When the Proteus sensitivites came back, he was changed to oral Cefuroxime BID and was discharged on this, and a probiotic, to complete a total 14-day course. (2) Pyelonephritis CT abd and pelvis was done after admission and showed pyelonephritis. (3) Recurrent UTI As per Hx. This episode may have been caused by diarrhea or due to the chronic Bryant. (4) Chronic indwelling Bryant catheter Bryant was changed out after admission. (5) Insulin dependent diabetes mellitus His A1c is now very good at 7.1. He was on a diabetic diet, Insulin and ss Insulin. (6) Multi-infarct dementia Stable (7) Diarrhea None further while admitted. (8) Acute kidney injury superimposed on CKD Creat in the ER was 2.6. This improved daily with iv hydration for several days. Creat at [facility] was 1.2. - ALLERGIES Allergies/Adverse Reactions: Allergies Allergy/AdvReac Type Severity Reaction Status Date / Time No Known Drug Allergies Allergy Verified 05/04/22 14:32 - MEDICATIONS Home Medications: Ambulatory Orders Medication Instructions Recorded Confirmed Doxazosin [Cardura] 1 mg PO QPM #30 tablet 08/27/18 05/06/22 Tamsulosin [Flomax] 0.4 mg PO DAILY #30 capsule 08/27/18 05/06/22 Insulin Glargine,Hum.rec.anlog 24 unit SUBQ DAILY 03/06/19 05/07/22 [Basaglar Kwikpen U-100] Acetaminophen 650 mg PO Q4HR PRN 03/07/19 05/06/22 Aspirin 325 mg PO DAILY 03/07/19 05/06/22 Atorvastatin Calcium 80 mg PO QPM 03/07/19 05/06/22 Clopidogrel [Plavix] 75 mg PO DAILY 03/07/19 05/06/22 Thiamine [Vitamin B-1] 100 mg PO DAILY 03/07/19 05/06/22 ondansetron HCL [Zofran] 8 mg PO Q8H PRN 03/07/19 05/07/22 Lisinopril [Zestril] 20 mg DAILY 09/03/19 05/06/22 Citalopram [CeleXA] 20 mg PO DAILY 12/16/19 05/06/22 Calcium Carbonate [Tums (Calcium 500 - 1,000 mg PO Q2H PRN 10/30/20 05/06/22 Carbonate 500mg)] Insulin Aspart [NovoLOG] 2 - 12 unit SUBQ TIDWM 10/30/20 05/07/22 Insulin Aspart [NovoLOG] 7 unit SUBQ TIDWM 10/30/20 05/07/22 Omeprazole [PriLOSEC] 20 mg PO DAILY 10/30/20 05/06/22 Amlodipine Besylate [Norvasc] 10 mg PO DAILY 09/21/21 05/06/22 Sulfamethox/Trimeth 800/160 1 tab PO BID 05/07/22 05/07/22 [Bactrim Ds] Saccharomyces Boulardii [Florastor] 250 mg PO BIDWM 7 Days #14 cap 05/09/22 cefUROXime axetiL [Ceftin] 500 mg PO BID 7 Days #28 tab 05/09/22 - PHYSICAL EXAM AT DISCHARGE General Appearance: positive: No acute distress, Alert, Other (Appears disheveled.) Eyes Bilateral: positive: Normal inspection, EOMI ENT: positive: ENT inspection nml, No signs of dehydration Neck: positive: Nml inspection, No JVD Respiratory: positive: No respiratory distress, Breath sounds nml Cardiovascular: positive: Regular rate & rhythm, No murmur Abdomen: positive: Non-tender, Nml bowel sounds, No distention Skin: positive: Warm, Dry Extremities: positive: Non-tender, No pedal edema Neurologic/Psychiatric: positive: Motor nml, Disoriented to time, Other (Poor istorian) - LABS Result Diagrams: 05/09/22 04:34 05/09/22 04:34 - DIAGNOSTIC IMAGING Diagnostic Imaging Results: Final report reviewed - FOLLOW UP Follow Up: See PCP in 1-2 week for a hospital follow-up visit. - TIME SPENT Time Spent in Discharge (Minutes): 45
[2022-05-09 17:02] VITALS: BP 142/78
== END 2022-05-09 15:40 | DRG 690 ==
LOC: EDUNIT# → ED 14:23 → MS3 05-05 12:16 → MS2 05-05 14:04
PROVIDERS: ADMIT Internal Medicine; ATTEND Internal Medicine
DX: A41.59 Other Gram-negative sepsis (principal); N39.0 Urinary tract infection, site not specified; R65.20 Severe sepsis without septic shock; N12 Tubulo-interstitial nephritis, not specified as acute or chronic; B96.4 Proteus (mirabilis) (morganii) as the cause of diseases classified elsewhere; I10 Essential (primary) hypertension; Z86.73 Personal history of transient ischemic attack (TIA), and cerebral infarction without residual deficits; E11.9 Type 2 diabetes mellitus without complications; F03.90 Unspecified dementia, unspecified severity, without behavioral disturbance, psychotic disturbance, mood disturbance, and anxiety; Z20.822 Contact with and (suspected) exposure to COVID-19; N40.1 Benign prostatic hyperplasia with lower urinary tract symptoms; R33.8 Other retention of urine; I69.319 Unspecified symptoms and signs involving cognitive functions following cerebral infarction; F01.50 Vascular dementia, unspecified severity, without behavioral disturbance, psychotic disturbance, mood disturbance, and anxiety; R19.7 Diarrhea, unspecified; N17.9 Acute kidney failure, unspecified; E11.22 Type 2 diabetes mellitus with diabetic chronic kidney disease; I12.9 Hypertensive chronic kidney disease with stage 1 through stage 4 chronic kidney disease, or unspecified chronic kidney disease; N18.9 Chronic kidney disease, unspecified; Z79.4 Long term (current) use of insulin; Z87.440 Personal history of urinary (tract) infections; Z96.0 Presence of urogenital implants; E78.5 Hyperlipidemia, unspecified; I25.10 Atherosclerotic heart disease of native coronary artery without angina pectoris; I25.2 Old myocardial infarction; F32.A Depression, unspecified; F41.9 Anxiety disorder, unspecified; G80.9 Cerebral palsy, unspecified; F15.11 Other stimulant abuse, in remission; R53.1 Weakness; Z66 Do not resuscitate
CPT/HCPCS: 36415; 71045; 74176; 80048; 80053; 81001; 83036; 83605; 83735; 84145; 85025; 87040; 87077; 87086; 87150; 87181; 87633; 96365; 96366; 96367; 96372; 97161; 97166; 99283; 99285; A9270; J0131; J1650; J1815

== ENCOUNTER → 2022-05-04 | Outpatient (CLI) | payer MEDICARE, MEDICAID | END | disposition critical access hospital (66) | LOC: EMS 14:04 | DX: R50.9 Fever, unspecified (principal); R53.1 Weakness; R11.2 Nausea with vomiting, unspecified; R53.83 Other fatigue; R39.89 Other symptoms and signs involving the genitourinary system | CPT/HCPCS: A0425; A0429 ==

== ENCOUNTER 2022-05-09 15:44 | Outpatient (CLI) | payer MEDICARE, MEDICAID | END 2022-05-09 15:45 | disposition home or self-care (01) | LOC: EMS 15:44 | PROVIDERS: ATTEND Internal Medicine | DX: N39.0 Urinary tract infection, site not specified (principal); F03.90 Unspecified dementia, unspecified severity, without behavioral disturbance, psychotic disturbance, mood disturbance, and anxiety; Z74.01 Bed confinement status | CPT/HCPCS: A0425; A0428 ==

== ENCOUNTER 2022-06-04 18:55 | Outpatient (CLI) | payer MEDICARE, MEDICAID | END 2022-06-04 18:56 | disposition critical access hospital (66) | LOC: EMS 18:55 | DX: U07.1 COVID-19 (principal); R50.9 Fever, unspecified | CPT/HCPCS: A0425; A0429 ==

== ENCOUNTER 2022-06-04 19:13 | Inpatient (IN) | payer MEDICARE, MEDICAID ==
[2022-06-04] MEDS ORDERED: SODIUM CHLORIDE 0.9% 1,000 ML IV STA (19:40)
[2022-06-04 19:58] LABS: BASOPHILS % (AUTO) 0.3 %; HCT - HEMATOCRIT 37.2 % (42.0-52.0); HGB - HEMOGLOBIN 12.3 g/dL (14.0-18.0); LYMPHOCYTES # (AUTO) 0.8 10^3/uL (1.5-3.5); LYMPHOCYTES % (AUTO) 5.1 %; MEAN CORPUSCULAR HEMOGLOBIN 29.4 pg (27.0-31.0); MEAN CORPUSCULAR HGB CONC 33.1 g/dL (32.0-36.0); MEAN CORPUSCULAR VOLUME 88.8 fL (80.0-94.0); MEAN PLATELET VOLUME 11.1 fL (7.4-11.4); MONOCYTES # (AUTO) 0.7 10^3/uL (0.0-1.0); MONOCYTES % (AUTO) 4.6 %; NEUTROPHILS # (AUTO) 13.4 10^3/uL (1.5-6.6); NEUTROPHILS % (AUTO) 89.7 %; PLT - PLATELET COUNT 296 10^3/uL (130-450); RED BLOOD COUNT 4.19 10^6/uL (4.70-6.10); RED CELL DISTRIBUTION WIDTH 12.7 % (12.0-15.0); WHITE BLOOD COUNT 14.9 x10^3/uL (4.8-10.8)
--- OUTSIDE RECORDS SUMMARY | 2022-06-04 20:00 | EXTERNAL MEDICAL SUMMARY RPT | Continuity of Care Document ---
:1955 Author Organization [facility] [address] [place] [address] Phone Care Team Providers Name Role Phone Unavailable Unavailable Unavailable Julio Cesar, Provider Unavailable Unavailable Allergies No information. Encounters No information. Functional Status No information. Immunizations No information. Medications No information. Problems date description facility 2022-03-08 00:00 Hypertensive disorder All 2022-03-08 00:00 Other and unspecified noninfectious gas troenteritis All and colitis 2022-03-08 00:00 Colitis All 2022-03-08 00:00 Essential (primary) hypertension All 2022-03-08 00:00 Noninfective gastroenteritis and coliti s, unspecified All 2022-03-10 00:00 Hypertensive disorder All 2022-03-10 00:00 Other and unspecified noninfectious gas troenteritis All and colitis 2022-03-10 00:00 Colitis All 2022-03-10 00:00 Essential (primary) hypertension All 2022-03-10 00:00 Noninfective gastroenteritis and coliti s, unspecified All 2022-03-11 00:00 Hypertensive disorder All 2022-03-11 00:00 Other and unspecified noninfectious gas troenteritis All and colitis 2022-03-11 00:00 Colitis All 2022-03-11 00:00 Essential (primary) hypertension All 2022-03-11 00:00 Noninfective gastroenteritis and coliti s, unspecified All 2022-04-04 00:00 Hypertensive disorder All 2022-04-04 00:00 Other and unspecified noninfectious gas troenteritis All and colitis 2022-04-04 00:00 Colitis All 2022-04-04 00:00 Essential (primary) hypertension All 2022-04-04 00:00 Noninfective gastroenteritis and coliti s, unspecified All 2022-04-05 00:00 Hypertensive disorder All 2022-04-05 00:00 Other and unspecified noninfectious gas troenteritis All and colitis 2022-04-05 00:00 Colitis All 2022-04-05 00:00 Essential (primary) hypertension All 2022-04-05 00:00 Noninfective gastroenteritis and coliti s, unspecified All 2022-04-06 00:00 Hypertensive disorder All 2022-04-06 00:00 Other and unspecified noninfectious gas troenteritis All and colitis 2022-04-06 00:00 Colitis All 2022-04-06 00:00 Essential (primary) hypertension All 2022-04-06 00:00 Noninfective gastroenteritis and coliti s, unspecified All 2022-04-07 00:00 Hypertensive disorder All 2022-04-07 00:00 Other and unspecified noninfectious gas troenteritis All and colitis 2022-04-07 00:00 Colitis All 2022-04-07 00:00 Essential (primary) hypertension All 2022-04-07 00:00 Noninfective gastroenteritis and coliti s, unspecified All 2022-04-08 00:00 Hypertensive disorder All 2022-04-08 00:00 Other and unspecified noninfectious gas troenteritis All and colitis 2022-04-08 00:00 Colitis All 2022-04-08 00:00 Essential (primary) hypertension All 2022-04-08 00:00 Noninfective gastroenteritis and coliti s, unspecified All 2022-04-11 00:00 Hypertensive disorder All 2022-04-11 00:00 Other and unspecified noninfectious gas troenteritis All and colitis 2022-04-11 00:00 Colitis All 2022-04-11 00:00 Essential (primary) hypertension All 2022-04-11 00:00 Noninfective gastroenteritis and coliti s, unspecified All 2022-05-04 00:00 Hypertensive disorder All 2022-05-04 00:00 Other and unspecified noninfectious gas troenteritis All and colitis 2022-05-04 00:00 Colitis All 2022-05-04 00:00 Essential (primary) hypertension All 2022-05-04 00:00 Noninfective gastroenteritis and coliti s, unspecified All 2022-05-05 00:00 Hypertensive disorder All 2022-05-05 00:00 Other and unspecified noninfectious gas troenteritis All and colitis 2022-05-05 00:00 Colitis All 2022-05-05 00:00 Essential (primary) hypertension All 2022-05-05 00:00 Noninfective gastroenteritis and coliti s, unspecified All 2022-05-06 00:00 Hypertensive disorder All 2022-05-06 00:00 Other and unspecified noninfectious gas troenteritis All and colitis 2022-05-06 00:00 Colitis All 2022-05-06 00:00 Essential (primary) hypertension All 2022-05-06 00:00 Noninfective gastroenteritis and coliti s, unspecified All 2022-05-07 00:00 Hypertensive disorder All 2022-05-07 00:00 Other and unspecified noninfectious gas troenteritis All and colitis 2022-05-07 00:00 Colitis All 2022-05-07 00:00 Essential (primary) hypertension All 2022-05-07 00:00 Noninfective gastroenteritis and coliti s, unspecified All 2022-05-08 00:00 Hypertensive disorder All 2022-05-08 00:00 Other and unspecified noninfectious gas troenteritis All and colitis 2022-05-08 00:00 Colitis All 2022-05-08 00:00 Essential (primary) hypertension All 2022-05-08 00:00 Noninfective gastroenteritis and coliti s, unspecified All 2022-05-09 00:00 Hypertensive disorder All 2022-05-09 00:00 Other and unspecified noninfectious gas troenteritis All and colitis 2022-05-09 00:00 Colitis All 2022-05-09 00:00 Essential (primary) hypertension All 2022-05-09 00:00 Noninfective gastroenteritis and coliti s, unspecified All 2022-05-11 00:00 Hypertensive disorder All 2022-05-11 00:00 Other and unspecified noninfectious gas troenteritis All and colitis 2022-05-11 00:00 Colitis All 2022-05-11 00:00 Essential (primary) hypertension All 2022-05-11 00:00 Noninfective gastroenteritis and coliti s, unspecified All 2022-06-04 00:00 Hypertensive disorder All 2022-06-04 00:00 Other and unspecified noninfectious gas troenteritis All and colitis 2022-06-04 00:00 Colitis All 2022-06-04 00:00 Essential (primary) hypertension All 2022-06-04 00:00 Noninfective gastroenteritis and coliti s, unspecified All Procedures No information. Results/Labs test date author facility value unit interpret ation Result panel 1 (unknown) (no date) (unknown) All (no value) (units unknown ) (unknown) Result panel 2 (unknown) (no date) (unknown) All (no value) (units unknown ) (unknown) Result panel 3 (unknown) (no date) (unknown) All (no value) (units unknown ) (unknown) Result panel 4 (unknown) (no date) (unknown) All (no value) (units unknown ) (unknown) Result panel 5 (unknown) (no date) (unknown) All (no value) (units unknown ) (unknown) Result panel 6 (unknown) (no date) (unknown) All (no value) (units unknown ) (unknown) Result panel 7 (unknown) (no date) (unknown) All (no value) (units unknown ) (unknown) Result panel 8 (unknown) (no date) (unknown) All (no value) (units unknown ) (unknown) Result panel 9 (unknown) (no date) (unknown) All (no value) (units unknown ) (unknown) Result panel 10 (unknown) (no date) (unknown) All (no value) (units unknown ) (unknown) Result panel 11 (unknown) (no date) (unknown) All (no value) (units unknown ) (unknown) Result panel 12 (unknown) (no date) (unknown) All (no value) (units unknown ) (unknown) Result panel 13 (unknown) (no date) (unknown) All (no value) (units unknown ) (unknown) Result panel 14 (unknown) (no date) (unknown) All (no value) (units unknown ) (unknown) Result panel 15 (unknown) (no date) (unknown) All (no value) (units unknown ) (unknown) Result panel 16 (unknown) (no date) (unknown) All (no value) (units unknown ) (unknown) Result panel 17 (unknown) (no date) (unknown) All (no value) (units unknown ) (unknown) Result panel 18 (unknown) (no date) (unknown) All (no value) (units unknown ) (unknown) Result panel 19 (unknown) (no date) (unknown) All (no value) (units unknown ) (unknown) Result panel 20 (unknown) (no date) (unknown) All (no value) (units unknown ) (unknown) Result panel 21 (unknown) (no date) (unknown) All (no value) (units unknown ) (unknown) Result panel 22 (unknown) (no date) (unknown) All (no value) (units unknown ) (unknown) Result panel 23 (unknown) (no date) (unknown) All (no value) (units unknown ) (unknown) Result panel 24 (unknown) (no date) (unknown) All (no value) (units unknown ) (unknown) Result panel 25 (unknown) (no date) (unknown) All (no value) (units unknown ) (unknown) Result panel 26 (unknown) (no date) (unknown) All (no value) (units unknown ) (unknown) Result panel 27 (unknown) (no date) (unknown) All (no value) (units unknown ) (unknown) Result panel 28 (unknown) (no date) (unknown) All (no value) (units unknown ) (unknown) Result panel 29 (unknown) (no date) (unknown) All (no value) (units unknown ) (unknown) Result panel 30 (unknown) (no date) (unknown) All (no value) (units unknown ) (unknown) Result panel 31 (unknown) (no date) (unknown) All (no value) (units unknown ) (unknown) Result panel 32 (unknown) (no date) (unknown) All (no value) (units unknown ) (unknown) Result panel 33 (unknown) (no date) (unknown) All (no value) (units unknown ) (unknown) Result panel 34 (unknown) (no date) (unknown) All (no value) (units unknown ) (unknown) Result panel 35 (unknown) (no date) (unknown) All (no value) (units unknown ) (unknown) Result panel 36 (unknown) (no date) (unknown) All (no value) (units unknown ) (unknown) Result panel 37 (unknown) (no date) (unknown) All (no value) (units unknown ) (unknown) Result panel 38 (unknown) (no date) (unknown) All (no value) (units unknown ) (unknown) Result panel 39 (unknown) (no date) (unknown) All (no value) (units unknown ) (unknown) Result panel 40 (unknown) (no date) (unknown) All (no value) (units unknown ) (unknown) Result panel 41 (unknown) (no date) (unknown) All (no value) (units unknown ) (unknown) Result panel 42 (unknown) (no date) (unknown) All (no value) (units unknown ) (unknown) Result panel 43 (unknown) (no date) (unknown) All (no value) (units unknown ) (unknown) Result panel 44 (unknown) (no date) (unknown) All (no value) (units unknown ) (unknown) Result panel 45 (unknown) (no date) (unknown) All (no value) (units unknown ) (unknown) Result panel 46 (unknown) (no date) (unknown) All (no value) (units unknown ) (unknown) Result panel 47 (unknown) (no date) (unknown) All (no value) (units unknown ) (unknown) Result panel 48 (unknown) (no date) (unknown) All (no value) (units unknown ) (unknown) Result panel 49 (unknown) (no date) (unknown) All (no value) (units unknown ) (unknown) Result panel 50 (unknown) (no date) (unknown) All (no value) (units unknown ) (unknown) Result panel 51 (unknown) (no date) (unknown) All (no value) (units unknown ) (unknown) Result panel 52 (unknown) (no date) (unknown) All (no value) (units unknown ) (unknown) Result panel 53 (unknown) (no date) (unknown) All (no value) (units unknown ) (unknown) Result panel 54 (unknown) (no date) (unknown) All (no value) (units unknown ) (unknown) Result panel 55 (unknown) (no date) (unknown) All (no value) (units unknown ) (unknown) Result panel 56 (unknown) (no date) (unknown) All (no value) (units unknown ) (unknown) Result panel 57 (unknown) (no date) (unknown) All (no value) (units unknown ) (unknown) Result panel 58 (unknown) (no date) (unknown) All (no value) (units unknown ) (unknown) Result panel 59 (unknown) (no date) (unknown) All (no value) (units unknown ) (unknown) Result panel 60 (unknown) (no date) (unknown) All (no value) (units unknown ) (unknown) Result panel 61 (unknown) (no date) (unknown) All (no value) (units unknown ) (unknown) Result panel 62 (unknown) (no date) (unknown) All (no value) (units unknown ) (unknown) Result panel 63 (unknown) (no date) (unknown) All (no value) (units unknown ) (unknown) Result panel 64 (unknown) (no date) (unknown) All (no value) (units unknown ) (unknown) Result panel 65 (unknown) (no date) (unknown) All (no value) (units unknown ) (unknown) Result panel 66 (unknown) (no date) (unknown) All (no value) (units unknown ) (unknown) Result panel 67 (unknown) (no date) (unknown) All (no value) (units unknown ) (unknown) Result panel 68 (unknown) (no date) (unknown) All (no value) (units unknown ) (unknown) Result panel 69 (unknown) (no date) (unknown) All (no value) (units unknown ) (unknown) Result panel 70 (unknown) (no date) (unknown) All (no value) (units unknown ) (unknown) Result panel 71 (unknown) (no date) (unknown) All (no value) (units unknown ) (unknown) Result panel 72 (unknown) (no date) (unknown) All (no value) (units unknown ) (unknown) Result panel 73 (unknown) (no date) (unknown) All (no value) (units unknown ) (unknown) Result panel 74 (unknown) (no date) (unknown) All (no value) (units unknown ) (unknown) Result panel 75 (unknown) (no date) (unknown) All (no value) (units unknown ) (unknown) Result panel 76 (unknown) (no date) (unknown) All (no value) (units unknown ) (unknown) Result panel 77 (unknown) (no date) (unknown) All (no value) (units unknown ) (unknown) Result panel 78 (unknown) (no date) (unknown) All (no value) (units unknown ) (unknown) Result panel 79 (unknown) (no date) (unknown) All (no value) (units unknown ) (unknown) Result panel 80 (unknown) (no date) (unknown) All (no value) (units unknown ) (unknown) Result panel 81 (unknown) (no date) (unknown) All (no value) (units unknown ) (unknown) Result panel 82 (unknown) (no date) (unknown) All (no value) (units unknown ) (unknown) Result panel 83 (unknown) (no date) (unknown) All (no value) (units unknown ) (unknown) Result panel 84 (unknown) (no date) (unknown) All (no value) (units unknown ) (unknown) Result panel 85 (unknown) (no date) (unknown) All (no value) (units unknown ) (unknown) Result panel 86 (unknown) (no date) (unknown) All (no value) (units unknown ) (unknown) Result panel 87 (unknown) (no date) (unknown) All (no value) (units unknown ) (unknown) Result panel 88 (unknown) (no date) (unknown) All (no value) (units unknown ) (unknown) Result panel 89 (unknown) (no date) (unknown) All (no value) (units unknown ) (unknown) Result panel 90 (unknown) (no date) (unknown) All (no value) (units unknown ) (unknown) Result panel 91 (unknown) (no date) (unknown) All (no value) (units unknown ) (unknown) Result panel 92 (unknown) (no date) (unknown) All (no value) (units unknown ) (unknown) Result panel 93 (unknown) (no date) (unknown) All (no value) (units unknown ) (unknown) Result panel 94 (unknown) (no date) (unknown) All (no value) (units unknown ) (unknown) Result panel 95 (unknown) (no date) (unknown) All (no value) (units unknown ) (unknown) Result panel 96 (unknown) (no date) (unknown) All (no value) (units unknown ) (unknown) Result panel 97 (unknown) (no date) (unknown) All (no value) (units unknown ) (unknown) Result panel 98 (unknown) (no date) (unknown) All (no value) (units unknown ) (unknown) Result panel 99 (unknown) (no date) (unknown) All (no value) (units unknown ) (unknown) Result panel 100 (unknown) (no date) (unknown) All (no value) (units unknown ) (unknown) Result panel 101 (unknown) (no date) (unknown) All (no value) (units unknown ) (unknown) Result panel 102 (unknown) (no date) (unknown) All (no value) (units unknown ) (unknown) Result panel 103 (unknown) (no date) (unknown) All (no value) (units unknown ) (unknown) Result panel 104 (unknown) (no date) (unknown) All (no value) (units unknown ) (unknown) Result panel 105 (unknown) (no date) (unknown) All (no value) (units unknown ) (unknown) Result panel 106 (unknown) (no date) (unknown) All (no value) (units unknown ) (unknown) Result panel 107 (unknown) (no date) (unknown) All (no value) (units unknown ) (unknown) Result panel 108 (unknown) (no date) (unknown) All (no value) (units unknown ) (unknown) Result panel 109 (unknown) (no date) (unknown) All (no value) (units unknown ) (unknown) Result panel 110 (unknown) (no date) (unknown) All (no value) (units unknown ) (unknown) Result panel 111 (unknown) (no date) (unknown) All (no value) (units unknown ) (unknown) Result panel 112 (unknown) (no date) (unknown) All (no value) (units unknown ) (unknown) Result panel 113 (unknown) (no date) (unknown) All (no value) (units unknown ) (unknown) Result panel 114 (unknown) (no date) (unknown) All (no value) (units unknown ) (unknown) Result panel 115 (unknown) (no date) (unknown) All (no value) (units unknown ) (unknown) Result panel 116 (unknown) (no date) (unknown) All (no value) (units unknown ) (unknown) Result panel 117 (unknown) (no date) (unknown) All (no value) (units unknown ) (unknown) Result panel 118 (unknown) (no date) (unknown) All (no value) (units unknown ) (unknown) Result panel 119 (unknown) (no date) (unknown) All (no value) (units unknown ) (unknown) Result panel 120 (unknown) (no date) (unknown) All (no value) (units unknown ) (unknown) Result panel 121 (unknown) (no date) (unknown) All (no value) (units unknown ) (unknown) Result panel 122 (unknown) (no date) (unknown) All (no value) (units unknown ) (unknown) Result panel 123 (unknown) (no date) (unknown) All (no value) (units unknown ) (unknown) Result panel 124 (unknown) (no date) (unknown) All (no value) (units unknown ) (unknown) Result panel 125 (unknown) (no date) (unknown) All (no value) (units unknown ) (unknown) Result panel 126 (unknown) (no date) (unknown) All (no value) (units unknown ) (unknown) Result panel 127 (unknown) (no date) (unknown) All (no value) (units unknown ) (unknown) Result panel 128 (unknown) (no date) (unknown) All (no value) (units unknown ) (unknown) Result panel 129 (unknown) (no date) (unknown) All (no value) (units unknown ) (unknown) Result panel 130 (unknown) (no date) (unknown) All (no value) (units unknown ) (unknown) Result panel 131 (unknown) (no date) (unknown) All (no value) (units unknown ) (unknown) Result panel 132 (unknown) (no date) (unknown) All (no value) (units unknown ) (unknown) Result panel 133 (unknown) (no date) (unknown) All (no value) (units unknown ) (unknown) Result panel 134 (unknown) (no date) (unknown) All (no value) (units unknown ) (unknown) Result panel 135 (unknown) (no date) (unknown) All (no value) (units unknown ) (unknown) Result panel 136 (unknown) (no date) (unknown) All (no value) (units unknown ) (unknown) Result panel 137 (unknown) (no date) (unknown) All (no value) (units unknown ) (unknown) Result panel 138 (unknown) (no date) (unknown) All (no value) (units unknown ) (unknown) Result panel 139 (unknown) (no date) (unknown) All (no value) (units unknown ) (unknown) Result panel 140 (unknown) (no date) (unknown) All (no value) (units unknown ) (unknown) Result panel 141 (unknown) (no date) (unknown) All (no value) (units unknown ) (unknown) Result panel 142 (unknown) (no date) (unknown) All (no value) (units unknown ) (unknown) Result panel 143 (unknown) (no date) (unknown) All (no value) (units unknown ) (unknown) Result panel 144 (unknown) (no date) (unknown) All (no value) (units unknown ) (unknown) Result panel 145 (unknown) (no date) (unknown) All (no value) (units unknown ) (unknown) Result panel 146 (unknown) (no date) (unknown) All (no value) (units unknown ) (unknown) Result panel 147 (unknown) (no date) (unknown) All (no value) (units unknown ) (unknown) Result panel 148 (unknown) (no date) (unknown) All (no value) (units unknown ) (unknown) Result panel 149 (unknown) (no date) (unknown) All (no value) (units unknown ) (unknown) Result panel 150 (unknown) (no date) (unknown) All (no value) (units unknown ) (unknown) Result panel 151 (unknown) (no date) (unknown) All (no value) (units unknown ) (unknown) Result panel 152 (unknown) (no date) (unknown) All (no value) (units unknown ) (unknown) Result panel 153 (unknown) (no date) (unknown) All (no value) (units unknown ) (unknown) Result panel 154 (unknown) (no date) (unknown) All (no value) (units unknown ) (unknown) Result panel 155 (unknown) (no date) (unknown) All (no value) (units unknown ) (unknown) Result panel 156 (unknown) (no date) (unknown) All (no value) (units unknown ) (unknown) Result panel 157 (unknown) (no date) (unknown) All (no value) (units unknown ) (unknown) Result panel 158 (unknown) (no date) (unknown) All (no value) (units unknown ) (unknown) Result panel 159 (unknown) (no date) (unknown) All (no value) (units unknown ) (unknown) Result panel 160 (unknown) (no date) (unknown) All (no value) (units unknown ) (unknown) Result panel 161 (unknown) (no date) (unknown) All (no value) (units unknown ) (unknown) Result panel 162 (unknown) (no date) (unknown) All (no value) (units unknown ) (unknown) Result panel 163 (unknown) (no date) (unknown) All (no value) (units unknown ) (unknown) Result panel 164 (unknown) (no date) (unknown) All (no value) (units unknown ) (unknown) Result panel 165 (unknown) (no date) (unknown) All (no value) (units unknown ) (unknown) Result panel 166 (unknown) (no date) (unknown) All (no value) (units unknown ) (unknown) Result panel 167 (unknown) (no date) (unknown) All (no value) (units unknown ) (unknown) Result panel 168 (unknown) (no date) (unknown) All (no value) (units unknown ) (unknown) Result panel 169 (unknown) (no date) (unknown) All (no value) (units unknown ) (unknown) Result panel 170 (unknown) (no date) (unknown) All (no value) (units unknown ) (unknown) Result panel 171 (unknown) (no date) (unknown) All (no value) (units unknown ) (unknown) Result panel 172 (unknown) (no date) (unknown) All (no value) (units unknown ) (unknown) Result panel 173 (unknown) (no date) (unknown) All (no value) (units unknown ) (unknown) Result panel 174 (unknown) (no date) (unknown) All (no value) (units unknown ) (unknown) Result panel 175 (unknown) (no date) (unknown) All (no value) (units unknown ) (unknown) Result panel 176 (unknown) (no date) (unknown) All (no value) (units unknown ) (unknown) Result panel 177 (unknown) (no date) (unknown) All (no value) (units unknown ) (unknown) Result panel 178 (unknown) (no date) (unknown) All (no value) (units unknown ) (unknown) Result panel 179 (unknown) (no date) (unknown) All (no value) (units unknown ) (unknown) Result panel 180 (unknown) (no date) (unknown) All (no value) (units unknown ) (unknown) Result panel 181 (unknown) (no date) (unknown) All (no value) (units unknown ) (unknown) Result panel 182 (unknown) (no date) (unknown) All (no value) (units unknown ) (unknown) Result panel 183 (unknown) (no date) (unknown) All (no value) (units unknown ) (unknown) Result panel 184 (unknown) (no date) (unknown) All (no value) (units unknown ) (unknown) Result panel 185 (unknown) (no date) (unknown) All (no value) (units unknown ) (unknown) Result panel 186 (unknown) (no date) (unknown) All (no value) (units unknown ) (unknown) Result panel 187 (unknown) (no date) (unknown) All (no value) (units unknown ) (unknown) Result panel 188 (unknown) (no date) (unknown) All (no value) (units unknown ) (unknown) Result panel 189 (unknown) (no date) (unknown) All (no value) (units unknown ) (unknown) Result panel 190 (unknown) (no date) (unknown) All (no value) (units unknown ) (unknown) Result panel 191 (unknown) (no date) (unknown) All (no value) (units unknown ) (unknown) Result panel 192 (unknown) (no date) (unknown) All (no value) (units unknown ) (unknown) Result panel 193 (unknown) (no date) (unknown) All (no value) (units unknown ) (unknown) Result panel 194 (unknown) (no date) (unknown) All (no value) (units unknown ) (unknown) Result panel 195 (unknown) (no date) (unknown) All (no value) (units unknown ) (unknown) Result panel 196 (unknown) (no date) (unknown) All (no value) (units unknown ) (unknown) Result panel 197 (unknown) (no date) (unknown) All (no value) (units unknown ) (unknown) Result panel 198 (unknown) (no date) (unknown) All (no value) (units unknown ) (unknown) Result panel 199 (unknown) (no date) (unknown) All (no value) (units unknown ) (unknown) Result panel 200 (unknown) (no date) (unknown) All (no value) (units unknown ) (unknown) Result panel 201 (unknown) (no date) (unknown) All (no value) (units unknown ) (unknown) Result panel 202 (unknown) (no date) (unknown) All (no value) (units unknown ) (unknown) Result panel 203 (unknown) (no date) (unknown) All (no value) (units unknown ) (unknown) Result panel 204 (unknown) (no date) (unknown) All (no value) (units unknown ) (unknown) Result panel 205 (unknown) (no date) (unknown) All (no value) (units unknown ) (unknown) Result panel 206 (unknown) (no date) (unknown) All (no value) (units unknown ) (unknown) Result panel 207 (unknown) (no date) (unknown) All (no value) (units unknown ) (unknown) Result panel 208 (unknown) (no date) (unknown) All (no value) (units unknown ) (unknown) Result panel 209 (unknown) (no date) (unknown) All (no value) (units unknown ) (unknown) Result panel 210 (unknown) (no date) (unknown) All (no value) (units unknown ) (unknown) Result panel 211 (unknown) (no date) (unknown) All (no value) (units unknown ) (unknown) Result panel 212 (unknown) (no date) (unknown) All (no value) (units unknown ) (unknown) Result panel 213 (unknown) (no date) (unknown) All (no value) (units unknown ) (unknown) Result panel 214 (unknown) (no date) (unknown) All (no value) (units unknown ) (unknown) Result panel 215 (unknown) (no date) (unknown) All (no value) (units unknown ) (unknown) Result panel 216 (unknown) (no date) (unknown) All (no value) (units unknown ) (unknown) Result panel 217 (unknown) (no date) (unknown) All (no value) (units unknown ) (unknown) Result panel 218 (unknown) (no date) (unknown) All (no value) (units unknown ) (unknown) Result panel 219 (unknown) (no date) (unknown) All (no value) (units unknown ) (unknown) Result panel 220 (unknown) (no date) (unknown) All (no value) (units unknown ) (unknown) Result panel 221 (unknown) (no date) (unknown) All (no value) (units unknown ) (unknown) Result panel 222 (unknown) (no date) (unknown) All (no value) (units unknown ) (unknown) Result panel 223 (unknown) (no date) (unknown) All (no value) (units unknown ) (unknown) Result panel 224 (unknown) (no date) (unknown) All (no value) (units unknown ) (unknown) Result panel 225 (unknown) (no date) (unknown) All (no value) (units unknown ) (unknown) Result panel 226 (unknown) (no date) (unknown) All (no value) (units unknown ) (unknown) Result panel 227 (unknown) (no date) (unknown) All (no value) (units unknown ) (unknown) Result panel 228 (unknown) (no date) (unknown) All (no value) (units unknown ) (unknown) Result panel 229 (unknown) (no date) (unknown) All (no value) (units unknown ) (unknown) Result panel 230 (unknown) (no date) (unknown) All (no value) (units unknown ) (unknown) Result panel 231 (unknown) (no date) (unknown) All (no value) (units unknown ) (unknown) Result panel 232 (unknown) (no date) (unknown) All (no value) (units unknown ) (unknown) Result panel 233 (unknown) (no date) (unknown) All (no value) (units unknown ) (unknown) Result panel 234 (unknown) (no date) (unknown) All (no value) (units unknown ) (unknown) Result panel 235 (unknown) (no date) (unknown) All (no value) (units unknown ) (unknown) Result panel 236 (unknown) (no date) (unknown) All (no value) (units unknown ) (unknown) Result panel 237 (unknown) (no date) (unknown) All (no value) (units unknown ) (unknown) Result panel 238 (unknown) (no date) (unknown) All (no value) (units unknown ) (unknown) Result panel 239 (unknown) (no date) (unknown) All (no value) (units unknown ) (unknown) Result panel 240 (unknown) (no date) (unknown) All (no value) (units unknown ) (unknown) Result panel 241 (unknown) (no date) (unknown) All (no value) (units unknown ) (unknown) Result panel 242 (unknown) (no date) (unknown) All (no value) (units unknown ) (unknown) Result panel 243 (unknown) (no date) (unknown) All (no value) (units unknown ) (unknown) Result panel 244 (unknown) (no date) (unknown) All (no value) (units unknown ) (unknown) Result panel 245 (unknown) (no date) (unknown) All (no value) (units unknown ) (unknown) Result panel 246 (unknown) (no date) (unknown) All (no value) (units unknown ) (unknown) Result panel 247 (unknown) (no date) (unknown) All (no value) (units unknown ) (unknown) Result panel 248 (unknown) (no date) (unknown) All (no value) (units unknown ) (unknown) Result panel 249 (unknown) (no date) (unknown) All (no value) (units unknown ) (unknown) Result panel 250 (unknown) (no date) (unknown) All (no value) (units unknown ) (unknown) Result panel 251 (unknown) (no date) (unknown) All (no value) (units unknown ) (unknown) Result panel 252 (unknown) (no date) (unknown) All (no value) (units unknown ) (unknown) Result panel 253 (unknown) (no date) (unknown) All (no value) (units unknown ) (unknown) Result panel 254 (unknown) (no date) (unknown) All (no value) (units unknown ) (unknown) Result panel 255 (unknown) (no date) (unknown) All (no value) (units unknown ) (unknown) Result panel 256 (unknown) (no date) (unknown) All (no value) (units unknown ) (unknown) Result panel 257 (unknown) (no date) (unknown) All (no value) (units unknown ) (unknown) Result panel 258 (unknown) (no date) (unknown) All (no value) (units unknown ) (unknown) Result panel 259 (unknown) (no date) (unknown) All (no value) (units unknown ) (unknown) Result panel 260 (unknown) (no date) (unknown) All (no value) (units unknown ) (unknown) Result panel 261 (unknown) (no date) (unknown) All (no value) (units unknown ) (unknown) Result panel 262 (unknown) (no date) (unknown) All (no value) (units unknown ) (unknown) Result panel 263 (unknown) (no date) (unknown) All (no value) (units unknown ) (unknown) Result panel 264 (unknown) (no date) (unknown) All (no value) (units unknown ) (unknown) Result panel 265 (unknown) (no date) (unknown) All (no value) (units unknown ) (unknown) Result panel 266 (unknown) (no date) (unknown) All (no value) (units unknown ) (unknown) Result panel 267 (unknown) (no date) (unknown) All (no value) (units unknown ) (unknown) Result panel 268 (unknown) (no date) (unknown) All (no value) (units unknown ) (unknown) Result panel 269 (unknown) (no date) (unknown) All (no value) (units unknown ) (unknown) Result panel 270 (unknown) (no date) (unknown) All (no value) (units unknown ) (unknown) Result panel 271 (unknown) (no date) (unknown) All (no value) (units unknown ) (unknown) Result panel 272 (unknown) (no date) (unknown) All (no value) (units unknown ) (unknown) Result panel 273 (unknown) (no date) (unknown) All (no value) (units unknown ) (unknown) Result panel 274 (unknown) (no date) (unknown) All (no value) (units unknown ) (unknown) Result panel 275 (unknown) (no date) (unknown) All (no value) (units unknown ) (unknown) Result panel 276 (unknown) (no date) (unknown) All (no value) (units unknown ) (unknown) Result panel 277 (unknown) (no date) (unknown) All (no value) (units unknown ) (unknown) Result panel 278 (unknown) (no date) (unknown) All (no value) (units unknown ) (unknown) Result panel 279 (unknown) (no date) (unknown) All (no value) (units unknown ) (unknown) Result panel 280 (unknown) (no date) (unknown) All (no value) (units unknown ) (unknown) Result panel 281 (unknown) (no date) (unknown) All (no value) (units unknown ) (unknown) Result panel 282 (unknown) (no date) (unknown) All (no value) (units unknown ) (unknown) Result panel 283 (unknown) (no date) (unknown) All (no value) (units unknown ) (unknown) Result panel 284 (unknown) (no date) (unknown) All (no value) (units unknown ) (unknown) Result panel 285 (unknown) (no date) (unknown) All (no value) (units unknown ) (unknown) Result panel 286 (unknown) (no date) (unknown) All (no value) (units unknown ) (unknown) Result panel 287 (unknown) (no date) (unknown) All (no value) (units unknown ) (unknown) Result panel 288 (unknown) (no date) (unknown) All (no value) (units unknown ) (unknown) Result panel 289 (unknown) (no date) (unknown) All (no value) (units unknown ) (unknown) Result panel 290 (unknown) (no date) (unknown) All (no value) (units unknown ) (unknown) Result panel 291 (unknown) (no date) (unknown) All (no value) (units unknown ) (unknown) Result panel 292 (unknown) (no date) (unknown) All (no value) (units unknown ) (unknown) Result panel 293 (unknown) (no date) (unknown) All (no value) (units unknown ) (unknown) Result panel 294 (unknown) (no date) (unknown) All (no value) (units unknown ) (unknown) Result panel 295 (unknown) (no date) (unknown) All (no value) (units unknown ) (unknown) Result panel 296 (unknown) (no date) (unknown) All (no value) (units unknown ) (unknown) Result panel 297 (unknown) (no date) (unknown) All (no value) (units unknown ) (unknown) Result panel 298 (unknown) (no date) (unknown) All (no value) (units unknown ) (unknown) Result panel 299 (unknown) (no date) (unknown) All (no value) (units unknown ) (unknown) Result panel 300 (unknown) (no date) (unknown) All (no value) (units unknown ) (unknown) Result panel 301 (unknown) (no date) (unknown) All (no value) (units unknown ) (unknown) Result panel 302 (unknown) (no date) (unknown) All (no value) (units unknown ) (unknown) Result panel 303 (unknown) (no date) (unknown) All (no value) (units unknown ) (unknown) Result panel 304 (unknown) (no date) (unknown) All (no value) (units unknown ) (unknown) Result panel 305 (unknown) (no date) (unknown) All (no value) (units unknown ) (unknown) Result panel 306 (unknown) (no date) (unknown) All (no value) (units unknown ) (unknown) Result panel 307 (unknown) (no date) (unknown) All (no value) (units unknown ) (unknown) Result panel 308 (unknown) (no date) (unknown) All (no value) (units unknown ) (unknown) Result panel 309 (unknown) (no date) (unknown) All (no value) (units unknown ) (unknown) Result panel 310 (unknown) (no date) (unknown) All (no value) (units unknown ) (unknown) Result panel 311 (unknown) (no date) (unknown) All (no value) (units unknown ) (unknown) Result panel 312 (unknown) (no date) (unknown) All (no value) (units unknown ) (unknown) Result panel 313 (unknown) (no date) (unknown) All (no value) (units unknown ) (unknown) Result panel 314 (unknown) (no date) (unknown) All (no value) (units unknown ) (unknown) Result panel 315 (unknown) (no date) (unknown) All (no value) (units unknown ) (unknown) Result panel 316 (unknown) (no date) (unknown) All (no value) (units unknown ) (unknown) Result panel 317 (unknown) (no date) (unknown) All (no value) (units unknown ) (unknown) Result panel 318 (unknown) (no date) (unknown) All (no value) (units unknown ) (unknown) Result panel 319 (unknown) (no date) (unknown) All (no value) (units unknown ) (unknown) Result panel 320 (unknown) (no date) (unknown) All (no value) (units unknown ) (unknown) Result panel 321 (unknown) (no date) (unknown) All (no value) (units unknown ) (unknown) Result panel 322 (unknown) (no date) (unknown) All (no value) (units unknown ) (unknown) Result panel 323 (unknown) (no date) (unknown) All (no value) (units unknown ) (unknown) Result panel 324 (unknown) (no date) (unknown) All (no value) (units unknown ) (unknown) Result panel 325 (unknown) (no date) (unknown) All (no value) (units unknown ) (unknown) Result panel 326 (unknown) (no date) (unknown) All (no value) (units unknown ) (unknown) Result panel 327 (unknown) (no date) (unknown) All (no value) (units unknown ) (unknown) Result panel 328 (unknown) (no date) (unknown) All (no value) (units unknown ) (unknown) Result panel 329 (unknown) (no date) (unknown) All (no value) (units unknown ) (unknown) Result panel 330 (unknown) (no date) (unknown) All (no value) (units unknown ) (unknown) Result panel 331 (unknown) (no date) (unknown) All (no value) (units unknown ) (unknown) Result panel 332 (unknown) (no date) (unknown) All (no value) (units unknown ) (unknown) Result panel 333 (unknown) (no date) (unknown) All (no value) (units unknown ) (unknown) Result panel 334 (unknown) (no date) (unknown) All (no value) (units unknown ) (unknown) Result panel 335 (unknown) (no date) (unknown) All (no value) (units unknown ) (unknown) Result panel 336 (unknown) (no date) (unknown) All (no value) (units unknown ) (unknown) Result panel 337 (unknown) (no date) (unknown) All (no value) (units unknown ) (unknown) Result panel 338 (unknown) (no date) (unknown) All (no value) (units unknown ) (unknown) Result panel 339 (unknown) (no date) (unknown) All (no value) (units unknown ) (unknown) Result panel 340 (unknown) (no date) (unknown) All (no value) (units unknown ) (unknown) Result panel 341 (unknown) (no date) (unknown) All (no value) (units unknown ) (unknown) Result panel 342 (unknown) (no date) (unknown) All (no value) (units unknown ) (unknown) Result panel 343 (unknown) (no date) (unknown) All (no value) (units unknown ) (unknown) Result panel 344 (unknown) (no date) (unknown) All (no value) (units unknown ) (unknown) Result panel 345 (unknown) (no date) (unknown) All (no value) (units unknown ) (unknown) Result panel 346 (unknown) (no date) (unknown) All (no value) (units unknown ) (unknown) Result panel 347 (unknown) (no date) (unknown) All (no value) (units unknown ) (unknown) Result panel 348 (unknown) (no date) (unknown) All (no value) (units unknown ) (unknown) Result panel 349 (unknown) (no date) (unknown) All (no value) (units unknown ) (unknown) Result panel 350 (unknown) (no date) (unknown) All (no value) (units unknown ) (unknown) Result panel 351 (unknown) (no date) (unknown) All (no value) (units unknown ) (unknown) Result panel 352 (unknown) (no date) (unknown) All (no value) (units unknown ) (unknown) Result panel 353 (unknown) (no date) (unknown) All (no value) (units unknown ) (unknown) Result panel 354 (unknown) (no date) (unknown) All (no value) (units unknown ) (unknown) Result panel 355 (unknown) (no date) (unknown) All (no value) (units unknown ) (unknown) Result panel 356 (unknown) (no date) (unknown) All (no value) (units unknown ) (unknown) Result panel 357 (unknown) (no date) (unknown) All (no value) (units unknown ) (unknown) Result panel 358 (unknown) (no date) (unknown) All (no value) (units unknown ) (unknown) Result panel 359 (unknown) (no date) (unknown) All (no value) (units unknown ) (unknown) Result panel 360 (unknown) (no date) (unknown) All (no value) (units unknown ) (unknown) Result panel 361 (unknown) (no date) (unknown) All (no value) (units unknown ) (unknown) Result panel 362 (unknown) (no date) (unknown) All (no value) (units unknown ) (unknown) Result panel 363 (unknown) (no date) (unknown) All (no value) (units unknown ) (unknown) Result panel 364 (unknown) (no date) (unknown) All (no value) (units unknown ) (unknown) Result panel 365 (unknown) (no date) (unknown) All (no value) (units unknown ) (unknown) Result panel 366 (unknown) (no date) (unknown) All (no value) (units unknown ) (unknown) Result panel 367 (unknown) (no date) (unknown) All (no value) (units unknown ) (unknown) Result panel 368 (unknown) (no date) (unknown) All (no value) (units unknown ) (unknown) Result panel 369 (unknown) (no date) (unknown) All (no value) (units unknown ) (unknown) Result panel 370 (unknown) (no date) (unknown) All (no value) (units unknown ) (unknown) Result panel 371 (unknown) (no date) (unknown) All (no value) (units unknown ) (unknown) Result panel 372 (unknown) (no date) (unknown) All (no value) (units unknown ) (unknown) Result panel 373 (unknown) (no date) (unknown) All (no value) (units unknown ) (unknown) Result panel 374 (unknown) (no date) (unknown) All (no value) (units unknown ) (unknown) Result panel 375 (unknown) (no date) (unknown) All (no value) (units unknown ) (unknown) Result panel 376 (unknown) (no date) (unknown) All (no value) (units unknown ) (unknown) Result panel 377 (unknown) (no date) (unknown) All (no value) (units unknown ) (unknown) Result panel 378 (unknown) (no date) (unknown) All (no value) (units unknown ) (unknown) Result panel 379 (unknown) (no date) (unknown) All (no value) (units unknown ) (unknown) Result panel 380 (unknown) (no date) (unknown) All (no value) (units unknown ) (unknown) Result panel 381 (unknown) (no date) (unknown) All (no value) (units unknown ) (unknown) Result panel 382 (unknown) (no date) (unknown) All (no value) (units unknown ) (unknown) Result panel 383 (unknown) (no date) (unknown) All (no value) (units unknown ) (unknown) Result panel 384 (unknown) (no date) (unknown) All (no value) (units unknown ) (unknown) Result panel 385 (unknown) (no date) (unknown) All (no value) (units unknown ) (unknown) Result panel 386 (unknown) (no date) (unknown) All (no value) (units unknown ) (unknown) Result panel 387 (unknown) (no date) (unknown) All (no value) (units unknown ) (unknown) Result panel 388 (unknown) (no date) (unknown) All (no value) (units unknown ) (unknown) Result panel 389 (unknown) (no date) (unknown) All (no value) (units unknown ) (unknown) Result panel 390 (unknown) (no date) (unknown) All (no value) (units unknown ) (unknown) Result panel 391 (unknown) (no date) (unknown) All (no value) (units unknown ) (unknown) Result panel 392 (unknown) (no date) (unknown) All (no value) (units unknown ) (unknown) Result panel 393 (unknown) (no date) (unknown) All (no value) (units unknown ) (unknown) Result panel 394 (unknown) (no date) (unknown) All (no value) (units unknown ) (unknown) Result panel 395 (unknown) (no date) (unknown) All (no value) (units unknown ) (unknown) Result panel 396 (unknown) (no date) (unknown) All (no value) (units unknown ) (unknown) Result panel 397 (unknown) (no date) (unknown) All (no value) (units unknown ) (unknown) Result panel 398 (unknown) (no date) (unknown) All (no value) (units unknown ) (unknown) Result panel 399 (unknown) (no date) (unknown) All (no value) (units unknown ) (unknown) Result panel 400 (unknown) (no date) (unknown) All (no value) (units unknown ) (unknown) Result panel 401 (unknown) (no date) (unknown) All (no value) (units unknown ) (unknown) Result panel 402 (unknown) (no date) (unknown) All (no value) (units unknown ) (unknown) Result panel 403 (unknown) (no date) (unknown) All (no value) (units unknown ) (unknown) Result panel 404 (unknown) (no date) (unknown) All (no value) (units unknown ) (unknown) Result panel 405 (unknown) (no date) (unknown) All (no value) (units unknown ) (unknown) Result panel 406 (unknown) (no date) (unknown) All (no value) (units unknown ) (unknown) Result panel 407 (unknown) (no date) (unknown) All (no value) (units unknown ) (unknown) Result panel 408 (unknown) (no date) (unknown) All (no value) (units unknown ) (unknown) Result panel 409 (unknown) (no date) (unknown) All (no value) (units unknown ) (unknown) Result panel 410 (unknown) (no date) (unknown) All (no value) (units unknown ) (unknown) Result panel 411 (unknown) (no date) (unknown) All (no value) (units unknown ) (unknown) Result panel 412 (unknown) (no date) (unknown) All (no value) (units unknown ) (unknown) Result panel 413 (unknown) (no date) (unknown) All (no value) (units unknown ) (unknown) Result panel 414 (unknown) (no date) (unknown) All (no value) (units unknown ) (unknown) Result panel 415 (unknown) (no date) (unknown) All (no value) (units unknown ) (unknown) Result panel 416 (unknown) (no date) (unknown) All (no value) (units unknown ) (unknown) Result panel 417 (unknown) (no date) (unknown) All (no value) (units unknown ) (unknown) Result panel 418 (unknown) (no date) (unknown) All (no value) (units unknown ) (unknown) Result panel 419 (unknown) (no date) (unknown) All (no value) (units unknown ) (unknown) Result panel 420 (unknown) (no date) (unknown) All (no value) (units unknown ) (unknown) Result panel 421 (unknown) (no date) (unknown) All (no value) (units unknown ) (unknown) Result panel 422 (unknown) (no date) (unknown) All (no value) (units unknown ) (unknown) Result panel 423 (unknown) (no date) (unknown) All (no value) (units unknown ) (unknown) Result panel 424 (unknown) (no date) (unknown) All (no value) (units unknown ) (unknown) Result panel 425 (unknown) (no date) (unknown) All (no value) (units unknown ) (unknown) Result panel 426 (unknown) (no date) (unknown) All (no value) (units unknown ) (unknown) Result panel 427 (unknown) (no date) (unknown) All (no value) (units unknown ) (unknown) Result panel 428 (unknown) (no date) (unknown) All (no value) (units unknown ) (unknown) Result panel 429 (unknown) (no date) (unknown) All (no value) (units unknown ) (unknown) Result panel 430 (unknown) (no date) (unknown) All (no value) (units unknown ) (unknown) Result panel 431 (unknown) (no date) (unknown) All (no value) (units unknown ) (unknown) Result panel 432 (unknown) (no date) (unknown) All (no value) (units unknown ) (unknown) Result panel 433 (unknown) (no date) (unknown) All (no value) (units unknown ) (unknown) Result panel 434 (unknown) (no date) (unknown) All (no value) (units unknown ) (unknown) Result panel 435 (unknown) (no date) (unknown) All (no value) (units unknown ) (unknown) Result panel 436 (unknown) (no date) (unknown) All (no value) (units unknown ) (unknown) Result panel 437 (unknown) (no date) (unknown) All (no value) (units unknown ) (unknown) Result panel 438 (unknown) (no date) (unknown) All (no value) (units unknown ) (unknown) Result panel 439 (unknown) (no date) (unknown) All (no value) (units unknown ) (unknown) Result panel 440 (unknown) (no date) (unknown) All (no value) (units unknown ) (unknown) Result panel 441 (unknown) (no date) (unknown) All (no value) (units unknown ) (unknown) Result panel 442 (unknown) (no date) (unknown) All (no value) (units unknown ) (unknown) Result panel 443 (unknown) (no date) (unknown) All (no value) (units unknown ) (unknown) Result panel 444 (unknown) (no date) (unknown) All (no value) (units unknown ) (unknown) Result panel 445 (unknown) (no date) (unknown) All (no value) (units unknown ) (unknown) Result panel 446 (unknown) (no date) (unknown) All (no value) (units unknown ) (unknown) Result panel 447 (unknown) (no date) (unknown) All (no value) (units unknown ) (unknown) Result panel 448 (unknown) (no date) (unknown) All (no value) (units unknown ) (unknown) Result panel 449 (unknown) (no date) (unknown) All (no value) (units unknown ) (unknown) Result panel 450 (unknown) (no date) (unknown) All (no value) (units unknown ) (unknown) Result panel 451 (unknown) (no date) (unknown) All (no value) (units unknown ) (unknown) Result panel 452 (unknown) (no date) (unknown) All (no value) (units unknown ) (unknown) Result panel 453 (unknown) (no date) (unknown) All (no value) (units unknown ) (unknown) Result panel 454 (unknown) (no date) (unknown) All (no value) (units unknown ) (unknown) Result panel 455 (unknown) (no date) (unknown) All (no value) (units unknown ) (unknown) Result panel 456 (unknown) (no date) (unknown) All (no value) (units unknown ) (unknown) Result panel 457 (unknown) (no date) (unknown) All (no value) (units unknown ) (unknown) Result panel 458 (unknown) (no date) (unknown) All (no value) (units unknown ) (unknown) Result panel 459 (unknown) (no date) (unknown) All (no value) (units unknown ) (unknown) Result panel 460 (unknown) (no date) (unknown) All (no value) (units unknown ) (unknown) Result panel 461 (unknown) (no date) (unknown) All (no value) (units unknown ) (unknown) Result panel 462 (unknown) (no date) (unknown) All (no value) (units unknown ) (unknown) Result panel 463 (unknown) (no date) (unknown) All (no value) (units unknown ) (unknown) Result panel 464 (unknown) (no date) (unknown) All (no value) (units unknown ) (unknown) Result panel 465 (unknown) (no date) (unknown) All (no value) (units unknown ) (unknown) Result panel 466 (unknown) (no date) (unknown) All (no value) (units unknown ) (unknown) Result panel 467 (unknown) (no date) (unknown) All (no value) (units unknown ) (unknown) Result panel 468 (unknown) (no date) (unknown) All (no value) (units unknown ) (unknown) Result panel 469 (unknown) (no date) (unknown) All (no value) (units unknown ) (unknown) Result panel 470 (unknown) (no date) (unknown) All (no value) (units unknown ) (unknown) Result panel 471 (unknown) (no date) (unknown) All (no value) (units unknown ) (unknown) Result panel 472 (unknown) (no date) (unknown) All (no value) (units unknown ) (unknown) Result panel 473 (unknown) (no date) (unknown) All (no value) (units unknown ) (unknown) Result panel 474 (unknown) (no date) (unknown) All (no value) (units unknown ) (unknown) Result panel 475 (unknown) (no date) (unknown) All (no value) (units unknown ) (unknown) Result panel 476 (unknown) (no date) (unknown) All (no value) (units unknown ) (unknown) Result panel 477 (unknown) (no date) (unknown) All (no value) (units unknown ) (unknown) Result panel 478 (unknown) (no date) (unknown) All (no value) (units unknown ) (unknown) Result panel 479 (unknown) (no date) (unknown) All (no value) (units unknown ) (unknown) Result panel 480 (unknown) (no date) (unknown) All (no value) (units unknown ) (unknown) Result panel 481 (unknown) (no date) (unknown) All (no value) (units unknown ) (unknown) Result panel 482 (unknown) (no date) (unknown) All (no value) (units unknown ) (unknown) Result panel 483 (unknown) (no date) (unknown) All (no value) (units unknown ) (unknown) Result panel 484 (unknown) (no date) (unknown) All (no value) (units unknown ) (unknown) Result panel 485 (unknown) (no date) (unknown) All (no value) (units unknown ) (unknown) Result panel 486 (unknown) (no date) (unknown) All (no value) (units unknown ) (unknown) Result panel 487 (unknown) (no date) (unknown) All (no value) (units unknown ) (unknown) Result panel 488 (unknown) (no date) (unknown) All (no value) (units unknown ) (unknown) Result panel 489 (unknown) (no date) (unknown) All (no value) (units unknown ) (unknown) Result panel 490 (unknown) (no date) (unknown) All (no value) (units unknown ) (unknown) Result panel 491 (unknown) (no date) (unknown) All (no value) (units unknown ) (unknown) Result panel 492 (unknown) (no date) (unknown) All (no value) (units unknown ) (unknown) Result panel 493 (unknown) (no date) (unknown) All (no value) (units unknown ) (unknown) Result panel 494 (unknown) (no date) (unknown) All (no value) (units unknown ) (unknown) Result panel 495 (unknown) (no date) (unknown) All (no value) (units unknown ) (unknown) Result panel 496 (unknown) (no date) (unknown) All (no value) (units unknown ) (unknown) Result panel 497 (unknown) (no date) (unknown) All (no value) (units unknown ) (unknown) Result panel 498 (unknown) (no date) (unknown) All (no value) (units unknown ) (unknown) Result panel 499 (unknown) (no date) (unknown) All (no value) (units unknown ) (unknown) Result panel 500 (unknown) (no date) (unknown) All (no value) (units unknown ) (unknown) Result panel 501 (unknown) (no date) (unknown) All (no value) (units unknown ) (unknown) Result panel 502 (unknown) (no date) (unknown) All (no value) (units unknown ) (unknown) Result panel 503 (unknown) (no date) (unknown) All (no value) (units unknown ) (unknown) Result panel 504 (unknown) (no date) (unknown) All (no value) (units unknown ) (unknown) Result panel 505 (unknown) (no date) (unknown) All (no value) (units unknown ) (unknown) Result panel 506 (unknown) (no date) (unknown) All (no value) (units unknown ) (unknown) Result panel 507 (unknown) (no date) (unknown) All (no value) (units unknown ) (unknown) Result panel 508 (unknown) (no date) (unknown) All (no value) (units unknown ) (unknown) Result panel 509 (unknown) (no date) (unknown) All (no value) (units unknown ) (unknown) Result panel 510 (unknown) (no date) (unknown) All (no value) (units unknown ) (unknown) Result panel 511 (unknown) (no date) (unknown) All (no value) (units unknown ) (unknown) Result panel 512 (unknown) (no date) (unknown) All (no value) (units unknown ) (unknown) Result panel 513 (unknown) (no date) (unknown) All (no value) (units unknown ) (unknown) Result panel 514 (unknown) (no date) (unknown) All (no value) (units unknown ) (unknown) Result panel 515 (unknown) (no date) (unknown) All (no value) (units unknown ) (unknown) Result panel 516 (unknown) (no date) (unknown) All (no value) (units unknown ) (unknown) Result panel 517 (unknown) (no date) (unknown) All (no value) (units unknown ) (unknown) Result panel 518 (unknown) (no date) (unknown) All (no value) (units unknown ) (unknown) Result panel 519 (unknown) (no date) (unknown) All (no value) (units unknown ) (unknown) Result panel 520 (unknown) (no date) (unknown) All (no value) (units unknown ) (unknown) Result panel 521 (unknown) (no date) (unknown) All (no value) (units unknown ) (unknown) Result panel 522 (unknown) (no date) (unknown) All (no value) (units unknown ) (unknown) Result panel 523 (unknown) (no date) (unknown) All (no value) (units unknown ) (unknown) Result panel 524 (unknown) (no date) (unknown) All (no value) (units unknown ) (unknown) Result panel 525 (unknown) (no date) (unknown) All (no value) (units unknown ) (unknown) Result panel 526 (unknown) (no date) (unknown) All (no value) (units unknown ) (unknown) Result panel 527 (unknown) (no date) (unknown) All (no value) (units unknown ) (unknown) Result panel 528 (unknown) (no date) (unknown) All (no value) (units unknown ) (unknown) Result panel 529 (unknown) (no date) (unknown) All (no value) (units unknown ) (unknown) Result panel 530 (unknown) (no date) (unknown) All (no value) (units unknown ) (unknown) Result panel 531 (unknown) (no date) (unknown) All (no value) (units unknown ) (unknown) Result panel 532 (unknown) (no date) (unknown) All (no value) (units unknown ) (unknown) Result panel 533 (unknown) (no date) (unknown) All (no value) (units unknown ) (unknown) Result panel 534 (unknown) (no date) (unknown) All (no value) (units unknown ) (unknown) Result panel 535 (unknown) (no date) (unknown) All (no value) (units unknown ) (unknown) Result panel 536 (unknown) (no date) (unknown) All (no value) (units unknown ) (unknown) Result panel 537 (unknown) (no date) (unknown) All (no value) (units unknown ) (unknown) Result panel 538 (unknown) (no date) (unknown) All (no value) (units unknown ) (unknown) Result panel 539 (unknown) (no date) (unknown) All (no value) (units unknown ) (unknown) Result panel 540 (unknown) (no date) (unknown) All (no value) (units unknown ) (unknown) Result panel 541 (unknown) (no date) (unknown) All (no value) (units unknown ) (unknown) Result panel 542 (unknown) (no date) (unknown) All (no value) (units unknown ) (unknown) Result panel 543 (unknown) (no date) (unknown) All (no value) (units unknown ) (unknown) Result panel 544 (unknown) (no date) (unknown) All (no value) (units unknown ) (unknown) Result panel 545 (unknown) (no date) (unknown) All (no value) (units unknown ) (unknown) Result panel 546 (unknown) (no date) (unknown) All (no value) (units unknown ) (unknown) Result panel 547 (unknown) (no date) (unknown) All (no value) (units unknown ) (unknown) Result panel 548 (unknown) (no date) (unknown) All (no value) (units unknown ) (unknown) Result panel 549 (unknown) (no date) (unknown) All (no value) (units unknown ) (unknown) Result panel 550 (unknown) (no date) (unknown) All (no value) (units unknown ) (unknown) Result panel 551 (unknown) (no date) (unknown) All (no value) (units unknown ) (unknown) Result panel 552 (unknown) (no date) (unknown) All (no value) (units unknown ) (unknown) Result panel 553 (unknown) (no date) (unknown) All (no value) (units unknown ) (unknown) Result panel 554 (unknown) (no date) (unknown) All (no value) (units unknown ) (unknown) Result panel 555 (unknown) (no date) (unknown) All (no value) (units unknown ) (unknown) Result panel 556 (unknown) (no date) (unknown) All (no value) (units unknown ) (unknown) Result panel 557 (unknown) (no date) (unknown) All (no value) (units unknown ) (unknown) Result panel 558 (unknown) (no date) (unknown) All (no value) (units unknown ) (unknown) Result panel 559 (unknown) (no date) (unknown) All (no value) (units unknown ) (unknown) Result panel 560 (unknown) (no date) (unknown) All (no value) (units unknown ) (unknown) Result panel 561 (unknown) (no date) (unknown) All (no value) (units unknown ) (unknown) Result panel 562 (unknown) (no date) (unknown) All (no value) (units unknown ) (unknown) Result panel 563 (unknown) (no date) (unknown) All (no value) (units unknown ) (unknown) Result panel 564 (unknown) (no date) (unknown) All (no value) (units unknown ) (unknown) Result panel 565 (unknown) (no date) (unknown) All (no value) (units unknown ) (unknown) Result panel 566 (unknown) (no date) (unknown) All (no value) (units unknown ) (unknown) Result panel 567 (unknown) (no date) (unknown) All (no value) (units unknown ) (unknown) Result panel 568 (unknown) (no date) (unknown) All (no value) (units unknown ) (unknown) Result panel 569 (unknown) (no date) (unknown) All (no value) (units unknown ) (unknown) Result panel 570 (unknown) (no date) (unknown) All (no value) (units unknown ) (unknown) Result panel 571 (unknown) (no date) (unknown) All (no value) (units unknown ) (unknown) Result panel 572 (unknown) (no date) (unknown) All (no value) (units unknown ) (unknown) Result panel 573 (unknown) (no date) (unknown) All (no value) (units unknown ) (unknown) Result panel 574 (unknown) (no date) (unknown) All (no value) (units unknown ) (unknown) Result panel 575 (unknown) (no date) (unknown) All (no value) (units unknown ) (unknown) Result panel 576 (unknown) (no date) (unknown) All (no value) (units unknown ) (unknown) Result panel 577 (unknown) (no date) (unknown) All (no value) (units unknown ) (unknown) Result panel 578 (unknown) (no date) (unknown) All (no value) (units unknown ) (unknown) Result panel 579 (unknown) (no date) (unknown) All (no value) (units unknown ) (unknown) Result panel 580 (unknown) (no date) (unknown) All (no value) (units unknown ) (unknown) Result panel 581 (unknown) (no date) (unknown) All (no value) (units unknown ) (unknown) Result panel 582 (unknown) (no date) (unknown) All (no value) (units unknown ) (unknown) Result panel 583 (unknown) (no date) (unknown) All (no value) (units unknown ) (unknown) Result panel 584 (unknown) (no date) (unknown) All (no value) (units unknown ) (unknown) Result panel 585 (unknown) (no date) (unknown) All (no value) (units unknown ) (unknown) Result panel 586 (unknown) (no date) (unknown) All (no value) (units unknown ) (unknown) Result panel 587 (unknown) (no date) (unknown) All (no value) (units unknown ) (unknown) Result panel 588 (unknown) (no date) (unknown) All (no value) (units unknown ) (unknown) Result panel 589 (unknown) (no date) (unknown) All (no value) (units unknown ) (unknown) Result panel 590 (unknown) (no date) (unknown) All (no value) (units unknown ) (unknown) Result panel 591 (unknown) (no date) (unknown) All (no value) (units unknown ) (unknown) Result panel 592 (unknown) (no date) (unknown) All (no value) (units unknown ) (unknown) Result panel 593 (unknown) (no date) (unknown) All (no value) (units unknown ) (unknown) Result panel 594 (unknown) (no date) (unknown) All (no value) (units unknown ) (unknown) Result panel 595 (unknown) (no date) (unknown) All (no value) (units unknown ) (unknown) Result panel 596 (unknown) (no date) (unknown) All (no value) (units unknown ) (unknown) Result panel 597 (unknown) (no date) (unknown) All (no value) (units unknown ) (unknown) Result panel 598 (unknown) (no date) (unknown) All (no value) (units unknown ) (unknown) Result panel 599 (unknown) (no date) (unknown) All (no value) (units unknown ) (unknown) Result panel 600 (unknown) (no date) (unknown) All (no value) (units unknown ) (unknown) Result panel 601 (unknown) (no date) (unknown) All (no value) (units unknown ) (unknown) Result panel 602 (unknown) (no date) (unknown) All (no value) (units unknown ) (unknown) Result panel 603 (unknown) (no date) (unknown) All (no value) (units unknown ) (unknown) Result panel 604 (unknown) (no date) (unknown) All (no value) (units unknown ) (unknown) Result panel 605 (unknown) (no date) (unknown) All (no value) (units unknown ) (unknown) Result panel 606 (unknown) (no date) (unknown) All (no value) (units unknown ) (unknown) Result panel 607 (unknown) (no date) (unknown) All (no value) (units unknown ) (unknown) Result panel 608 (unknown) (no date) (unknown) All (no value) (units unknown ) (unknown) Result panel 609 (unknown) (no date) (unknown) All (no value) (units unknown ) (unknown) Result panel 610 (unknown) (no date) (unknown) All (no value) (units unknown ) (unknown) Result panel 611 (unknown) (no date) (unknown) All (no value) (units unknown ) (unknown) Result panel 612 (unknown) (no date) (unknown) All (no value) (units unknown ) (unknown) Result panel 613 (unknown) (no date) (unknown) All (no value) (units unknown ) (unknown) Result panel 614 (unknown) (no date) (unknown) All (no value) (units unknown ) (unknown) Result panel 615 (unknown) (no date) (unknown) All (no value) (units unknown ) (unknown) Result panel 616 (unknown) (no date) (unknown) All (no value) (units unknown ) (unknown) Result panel 617 (unknown) (no date) (unknown) All (no value) (units unknown ) (unknown) Result panel 618 (unknown) (no date) (unknown) All (no value) (units unknown ) (unknown) Result panel 619 (unknown) (no date) (unknown) All (no value) (units unknown ) (unknown) Result panel 620 (unknown) (no date) (unknown) All (no value) (units unknown ) (unknown) Result panel 621 (unknown) (no date) (unknown) All (no value) (units unknown ) (unknown) Result panel 622 (unknown) (no date) (unknown) All (no value) (units unknown ) (unknown) Result panel 623 (unknown) (no date) (unknown) All (no value) (units unknown ) (unknown) Result panel 624 (unknown) (no date) (unknown) All (no value) (units unknown ) (unknown) Result panel 625 (unknown) (no date) (unknown) All (no value) (units unknown ) (unknown) Result panel 626 (unknown) (no date) (unknown) All (no value) (units unknown ) (unknown) Result panel 627 (unknown) (no date) (unknown) All (no value) (units unknown ) (unknown) Result panel 628 (unknown) (no date) (unknown) All (no value) (units unknown ) (unknown) Result panel 629 (unknown) (no date) (unknown) All (no value) (units unknown ) (unknown) Result panel 630 (unknown) (no date) (unknown) All (no value) (units unknown ) (unknown) Result panel 631 (unknown) (no date) (unknown) All (no value) (units unknown ) (unknown) Result panel 632 (unknown) (no date) (unknown) All (no value) (units unknown ) (unknown) Result panel 633 (unknown) (no date) (unknown) All (no value) (units unknown ) (unknown) Result panel 634 (unknown) (no date) (unknown) All (no value) (units unknown ) (unknown) Result panel 635 (unknown) (no date) (unknown) All (no value) (units unknown ) (unknown) Result panel 636 (unknown) (no date) (unknown) All (no value) (units unknown ) (unknown) Result panel 637 (unknown) (no date) (unknown) All (no value) (units unknown ) (unknown) Result panel 638 (unknown) (no date) (unknown) All (no value) (units unknown ) (unknown) Result panel 639 (unknown) (no date) (unknown) All (no value) (units unknown ) (unknown) Result panel 640 (unknown) (no date) (unknown) All (no value) (units unknown ) (unknown) Result panel 641 (unknown) (no date) (unknown) All (no value) (units unknown ) (unknown) Result panel 642 (unknown) (no date) (unknown) All (no value) (units unknown ) (unknown) Result panel 643 (unknown) (no date) (unknown) All (no value) (units unknown ) (unknown) Result panel 644 (unknown) (no date) (unknown) All (no value) (units unknown ) (unknown) Result panel 645 (unknown) (no date) (unknown) All (no value) (units unknown ) (unknown) Result panel 646 (unknown) (no date) (unknown) All (no value) (units unknown ) (unknown) Result panel 647 (unknown) (no date) (unknown) All (no value) (units unknown ) (unknown) Result panel 648 (unknown) (no date) (unknown) All (no value) (units unknown ) (unknown) Result panel 649 (unknown) (no date) (unknown) All (no value) (units unknown ) (unknown) Result panel 650 (unknown) (no date) (unknown) All (no value) (units unknown ) (unknown) Result panel 651 (unknown) (no date) (unknown) All (no value) (units unknown ) (unknown) Result panel 652 (unknown) (no date) (unknown) All (no value) (units unknown ) (unknown) Result panel 653 (unknown) (no date) (unknown) All (no value) (units unknown ) (unknown) Result panel 654 (unknown) (no date) (unknown) All (no value) (units unknown ) (unknown) Result panel 655 (unknown) (no date) (unknown) All (no value) (units unknown ) (unknown) Result panel 656 (unknown) (no date) (unknown) All (no value) (units unknown ) (unknown) Result panel 657 (unknown) (no date) (unknown) All (no value) (units unknown ) (unknown) Result panel 658 (unknown) (no date) (unknown) All (no value) (units unknown ) (unknown) Result panel 659 (unknown) (no date) (unknown) All (no value) (units unknown ) (unknown) Result panel 660 (unknown) (no date) (unknown) All (no value) (units unknown ) (unknown) Result panel 661 (unknown) (no date) (unknown) All (no value) (units unknown ) (unknown) Result panel 662 (unknown) (no date) (unknown) All (no value) (units unknown ) (unknown) Result panel 663 (unknown) (no date) (unknown) All (no value) (units unknown ) (unknown) Result panel 664 (unknown) (no date) (unknown) All (no value) (units unknown ) (unknown) Result panel 665 (unknown) (no date) (unknown) All (no value) (units unknown ) (unknown) Result panel 666 (unknown) (no date) (unknown) All (no value) (units unknown ) (unknown) Result panel 667 (unknown) (no date) (unknown) All (no value) (units unknown ) (unknown) Result panel 668 (unknown) (no date) (unknown) All (no value) (units unknown ) (unknown) Result panel 669 (unknown) (no date) (unknown) All (no value) (units unknown ) (unknown) Result panel 670 (unknown) (no date) (unknown) All (no value) (units unknown ) (unknown) Result panel 671 (unknown) (no date) (unknown) All (no value) (units unknown ) (unknown) Result panel 672 (unknown) (no date) (unknown) All (no value) (units unknown ) (unknown) Result panel 673 (unknown) (no date) (unknown) All (no value) (units unknown ) (unknown) Result panel 674 (unknown) (no date) (unknown) All (no value) (units unknown ) (unknown) Result panel 675 (unknown) (no date) (unknown) All (no value) (units unknown ) (unknown) Result panel 676 (unknown) (no date) (unknown) All (no value) (units unknown ) (unknown) Result panel 677 (unknown) (no date) (unknown) All (no value) (units unknown ) (unknown) Result panel 678 (unknown) (no date) (unknown) All (no value) (units unknown ) (unknown) Result panel 679 (unknown) (no date) (unknown) All (no value) (units unknown ) (unknown) Result panel 680 (unknown) (no date) (unknown) All (no value) (units unknown ) (unknown) Result panel 681 (unknown) (no date) (unknown) All (no value) (units unknown ) (unknown) Result panel 682 (unknown) (no date) (unknown) All (no value) (units unknown ) (unknown) Result panel 683 (unknown) (no date) (unknown) All (no value) (units unknown ) (unknown) Result panel 684 (unknown) (no date) (unknown) All (no value) (units unknown ) (unknown) Result panel 685 (unknown) (no date) (unknown) All (no value) (units unknown ) (unknown) Result panel 686 (unknown) (no date) (unknown) All (no value) (units unknown ) (unknown) Result panel 687 (unknown) (no date) (unknown) All (no value) (units unknown ) (unknown) Result panel 688 (unknown) (no date) (unknown) All (no value) (units unknown ) (unknown) Result panel 689 (unknown) (no date) (unknown) All (no value) (units unknown ) (unknown) Result panel 690 (unknown) (no date) (unknown) All (no value) (units unknown ) (unknown) Result panel 691 (unknown) (no date) (unknown) All (no value) (units unknown ) (unknown) Result panel 692 (unknown) (no date) (unknown) All (no value) (units unknown ) (unknown) Result panel 693 (unknown) (no date) (unknown) All (no value) (units unknown ) (unknown) Result panel 694 (unknown) (no date) (unknown) All (no value) (units unknown ) (unknown) Result panel 695 (unknown) (no date) (unknown) All (no value) (units unknown ) (unknown) Result panel 696 (unknown) (no date) (unknown) All (no value) (units unknown ) (unknown) Result panel 697 (unknown) (no date) (unknown) All (no value) (units unknown ) (unknown) Result panel 698 (unknown) (no date) (unknown) All (no value) (units unknown ) (unknown) Result panel 699 (unknown) (no date) (unknown) All (no value) (units unknown ) (unknown) Result panel 700 (unknown) (no date) (unknown) All (no value) (units unknown ) (unknown) Result panel 701 (unknown) (no date) (unknown) All (no value) (units unknown ) (unknown) Result panel 702 (unknown) (no date) (unknown) All (no value) (units unknown ) (unknown) Result panel 703 (unknown) (no date) (unknown) All (no value) (units unknown ) (unknown) Result panel 704 (unknown) (no date) (unknown) All (no value) (units unknown ) (unknown) Result panel 705 (unknown) (no date) (unknown) All (no value) (units unknown ) (unknown) Result panel 706 (unknown) (no date) (unknown) All (no value) (units unknown ) (unknown) Result panel 707 (unknown) (no date) (unknown) All (no value) (units unknown ) (unknown) Result panel 708 (unknown) (no date) (unknown) All (no value) (units unknown ) (unknown) Result panel 709 (unknown) (no date) (unknown) All (no value) (units unknown ) (unknown) Result panel 710 (unknown) (no date) (unknown) All (no value) (units unknown ) (unknown) Result panel 711 (unknown) (no date) (unknown) All (no value) (units unknown ) (unknown) Result panel 712 (unknown) (no date) (unknown) All (no value) (units unknown ) (unknown) Result panel 713 (unknown) (no date) (unknown) All (no value) (units unknown ) (unknown) Result panel 714 (unknown) (no date) (unknown) All (no value) (units unknown ) (unknown) Result panel 715 (unknown) (no date) (unknown) All (no value) (units unknown ) (unknown) Result panel 716 (unknown) (no date) (unknown) All (no value) (units unknown ) (unknown) Result panel 717 (unknown) (no date) (unknown) All (no value) (units unknown ) (unknown) Result panel 718 (unknown) (no date) (unknown) All (no value) (units unknown ) (unknown) Result panel 719 (unknown) (no date) (unknown) All (no value) (units unknown ) (unknown) Result panel 720 (unknown) (no date) (unknown) All (no value) (units unknown ) (unknown) Result panel 721 (unknown) (no date) (unknown) All (no value) (units unknown ) (unknown) Result panel 722 (unknown) (no date) (unknown) All (no value) (units unknown ) (unknown) Result panel 723 (unknown) (no date) (unknown) All (no value) (units unknown ) (unknown) Result panel 724 (unknown) (no date) (unknown) All (no value) (units unknown ) (unknown) Result panel 725 (unknown) (no date) (unknown) All (no value) (units unknown ) (unknown) Result panel 726 (unknown) (no date) (unknown) All (no value) (units unknown ) (unknown) Result panel 727 (unknown) (no date) (unknown) All (no value) (units unknown ) (unknown) Result panel 728 (unknown) (no date) (unknown) All (no value) (units unknown ) (unknown) Result panel 729 (unknown) (no date) (unknown) All (no value) (units unknown ) (unknown) Result panel 730 (unknown) (no date) (unknown) All (no value) (units unknown ) (unknown) Result panel 731 (unknown) (no date) (unknown) All (no value) (units unknown ) (unknown) Result panel 732 (unknown) (no date) (unknown) All (no value) (units unknown ) (unknown) Result panel 733 (unknown) (no date) (unknown) All (no value) (units unknown ) (unknown) Result panel 734 (unknown) (no date) (unknown) All (no value) (units unknown ) (unknown) Result panel 735 (unknown) (no date) (unknown) All (no value) (units unknown ) (unknown) Result panel 736 (unknown) (no date) (unknown) All (no value) (units unknown ) (unknown) Result panel 737 (unknown) (no date) (unknown) All (no value) (units unknown ) (unknown) Result panel 738 (unknown) (no date) (unknown) All (no value) (units unknown ) (unknown) Result panel 739 (unknown) (no date) (unknown) All (no value) (units unknown ) (unknown) Result panel 740 (unknown) (no date) (unknown) All (no value) (units unknown ) (unknown) Result panel 741 (unknown) (no date) (unknown) All (no value) (units unknown ) (unknown) Result panel 742 (unknown) (no date) (unknown) All (no value) (units unknown ) (unknown) Result panel 743 (unknown) (no date) (unknown) All (no value) (units unknown ) (unknown) Result panel 744 (unknown) (no date) (unknown) All (no value) (units unknown ) (unknown) Result panel 745 (unknown) (no date) (unknown) All (no value) (units unknown ) (unknown) Result panel 746 (unknown) (no date) (unknown) All (no value) (units unknown ) (unknown) Result panel 747 (unknown) (no date) (unknown) All (no value) (units unknown ) (unknown) Result panel 748 (unknown) (no date) (unknown) All (no value) (units unknown ) (unknown) Result panel 749 (unknown) (no date) (unknown) All (no value) (units unknown ) (unknown) Result panel 750 (unknown) (no date) (unknown) All (no value) (units unknown ) (unknown) Result panel 751 (unknown) (no date) (unknown) All (no value) (units unknown ) (unknown) Result panel 752 (unknown) (no date) (unknown) All (no value) (units unknown ) (unknown) Result panel 753 (unknown) (no date) (unknown) All (no value) (units unknown ) (unknown) Result panel 754 (unknown) (no date) (unknown) All (no value) (units unknown ) (unknown) Result panel 755 (unknown) (no date) (unknown) All (no value) (units unknown ) (unknown) Result panel 756 (unknown) (no date) (unknown) All (no value) (units unknown ) (unknown) Result panel 757 (unknown) (no date) (unknown) All (no value) (units unknown ) (unknown) Result panel 758 (unknown) (no date) (unknown) All (no value) (units unknown ) (unknown) Result panel 759 (unknown) (no date) (unknown) All (no value) (units unknown ) (unknown) Result panel 760 (unknown) (no date) (unknown) All (no value) (units unknown ) (unknown) Result panel 761 (unknown) (no date) (unknown) All (no value) (units unknown ) (unknown) Result panel 762 (unknown) (no date) (unknown) All (no value) (units unknown ) (unknown) Result panel 763 (unknown) (no date) (unknown) All (no value) (units unknown ) (unknown) Result panel 764 (unknown) (no date) (unknown) All (no value) (units unknown ) (unknown) Result panel 765 (unknown) (no date) (unknown) All (no value) (units unknown ) (unknown) Result panel 766 (unknown) (no date) (unknown) All (no value) (units unknown ) (unknown) Result panel 767 (unknown) (no date) (unknown) All (no value) (units unknown ) (unknown) Result panel 768 (unknown) (no date) (unknown) All (no value) (units unknown ) (unknown) Result panel 769 (unknown) (no date) (unknown) All (no value) (units unknown ) (unknown) Result panel 770 (unknown) (no date) (unknown) All (no value) (units unknown ) (unknown) Result panel 771 (unknown) (no date) (unknown) All (no value) (units unknown ) (unknown) Result panel 772 (unknown) (no date) (unknown) All (no value) (units unknown ) (unknown) Result panel 773 (unknown) (no date) (unknown) All (no value) (units unknown ) (unknown) Result panel 774 (unknown) (no date) (unknown) All (no value) (units unknown ) (unknown) Result panel 775 (unknown) (no date) (unknown) All (no value) (units unknown ) (unknown) Result panel 776 (unknown) (no date) (unknown) All (no value) (units unknown ) (unknown) Result panel 777 (unknown) (no date) (unknown) All (no value) (units unknown ) (unknown) Result panel 778 (unknown) (no date) (unknown) All (no value) (units unknown ) (unknown) Result panel 779 (unknown) (no date) (unknown) All (no value) (units unknown ) (unknown) Result panel 780 (unknown) (no date) (unknown) All (no value) (units unknown ) (unknown) Result panel 781 (unknown) (no date) (unknown) All (no value) (units unknown ) (unknown) Result panel 782 (unknown) (no date) (unknown) All (no value) (units unknown ) (unknown) Result panel 783 (unknown) (no date) (unknown) All (no value) (units unknown ) (unknown) Result panel 784 (unknown) (no date) (unknown) All (no value) (units unknown ) (unknown) Result panel 785 (unknown) (no date) (unknown) All (no value) (units unknown ) (unknown) Result panel 786 (unknown) (no date) (unknown) All (no value) (units unknown ) (unknown) Result panel 787 (unknown) (no date) (unknown) All (no value) (units unknown ) (unknown) Result panel 788 (unknown) (no date) (unknown) All (no value) (units unknown ) (unknown) Result panel 789 (unknown) (no date) (unknown) All (no value) (units unknown ) (unknown) Result panel 790 (unknown) (no date) (unknown) All (no value) (units unknown ) (unknown) Result panel 791 (unknown) (no date) (unknown) All (no value) (units unknown ) (unknown) Result panel 792 (unknown) (no date) (unknown) All (no value) (units unknown ) (unknown) Result panel 793 (unknown) (no date) (unknown) All (no value) (units unknown ) (unknown) Result panel 794 (unknown) (no date) (unknown) All (no value) (units unknown ) (unknown) Result panel 795 (unknown) (no date) (unknown) All (no value) (units unknown ) (unknown) Result panel 796 (unknown) (no date) (unknown) All (no value) (units unknown ) (unknown) Result panel 797 (unknown) (no date) (unknown) All (no value) (units unknown ) (unknown) Result panel 798 (unknown) (no date) (unknown) All (no value) (units unknown ) (unknown) Result panel 799 (unknown) (no date) (unknown) All (no value) (units unknown ) (unknown) Result panel 800 (unknown) (no date) (unknown) All (no value) (units unknown ) (unknown) Result panel 801 (unknown) (no date) (unknown) All (no value) (units unknown ) (unknown) Result panel 802 (unknown) (no date) (unknown) All (no value) (units unknown ) (unknown) Result panel 803 (unknown) (no date) (unknown) All (no value) (units unknown ) (unknown) Result panel 804 (unknown) (no date) (unknown) All (no value) (units unknown ) (unknown) Result panel 805 (unknown) (no date) (unknown) All (no value) (units unknown ) (unknown) Result panel 806 (unknown) (no date) (unknown) All (no value) (units unknown ) (unknown) Result panel 807 (unknown) (no date) (unknown) All (no value) (units unknown ) (unknown) Result panel 808 (unknown) (no date) (unknown) All (no value) (units unknown ) (unknown) Result panel 809 (unknown) (no date) (unknown) All (no value) (units unknown ) (unknown) Result panel 810 (unknown) (no date) (unknown) All (no value) (units unknown ) (unknown) Result panel 811 (unknown) (no date) (unknown) All (no value) (units unknown ) (unknown) Result panel 812 (unknown) (no date) (unknown) All (no value) (units unknown ) (unknown) Result panel 813 (unknown) (no date) (unknown) All (no value) (units unknown ) (unknown) Result panel 814 (unknown) (no date) (unknown) All (no value) (units unknown ) (unknown) Result panel 815 (unknown) (no date) (unknown) All (no value) (units unknown ) (unknown) Result panel 816 (unknown) (no date) (unknown) All (no value) (units unknown ) (unknown) Result panel 817 (unknown) (no date) (unknown) All (no value) (units unknown ) (unknown) Result panel 818 (unknown) (no date) (unknown) All (no value) (units unknown ) (unknown) Result panel 819 (unknown) (no date) (unknown) All (no value) (units unknown ) (unknown) Result panel 820 (unknown) (no date) (unknown) All (no value) (units unknown ) (unknown) Result panel 821 (unknown) (no date) (unknown) All (no value) (units unknown ) (unknown) Result panel 822 (unknown) (no date) (unknown) All (no value) (units unknown ) (unknown) Result panel 823 (unknown) (no date) (unknown) All (no value) (units unknown ) (unknown) Result panel 824 (unknown) (no date) (unknown) All (no value) (units unknown ) (unknown) Result panel 825 (unknown) (no date) (unknown) All (no value) (units unknown ) (unknown) Result panel 826 (unknown) (no date) (unknown) All (no value) (units unknown ) (unknown) Result panel 827 (unknown) (no date) (unknown) All (no value) (units unknown ) (unknown) Result panel 828 (unknown) (no date) (unknown) All (no value) (units unknown ) (unknown) Result panel 829 (unknown) (no date) (unknown) All (no value) (units unknown ) (unknown) Result panel 830 (unknown) (no date) (unknown) All (no value) (units unknown ) (unknown) Result panel 831 (unknown) (no date) (unknown) All (no value) (units unknown ) (unknown) Result panel 832 (unknown) (no date) (unknown) All (no value) (units unknown ) (unknown) Result panel 833 (unknown) (no date) (unknown) All (no value) (units unknown ) (unknown) Result panel 834 (unknown) (no date) (unknown) All (no value) (units unknown ) (unknown) Result panel 835 (unknown) (no date) (unknown) All (no value) (units unknown ) (unknown) Result panel 836 (unknown) (no date) (unknown) All (no value) (units unknown ) (unknown) Result panel 837 (unknown) (no date) (unknown) All (no value) (units unknown ) (unknown) Result panel 838 (unknown) (no date) (unknown) All (no value) (units unknown ) (unknown) Result panel 839 (unknown) (no date) (unknown) All (no value) (units unknown ) (unknown) Result panel 840 (unknown) (no date) (unknown) All (no value) (units unknown ) (unknown) Result panel 841 (unknown) (no date) (unknown) All (no value) (units unknown ) (unknown) Result panel 842 (unknown) (no date) (unknown) All (no value) (units unknown ) (unknown) Result panel 843 (unknown) (no date) (unknown) All (no value) (units unknown ) (unknown) Result panel 844 (unknown) (no date) (unknown) All (no value) (units unknown ) (unknown) Result panel 845 (unknown) (no date) (unknown) All (no value) (units unknown ) (unknown) Result panel 846 (unknown) (no date) (unknown) All (no value) (units unknown ) (unknown) Result panel 847 (unknown) (no date) (unknown) All (no value) (units unknown ) (unknown) Result panel 848 (unknown) (no date) (unknown) All (no value) (units unknown ) (unknown) Result panel 849 (unknown) (no date) (unknown) All (no value) (units unknown ) (unknown) Result panel 850 (unknown) (no date) (unknown) All (no value) (units unknown ) (unknown) Result panel 851 (unknown) (no date) (unknown) All (no value) (units unknown ) (unknown) Result panel 852 (unknown) (no date) (unknown) All (no value) (units unknown ) (unknown) Result panel 853 (unknown) (no date) (unknown) All (no value) (units unknown ) (unknown) Result panel 854 (unknown) (no date) (unknown) All (no value) (units unknown ) (unknown) Result panel 855 (unknown) (no date) (unknown) All (no value) (units unknown ) (unknown) Result panel 856 (unknown) (no date) (unknown) All (no value) (units unknown ) (unknown) Result panel 857 (unknown) (no date) (unknown) All (no value) (units unknown ) (unknown) Result panel 858 (unknown) (no date) (unknown) All (no value) (units unknown ) (unknown) Result panel 859 (unknown) (no date) (unknown) All (no value) (units unknown ) (unknown) Result panel 860 (unknown) (no date) (unknown) All (no value) (units unknown ) (unknown) Result panel 861 (unknown) (no date) (unknown) All (no value) (units unknown ) (unknown) Result panel 862 (unknown) (no date) (unknown) All (no value) (units unknown ) (unknown) Result panel 863 (unknown) (no date) (unknown) All (no value) (units unknown ) (unknown) Result panel 864 (unknown) (no date) (unknown) All (no value) (units unknown ) (unknown) Result panel 865 (unknown) (no date) (unknown) All (no value) (units unknown ) (unknown) Result panel 866 (unknown) (no date) (unknown) All (no value) (units unknown ) (unknown) Result panel 867 (unknown) (no date) (unknown) All (no value) (units unknown ) (unknown) Result panel 868 (unknown) (no date) (unknown) All (no value) (units unknown ) (unknown) Result panel 869 (unknown) (no date) (unknown) All (no value) (units unknown ) (unknown) Result panel 870 (unknown) (no date) (unknown) All (no value) (units unknown ) (unknown) Result panel 871 (unknown) (no date) (unknown) All (no value) (units unknown ) (unknown) Result panel 872 (unknown) (no date) (unknown) All (no value) (units unknown ) (unknown) Result panel 873 (unknown) (no date) (unknown) All (no value) (units unknown ) (unknown) Result panel 874 (unknown) (no date) (unknown) All (no value) (units unknown ) (unknown) Result panel 875 (unknown) (no date) (unknown) All (no value) (units unknown ) (unknown) Result panel 876 (unknown) (no date) (unknown) All (no value) (units unknown ) (unknown) Result panel 877 (unknown) (no date) (unknown) All (no value) (units unknown ) (unknown) Result panel 878 (unknown) (no date) (unknown) All (no value) (units unknown ) (unknown) Result panel 879 (unknown) (no date) (unknown) All (no value) (units unknown ) (unknown) Result panel 880 (unknown) (no date) (unknown) All (no value) (units unknown ) (unknown) Result panel 881 (unknown) (no date) (unknown) All (no value) (units unknown ) (unknown) Result panel 882 (unknown) (no date) (unknown) All (no value) (units unknown ) (unknown) Result panel 883 (unknown) (no date) (unknown) All (no value) (units unknown ) (unknown) Result panel 884 (unknown) (no date) (unknown) All (no value) (units unknown ) (unknown) Result panel 885 (unknown) (no date) (unknown) All (no value) (units unknown ) (unknown) Result panel 886 (unknown) (no date) (unknown) All (no value) (units unknown ) (unknown) Result panel 887 (unknown) (no date) (unknown) All (no value) (units unknown ) (unknown) Result panel 888 (unknown) (no date) (unknown) All (no value) (units unknown ) (unknown) Result panel 889 (unknown) (no date) (unknown) All (no value) (units unknown ) (unknown) Result panel 890 (unknown) (no date) (unknown) All (no value) (units unknown ) (unknown) Result panel 891 (unknown) (no date) (unknown) All (no value) (units unknown ) (unknown) Result panel 892 (unknown) (no date) (unknown) All (no value) (units unknown ) (unknown) Result panel 893 (unknown) (no date) (unknown) All (no value) (units unknown ) (unknown) Result panel 894 (unknown) (no date) (unknown) All (no value) (units unknown ) (unknown) Result panel 895 (unknown) (no date) (unknown) All (no value) (units unknown ) (unknown) Result panel 896 (unknown) (no date) (unknown) All (no value) (units unknown ) (unknown) Result panel 897 (unknown) (no date) (unknown) All (no value) (units unknown ) (unknown) Result panel 898 (unknown) (no date) (unknown) All (no value) (units unknown ) (unknown) Result panel 899 (unknown) (no date) (unknown) All (no value) (units unknown ) (unknown) Result panel 900 (unknown) (no date) (unknown) All (no value) (units unknown ) (unknown) Result panel 901 (unknown) (no date) (unknown) All (no value) (units unknown ) (unknown) Result panel 902 (unknown) (no date) (unknown) All (no value) (units unknown ) (unknown) Result panel 903 (unknown) (no date) (unknown) All (no value) (units unknown ) (unknown) Result panel 904 (unknown) (no date) (unknown) All (no value) (units unknown ) (unknown) Result panel 905 (unknown) (no date) (unknown) All (no value) (units unknown ) (unknown) Result panel 906 (unknown) (no date) (unknown) All (no value) (units unknown ) (unknown) Result panel 907 (unknown) (no date) (unknown) All (no value) (units unknown ) (unknown) Result panel 908 (unknown) (no date) (unknown) All (no value) (units unknown ) (unknown) Result panel 909 (unknown) (no date) (unknown) All (no value) (units unknown ) (unknown) Result panel 910 (unknown) (no date) (unknown) All (no value) (units unknown ) (unknown) Result panel 911 (unknown) (no date) (unknown) All (no value) (units unknown ) (unknown) Result panel 912 (unknown) (no date) (unknown) All (no value) (units unknown ) (unknown) Result panel 913 (unknown) (no date) (unknown) All (no value) (units unknown ) (unknown) Result panel 914 (unknown) (no date) (unknown) All (no value) (units unknown ) (unknown) Result panel 915 (unknown) (no date) (unknown) All (no value) (units unknown ) (unknown) Result panel 916 (unknown) (no date) (unknown) All (no value) (units unknown ) (unknown) Result panel 917 (unknown) (no date) (unknown) All (no value) (units unknown ) (unknown) Result panel 918 (unknown) (no date) (unknown) All (no value) (units unknown ) (unknown) Result panel 919 (unknown) (no date) (unknown) All (no value) (units unknown ) (unknown) Result panel 920 (unknown) (no date) (unknown) All (no value) (units unknown ) (unknown) Result panel 921 (unknown) (no date) (unknown) All (no value) (units unknown ) (unknown) Result panel 922 (unknown) (no date) (unknown) All (no value) (units unknown ) (unknown) Result panel 923 (unknown) (no date) (unknown) All (no value) (units unknown ) (unknown) Result panel 924 (unknown) (no date) (unknown) All (no value) (units unknown ) (unknown) Result panel 925 (unknown) (no date) (unknown) All (no value) (units unknown ) (unknown) Result panel 926 (unknown) (no date) (unknown) All (no value) (units unknown ) (unknown) Result panel 927 (unknown) (no date) (unknown) All (no value) (units unknown ) (unknown) Result panel 928 (unknown) (no date) (unknown) All (no value) (units unknown ) (unknown) Result panel 929 (unknown) (no date) (unknown) All (no value) (units unknown ) (unknown) Result panel 930 (unknown) (no date) (unknown) All (no value) (units unknown ) (unknown) Result panel 931 (unknown) (no date) (unknown) All (no value) (units unknown ) (unknown) Result panel 932 (unknown) (no date) (unknown) All (no value) (units unknown ) (unknown) Result panel 933 (unknown) (no date) (unknown) All (no value) (units unknown ) (unknown) Result panel 934 (unknown) (no date) (unknown) All (no value) (units unknown ) (unknown) Result panel 935 (unknown) (no date) (unknown) All (no value) (units unknown ) (unknown) Result panel 936 (unknown) (no date) (unknown) All (no value) (units unknown ) (unknown) Result panel 937 (unknown) (no date) (unknown) All (no value) (units unknown ) (unknown) Result panel 938 (unknown) (no date) (unknown) All (no value) (units unknown ) (unknown) Result panel 939 (unknown) (no date) (unknown) All (no value) (units unknown ) (unknown) Result panel 940 (unknown) (no date) (unknown) All (no value) (units unknown ) (unknown) Result panel 941 (unknown) (no date) (unknown) All (no value) (units unknown ) (unknown) Result panel 942 (unknown) (no date) (unknown) All (no value) (units unknown ) (unknown) Result panel 943 (unknown) (no date) (unknown) All (no value) (units unknown ) (unknown) Result panel 944 (unknown) (no date) (unknown) All (no value) (units unknown ) (unknown) Result panel 945 (unknown) (no date) (unknown) All (no value) (units unknown ) (unknown) Result panel 946 (unknown) (no date) (unknown) All (no value) (units unknown ) (unknown) Result panel 947 (unknown) (no date) (unknown) All (no value) (units unknown ) (unknown) Result panel 948 (unknown) (no date) (unknown) All (no value) (units unknown ) (unknown) Result panel 949 (unknown) (no date) (unknown) All (no value) (units unknown ) (unknown) Result panel 950 (unknown) (no date) (unknown) All (no value) (units unknown ) (unknown) Result panel 951 (unknown) (no date) (unknown) All (no value) (units unknown ) (unknown) Result panel 952 (unknown) (no date) (unknown) All (no value) (units unknown ) (unknown) Result panel 953 (unknown) (no date) (unknown) All (no value) (units unknown ) (unknown) Result panel 954 (unknown) (no date) (unknown) All (no value) (units unknown ) (unknown) Result panel 955 (unknown) (no date) (unknown) All (no value) (units unknown ) (unknown) Result panel 956 (unknown) (no date) (unknown) All (no value) (units unknown ) (unknown) Result panel 957 (unknown) (no date) (unknown) All (no value) (units unknown ) (unknown) Result panel 958 (unknown) (no date) (unknown) All (no value) (units unknown ) (unknown) Result panel 959 (unknown) (no date) (unknown) All (no value) (units unknown ) (unknown) Result panel 960 (unknown) (no date) (unknown) All (no value) (units unknown ) (unknown) Result panel 961 (unknown) (no date) (unknown) All (no value) (units unknown ) (unknown) Result panel 962 (unknown) (no date) (unknown) All (no value) (units unknown ) (unknown) Result panel 963 (unknown) (no date) (unknown) All (no value) (units unknown ) (unknown) Result panel 964 (unknown) (no date) (unknown) All (no value) (units unknown ) (unknown) Result panel 965 (unknown) (no date) (unknown) All (no value) (units unknown ) (unknown) Result panel 966 (unknown) (no date) (unknown) All (no value) (units unknown ) (unknown) Result panel 967 (unknown) (no date) (unknown) All (no value) (units unknown ) (unknown) Result panel 968 (unknown) (no date) (unknown) All (no value) (units unknown ) (unknown) Result panel 969 (unknown) (no date) (unknown) All (no value) (units unknown ) (unknown) Result panel 970 (unknown) (no date) (unknown) All (no value) (units unknown ) (unknown) Result panel 971 (unknown) (no date) (unknown) All (no value) (units unknown ) (unknown) Result panel 972 (unknown) (no date) (unknown) All (no value) (units unknown ) (unknown) Result panel 973 (unknown) (no date) (unknown) All (no value) (units unknown ) (unknown) Result panel 974 (unknown) (no date) (unknown) All (no value) (units unknown ) (unknown) Result panel 975 (unknown) (no date) (unknown) All (no value) (units unknown ) (unknown) Result panel 976 (unknown) (no date) (unknown) All (no value) (units unknown ) (unknown) Result panel 977 (unknown) (no date) (unknown) All (no value) (units unknown ) (unknown) Result panel 978 (unknown) (no date) (unknown) All (no value) (units unknown ) (unknown) Result panel 979 (unknown) (no date) (unknown) All (no value) (units unknown ) (unknown) Result panel 980 (unknown) (no date) (unknown) All (no value) (units unknown ) (unknown) Result panel 981 (unknown) (no date) (unknown) All (no value) (units unknown ) (unknown) Result panel 982 (unknown) (no date) (unknown) All (no value) (units unknown ) (unknown) Result panel 983 (unknown) (no date) (unknown) All (no value) (units unknown ) (unknown) Result panel 984 (unknown) (no date) (unknown) All (no value) (units unknown ) (unknown) Result panel 985 (unknown) (no date) (unknown) All (no value) (units unknown ) (unknown) Result panel 986 (unknown) (no date) (unknown) All (no value) (units unknown ) (unknown) Result panel 987 (unknown) (no date) (unknown) All (no value) (units unknown ) (unknown) Result panel 988 (unknown) (no date) (unknown) All (no value) (units unknown ) (unknown) Result panel 989 (unknown) (no date) (unknown) All (no value) (units unknown ) (unknown) Result panel 990 (unknown) (no date) (unknown) All (no value) (units unknown ) (unknown) Result panel 991 (unknown) (no date) (unknown) All (no value) (units unknown ) (unknown) Result panel 992 (unknown) (no date) (unknown) All (no value) (units unknown ) (unknown) Result panel 993 (unknown) (no date) (unknown) All (no value) (units unknown ) (unknown) Result panel 994 (unknown) (no date) (unknown) All (no value) (units unknown ) (unknown) Result panel 995 (unknown) (no date) (unknown) All (no value) (units unknown ) (unknown) Result panel 996 (unknown) (no date) (unknown) All (no value) (units unknown ) (unknown) Result panel 997 (unknown) (no date) (unknown) All (no value) (units unknown ) (unknown) Result panel 998 (unknown) (no date) (unknown) All (no value) (units unknown ) (unknown) Result panel 999 (unknown) (no date) (unknown) All (no value) (units unknown ) (unknown) Result panel 1000 (unknown) (no date) (unknown) All (no value) (units unknown ) (unknown) Result panel 1001 (unknown) (no date) (unknown) All (no value) (units unknown ) (unknown) Result panel 1002 (unknown) (no date) (unknown) All (no value) (units unknown ) (unknown) Result panel 1003 (unknown) (no date) (unknown) All (no value) (units unknown ) (unknown) Result panel 1004 (unknown) (no date) (unknown) All (no value) (units unknown ) (unknown) Result panel 1005 (unknown) (no date) (unknown) All (no value) (units unknown ) (unknown) Result panel 1006 (unknown) (no date) (unknown) All (no value) (units unknown ) (unknown) Result panel 1007 (unknown) (no date) (unknown) All (no value) (units unknown ) (unknown) Result panel 1008 (unknown) (no date) (unknown) All (no value) (units unknown ) (unknown) Result panel 1009 (unknown) (no date) (unknown) All (no value) (units unknown ) (unknown) Result panel 1010 (unknown) (no date) (unknown) All (no value) (units unknown ) (unknown) Result panel 1011 (unknown) (no date) (unknown) All (no value) (units unknown ) (unknown) Result panel 1012 (unknown) (no date) (unknown) All (no value) (units unknown ) (unknown) Result panel 1013 (unknown) (no date) (unknown) All (no value) (units unknown ) (unknown) Result panel 1014 (unknown) (no date) (unknown) All (no value) (units unknown ) (unknown) Result panel 1015 (unknown) (no date) (unknown) All (no value) (units unknown ) (unknown) Result panel 1016 (unknown) (no date) (unknown) All (no value) (units unknown ) (unknown) Result panel 1017 (unknown) (no date) (unknown) All (no value) (units unknown ) (unknown) Result panel 1018 (unknown) (no date) (unknown) All (no value) (units unknown ) (unknown) Result panel 1019 (unknown) (no date) (unknown) All (no value) (units unknown ) (unknown) Result panel 1020 (unknown) (no date) (unknown) All (no value) (units unknown ) (unknown) Result panel 1021 (unknown) (no date) (unknown) All (no value) (units unknown ) (unknown) Result panel 1022 (unknown) (no date) (unknown) All (no value) (units unknown ) (unknown) Result panel 1023 (unknown) (no date) (unknown) All (no value) (units unknown ) (unknown) Result panel 1024 (unknown) (no date) (unknown) All (no value) (units unknown ) (unknown) Result panel 1025 (unknown) (no date) (unknown) All (no value) (units unknown ) (unknown) Result panel 1026 (unknown) (no date) (unknown) All (no value) (units unknown ) (unknown) Result panel 1027 (unknown) (no date) (unknown) All (no value) (units unknown ) (unknown) Result panel 1028 (unknown) (no date) (unknown) All (no value) (units unknown ) (unknown) Result panel 1029 (unknown) (no date) (unknown) All (no value) (units unknown ) (unknown) Result panel 1030 (unknown) (no date) (unknown) All (no value) (units unknown ) (unknown) Result panel 1031 (unknown) (no date) (unknown) All (no value) (units unknown ) (unknown) Result panel 1032 (unknown) (no date) (unknown) All (no value) (units unknown ) (unknown) Result panel 1033 (unknown) (no date) (unknown) All (no value) (units unknown ) (unknown) Result panel 1034 (unknown) (no date) (unknown) All (no value) (units unknown ) (unknown) Result panel 1035 (unknown) (no date) (unknown) All (no value) (units unknown ) (unknown) Result panel 1036 (unknown) (no date) (unknown) All (no value) (units unknown ) (unknown) Result panel 1037 (unknown) (no date) (unknown) All (no value) (units unknown ) (unknown) Result panel 1038 (unknown) (no date) (unknown) All (no value) (units unknown ) (unknown) Result panel 1039 (unknown) (no date) (unknown) All (no value) (units unknown ) (unknown) Result panel 1040 (unknown) (no date) (unknown) All (no value) (units unknown ) (unknown) Result panel 1041 (unknown) (no date) (unknown) All (no value) (units unknown ) (unknown) Result panel 1042 (unknown) (no date) (unknown) All (no value) (units unknown ) (unknown) Result panel 1043 (unknown) (no date) (unknown) All (no value) (units unknown ) (unknown) Result panel 1044 (unknown) (no date) (unknown) All (no value) (units unknown ) (unknown) Result panel 1045 (unknown) (no date) (unknown) All (no value) (units unknown ) (unknown) Result panel 1046 (unknown) (no date) (unknown) All (no value) (units unknown ) (unknown) Result panel 1047 (unknown) (no date) (unknown) All (no value) (units unknown ) (unknown) Result panel 1048 (unknown) (no date) (unknown) All (no value) (units unknown ) (unknown) Result panel 1049 (unknown) (no date) (unknown) All (no value) (units unknown ) (unknown) Result panel 1050 (unknown) (no date) (unknown) All (no value) (units unknown ) (unknown) Result panel 1051 (unknown) (no date) (unknown) All (no value) (units unknown ) (unknown) Result panel 1052 (unknown) (no date) (unknown) All (no value) (units unknown ) (unknown) Result panel 1053 (unknown) (no date) (unknown) All (no value) (units unknown ) (unknown) Result panel 1054 (unknown) (no date) (unknown) All (no value) (units unknown ) (unknown) Result panel 1055 (unknown) (no date) (unknown) All (no value) (units unknown ) (unknown) Result panel 1056 (unknown) (no date) (unknown) All (no value) (units unknown ) (unknown) Result panel 1057 (unknown) (no date) (unknown) All (no value) (units unknown ) (unknown) Result panel 1058 (unknown) (no date) (unknown) All (no value) (units unknown ) (unknown) Result panel 1059 (unknown) (no date) (unknown) All (no value) (units unknown ) (unknown) Result panel 1060 (unknown) (no date) (unknown) All (no value) (units unknown ) (unknown) Result panel 1061 (unknown) (no date) (unknown) All (no value) (units unknown ) (unknown) Result panel 1062 (unknown) (no date) (unknown) All (no value) (units unknown ) (unknown) Result panel 1063 (unknown) (no date) (unknown) All (no value) (units unknown ) (unknown) Result panel 1064 (unknown) (no date) (unknown) All (no value) (units unknown ) (unknown) Result panel 1065 (unknown) (no date) (unknown) All (no value) (units unknown ) (unknown) Result panel 1066 (unknown) (no date) (unknown) All (no value) (units unknown ) (unknown) Result panel 1067 (unknown) (no date) (unknown) All (no value) (units unknown ) (unknown) Result panel 1068 (unknown) (no date) (unknown) All (no value) (units unknown ) (unknown) Result panel 1069 (unknown) (no date) (unknown) All (no value) (units unknown ) (unknown) Result panel 1070 (unknown) (no date) (unknown) All (no value) (units unknown ) (unknown) Result panel 1071 (unknown) (no date) (unknown) All (no value) (units unknown ) (unknown) Result panel 1072 (unknown) (no date) (unknown) All (no value) (units unknown ) (unknown) Result panel 1073 (unknown) (no date) (unknown) All (no value) (units unknown ) (unknown) Result panel 1074 (unknown) (no date) (unknown) All (no value) (units unknown ) (unknown) Result panel 1075 (unknown) (no date) (unknown) All (no value) (units unknown ) (unknown) Result panel 1076 (unknown) (no date) (unknown) All (no value) (units unknown ) (unknown) Result panel 1077 (unknown) (no date) (unknown) All (no value) (units unknown ) (unknown) Result panel 1078 (unknown) (no date) (unknown) All (no value) (units unknown ) (unknown) Result panel 1079 (unknown) (no date) (unknown) All (no value) (units unknown ) (unknown) Result panel 1080 (unknown) (no date) (unknown) All (no value) (units unknown ) (unknown) Result panel 1081 (unknown) (no date) (unknown) All (no value) (units unknown ) (unknown) Result panel 1082 (unknown) (no date) (unknown) All (no value) (units unknown ) (unknown) Result panel 1083 (unknown) (no date) (unknown) All (no value) (units unknown ) (unknown) Result panel 1084 (unknown) (no date) (unknown) All (no value) (units unknown ) (unknown) Result panel 1085 (unknown) (no date) (unknown) All (no value) (units unknown ) (unknown) Result panel 1086 (unknown) (no date) (unknown) All (no value) (units unknown ) (unknown) Result panel 1087 (unknown) (no date) (unknown) All (no value) (units unknown ) (unknown) Result panel 1088 (unknown) (no date) (unknown) All (no value) (units unknown ) (unknown) Result panel 1089 (unknown) (no date) (unknown) All (no value) (units unknown ) (unknown) Result panel 1090 (unknown) (no date) (unknown) All (no value) (units unknown ) (unknown) Result panel 1091 (unknown) (no date) (unknown) All (no value) (units unknown ) (unknown) Result panel 1092 (unknown) (no date) (unknown) All (no value) (units unknown ) (unknown) Result panel 1093 (unknown) (no date) (unknown) All (no value) (units unknown ) (unknown) Result panel 1094 (unknown) (no date) (unknown) All (no value) (units unknown ) (unknown) Result panel 1095 (unknown) (no date) (unknown) All (no value) (units unknown ) (unknown) Result panel 1096 (unknown) (no date) (unknown) All (no value) (units unknown ) (unknown) Result panel 1097 (unknown) (no date) (unknown) All (no value) (units unknown ) (unknown) Result panel 1098 (unknown) (no date) (unknown) All (no value) (units unknown ) (unknown) Result panel 1099 (unknown) (no date) (unknown) All (no value) (units unknown ) (unknown) Result panel 1100 (unknown) (no date) (unknown) All (no value) (units unknown ) (unknown) Result panel 1101 (unknown) (no date) (unknown) All (no value) (units unknown ) (unknown) Result panel 1102 (unknown) (no date) (unknown) All (no value) (units unknown ) (unknown) Result panel 1103 (unknown) (no date) (unknown) All (no value) (units unknown ) (unknown) Result panel 1104 (unknown) (no date) (unknown) All (no value) (units unknown ) (unknown) Result panel 1105 (unknown) (no date) (unknown) All (no value) (units unknown ) (unknown) Result panel 1106 (unknown) (no date) (unknown) All (no value) (units unknown ) (unknown) Result panel 1107 (unknown) (no date) (unknown) All (no value) (units unknown ) (unknown) Result panel 1108 (unknown) (no date) (unknown) All (no value) (units unknown ) (unknown) Result panel 1109 (unknown) (no date) (unknown) All (no value) (units unknown ) (unknown) Result panel 1110 (unknown) (no date) (unknown) All (no value) (units unknown ) (unknown) Result panel 1111 (unknown) (no date) (unknown) All (no value) (units unknown ) (unknown) Result panel 1112 (unknown) (no date) (unknown) All (no value) (units unknown ) (unknown) Result panel 1113 (unknown) (no date) (unknown) All (no value) (units unknown ) (unknown) Result panel 1114 (unknown) (no date) (unknown) All (no value) (units unknown ) (unknown) Result panel 1115 (unknown) (no date) (unknown) All (no value) (units unknown ) (unknown) Result panel 1116 (unknown) (no date) (unknown) All (no value) (units unknown ) (unknown) Result panel 1117 (unknown) (no date) (unknown) All (no value) (units unknown ) (unknown) Result panel 1118 (unknown) (no date) (unknown) All (no value) (units unknown ) (unknown) Result panel 1119 (unknown) (no date) (unknown) All (no value) (units unknown ) (unknown) Result panel 1120 (unknown) (no date) (unknown) All (no value) (units unknown ) (unknown) Result panel 1121 (unknown) (no date) (unknown) All (no value) (units unknown ) (unknown) Result panel 1122 (unknown) (no date) (unknown) All (no value) (units unknown ) (unknown) Result panel 1123 (unknown) (no date) (unknown) All (no value) (units unknown ) (unknown) Result panel 1124 (unknown) (no date) (unknown) All (no value) (units unknown ) (unknown) Result panel 1125 (unknown) (no date) (unknown) All (no value) (units unknown ) (unknown) Result panel 1126 (unknown) (no date) (unknown) All (no value) (units unknown ) (unknown) Result panel 1127 (unknown) (no date) (unknown) All (no value) (units unknown ) (unknown) Result panel 1128 (unknown) (no date) (unknown) All (no value) (units unknown ) (unknown) Result panel 1129 (unknown) (no date) (unknown) All (no value) (units unknown ) (unknown) Result panel 1130 (unknown) (no date) (unknown) All (no value) (units unknown ) (unknown) Result panel 1131 (unknown) (no date) (unknown) All (no value) (units unknown ) (unknown) Result panel 1132 (unknown) (no date) (unknown) All (no value) (units unknown ) (unknown) Result panel 1133 (unknown) (no date) (unknown) All (no value) (units unknown ) (unknown) Result panel 1134 (unknown) (no date) (unknown) All (no value) (units unknown ) (unknown) Result panel 1135 (unknown) (no date) (unknown) All (no value) (units unknown ) (unknown) Result panel 1136 (unknown) (no date) (unknown) All (no value) (units unknown ) (unknown) Result panel 1137 (unknown) (no date) (unknown) All (no value) (units unknown ) (unknown) Result panel 1138 (unknown) (no date) (unknown) All (no value) (units unknown ) (unknown) Result panel 1139 (unknown) (no date) (unknown) All (no value) (units unknown ) (unknown) Result panel 1140 (unknown) (no date) (unknown) All (no value) (units unknown ) (unknown) Result panel 1141 (unknown) (no date) (unknown) All (no value) (units unknown ) (unknown) Result panel 1142 (unknown) (no date) (unknown) All (no value) (units unknown ) (unknown) Result panel 1143 (unknown) (no date) (unknown) All (no value) (units unknown ) (unknown) Result panel 1144 (unknown) (no date) (unknown) All (no value) (units unknown ) (unknown) Result panel 1145 (unknown) (no date) (unknown) All (no value) (units unknown ) (unknown) Result panel 1146 (unknown) (no date) (unknown) All (no value) (units unknown ) (unknown) Result panel 1147 (unknown) (no date) (unknown) All (no value) (units unknown ) (unknown) Result panel 1148 (unknown) (no date) (unknown) All (no value) (units unknown ) (unknown) Result panel 1149 (unknown) (no date) (unknown) All (no value) (units unknown ) (unknown) Result panel 1150 (unknown) (no date) (unknown) All (no value) (units unknown ) (unknown) Result panel 1151 (unknown) (no date) (unknown) All (no value) (units unknown ) (unknown) Result panel 1152 (unknown) (no date) (unknown) All (no value) (units unknown ) (unknown) Result panel 1153 (unknown) (no date) (unknown) All (no value) (units unknown ) (unknown) Result panel 1154 (unknown) (no date) (unknown) All (no value) (units unknown ) (unknown) Result panel 1155 (unknown) (no date) (unknown) All (no value) (units unknown ) (unknown) Result panel 1156 (unknown) (no date) (unknown) All (no value) (units unknown ) (unknown) Result panel 1157 (unknown) (no date) (unknown) All (no value) (units unknown ) (unknown) Result panel 1158 (unknown) (no date) (unknown) All (no value) (units unknown ) (unknown) Result panel 1159 (unknown) (no date) (unknown) All (no value) (units unknown ) (unknown) Result panel 1160 (unknown) (no date) (unknown) All (no value) (units unknown ) (unknown) Result panel 1161 (unknown) (no date) (unknown) All (no value) (units unknown ) (unknown) Result panel 1162 (unknown) (no date) (unknown) All (no value) (units unknown ) (unknown) Result panel 1163 (unknown) (no date) (unknown) All (no value) (units unknown ) (unknown) Result panel 1164 (unknown) (no date) (unknown) All (no value) (units unknown ) (unknown) Result panel 1165 (unknown) (no date) (unknown) All (no value) (units unknown ) (unknown) Result panel 1166 (unknown) (no date) (unknown) All (no value) (units unknown ) (unknown) Result panel 1167 (unknown) (no date) (unknown) All (no value) (units unknown ) (unknown) Result panel 1168 (unknown) (no date) (unknown) All (no value) (units unknown ) (unknown) Result panel 1169 (unknown) (no date) (unknown) All (no value) (units unknown ) (unknown) Result panel 1170 (unknown) (no date) (unknown) All (no value) (units unknown ) (unknown) Result panel 1171 (unknown) (no date) (unknown) All (no value) (units unknown ) (unknown) Result panel 1172 (unknown) (no date) (unknown) All (no value) (units unknown ) (unknown) Result panel 1173 (unknown) (no date) (unknown) All (no value) (units unknown ) (unknown) Result panel 1174 (unknown) (no date) (unknown) All (no value) (units unknown ) (unknown) Result panel 1175 (unknown) (no date) (unknown) All (no value) (units unknown ) (unknown) Result panel 1176 (unknown) (no date) (unknown) All (no value) (units unknown ) (unknown) Result panel 1177 (unknown) (no date) (unknown) All (no value) (units unknown ) (unknown) Result panel 1178 (unknown) (no date) (unknown) All (no value) (units unknown ) (unknown) Result panel 1179 (unknown) (no date) (unknown) All (no value) (units unknown ) (unknown) Result panel 1180 (unknown) (no date) (unknown) All (no value) (units unknown ) (unknown) Result panel 1181 (unknown) (no date) (unknown) All (no value) (units unknown ) (unknown) Result panel 1182 (unknown) (no date) (unknown) All (no value) (units unknown ) (unknown) Result panel 1183 (unknown) (no date) (unknown) All (no value) (units unknown ) (unknown) Result panel 1184 (unknown) (no date) (unknown) All (no value) (units unknown ) (unknown) Result panel 1185 (unknown) (no date) (unknown) All (no value) (units unknown ) (unknown) Result panel 1186 (unknown) (no date) (unknown) All (no value) (units unknown ) (unknown) Result panel 1187 (unknown) (no date) (unknown) All (no value) (units unknown ) (unknown) Result panel 1188 (unknown) (no date) (unknown) All (no value) (units unknown ) (unknown) Result panel 1189 (unknown) (no date) (unknown) All (no value) (units unknown ) (unknown) Result panel 1190 (unknown) (no date) (unknown) All (no value) (units unknown ) (unknown) Result panel 1191 (unknown) (no date) (unknown) All (no value) (units unknown ) (unknown) Result panel 1192 (unknown) (no date) (unknown) All (no value) (units unknown ) (unknown) Result panel 1193 (unknown) (no date) (unknown) All (no value) (units unknown ) (unknown) Result panel 1194 (unknown) (no date) (unknown) All (no value) (units unknown ) (unknown) Result panel 1195 (unknown) (no date) (unknown) All (no value) (units unknown ) (unknown) Result panel 1196 (unknown) (no date) (unknown) All (no value) (units unknown ) (unknown) Result panel 1197 (unknown) (no date) (unknown) All (no value) (units unknown ) (unknown) Result panel 1198 (unknown) (no date) (unknown) All (no value) (units unknown ) (unknown) Result panel 1199 (unknown) (no date) (unknown) All (no value) (units unknown ) (unknown) Result panel 1200 (unknown) (no date) (unknown) All (no value) (units unknown ) (unknown) Result panel 1201 (unknown) (no date) (unknown) All (no value) (units unknown ) (unknown) Result panel 1202 (unknown) (no date) (unknown) All (no value) (units unknown ) (unknown) Result panel 1203 (unknown) (no date) (unknown) All (no value) (units unknown ) (unknown) Result panel 1204 (unknown) (no date) (unknown) All (no value) (units unknown ) (unknown) Result panel 1205 (unknown) (no date) (unknown) All (no value) (units unknown ) (unknown) Result panel 1206 (unknown) (no date) (unknown) All (no value) (units unknown ) (unknown) Result panel 1207 (unknown) (no date) (unknown) All (no value) (units unknown ) (unknown) Result panel 1208 (unknown) (no date) (unknown) All (no value) (units unknown ) (unknown) Result panel 1209 (unknown) (no date) (unknown) All (no value) (units unknown ) (unknown) Result panel 1210 (unknown) (no date) (unknown) All (no value) (units unknown ) (unknown) Result panel 1211 (unknown) (no date) (unknown) All (no value) (units unknown ) (unknown) Result panel 1212 (unknown) (no date) (unknown) All (no value) (units unknown ) (unknown) Result panel 1213 (unknown) (no date) (unknown) All (no value) (units unknown ) (unknown) Result panel 1214 (unknown) (no date) (unknown) All (no value) (units unknown ) (unknown) Result panel 1215 (unknown) (no date) (unknown) All (no value) (units unknown ) (unknown) Result panel 1216 (unknown) (no date) (unknown) All (no value) (units unknown ) (unknown) Result panel 1217 (unknown) (no date) (unknown) All (no value) (units unknown ) (unknown) Result panel 1218 (unknown) (no date) (unknown) All (no value) (units unknown ) (unknown) Result panel 1219 (unknown) (no date) (unknown) All (no value) (units unknown ) (unknown) Result panel 1220 (unknown) (no date) (unknown) All (no value) (units unknown ) (unknown) Result panel 1221 (unknown) (no date) (unknown) All (no value) (units unknown ) (unknown) Result panel 1222 (unknown) (no date) (unknown) All (no value) (units unknown ) (unknown) Result panel 1223 (unknown) (no date) (unknown) All (no value) (units unknown ) (unknown) Result panel 1224 (unknown) (no date) (unknown) All (no value) (units unknown ) (unknown) Result panel 1225 (unknown) (no date) (unknown) All (no value) (units unknown ) (unknown) Result panel 1226 (unknown) (no date) (unknown) All (no value) (units unknown ) (unknown) Result panel 1227 (unknown) (no date) (unknown) All (no value) (units unknown ) (unknown) Result panel 1228 (unknown) (no date) (unknown) All (no value) (units unknown ) (unknown) Result panel 1229 (unknown) (no date) (unknown) All (no value) (units unknown ) (unknown) Result panel 1230 (unknown) (no date) (unknown) All (no value) (units unknown ) (unknown) Result panel 1231 (unknown) (no date) (unknown) All (no value) (units unknown ) (unknown) Result panel 1232 (unknown) (no date) (unknown) All (no value) (units unknown ) (unknown) Result panel 1233 (unknown) (no date) (unknown) All (no value) (units unknown ) (unknown) Result panel 1234 (unknown) (no date) (unknown) All (no value) (units unknown ) (unknown) Result panel 1235 (unknown) (no date) (unknown) All (no value) (units unknown ) (unknown) Result panel 1236 (unknown) (no date) (unknown) All (no value) (units unknown ) (unknown) Result panel 1237 (unknown) (no date) (unknown) All (no value) (units unknown ) (unknown) Result panel 1238 (unknown) (no date) (unknown) All (no value) (units unknown ) (unknown) Result panel 1239 (unknown) (no date) (unknown) All (no value) (units unknown ) (unknown) Result panel 1240 (unknown) (no date) (unknown) All (no value) (units unknown ) (unknown) Result panel 1241 (unknown) (no date) (unknown) All (no value) (units unknown ) (unknown) Result panel 1242 (unknown) (no date) (unknown) All (no value) (units unknown ) (unknown) Result panel 1243 (unknown) (no date) (unknown) All (no value) (units unknown ) (unknown) Result panel 1244 (unknown) (no date) (unknown) All (no value) (units unknown ) (unknown) Result panel 1245 (unknown) (no date) (unknown) All (no value) (units unknown ) (unknown) Result panel 1246 (unknown) (no date) (unknown) All (no value) (units unknown ) (unknown) Result panel 1247 (unknown) (no date) (unknown) All (no value) (units unknown ) (unknown) Result panel 1248 (unknown) (no date) (unknown) All (no value) (units unknown ) (unknown) Result panel 1249 (unknown) (no date) (unknown) All (no value) (units unknown ) (unknown) Result panel 1250 (unknown) (no date) (unknown) All (no value) (units unknown ) (unknown) Result panel 1251 (unknown) (no date) (unknown) All (no value) (units unknown ) (unknown) Result panel 1252 (unknown) (no date) (unknown) All (no value) (units unknown ) (unknown) Result panel 1253 (unknown) (no date) (unknown) All (no value) (units unknown ) (unknown) Result panel 1254 (unknown) (no date) (unknown) All (no value) (units unknown ) (unknown) Result panel 1255 (unknown) (no date) (unknown) All (no value) (units unknown ) (unknown) Result panel 1256 (unknown) (no date) (unknown) All (no value) (units unknown ) (unknown) Result panel 1257 (unknown) (no date) (unknown) All (no value) (units unknown ) (unknown) Result panel 1258 (unknown) (no date) (unknown) All (no value) (units unknown ) (unknown) Result panel 1259 (unknown) (no date) (unknown) All (no value) (units unknown ) (unknown) Result panel 1260 (unknown) (no date) (unknown) All (no value) (units unknown ) (unknown) Result panel 1261 (unknown) (no date) (unknown) All (no value) (units unknown ) (unknown) Result panel 1262 (unknown) (no date) (unknown) All (no value) (units unknown ) (unknown) Result panel 1263 (unknown) (no date) (unknown) All (no value) (units unknown ) (unknown) Result panel 1264 (unknown) (no date) (unknown) All (no value) (units unknown ) (unknown) Result panel 1265 (unknown) (no date) (unknown) All (no value) (units unknown ) (unknown) Result panel 1266 (unknown) (no date) (unknown) All (no value) (units unknown ) (unknown) Result panel 1267 (unknown) (no date) (unknown) All (no value) (units unknown ) (unknown) Result panel 1268 (unknown) (no date) (unknown) All (no value) (units unknown ) (unknown) Result panel 1269 (unknown) (no date) (unknown) All (no value) (units unknown ) (unknown) Result panel 1270 (unknown) (no date) (unknown) All (no value) (units unknown ) (unknown) Result panel 1271 (unknown) (no date) (unknown) All (no value) (units unknown ) (unknown) Result panel 1272 (unknown) (no date) (unknown) All (no value) (units unknown ) (unknown) Result panel 1273 (unknown) (no date) (unknown) All (no value) (units unknown ) (unknown) Result panel 1274 (unknown) (no date) (unknown) All (no value) (units unknown ) (unknown) Result panel 1275 (unknown) (no date) (unknown) All (no value) (units unknown ) (unknown) Result panel 1276 (unknown) (no date) (unknown) All (no value) (units unknown ) (unknown) Result panel 1277 (unknown) (no date) (unknown) All (no value) (units unknown ) (unknown) Result panel 1278 (unknown) (no date) (unknown) All (no value) (units unknown ) (unknown) Result panel 1279 (unknown) (no date) (unknown) All (no value) (units unknown ) (unknown) Result panel 1280 (unknown) (no date) (unknown) All (no value) (units unknown ) (unknown) Result panel 1281 (unknown) (no date) (unknown) All (no value) (units unknown ) (unknown) Result panel 1282 (unknown) (no date) (unknown) All (no value) (units unknown ) (unknown) Result panel 1283 (unknown) (no date) (unknown) All (no value) (units unknown ) (unknown) Result panel 1284 (unknown) (no date) (unknown) All (no value) (units unknown ) (unknown) Result panel 1285 (unknown) (no date) (unknown) All (no value) (units unknown ) (unknown) Result panel 1286 (unknown) (no date) (unknown) All (no value) (units unknown ) (unknown) Result panel 1287 (unknown) (no date) (unknown) All (no value) (units unknown ) (unknown) Result panel 1288 (unknown) (no date) (unknown) All (no value) (units unknown ) (unknown) Result panel 1289 (unknown) (no date) (unknown) All (no value) (units unknown ) (unknown) Result panel 1290 (unknown) (no date) (unknown) All (no value) (units unknown ) (unknown) Result panel 1291 (unknown) (no date) (unknown) All (no value) (units unknown ) (unknown) Result panel 1292 (unknown) (no date) (unknown) All (no value) (units unknown ) (unknown) Result panel 1293 (unknown) (no date) (unknown) All (no value) (units unknown ) (unknown) Result panel 1294 (unknown) (no date) (unknown) All (no value) (units unknown ) (unknown) Result panel 1295 (unknown) (no date) (unknown) All (no value) (units unknown ) (unknown) Result panel 1296 (unknown) (no date) (unknown) All (no value) (units unknown ) (unknown) Result panel 1297 (unknown) (no date) (unknown) All (no value) (units unknown ) (unknown) Result panel 1298 (unknown) (no date) (unknown) All (no value) (units unknown ) (unknown) Result panel 1299 (unknown) (no date) (unknown) All (no value) (units unknown ) (unknown) Result panel 1300 (unknown) (no date) (unknown) All (no value) (units unknown ) (unknown) Result panel 1301 (unknown) (no date) (unknown) All (no value) (units unknown ) (unknown) Result panel 1302 (unknown) (no date) (unknown) All (no value) (units unknown ) (unknown) Result panel 1303 (unknown) (no date) (unknown) All (no value) (units unknown ) (unknown) Result panel 1304 (unknown) (no date) (unknown) All (no value) (units unknown ) (unknown) Result panel 1305 (unknown) (no date) (unknown) All (no value) (units unknown ) (unknown) Result panel 1306 (unknown) (no date) (unknown) All (no value) (units unknown ) (unknown) Result panel 1307 (unknown) (no date) (unknown) All (no value) (units unknown ) (unknown) Result panel 1308 (unknown) (no date) (unknown) All (no value) (units unknown ) (unknown) Result panel 1309 (unknown) (no date) (unknown) All (no value) (units unknown ) (unknown) Result panel 1310 (unknown) (no date) (unknown) All (no value) (units unknown ) (unknown) Result panel 1311 (unknown) (no date) (unknown) All (no value) (units unknown ) (unknown) Result panel 1312 (unknown) (no date) (unknown) All (no value) (units unknown ) (unknown) Result panel 1313 (unknown) (no date) (unknown) All (no value) (units unknown ) (unknown) Result panel 1314 (unknown) (no date) (unknown) All (no value) (units unknown ) (unknown) Result panel 1315 (unknown) (no date) (unknown) All (no value) (units unknown ) (unknown) Result panel 1316 (unknown) (no date) (unknown) All (no value) (units unknown ) (unknown) Result panel 1317 (unknown) (no date) (unknown) All (no value) (units unknown ) (unknown) Result panel 1318 (unknown) (no date) (unknown) All (no value) (units unknown ) (unknown) Result panel 1319 (unknown) (no date) (unknown) All (no value) (units unknown ) (unknown) Result panel 1320 (unknown) (no date) (unknown) All (no value) (units unknown ) (unknown) Result panel 1321 (unknown) (no date) (unknown) All (no value) (units unknown ) (unknown) Result panel 1322 (unknown) (no date) (unknown) All (no value) (units unknown ) (unknown) Result panel 1323 (unknown) (no date) (unknown) All (no value) (units unknown ) (unknown) Result panel 1324 (unknown) (no date) (unknown) All (no value) (units unknown ) (unknown) Result panel 1325 (unknown) (no date) (unknown) All (no value) (units unknown ) (unknown) Result panel 1326 (unknown) (no date) (unknown) All (no value) (units unknown ) (unknown) Result panel 1327 (unknown) (no date) (unknown) All (no value) (units unknown ) (unknown) Result panel 1328 (unknown) (no date) (unknown) All (no value) (units unknown ) (unknown) Result panel 1329 (unknown) (no date) (unknown) All (no value) (units unknown ) (unknown) Result panel 1330 (unknown) (no date) (unknown) All (no value) (units unknown ) (unknown) Result panel 1331 (unknown) (no date) (unknown) All (no value) (units unknown ) (unknown) Result panel 1332 (unknown) (no date) (unknown) All (no value) (units unknown ) (unknown) Result panel 1333 (unknown) (no date) (unknown) All (no value) (units unknown ) (unknown) Result panel 1334 (unknown) (no date) (unknown) All (no value) (units unknown ) (unknown) Result panel 1335 (unknown) (no date) (unknown) All (no value) (units unknown ) (unknown) Result panel 1336 (unknown) (no date) (unknown) All (no value) (units unknown ) (unknown) Result panel 1337 (unknown) (no date) (unknown) All (no value) (units unknown ) (unknown) Result panel 1338 (unknown) (no date) (unknown) All (no value) (units unknown ) (unknown) Result panel 1339 (unknown) (no date) (unknown) All (no value) (units unknown ) (unknown) Result panel 1340 (unknown) (no date) (unknown) All (no value) (units unknown ) (unknown) Result panel 1341 (unknown) (no date) (unknown) All (no value) (units unknown ) (unknown) Result panel 1342 (unknown) (no date) (unknown) All (no value) (units unknown ) (unknown) Result panel 1343 (unknown) (no date) (unknown) All (no value) (units unknown ) (unknown) Result panel 1344 (unknown) (no date) (unknown) All (no value) (units unknown ) (unknown) Result panel 1345 (unknown) (no date) (unknown) All (no value) (units unknown ) (unknown) Result panel 1346 (unknown) (no date) (unknown) All (no value) (units unknown ) (unknown) Result panel 1347 (unknown) (no date) (unknown) All (no value) (units unknown ) (unknown) Result panel 1348 (unknown) (no date) (unknown) All (no value) (units unknown ) (unknown) Result panel 1349 (unknown) (no date) (unknown) All (no value) (units unknown ) (unknown) Result panel 1350 (unknown) (no date) (unknown) All (no value) (units unknown ) (unknown) Result panel 1351 (unknown) (no date) (unknown) All (no value) (units unknown ) (unknown) Result panel 1352 (unknown) (no date) (unknown) All (no value) (units unknown ) (unknown) Result panel 1353 (unknown) (no date) (unknown) All (no value) (units unknown ) (unknown) Result panel 1354 (unknown) (no date) (unknown) All (no value) (units unknown ) (unknown) Result panel 1355 (unknown) (no date) (unknown) All (no value) (units unknown ) (unknown) Result panel 1356 (unknown) (no date) (unknown) All (no value) (units unknown ) (unknown) Result panel 1357 (unknown) (no date) (unknown) All (no value) (units unknown ) (unknown) Result panel 1358 (unknown) (no date) (unknown) All (no value) (units unknown ) (unknown) Result panel 1359 (unknown) (no date) (unknown) All (no value) (units unknown ) (unknown) Result panel 1360 (unknown) (no date) (unknown) All (no value) (units unknown ) (unknown) Result panel 1361 (unknown) (no date) (unknown) All (no value) (units unknown ) (unknown) Result panel 1362 (unknown) (no date) (unknown) All (no value) (units unknown ) (unknown) Result panel 1363 (unknown) (no date) (unknown) All (no value) (units unknown ) (unknown) Result panel 1364 (unknown) (no date) (unknown) All (no value) (units unknown ) (unknown) Result panel 1365 (unknown) (no date) (unknown) All (no value) (units unknown ) (unknown) Result panel 1366 (unknown) (no date) (unknown) All (no value) (units unknown ) (unknown) Result panel 1367 (unknown) (no date) (unknown) All (no value) (units unknown ) (unknown) Result panel 1368 (unknown) (no date) (unknown) All (no value) (units unknown ) (unknown) Result panel 1369 (unknown) (no date) (unknown) All (no value) (units unknown ) (unknown) Result panel 1370 (unknown) (no date) (unknown) All (no value) (units unknown ) (unknown) Result panel 1371 (unknown) (no date) (unknown) All (no value) (units unknown ) (unknown) Result panel 1372 (unknown) (no date) (unknown) All (no value) (units unknown ) (unknown) Result panel 1373 (unknown) (no date) (unknown) All (no value) (units unknown ) (unknown) Result panel 1374 (unknown) (no date) (unknown) All (no value) (units unknown ) (unknown) Result panel 1375 (unknown) (no date) (unknown) All (no value) (units unknown ) (unknown) Result panel 1376 (unknown) (no date) (unknown) All (no value) (units unknown ) (unknown) Result panel 1377 (unknown) (no date) (unknown) All (no value) (units unknown ) (unknown) Result panel 1378 (unknown) (no date) (unknown) All (no value) (units unknown ) (unknown) Result panel 1379 (unknown) (no date) (unknown) All (no value) (units unknown ) (unknown) Result panel 1380 (unknown) (no date) (unknown) All (no value) (units unknown ) (unknown) Result panel 1381 (unknown) (no date) (unknown) All (no value) (units unknown ) (unknown) Result panel 1382 (unknown) (no date) (unknown) All (no value) (units unknown ) (unknown) Result panel 1383 (unknown) (no date) (unknown) All (no value) (units unknown ) (unknown) Result panel 1384 (unknown) (no date) (unknown) All (no value) (units unknown ) (unknown) Result panel 1385 (unknown) (no date) (unknown) All (no value) (units unknown ) (unknown) Result panel 1386 (unknown) (no date) (unknown) All (no value) (units unknown ) (unknown) Result panel 1387 (unknown) (no date) (unknown) All (no value) (units unknown ) (unknown) Result panel 1388 (unknown) (no date) (unknown) All (no value) (units unknown ) (unknown) Result panel 1389 (unknown) (no date) (unknown) All (no value) (units unknown ) (unknown) Result panel 1390 (unknown) (no date) (unknown) All (no value) (units unknown ) (unknown) Result panel 1391 (unknown) (no date) (unknown) All (no value) (units unknown ) (unknown) Result panel 1392 (unknown) (no date) (unknown) All (no value) (units unknown ) (unknown) Result panel 1393 (unknown) (no date) (unknown) All (no value) (units unknown ) (unknown) Result panel 1394 (unknown) (no date) (unknown) All (no value) (units unknown ) (unknown) Result panel 1395 (unknown) (no date) (unknown) All (no value) (units unknown ) (unknown) Result panel 1396 (unknown) (no date) (unknown) All (no value) (units unknown ) (unknown) Result panel 1397 (unknown) (no date) (unknown) All (no value) (units unknown ) (unknown) Result panel 1398 (unknown) (no date) (unknown) All (no value) (units unknown ) (unknown) Result panel 1399 (unknown) (no date) (unknown) All (no value) (units unknown ) (unknown) Result panel 1400 (unknown) (no date) (unknown) All (no value) (units unknown ) (unknown) Result panel 1401 (unknown) (no date) (unknown) All (no value) (units unknown ) (unknown) Result panel 1402 (unknown) (no date) (unknown) All (no value) (units unknown ) (unknown) Result panel 1403 (unknown) (no date) (unknown) All (no value) (units unknown ) (unknown) Result panel 1404 (unknown) (no date) (unknown) All (no value) (units unknown ) (unknown) Result panel 1405 (unknown) (no date) (unknown) All (no value) (units unknown ) (unknown) Result panel 1406 (unknown) (no date) (unknown) All (no value) (units unknown ) (unknown) Result panel 1407 (unknown) (no date) (unknown) All (no value) (units unknown ) (unknown) Result panel 1408 (unknown) (no date) (unknown) All (no value) (units unknown ) (unknown) Result panel 1409 (unknown) (no date) (unknown) All (no value) (units unknown ) (unknown) Result panel 1410 (unknown) (no date) (unknown) All (no value) (units unknown ) (unknown) Result panel 1411 (unknown) (no date) (unknown) All (no value) (units unknown ) (unknown) Result panel 1412 (unknown) (no date) (unknown) All (no value) (units unknown ) (unknown) Result panel 1413 (unknown) (no date) (unknown) All (no value) (units unknown ) (unknown) Result panel 1414 (unknown) (no date) (unknown) All (no value) (units unknown ) (unknown) Result panel 1415 (unknown) (no date) (unknown) All (no value) (units unknown ) (unknown) Result panel 1416 (unknown) (no date) (unknown) All (no value) (units unknown ) (unknown) Result panel 1417 (unknown) (no date) (unknown) All (no value) (units unknown ) (unknown) Result panel 1418 (unknown) (no date) (unknown) All (no value) (units unknown ) (unknown) Result panel 1419 (unknown) (no date) (unknown) All (no value) (units unknown ) (unknown) Result panel 1420 (unknown) (no date) (unknown) All (no value) (units unknown ) (unknown) Result panel 1421 (unknown) (no date) (unknown) All (no value) (units unknown ) (unknown) Result panel 1422 (unknown) (no date) (unknown) All (no value) (units unknown ) (unknown) Result panel 1423 (unknown) (no date) (unknown) All (no value) (units unknown ) (unknown) Result panel 1424 (unknown) (no date) (unknown) All (no value) (units unknown ) (unknown) Result panel 1425 (unknown) (no date) (unknown) All (no value) (units unknown ) (unknown) Result panel 1426 (unknown) (no date) (unknown) All (no value) (units unknown ) (unknown) Result panel 1427 (unknown) (no date) (unknown) All (no value) (units unknown ) (unknown) Result panel 1428 (unknown) (no date) (unknown) All (no value) (units unknown ) (unknown) Result panel 1429 (unknown) (no date) (unknown) All (no value) (units unknown ) (unknown) Result panel 1430 (unknown) (no date) (unknown) All (no value) (units unknown ) (unknown) Result panel 1431 (unknown) (no date) (unknown) All (no value) (units unknown ) (unknown) Result panel 1432 (unknown) (no date) (unknown) All (no value) (units unknown ) (unknown) Result panel 1433 (unknown) (no date) (unknown) All (no value) (units unknown ) (unknown) Result panel 1434 (unknown) (no date) (unknown) All (no value) (units unknown ) (unknown) Result panel 1435 (unknown) (no date) (unknown) All (no value) (units unknown ) (unknown) Result panel 1436 (unknown) (no date) (unknown) All (no value) (units unknown ) (unknown) Result panel 1437 (unknown) (no date) (unknown) All (no value) (units unknown ) (unknown) Result panel 1438 (unknown) (no date) (unknown) All (no value) (units unknown ) (unknown) Result panel 1439 (unknown) (no date) (unknown) All (no value) (units unknown ) (unknown) Result panel 1440 (unknown) (no date) (unknown) All (no value) (units unknown ) (unknown) Result panel 1441 (unknown) (no date) (unknown) All (no value) (units unknown ) (unknown) Result panel 1442 (unknown) (no date) (unknown) All (no value) (units unknown ) (unknown) Result panel 1443 (unknown) (no date) (unknown) All (no value) (units unknown ) (unknown) Result panel 1444 (unknown) (no date) (unknown) All (no value) (units unknown ) (unknown) Result panel 1445 (unknown) (no date) (unknown) All (no value) (units unknown ) (unknown) Result panel 1446 (unknown) (no date) (unknown) All (no value) (units unknown ) (unknown) Result panel 1447 (unknown) (no date) (unknown) All (no value) (units unknown ) (unknown) Result panel 1448 (unknown) (no date) (unknown) All (no value) (units unknown ) (unknown) Result panel 1449 (unknown) (no date) (unknown) All (no value) (units unknown ) (unknown) Result panel 1450 (unknown) (no date) (unknown) All (no value) (units unknown ) (unknown) Result panel 1451 (unknown) (no date) (unknown) All (no value) (units unknown ) (unknown) Result panel 1452 (unknown) (no date) (unknown) All (no value) (units unknown ) (unknown) Result panel 1453 (unknown) (no date) (unknown) All (no value) (units unknown ) (unknown) Result panel 1454 (unknown) (no date) (unknown) All (no value) (units unknown ) (unknown) Result panel 1455 (unknown) (no date) (unknown) All (no value) (units unknown ) (unknown) Result panel 1456 (unknown) (no date) (unknown) All (no value) (units unknown ) (unknown) Result panel 1457 (unknown) (no date) (unknown) All (no value) (units unknown ) (unknown) Result panel 1458 (unknown) (no date) (unknown) All (no value) (units unknown ) (unknown) Result panel 1459 (unknown) (no date) (unknown) All (no value) (units unknown ) (unknown) Result panel 1460 (unknown) (no date) (unknown) All (no value) (units unknown ) (unknown) Result panel 1461 (unknown) (no date) (unknown) All (no value) (units unknown ) (unknown) Result panel 1462 (unknown) (no date) (unknown) All (no value) (units unknown ) (unknown) Result panel 1463 (unknown) (no date) (unknown) All (no value) (units unknown ) (unknown) Result panel 1464 (unknown) (no date) (unknown) All (no value) (units unknown ) (unknown) Result panel 1465 (unknown) (no date) (unknown) All (no value) (units unknown ) (unknown) Result panel 1466 (unknown) (no date) (unknown) All (no value) (units unknown ) (unknown) Result panel 1467 (unknown) (no date) (unknown) All (no value) (units unknown ) (unknown) Result panel 1468 (unknown) (no date) (unknown) All (no value) (units unknown ) (unknown) Result panel 1469 (unknown) (no date) (unknown) All (no value) (units unknown ) (unknown) Result panel 1470 (unknown) (no date) (unknown) All (no value) (units unknown ) (unknown) Result panel 1471 (unknown) (no date) (unknown) All (no value) (units unknown ) (unknown) Result panel 1472 (unknown) (no date) (unknown) All (no value) (units unknown ) (unknown) Result panel 1473 (unknown) (no date) (unknown) All (no value) (units unknown ) (unknown) Result panel 1474 (unknown) (no date) (unknown) All (no value) (units unknown ) (unknown) Result panel 1475 (unknown) (no date) (unknown) All (no value) (units unknown ) (unknown) Result panel 1476 (unknown) (no date) (unknown) All (no value) (units unknown ) (unknown) Result panel 1477 (unknown) (no date) (unknown) All (no value) (units unknown ) (unknown) Result panel 1478 (unknown) (no date) (unknown) All (no value) (units unknown ) (unknown) Result panel 1479 (unknown) (no date) (unknown) All (no value) (units unknown ) (unknown) Result panel 1480 (unknown) (no date) (unknown) All (no value) (units unknown ) (unknown) Result panel 1481 (unknown) (no date) (unknown) All (no value) (units unknown ) (unknown) Result panel 1482 (unknown) (no date) (unknown) All (no value) (units unknown ) (unknown) Result panel 1483 (unknown) (no date) (unknown) All (no value) (units unknown ) (unknown) Result panel 1484 (unknown) (no date) (unknown) All (no value) (units unknown ) (unknown) Result panel 1485 (unknown) (no date) (unknown) All (no value) (units unknown ) (unknown) Result panel 1486 (unknown) (no date) (unknown) All (no value) (units unknown ) (unknown) Result panel 1487 (unknown) (no date) (unknown) All (no value) (units unknown ) (unknown) Result panel 1488 (unknown) (no date) (unknown) All (no value) (units unknown ) (unknown) Result panel 1489 (unknown) (no date) (unknown) All (no value) (units unknown ) (unknown) Result panel 1490 (unknown) (no date) (unknown) All (no value) (units unknown ) (unknown) Result panel 1491 (unknown) (no date) (unknown) All (no value) (units unknown ) (unknown) Result panel 1492 (unknown) (no date) (unknown) All (no value) (units unknown ) (unknown) Result panel 1493 (unknown) (no date) (unknown) All (no value) (units unknown ) (unknown) Result panel 1494 (unknown) (no date) (unknown) All (no value) (units unknown ) (unknown) Result panel 1495 (unknown) (no date) (unknown) All (no value) (units unknown ) (unknown) Result panel 1496 (unknown) (no date) (unknown) All (no value) (units unknown ) (unknown) Result panel 1497 (unknown) (no date) (unknown) All (no value) (units unknown ) (unknown) Result panel 1498 (unknown) (no date) (unknown) All (no value) (units unknown ) (unknown) Result panel 1499 (unknown) (no date) (unknown) All (no value) (units unknown ) (unknown) Result panel 1500 (unknown) (no date) (unknown) All (no value) (units unknown ) (unknown) Result panel 1501 (unknown) (no date) (unknown) All (no value) (units unknown ) (unknown) Result panel 1502 (unknown) (no date) (unknown) All (no value) (units unknown ) (unknown) Result panel 1503 (unknown) (no date) (unknown) All (no value) (units unknown ) (unknown) Result panel 1504 (unknown) (no date) (unknown) All (no value) (units unknown ) (unknown) Result panel 1505 (unknown) (no date) (unknown) All (no value) (units unknown ) (unknown) Result panel 1506 (unknown) (no date) (unknown) All (no value) (units unknown ) (unknown) Result panel 1507 (unknown) (no date) (unknown) All (no value) (units unknown ) (unknown) Result panel 1508 (unknown) (no date) (unknown) All (no value) (units unknown ) (unknown) Result panel 1509 (unknown) (no date) (unknown) All (no value) (units unknown ) (unknown) Result panel 1510 (unknown) (no date) (unknown) All (no value) (units unknown ) (unknown) Result panel 1511 (unknown) (no date) (unknown) All (no value) (units unknown ) (unknown) Result panel 1512 (unknown) (no date) (unknown) All (no value) (units unknown ) (unknown) Result panel 1513 (unknown) (no date) (unknown) All (no value) (units unknown ) (unknown) Result panel 1514 (unknown) (no date) (unknown) All (no value) (units unknown ) (unknown) Result panel 1515 (unknown) (no date) (unknown) All (no value) (units unknown ) (unknown) Result panel 1516 (unknown) (no date) (unknown) All (no value) (units unknown ) (unknown) Result panel 1517 (unknown) (no date) (unknown) All (no value) (units unknown ) (unknown) Result panel 1518 (unknown) (no date) (unknown) All (no value) (units unknown ) (unknown) Result panel 1519 (unknown) (no date) (unknown) All (no value) (units unknown ) (unknown) Result panel 1520 (unknown) (no date) (unknown) All (no value) (units unknown ) (unknown) Result panel 1521 (unknown) (no date) (unknown) All (no value) (units unknown ) (unknown) Result panel 1522 (unknown) (no date) (unknown) All (no value) (units unknown ) (unknown) Result panel 1523 (unknown) (no date) (unknown) All (no value) (units unknown ) (unknown) Result panel 1524 (unknown) (no date) (unknown) All (no value) (units unknown ) (unknown) Result panel 1525 (unknown) (no date) (unknown) All (no value) (units unknown ) (unknown) Result panel 1526 (unknown) (no date) (unknown) All (no value) (units unknown ) (unknown) Result panel 1527 (unknown) (no date) (unknown) All (no value) (units unknown ) (unknown) Result panel 1528 (unknown) (no date) (unknown) All (no value) (units unknown ) (unknown) Result panel 1529 (unknown) (no date) (unknown) All (no value) (units unknown ) (unknown) Result panel 1530 (unknown) (no date) (unknown) All (no value) (units unknown ) (unknown) Result panel 1531 (unknown) (no date) (unknown) All (no value) (units unknown ) (unknown) Result panel 1532 (unknown) (no date) (unknown) All (no value) (units unknown ) (unknown) Result panel 1533 (unknown) (no date) (unknown) All (no value) (units unknown ) (unknown) Result panel 1534 (unknown) (no date) (unknown) All (no value) (units unknown ) (unknown) Result panel 1535 (unknown) (no date) (unknown) All (no value) (units unknown ) (unknown) Result panel 1536 (unknown) (no date) (unknown) All (no value) (units unknown ) (unknown) Result panel 1537 (unknown) (no date) (unknown) All (no value) (units unknown ) (unknown) Result panel 1538 (unknown) (no date) (unknown) All (no value) (units unknown ) (unknown) Result panel 1539 (unknown) (no date) (unknown) All (no value) (units unknown ) (unknown) Result panel 1540 (unknown) (no date) (unknown) All (no value) (units unknown ) (unknown) Result panel 1541 (unknown) (no date) (unknown) All (no value) (units unknown ) (unknown) Result panel 1542 (unknown) (no date) (unknown) All (no value) (units unknown ) (unknown) Result panel 1543 (unknown) (no date) (unknown) All (no value) (units unknown ) (unknown) Result panel 1544 (unknown) (no date) (unknown) All (no value) (units unknown ) (unknown) Result panel 1545 (unknown) (no date) (unknown) All (no value) (units unknown ) (unknown) Result panel 1546 (unknown) (no date) (unknown) All (no value) (units unknown ) (unknown) Result panel 1547 (unknown) (no date) (unknown) All (no value) (units unknown ) (unknown) Result panel 1548 (unknown) (no date) (unknown) All (no value) (units unknown ) (unknown) Result panel 1549 (unknown) (no date) (unknown) All (no value) (units unknown ) (unknown) Result panel 1550 (unknown) (no date) (unknown) All (no value) (units unknown ) (unknown) Result panel 1551 (unknown) (no date) (unknown) All (no value) (units unknown ) (unknown) Result panel 1552 (unknown) (no date) (unknown) All (no value) (units unknown ) (unknown) Result panel 1553 (unknown) (no date) (unknown) All (no value) (units unknown ) (unknown) Result panel 1554 (unknown) (no date) (unknown) All (no value) (units unknown ) (unknown) Result panel 1555 (unknown) (no date) (unknown) All (no value) (units unknown ) (unknown) Result panel 1556 (unknown) (no date) (unknown) All (no value) (units unknown ) (unknown) Result panel 1557 (unknown) (no date) (unknown) All (no value) (units unknown ) (unknown) Result panel 1558 (unknown) (no date) (unknown) All (no value) (units unknown ) (unknown) Result panel 1559 (unknown) (no date) (unknown) All (no value) (units unknown ) (unknown) Result panel 1560 (unknown) (no date) (unknown) All (no value) (units unknown ) (unknown) Result panel 1561 (unknown) (no date) (unknown) All (no value) (units unknown ) (unknown) Result panel 1562 (unknown) (no date) (unknown) All (no value) (units unknown ) (unknown) Result panel 1563 (unknown) (no date) (unknown) All (no value) (units unknown ) (unknown) Result panel 1564 (unknown) (no date) (unknown) All (no value) (units unknown ) (unknown) Result panel 1565 (unknown) (no date) (unknown) All (no value) (units unknown ) (unknown) Result panel 1566 (unknown) (no date) (unknown) All (no value) (units unknown ) (unknown) Result panel 1567 (unknown) (no date) (unknown) All (no value) (units unknown ) (unknown) Result panel 1568 (unknown) (no date) (unknown) All (no value) (units unknown ) (unknown) Result panel 1569 (unknown) (no date) (unknown) All (no value) (units unknown ) (unknown) Result panel 1570 (unknown) (no date) (unknown) All (no value) (units unknown ) (unknown) Result panel 1571 (unknown) (no date) (unknown) All (no value) (units unknown ) (unknown) Result panel 1572 (unknown) (no date) (unknown) All (no value) (units unknown ) (unknown) Result panel 1573 (unknown) (no date) (unknown) All (no value) (units unknown ) (unknown) Result panel 1574 (unknown) (no date) (unknown) All (no value) (units unknown ) (unknown) Result panel 1575 (unknown) (no date) (unknown) All (no value) (units unknown ) (unknown) Result panel 1576 (unknown) (no date) (unknown) All (no value) (units unknown ) (unknown) Result panel 1577 (unknown) (no date) (unknown) All (no value) (units unknown ) (unknown) Result panel 1578 (unknown) (no date) (unknown) All (no value) (units unknown ) (unknown) Result panel 1579 (unknown) (no date) (unknown) All (no value) (units unknown ) (unknown) Result panel 1580 (unknown) (no date) (unknown) All (no value) (units unknown ) (unknown) Result panel 1581 (unknown) (no date) (unknown) All (no value) (units unknown ) (unknown) Result panel 1582 (unknown) (no date) (unknown) All (no value) (units unknown ) (unknown) Result panel 1583 (unknown) (no date) (unknown) All (no value) (units unknown ) (unknown) Result panel 1584 (unknown) (no date) (unknown) All (no value) (units unknown ) (unknown) Result panel 1585 (unknown) (no date) (unknown) All (no value) (units unknown ) (unknown) Result panel 1586 (unknown) (no date) (unknown) All (no value) (units unknown ) (unknown) Result panel 1587 (unknown) (no date) (unknown) All (no value) (units unknown ) (unknown) Result panel 1588 (unknown) (no date) (unknown) All (no value) (units unknown ) (unknown) Result panel 1589 (unknown) (no date) (unknown) All (no value) (units unknown ) (unknown) Result panel 1590 (unknown) (no date) (unknown) All (no value) (units unknown ) (unknown) Result panel 1591 (unknown) (no date) (unknown) All (no value) (units unknown ) (unknown) Result panel 1592 (unknown) (no date) (unknown) All (no value) (units unknown ) (unknown) Result panel 1593 (unknown) (no date) (unknown) All (no value) (units unknown ) (unknown) Result panel 1594 (unknown) (no date) (unknown) All (no value) (units unknown ) (unknown) Result panel 1595 (unknown) (no date) (unknown) All (no value) (units unknown ) (unknown) Result panel 1596 (unknown) (no date) (unknown) All (no value) (units unknown ) (unknown) Result panel 1597 (unknown) (no date) (unknown) All (no value) (units unknown ) (unknown) Result panel 1598 (unknown) (no date) (unknown) All (no value) (units unknown ) (unknown) Result panel 1599 (unknown) (no date) (unknown) All (no value) (units unknown ) (unknown) Result panel 1600 (unknown) (no date) (unknown) All (no value) (units unknown ) (unknown) Result panel 1601 (unknown) (no date) (unknown) All (no value) (units unknown ) (unknown) Result panel 1602 (unknown) (no date) (unknown) All (no value) (units unknown ) (unknown) Result panel 1603 (unknown) (no date) (unknown) All (no value) (units unknown ) (unknown) Result panel 1604 (unknown) (no date) (unknown) All (no value) (units unknown ) (unknown) Result panel 1605 (unknown) (no date) (unknown) All (no value) (units unknown ) (unknown) Result panel 1606 (unknown) (no date) (unknown) All (no value) (units unknown ) (unknown) Result panel 1607 (unknown) (no date) (unknown) All (no value) (units unknown ) (unknown) Result panel 1608 (unknown) (no date) (unknown) All (no value) (units unknown ) (unknown) Result panel 1609 (unknown) (no date) (unknown) All (no value) (units unknown ) (unknown) Result panel 1610 (unknown) (no date) (unknown) All (no value) (units unknown ) (unknown) Result panel 1611 (unknown) (no date) (unknown) All (no value) (units unknown ) (unknown) Result panel 1612 (unknown) (no date) (unknown) All (no value) (units unknown ) (unknown) Result panel 1613 (unknown) (no date) (unknown) All (no value) (units unknown ) (unknown) Result panel 1614 (unknown) (no date) (unknown) All (no value) (units unknown ) (unknown) Result panel 1615 (unknown) (no date) (unknown) All (no value) (units unknown ) (unknown) Result panel 1616 (unknown) (no date) (unknown) All (no value) (units unknown ) (unknown) Result panel 1617 (unknown) (no date) (unknown) All (no value) (units unknown ) (unknown) Result panel 1618 (unknown) (no date) (unknown) All (no value) (units unknown ) (unknown) Result panel 1619 (unknown) (no date) (unknown) All (no value) (units unknown ) (unknown) Result panel 1620 (unknown) (no date) (unknown) All (no value) (units unknown ) (unknown) Result panel 1621 (unknown) (no date) (unknown) All (no value) (units unknown ) (unknown) Result panel 1622 (unknown) (no date) (unknown) All (no value) (units unknown ) (unknown) Result panel 1623 (unknown) (no date) (unknown) All (no value) (units unknown ) (unknown) Result panel 1624 (unknown) (no date) (unknown) All (no value) (units unknown ) (unknown) Result panel 1625 (unknown) (no date) (unknown) All (no value) (units unknown ) (unknown) Result panel 1626 (unknown) (no date) (unknown) All (no value) (units unknown ) (unknown) Result panel 1627 (unknown) (no date) (unknown) All (no value) (units unknown ) (unknown) Result panel 1628 (unknown) (no date) (unknown) All (no value) (units unknown ) (unknown) Result panel 1629 (unknown) (no date) (unknown) All (no value) (units unknown ) (unknown) Result panel 1630 (unknown) (no date) (unknown) All (no value) (units unknown ) (unknown) Result panel 1631 (unknown) (no date) (unknown) All (no value) (units unknown ) (unknown) Result panel 1632 (unknown) (no date) (unknown) All (no value) (units unknown ) (unknown) Result panel 1633 (unknown) (no date) (unknown) All (no value) (units unknown ) (unknown) Result panel 1634 (unknown) (no date) (unknown) All (no value) (units unknown ) (unknown) Result panel 1635 (unknown) (no date) (unknown) All (no value) (units unknown ) (unknown) Result panel 1636 (unknown) (no date) (unknown) All (no value) (units unknown ) (unknown) Result panel 1637 (unknown) (no date) (unknown) All (no value) (units unknown ) (unknown) Result panel 1638 (unknown) (no date) (unknown) All (no value) (units unknown ) (unknown) Result panel 1639 (unknown) (no date) (unknown) All (no value) (units unknown ) (unknown) Result panel 1640 (unknown) (no date) (unknown) All (no value) (units unknown ) (unknown) Result panel 1641 (unknown) (no date) (unknown) All (no value) (units unknown ) (unknown) Result panel 1642 (unknown) (no date) (unknown) All (no value) (units unknown ) (unknown) Result panel 1643 (unknown) (no date) (unknown) All (no value) (units unknown ) (unknown) Result panel 1644 (unknown) (no date) (unknown) All (no value) (units unknown ) (unknown) Result panel 1645 (unknown) (no date) (unknown) All (no value) (units unknown ) (unknown) Result panel 1646 (unknown) (no date) (unknown) All (no value) (units unknown ) (unknown) Result panel 1647 (unknown) (no date) (unknown) All (no value) (units unknown ) (unknown) Result panel 1648 (unknown) (no date) (unknown) All (no value) (units unknown ) (unknown) Result panel 1649 (unknown) (no date) (unknown) All (no value) (units unknown ) (unknown) Result panel 1650 (unknown) (no date) (unknown) All (no value) (units unknown ) (unknown) Result panel 1651 (unknown) (no date) (unknown) All (no value) (units unknown ) (unknown) Result panel 1652 (unknown) (no date) (unknown) All (no value) (units unknown ) (unknown) Result panel 1653 (unknown) (no date) (unknown) All (no value) (units unknown ) (unknown) Result panel 1654 (unknown) (no date) (unknown) All (no value) (units unknown ) (unknown) Result panel 1655 (unknown) (no date) (unknown) All (no value) (units unknown ) (unknown) Result panel 1656 (unknown) (no date) (unknown) All (no value) (units unknown ) (unknown) Result panel 1657 (unknown) (no date) (unknown) All (no value) (units unknown ) (unknown) Result panel 1658 (unknown) (no date) (unknown) All (no value) (units unknown ) (unknown) Result panel 1659 (unknown) (no date) (unknown) All (no value) (units unknown ) (unknown) Result panel 1660 (unknown) (no date) (unknown) All (no value) (units unknown ) (unknown) Result panel 1661 (unknown) (no date) (unknown) All (no value) (units unknown ) (unknown) Result panel 1662 (unknown) (no date) (unknown) All (no value) (units unknown ) (unknown) Result panel 1663 (unknown) (no date) (unknown) All (no value) (units unknown ) (unknown) Result panel 1664 (unknown) (no date) (unknown) All (no value) (units unknown ) (unknown) Result panel 1665 (unknown) (no date) (unknown) All (no value) (units unknown ) (unknown) Result panel 1666 (unknown) (no date) (unknown) All (no value) (units unknown ) (unknown) Result panel 1667 (unknown) (no date) (unknown) All (no value) (units unknown ) (unknown) Result panel 1668 (unknown) (no date) (unknown) All (no value) (units unknown ) (unknown) Result panel 1669 (unknown) (no date) (unknown) All (no value) (units unknown ) (unknown) Result panel 1670 (unknown) (no date) (unknown) All (no value) (units unknown ) (unknown) Result panel 1671 (unknown) (no date) (unknown) All (no value) (units unknown ) (unknown) Result panel 1672 (unknown) (no date) (unknown) All (no value) (units unknown ) (unknown) Result panel 1673 (unknown) (no date) (unknown) All (no value) (units unknown ) (unknown) Result panel 1674 (unknown) (no date) (unknown) All (no value) (units unknown ) (unknown) Result panel 1675 (unknown) (no date) (unknown) All (no value) (units unknown ) (unknown) Result panel 1676 (unknown) (no date) (unknown) All (no value) (units unknown ) (unknown) Result panel 1677 (unknown) (no date) (unknown) All (no value) (units unknown ) (unknown) Result panel 1678 (unknown) (no date) (unknown) All (no value) (units unknown ) (unknown) Result panel 1679 (unknown) (no date) (unknown) All (no value) (units unknown ) (unknown) Result panel 1680 (unknown) (no date) (unknown) All (no value) (units unknown ) (unknown) Result panel 1681 (unknown) (no date) (unknown) All (no value) (units unknown ) (unknown) Result panel 1682 (unknown) (no date) (unknown) All (no value) (units unknown ) (unknown) Result panel 1683 (unknown) (no date) (unknown) All (no value) (units unknown ) (unknown) Result panel 1684 (unknown) (no date) (unknown) All (no value) (units unknown ) (unknown) Result panel 1685 (unknown) (no date) (unknown) All (no value) (units unknown ) (unknown) Result panel 1686 (unknown) (no date) (unknown) All (no value) (units unknown ) (unknown) Result panel 1687 (unknown) (no date) (unknown) All (no value) (units unknown ) (unknown) Result panel 1688 (unknown) (no date) (unknown) All (no value) (units unknown ) (unknown) Result panel 1689 (unknown) (no date) (unknown) All (no value) (units unknown ) (unknown) Result panel 1690 (unknown) (no date) (unknown) All (no value) (units unknown ) (unknown) Result panel 1691 (unknown) (no date) (unknown) All (no value) (units unknown ) (unknown) Result panel 1692 (unknown) (no date) (unknown) All (no value) (units unknown ) (unknown) Result panel 1693 (unknown) (no date) (unknown) All (no value) (units unknown ) (unknown) Result panel 1694 (unknown) (no date) (unknown) All (no value) (units unknown ) (unknown) Result panel 1695 (unknown) (no date) (unknown) All (no value) (units unknown ) (unknown) Result panel 1696 (unknown) (no date) (unknown) All (no value) (units unknown ) (unknown) Result panel 1697 (unknown) (no date) (unknown) All (no value) (units unknown ) (unknown) Result panel 1698 (unknown) (no date) (unknown) All (no value) (units unknown ) (unknown) Result panel 1699 (unknown) (no date) (unknown) All (no value) (units unknown ) (unknown) Result panel 1700 (unknown) (no date) (unknown) All (no value) (units unknown ) (unknown) Result panel 1701 (unknown) (no date) (unknown) All (no value) (units unknown ) (unknown) Result panel 1702 (unknown) (no date) (unknown) All (no value) (units unknown ) (unknown) Result panel 1703 (unknown) (no date) (unknown) All (no value) (units unknown ) (unknown) Result panel 1704 (unknown) (no date) (unknown) All (no value) (units unknown ) (unknown) Result panel 1705 (unknown) (no date) (unknown) All (no value) (units unknown ) (unknown) Result panel 1706 (unknown) (no date) (unknown) All (no value) (units unknown ) (unknown) Result panel 1707 (unknown) (no date) (unknown) All (no value) (units unknown ) (unknown) Result panel 1708 (unknown) (no date) (unknown) All (no value) (units unknown ) (unknown) Result panel 1709 (unknown) (no date) (unknown) All (no value) (units unknown ) (unknown) Result panel 1710 (unknown) (no date) (unknown) All (no value) (units unknown ) (unknown) Result panel 1711 (unknown) (no date) (unknown) All (no value) (units unknown ) (unknown) Result panel 1712 (unknown) (no date) (unknown) All (no value) (units unknown ) (unknown) Result panel 1713 (unknown) (no date) (unknown) All (no value) (units unknown ) (unknown) Result panel 1714 (unknown) (no date) (unknown) All (no value) (units unknown ) (unknown) Result panel 1715 (unknown) (no date) (unknown) All (no value) (units unknown ) (unknown) Result panel 1716 (unknown) (no date) (unknown) All (no value) (units unknown ) (unknown) Result panel 1717 (unknown) (no date) (unknown) All (no value) (units unknown ) (unknown) Result panel 1718 (unknown) (no date) (unknown) All (no value) (units unknown ) (unknown) Result panel 1719 (unknown) (no date) (unknown) All (no value) (units unknown ) (unknown) Result panel 1720 (unknown) (no date) (unknown) All (no value) (units unknown ) (unknown) Result panel 1721 (unknown) (no date) (unknown) All (no value) (units unknown ) (unknown) Result panel 1722 (unknown) (no date) (unknown) All (no value) (units unknown ) (unknown) Result panel 1723 (unknown) (no date) (unknown) All (no value) (units unknown ) (unknown) Result panel 1724 (unknown) (no date) (unknown) All (no value) (units unknown ) (unknown) Result panel 1725 (unknown) (no date) (unknown) All (no value) (units unknown ) (unknown) Result panel 1726 (unknown) (no date) (unknown) All (no value) (units unknown ) (unknown) Result panel 1727 (unknown) (no date) (unknown) All (no value) (units unknown ) (unknown) Result panel 1728 (unknown) (no date) (unknown) All (no value) (units unknown ) (unknown) Result panel 1729 (unknown) (no date) (unknown) All (no value) (units unknown ) (unknown) Result panel 1730 (unknown) (no date) (unknown) All (no value) (units unknown ) (unknown) Result panel 1731 (unknown) (no date) (unknown) All (no value) (units unknown ) (unknown) Result panel 1732 (unknown) (no date) (unknown) All (no value) (units unknown ) (unknown) Result panel 1733 (unknown) (no date) (unknown) All (no value) (units unknown ) (unknown) Result panel 1734 (unknown) (no date) (unknown) All (no value) (units unknown ) (unknown) Result panel 1735 (unknown) (no date) (unknown) All (no value) (units unknown ) (unknown) Result panel 1736 (unknown) (no date) (unknown) All (no value) (units unknown ) (unknown) Result panel 1737 (unknown) (no date) (unknown) All (no value) (units unknown ) (unknown) Result panel 1738 (unknown) (no date) (unknown) All (no value) (units unknown ) (unknown) Result panel 1739 (unknown) (no date) (unknown) All (no value) (units unknown ) (unknown) Result panel 1740 (unknown) (no date) (unknown) All (no value) (units unknown ) (unknown) Result panel 1741 (unknown) (no date) (unknown) All (no value) (units unknown ) (unknown) Result panel 1742 (unknown) (no date) (unknown) All (no value) (units unknown ) (unknown) Result panel 1743 (unknown) (no date) (unknown) All (no value) (units unknown ) (unknown) Result panel 1744 (unknown) (no date) (unknown) All (no value) (units unknown ) (unknown) Result panel 1745 (unknown) (no date) (unknown) All (no value) (units unknown ) (unknown) Result panel 1746 (unknown) (no date) (unknown) All (no value) (units unknown ) (unknown) Result panel 1747 (unknown) (no date) (unknown) All (no value) (units unknown ) (unknown) Result panel 1748 (unknown) (no date) (unknown) All (no value) (units unknown ) (unknown) Result panel 1749 (unknown) (no date) (unknown) All (no value) (units unknown ) (unknown) Result panel 1750 (unknown) (no date) (unknown) All (no value) (units unknown ) (unknown) Result panel 1751 (unknown) (no date) (unknown) All (no value) (units unknown ) (unknown) Result panel 1752 (unknown) (no date) (unknown) All (no value) (units unknown ) (unknown) Result panel 1753 (unknown) (no date) (unknown) All (no value) (units unknown ) (unknown) Result panel 1754 (unknown) (no date) (unknown) All (no value) (units unknown ) (unknown) Result panel 1755 (unknown) (no date) (unknown) All (no value) (units unknown ) (unknown) Result panel 1756 (unknown) (no date) (unknown) All (no value) (units unknown ) (unknown) Result panel 1757 (unknown) (no date) (unknown) All (no value) (units unknown ) (unknown) Result panel 1758 (unknown) (no date) (unknown) All (no value) (units unknown ) (unknown) Result panel 1759 (unknown) (no date) (unknown) All (no value) (units unknown ) (unknown) Result panel 1760 (unknown) (no date) (unknown) All (no value) (units unknown ) (unknown) Result panel 1761 (unknown) (no date) (unknown) All (no value) (units unknown ) (unknown) Result panel 1762 (unknown) (no date) (unknown) All (no value) (units unknown ) (unknown) Result panel 1763 (unknown) (no date) (unknown) All (no value) (units unknown ) (unknown) Result panel 1764 (unknown) (no date) (unknown) All (no value) (units unknown ) (unknown) Result panel 1765 (unknown) (no date) (unknown) All (no value) (units unknown ) (unknown) Result panel 1766 (unknown) (no date) (unknown) All (no value) (units unknown ) (unknown) Result panel 1767 (unknown) (no date) (unknown) All (no value) (units unknown ) (unknown) Result panel 1768 (unknown) (no date) (unknown) All (no value) (units unknown ) (unknown) Result panel 1769 (unknown) (no date) (unknown) All (no value) (units unknown ) (unknown) Result panel 1770 (unknown) (no date) (unknown) All (no value) (units unknown ) (unknown) Result panel 1771 (unknown) (no date) (unknown) All (no value) (units unknown ) (unknown) Result panel 1772 (unknown) (no date) (unknown) All (no value) (units unknown ) (unknown) Result panel 1773 (unknown) (no date) (unknown) All (no value) (units unknown ) (unknown) Result panel 1774 (unknown) (no date) (unknown) All (no value) (units unknown ) (unknown) Result panel 1775 (unknown) (no date) (unknown) All (no value) (units unknown ) (unknown) Result panel 1776 (unknown) (no date) (unknown) All (no value) (units unknown ) (unknown) Result panel 1777 (unknown) (no date) (unknown) All (no value) (units unknown ) (unknown) Result panel 1778 (unknown) (no date) (unknown) All (no value) (units unknown ) (unknown) Result panel 1779 (unknown) (no date) (unknown) All (no value) (units unknown ) (unknown) Result panel 1780 (unknown) (no date) (unknown) All (no value) (units unknown ) (unknown) Result panel 1781 (unknown) (no date) (unknown) All (no value) (units unknown ) (unknown) Result panel 1782 (unknown) (no date) (unknown) All (no value) (units unknown ) (unknown) Result panel 1783 (unknown) (no date) (unknown) All (no value) (units unknown ) (unknown) Result panel 1784 (unknown) (no date) (unknown) All (no value) (units unknown ) (unknown) Result panel 1785 (unknown) (no date) (unknown) All (no value) (units unknown ) (unknown) Result panel 1786 (unknown) (no date) (unknown) All (no value) (units unknown ) (unknown) Result panel 1787 (unknown) (no date) (unknown) All (no value) (units unknown ) (unknown) Result panel 1788 (unknown) (no date) (unknown) All (no value) (units unknown ) (unknown) Result panel 1789 (unknown) (no date) (unknown) All (no value) (units unknown ) (unknown) Result panel 1790 (unknown) (no date) (unknown) All (no value) (units unknown ) (unknown) Result panel 1791 (unknown) (no date) (unknown) All (no value) (units unknown ) (unknown) Result panel 1792 (unknown) (no date) (unknown) All (no value) (units unknown ) (unknown) Result panel 1793 (unknown) (no date) (unknown) All (no value) (units unknown ) (unknown) Result panel 1794 (unknown) (no date) (unknown) All (no value) (units unknown ) (unknown) Result panel 1795 (unknown) (no date) (unknown) All (no value) (units unknown ) (unknown) Result panel 1796 (unknown) (no date) (unknown) All (no value) (units unknown ) (unknown) Result panel 1797 (unknown) (no date) (unknown) All (no value) (units unknown ) (unknown) Result panel 1798 (unknown) (no date) (unknown) All (no value) (units unknown ) (unknown) Result panel 1799 (unknown) (no date) (unknown) All (no value) (units unknown ) (unknown) Result panel 1800 (unknown) (no date) (unknown) All (no value) (units unknown ) (unknown) Result panel 1801 (unknown) (no date) (unknown) All (no value) (units unknown ) (unknown) Result panel 1802 (unknown) (no date) (unknown) All (no value) (units unknown ) (unknown) Result panel 1803 (unknown) (no date) (unknown) All (no value) (units unknown ) (unknown) Result panel 1804 (unknown) (no date) (unknown) All (no value) (units unknown ) (unknown) Result panel 1805 (unknown) (no date) (unknown) All (no value) (units unknown ) (unknown) Result panel 1806 (unknown) (no date) (unknown) All (no value) (units unknown ) (unknown) Result panel 1807 (unknown) (no date) (unknown) All (no value) (units unknown ) (unknown) Result panel 1808 (unknown) (no date) (unknown) All (no value) (units unknown ) (unknown) Result panel 1809 (unknown) (no date) (unknown) All (no value) (units unknown ) (unknown) Result panel 1810 (unknown) (no date) (unknown) All (no value) (units unknown ) (unknown) Result panel 1811 (unknown) (no date) (unknown) All (no value) (units unknown ) (unknown) Result panel 1812 (unknown) (no date) (unknown) All (no value) (units unknown ) (unknown) Result panel 1813 (unknown) (no date) (unknown) All (no value) (units unknown ) (unknown) Result panel 1814 (unknown) (no date) (unknown) All (no value) (units unknown ) (unknown) Result panel 1815 (unknown) (no date) (unknown) All (no value) (units unknown ) (unknown) Result panel 1816 (unknown) (no date) (unknown) All (no value) (units unknown ) (unknown) Result panel 1817 (unknown) (no date) (unknown) All (no value) (units unknown ) (unknown) Result panel 1818 (unknown) (no date) (unknown) All (no value) (units unknown ) (unknown) Result panel 1819 (unknown) (no date) (unknown) All (no value) (units unknown ) (unknown) Result panel 1820 (unknown) (no date) (unknown) All (no value) (units unknown ) (unknown) Result panel 1821 (unknown) (no date) (unknown) All (no value) (units unknown ) (unknown) Result panel 1822 (unknown) (no date) (unknown) All (no value) (units unknown ) (unknown) Result panel 1823 (unknown) (no date) (unknown) All (no value) (units unknown ) (unknown) Result panel 1824 (unknown) (no date) (unknown) All (no value) (units unknown ) (unknown) Result panel 1825 (unknown) (no date) (unknown) All (no value) (units unknown ) (unknown) Result panel 1826 (unknown) (no date) (unknown) All (no value) (units unknown ) (unknown) Result panel 1827 (unknown) (no date) (unknown) All (no value) (units unknown ) (unknown) Result panel 1828 (unknown) (no date) (unknown) All (no value) (units unknown ) (unknown) Result panel 1829 (unknown) (no date) (unknown) All (no value) (units unknown ) (unknown) Result panel 1830 (unknown) (no date) (unknown) All (no value) (units unknown ) (unknown) Result panel 1831 (unknown) (no date) (unknown) All (no value) (units unknown ) (unknown) Result panel 1832 (unknown) (no date) (unknown) All (no value) (units unknown ) (unknown) Result panel 1833 (unknown) (no date) (unknown) All (no value) (units unknown ) (unknown) Result panel 1834 (unknown) (no date) (unknown) All (no value) (units unknown ) (unknown) Result panel 1835 (unknown) (no date) (unknown) All (no value) (units unknown ) (unknown) Result panel 1836 (unknown) (no date) (unknown) All (no value) (units unknown ) (unknown) Result panel 1837 (unknown) (no date) (unknown) All (no value) (units unknown ) (unknown) Result panel 1838 (unknown) (no date) (unknown) All (no value) (units unknown ) (unknown) Result panel 1839 (unknown) (no date) (unknown) All (no value) (units unknown ) (unknown) Result panel 1840 (unknown) (no date) (unknown) All (no value) (units unknown ) (unknown) Result panel 1841 (unknown) (no date) (unknown) All (no value) (units unknown ) (unknown) Result panel 1842 (unknown) (no date) (unknown) All (no value) (units unknown ) (unknown) Result panel 1843 (unknown) (no date) (unknown) All (no value) (units unknown ) (unknown) Result panel 1844 (unknown) (no date) (unknown) All (no value) (units unknown ) (unknown) Result panel 1845 (unknown) (no date) (unknown) All (no value) (units unknown ) (unknown) Result panel 1846 (unknown) (no date) (unknown) All (no value) (units unknown ) (unknown) Result panel 1847 (unknown) (no date) (unknown) All (no value) (units unknown ) (unknown) Result panel 1848 (unknown) (no date) (unknown) All (no value) (units unknown ) (unknown) Result panel 1849 (unknown) (no date) (unknown) All (no value) (units unknown ) (unknown) Result panel 1850 (unknown) (no date) (unknown) All (no value) (units unknown ) (unknown) Result panel 1851 (unknown) (no date) (unknown) All (no value) (units unknown ) (unknown) Result panel 1852 (unknown) (no date) (unknown) All (no value) (units unknown ) (unknown) Result panel 1853 (unknown) (no date) (unknown) All (no value) (units unknown ) (unknown) Result panel 1854 (unknown) (no date) (unknown) All (no value) (units unknown ) (unknown) Result panel 1855 (unknown) (no date) (unknown) All (no value) (units unknown ) (unknown) Result panel 1856 (unknown) (no date) (unknown) All (no value) (units unknown ) (unknown) Result panel 1857 (unknown) (no date) (unknown) All (no value) (units unknown ) (unknown) Result panel 1858 (unknown) (no date) (unknown) All (no value) (units unknown ) (unknown) Result panel 1859 (unknown) (no date) (unknown) All (no value) (units unknown ) (unknown) Result panel 1860 (unknown) (no date) (unknown) All (no value) (units unknown ) (unknown) Result panel 1861 (unknown) (no date) (unknown) All (no value) (units unknown ) (unknown) Result panel 1862 (unknown) (no date) (unknown) All (no value) (units unknown ) (unknown) Result panel 1863 (unknown) (no date) (unknown) All (no value) (units unknown ) (unknown) Result panel 1864 (unknown) (no date) (unknown) All (no value) (units unknown ) (unknown) Result panel 1865 (unknown) (no date) (unknown) All (no value) (units unknown ) (unknown) Result panel 1866 (unknown) (no date) (unknown) All (no value) (units unknown ) (unknown) Result panel 1867 (unknown) (no date) (unknown) All (no value) (units unknown ) (unknown) Result panel 1868 (unknown) (no date) (unknown) All (no value) (units unknown ) (unknown) Result panel 1869 (unknown) (no date) (unknown) All (no value) (units unknown ) (unknown) Result panel 1870 (unknown) (no date) (unknown) All (no value) (units unknown ) (unknown) Result panel 1871 (unknown) (no date) (unknown) All (no value) (units unknown ) (unknown) Result panel 1872 (unknown) (no date) (unknown) All (no value) (units unknown ) (unknown) Result panel 1873 (unknown) (no date) (unknown) All (no value) (units unknown ) (unknown) Result panel 1874 (unknown) (no date) (unknown) All (no value) (units unknown ) (unknown) Result panel 1875 (unknown) (no date) (unknown) All (no value) (units unknown ) (unknown) Result panel 1876 (unknown) (no date) (unknown) All (no value) (units unknown ) (unknown) Result panel 1877 (unknown) (no date) (unknown) All (no value) (units unknown ) (unknown) Result panel 1878 (unknown) (no date) (unknown) All (no value) (units unknown ) (unknown) Result panel 1879 (unknown) (no date) (unknown) All (no value) (units unknown ) (unknown) Result panel 1880 (unknown) (no date) (unknown) All (no value) (units unknown ) (unknown) Result panel 1881 (unknown) (no date) (unknown) All (no value) (units unknown ) (unknown) Result panel 1882 (unknown) (no date) (unknown) All (no value) (units unknown ) (unknown) Result panel 1883 (unknown) (no date) (unknown) All (no value) (units unknown ) (unknown) Result panel 1884 (unknown) (no date) (unknown) All (no value) (units unknown ) (unknown) Result panel 1885 (unknown) (no date) (unknown) All (no value) (units unknown ) (unknown) Result panel 1886 (unknown) (no date) (unknown) All (no value) (units unknown ) (unknown) Result panel 1887 (unknown) (no date) (unknown) All (no value) (units unknown ) (unknown) Result panel 1888 (unknown) (no date) (unknown) All (no value) (units unknown ) (unknown) Result panel 1889 (unknown) (no date) (unknown) All (no value) (units unknown ) (unknown) Result panel 1890 (unknown) (no date) (unknown) All (no value) (units unknown ) (unknown) Result panel 1891 (unknown) (no date) (unknown) All (no value) (units unknown ) (unknown) Result panel 1892 (unknown) (no date) (unknown) All (no value) (units unknown ) (unknown) Result panel 1893 (unknown) (no date) (unknown) All (no value) (units unknown ) (unknown) Result panel 1894 (unknown) (no date) (unknown) All (no value) (units unknown ) (unknown) Result panel 1895 (unknown) (no date) (unknown) All (no value) (units unknown ) (unknown) Result panel 1896 (unknown) (no date) (unknown) All (no value) (units unknown ) (unknown) Result panel 1897 (unknown) (no date) (unknown) All (no value) (units unknown ) (unknown) Result panel 1898 (unknown) (no date) (unknown) All (no value) (units unknown ) (unknown) Result panel 1899 (unknown) (no date) (unknown) All (no value) (units unknown ) (unknown) Result panel 1900 (unknown) (no date) (unknown) All (no value) (units unknown ) (unknown) Result panel 1901 (unknown) (no date) (unknown) All (no value) (units unknown ) (unknown) Result panel 1902 (unknown) (no date) (unknown) All (no value) (units unknown ) (unknown) Result panel 1903 (unknown) (no date) (unknown) All (no value) (units unknown ) (unknown) Result panel 1904 (unknown) (no date) (unknown) All (no value) (units unknown ) (unknown) Result panel 1905 (unknown) (no date) (unknown) All (no value) (units unknown ) (unknown) Result panel 1906 (unknown) (no date) (unknown) All (no value) (units unknown ) (unknown) Result panel 1907 (unknown) (no date) (unknown) All (no value) (units unknown ) (unknown) Result panel 1908 (unknown) (no date) (unknown) All (no value) (units unknown ) (unknown) Result panel 1909 (unknown) (no date) (unknown) All (no value) (units unknown ) (unknown) Result panel 1910 (unknown) (no date) (unknown) All (no value) (units unknown ) (unknown) Result panel 1911 (unknown) (no date) (unknown) All (no value) (units unknown ) (unknown) Result panel 1912 (unknown) (no date) (unknown) All (no value) (units unknown ) (unknown) Result panel 1913 (unknown) (no date) (unknown) All (no value) (units unknown ) (unknown) Result panel 1914 (unknown) (no date) (unknown) All (no value) (units unknown ) (unknown) Result panel 1915 (unknown) (no date) (unknown) All (no value) (units unknown ) (unknown) Result panel 1916 (unknown) (no date) (unknown) All (no value) (units unknown ) (unknown) Result panel 1917 (unknown) (no date) (unknown) All (no value) (units unknown ) (unknown) Result panel 1918 (unknown) (no date) (unknown) All (no value) (units unknown ) (unknown) Result panel 1919 (unknown) (no date) (unknown) All (no value) (units unknown ) (unknown) Result panel 1920 (unknown) (no date) (unknown) All (no value) (units unknown ) (unknown) Result panel 1921 (unknown) (no date) (unknown) All (no value) (units unknown ) (unknown) Result panel 1922 (unknown) (no date) (unknown) All (no value) (units unknown ) (unknown) Result panel 1923 (unknown) (no date) (unknown) All (no value) (units unknown ) (unknown) Result panel 1924 (unknown) (no date) (unknown) All (no value) (units unknown ) (unknown) Result panel 1925 (unknown) (no date) (unknown) All (no value) (units unknown ) (unknown) Result panel 1926 (unknown) (no date) (unknown) All (no value) (units unknown ) (unknown) Result panel 1927 (unknown) (no date) (unknown) All (no value) (units unknown ) (unknown) Result panel 1928 (unknown) (no date) (unknown) All (no value) (units unknown ) (unknown) Result panel 1929 (unknown) (no date) (unknown) All (no value) (units unknown ) (unknown) Result panel 1930 (unknown) (no date) (unknown) All (no value) (units unknown ) (unknown) Result panel 193 (unknown) (no date) (unknown) All (no value) (units unknown ) (unknown) Result panel 1932 (unknown) (no date) (unknown) All (no value) (units unknown ) (unknown) Result panel 1933 (unknown) (no date) (unknown) All (no value) (units unknown ) (unknown) Result panel 1934 (unknown) (no date) (unknown) All (no value) (units unknown ) (unknown) Result panel 1935 (unknown) (no date) (unknown) All (no value) (units unknown ) (unknown) Result panel 1936 (unknown) (no date) (unknown) All (no value) (units unknown ) (unknown) Result panel 1937 (unknown) (no date) (unknown) All (no value) (units unknown ) (unknown) Result panel 1938 (unknown) (no date) (unknown) All (no value) (units unknown ) (unknown) Result panel 1939 (unknown) (no date) (unknown) All (no value) (units unknown ) (unknown) Result panel 1940 (unknown) (no date) (unknown) All (no value) (units unknown ) (unknown) Result panel 194 (unknown) (no date) (unknown) All (no value) (units unknown ) (unknown) Result panel 1942 (unknown) (no date) (unknown) All (no value) (units unknown ) (unknown) Result panel 1943 (unknown) (no date) (unknown) All (no value) (units unknown ) (unknown) Result panel 1944 (unknown) (no date) (unknown) All (no value) (units unknown ) (unknown) Result panel 1945 (unknown) (no date) (unknown) All (no value) (units unknown ) (unknown) Result panel 1946 (unknown) (no date) (unknown) All (no value) (units unknown ) (unknown) Result panel 1947 (unknown) (no date) (unknown) All (no value) (units unknown ) (unknown) Result panel 194 (unknown) (no date) (unknown) All (no value) (units unknown ) (unknown) Result panel 194 (unknown) (no date) (unknown) All (no value) (units unknown ) (unknown) Result panel 1950 (unknown) (no date) (unknown) All (no value) (units unknown ) (unknown) Result panel 195 (unknown) (no date) (unknown) All (no value) (units unknown ) (unknown) Result panel 195 (unknown) (no date) (unknown) All (no value) (units unknown ) (unknown) Result panel 1952 (unknown) (no date) (unknown) All (no value) (units unknown ) (unknown) Result panel 1953 (unknown) (no date) (unknown) All (no value) (units unknown ) (unknown) Result panel 1954 (unknown) (no date) (unknown) All (no value) (units unknown ) (unknown) Result panel 1955 (unknown) (no date) (unknown) All (no value) (units unknown ) (unknown) Result panel 1956 (unknown) (no date) (unknown) All (no value) (units unknown ) (unknown) Result panel 195 (unknown) (no date) (unknown) All (no value) (units unknown ) (unknown) Result panel 195 (unknown) (no date) (unknown) All (no value) (units unknown ) (unknown) Result panel 1959 (unknown) (no date) (unknown) All (no value) (units unknown ) (unknown) Result panel 196 (unknown) (no date) (unknown) All (no value) (units unknown ) (unknown) Result panel 196 (unknown) (no date) (unknown) All (no value) (units unknown ) (unknown) Result panel 1963 (unknown) (no date) (unknown) All (no value) (units unknown ) (unknown) Result panel 1964 (unknown) (no date) (unknown) All (no value) (units unknown ) (unknown) Result panel 1965 (unknown) (no date) (unknown) All (no value) (units unknown ) (unknown) Result panel 1966 (unknown) (no date) (unknown) All (no value) (units unknown ) (unknown) Result panel 1967 (unknown) (no date) (unknown) All (no value) (units unknown ) (unknown) Result panel 1967 (unknown) (no date) (unknown) All (no value) (units unknown ) (unknown) Result panel 1968 (unknown) (no date) (unknown) All (no value) (units unknown ) (unknown) Result panel 1969 (unknown) (no date) (unknown) All (no value) (units unknown ) (unknown) Result panel 1970 (unknown) (no date) (unknown) All (no value) (units unknown ) (unknown) Result panel 1971 (unknown) (no date) (unknown) All (no value) (units unknown ) (unknown) Result panel 1972 (unknown) (no date) (unknown) All (no value) (units unknown ) (unknown) Result panel 1974 (unknown) (no date) (unknown) All (no value) (units unknown ) (unknown) Result panel 1974 (unknown) (no date) (unknown) All (no value) (units unknown ) (unknown) Result panel 1975 (unknown) (no date) (unknown) All (no value) (units unknown ) (unknown) Result panel 1976 (unknown) (no date) (unknown) All (no value) (units unknown ) (unknown) Result panel 1977 (unknown) (no date) (unknown) All (no value) (units unknown ) (unknown) Result panel 1978 (unknown) (no date) (unknown) All (no value) (units unknown ) (unknown) Result panel 1979 (unknown) (no date) (unknown) All (no value) (units unknown ) (unknown) Result panel 1980 (unknown) (no date) (unknown) All (no value) (units unknown ) (unknown) Result panel 1981 (unknown) (no date) (unknown) All (no value) (units unknown ) (unknown) Result panel 1982 (unknown) (no date) (unknown) All (no value) (units unknown ) (unknown) Result panel 1983 (unknown) (no date) (unknown) All (no value) (units unknown ) (unknown) Result panel 1984 (unknown) (no date) (unknown) All (no value) (units unknown ) (unknown) Result panel 1985 (unknown) (no date) (unknown) All (no value) (units unknown ) (unknown) Result panel 1986 (unknown) (no date) (unknown) All (no value) (units unknown ) (unknown) Result panel 1987 (unknown) (no date) (unknown) All (no value) (units unknown ) (unknown) Result panel 1988 (unknown) (no date) (unknown) All (no value) (units unknown ) (unknown) Result panel 1989 (unknown) (no date) (unknown) All (no value) (units unknown ) (unknown) Result panel 1990 (unknown) (no date) (unknown) All (no value) (units unknown ) (unknown) Result panel 1991 (unknown) (no date) (unknown) All (no value) (units unknown ) (unknown) Result panel 1992 (unknown) (no date) (unknown) All (no value) (units unknown ) (unknown) Result panel 1993 (unknown) (no date) (unknown) All (no value) (units unknown ) (unknown) Result panel 1994 (unknown) (no date) (unknown) All (no value) (units unknown ) (unknown) Result panel 1995 (unknown) (no date) (unknown) All (no value) (units unknown ) (unknown) Result panel 1996 (unknown) (no date) (unknown) All (no value) (units unknown ) (unknown) Result panel 1997 (unknown) (no date) (unknown) All (no value) (units unknown ) (unknown) Result panel 1998 (unknown) (no date) (unknown) All (no value) (units unknown ) (unknown) Result panel 1999 (unknown) (no date) (unknown) All (no value) (units unknown ) (unknown) Result panel 2000 (unknown) (no date) (unknown) All (no value) (units unknown ) (unknown) Result panel 2001 (unknown) (no date) (unknown) All (no value) (units unknown ) (unknown) Result panel 2003 (unknown) (no date) (unknown) All (no value) (units unknown ) (unknown) Result panel 2004 (unknown) (no date) (unknown) All (no value) (units unknown ) (unknown) Result panel 2005 (unknown) (no date) (unknown) All (no value) (units unknown ) (unknown) Result panel 2006 (unknown) (no date) (unknown) All (no value) (units unknown ) (unknown) Result panel 2007 (unknown) (no date) (unknown) All (no value) (units unknown ) (unknown) Result panel 2008 (unknown) (no date) (unknown) All (no value) (units unknown ) (unknown) Result panel 2009 (unknown) (no date) (unknown) All (no value) (units unknown ) (unknown) Result panel 2010 (unknown) (no date) (unknown) All (no value) (units unknown ) (unknown) Result panel 2011 (unknown) (no date) (unknown) All (no value) (units unknown ) (unknown) Result panel 2012 (unknown) (no date) (unknown) All (no value) (units unknown ) (unknown) Result panel 2013 (unknown) (no date) (unknown) All (no value) (units unknown ) (unknown) Result panel 2014 (unknown) (no date) (unknown) All (no value) (units unknown ) (unknown) Result panel 2015 (unknown) (no date) (unknown) All (no value) (units unknown ) (unknown) Result panel 2016 (unknown) (no date) (unknown) All (no value) (units unknown ) (unknown) Result panel 2017 (unknown) (no date) (unknown) All (no value) (units unknown ) (unknown) Result panel 2018 (unknown) (no date) (unknown) All (no value) (units unknown ) (unknown) Result panel 2019 (unknown) (no date) (unknown) All (no value) (units unknown ) (unknown) Result panel 2019 (unknown) (no date) (unknown) All (no value) (units unknown ) (unknown) Result panel 2020 (unknown) (no date) (unknown) All (no value) (units unknown ) (unknown) Result panel 2021 (unknown) (no date) (unknown) All (no value) (units unknown ) (unknown) Result panel 2022 (unknown) (no date) (unknown) All (no value) (units unknown ) (unknown) Result panel 2023 (unknown) (no date) (unknown) All (no value) (units unknown ) (unknown) Result panel 2024 (unknown) (no date) (unknown) All (no value) (units unknown ) (unknown) Result panel 2025 (unknown) (no date) (unknown) All (no value) (units unknown ) (unknown) Result panel 2026 (unknown) (no date) (unknown) All (no value) (units unknown ) (unknown) Result panel 2027 (unknown) (no date) (unknown) All (no value) (units unknown ) (unknown) Result panel 2028 (unknown) (no date) (unknown) All (no value) (units unknown ) (unknown) Result panel 2029 (unknown) (no date) (unknown) All (no value) (units unknown ) (unknown) Result panel 2031 (unknown) (no date) (unknown) All (no value) (units unknown ) (unknown) Result panel 2032 (unknown) (no date) (unknown) All (no value) (units unknown ) (unknown) Result panel 2033 (unknown) (no date) (unknown) All (no value) (units unknown ) (unknown) Result panel 2034 (unknown) (no date) (unknown) All (no value) (units unknown ) (unknown) Result panel 2035 (unknown) (no date) (unknown) All (no value) (units unknown ) (unknown) Result panel 2036 (unknown) (no date) (unknown) All (no value) (units unknown ) (unknown) Result panel 2037 (unknown) (no date) (unknown) All (no value) (units unknown ) (unknown) Result panel 2038 (unknown) (no date) (unknown) All (no value) (units unknown ) (unknown) Result panel 2039 (unknown) (no date) (unknown) All (no value) (units unknown ) (unknown) Result panel 2040 (unknown) (no date) (unknown) All (no value) (units unknown ) (unknown) Result panel 2041 (unknown) (no date) (unknown) All (no value) (units unknown ) (unknown) Result panel 2042 (unknown) (no date) (unknown) All (no value) (units unknown ) (unknown) Result panel 2043 (unknown) (no date) (unknown) All (no value) (units unknown ) (unknown) Result panel 2044 (unknown) (no date) (unknown) All (no value) (units unknown ) (unknown) Result panel 2045 (unknown) (no date) (unknown) All (no value) (units unknown ) (unknown) Result panel 2046 (unknown) (no date) (unknown) All (no value) (units unknown ) (unknown) Result panel 2047 (unknown) (no date) (unknown) All (no value) (units unknown ) (unknown) Result panel 2048 (unknown) (no date) (unknown) All (no value) (units unknown ) (unknown) Result panel 2048 (unknown) (no date) (unknown) All (no value) (units unknown ) (unknown) Result panel 2049 (unknown) (no date) (unknown) All (no value) (units unknown ) (unknown) Result panel 2050 (unknown) (no date) (unknown) All (no value) (units unknown ) (unknown) Result panel 2 (unknown) (no date) (unknown) All (no value) (units unknown ) (unknown) Result panel 3 (unknown) (no date) (unknown) All (no value) (units unknown ) (unknown) Result panel 4 (unknown) (no date) (unknown) All (no value) (units unknown ) (unknown) Result panel 5 (unknown) (no date) (unknown) All (no value) (units unknown ) (unknown) Result panel 2056 (unknown) (no date) (unknown) All (no value) (units unknown ) (unknown) Result panel 2057 (unknown) (no date) (unknown) All (no value) (units unknown ) (unknown) Result panel 2058 (unknown) (no date) (unknown) All (no value) (units unknown ) (unknown) Result panel 2059 (unknown) (no date) (unknown) All (no value) (units unknown ) (unknown) Result panel 206 (unknown) (no date) (unknown) All (no value) (units unknown ) (unknown) Result panel 206 (unknown) (no date) (unknown) All (no value) (units unknown ) (unknown) Result panel 2062 (unknown) (no date) (unknown) All (no value) (units unknown ) (unknown) Result panel 2063 (unknown) (no date) (unknown) All (no value) (units unknown ) (unknown) Result panel 2064 (unknown) (no date) (unknown) All (no value) (units unknown ) (unknown) Result panel 2065 (unknown) (no date) (unknown) All (no value) (units unknown ) (unknown) Result panel 2066 (unknown) (no date) (unknown) All (no value) (units unknown ) (unknown) Result panel 2067 (unknown) (no date) (unknown) All (no value) (units unknown ) (unknown) Result panel 2068 (unknown) (no date) (unknown) All (no value) (units unknown ) (unknown) Result panel 2069 (unknown) (no date) (unknown) All (no value) (units unknown ) (unknown) Result panel 2070 (unknown) (no date) (unknown) All (no value) (units unknown ) (unknown) Result panel 2071 (unknown) (no date) (unknown) All (no value) (units unknown ) (unknown) Result panel 2072 (unknown) (no date) (unknown) All (no value) (units unknown ) (unknown) Result panel 2073 (unknown) (no date) (unknown) All (no value) (units unknown ) (unknown) Result panel 2074 (unknown) (no date) (unknown) All (no value) (units unknown ) (unknown) Result panel 2075 (unknown) (no date) (unknown) All (no value) (units unknown ) (unknown) Result panel 2076 (unknown) (no date) (unknown) All (no value) (units unknown ) (unknown) Result panel 2077 (unknown) (no date) (unknown) All (no value) (units unknown ) (unknown) Result panel 2078 (unknown) (no date) (unknown) All (no value) (units unknown ) (unknown) Result panel 2079 (unknown) (no date) (unknown) All (no value) (units unknown ) (unknown) Result panel 2080 (unknown) (no date) (unknown) All (no value) (units unknown ) (unknown) Result panel 2081 (unknown) (no date) (unknown) All (no value) (units unknown ) (unknown) Result panel 2082 (unknown) (no date) (unknown) All (no value) (units unknown ) (unknown) Result panel 2083 (unknown) (no date) (unknown) All (no value) (units unknown ) (unknown) Result panel 2084 (unknown) (no date) (unknown) All (no value) (units unknown ) (unknown) Result panel 2085 (unknown) (no date) (unknown) All (no value) (units unknown ) (unknown) Result panel 6 (unknown) (no date) (unknown) All (no value) (units unknown ) (unknown) Result panel 7 (unknown) (no date) (unknown) All (no value) (units unknown ) (unknown) Result panel 8 (unknown) (no date) (unknown) All (no value) (units unknown ) (unknown) Result panel 2088 (unknown) (no date) (unknown) All (no value) (units unknown ) (unknown) Result panel 2089 (unknown) (no date) (unknown) All (no value) (units unknown ) (unknown) Result panel 209 (unknown) (no date) (unknown) All (no value) (units unknown ) (unknown) Result panel 2092 (unknown) (no date) (unknown) All (no value) (units unknown ) (unknown) Result panel 2093 (unknown) (no date) (unknown) All (no value) (units unknown ) (unknown) Result panel 2094 (unknown) (no date) (unknown) All (no value) (units unknown ) (unknown) Result panel 2095 (unknown) (no date) (unknown) All (no value) (units unknown ) (unknown) Result panel 2096 (unknown) (no date) (unknown) All (no value) (units unknown ) (unknown) Result panel 2097 (unknown) (no date) (unknown) All (no value) (units unknown ) (unknown) Result panel 2098 (unknown) (no date) (unknown) All (no value) (units unknown ) (unknown) Result panel 2099 (unknown) (no date) (unknown) All (no value) (units unknown ) (unknown) Result panel 2100 (unknown) (no date) (unknown) All (no value) (units unknown ) (unknown) Result panel 2101 (unknown) (no date) (unknown) All (no value) (units unknown ) (unknown) Result panel 2102 (unknown) (no date) (unknown) All (no value) (units unknown ) (unknown) Result panel 2103 (unknown) (no date) (unknown) All (no value) (units unknown ) (unknown) Result panel 2104 (unknown) (no date) (unknown) All (no value) (units unknown ) (unknown) Result panel 2105 (unknown) (no date) (unknown) All (no value) (units unknown ) (unknown) Result panel 2106 (unknown) (no date) (unknown) All (no value) (units unknown ) (unknown) Result panel 2107 (unknown) (no date) (unknown) All (no value) (units unknown ) (unknown) Result panel 2108 (unknown) (no date) (unknown) All (no value) (units unknown ) (unknown) Result panel 2109 (unknown) (no date) (unknown) All (no value) (units unknown ) (unknown) Result panel 2110 (unknown) (no date) (unknown) All (no value) (units unknown ) (unknown) Result panel 2111 (unknown) (no date) (unknown) All (no value) (units unknown ) (unknown) Result panel 2112 (unknown) (no date) (unknown) All (no value) (units unknown ) (unknown) Result panel 2113 (unknown) (no date) (unknown) All (no value) (units unknown ) (unknown) Result panel 2114 (unknown) (no date) (unknown) All (no value) (units unknown ) (unknown) Result panel 2115 (unknown) (no date) (unknown) All (no value) (units unknown ) (unknown) Result panel 2116 (unknown) (no date) (unknown) All (no value) (units unknown ) (unknown) Result panel 2117 (unknown) (no date) (unknown) All (no value) (units unknown ) (unknown) Result panel 2118 (unknown) (no date) (unknown) All (no value) (units unknown ) (unknown) Result panel 2119 (unknown) (no date) (unknown) All (no value) (units unknown ) (unknown) Result panel 2120 (unknown) (no date) (unknown) All (no value) (units unknown ) (unknown) Result panel 2121 (unknown) (no date) (unknown) All (no value) (units unknown ) (unknown) Result panel 2122 (unknown) (no date) (unknown) All (no value) (units unknown ) (unknown) Result panel 2123 (unknown) (no date) (unknown) All (no value) (units unknown ) (unknown) Result panel 2124 (unknown) (no date) (unknown) All (no value) (units unknown ) (unknown) Result panel 2125 (unknown) (no date) (unknown) All (no value) (units unknown ) (unknown) Result panel 2126 (unknown) (no date) (unknown) All (no value) (units unknown ) (unknown) Result panel 2127 (unknown) (no date) (unknown) All (no value) (units unknown ) (unknown) Result panel 2128 (unknown) (no date) (unknown) All (no value) (units unknown ) (unknown) Result panel 2129 (unknown) (no date) (unknown) All (no value) (units unknown ) (unknown) Result panel 2130 (unknown) (no date) (unknown) All (no value) (units unknown ) (unknown) Result panel 2131 (unknown) (no date) (unknown) All (no value) (units unknown ) (unknown) Result panel 2132 (unknown) (no date) (unknown) All (no value) (units unknown ) (unknown) Result panel 2133 (unknown) (no date) (unknown) All (no value) (units unknown ) (unknown) Result panel 2134 (unknown) (no date) (unknown) All (no value) (units unknown ) (unknown) Result panel 2135 (unknown) (no date) (unknown) All (no value) (units unknown ) (unknown) Result panel 2136 (unknown) (no date) (unknown) All (no value) (units unknown ) (unknown) Result panel 2137 (unknown) (no date) (unknown) All (no value) (units unknown ) (unknown) Result panel 2138 (unknown) (no date) (unknown) All (no value) (units unknown ) (unknown) Result panel 2139 (unknown) (no date) (unknown) All (no value) (units unknown ) (unknown) Result panel 2140 (unknown) (no date) (unknown) All (no value) (units unknown ) (unknown) Result panel 2141 (unknown) (no date) (unknown) All (no value) (units unknown ) (unknown) Result panel 2142 (unknown) (no date) (unknown) All (no value) (units unknown ) (unknown) Result panel 2143 (unknown) (no date) (unknown) All (no value) (units unknown ) (unknown) Result panel 2144 (unknown) (no date) (unknown) All (no value) (units unknown ) (unknown) Result panel 2145 (unknown) (no date) (unknown) All (no value) (units unknown ) (unknown) Result panel 2146 (unknown) (no date) (unknown) All (no value) (units unknown ) (unknown) Result panel 2147 (unknown) (no date) (unknown) All (no value) (units unknown ) (unknown) Result panel 2148 (unknown) (no date) (unknown) All (no value) (units unknown ) (unknown) Result panel 2149 (unknown) (no date) (unknown) All (no value) (units unknown ) (unknown) Result panel 2150 (unknown) (no date) (unknown) All (no value) (units unknown ) (unknown) Result panel 2151 (unknown) (no date) (unknown) All (no value) (units unknown ) (unknown) Result panel 2152 (unknown) (no date) (unknown) All (no value) (units unknown ) (unknown) Result panel 2153 (unknown) (no date) (unknown) All (no value) (units unknown ) (unknown) Result panel 2154 (unknown) (no date) (unknown) All (no value) (units unknown ) (unknown) Result panel 2155 (unknown) (no date) (unknown) All (no value) (units unknown ) (unknown) Result panel 2156 (unknown) (no date) (unknown) All (no value) (units unknown ) (unknown) Result panel 2157 (unknown) (no date) (unknown) All (no value) (units unknown ) (unknown) Result panel 2158 (unknown) (no date) (unknown) All (no value) (units unknown ) (unknown) Result panel 2159 (unknown) (no date) (unknown) All (no value) (units unknown ) (unknown) Result panel 2160 (unknown) (no date) (unknown) All (no value) (units unknown ) (unknown) Result panel 2161 (unknown) (no date) (unknown) All (no value) (units unknown ) (unknown) Result panel 2162 (unknown) (no date) (unknown) All (no value) (units unknown ) (unknown) Result panel 2163 (unknown) (no date) (unknown) All (no value) (units unknown ) (unknown) Result panel 2164 (unknown) (no date) (unknown) All (no value) (units unknown ) (unknown) Result panel 2165 (unknown) (no date) (unknown) All (no value) (units unknown ) (unknown) Result panel 2166 (unknown) (no date) (unknown) All (no value) (units unknown ) (unknown) Result panel 2167 (unknown) (no date) (unknown) All (no value) (units unknown ) (unknown) Result panel 2168 (unknown) (no date) (unknown) All (no value) (units unknown ) (unknown) Result panel 2169 (unknown) (no date) (unknown) All (no value) (units unknown ) (unknown) Result panel 2170 (unknown) (no date) (unknown) All (no value) (units unknown ) (unknown) Result panel 2171 (unknown) (no date) (unknown) All (no value) (units unknown ) (unknown) Result panel 2172 (unknown) (no date) (unknown) All (no value) (units unknown ) (unknown) Result panel 2173 (unknown) (no date) (unknown) All (no value) (units unknown ) (unknown) Result panel 2174 (unknown) (no date) (unknown) All (no value) (units unknown ) (unknown) Result panel 2175 (unknown) (no date) (unknown) All (no value) (units unknown ) (unknown) Result panel 2176 (unknown) (no date) (unknown) All (no value) (units unknown ) (unknown) Result panel 2177 (unknown) (no date) (unknown) All (no value) (units unknown ) (unknown) Result panel 2178 (unknown) (no date) (unknown) All (no value) (units unknown ) (unknown) Result panel 2179 (unknown) (no date) (unknown) All (no value) (units unknown ) (unknown) Result panel 2180 (unknown) (no date) (unknown) All (no value) (units unknown ) (unknown) Result panel 2181 (unknown) (no date) (unknown) All (no value) (units unknown ) (unknown) Result panel 2182 (unknown) (no date) (unknown) All (no value) (units unknown ) (unknown) Result panel 2183 (unknown) (no date) (unknown) All (no value) (units unknown ) (unknown) Result panel 2184 (unknown) (no date) (unknown) All (no value) (units unknown ) (unknown) Result panel 2185 (unknown) (no date) (unknown) All (no value) (units unknown ) (unknown) Result panel 2186 (unknown) (no date) (unknown) All (no value) (units unknown ) (unknown) Result panel 2187 (unknown) (no date) (unknown) All (no value) (units unknown ) (unknown) Result panel 2188 (unknown) (no date) (unknown) All (no value) (units unknown ) (unknown) Result panel 2189 (unknown) (no date) (unknown) All (no value) (units unknown ) (unknown) Result panel 2190 (unknown) (no date) (unknown) All (no value) (units unknown ) (unknown) Result panel 2191 (unknown) (no date) (unknown) All (no value) (units unknown ) (unknown) Result panel 2192 (unknown) (no date) (unknown) All (no value) (units unknown ) (unknown) Result panel 2193 (unknown) (no date) (unknown) All (no value) (units unknown ) (unknown) Result panel 2194 (unknown) (no date) (unknown) All (no value) (units unknown ) (unknown) Result panel 2195 (unknown) (no date) (unknown) All (no value) (units unknown ) (unknown) Result panel 2196 (unknown) (no date) (unknown) All (no value) (units unknown ) (unknown) Result panel 2197 (unknown) (no date) (unknown) All (no value) (units unknown ) (unknown) Result panel 2198 (unknown) (no date) (unknown) All (no value) (units unknown ) (unknown) Result panel 2199 (unknown) (no date) (unknown) All (no value) (units unknown ) (unknown) Result panel 2200 (unknown) (no date) (unknown) All (no value) (units unknown ) (unknown) Result panel 2201 (unknown) (no date) (unknown) All (no value) (units unknown ) (unknown) Result panel 2202 (unknown) (no date) (unknown) All (no value) (units unknown ) (unknown) Result panel 2203 (unknown) (no date) (unknown) All (no value) (units unknown ) (unknown) Result panel 2204 (unknown) (no date) (unknown) All (no value) (units unknown ) (unknown) Result panel 2205 (unknown) (no date) (unknown) All (no value) (units unknown ) (unknown) Result panel 2206 (unknown) (no date) (unknown) All (no value) (units unknown ) (unknown) Result panel 2207 (unknown) (no date) (unknown) All (no value) (units unknown ) (unknown) Result panel 2208 (unknown) (no date) (unknown) All (no value) (units unknown ) (unknown) Result panel 2209 (unknown) (no date) (unknown) All (no value) (units unknown ) (unknown) Result panel 2210 (unknown) (no date) (unknown) All (no value) (units unknown ) (unknown) Result panel 2211 (unknown) (no date) (unknown) All (no value) (units unknown ) (unknown) Result panel 2212 (unknown) (no date) (unknown) All (no value) (units unknown ) (unknown) Result panel 2213 (unknown) (no date) (unknown) All (no value) (units unknown ) (unknown) Result panel 2214 (unknown) (no date) (unknown) All (no value) (units unknown ) (unknown) Result panel 2215 (unknown) (no date) (unknown) All (no value) (units unknown ) (unknown) Result panel 2216 (unknown) (no date) (unknown) All (no value) (units unknown ) (unknown) Result panel 2217 (unknown) (no date) (unknown) All (no value) (units unknown ) (unknown) Result panel 2218 (unknown) (no date) (unknown) All (no value) (units unknown ) (unknown) Result panel 2219 (unknown) (no date) (unknown) All (no value) (units unknown ) (unknown) Result panel 2220 (unknown) (no date) (unknown) All (no value) (units unknown ) (unknown) Result panel 2221 (unknown) (no date) (unknown) All (no value) (units unknown ) (unknown) Result panel 2222 (unknown) (no date) (unknown) All (no value) (units unknown ) (unknown) Result panel 2223 (unknown) (no date) (unknown) All (no value) (units unknown ) (unknown) Result panel 2224 (unknown) (no date) (unknown) All (no value) (units unknown ) (unknown) Result panel 2225 (unknown) (no date) (unknown) All (no value) (units unknown ) (unknown) Result panel 2226 (unknown) (no date) (unknown) All (no value) (units unknown ) (unknown) Result panel 2227 (unknown) (no date) (unknown) All (no value) (units unknown ) (unknown) Result panel 2228 (unknown) (no date) (unknown) All (no value) (units unknown ) (unknown) Result panel 2229 (unknown) (no date) (unknown) All (no value) (units unknown ) (unknown) Result panel 2230 (unknown) (no date) (unknown) All (no value) (units unknown ) (unknown) Result panel 2231 (unknown) (no date) (unknown) All (no value) (units unknown ) (unknown) Result panel 2232 (unknown) (no date) (unknown) All (no value) (units unknown ) (unknown) Result panel 2233 (unknown) (no date) (unknown) All (no value) (units unknown ) (unknown) Result panel 2234 (unknown) (no date) (unknown) All (no value) (units unknown ) (unknown) Result panel 2235 (unknown) (no date) (unknown) All (no value) (units unknown ) (unknown) Result panel 2236 (unknown) (no date) (unknown) All (no value) (units unknown ) (unknown) Result panel 2237 (unknown) (no date) (unknown) All (no value) (units unknown ) (unknown) Result panel 2238 (unknown) (no date) (unknown) All (no value) (units unknown ) (unknown) Result panel 2239 (unknown) (no date) (unknown) All (no value) (units unknown ) (unknown) Result panel 2240 (unknown) (no date) (unknown) All (no value) (units unknown ) (unknown) Result panel 2241 (unknown) (no date) (unknown) All (no value) (units unknown ) (unknown) Result panel 2242 (unknown) (no date) (unknown) All (no value) (units unknown ) (unknown) Result panel 2243 (unknown) (no date) (unknown) All (no value) (units unknown ) (unknown) Result panel 2244 (unknown) (no date) (unknown) All (no value) (units unknown ) (unknown) Result panel 2245 (unknown) (no date) (unknown) All (no value) (units unknown ) (unknown) Result panel 2246 (unknown) (no date) (unknown) All (no value) (units unknown ) (unknown) Result panel 2247 (unknown) (no date) (unknown) All (no value) (units unknown ) (unknown) Result panel 2248 (unknown) (no date) (unknown) All (no value) (units unknown ) (unknown) Result panel 2249 (unknown) (no date) (unknown) All (no value) (units unknown ) (unknown) Result panel 2250 (unknown) (no date) (unknown) All (no value) (units unknown ) (unknown) Result panel 2251 (unknown) (no date) (unknown) All (no value) (units unknown ) (unknown) Result panel 2252 (unknown) (no date) (unknown) All (no value) (units unknown ) (unknown) Result panel 2253 (unknown) (no date) (unknown) All (no value) (units unknown ) (unknown) Result panel 2254 (unknown) (no date) (unknown) All (no value) (units unknown ) (unknown) Result panel 2255 (unknown) (no date) (unknown) All (no value) (units unknown ) (unknown) Result panel 2256 (unknown) (no date) (unknown) All (no value) (units unknown ) (unknown) Result panel 2257 (unknown) (no date) (unknown) All (no value) (units unknown ) (unknown) Result panel 2258 (unknown) (no date) (unknown) All (no value) (units unknown ) (unknown) Result panel 2259 (unknown) (no date) (unknown) All (no value) (units unknown ) (unknown) Result panel 2260 (unknown) (no date) (unknown) All (no value) (units unknown ) (unknown) Result panel 2261 (unknown) (no date) (unknown) All (no value) (units unknown ) (unknown) Result panel 2262 (unknown) (no date) (unknown) All (no value) (units unknown ) (unknown) Result panel 2263 (unknown) (no date) (unknown) All (no value) (units unknown ) (unknown) Result panel 2264 (unknown) (no date) (unknown) All (no value) (units unknown ) (unknown) Result panel 2265 (unknown) (no date) (unknown) All (no value) (units unknown ) (unknown) Result panel 2266 (unknown) (no date) (unknown) All (no value) (units unknown ) (unknown) Result panel 2267 (unknown) (no date) (unknown) All (no value) (units unknown ) (unknown) Result panel 2268 (unknown) (no date) (unknown) All (no value) (units unknown ) (unknown) Result panel 2269 (unknown) (no date) (unknown) All (no value) (units unknown ) (unknown) Result panel 2270 (unknown) (no date) (unknown) All (no value) (units unknown ) (unknown) Result panel 2271 (unknown) (no date) (unknown) All (no value) (units unknown ) (unknown) Result panel 2272 (unknown) (no date) (unknown) All (no value) (units unknown ) (unknown) Result panel 2273 (unknown) (no date) (unknown) All (no value) (units unknown ) (unknown) Result panel 2274 (unknown) (no date) (unknown) All (no value) (units unknown ) (unknown) Result panel 2275 (unknown) (no date) (unknown) All (no value) (units unknown ) (unknown) Result panel 2276 (unknown) (no date) (unknown) All (no value) (units unknown ) (unknown) Result panel 2277 (unknown) (no date) (unknown) All (no value) (units unknown ) (unknown) Result panel 2278 (unknown) (no date) (unknown) All (no value) (units unknown ) (unknown) Result panel 2279 (unknown) (no date) (unknown) All (no value) (units unknown ) (unknown) Result panel 2280 (unknown) (no date) (unknown) All (no value) (units unknown ) (unknown) Result panel 2281 (unknown) (no date) (unknown) All (no value) (units unknown ) (unknown) Result panel 2282 (unknown) (no date) (unknown) All (no value) (units unknown ) (unknown) Result panel 2283 (unknown) (no date) (unknown) All (no value) (units unknown ) (unknown) Result panel 2284 (unknown) (no date) (unknown) All (no value) (units unknown ) (unknown) Result panel 2285 (unknown) (no date) (unknown) All (no value) (units unknown ) (unknown) Result panel 2286 (unknown) (no date) (unknown) All (no value) (units unknown ) (unknown) Result panel 2287 (unknown) (no date) (unknown) All (no value) (units unknown ) (unknown) Result panel 2288 (unknown) (no date) (unknown) All (no value) (units unknown ) (unknown) Result panel 2289 (unknown) (no date) (unknown) All (no value) (units unknown ) (unknown) Result panel 2290 (unknown) (no date) (unknown) All (no value) (units unknown ) (unknown) Result panel 2291 (unknown) (no date) (unknown) All (no value) (units unknown ) (unknown) Result panel 2292 (unknown) (no date) (unknown) All (no value) (units unknown ) (unknown) Result panel 2293 (unknown) (no date) (unknown) All (no value) (units unknown ) (unknown) Result panel 2294 (unknown) (no date) (unknown) All (no value) (units unknown ) (unknown) Result panel 2295 (unknown) (no date) (unknown) All (no value) (units unknown ) (unknown) Result panel 2296 (unknown) (no date) (unknown) All (no value) (units unknown ) (unknown) Result panel 2297 (unknown) (no date) (unknown) All (no value) (units unknown ) (unknown) Result panel 2298 (unknown) (no date) (unknown) All (no value) (units unknown ) (unknown) Result panel 2299 (unknown) (no date) (unknown) All (no value) (units unknown ) (unknown) Result panel 2300 (unknown) (no date) (unknown) All (no value) (units unknown ) (unknown) Result panel 2301 (unknown) (no date) (unknown) All (no value) (units unknown ) (unknown) Result panel 2302 (unknown) (no date) (unknown) All (no value) (units unknown ) (unknown) Result panel 2303 (unknown) (no date) (unknown) All (no value) (units unknown ) (unknown) Result panel 2304 (unknown) (no date) (unknown) All (no value) (units unknown ) (unknown) Result panel 2305 (unknown) (no date) (unknown) All (no value) (units unknown ) (unknown) Result panel 2306 (unknown) (no date) (unknown) All (no value) (units unknown ) (unknown) Result panel 2307 (unknown) (no date) (unknown) All (no value) (units unknown ) (unknown) Result panel 2308 (unknown) (no date) (unknown) All (no value) (units unknown ) (unknown) Result panel 2309 (unknown) (no date) (unknown) All (no value) (units unknown ) (unknown) Result panel 2310 (unknown) (no date) (unknown) All (no value) (units unknown ) (unknown) Result panel 2311 (unknown) (no date) (unknown) All (no value) (units unknown ) (unknown) Result panel 2312 (unknown) (no date) (unknown) All (no value) (units unknown ) (unknown) Result panel 2313 (unknown) (no date) (unknown) All (no value) (units unknown ) (unknown) Result panel 2314 (unknown) (no date) (unknown) All (no value) (units unknown ) (unknown) Result panel 2315 (unknown) (no date) (unknown) All (no value) (units unknown ) (unknown) Result panel 2316 (unknown) (no date) (unknown) All (no value) (units unknown ) (unknown) Result panel 2317 (unknown) (no date) (unknown) All (no value) (units unknown ) (unknown) Result panel 2318 (unknown) (no date) (unknown) All (no value) (units unknown ) (unknown) Result panel 2319 (unknown) (no date) (unknown) All (no value) (units unknown ) (unknown) Result panel 2320 (unknown) (no date) (unknown) All (no value) (units unknown ) (unknown) Result panel 2321 (unknown) (no date) (unknown) All (no value) (units unknown ) (unknown) Result panel 2322 (unknown) (no date) (unknown) All (no value) (units unknown ) (unknown) Result panel 2323 (unknown) (no date) (unknown) All (no value) (units unknown ) (unknown) Result panel 2324 (unknown) (no date) (unknown) All (no value) (units unknown ) (unknown) Result panel 2325 (unknown) (no date) (unknown) All (no value) (units unknown ) (unknown) Result panel 2326 (unknown) (no date) (unknown) All (no value) (units unknown ) (unknown) Result panel 2327 (unknown) (no date) (unknown) All (no value) (units unknown ) (unknown) Result panel 2328 (unknown) (no date) (unknown) All (no value) (units unknown ) (unknown) Result panel 2329 (unknown) (no date) (unknown) All (no value) (units unknown ) (unknown) Result panel 2330 (unknown) (no date) (unknown) All (no value) (units unknown ) (unknown) Result panel 2331 (unknown) (no date) (unknown) All (no value) (units unknown ) (unknown) Result panel 2332 (unknown) (no date) (unknown) All (no value) (units unknown ) (unknown) Result panel 2333 (unknown) (no date) (unknown) All (no value) (units unknown ) (unknown) Result panel 2334 (unknown) (no date) (unknown) All (no value) (units unknown ) (unknown) Result panel 2335 (unknown) (no date) (unknown) All (no value) (units unknown ) (unknown) Result panel 2336 (unknown) (no date) (unknown) All (no value) (units unknown ) (unknown) Result panel 2337 (unknown) (no date) (unknown) All (no value) (units unknown ) (unknown) Result panel 2338 (unknown) (no date) (unknown) All (no value) (units unknown ) (unknown) Result panel 2339 (unknown) (no date) (unknown) All (no value) (units unknown ) (unknown) Result panel 2340 (unknown) (no date) (unknown) All (no value) (units unknown ) (unknown) Result panel 2341 (unknown) (no date) (unknown) All (no value) (units unknown ) (unknown) Result panel 2342 (unknown) (no date) (unknown) All (no value) (units unknown ) (unknown) Result panel 2343 (unknown) (no date) (unknown) All (no value) (units unknown ) (unknown) Result panel 2344 (unknown) (no date) (unknown) All (no value) (units unknown ) (unknown) Result panel 2345 (unknown) (no date) (unknown) All (no value) (units unknown ) (unknown) Result panel 2346 (unknown) (no date) (unknown) All (no value) (units unknown ) (unknown) Result panel 2347 (unknown) (no date) (unknown) All (no value) (units unknown ) (unknown) Result panel 2348 (unknown) (no date) (unknown) All (no value) (units unknown ) (unknown) Result panel 2349 (unknown) (no date) (unknown) All (no value) (units unknown ) (unknown) Result panel 2350 (unknown) (no date) (unknown) All (no value) (units unknown ) (unknown) Result panel 2351 (unknown) (no date) (unknown) All (no value) (units unknown ) (unknown) Result panel 2352 (unknown) (no date) (unknown) All (no value) (units unknown ) (unknown) Result panel 2353 (unknown) (no date) (unknown) All (no value) (units unknown ) (unknown) Result panel 2354 (unknown) (no date) (unknown) All (no value) (units unknown ) (unknown) Result panel 2355 (unknown) (no date) (unknown) All (no value) (units unknown ) (unknown) Result panel 2356 (unknown) (no date) (unknown) All (no value) (units unknown ) (unknown) Result panel 2357 (unknown) (no date) (unknown) All (no value) (units unknown ) (unknown) Result panel 2358 (unknown) (no date) (unknown) All (no value) (units unknown ) (unknown) Result panel 2359 (unknown) (no date) (unknown) All (no value) (units unknown ) (unknown) Result panel 2360 (unknown) (no date) (unknown) All (no value) (units unknown ) (unknown) Result panel 2361 (unknown) (no date) (unknown) All (no value) (units unknown ) (unknown) Result panel 2362 (unknown) (no date) (unknown) All (no value) (units unknown ) (unknown) Result panel 2363 (unknown) (no date) (unknown) All (no value) (units unknown ) (unknown) Result panel 2364 (unknown) (no date) (unknown) All (no value) (units unknown ) (unknown) Result panel 2365 (unknown) (no date) (unknown) All (no value) (units unknown ) (unknown) Result panel 2366 (unknown) (no date) (unknown) All (no value) (units unknown ) (unknown) Result panel 2367 (unknown) (no date) (unknown) All (no value) (units unknown ) (unknown) Result panel 2368 (unknown) (no date) (unknown) All (no value) (units unknown ) (unknown) Result panel 2369 (unknown) (no date) (unknown) All (no value) (units unknown ) (unknown) Result panel 2370 (unknown) (no date) (unknown) All (no value) (units unknown ) (unknown) Result panel 2371 (unknown) (no date) (unknown) All (no value) (units unknown ) (unknown) Result panel 2372 (unknown) (no date) (unknown) All (no value) (units unknown ) (unknown) Result panel 2373 (unknown) (no date) (unknown) All (no value) (units unknown ) (unknown) Result panel 2374 (unknown) (no date) (unknown) All (no value) (units unknown ) (unknown) Result panel 2375 (unknown) (no date) (unknown) All (no value) (units unknown ) (unknown) Result panel 2376 (unknown) (no date) (unknown) All (no value) (units unknown ) (unknown) Result panel 2377 (unknown) (no date) (unknown) All (no value) (units unknown ) (unknown) Result panel 2378 (unknown) (no date) (unknown) All (no value) (units unknown ) (unknown) Result panel 2379 (unknown) (no date) (unknown) All (no value) (units unknown ) (unknown) Result panel 2380 (unknown) (no date) (unknown) All (no value) (units unknown ) (unknown) Result panel 2381 (unknown) (no date) (unknown) All (no value) (units unknown ) (unknown) Result panel 2382 (unknown) (no date) (unknown) All (no value) (units unknown ) (unknown) Result panel 2383 (unknown) (no date) (unknown) All (no value) (units unknown ) (unknown) Result panel 2384 (unknown) (no date) (unknown) All (no value) (units unknown ) (unknown) Result panel 2385 (unknown) (no date) (unknown) All (no value) (units unknown ) (unknown) Result panel 2386 (unknown) (no date) (unknown) All (no value) (units unknown ) (unknown) Result panel 2387 (unknown) (no date) (unknown) All (no value) (units unknown ) (unknown) Result panel 2388 (unknown) (no date) (unknown) All (no value) (units unknown ) (unknown) Result panel 2389 (unknown) (no date) (unknown) All (no value) (units unknown ) (unknown) Result panel 2390 (unknown) (no date) (unknown) All (no value) (units unknown ) (unknown) Result panel 2391 (unknown) (no date) (unknown) All (no value) (units unknown ) (unknown) Result panel 2392 (unknown) (no date) (unknown) All (no value) (units unknown ) (unknown) Result panel 2393 (unknown) (no date) (unknown) All (no value) (units unknown ) (unknown) Result panel 2394 (unknown) (no date) (unknown) All (no value) (units unknown ) (unknown) Result panel 2395 (unknown) (no date) (unknown) All (no value) (units unknown ) (unknown) Result panel 2396 (unknown) (no date) (unknown) All (no value) (units unknown ) (unknown) Result panel 2397 (unknown) (no date) (unknown) All (no value) (units unknown ) (unknown) Result panel 2398 (unknown) (no date) (unknown) All (no value) (units unknown ) (unknown) Result panel 2399 (unknown) (no date) (unknown) All (no value) (units unknown ) (unknown) Result panel 2400 (unknown) (no date) (unknown) All (no value) (units unknown ) (unknown) Result panel 2401 (unknown) (no date) (unknown) All (no value) (units unknown ) (unknown) Result panel 2402 (unknown) (no date) (unknown) All (no value) (units unknown ) (unknown) Result panel 2403 (unknown) (no date) (unknown) All (no value) (units unknown ) (unknown) Result panel 2404 (unknown) (no date) (unknown) All (no value) (units unknown ) (unknown) Result panel 2405 (unknown) (no date) (unknown) All (no value) (units unknown ) (unknown) Result panel 2406 (unknown) (no date) (unknown) All (no value) (units unknown ) (unknown) Result panel 2407 (unknown) (no date) (unknown) All (no value) (units unknown ) (unknown) Result panel 2408 (unknown) (no date) (unknown) All (no value) (units unknown ) (unknown) Result panel 2409 (unknown) (no date) (unknown) All (no value) (units unknown ) (unknown) Result panel 2410 (unknown) (no date) (unknown) All (no value) (units unknown ) (unknown) Result panel 2411 (unknown) (no date) (unknown) All (no value) (units unknown ) (unknown) Result panel 2412 (unknown) (no date) (unknown) All (no value) (units unknown ) (unknown) Result panel 2413 (unknown) (no date) (unknown) All (no value) (units unknown ) (unknown) Result panel 2414 (unknown) (no date) (unknown) All (no value) (units unknown ) (unknown) Result panel 2415 (unknown) (no date) (unknown) All (no value) (units unknown ) (unknown) Result panel 2416 (unknown) (no date) (unknown) All (no value) (units unknown ) (unknown) Result panel 2417 (unknown) (no date) (unknown) All (no value) (units unknown ) (unknown) Result panel 2418 (unknown) (no date) (unknown) All (no value) (units unknown ) (unknown) Result panel 2419 (unknown) (no date) (unknown) All (no value) (units unknown ) (unknown) Result panel 2420 (unknown) (no date) (unknown) All (no value) (units unknown ) (unknown) Result panel 2421 (unknown) (no date) (unknown) All (no value) (units unknown ) (unknown) Result panel 2422 (unknown) (no date) (unknown) All (no value) (units unknown ) (unknown) Result panel 2423 (unknown) (no date) (unknown) All (no value) (units unknown ) (unknown) Result panel 2424 (unknown) (no date) (unknown) All (no value) (units unknown ) (unknown) Result panel 2425 (unknown) (no date) (unknown) All (no value) (units unknown ) (unknown) Result panel 2426 (unknown) (no date) (unknown) All (no value) (units unknown ) (unknown) Result panel 2427 (unknown) (no date) (unknown) All (no value) (units unknown ) (unknown) Result panel 2428 (unknown) (no date) (unknown) All (no value) (units unknown ) (unknown) Result panel 2429 (unknown) (no date) (unknown) All (no value) (units unknown ) (unknown) Result panel 2430 (unknown) (no date) (unknown) All (no value) (units unknown ) (unknown) Result panel 2431 (unknown) (no date) (unknown) All (no value) (units unknown ) (unknown) Result panel 2432 (unknown) (no date) (unknown) All (no value) (units unknown ) (unknown) Result panel 2433 (unknown) (no date) (unknown) All (no value) (units unknown ) (unknown) Result panel 2434 (unknown) (no date) (unknown) All (no value) (units unknown ) (unknown) Result panel 2435 (unknown) (no date) (unknown) All (no value) (units unknown ) (unknown) Result panel 2436 (unknown) (no date) (unknown) All (no value) (units unknown ) (unknown) Result panel 2437 (unknown) (no date) (unknown) All (no value) (units unknown ) (unknown) Result panel 2438 (unknown) (no date) (unknown) All (no value) (units unknown ) (unknown) Result panel 2439 (unknown) (no date) (unknown) All (no value) (units unknown ) (unknown) Result panel 2440 (unknown) (no date) (unknown) All (no value) (units unknown ) (unknown) Result panel 2441 (unknown) (no date) (unknown) All (no value) (units unknown ) (unknown) Result panel 2442 (unknown) (no date) (unknown) All (no value) (units unknown ) (unknown) Result panel 2443 (unknown) (no date) (unknown) All (no value) (units unknown ) (unknown) Result panel 2444 (unknown) (no date) (unknown) All (no value) (units unknown ) (unknown) Result panel 2445 (unknown) (no date) (unknown) All (no value) (units unknown ) (unknown) Result panel 2446 (unknown) (no date) (unknown) All (no value) (units unknown ) (unknown) Result panel 2447 (unknown) (no date) (unknown) All (no value) (units unknown ) (unknown) Result panel 2448 (unknown) (no date) (unknown) All (no value) (units unknown ) (unknown) Result panel 2449 (unknown) (no date) (unknown) All (no value) (units unknown ) (unknown) Result panel 2450 (unknown) (no date) (unknown) All (no value) (units unknown ) (unknown) Result panel 2451 (unknown) (no date) (unknown) All (no value) (units unknown ) (unknown) Result panel 2452 (unknown) (no date) (unknown) All (no value) (units unknown ) (unknown) Result panel 2453 (unknown) (no date) (unknown) All (no value) (units unknown ) (unknown) Result panel 2454 (unknown) (no date) (unknown) All (no value) (units unknown ) (unknown) Result panel 2455 (unknown) (no date) (unknown) All (no value) (units unknown ) (unknown) Result panel 2456 (unknown) (no date) (unknown) All (no value) (units unknown ) (unknown) Result panel 2457 (unknown) (no date) (unknown) All (no value) (units unknown ) (unknown) Result panel 2458 (unknown) (no date) (unknown) All (no value) (units unknown ) (unknown) Result panel 2459 (unknown) (no date) (unknown) All (no value) (units unknown ) (unknown) Result panel 2460 (unknown) (no date) (unknown) All (no value) (units unknown ) (unknown) Result panel 2461 (unknown) (no date) (unknown) All (no value) (units unknown ) (unknown) Result panel 2462 (unknown) (no date) (unknown) All (no value) (units unknown ) (unknown) Result panel 2463 (unknown) (no date) (unknown) All (no value) (units unknown ) (unknown) Result panel 2464 (unknown) (no date) (unknown) All (no value) (units unknown ) (unknown) Result panel 2465 (unknown) (no date) (unknown) All (no value) (units unknown ) (unknown) Result panel 2466 (unknown) (no date) (unknown) All (no value) (units unknown ) (unknown) Result panel 2467 (unknown) (no date) (unknown) All (no value) (units unknown ) (unknown) Result panel 2468 (unknown) (no date) (unknown) All (no value) (units unknown ) (unknown) Result panel 2469 (unknown) (no date) (unknown) All (no value) (units unknown ) (unknown) Result panel 2470 (unknown) (no date) (unknown) All (no value) (units unknown ) (unknown) Result panel 2471 (unknown) (no date) (unknown) All (no value) (units unknown ) (unknown) Result panel 2472 (unknown) (no date) (unknown) All (no value) (units unknown ) (unknown) Result panel 2473 (unknown) (no date) (unknown) All (no value) (units unknown ) (unknown) Result panel 2474 (unknown) (no date) (unknown) All (no value) (units unknown ) (unknown) Result panel 2475 (unknown) (no date) (unknown) All (no value) (units unknown ) (unknown) Result panel 2476 (unknown) (no date) (unknown) All (no value) (units unknown ) (unknown) Result panel 2477 (unknown) (no date) (unknown) All (no value) (units unknown ) (unknown) Result panel 2478 (unknown) (no date) (unknown) All (no value) (units unknown ) (unknown) Result panel 2479 (unknown) (no date) (unknown) All (no value) (units unknown ) (unknown) Result panel 2480 (unknown) (no date) (unknown) All (no value) (units unknown ) (unknown) Result panel 2481 (unknown) (no date) (unknown) All (no value) (units unknown ) (unknown) Result panel 2482 (unknown) (no date) (unknown) All (no value) (units unknown ) (unknown) Result panel 2483 (unknown) (no date) (unknown) All (no value) (units unknown ) (unknown) Result panel 2484 (unknown) (no date) (unknown) All (no value) (units unknown ) (unknown) Result panel 2485 (unknown) (no date) (unknown) All (no value) (units unknown ) (unknown) Result panel 2486 (unknown) (no date) (unknown) All (no value) (units unknown ) (unknown) Result panel 2487 (unknown) (no date) (unknown) All (no value) (units unknown ) (unknown) Result panel 2488 (unknown) (no date) (unknown) All (no value) (units unknown ) (unknown) Result panel 2489 (unknown) (no date) (unknown) All (no value) (units unknown ) (unknown) Result panel 2490 (unknown) (no date) (unknown) All (no value) (units unknown ) (unknown) Result panel 2491 (unknown) (no date) (unknown) All (no value) (units unknown ) (unknown) Result panel 2492 (unknown) (no date) (unknown) All (no value) (units unknown ) (unknown) Result panel 2493 (unknown) (no date) (unknown) All (no value) (units unknown ) (unknown) Result panel 2494 (unknown) (no date) (unknown) All (no value) (units unknown ) (unknown) Result panel 2495 (unknown) (no date) (unknown) All (no value) (units unknown ) (unknown) Result panel 2496 (unknown) (no date) (unknown) All (no value) (units unknown ) (unknown) Result panel 2497 (unknown) (no date) (unknown) All (no value) (units unknown ) (unknown) Result panel 2498 (unknown) (no date) (unknown) All (no value) (units unknown ) (unknown) Result panel 2499 (unknown) (no date) (unknown) All (no value) (units unknown ) (unknown) Result panel 2500 (unknown) (no date) (unknown) All (no value) (units unknown ) (unknown) Result panel 2501 (unknown) (no date) (unknown) All (no value) (units unknown ) (unknown) Result panel 2502 (unknown) (no date) (unknown) All (no value) (units unknown ) (unknown) Result panel 2503 (unknown) (no date) (unknown) All (no value) (units unknown ) (unknown) Result panel 2504 (unknown) (no date) (unknown) All (no value) (units unknown ) (unknown) Result panel 2505 (unknown) (no date) (unknown) All (no value) (units unknown ) (unknown) Result panel 2506 (unknown) (no date) (unknown) All (no value) (units unknown ) (unknown) Result panel 2507 (unknown) (no date) (unknown) All (no value) (units unknown ) (unknown) Result panel 2508 (unknown) (no date) (unknown) All (no value) (units unknown ) (unknown) Result panel 2509 (unknown) (no date) (unknown) All (no value) (units unknown ) (unknown) Result panel 2510 (unknown) (no date) (unknown) All (no value) (units unknown ) (unknown) Result panel 2511 (unknown) (no date) (unknown) All (no value) (units unknown ) (unknown) Result panel 2512 (unknown) (no date) (unknown) All (no value) (units unknown ) (unknown) Result panel 2513 (unknown) (no date) (unknown) All (no value) (units unknown ) (unknown) Result panel 2514 (unknown) (no date) (unknown) All (no value) (units unknown ) (unknown) Result panel 2515 (unknown) (no date) (unknown) All (no value) (units unknown ) (unknown) Result panel 2516 (unknown) (no date) (unknown) All (no value) (units unknown ) (unknown) Result panel 2517 (unknown) (no date) (unknown) All (no value) (units unknown ) (unknown) Result panel 2518 (unknown) (no date) (unknown) All (no value) (units unknown ) (unknown) Result panel 2519 (unknown) (no date) (unknown) All (no value) (units unknown ) (unknown) Result panel 2520 (unknown) (no date) (unknown) All (no value) (units unknown ) (unknown) Result panel 2521 (unknown) (no date) (unknown) All (no value) (units unknown ) (unknown) Result panel 2522 (unknown) (no date) (unknown) All (no value) (units unknown ) (unknown) Result panel 2523 (unknown) (no date) (unknown) All (no value) (units unknown ) (unknown) Result panel 2524 (unknown) (no date) (unknown) All (no value) (units unknown ) (unknown) Result panel 2525 (unknown) (no date) (unknown) All (no value) (units unknown ) (unknown) Result panel 2526 (unknown) (no date) (unknown) All (no value) (units unknown ) (unknown) Result panel 2527 (unknown) (no date) (unknown) All (no value) (units unknown ) (unknown) Result panel 2528 (unknown) (no date) (unknown) All (no value) (units unknown ) (unknown) Result panel 2529 (unknown) (no date) (unknown) All (no value) (units unknown ) (unknown) Result panel 2530 (unknown) (no date) (unknown) All (no value) (units unknown ) (unknown) Result panel 2531 (unknown) (no date) (unknown) All (no value) (units unknown ) (unknown) Result panel 2532 (unknown) (no date) (unknown) All (no value) (units unknown ) (unknown) Result panel 2533 (unknown) (no date) (unknown) All (no value) (units unknown ) (unknown) Result panel 2534 (unknown) (no date) (unknown) All (no value) (units unknown ) (unknown) Result panel 2535 (unknown) (no date) (unknown) All (no value) (units unknown ) (unknown) Result panel 2536 (unknown) (no date) (unknown) All (no value) (units unknown ) (unknown) Result panel 2537 (unknown) (no date) (unknown) All (no value) (units unknown ) (unknown) Result panel 2538 (unknown) (no date) (unknown) All (no value) (units unknown ) (unknown) Result panel 2539 (unknown) (no date) (unknown) All (no value) (units unknown ) (unknown) Result panel 2540 (unknown) (no date) (unknown) All (no value) (units unknown ) (unknown) Result panel 2541 (unknown) (no date) (unknown) All (no value) (units unknown ) (unknown) Result panel 2542 (unknown) (no date) (unknown) All (no value) (units unknown ) (unknown) Result panel 2543 (unknown) (no date) (unknown) All (no value) (units unknown ) (unknown) Result panel 2544 (unknown) (no date) (unknown) All (no value) (units unknown ) (unknown) Result panel 2545 (unknown) (no date) (unknown) All (no value) (units unknown ) (unknown) Result panel 2546 (unknown) (no date) (unknown) All (no value) (units unknown ) (unknown) Result panel 2547 (unknown) (no date) (unknown) All (no value) (units unknown ) (unknown) Result panel 2548 (unknown) (no date) (unknown) All (no value) (units unknown ) (unknown) Result panel 2549 (unknown) (no date) (unknown) All (no value) (units unknown ) (unknown) Result panel 2550 (unknown) (no date) (unknown) All (no value) (units unknown ) (unknown) Result panel 2551 (unknown) (no date) (unknown) All (no value) (units unknown ) (unknown) Result panel 2552 (unknown) (no date) (unknown) All (no value) (units unknown ) (unknown) Result panel 2553 (unknown) (no date) (unknown) All (no value) (units unknown ) (unknown) Result panel 2554 (unknown) (no date) (unknown) All (no value) (units unknown ) (unknown) Result panel 2555 (unknown) (no date) (unknown) All (no value) (units unknown ) (unknown) Result panel 2556 (unknown) (no date) (unknown) All (no value) (units unknown ) (unknown) Result panel 2557 (unknown) (no date) (unknown) All (no value) (units unknown ) (unknown) Result panel 2558 (unknown) (no date) (unknown) All (no value) (units unknown ) (unknown) Result panel 2559 (unknown) (no date) (unknown) All (no value) (units unknown ) (unknown) Result panel 2560 (unknown) (no date) (unknown) All (no value) (units unknown ) (unknown) Result panel 2561 (unknown) (no date) (unknown) All (no value) (units unknown ) (unknown) Result panel 2562 (unknown) (no date) (unknown) All (no value) (units unknown ) (unknown) Result panel 2563 (unknown) (no date) (unknown) All (no value) (units unknown ) (unknown) Result panel 2564 (unknown) (no date) (unknown) All (no value) (units unknown ) (unknown) Result panel 2565 (unknown) (no date) (unknown) All (no value) (units unknown ) (unknown) Result panel 2566 (unknown) (no date) (unknown) All (no value) (units unknown ) (unknown) Result panel 2567 (unknown) (no date) (unknown) All (no value) (units unknown ) (unknown) Result panel 2568 (unknown) (no date) (unknown) All (no value) (units unknown ) (unknown) Result panel 2569 (unknown) (no date) (unknown) All (no value) (units unknown ) (unknown) Result panel 2570 (unknown) (no date) (unknown) All (no value) (units unknown ) (unknown) Result panel 2571 (unknown) (no date) (unknown) All (no value) (units unknown ) (unknown) Result panel 2572 (unknown) (no date) (unknown) All (no value) (units unknown ) (unknown) Result panel 2573 (unknown) (no date) (unknown) All (no value) (units unknown ) (unknown) Result panel 2574 (unknown) (no date) (unknown) All (no value) (units unknown ) (unknown) Result panel 2575 (unknown) (no date) (unknown) All (no value) (units unknown ) (unknown) Result panel 2576 (unknown) (no date) (unknown) All (no value) (units unknown ) (unknown) Result panel 2577 (unknown) (no date) (unknown) All (no value) (units unknown ) (unknown) Result panel 2578 (unknown) (no date) (unknown) All (no value) (units unknown ) (unknown) Result panel 2579 (unknown) (no date) (unknown) All (no value) (units unknown ) (unknown) Result panel 2580 (unknown) (no date) (unknown) All (no value) (units unknown ) (unknown) Result panel 2581 (unknown) (no date) (unknown) All (no value) (units unknown ) (unknown) Result panel 2582 (unknown) (no date) (unknown) All (no value) (units unknown ) (unknown) Result panel 2583 (unknown) (no date) (unknown) All (no value) (units unknown ) (unknown) Result panel 2584 (unknown) (no date) (unknown) All (no value) (units unknown ) (unknown) Result panel 2585 (unknown) (no date) (unknown) All (no value) (units unknown ) (unknown) Result panel 2586 (unknown) (no date) (unknown) All (no value) (units unknown ) (unknown) Result panel 2587 (unknown) (no date) (unknown) All (no value) (units unknown ) (unknown) Result panel 2588 (unknown) (no date) (unknown) All (no value) (units unknown ) (unknown) Result panel 2589 (unknown) (no date) (unknown) All (no value) (units unknown ) (unknown) Result panel 2590 (unknown) (no date) (unknown) All (no value) (units unknown ) (unknown) Result panel 2591 (unknown) (no date) (unknown) All (no value) (units unknown ) (unknown) Result panel 2592 (unknown) (no date) (unknown) All (no value) (units unknown ) (unknown) Result panel 2593 (unknown) (no date) (unknown) All (no value) (units unknown ) (unknown) Result panel 2594 (unknown) (no date) (unknown) All (no value) (units unknown ) (unknown) Result panel 2595 (unknown) (no date) (unknown) All (no value) (units unknown ) (unknown) Result panel 2596 (unknown) (no date) (unknown) All (no value) (units unknown ) (unknown) Result panel 2597 (unknown) (no date) (unknown) All (no value) (units unknown ) (unknown) Result panel 2598 (unknown) (no date) (unknown) All (no value) (units unknown ) (unknown) Result panel 2599 (unknown) (no date) (unknown) All (no value) (units unknown ) (unknown) Result panel 2600 (unknown) (no date) (unknown) All (no value) (units unknown ) (unknown) Result panel 2601 (unknown) (no date) (unknown) All (no value) (units unknown ) (unknown) Result panel 2602 (unknown) (no date) (unknown) All (no value) (units unknown ) (unknown) Result panel 2603 (unknown) (no date) (unknown) All (no value) (units unknown ) (unknown) Result panel 2604 (unknown) (no date) (unknown) All (no value) (units unknown ) (unknown) Result panel 2605 (unknown) (no date) (unknown) All (no value) (units unknown ) (unknown) Result panel 2606 (unknown) (no date) (unknown) All (no value) (units unknown ) (unknown) Result panel 2607 (unknown) (no date) (unknown) All (no value) (units unknown ) (unknown) Result panel 2608 (unknown) (no date) (unknown) All (no value) (units unknown ) (unknown) Result panel 2609 (unknown) (no date) (unknown) All (no value) (units unknown ) (unknown) Result panel 2610 (unknown) (no date) (unknown) All (no value) (units unknown ) (unknown) Result panel 2611 (unknown) (no date) (unknown) All (no value) (units unknown ) (unknown) Result panel 2612 (unknown) (no date) (unknown) All (no value) (units unknown ) (unknown) Result panel 2613 (unknown) (no date) (unknown) All (no value) (units unknown ) (unknown) Result panel 2614 (unknown) (no date) (unknown) All (no value) (units unknown ) (unknown) Result panel 2615 (unknown) (no date) (unknown) All (no value) (units unknown ) (unknown) Result panel 2616 (unknown) (no date) (unknown) All (no value) (units unknown ) (unknown) Result panel 2617 (unknown) (no date) (unknown) All (no value) (units unknown ) (unknown) Result panel 2618 (unknown) (no date) (unknown) All (no value) (units unknown ) (unknown) Result panel 2619 (unknown) (no date) (unknown) All (no value) (units unknown ) (unknown) Result panel 2620 (unknown) (no date) (unknown) All (no value) (units unknown ) (unknown) Result panel 2621 (unknown) (no date) (unknown) All (no value) (units unknown ) (unknown) Result panel 2622 (unknown) (no date) (unknown) All (no value) (units unknown ) (unknown) Result panel 2623 (unknown) (no date) (unknown) All (no value) (units unknown ) (unknown) Result panel 2624 (unknown) (no date) (unknown) All (no value) (units unknown ) (unknown) Result panel 2625 (unknown) (no date) (unknown) All (no value) (units unknown ) (unknown) Result panel 2626 (unknown) (no date) (unknown) All (no value) (units unknown ) (unknown) Result panel 2627 (unknown) (no date) (unknown) All (no value) (units unknown ) (unknown) Result panel 2628 (unknown) (no date) (unknown) All (no value) (units unknown ) (unknown) Result panel 2629 (unknown) (no date) (unknown) All (no value) (units unknown ) (unknown) Result panel 2630 (unknown) (no date) (unknown) All (no value) (units unknown ) (unknown) Result panel 2631 (unknown) (no date) (unknown) All (no value) (units unknown ) (unknown) Result panel 2632 (unknown) (no date) (unknown) All (no value) (units unknown ) (unknown) Result panel 2633 (unknown) (no date) (unknown) All (no value) (units unknown ) (unknown) Result panel 2634 (unknown) (no date) (unknown) All (no value) (units unknown ) (unknown) Result panel 2635 (unknown) (no date) (unknown) All (no value) (units unknown ) (unknown) Result panel 2636 (unknown) (no date) (unknown) All (no value) (units unknown ) (unknown) Result panel 2637 (unknown) (no date) (unknown) All (no value) (units unknown ) (unknown) Result panel 2638 (unknown) (no date) (unknown) All (no value) (units unknown ) (unknown) Result panel 2639 (unknown) (no date) (unknown) All (no value) (units unknown ) (unknown) Result panel 2640 (unknown) (no date) (unknown) All (no value) (units unknown ) (unknown) Result panel 2641 (unknown) (no date) (unknown) All (no value) (units unknown ) (unknown) Result panel 2642 (unknown) (no date) (unknown) All (no value) (units unknown ) (unknown) Result panel 2643 (unknown) (no date) (unknown) All (no value) (units unknown ) (unknown) Result panel 2644 (unknown) (no date) (unknown) All (no value) (units unknown ) (unknown) Result panel 2645 (unknown) (no date) (unknown) All (no value) (units unknown ) (unknown) Result panel 2646 (unknown) (no date) (unknown) All (no value) (units unknown ) (unknown) Result panel 2647 (unknown) (no date) (unknown) All (no value) (units unknown ) (unknown) Result panel 2648 (unknown) (no date) (unknown) All (no value) (units unknown ) (unknown) Result panel 2649 (unknown) (no date) (unknown) All (no value) (units unknown ) (unknown) Result panel 2650 (unknown) (no date) (unknown) All (no value) (units unknown ) (unknown) Result panel 2651 (unknown) (no date) (unknown) All (no value) (units unknown ) (unknown) Result panel 2652 (unknown) (no date) (unknown) All (no value) (units unknown ) (unknown) Result panel 2653 (unknown) (no date) (unknown) All (no value) (units unknown ) (unknown) Result panel 2654 (unknown) (no date) (unknown) All (no value) (units unknown ) (unknown) Result panel 2655 (unknown) (no date) (unknown) All (no value) (units unknown ) (unknown) Result panel 2656 (unknown) (no date) (unknown) All (no value) (units unknown ) (unknown) Result panel 2657 (unknown) (no date) (unknown) All (no value) (units unknown ) (unknown) Result panel 2658 (unknown) (no date) (unknown) All (no value) (units unknown ) (unknown) Result panel 2659 (unknown) (no date) (unknown) All (no value) (units unknown ) (unknown) Result panel 2660 (unknown) (no date) (unknown) All (no value) (units unknown ) (unknown) Result panel 2661 (unknown) (no date) (unknown) All (no value) (units unknown ) (unknown) Result panel 2662 (unknown) (no date) (unknown) All (no value) (units unknown ) (unknown) Result panel 2663 (unknown) (no date) (unknown) All (no value) (units unknown ) (unknown) Result panel 2664 (unknown) (no date) (unknown) All (no value) (units unknown ) (unknown) Result panel 2665 (unknown) (no date) (unknown) All (no value) (units unknown ) (unknown) Result panel 2666 (unknown) (no date) (unknown) All (no value) (units unknown ) (unknown) Result panel 2667 (unknown) (no date) (unknown) All (no value) (units unknown ) (unknown) Result panel 2668 (unknown) (no date) (unknown) All (no value) (units unknown ) (unknown) Result panel 2669 (unknown) (no date) (unknown) All (no value) (units unknown ) (unknown) Result panel 2670 (unknown) (no date) (unknown) All (no value) (units unknown ) (unknown) Result panel 2671 (unknown) (no date) (unknown) All (no value) (units unknown ) (unknown) Result panel 2672 (unknown) (no date) (unknown) All (no value) (units unknown ) (unknown) Result panel 2673 (unknown) (no date) (unknown) All (no value) (units unknown ) (unknown) Result panel 2674 (unknown) (no date) (unknown) All (no value) (units unknown ) (unknown) Result panel 2675 (unknown) (no date) (unknown) All (no value) (units unknown ) (unknown) Result panel 2676 (unknown) (no date) (unknown) All (no value) (units unknown ) (unknown) Result panel 2677 (unknown) (no date) (unknown) All (no value) (units unknown ) (unknown) Result panel 2678 (unknown) (no date) (unknown) All (no value) (units unknown ) (unknown) Result panel 2679 (unknown) (no date) (unknown) All (no value) (units unknown ) (unknown) Result panel 2680 (unknown) (no date) (unknown) All (no value) (units unknown ) (unknown) Result panel 2681 (unknown) (no date) (unknown) All (no value) (units unknown ) (unknown) Result panel 2682 (unknown) (no date) (unknown) All (no value) (units unknown ) (unknown) Result panel 2683 (unknown) (no date) (unknown) All (no value) (units unknown ) (unknown) Result panel 2684 (unknown) (no date) (unknown) All (no value) (units unknown ) (unknown) Result panel 2685 (unknown) (no date) (unknown) All (no value) (units unknown ) (unknown) Result panel 2686 (unknown) (no date) (unknown) All (no value) (units unknown ) (unknown) Result panel 2687 (unknown) (no date) (unknown) All (no value) (units unknown ) (unknown) Result panel 2688 (unknown) (no date) (unknown) All (no value) (units unknown ) (unknown) Result panel 2689 (unknown) (no date) (unknown) All (no value) (units unknown ) (unknown) Result panel 2690 (unknown) (no date) (unknown) All (no value) (units unknown ) (unknown) Result panel 2691 (unknown) (no date) (unknown) All (no value) (units unknown ) (unknown) Result panel 2692 (unknown) (no date) (unknown) All (no value) (units unknown ) (unknown) Result panel 2693 (unknown) (no date) (unknown) All (no value) (units unknown ) (unknown) Result panel 2694 (unknown) (no date) (unknown) All (no value) (units unknown ) (unknown) Result panel 2695 (unknown) (no date) (unknown) All (no value) (units unknown ) (unknown) Result panel 2696 (unknown) (no date) (unknown) All (no value) (units unknown ) (unknown) Result panel 2697 (unknown) (no date) (unknown) All (no value) (units unknown ) (unknown) Result panel 2698 (unknown) (no date) (unknown) All (no value) (units unknown ) (unknown) Result panel 2699 (unknown) (no date) (unknown) All (no value) (units unknown ) (unknown) Result panel 2700 (unknown) (no date) (unknown) All (no value) (units unknown ) (unknown) Result panel 2701 (unknown) (no date) (unknown) All (no value) (units unknown ) (unknown) Result panel 2702 (unknown) (no date) (unknown) All (no value) (units unknown ) (unknown) Result panel 2703 (unknown) (no date) (unknown) All (no value) (units unknown ) (unknown) Result panel 2704 (unknown) (no date) (unknown) All (no value) (units unknown ) (unknown) Result panel 2705 (unknown) (no date) (unknown) All (no value) (units unknown ) (unknown) Result panel 2706 (unknown) (no date) (unknown) All (no value) (units unknown ) (unknown) Result panel 2707 (unknown) (no date) (unknown) All (no value) (units unknown ) (unknown) Result panel 2708 (unknown) (no date) (unknown) All (no value) (units unknown ) (unknown) Result panel 2709 (unknown) (no date) (unknown) All (no value) (units unknown ) (unknown) Result panel 2710 (unknown) (no date) (unknown) All (no value) (units unknown ) (unknown) Result panel 2711 (unknown) (no date) (unknown) All (no value) (units unknown ) (unknown) Result panel 2712 (unknown) (no date) (unknown) All (no value) (units unknown ) (unknown) Result panel 2713 (unknown) (no date) (unknown) All (no value) (units unknown ) (unknown) Result panel 2714 (unknown) (no date) (unknown) All (no value) (units unknown ) (unknown) Result panel 2715 (unknown) (no date) (unknown) All (no value) (units unknown ) (unknown) Result panel 2716 (unknown) (no date) (unknown) All (no value) (units unknown ) (unknown) Result panel 2717 (unknown) (no date) (unknown) All (no value) (units unknown ) (unknown) Result panel 2718 (unknown) (no date) (unknown) All (no value) (units unknown ) (unknown) Result panel 2719 (unknown) (no date) (unknown) All (no value) (units unknown ) (unknown) Result panel 2720 (unknown) (no date) (unknown) All (no value) (units unknown ) (unknown) Result panel 2721 (unknown) (no date) (unknown) All (no value) (units unknown ) (unknown) Result panel 2722 (unknown) (no date) (unknown) All (no value) (units unknown ) (unknown) Result panel 2723 (unknown) (no date) (unknown) All (no value) (units unknown ) (unknown) Result panel 2724 (unknown) (no date) (unknown) All (no value) (units unknown ) (unknown) Result panel 2725 (unknown) (no date) (unknown) All (no value) (units unknown ) (unknown) Result panel 2726 (unknown) (no date) (unknown) All (no value) (units unknown ) (unknown) Result panel 2727 (unknown) (no date) (unknown) All (no value) (units unknown ) (unknown) Result panel 2728 (unknown) (no date) (unknown) All (no value) (units unknown ) (unknown) Result panel 2729 (unknown) (no date) (unknown) All (no value) (units unknown ) (unknown) Result panel 2730 (unknown) (no date) (unknown) All (no value) (units unknown ) (unknown) Result panel 2731 (unknown) (no date) (unknown) All (no value) (units unknown ) (unknown) Result panel 2732 (unknown) (no date) (unknown) All (no value) (units unknown ) (unknown) Result panel 2733 (unknown) (no date) (unknown) All (no value) (units unknown ) (unknown) Result panel 2734 (unknown) (no date) (unknown) All (no value) (units unknown ) (unknown) Result panel 2735 (unknown) (no date) (unknown) All (no value) (units unknown ) (unknown) Result panel 2736 (unknown) (no date) (unknown) All (no value) (units unknown ) (unknown) Result panel 2737 (unknown) (no date) (unknown) All (no value) (units unknown ) (unknown) Result panel 2738 (unknown) (no date) (unknown) All (no value) (units unknown ) (unknown) Result panel 2739 (unknown) (no date) (unknown) All (no value) (units unknown ) (unknown) Result panel 2740 (unknown) (no date) (unknown) All (no value) (units unknown ) (unknown) Result panel 2741 (unknown) (no date) (unknown) All (no value) (units unknown ) (unknown) Result panel 2742 (unknown) (no date) (unknown) All (no value) (units unknown ) (unknown) Result panel 2743 (unknown) (no date) (unknown) All (no value) (units unknown ) (unknown) Result panel 2744 (unknown) (no date) (unknown) All (no value) (units unknown ) (unknown) Result panel 2745 (unknown) (no date) (unknown) All (no value) (units unknown ) (unknown) Result panel 2746 (unknown) (no date) (unknown) All (no value) (units unknown ) (unknown) Result panel 2747 (unknown) (no date) (unknown) All (no value) (units unknown ) (unknown) Result panel 2748 (unknown) (no date) (unknown) All (no value) (units unknown ) (unknown) Result panel 2749 (unknown) (no date) (unknown) All (no value) (units unknown ) (unknown) Result panel 2750 (unknown) (no date) (unknown) All (no value) (units unknown ) (unknown) Result panel 2751 (unknown) (no date) (unknown) All (no value) (units unknown ) (unknown) Result panel 2752 (unknown) (no date) (unknown) All (no value) (units unknown ) (unknown) Result panel 2753 (unknown) (no date) (unknown) All (no value) (units unknown ) (unknown) Result panel 2754 (unknown) (no date) (unknown) All (no value) (units unknown ) (unknown) Result panel 2755 (unknown) (no date) (unknown) All (no value) (units unknown ) (unknown) Result panel 2756 (unknown) (no date) (unknown) All (no value) (units unknown ) (unknown) Result panel 2757 (unknown) (no date) (unknown) All (no value) (units unknown ) (unknown) Result panel 2758 (unknown) (no date) (unknown) All (no value) (units unknown ) (unknown) Result panel 2759 (unknown) (no date) (unknown) All (no value) (units unknown ) (unknown) Result panel 2760 (unknown) (no date) (unknown) All (no value) (units unknown ) (unknown) Result panel 2761 (unknown) (no date) (unknown) All (no value) (units unknown ) (unknown) Result panel 2762 (unknown) (no date) (unknown) All (no value) (units unknown ) (unknown) Result panel 2763 (unknown) (no date) (unknown) All (no value) (units unknown ) (unknown) Result panel 2764 (unknown) (no date) (unknown) All (no value) (units unknown ) (unknown) Result panel 2765 (unknown) (no date) (unknown) All (no value) (units unknown ) (unknown) Result panel 2766 (unknown) (no date) (unknown) All (no value) (units unknown ) (unknown) Result panel 2767 (unknown) (no date) (unknown) All (no value) (units unknown ) (unknown) Result panel 2768 (unknown) (no date) (unknown) All (no value) (units unknown ) (unknown) Result panel 2769 (unknown) (no date) (unknown) All (no value) (units unknown ) (unknown) Result panel 2770 (unknown) (no date) (unknown) All (no value) (units unknown ) (unknown) Result panel 2771 (unknown) (no date) (unknown) All (no value) (units unknown ) (unknown) Result panel 2772 (unknown) (no date) (unknown) All (no value) (units unknown ) (unknown) Result panel 2773 (unknown) (no date) (unknown) All (no value) (units unknown ) (unknown) Result panel 2774 (unknown) (no date) (unknown) All (no value) (units unknown ) (unknown) Result panel 2775 (unknown) (no date) (unknown) All (no value) (units unknown ) (unknown) Result panel 2776 (unknown) (no date) (unknown) All (no value) (units unknown ) (unknown) Result panel 2777 (unknown) (no date) (unknown) All (no value) (units unknown ) (unknown) Result panel 2778 (unknown) (no date) (unknown) All (no value) (units unknown ) (unknown) Result panel 2779 (unknown) (no date) (unknown) All (no value) (units unknown ) (unknown) Result panel 2780 (unknown) (no date) (unknown) All (no value) (units unknown ) (unknown) Result panel 2781 (unknown) (no date) (unknown) All (no value) (units unknown ) (unknown) Result panel 2782 (unknown) (no date) (unknown) All (no value) (units unknown ) (unknown) Result panel 2783 (unknown) (no date) (unknown) All (no value) (units unknown ) (unknown) Result panel 2784 (unknown) (no date) (unknown) All (no value) (units unknown ) (unknown) Result panel 2785 (unknown) (no date) (unknown) All (no value) (units unknown ) (unknown) Result panel 2786 (unknown) (no date) (unknown) All (no value) (units unknown ) (unknown) Result panel 2787 (unknown) (no date) (unknown) All (no value) (units unknown ) (unknown) Result panel 2788 (unknown) (no date) (unknown) All (no value) (units unknown ) (unknown) Result panel 2789 (unknown) (no date) (unknown) All (no value) (units unknown ) (unknown) Result panel 2790 (unknown) (no date) (unknown) All (no value) (units unknown ) (unknown) Result panel 2791 (unknown) (no date) (unknown) All (no value) (units unknown ) (unknown) Result panel 2792 (unknown) (no date) (unknown) All (no value) (units unknown ) (unknown) Result panel 2793 (unknown) (no date) (unknown) All (no value) (units unknown ) (unknown) Result panel 2794 (unknown) (no date) (unknown) All (no value) (units unknown ) (unknown) Result panel 2795 (unknown) (no date) (unknown) All (no value) (units unknown ) (unknown) Result panel 2796 (unknown) (no date) (unknown) All (no value) (units unknown ) (unknown) Result panel 2797 (unknown) (no date) (unknown) All (no value) (units unknown ) (unknown) Result panel 2798 (unknown) (no date) (unknown) All (no value) (units unknown ) (unknown) Result panel 2799 (unknown) (no date) (unknown) All (no value) (units unknown ) (unknown) Result panel 2800 (unknown) (no date) (unknown) All (no value) (units unknown ) (unknown) Result panel 2801 (unknown) (no date) (unknown) All (no value) (units unknown ) (unknown) Result panel 2802 (unknown) (no date) (unknown) All (no value) (units unknown ) (unknown) Result panel 2803 (unknown) (no date) (unknown) All (no value) (units unknown ) (unknown) Result panel 2804 (unknown) (no date) (unknown) All (no value) (units unknown ) (unknown) Result panel 2805 (unknown) (no date) (unknown) All (no value) (units unknown ) (unknown) Result panel 2806 (unknown) (no date) (unknown) All (no value) (units unknown ) (unknown) Result panel 2807 (unknown) (no date) (unknown) All (no value) (units unknown ) (unknown) Result panel 2808 (unknown) (no date) (unknown) All (no value) (units unknown ) (unknown) Result panel 2809 (unknown) (no date) (unknown) All (no value) (units unknown ) (unknown) Result panel 2810 (unknown) (no date) (unknown) All (no value) (units unknown ) (unknown) Result panel 2811 (unknown) (no date) (unknown) All (no value) (units unknown ) (unknown) Result panel 2812 (unknown) (no date) (unknown) All (no value) (units unknown ) (unknown) Result panel 2813 (unknown) (no date) (unknown) All (no value) (units unknown ) (unknown) Result panel 2814 (unknown) (no date) (unknown) All (no value) (units unknown ) (unknown) Result panel 2815 (unknown) (no date) (unknown) All (no value) (units unknown ) (unknown) Result panel 2816 (unknown) (no date) (unknown) All (no value) (units unknown ) (unknown) Result panel 2817 (unknown) (no date) (unknown) All (no value) (units unknown ) (unknown) Result panel 2818 (unknown) (no date) (unknown) All (no value) (units unknown ) (unknown) Result panel 2819 (unknown) (no date) (unknown) All (no value) (units unknown ) (unknown) Result panel 2820 (unknown) (no date) (unknown) All (no value) (units unknown ) (unknown) Result panel 2821 (unknown) (no date) (unknown) All (no value) (units unknown ) (unknown) Result panel 2822 (unknown) (no date) (unknown) All (no value) (units unknown ) (unknown) Result panel 2823 (unknown) (no date) (unknown) All (no value) (units unknown ) (unknown) Result panel 2824 (unknown) (no date) (unknown) All (no value) (units unknown ) (unknown) Result panel 2825 (unknown) (no date) (unknown) All (no value) (units unknown ) (unknown) Result panel 2826 (unknown) (no date) (unknown) All (no value) (units unknown ) (unknown) Result panel 2827 (unknown) (no date) (unknown) All (no value) (units unknown ) (unknown) Result panel 2828 (unknown) (no date) (unknown) All (no value) (units unknown ) (unknown) Result panel 2829 (unknown) (no date) (unknown) All (no value) (units unknown ) (unknown) Result panel 2830 (unknown) (no date) (unknown) All (no value) (units unknown ) (unknown) Result panel 2831 (unknown) (no date) (unknown) All (no value) (units unknown ) (unknown) Result panel 2832 (unknown) (no date) (unknown) All (no value) (units unknown ) (unknown) Result panel 2833 (unknown) (no date) (unknown) All (no value) (units unknown ) (unknown) Result panel 2834 (unknown) (no date) (unknown) All (no value) (units unknown ) (unknown) Result panel 2835 (unknown) (no date) (unknown) All (no value) (units unknown ) (unknown) Result panel 2836 (unknown) (no date) (unknown) All (no value) (units unknown ) (unknown) Result panel 2837 (unknown) (no date) (unknown) All (no value) (units unknown ) (unknown) Result panel 2838 (unknown) (no date) (unknown) All (no value) (units unknown ) (unknown) Result panel 2839 (unknown) (no date) (unknown) All (no value) (units unknown ) (unknown) Result panel 2840 (unknown) (no date) (unknown) All (no value) (units unknown ) (unknown) Result panel 2841 (unknown) (no date) (unknown) All (no value) (units unknown ) (unknown) Result panel 2842 (unknown) (no date) (unknown) All (no value) (units unknown ) (unknown) Result panel 2843 (unknown) (no date) (unknown) All (no value) (units unknown ) (unknown) Result panel 2844 (unknown) (no date) (unknown) All (no value) (units unknown ) (unknown) Result panel 2845 (unknown) (no date) (unknown) All (no value) (units unknown ) (unknown) Result panel 2846 (unknown) (no date) (unknown) All (no value) (units unknown ) (unknown) Result panel 2847 (unknown) (no date) (unknown) All (no value) (units unknown ) (unknown) Result panel 2848 (unknown) (no date) (unknown) All (no value) (units unknown ) (unknown) Result panel 2849 (unknown) (no date) (unknown) All (no value) (units unknown ) (unknown) Result panel 2850 (unknown) (no date) (unknown) All (no value) (units unknown ) (unknown) Result panel 2851 (unknown) (no date) (unknown) All (no value) (units unknown ) (unknown) Result panel 2852 (unknown) (no date) (unknown) All (no value) (units unknown ) (unknown) Result panel 2853 (unknown) (no date) (unknown) All (no value) (units unknown ) (unknown) Result panel 2854 (unknown) (no date) (unknown) All (no value) (units unknown ) (unknown) Result panel 2855 (unknown) (no date) (unknown) All (no value) (units unknown ) (unknown) Result panel 2856 (unknown) (no date) (unknown) All (no value) (units unknown ) (unknown) Result panel 2857 (unknown) (no date) (unknown) All (no value) (units unknown ) (unknown) Result panel 2858 (unknown) (no date) (unknown) All (no value) (units unknown ) (unknown) Result panel 2859 (unknown) (no date) (unknown) All (no value) (units unknown ) (unknown) Result panel 2860 (unknown) (no date) (unknown) All (no value) (units unknown ) (unknown) Result panel 2861 (unknown) (no date) (unknown) All (no value) (units unknown ) (unknown) Result panel 2862 (unknown) (no date) (unknown) All (no value) (units unknown ) (unknown) Result panel 2863 (unknown) (no date) (unknown) All (no value) (units unknown ) (unknown) Result panel 2864 (unknown) (no date) (unknown) All (no value) (units unknown ) (unknown) Result panel 2865 (unknown) (no date) (unknown) All (no value) (units unknown ) (unknown) Result panel 2866 (unknown) (no date) (unknown) All (no value) (units unknown ) (unknown) Result panel 2867 (unknown) (no date) (unknown) All (no value) (units unknown ) (unknown) Result panel 2868 (unknown) (no date) (unknown) All (no value) (units unknown ) (unknown) Result panel 2869 (unknown) (no date) (unknown) All (no value) (units unknown ) (unknown) Result panel 2870 (unknown) (no date) (unknown) All (no value) (units unknown ) (unknown) Result panel 2871 (unknown) (no date) (unknown) All (no value) (units unknown ) (unknown) Result panel 2872 (unknown) (no date) (unknown) All (no value) (units unknown ) (unknown) Result panel 2873 (unknown) (no date) (unknown) All (no value) (units unknown ) (unknown) Result panel 2874 (unknown) (no date) (unknown) All (no value) (units unknown ) (unknown) Result panel 2875 (unknown) (no date) (unknown) All (no value) (units unknown ) (unknown) Result panel 2876 (unknown) (no date) (unknown) All (no value) (units unknown ) (unknown) Result panel 2877 (unknown) (no date) (unknown) All (no value) (units unknown ) (unknown) Result panel 2878 (unknown) (no date) (unknown) All (no value) (units unknown ) (unknown) Result panel 2879 (unknown) (no date) (unknown) All (no value) (units unknown ) (unknown) Result panel 2880 (unknown) (no date) (unknown) All (no value) (units unknown ) (unknown) Result panel 2881 (unknown) (no date) (unknown) All (no value) (units unknown ) (unknown) Result panel 2882 (unknown) (no date) (unknown) All (no value) (units unknown ) (unknown) Result panel 2883 (unknown) (no date) (unknown) All (no value) (units unknown ) (unknown) Result panel 2884 (unknown) (no date) (unknown) All (no value) (units unknown ) (unknown) Result panel 2885 (unknown) (no date) (unknown) All (no value) (units unknown ) (unknown) Result panel 2886 (unknown) (no date) (unknown) All (no value) (units unknown ) (unknown) Result panel 2887 (unknown) (no date) (unknown) All (no value) (units unknown ) (unknown) Result panel 2888 (unknown) (no date) (unknown) All (no value) (units unknown ) (unknown) Result panel 2889 (unknown) (no date) (unknown) All (no value) (units unknown ) (unknown) Result panel 2890 (unknown) (no date) (unknown) All (no value) (units unknown ) (unknown) Result panel 2891 (unknown) (no date) (unknown) All (no value) (units unknown ) (unknown) Result panel 2892 (unknown) (no date) (unknown) All (no value) (units unknown ) (unknown) Result panel 2893 (unknown) (no date) (unknown) All (no value) (units unknown ) (unknown) Result panel 2894 (unknown) (no date) (unknown) All (no value) (units unknown ) (unknown) Result panel 2895 (unknown) (no date) (unknown) All (no value) (units unknown ) (unknown) Result panel 2896 (unknown) (no date) (unknown) All (no value) (units unknown ) (unknown) Result panel 2897 (unknown) (no date) (unknown) All (no value) (units unknown ) (unknown) Result panel 2898 (unknown) (no date) (unknown) All (no value) (units unknown ) (unknown) Result panel 2899 (unknown) (no date) (unknown) All (no value) (units unknown ) (unknown) Result panel 2900 (unknown) (no date) (unknown) All (no value) (units unknown ) (unknown) Result panel 2901 (unknown) (no date) (unknown) All (no value) (units unknown ) (unknown) Result panel 2902 (unknown) (no date) (unknown) All (no value) (units unknown ) (unknown) Result panel 2903 (unknown) (no date) (unknown) All (no value) (units unknown ) (unknown) Result panel 2904 (unknown) (no date) (unknown) All (no value) (units unknown ) (unknown) Result panel 2905 (unknown) (no date) (unknown) All (no value) (units unknown ) (unknown) Result panel 2906 (unknown) (no date) (unknown) All (no value) (units unknown ) (unknown) Result panel 2907 (unknown) (no date) (unknown) All (no value) (units unknown ) (unknown) Result panel 2908 (unknown) (no date) (unknown) All (no value) (units unknown ) (unknown) Result panel 2909 (unknown) (no date) (unknown) All (no value) (units unknown ) (unknown) Result panel 2910 (unknown) (no date) (unknown) All (no value) (units unknown ) (unknown) Result panel 2911 (unknown) (no date) (unknown) All (no value) (units unknown ) (unknown) Result panel 2912 (unknown) (no date) (unknown) All (no value) (units unknown ) (unknown) Result panel 2913 (unknown) (no date) (unknown) All (no value) (units unknown ) (unknown) Result panel 2914 (unknown) (no date) (unknown) All (no value) (units unknown ) (unknown) Result panel 2915 (unknown) (no date) (unknown) All (no value) (units unknown ) (unknown) Result panel 2916 (unknown) (no date) (unknown) All (no value) (units unknown ) (unknown) Result panel 2917 (unknown) (no date) (unknown) All (no value) (units unknown ) (unknown) Result panel 2918 (unknown) (no date) (unknown) All (no value) (units unknown ) (unknown) Result panel 2919 (unknown) (no date) (unknown) All (no value) (units unknown ) (unknown) Result panel 2920 (unknown) (no date) (unknown) All (no value) (units unknown ) (unknown) Result panel 2921 (unknown) (no date) (unknown) All (no value) (units unknown ) (unknown) Result panel 2922 (unknown) (no date) (unknown) All (no value) (units unknown ) (unknown) Result panel 2923 (unknown) (no date) (unknown) All (no value) (units unknown ) (unknown) Result panel 2924 (unknown) (no date) (unknown) All (no value) (units unknown ) (unknown) Result panel 2925 (unknown) (no date) (unknown) All (no value) (units unknown ) (unknown) Result panel 2926 (unknown) (no date) (unknown) All (no value) (units unknown ) (unknown) Result panel 2927 (unknown) (no date) (unknown) All (no value) (units unknown ) (unknown) Result panel 2928 (unknown) (no date) (unknown) All (no value) (units unknown ) (unknown) Result panel 2929 (unknown) (no date) (unknown) All (no value) (units unknown ) (unknown) Result panel 2930 (unknown) (no date) (unknown) All (no value) (units unknown ) (unknown) Result panel 2931 (unknown) (no date) (unknown) All (no value) (units unknown ) (unknown) Result panel 2932 (unknown) (no date) (unknown) All (no value) (units unknown ) (unknown) Result panel 2933 (unknown) (no date) (unknown) All (no value) (units unknown ) (unknown) Result panel 2934 (unknown) (no date) (unknown) All (no value) (units unknown ) (unknown) Result panel 2935 (unknown) (no date) (unknown) All (no value) (units unknown ) (unknown) Result panel 2936 (unknown) (no date) (unknown) All (no value) (units unknown ) (unknown) Result panel 2937 (unknown) (no date) (unknown) All (no value) (units unknown ) (unknown) Result panel 2938 (unknown) (no date) (unknown) All (no value) (units unknown ) (unknown) Result panel 2939 (unknown) (no date) (unknown) All (no value) (units unknown ) (unknown) Result panel 2940 (unknown) (no date) (unknown) All (no value) (units unknown ) (unknown) Result panel 2941 (unknown) (no date) (unknown) All (no value) (units unknown ) (unknown) Result panel 2942 (unknown) (no date) (unknown) All (no value) (units unknown ) (unknown) Result panel 2943 (unknown) (no date) (unknown) All (no value) (units unknown ) (unknown) Result panel 2944 (unknown) (no date) (unknown) All (no value) (units unknown ) (unknown) Result panel 2945 (unknown) (no date) (unknown) All (no value) (units unknown ) (unknown) Result panel 2946 (unknown) (no date) (unknown) All (no value) (units unknown ) (unknown) Result panel 2947 (unknown) (no date) (unknown) All (no value) (units unknown ) (unknown) Result panel 2948 (unknown) (no date) (unknown) All (no value) (units unknown ) (unknown) Result panel 2949 (unknown) (no date) (unknown) All (no value) (units unknown ) (unknown) Result panel 2950 (unknown) (no date) (unknown) All (no value) (units unknown ) (unknown) Result panel 2951 (unknown) (no date) (unknown) All (no value) (units unknown ) (unknown) Result panel 2952 (unknown) (no date) (unknown) All (no value) (units unknown ) (unknown) Result panel 2953 (unknown) (no date) (unknown) All (no value) (units unknown ) (unknown) Result panel 2954 (unknown) (no date) (unknown) All (no value) (units unknown ) (unknown) Result panel 2955 (unknown) (no date) (unknown) All (no value) (units unknown ) (unknown) Result panel 2956 (unknown) (no date) (unknown) All (no value) (units unknown ) (unknown) Result panel 2957 (unknown) (no date) (unknown) All (no value) (units unknown ) (unknown) Result panel 2958 (unknown) (no date) (unknown) All (no value) (units unknown ) (unknown) Result panel 2959 (unknown) (no date) (unknown) All (no value) (units unknown ) (unknown) Result panel 2960 (unknown) (no date) (unknown) All (no value) (units unknown ) (unknown) Result panel 2961 (unknown) (no date) (unknown) All (no value) (units unknown ) (unknown) Result panel 2962 (unknown) (no date) (unknown) All (no value) (units unknown ) (unknown) Result panel 2963 (unknown) (no date) (unknown) All (no value) (units unknown ) (unknown) Result panel 2964 (unknown) (no date) (unknown) All (no value) (units unknown ) (unknown) Result panel 2965 (unknown) (no date) (unknown) All (no value) (units unknown ) (unknown) Result panel 2966 (unknown) (no date) (unknown) All (no value) (units unknown ) (unknown) Result panel 2967 (unknown) (no date) (unknown) All (no value) (units unknown ) (unknown) Result panel 2968 (unknown) (no date) (unknown) All (no value) (units unknown ) (unknown) Result panel 2969 (unknown) (no date) (unknown) All (no value) (units unknown ) (unknown) Result panel 2970 (unknown) (no date) (unknown) All (no value) (units unknown ) (unknown) Result panel 2971 (unknown) (no date) (unknown) All (no value) (units unknown ) (unknown) Result panel 2972 (unknown) (no date) (unknown) All (no value) (units unknown ) (unknown) Result panel 2973 (unknown) (no date) (unknown) All (no value) (units unknown ) (unknown) Result panel 2974 (unknown) (no date) (unknown) All (no value) (units unknown ) (unknown) Result panel 2975 (unknown) (no date) (unknown) All (no value) (units unknown ) (unknown) Result panel 2976 (unknown) (no date) (unknown) All (no value) (units unknown ) (unknown) Result panel 2977 (unknown) (no date) (unknown) All (no value) (units unknown ) (unknown) Result panel 2978 (unknown) (no date) (unknown) All (no value) (units unknown ) (unknown) Result panel 2979 (unknown) (no date) (unknown) All (no value) (units unknown ) (unknown) Result panel 2980 (unknown) (no date) (unknown) All (no value) (units unknown ) (unknown) Result panel 2981 (unknown) (no date) (unknown) All (no value) (units unknown ) (unknown) Result panel 2982 (unknown) (no date) (unknown) All (no value) (units unknown ) (unknown) Result panel 2983 (unknown) (no date) (unknown) All (no value) (units unknown ) (unknown) Result panel 2984 (unknown) (no date) (unknown) All (no value) (units unknown ) (unknown) Result panel 2985 (unknown) (no date) (unknown) All (no value) (units unknown ) (unknown) Result panel 2986 (unknown) (no date) (unknown) All (no value) (units unknown ) (unknown) Result panel 2987 (unknown) (no date) (unknown) All (no value) (units unknown ) (unknown) Result panel 2988 (unknown) (no date) (unknown) All (no value) (units unknown ) (unknown) Result panel 2989 (unknown) (no date) (unknown) All (no value) (units unknown ) (unknown) Result panel 2990 (unknown) (no date) (unknown) All (no value) (units unknown ) (unknown) Result panel 2991 (unknown) (no date) (unknown) All (no value) (units unknown ) (unknown) Result panel 2992 (unknown) (no date) (unknown) All (no value) (units unknown ) (unknown) Result panel 2993 (unknown) (no date) (unknown) All (no value) (units unknown ) (unknown) Result panel 2994 (unknown) (no date) (unknown) All (no value) (units unknown ) (unknown) Result panel 2995 (unknown) (no date) (unknown) All (no value) (units unknown ) (unknown) Result panel 2996 (unknown) (no date) (unknown) All (no value) (units unknown ) (unknown) Result panel 2997 (unknown) (no date) (unknown) All (no value) (units unknown ) (unknown) Result panel 2998 (unknown) (no date) (unknown) All (no value) (units unknown ) (unknown) Result panel 2999 (unknown) (no date) (unknown) All (no value) (units unknown ) (unknown) Result panel 3000 (unknown) (no date) (unknown) All (no value) (units unknown ) (unknown) Result panel 3001 (unknown) (no date) (unknown) All (no value) (units unknown ) (unknown) Result panel 3002 (unknown) (no date) (unknown) All (no value) (units unknown ) (unknown) Result panel 3003 (unknown) (no date) (unknown) All (no value) (units unknown ) (unknown) Result panel 3004 (unknown) (no date) (unknown) All (no value) (units unknown ) (unknown) Result panel 3005 (unknown) (no date) (unknown) All (no value) (units unknown ) (unknown) Result panel 3006 (unknown) (no date) (unknown) All (no value) (units unknown ) (unknown) Result panel 3007 (unknown) (no date) (unknown) All (no value) (units unknown ) (unknown) Result panel 3008 (unknown) (no date) (unknown) All (no value) (units unknown ) (unknown) Result panel 3009 (unknown) (no date) (unknown) All (no value) (units unknown ) (unknown) Result panel 3010 (unknown) (no date) (unknown) All (no value) (units unknown ) (unknown) Result panel 3011 (unknown) (no date) (unknown) All (no value) (units unknown ) (unknown) Result panel 3012 (unknown) (no date) (unknown) All (no value) (units unknown ) (unknown) Result panel 3013 (unknown) (no date) (unknown) All (no value) (units unknown ) (unknown) Result panel 3014 (unknown) (no date) (unknown) All (no value) (units unknown ) (unknown) Result panel 3015 (unknown) (no date) (unknown) All (no value) (units unknown ) (unknown) Result panel 3016 (unknown) (no date) (unknown) All (no value) (units unknown ) (unknown) Result panel 3017 (unknown) (no date) (unknown) All (no value) (units unknown ) (unknown) Result panel 3018 (unknown) (no date) (unknown) All (no value) (units unknown ) (unknown) Result panel 3019 (unknown) (no date) (unknown) All (no value) (units unknown ) (unknown) Result panel 3020 (unknown) (no date) (unknown) All (no value) (units unknown ) (unknown) Result panel 3021 (unknown) (no date) (unknown) All (no value) (units unknown ) (unknown) Result panel 3022 (unknown) (no date) (unknown) All (no value) (units unknown ) (unknown) Result panel 3023 (unknown) (no date) (unknown) All (no value) (units unknown ) (unknown) Result panel 3024 (unknown) (no date) (unknown) All (no value) (units unknown ) (unknown) Result panel 3025 (unknown) (no date) (unknown) All (no value) (units unknown ) (unknown) Result panel 3026 (unknown) (no date) (unknown) All (no value) (units unknown ) (unknown) Result panel 3027 (unknown) (no date) (unknown) All (no value) (units unknown ) (unknown) Result panel 3028 (unknown) (no date) (unknown) All (no value) (units unknown ) (unknown) Result panel 3029 (unknown) (no date) (unknown) All (no value) (units unknown ) (unknown) Result panel 3030 (unknown) (no date) (unknown) All (no value) (units unknown ) (unknown) Result panel 3031 (unknown) (no date) (unknown) All (no value) (units unknown ) (unknown) Result panel 3032 (unknown) (no date) (unknown) All (no value) (units unknown ) (unknown) Result panel 3033 (unknown) (no date) (unknown) All (no value) (units unknown ) (unknown) Result panel 3034 (unknown) (no date) (unknown) All (no value) (units unknown ) (unknown) Result panel 3035 (unknown) (no date) (unknown) All (no value) (units unknown ) (unknown) Result panel 3036 (unknown) (no date) (unknown) All (no value) (units unknown ) (unknown) Result panel 3037 (unknown) (no date) (unknown) All (no value) (units unknown ) (unknown) Result panel 3038 (unknown) (no date) (unknown) All (no value) (units unknown ) (unknown) Result panel 3039 (unknown) (no date) (unknown) All (no value) (units unknown ) (unknown) Result panel 3040 (unknown) (no date) (unknown) All (no value) (units unknown ) (unknown) Result panel 3041 (unknown) (no date) (unknown) All (no value) (units unknown ) (unknown) Result panel 3042 (unknown) (no date) (unknown) All (no value) (units unknown ) (unknown) Result panel 3043 (unknown) (no date) (unknown) All (no value) (units unknown ) (unknown) Result panel 3044 (unknown) (no date) (unknown) All (no value) (units unknown ) (unknown) Result panel 3045 (unknown) (no date) (unknown) All (no value) (units unknown ) (unknown) Result panel 3046 (unknown) (no date) (unknown) All (no value) (units unknown ) (unknown) Result panel 3047 (unknown) (no date) (unknown) All (no value) (units unknown ) (unknown) Result panel 3048 (unknown) (no date) (unknown) All (no value) (units unknown ) (unknown) Result panel 3049 (unknown) (no date) (unknown) All (no value) (units unknown ) (unknown) Result panel 3050 (unknown) (no date) (unknown) All (no value) (units unknown ) (unknown) Result panel 3051 (unknown) (no date) (unknown) All (no value) (units unknown ) (unknown) Result panel 3052 (unknown) (no date) (unknown) All (no value) (units unknown ) (unknown) Result panel 3053 (unknown) (no date) (unknown) All (no value) (units unknown ) (unknown) Result panel 3054 (unknown) (no date) (unknown) All (no value) (units unknown ) (unknown) Result panel 3055 (unknown) (no date) (unknown) All (no value) (units unknown ) (unknown) Result panel 3056 (unknown) (no date) (unknown) All (no value) (units unknown ) (unknown) Result panel 3057 (unknown) (no date) (unknown) All (no value) (units unknown ) (unknown) Result panel 3058 (unknown) (no date) (unknown) All (no value) (units unknown ) (unknown) Result panel 3059 (unknown) (no date) (unknown) All (no value) (units unknown ) (unknown) Result panel 3060 (unknown) (no date) (unknown) All (no value) (units unknown ) (unknown) Result panel 3061 (unknown) (no date) (unknown) All (no value) (units unknown ) (unknown) Result panel 3062 (unknown) (no date) (unknown) All (no value) (units unknown ) (unknown) Result panel 3063 (unknown) (no date) (unknown) All (no value) (units unknown ) (unknown) Result panel 3064 (unknown) (no date) (unknown) All (no value) (units unknown ) (unknown) Result panel 3065 (unknown) (no date) (unknown) All (no value) (units unknown ) (unknown) Result panel 3066 (unknown) (no date) (unknown) All (no value) (units unknown ) (unknown) Result panel 3067 (unknown) (no date) (unknown) All (no value) (units unknown ) (unknown) Result panel 3068 (unknown) (no date) (unknown) All (no value) (units unknown ) (unknown) Result panel 3069 (unknown) (no date) (unknown) All (no value) (units unknown ) (unknown) Result panel 3070 (unknown) (no date) (unknown) All (no value) (units unknown ) (unknown) Result panel 3071 (unknown) (no date) (unknown) All (no value) (units unknown ) (unknown) Result panel 3072 (unknown) (no date) (unknown) All (no value) (units unknown ) (unknown) Result panel 3073 (unknown) (no date) (unknown) All (no value) (units unknown ) (unknown) Result panel 3074 (unknown) (no date) (unknown) All (no value) (units unknown ) (unknown) Result panel 3075 (unknown) (no date) (unknown) All (no value) (units unknown ) (unknown) Result panel 3076 (unknown) (no date) (unknown) All (no value) (units unknown ) (unknown) Result panel 3077 (unknown) (no date) (unknown) All (no value) (units unknown ) (unknown) Result panel 3078 (unknown) (no date) (unknown) All (no value) (units unknown ) (unknown) Result panel 3079 (unknown) (no date) (unknown) All (no value) (units unknown ) (unknown) Result panel 3080 (unknown) (no date) (unknown) All (no value) (units unknown ) (unknown) Result panel 3081 (unknown) (no date) (unknown) All (no value) (units unknown ) (unknown) Result panel 3082 (unknown) (no date) (unknown) All (no value) (units unknown ) (unknown) Result panel 3083 (unknown) (no date) (unknown) All (no value) (units unknown ) (unknown) Result panel 3084 (unknown) (no date) (unknown) All (no value) (units unknown ) (unknown) Result panel 3085 (unknown) (no date) (unknown) All (no value) (units unknown ) (unknown) Result panel 3086 (unknown) (no date) (unknown) All (no value) (units unknown ) (unknown) Result panel 3087 (unknown) (no date) (unknown) All (no value) (units unknown ) (unknown) Result panel 3088 (unknown) (no date) (unknown) All (no value) (units unknown ) (unknown) Result panel 3089 (unknown) (no date) (unknown) All (no value) (units unknown ) (unknown) Result panel 3090 (unknown) (no date) (unknown) All (no value) (units unknown ) (unknown) Result panel 3091 (unknown) (no date) (unknown) All (no value) (units unknown ) (unknown) Result panel 3092 (unknown) (no date) (unknown) All (no value) (units unknown ) (unknown) Result panel 3093 (unknown) (no date) (unknown) All (no value) (units unknown ) (unknown) Result panel 3094 (unknown) (no date) (unknown) All (no value) (units unknown ) (unknown) Result panel 3095 (unknown) (no date) (unknown) All (no value) (units unknown ) (unknown) Result panel 3096 (unknown) (no date) (unknown) All (no value) (units unknown ) (unknown) Result panel 3097 (unknown) (no date) (unknown) All (no value) (units unknown ) (unknown) Result panel 3098 (unknown) (no date) (unknown) All (no value) (units unknown ) (unknown) Result panel 3099 (unknown) (no date) (unknown) All (no value) (units unknown ) (unknown) Result panel 3100 (unknown) (no date) (unknown) All (no value) (units unknown ) (unknown) Result panel 3101 (unknown) (no date) (unknown) All (no value) (units unknown ) (unknown) Result panel 3102 (unknown) (no date) (unknown) All (no value) (units unknown ) (unknown) Result panel 3103 (unknown) (no date) (unknown) All (no value) (units unknown ) (unknown) Result panel 3104 (unknown) (no date) (unknown) All (no value) (units unknown ) (unknown) Result panel 3105 (unknown) (no date) (unknown) All (no value) (units unknown ) (unknown) Result panel 3106 (unknown) (no date) (unknown) All (no value) (units unknown ) (unknown) Result panel 3107 (unknown) (no date) (unknown) All (no value) (units unknown ) (unknown) Result panel 3108 (unknown) (no date) (unknown) All (no value) (units unknown ) (unknown) Result panel 3109 (unknown) (no date) (unknown) All (no value) (units unknown ) (unknown) Result panel 3110 (unknown) (no date) (unknown) All (no value) (units unknown ) (unknown) Result panel 3111 (unknown) (no date) (unknown) All (no value) (units unknown ) (unknown) Result panel 3112 (unknown) (no date) (unknown) All (no value) (units unknown ) (unknown) Result panel 3113 (unknown) (no date) (unknown) All (no value) (units unknown ) (unknown) Result panel 3114 (unknown) (no date) (unknown) All (no value) (units unknown ) (unknown) Result panel 3115 (unknown) (no date) (unknown) All (no value) (units unknown ) (unknown) Result panel 3116 (unknown) (no date) (unknown) All (no value) (units unknown ) (unknown) Result panel 3117 (unknown) (no date) (unknown) All (no value) (units unknown ) (unknown) Result panel 3118 (unknown) (no date) (unknown) All (no value) (units unknown ) (unknown) Result panel 3119 (unknown) (no date) (unknown) All (no value) (units unknown ) (unknown) Result panel 3120 (unknown) (no date) (unknown) All (no value) (units unknown ) (unknown) Result panel 3121 (unknown) (no date) (unknown) All (no value) (units unknown ) (unknown) Result panel 3122 (unknown) (no date) (unknown) All (no value) (units unknown ) (unknown) Result panel 3123 (unknown) (no date) (unknown) All (no value) (units unknown ) (unknown) Result panel 3124 (unknown) (no date) (unknown) All (no value) (units unknown ) (unknown) Result panel 3125 (unknown) (no date) (unknown) All (no value) (units unknown ) (unknown) Result panel 3126 (unknown) (no date) (unknown) All (no value) (units unknown ) (unknown) Result panel 3127 (unknown) (no date) (unknown) All (no value) (units unknown ) (unknown) Result panel 3128 (unknown) (no date) (unknown) All (no value) (units unknown ) (unknown) Result panel 3129 (unknown) (no date) (unknown) All (no value) (units unknown ) (unknown) Result panel 3130 (unknown) (no date) (unknown) All (no value) (units unknown ) (unknown) Result panel 3131 (unknown) (no date) (unknown) All (no value) (units unknown ) (unknown) Result panel 3132 (unknown) (no date) (unknown) All (no value) (units unknown ) (unknown) Result panel 3133 (unknown) (no date) (unknown) All (no value) (units unknown ) (unknown) Result panel 3134 (unknown) (no date) (unknown) All (no value) (units unknown ) (unknown) Result panel 3135 (unknown) (no date) (unknown) All (no value) (units unknown ) (unknown) Result panel 3136 (unknown) (no date) (unknown) All (no value) (units unknown ) (unknown) Result panel 3137 (unknown) (no date) (unknown) All (no value) (units unknown ) (unknown) Result panel 3138 (unknown) (no date) (unknown) All (no value) (units unknown ) (unknown) Result panel 3139 (unknown) (no date) (unknown) All (no value) (units unknown ) (unknown) Result panel 3140 (unknown) (no date) (unknown) All (no value) (units unknown ) (unknown) Result panel 3141 (unknown) (no date) (unknown) All (no value) (units unknown ) (unknown) Result panel 3142 (unknown) (no date) (unknown) All (no value) (units unknown ) (unknown) Result panel 3143 (unknown) (no date) (unknown) All (no value) (units unknown ) (unknown) Result panel 3144 (unknown) (no date) (unknown) All (no value) (units unknown ) (unknown) Result panel 3145 (unknown) (no date) (unknown) All (no value) (units unknown ) (unknown) Result panel 3146 (unknown) (no date) (unknown) All (no value) (units unknown ) (unknown) Result panel 3147 (unknown) (no date) (unknown) All (no value) (units unknown ) (unknown) Result panel 3148 (unknown) (no date) (unknown) All (no value) (units unknown ) (unknown) Result panel 3149 (unknown) (no date) (unknown) All (no value) (units unknown ) (unknown) Result panel 3150 (unknown) (no date) (unknown) All (no value) (units unknown ) (unknown) Result panel 3151 (unknown) (no date) (unknown) All (no value) (units unknown ) (unknown) Result panel 3152 (unknown) (no date) (unknown) All (no value) (units unknown ) (unknown) Result panel 3153 (unknown) (no date) (unknown) All (no value) (units unknown ) (unknown) Result panel 3154 (unknown) (no date) (unknown) All (no value) (units unknown ) (unknown) Result panel 3155 (unknown) (no date) (unknown) All (no value) (units unknown ) (unknown) Result panel 3156 (unknown) (no date) (unknown) All (no value) (units unknown ) (unknown) Result panel 3157 (unknown) (no date) (unknown) All (no value) (units unknown ) (unknown) Result panel 3158 (unknown) (no date) (unknown) All (no value) (units unknown ) (unknown) Result panel 3159 (unknown) (no date) (unknown) All (no value) (units unknown ) (unknown) Result panel 3160 (unknown) (no date) (unknown) All (no value) (units unknown ) (unknown) Result panel 3161 (unknown) (no date) (unknown) All (no value) (units unknown ) (unknown) Result panel 3162 (unknown) (no date) (unknown) All (no value) (units unknown ) (unknown) Result panel 3163 (unknown) (no date) (unknown) All (no value) (units unknown ) (unknown) Result panel 3164 (unknown) (no date) (unknown) All (no value) (units unknown ) (unknown) Result panel 3165 (unknown) (no date) (unknown) All (no value) (units unknown ) (unknown) Result panel 3166 (unknown) (no date) (unknown) All (no value) (units unknown ) (unknown) Result panel 3167 (unknown) (no date) (unknown) All (no value) (units unknown ) (unknown) Result panel 3168 (unknown) (no date) (unknown) All (no value) (units unknown ) (unknown) Result panel 3169 (unknown) (no date) (unknown) All (no value) (units unknown ) (unknown) Result panel 3170 (unknown) (no date) (unknown) All (no value) (units unknown ) (unknown) Result panel 3171 (unknown) (no date) (unknown) All (no value) (units unknown ) (unknown) Result panel 3172 (unknown) (no date) (unknown) All (no value) (units unknown ) (unknown) Result panel 3173 (unknown) (no date) (unknown) All (no value) (units unknown ) (unknown) Result panel 3174 (unknown) (no date) (unknown) All (no value) (units unknown ) (unknown) Result panel 3175 (unknown) (no date) (unknown) All (no value) (units unknown ) (unknown) Result panel 3176 (unknown) (no date) (unknown) All (no value) (units unknown ) (unknown) Result panel 3177 (unknown) (no date) (unknown) All (no value) (units unknown ) (unknown) Result panel 3178 (unknown) (no date) (unknown) All (no value) (units unknown ) (unknown) Result panel 3179 (unknown) (no date) (unknown) All (no value) (units unknown ) (unknown) Result panel 3180 (unknown) (no date) (unknown) All (no value) (units unknown ) (unknown) Result panel 3181 (unknown) (no date) (unknown) All (no value) (units unknown ) (unknown) Result panel 3182 (unknown) (no date) (unknown) All (no value) (units unknown ) (unknown) Result panel 3183 (unknown) (no date) (unknown) All (no value) (units unknown ) (unknown) Result panel 3184 (unknown) (no date) (unknown) All (no value) (units unknown ) (unknown) Result panel 3185 (unknown) (no date) (unknown) All (no value) (units unknown ) (unknown) Result panel 3186 (unknown) (no date) (unknown) All (no value) (units unknown ) (unknown) Result panel 3187 (unknown) (no date) (unknown) All (no value) (units unknown ) (unknown) Result panel 3188 (unknown) (no date) (unknown) All (no value) (units unknown ) (unknown) Result panel 3189 (unknown) (no date) (unknown) All (no value) (units unknown ) (unknown) Result panel 3190 (unknown) (no date) (unknown) All (no value) (units unknown ) (unknown) Result panel 3191 (unknown) (no date) (unknown) All (no value) (units unknown ) (unknown) Result panel 3192 (unknown) (no date) (unknown) All (no value) (units unknown ) (unknown) Result panel 3193 (unknown) (no date) (unknown) All (no value) (units unknown ) (unknown) Result panel 3194 (unknown) (no date) (unknown) All (no value) (units unknown ) (unknown) Result panel 3195 (unknown) (no date) (unknown) All (no value) (units unknown ) (unknown) Result panel 3196 (unknown) (no date) (unknown) All (no value) (units unknown ) (unknown) Result panel 3197 (unknown) (no date) (unknown) All (no value) (units unknown ) (unknown) Result panel 3198 (unknown) (no date) (unknown) All (no value) (units unknown ) (unknown) Result panel 3199 (unknown) (no date) (unknown) All (no value) (units unknown ) (unknown) Result panel 3200 (unknown) (no date) (unknown) All (no value) (units unknown ) (unknown) Result panel 3201 (unknown) (no date) (unknown) All (no value) (units unknown ) (unknown) Result panel 3202 (unknown) (no date) (unknown) All (no value) (units unknown ) (unknown) Result panel 3203 (unknown) (no date) (unknown) All (no value) (units unknown ) (unknown) Result panel 3204 (unknown) (no date) (unknown) All (no value) (units unknown ) (unknown) Result panel 3205 (unknown) (no date) (unknown) All (no value) (units unknown ) (unknown) Result panel 3206 (unknown) (no date) (unknown) All (no value) (units unknown ) (unknown) Result panel 3207 (unknown) (no date) (unknown) All (no value) (units unknown ) (unknown) Result panel 3208 (unknown) (no date) (unknown) All (no value) (units unknown ) (unknown) Result panel 3209 (unknown) (no date) (unknown) All (no value) (units unknown ) (unknown) Result panel 3210 (unknown) (no date) (unknown) All (no value) (units unknown ) (unknown) Result panel 3211 (unknown) (no date) (unknown) All (no value) (units unknown ) (unknown) Result panel 3212 (unknown) (no date) (unknown) All (no value) (units unknown ) (unknown) Result panel 3213 (unknown) (no date) (unknown) All (no value) (units unknown ) (unknown) Result panel 3214 (unknown) (no date) (unknown) All (no value) (units unknown ) (unknown) Result panel 3215 (unknown) (no date) (unknown) All (no value) (units unknown ) (unknown) Result panel 3216 (unknown) (no date) (unknown) All (no value) (units unknown ) (unknown) Result panel 3217 (unknown) (no date) (unknown) All (no value) (units unknown ) (unknown) Result panel 3218 (unknown) (no date) (unknown) All (no value) (units unknown ) (unknown) Result panel 3219 (unknown) (no date) (unknown) All (no value) (units unknown ) (unknown) Result panel 3220 (unknown) (no date) (unknown) All (no value) (units unknown ) (unknown) Result panel 3221 (unknown) (no date) (unknown) All (no value) (units unknown ) (unknown) Result panel 3222 (unknown) (no date) (unknown) All (no value) (units unknown ) (unknown) Result panel 3223 (unknown) (no date) (unknown) All (no value) (units unknown ) (unknown) Result panel 3224 (unknown) (no date) (unknown) All (no value) (units unknown ) (unknown) Result panel 3225 (unknown) (no date) (unknown) All (no value) (units unknown ) (unknown) Result panel 3226 (unknown) (no date) (unknown) All (no value) (units unknown ) (unknown) Result panel 3227 (unknown) (no date) (unknown) All (no value) (units unknown ) (unknown) Result panel 3228 (unknown) (no date) (unknown) All (no value) (units unknown ) (unknown) Result panel 3229 (unknown) (no date) (unknown) All (no value) (units unknown ) (unknown) Result panel 3230 (unknown) (no date) (unknown) All (no value) (units unknown ) (unknown) Result panel 3231 (unknown) (no date) (unknown) All (no value) (units unknown ) (unknown) Result panel 3232 (unknown) (no date) (unknown) All (no value) (units unknown ) (unknown) Result panel 3233 (unknown) (no date) (unknown) All (no value) (units unknown ) (unknown) Result panel 3234 (unknown) (no date) (unknown) All (no value) (units unknown ) (unknown) Result panel 3235 (unknown) (no date) (unknown) All (no value) (units unknown ) (unknown) Result panel 3236 (unknown) (no date) (unknown) All (no value) (units unknown ) (unknown) Result panel 3237 (unknown) (no date) (unknown) All (no value) (units unknown ) (unknown) Result panel 3238 (unknown) (no date) (unknown) All (no value) (units unknown ) (unknown) Result panel 3239 (unknown) (no date) (unknown) All (no value) (units unknown ) (unknown) Result panel 3240 (unknown) (no date) (unknown) All (no value) (units unknown ) (unknown) Result panel 3241 (unknown) (no date) (unknown) All (no value) (units unknown ) (unknown) Result panel 3242 (unknown) (no date) (unknown) All (no value) (units unknown ) (unknown) Result panel 3243 (unknown) (no date) (unknown) All (no value) (units unknown ) (unknown) Result panel 3244 (unknown) (no date) (unknown) All (no value) (units unknown ) (unknown) Result panel 3245 (unknown) (no date) (unknown) All (no value) (units unknown ) (unknown) Result panel 3246 (unknown) (no date) (unknown) All (no value) (units unknown ) (unknown) Result panel 3247 (unknown) (no date) (unknown) All (no value) (units unknown ) (unknown) Result panel 3248 (unknown) (no date) (unknown) All (no value) (units unknown ) (unknown) Result panel 3249 (unknown) (no date) (unknown) All (no value) (units unknown ) (unknown) Result panel 3250 (unknown) (no date) (unknown) All (no value) (units unknown ) (unknown) Result panel 3251 (unknown) (no date) (unknown) All (no value) (units unknown ) (unknown) Result panel 3252 (unknown) (no date) (unknown) All (no value) (units unknown ) (unknown) Result panel 3253 (unknown) (no date) (unknown) All (no value) (units unknown ) (unknown) Result panel 3254 (unknown) (no date) (unknown) All (no value) (units unknown ) (unknown) Result panel 3255 (unknown) (no date) (unknown) All (no value) (units unknown ) (unknown) Result panel 3256 (unknown) (no date) (unknown) All (no value) (units unknown ) (unknown) Result panel 3257 (unknown) (no date) (unknown) All (no value) (units unknown ) (unknown) Result panel 3258 (unknown) (no date) (unknown) All (no value) (units unknown ) (unknown) Result panel 3259 (unknown) (no date) (unknown) All (no value) (units unknown ) (unknown) Result panel 3260 (unknown) (no date) (unknown) All (no value) (units unknown ) (unknown) Result panel 3261 (unknown) (no date) (unknown) All (no value) (units unknown ) (unknown) Result panel 3262 (unknown) (no date) (unknown) All (no value) (units unknown ) (unknown) Result panel 3263 (unknown) (no date) (unknown) All (no value) (units unknown ) (unknown) Result panel 3264 (unknown) (no date) (unknown) All (no value) (units unknown ) (unknown) Result panel 3265 (unknown) (no date) (unknown) All (no value) (units unknown ) (unknown) Result panel 3266 (unknown) (no date) (unknown) All (no value) (units unknown ) (unknown) Result panel 3267 (unknown) (no date) (unknown) All (no value) (units unknown ) (unknown) Result panel 3268 (unknown) (no date) (unknown) All (no value) (units unknown ) (unknown) Result panel 3269 (unknown) (no date) (unknown) All (no value) (units unknown ) (unknown) Result panel 3270 (unknown) (no date) (unknown) All (no value) (units unknown ) (unknown) Result panel 3271 (unknown) (no date) (unknown) All (no value) (units unknown ) (unknown) Result panel 3272 (unknown) (no date) (unknown) All (no value) (units unknown ) (unknown) Result panel 3273 (unknown) (no date) (unknown) All (no value) (units unknown ) (unknown) Result panel 3274 (unknown) (no date) (unknown) All (no value) (units unknown ) (unknown) Result panel 3275 (unknown) (no date) (unknown) All (no value) (units unknown ) (unknown) Result panel 3276 (unknown) (no date) (unknown) All (no value) (units unknown ) (unknown) Result panel 3277 (unknown) (no date) (unknown) All (no value) (units unknown ) (unknown) Result panel 3278 (unknown) (no date) (unknown) All (no value) (units unknown ) (unknown) Result panel 3279 (unknown) (no date) (unknown) All (no value) (units unknown ) (unknown) Result panel 3280 (unknown) (no date) (unknown) All (no value) (units unknown ) (unknown) Result panel 3281 (unknown) (no date) (unknown) All (no value) (units unknown ) (unknown) Result panel 3282 (unknown) (no date) (unknown) All (no value) (units unknown ) (unknown) Result panel 3283 (unknown) (no date) (unknown) All (no value) (units unknown ) (unknown) Result panel 3284 (unknown) (no date) (unknown) All (no value) (units unknown ) (unknown) Result panel 3285 (unknown) (no date) (unknown) All (no value) (units unknown ) (unknown) Result panel 3286 (unknown) (no date) (unknown) All (no value) (units unknown ) (unknown) Result panel 3287 (unknown) (no date) (unknown) All (no value) (units unknown ) (unknown) Result panel 3288 (unknown) (no date) (unknown) All (no value) (units unknown ) (unknown) Result panel 3289 (unknown) (no date) (unknown) All (no value) (units unknown ) (unknown) Result panel 3290 (unknown) (no date) (unknown) All (no value) (units unknown ) (unknown) Result panel 3291 (unknown) (no date) (unknown) All (no value) (units unknown ) (unknown) Result panel 3292 (unknown) (no date) (unknown) All (no value) (units unknown ) (unknown) Result panel 3293 (unknown) (no date) (unknown) All (no value) (units unknown ) (unknown) Result panel 3294 (unknown) (no date) (unknown) All (no value) (units unknown ) (unknown) Result panel 3295 (unknown) (no date) (unknown) All (no value) (units unknown ) (unknown) Result panel 3296 (unknown) (no date) (unknown) All (no value) (units unknown ) (unknown) Result panel 3297 (unknown) (no date) (unknown) All (no value) (units unknown ) (unknown) Result panel 3298 (unknown) (no date) (unknown) All (no value) (units unknown ) (unknown) Result panel 3299 (unknown) (no date) (unknown) All (no value) (units unknown ) (unknown) Result panel 3300 (unknown) (no date) (unknown) All (no value) (units unknown ) (unknown) Result panel 3301 (unknown) (no date) (unknown) All (no value) (units unknown ) (unknown) Result panel 3302 (unknown) (no date) (unknown) All (no value) (units unknown ) (unknown) Result panel 3303 (unknown) (no date) (unknown) All (no value) (units unknown ) (unknown) Result panel 3304 (unknown) (no date) (unknown) All (no value) (units unknown ) (unknown) Result panel 3305 (unknown) (no date) (unknown) All (no value) (units unknown ) (unknown) Result panel 3306 (unknown) (no date) (unknown) All (no value) (units unknown ) (unknown) Result panel 3307 (unknown) (no date) (unknown) All (no value) (units unknown ) (unknown) Result panel 3308 (unknown) (no date) (unknown) All (no value) (units unknown ) (unknown) Result panel 3309 (unknown) (no date) (unknown) All (no value) (units unknown ) (unknown) Result panel 3310 (unknown) (no date) (unknown) All (no value) (units unknown ) (unknown) Result panel 3311 (unknown) (no date) (unknown) All (no value) (units unknown ) (unknown) Result panel 3312 (unknown) (no date) (unknown) All (no value) (units unknown ) (unknown) Result panel 3313 (unknown) (no date) (unknown) All (no value) (units unknown ) (unknown) Result panel 3314 (unknown) (no date) (unknown) All (no value) (units unknown ) (unknown) Result panel 3315 (unknown) (no date) (unknown) All (no value) (units unknown ) (unknown) Result panel 3316 (unknown) (no date) (unknown) All (no value) (units unknown ) (unknown) Result panel 3317 (unknown) (no date) (unknown) All (no value) (units unknown ) (unknown) Result panel 3318 (unknown) (no date) (unknown) All (no value) (units unknown ) (unknown) Result panel 3319 (unknown) (no date) (unknown) All (no value) (units unknown ) (unknown) Result panel 3320 (unknown) (no date) (unknown) All (no value) (units unknown ) (unknown) Result panel 3321 (unknown) (no date) (unknown) All (no value) (units unknown ) (unknown) Result panel 3322 (unknown) (no date) (unknown) All (no value) (units unknown ) (unknown) Result panel 3323 (unknown) (no date) (unknown) All (no value) (units unknown ) (unknown) Result panel 3324 (unknown) (no date) (unknown) All (no value) (units unknown ) (unknown) Result panel 3325 (unknown) (no date) (unknown) All (no value) (units unknown ) (unknown) Result panel 3326 (unknown) (no date) (unknown) All (no value) (units unknown ) (unknown) Result panel 3327 (unknown) (no date) (unknown) All (no value) (units unknown ) (unknown) Result panel 3328 (unknown) (no date) (unknown) All (no value) (units unknown ) (unknown) Result panel 3329 (unknown) (no date) (unknown) All (no value) (units unknown ) (unknown) Result panel 3330 (unknown) (no date) (unknown) All (no value) (units unknown ) (unknown) Result panel 3331 (unknown) (no date) (unknown) All (no value) (units unknown ) (unknown) Result panel 3332 (unknown) (no date) (unknown) All (no value) (units unknown ) (unknown) Social History No information. Vital Signs No information.
--- NOTE | 2022-06-04 20:02 | ED Physician Documentation ---
History of Present Illness - Stated complaint Stated Complaint: FEVER,C+ - Chief complaint Chief Complaint: Fever - History obtained from History obtained from: EMS - History of Present Illness Timing: Today Pain level max: 0 Pain level now: 0 - Additonal information Additional information: 67-year-old male with dementia lives at [facility]. Brought in for fever today. About 2 weeks ago was positive for COVID, no reported cough. Does have a chronic Lara. Patient unable to give any history. Review of Systems Unable to obtain: Dementia PD PAST MEDICAL HISTORY - Past Medical History Cardiovascular: Hypertension, High cholesterol Respiratory: Pneumonia Neuro: Dementia, Cerebral palsy, CVA, Other Endocrine/Autoimmune: Type 2 diabetes GI: None : Benign prostate hypertrophy, Retention, Chronic bladder infection, Renal insuffiency, Indwelling catheter HEENT: Chronic vision loss Psych: Depression, Anxiety Musculoskeletal: Fatigue, Chronic back pain Derm: None - Past Surgical History Past Surgical History: Yes - Present Medications Home Medications: Ambulatory Orders Medication Instructions Recorded Confirmed Doxazosin [Cardura] 1 mg PO QPM #30 tablet 08/27/18 05/06/22 Tamsulosin [Flomax] 0.4 mg PO DAILY #30 capsule 08/27/18 05/06/22 Insulin Glargine,Hum.rec.anlog 24 unit SUBQ DAILY 03/06/19 05/07/22 [Basaglar Luisikpen U-100] Acetaminophen 650 mg PO Q4HR PRN 03/07/19 05/06/22 Aspirin 325 mg PO DAILY 03/07/19 05/06/22 Atorvastatin Calcium 80 mg PO QPM 03/07/19 05/06/22 Clopidogrel [Plavix] 75 mg PO DAILY 03/07/19 05/06/22 Thiamine [Vitamin B-1] 100 mg PO DAILY 03/07/19 05/06/22 ondansetron HCL [Zofran] 8 mg PO Q8H PRN 03/07/19 05/07/22 Lisinopril [Zestril] 20 mg DAILY 09/03/19 05/06/22 Citalopram [CeleXA] 20 mg PO DAILY 12/16/19 05/06/22 Calcium Carbonate [Tums (Calcium 500 - 1,000 mg PO Q2H PRN 10/30/20 05/06/22 Carbonate 500mg)] Insulin Aspart [NovoLOG] 2 - 12 unit SUBQ TIDWM 10/30/20 05/07/22 Insulin Aspart [NovoLOG] 7 unit SUBQ TIDWM 10/30/20 05/07/22 Omeprazole [PriLOSEC] 20 mg PO DAILY 10/30/20 05/06/22 Amlodipine Besylate [Norvasc] 10 mg PO DAILY 09/21/21 05/06/22 Sulfamethox/Trimeth 800/160 1 tab PO BID 05/07/22 05/07/22 [Bactrim Ds] Saccharomyces Boulardii [Florastor] 250 mg PO BIDWM 7 Days #14 cap 05/09/22 cefUROXime axetiL [Ceftin] 500 mg PO BID 7 Days #28 tab 05/09/22 - Allergies Allergies/Adverse Reactions: Allergies Allergy/AdvReac Type Severity Reaction Status Date / Time No Known Drug Allergies Allergy Verified 05/04/22 14:32 - Social History Does the pt smoke?: No Smoking Status: Former smoker Does the pt drink ETOH?: No Does the pt have substance abuse?: Yes - Immunizations Immunizations are current?: Yes - POLST Patient has POLST: Yes POLST Status: Full Code PD ED PE NORMAL - Vitals Vital signs reviewed: Yes - General General: No acute distress, Well developed/nourished, Other (alert, oriented to place and person) - HEENT HEENT: PERRL, Ears normal, Moist mucous membranes, Pharynx benign - Neck Neck: Supple, no meningeal sign - Cardiac Cardiac: RRR, Strong equal pulses - Respiratory Respiratory: No respiratory distress, Clear bilaterally - Abdomen Abdomen: Soft, Non tender, Non distended - Derm Derm: Warm and dry - Extremities Extremities: No calf tenderness / cord, Other (lara in place) - Neuro Neuro: Other (alert) Results - Vitals Vitals: Vital Signs - 24 hr 06/04/22 06/04/22 19:23 21:38 Temperature 39.7 C H 38.5 C H Heart Rate 104 H 96 Respiratory 22 22 Rate Blood Pressure 119/75 105/74 O2 Saturation 96 95 Oxygen O2 Source [] Nasal cannula O2 Source Room air - EKG (time done) 1935 Rate: Rate (enter#) (98) Rhythm: NSR [place]: Normal Intervals: Prolonged NM QRS: Normal Ischemia: Normal ST segments - Labs Labs: Laboratory Tests 06/04/22 06/04/22 06/04/22 19:20 19:45 19:45 WBC 14.9 H RBC 4.19 L Hgb 12.3 L Hct 37.2 L MCV 88.8 MCH 29.4 MCHC 33.1 RDW 12.7 Plt Count 296 MPV 11.1 Neut # (Auto) 13.4 H Lymph # (Auto) 0.8 L Early # (Auto) 0.7 Eos # (Auto) 0.0 Baso # (Auto) 0.0 Absolute Nucleated RBC 0.00 Nucleated RBC % 0.0 Sodium 137 Potassium 4.0 Chloride 103 Carbon Dioxide 24 Anion Gap 10.0 BUN 28 H Creatinine 1.4 H Estimated GFR (MDRD) 50 L Glucose 115 H Lactic Acid Calcium 9.2 Total Bilirubin 0.8 AST 18 ALT 18 Alkaline Phosphatase 66 Total Protein 8.1 Albumin 3.5 Globulin 4.6 H Albumin/Globulin Ratio 0.8 L Lipase 25 Urine Color Urine Clarity Urine pH Ur Specific [place] Urine Protein Urine Glucose (UA) Urine Ketones Urine Occult Blood Urine Nitrite Urine Bilirubin Urine Urobilinogen Ur Leukocyte Esterase Urine RBC Urine WBC Ur Squamous Epith Cells Urine Bacteria Ur Microscopic Review Urine Culture Comments Nasal Adenovirus (PCR) NOT DETECTED Nasal B. parapertussis DNA (PCR) NOT DETECTED Nasal Coronavir 229E PCR NOT DETECTED Nasal Coronavir HKU1 PCR NOT DETECTED Nasal Coronavir NL63 PCR NOT DETECTED Nasal Coronavir OC43 PCR NOT DETECTED Nasal Enterovir/Rhinovir PCR NOT DETECTED Nasal Influenza B PCR NOT DETECTED Nasal Influenza A PCR NOT DETECTED Nasal Parainfluen 1 PCR NOT DETECTED Nasal Parainfluen 2 PCR NOT DETECTED Nasal Parainfluen 3 PCR NOT DETECTED Nasal Parainfluen 4 PCR NOT DETECTED Nasal RSV (PCR) NOT DETECTED Nasal B.pertussis DNA PCR NOT DETECTED Nasal C.pneumoniae (PCR) NOT DETECTED Raz Human Metapneumo PCR NOT DETECTED Nasal M.pneumoniae (PCR) NOT DETECTED Nasal SARS-CoV-2 (PCR) NOT DETECTED 06/04/22 06/04/22 19:45 20:27 WBC RBC Hgb Hct MCV MCH MCHC RDW Plt Count MPV Neut # (Auto) Lymph # (Auto) Early # (Auto) Eos # (Auto) Baso # (Auto) Absolute Nucleated RBC Nucleated RBC % Sodium Potassium Chloride Carbon Dioxide Anion Gap BUN Creatinine Estimated GFR (MDRD) Glucose Lactic Acid 1.2 Calcium Total Bilirubin AST ALT Alkaline Phosphatase Total Protein Albumin Globulin Albumin/Globulin Ratio Lipase Urine Color YELLOW Urine Clarity HAZY Urine pH 6.0 Ur Specific [place] 1.020 Urine Protein 30 H Urine Glucose (UA) NEGATIVE Urine Ketones NEGATIVE Urine Occult Blood LARGE H Urine Nitrite POSITIVE H Urine Bilirubin NEGATIVE Urine Urobilinogen 1 (NORMAL) Ur Leukocyte Esterase MODERATE H Urine RBC 11-25 H Urine WBC 11-25 H Ur Squamous Epith Cells NONE SEEN Urine Bacteria Many H Ur Microscopic Review INDICATED Urine Culture Comments INDICATED Nasal Adenovirus (PCR) Nasal B. parapertussis DNA (PCR) Nasal Coronavir 229E PCR Nasal Coronavir HKU1 PCR Nasal Coronavir NL63 PCR Nasal Coronavir OC43 PCR Nasal Enterovir/Rhinovir PCR Nasal Influenza B PCR Nasal Influenza A PCR Nasal Parainfluen 1 PCR Nasal Parainfluen 2 PCR Nasal Parainfluen 3 PCR Nasal Parainfluen 4 PCR Nasal RSV (PCR) Nasal B.pertussis DNA PCR Nasal C.pneumoniae (PCR) Raz Human Metapneumo PCR Nasal M.pneumoniae (PCR) Nasal SARS-CoV-2 (PCR) - Rads (name of study) cxr Radiology: Final report received, See rad report PD Medical Decision Making - ED course Complexity details: reviewed results, re-evaluated patient, considered differential, d/w patient, d/w family ED course: 67-year-old male with a fever, chest x-ray is negative, has a leukocytosis. Appears to have a UTI but does have a chronic catheter, given his fever and leukocytosis, given Rocephin. CT of the abdomen pelvis will be obtained. This will be followed up by Dr. Carson. Patient will be reevaluated after the CT scan to determine admission versus discharge with antibiotics. The patient does live at a [facility]term. His lactate is normal. Blood cultures were drawn. COVID is negative. Chest x-ray is negative Departure - Departure Clinical Impression: Fever Qualifiers: Fever type: unspecified Qualified Code(s): R50.9 - Fever, unspecified UTI (urinary tract infection) Qualifiers: Urinary tract infection type: acute cystitis Hematuria presence: with hematuria Qualified Code(s): N30.01 - Acute cystitis with hematuria Condition: Stable
[2022-06-04 20:14] LABS: ALBUMIN 3.5 g/dL (3.2-5.5); ALBUMIN/GLOBULIN RATIO 0.8 (1.0-2.2); BILIRUBIN,TOTAL 0.8 mg/dL (0.2-1.0); CALCIUM 9.2 mg/dL (8.5-10.3); CREATININE 1.4 mg/dL (0.6-1.2); TOTAL PROTEIN 8.1 g/dL (6.7-8.2)
--- NOTE | 2022-06-04 20:19 | XRAY Report ---
PROCEDURE: Chest 1 View X-Ray INDICATIONS: fever TECHNIQUE: One view of the chest was acquired. COMPARISON: Similar chest plain film 05/04/2022. FINDINGS: Surgical changes and devices: None. Lungs and pleura: No pleural effusions or pneumothorax. Lungs are improved from the prior study wit h a chronic interstitial prominence but no definite superimposed pulmonary edema.. Mediastinum: Mediastinal contours appear normal. Heart size is normal. Bones and chest wall: No suspicious bony lesions. Overlying soft tissues appear unremarkable. IMPRESSION: No pneumonia is found. Improved pulmonary edema pattern, persistent chronic interstitial prominence. Reviewed by: Homero Ludwig MD on 06/04/2022 8:17 PM PST Approved by: Homero Ludwig MD on 06/04/2022 8:17 PM PST Station ID: [id number]
[2022-06-04 20:47] LABS: B. PARAPERTUSSIS- RESP PCR PAN NOT DETECTED; B. PERTUSSIS- RESP PCR PANEL NOT DETECTED; C. PNEUMONIAE- RESP PCR PANEL NOT DETECTED; CORONAVIRUS 229E-RESP PCR NOT DETECTED; CORONAVIRUS HKU1-RESP PCR NOT DETECTED; CORONAVIRUS NL63-RESP PCR NOT DETECTED; CORONAVIRUS OC43-RESP PCR NOT DETECTED; HUMAN METAPNEUMOVIRUS NOT DETECTED; INFLUENZA A- RESP PCR PANEL NOT DETECTED; INFLUENZA B - RESP PCR PANEL NOT DETECTED; M. PNEUMONIAE- RESP PCR PANEL NOT DETECTED; PARAINFLUENZA VIRUS 1 NOT DETECTED; PARAINFLUENZA VIRUS 2 NOT DETECTED; PARAINFLUENZA VIRUS 3 NOT DETECTED; PARAINFLUENZA VIRUS 4 NOT DETECTED; RHINOVIRUS/ENTEROVIRUS NOT DETECTED; RSV- RESP PCR PANEL NOT DETECTED; SARS-CoV-2 -RESP PCR PANEL NOT DETECTED
[2022-06-04 21:24] LABS: BILIRUBIN,URINE NEGATIVE (NEGATIVE); GLUCOSE, URINE (UA) NEGATIVE (NEGATIVE); KETONES,URINE (UA) NEGATIVE (NEGATIVE); LEUKOCYTE ESTERASE, URINE MODERATE (NEGATIVE); NITRITE,URINE POSITIVE (NEGATIVE); OCCULT BLOOD,URINE LARGE (NEGATIVE); PROTEIN,URINE 30 mg/dL (NEGATIVE); UROBILINOGEN,URINE 1 (NORMAL) E.U./dL (NORMAL)
[2022-06-04 21:25] LABS: CLARITY,URINE HAZY (CLEAR)
[2022-06-04] MEDS ORDERED: cefTRIAXone 1 GM VIAL IVP STA (21:27)
[2022-06-04 21:34] LABS: BACTERIA,URINE Many /HPF (None Seen); SQUAMOUS EPITHELIAL CELL,UR NONE SEEN (<= Few)
[2022-06-04] MEDS ORDERED: iohexoL-300 100 ML VIAL ONE (21:37)
[2022-06-04] MEDS ORDERED: iohexoL-300 100 ML VIAL IVP ONE (22:26)
--- NOTE | 2022-06-04 22:38 | CT Report ---
PROCEDURE: ABDOMEN/PELVIS W INDICATIONS: fever, UTI CONTRAST: 100 ml omni 300 TECHNIQUE: After the administration of nonionic contrast, 5 mm thick sections acquired from the diaphragms to th e symphysis. 5 mm thick coronal and sagittal reformats were acquired. For radiation dose reduction, the following was used: automated exposure control, adjustment of mA and/or kV according to patient size. COMPARISON: Prior CT abdomen/pelvis 05/05/2022 FINDINGS: Image quality: Excellent. ABDOMEN: Lung bases: Lung bases are clear. Heart size is normal. Solid organs: Liver and spleen are normal in size and enhancement. Gallbladder appears normal Bili maureen system is non dilated. Pancreas enhances normally. No adrenal nodules. Kidneys demonstrate asy mmetric size, normal on the right and mildly diminutive on the left and there is normal enhancement, without hydronephrosis or nephrolithiasis. Peritoneum and bowel: Bowel loops demonstrate normal wall thickness and caliber. No free fluid or a ir. Nodes and vessels: No retroperitoneal or mesenteric adenopathy by size criteria. Aorta and inferior vena cava are normal in size. Miscellaneous: No ventral hernias. PELVIS: Genitourinary: Bladder wall thickness is normal. Miscellaneous: No inguinal hernias or adenopathy. Bladder is emptied by a Bryant catheter in place a nd as was previously the case several small to moderate sized bladder calculi lie immediately adjacen t to the Bryant catheter balloon. Bones: No suspicious bony lesions. No vertebral body compression fractures. IMPRESSION: No urinary tract obstruction is found. Asymmetry in size of the kidneys indicates presen ce of mild left renal cortical atrophy perhaps related to prior ischemic or infectious injury. No def inite current pyelonephritis is seen nor is a perinephric abscess identified. The bladder contains at least 3 small to moderate sized bladder calculi in close apposition to the Fo cielo catheter balloon. The Bryant catheter virtually completely empties the bladder lumen. Reviewed by: Homero Ludwig MD on 06/04/2022 10:37 PM PST Approved by: Homero Ludwig MD on 06/04/2022 10:37 PM PST Station ID: [id number]
--- NOTE | 2022-06-04 23:11 | ED Physician Documentation ---
ED Addendum - Addendum Addendum: 06/05/22 04:40 Patient received as signout from off going physician, please see their documentation for further detail. Labs and imaging reviewed. All imaging received independent interpretation as well as interpretation from radiology. CT abdomen pelvis nonacute. Patient does present with urinary tract infection with setting of chronic indwelling Bryant catheter and an elevated white blood cell count. His care was discussed with the telemetry hospitalist service. At this time he will be hospitalized for further evaluation and treatment.
[2022-06-04] MEDS ORDERED: ACETAMINOPHEN 325 MG TABLET PO PRN (23:14)
[2022-06-04] MEDS ORDERED: SODIUM CHLORIDE FLUSH 0.9% 10 ML SYRINGE IVP PRN (23:14)
--- NOTE | 2022-06-04 23:34 | HISTORY & PHYSICAL EXAMINATION ---
Chief Complaint - Chief Complaint Chief Complaint: fever History of Present Illness - Admitted From Admitted From:: ED - History of Present Illness HPI Comment/Other: This is a 67 yo male with hx of dementia, chronic lara, CKD III, HTN, DM II, CVA and BPH who was brought to the ED from his facility for fever today. In the ED, he was found to have UTI with sepsis, pt was started on IV Rocephin, CT abd/pelvis did not show acute process, covid 19 negative, pt was not a good historian due to his dementia, therefore hospitalist contacted to admit the pt for further management. History - Past Medical History Cardiovascular: reports: Hypertension, High cholesterol Neuro: reports: Dementia, CVA Endocrine/Autoimmune: reports: Type 2 diabetes : reports: Benign prostate hypertrophy, Retention, Chronic bladder infection, Renal insuffiency, Indwelling catheter Psych: reports: Depression, Anxiety - Past Surgical History Other past surgical history: unable to obtain due to dementia - Family & Social History Family History Comment/Other: unable to obtain due to dementia Social History Notes: He currently resides at [facility]. He has history of methamphetamine abuse, used it about twice a week for 10 years according to old records. He is a nonsmoker and uses no alcohol. - Substance History Tobacco Details: Other (unable to obtain social hx due to dementia) - POLST Patient has POLST: Yes POLST Status: Full Code Meds/Allgy - Home Medications Home Medications: Ambulatory Orders Medication Instructions Recorded Confirmed Doxazosin [Cardura] 1 mg PO QPM #30 tablet 08/27/18 05/06/22 Tamsulosin [Flomax] 0.4 mg PO DAILY #30 capsule 08/27/18 05/06/22 Insulin Glargine,Hum.rec.anlog 24 unit SUBQ DAILY 03/06/19 05/07/22 [Basaglar Kwikpen U-100] Acetaminophen 650 mg PO Q4HR PRN 03/07/19 05/06/22 Aspirin 325 mg PO DAILY 03/07/19 05/06/22 Atorvastatin Calcium 80 mg PO QPM 03/07/19 05/06/22 Clopidogrel [Plavix] 75 mg PO DAILY 03/07/19 05/06/22 Thiamine [Vitamin B-1] 100 mg PO DAILY 03/07/19 05/06/22 ondansetron HCL [Zofran] 8 mg PO Q8H PRN 03/07/19 05/07/22 Lisinopril [Zestril] 20 mg DAILY 09/03/19 05/06/22 Citalopram [CeleXA] 20 mg PO DAILY 12/16/19 05/06/22 Calcium Carbonate [Tums (Calcium 500 - 1,000 mg PO Q2H PRN 10/30/20 05/06/22 Carbonate 500mg)] Insulin Aspart [NovoLOG] 2 - 12 unit SUBQ TIDWM 10/30/20 05/07/22 Insulin Aspart [NovoLOG] 7 unit SUBQ TIDWM 10/30/20 05/07/22 Omeprazole [PriLOSEC] 20 mg PO DAILY 10/30/20 05/06/22 Amlodipine Besylate [Norvasc] 10 mg PO DAILY 09/21/21 05/06/22 Sulfamethox/Trimeth 800/160 1 tab PO BID 05/07/22 05/07/22 [Bactrim Ds] Saccharomyces Boulardii [Florastor] 250 mg PO BIDWM 7 Days #14 cap 05/09/22 cefUROXime axetiL [Ceftin] 500 mg PO BID 7 Days #28 tab 05/09/22 - Allergies Allergies/Adverse Reactions: Allergies Allergy/AdvReac Type Severity Reaction Status Date / Time No Known Drug Allergies Allergy Verified 05/04/22 14:32 Review of Systems - Other Findings Other Findings: unable to obtain accurate ROS due to baseline dementia, but fever is +. Exam - Vital Signs Reviewed Vital Signs: Yes Vital Signs: Vital Signs x48h Temp Pulse Resp BP Pulse Ox 06/04/22 21:38 38.5 C H 96 22 105/74 95 06/04/22 19:23 39.7 C H 104 H 22 119/75 96 - Physical Exam Comments/Other: PHYSICAL EXAM (with a help of ED provider): GENERAL: Patient resting in bed, NAD. HEENT: Atraumatic, MMM. PULMONARY: CTAB, equal aeration bilaterally. CARDIAC: RRR, no murmur. GASTROINTESTINAL: NABS, soft, non-tender. EXTREMITIES: no C/C/E, no calf tenderness. NEURO: Limited neuro exams due to baseline dementia. Sepsis Event Note (H) - Evaluation Current Stage of Sepsis: Sepsis Possible source of Sepsis: positive: Genitourinary - Sepsis Criteria Sepsis Criteria: Recorded Temperature greater than 38.3C or Less than 36C, Recorded Heart Rate greater than 90 bpm, WBC count greater than 12,000 or less than 4000 Conclusion/Plan - Lab Results Lab results reviewed: Yes Miah Bones: 06/04/22 19:45 06/04/22 19:45 - Diagnostic Imaging Results Diagnostic Imaging Results: positive: Final report reviewed - Other Other Results/Comments: Assessment/Plan: 1. UTI 2. Sepsis POA 3. Chronic lara 4. Hx of CVA 5. Dementia 6. DM II 7. CKD III 8. HTN 9. BPH - Pt was started on Rocephin IV daily, f/u on urine/bld cultures, ordered lara exchange to new one, renal fxn at baseline, con't home meds of asa/plavix/statin for hx of CVA, SSI for DM II, Flomax for BPH, SCDs for DVT prophylaxis. Core Measures - Anticipated LOS I expect patient to be DC'd or transferred within 96 hours.: Yes - DVT/VTE - Prophylaxis VTE/DVT Device ordered at admit?: Yes
[2022-06-05] MEDS: SODIUM CHLORIDE FLUSH 0.9% 10 ML SYRINGE IVP SCH ×3 (04:06→17:15)
[2022-06-05 05:41] LABS: BASOPHILS # (AUTO) 0.1 10^3/uL (0.0-0.1); BASOPHILS % (AUTO) 0.5 %; HCT - HEMATOCRIT 34.7 % (42.0-52.0); HGB - HEMOGLOBIN 11.1 g/dL (14.0-18.0); LYMPHOCYTES # (AUTO) 0.9 10^3/uL (1.5-3.5); LYMPHOCYTES % (AUTO) 8.8 %; MEAN CORPUSCULAR HEMOGLOBIN 29.4 pg (27.0-31.0); MEAN CORPUSCULAR VOLUME 91.8 fL (80.0-94.0); MEAN PLATELET VOLUME 11.5 fL (7.4-11.4); MONOCYTES # (AUTO) 0.5 10^3/uL (0.0-1.0); MONOCYTES % (AUTO) 5.1 %; NEUTROPHILS # (AUTO) 8.8 10^3/uL (1.5-6.6); NEUTROPHILS % (AUTO) 85.2 %; PLT - PLATELET COUNT 263 10^3/uL (130-450); RED BLOOD COUNT 3.78 10^6/uL (4.70-6.10); WHITE BLOOD COUNT 10.4 x10^3/uL (4.8-10.8)
[2022-06-05 05:55] LABS: CALCIUM 8.6 mg/dL (8.5-10.3); CREATININE 1.4 mg/dL (0.6-1.2); PHOSPHORUS 2.5 mg/dL (2.5-4.6); POTASSIUM 3.8 mmol/L (3.5-5.0)
[2022-06-05] MEDS: PANTOPRAZOLE 40 MG TABLET PO SCH (06:12)
[2022-06-05] MEDS: TAMSULOSIN 0.4 MG CAPSULE PO SCH (08:19)
[2022-06-05] MEDS: ASPIRIN 325 MG TABLET PO SCH (08:19)
[2022-06-05] MEDS: INSULIN LISPRO 300 UNIT/3 ML PEN SUBQ SCH ×4 (08:19→20:52)
[2022-06-05] MEDS: CLOPIDOGREL 75 MG TABLET PO SCH (08:19)
[2022-06-05] MEDS: THIAMINE 100 MG TABLET PO SCH (08:19)
[2022-06-05] MEDS ORDERED: NON FORMULARY MED (Omeprazole [Prilosec] 20 MG Capsule) PO SCH (09:00)
[2022-06-05] MEDS ORDERED: HEPARIN 5,000 UNIT/ML VIAL SUBQ SCH (09:00)
--- NOTE | 2022-06-05 11:05 | PHARMACY PROGRESS NOTE ---
- Best Possible Medication History Admit Date and Time: 06/04/22 7354 Processed by: Pharmacy Medication History completed: Yes Patient Interview: Completed Secondary Source(s): Pharmacy records (pt goes to [facility]. ), Facility MAR as ONLY source As the person ultimately responsible for medication therapy, providers are able to order a medication from an existing home medication list in [facility] via the "Reconcile Routine" prior to Confirmation of that medication by medical support specialist. Such practice is discouraged except when the physician, in their clinical judgment, deems that a medical need exists for a medication without regard to previous use.
[2022-06-05] MEDS ORDERED: LIDOCAINE 2% URO-JET 5 ML SYRINGE UR ONE (12:00)
--- NOTE | 2022-06-05 13:53 | PROVIDER PROGRESS NOTE ---
Assessment/Plan - Problem List (1) UTI (urinary tract infection) Qualifiers: Urinary tract infection type: catheter-associated UTI Assessment/Plan: Two admissions ago his urine culture grew Providencia. One admission ago, which was just 1 month ago, he had a Proteus UTI that caused a Proteus bacteremia. Currently cultures are still pending. Plan: Continue with empiric IV antibiotics Will start decreasing his IV fluids since he is awake and taking in a good diet 2. Chronic Indwelling lara The Lara was apparently not changed when he presented to the ER or on the night of admission Plan: Will change his Lara to a clean Lara catheter 3. DM II The patient is insulin-dependent. 1 month ago his A1c was very good at 7.1 Plan: Continue with diabetic diet, fingerstick checks, ss insulin coverage and his usual long-acting insulin, awaiting med list to be reconciled by pharmacy 4. CKD III Creatinine at baseline is about 1.2-1.4. Plan: Avoid nephrotoxins. Follow BMP daily. 5. 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 The confusion from yesterday has resolved. He is probably back to his baseline. Plan: Will resume any usual medications for his dementia, once the med list is r econciled by pharmacy 6. CAD As pr Hx. He had an ND in 03/11 Plan: We will resume and continue all his usual medications once the list is reconciled by pharmacy 7. Sepsis Resolved - Current Meds Current Meds: Current Medications Generic Name Dose Route Start Last Admin Trade Name Marylou PRN Reason Stop Dose Admin Aspirin 325 mg 06/05/22 09:00 06/05/22 08:19 Aspirin 325 Mg Tablet PO 325 mg DAILY MONTY Administration Clopidogrel Bisulfate 75 mg 06/05/22 09:00 06/05/22 08:19 Clopidogrel 75 Mg Tablet PO 75 mg DAILY MONTY Administration Insulin Human Lispro 3 - 11 unit 06/05/22 08:00 06/05/22 11:51 Insulin Lispro 300 Unit/3 Ml Pen SUBQ 7 unit 0800,1200,1700,2100 MONTY Administration Protocol Pantoprazole Sodium 40 mg 06/05/22 07:00 06/05/22 06:12 Pantoprazole 40 Mg Tablet PO 40 mg QDAC MONTY Administration Sodium Chloride 10 ml 06/05/22 01:00 06/05/22 08:19 Sodium Chloride Flush 0.9% 10 Ml Syringe IVP 10 ml 0100,0900,1700 MONTY Administration Tamsulosin HCl 0.4 mg 06/05/22 09:00 06/05/22 08:19 Tamsulosin 0.4 Mg Capsule PO 0.4 mg DAILY MONTY Administration Thiamine HCl 100 mg 06/05/22 09:00 06/05/22 08:19 Thiamine 100 Mg Tablet PO 100 mg DAILY MONTY Administration - Lab Result Fish Bone Diagrams: 06/05/22 05:04 06/05/22 05:04 - Additional Planning My Orders: My Active Orders 06/05/22 11:43 Lara Continuation and Care [RC] QSHIFT 06/05/22 12:00 Lara Insertion [RC] QSHIFT Subjective - Subjective Patient Reports: Resting Comfortably, No Complaints Objective Vital Signs: Vital Signs - 24 hr 06/04/22 06/04/22 06/04/22 19:23 21:38 23:57 Temperature 39.7 C H 38.5 C H Heart Rate 104 H 96 77 Heart Rate [ Brachial] Respiratory 22 22 18 Rate Blood Pressure 119/75 105/74 125/80 Blood Pressure [Right Brachial artery] O2 Saturation 96 95 95 06/05/22 06/05/22 06/05/22 00:46 05:03 08:02 Temperature 36.8 C 36.6 C 36.9 C Heart Rate Heart Rate [ 76 72 68 Brachial] Respiratory 18 18 18 Rate Blood Pressure Blood Pressure 132/77 H 119/69 130/69 [Right Brachial artery] O2 Saturation 97 94 94 06/05/22 12:21 Temperature 36.9 C Heart Rate Heart Rate [ 66 Brachial] Respiratory 18 Rate Blood Pressure Blood Pressure 127/73 [Right Brachial artery] O2 Saturation 95 Oxygen O2 Source [With Activity] Nasal cannula O2 Source Room air I&O (Last 24 Hrs): Intake and Output Totals x24h 06/03/22 06/04/22 06/05/22 23:59 23:59 23:59 Intake Total 1500 Output Total 525 Balance 975 General: Alert, No acute distress HEENT: Mucous membr. moist/pink Neck: Supple, No JVD Neuro: Alert, Disoriented Cardiovascular: Regular rate Respiratory: No respiratory distress Abdomen: Normal bowel sounds, Soft Genitourinary: Other (Lara and diaper in place) Extremities: No clubbing, No edema, No tenderness/swelling - Results Results: Laboratory Results WBC 10.4 x10^3/uL (4.8-10.8) 06/05/22 05:04 RBC 3.78 10^6/uL (4.70-6.10) L 06/05/22 05:04 Hgb 11.1 g/dL (14.0-18.0) L 06/05/22 05:04 Hct 34.7 % (42.0-52.0) L 06/05/22 05:04 MCV 91.8 fL (80.0-94.0) 06/05/22 05:04 MCH 29.4 pg (27.0-31.0) 06/05/22 05:04 MCHC 32.0 g/dL (32.0-36.0) 06/05/22 05:04 RDW 13.0 % (12.0-15.0) 06/05/22 05:04 Plt Count 263 10^3/uL (130-450) 06/05/22 05:04 MPV 11.5 fL (7.4-11.4) H 06/05/22 05:04 Neut # (Auto) 8.8 10^3/uL (1.5-6.6) H 06/05/22 05:04 Lymph # (Auto) 0.9 10^3/uL (1.5-3.5) L 06/05/22 05:04 Lares # (Auto) 0.5 10^3/uL (0.0-1.0) 06/05/22 05:04 Eos # (Auto) 0.0 10^3/uL (0.0-0.7) 06/05/22 05:04 Baso # (Auto) 0.1 10^3/uL (0.0-0.1) 06/05/22 05:04 Absolute Nucleated RBC 0.00 x10^3/uL 06/05/22 05:04 Nucleated RBC % 0.0 /100WBC 06/05/22 05:04 Sodium 140 mmol/L (135-145) 06/05/22 05:04 Potassium 3.8 mmol/L (3.5-5.0) 06/05/22 05:04 Chloride 105 mmol/L (101-111) 06/05/22 05:04 Carbon Dioxide 25 mmol/L (21-32) 06/05/22 05:04 Anion Gap 10.0 (6-13) 06/05/22 05:04 BUN 29 mg/dL (6-20) H 06/05/22 05:04 Creatinine 1.4 mg/dL (0.6-1.2) H 06/05/22 05:04 Estimated GFR (MDRD) 50 (>89) L 06/05/22 05:04 Glucose 280 mg/dL (70-100) H 06/05/22 05:04 Lactic Acid 1.2 mmol/L (0.5-2.2) 06/04/22 19:45 Calcium 8.6 mg/dL (8.5-10.3) 06/05/22 05:04 Phosphorus 2.5 mg/dL (2.5-4.6) 06/05/22 05:04 Total Bilirubin 0.8 mg/dL (0.2-1.0) 06/04/22 19:45 AST 18 IU/L (10-42) 06/04/22 19:45 ALT 18 IU/L (10-60) 06/04/22 19:45 Alkaline Phosphatase 66 IU/L (42-121) 06/04/22 19:45 Total Protein 8.1 g/dL (6.7-8.2) 06/04/22 19:45 Albumin 3.0 g/dL (3.2-5.5) L 06/05/22 05:04 Globulin 4.6 g/dL (2.1-4.2) H 06/04/22 19:45 Albumin/Globulin Ratio 0.8 (1.0-2.2) L 06/04/22 19:45 Lipase 25 U/L (22-51) 06/04/22 19:45 Urine Color YELLOW 06/04/22 20:27 Urine Clarity HAZY (CLEAR) 06/04/22 20:27 Urine pH 6.0 PH (5.0-7.5) 06/04/22 20:27 Ur Specific [place] 1.020 (1.002-1.030) 06/04/22 20:27 Urine Protein 30 mg/dL (NEGATIVE) H 06/04/22 20:27 Urine Glucose (UA) NEGATIVE mg/dL (NEGATIVE) 06/04/22 20:27 Urine Ketones NEGATIVE mg/dL (NEGATIVE) 06/04/22 20:27 Urine Occult Blood LARGE (NEGATIVE) H 06/04/22 20:27 Urine Nitrite POSITIVE (NEGATIVE) H 06/04/22 20:27 Urine Bilirubin NEGATIVE (NEGATIVE) 06/04/22 20:27 Urine Urobilinogen 1 (NORMAL) E.U./dL (NORMAL) 06/04/22 20:27 Ur Leukocyte Esterase MODERATE (NEGATIVE) H 06/04/22 20:27 Urine RBC 11-25 /HPF (0-5) H 06/04/22 20:27 Urine WBC 11-25 /HPF (0-3) H 06/04/22 20:27 Ur Squamous Epith Cells NONE SEEN (<= Few) 06/04/22 20:27 Urine Bacteria Many /HPF (None Seen) H 06/04/22 20:27 Ur Microscopic Review INDICATED 06/04/22 20:27 Urine Culture Comments INDICATED 06/04/22 20:27 Nasal Adenovirus (PCR) NOT DETECTED 06/04/22 19:20 Nasal B. parapertussis DNA (PCR) NOT DETECTED 06/04/22 19:20 Nasal Coronavir 229E PCR NOT DETECTED 06/04/22 19:20 Nasal Coronavir HKU1 PCR NOT DETECTED 06/04/22 19:20 Nasal Coronavir NL63 PCR NOT DETECTED 06/04/22 19:20 Nasal Coronavir OC43 PCR NOT DETECTED 06/04/22 19:20 Nasal Enterovir/Rhinovir PCR NOT DETECTED 06/04/22 19:20 Nasal Influenza B PCR NOT DETECTED 06/04/22 19:20 Nasal Influenza A PCR NOT DETECTED 06/04/22 19:20 Nasal Parainfluen 1 PCR NOT DETECTED 06/04/22 19:20 Nasal Parainfluen 2 PCR NOT DETECTED 06/04/22 19:20 Nasal Parainfluen 3 PCR NOT DETECTED 06/04/22 19:20 Nasal Parainfluen 4 PCR NOT DETECTED 06/04/22 19:20 Nasal RSV (PCR) NOT DETECTED 06/04/22 19:20 Nasal B.pertussis DNA PCR NOT DETECTED 06/04/22 19:20 Nasal C.pneumoniae (PCR) NOT DETECTED 06/04/22 19:20 Raz Human Metapneumo PCR NOT DETECTED 06/04/22 19:20 Nasal M.pneumoniae (PCR) NOT DETECTED 06/04/22 19:20 Nasal SARS-CoV-2 (PCR) NOT DETECTED 06/04/22 19:20 Sepsis Event Note (H) - Evaluation Current Stage of Sepsis: Sepsis Possible source of Sepsis: positive: Genitourinary - Sepsis Criteria Sepsis Criteria: Recorded Temperature greater than 38.3C or Less than 36C, Recorded Heart Rate greater than 90 bpm, WBC count greater than 12,000 or less than 4000
[2022-06-05] MEDS: ATORVASTATIN 40 MG TABLET PO SCH (20:51)
[2022-06-05] MEDS ORDERED: DOXAZOSIN 1 MG TABLET PO SCH (21:00)
[2022-06-05] MEDS ORDERED: ATORVASTATIN CALCIUM 80 MG PO SCH (21:00)
[2022-06-05] MEDS ORDERED: cefTRIAXone 1 GM in SODIUM CHLORIDE 0.9% MINIBAG 100 ML IV SCH ×2 (21:00→22:00)
[2022-06-06] MEDS: SODIUM CHLORIDE FLUSH 0.9% 10 ML SYRINGE IVP SCH ×4 (07:13→22:27)
[2022-06-06] MEDS: TAMSULOSIN 0.4 MG CAPSULE PO SCH (08:17)
[2022-06-06] MEDS: ASPIRIN 325 MG TABLET PO SCH (08:17)
[2022-06-06] MEDS: PANTOPRAZOLE 40 MG TABLET PO SCH (08:17)
[2022-06-06] MEDS: CLOPIDOGREL 75 MG TABLET PO SCH (08:17)
[2022-06-06] MEDS: THIAMINE 100 MG TABLET PO SCH (08:17)
[2022-06-06] MEDS: INSULIN LISPRO 300 UNIT/3 ML PEN SUBQ SCH ×4 (08:17→20:58)
[2022-06-06] MEDS ORDERED: CALCIUM CARBONATE CHEW 500 MG TABLET PO PRN (10:41)
[2022-06-06] MEDS: ATORVASTATIN 40 MG TABLET PO SCH (20:58)
[2022-06-06] MEDS ORDERED: cefTRIAXone 1 GM in SODIUM CHLORIDE 0.9% MINIBAG 100 ML IV SCH (22:00)
[2022-06-07] MEDS: PANTOPRAZOLE 40 MG TABLET PO SCH (06:39)
[2022-06-07] MEDS: INSULIN LISPRO 300 UNIT/3 ML PEN SUBQ SCH ×6 (07:44→20:43)
[2022-06-07] MEDS: INSULIN GLARGINE-YFGN 300 UNIT/3 ML PEN SUBQ SCH (08:12)
[2022-06-07] MEDS: TAMSULOSIN 0.4 MG CAPSULE PO SCH (08:13)
[2022-06-07] MEDS: THIAMINE 100 MG TABLET PO SCH (08:13)
[2022-06-07] MEDS: SODIUM CHLORIDE FLUSH 0.9% 10 ML SYRINGE IVP SCH ×2 (08:13→16:50)
[2022-06-07] MEDS: ASPIRIN 325 MG TABLET PO SCH (08:13)
[2022-06-07] MEDS: CLOPIDOGREL 75 MG TABLET PO SCH (08:13)
[2022-06-07] MEDS: ASCORBIC ACID 500 MG TABLET PO SCH (08:19)
[2022-06-07] MEDS: CITALOPRAM 10 MG TABLET PO SCH (08:19)
[2022-06-07] MEDS: CIPROFLOXACIN 250 MG TABLET PO SCH ×2 (10:15→20:42)
--- NOTE | 2022-06-07 11:22 | PROVIDER PROGRESS NOTE ---
Subjective - Prog Note Date Prog Note Date: 06/07/22 Prog Note Time: 11:33 - Subjective Pt reports feeling: Improved Subjective: he knows he's in the hospital but that it is [place]. Knows it's May but not the date. Denies pain. No sob, cp, leg edema. Current Medications - Current Medications Current Medications: Active Medications Acetaminophen (Acetaminophen 325 Mg Tablet) 650 mg PO Q4HR PRN PRN Reason: Pain 1 to 4, or Fever Ascorbic Acid (Ascorbic Acid 500 Mg Tablet) 500 mg PO DAILY [facility] Last Admin: 06/07/22 08:19 Dose: 500 mg Aspirin (Aspirin 325 Mg Tablet) 325 mg PO DAILY [facility] Last Admin: 06/07/22 08:13 Dose: 325 mg Atorvastatin Calcium (Atorvastatin 40 Mg Tablet) 80 mg PO QPM [facility] Last Admin: 06/06/22 20:58 Dose: 80 mg Calcium Carbonate/Glycine (Calcium Carbonate Chew 500 Mg Tablet) 500 mg PO Q2H PRN PRN Reason: Heartburn Ciprofloxacin (Ciprofloxacin 250 Mg Tablet) 500 mg PO BID [facility] Last Admin: 06/07/22 10:15 Dose: 500 mg Citalopram Hydrobromide (Citalopram 10 Mg Tablet) 20 mg PO DAILY [facility] Last Admin: 06/07/22 08:19 Dose: 20 mg Clopidogrel Bisulfate (Clopidogrel 75 Mg Tablet) 75 mg PO DAILY [facility] Last Admin: 06/07/22 08:13 Dose: 75 mg Insulin Glargine-yfgn (Insulin Glargine-Yfgn 300 Unit/3 Ml Pen) 24 unit SUBQ DAILY [facility] Last Admin: 06/07/22 08:12 Dose: 24 unit Insulin Human Lispro (Insulin Lispro 300 Unit/3 Ml Pen) 3 - 11 unit SUBQ 0800,1200,1700,2100 [facility]; Protocol Last Admin: 06/07/22 07:44 Dose: Not Given Non-Formulary Medication (Amlodipine Besylate [Norvasc]) 10 mg PO DAILY [facility] Non-Formulary Medication (Insulin Aspart) 7 unit SUBQ TIDWM [facility] Pantoprazole Sodium (Pantoprazole 40 Mg Tablet) 40 mg PO QDAC [facility] Last Admin: 06/07/22 06:39 Dose: 40 mg Sodium Chloride (Sodium Chloride Flush 0.9% 10 Ml Syringe) 10 ml IVP PRN PRN PRN Reason: NEEDED PER PROVIDER ORDERS Last Admin: 06/05/22 20:51 Dose: 10 ml Sodium Chloride (Sodium Chloride Flush 0.9% 10 Ml Syringe) 10 ml IVP 0100,0900,1700 [facility] Last Admin: 06/07/22 08:13 Dose: 10 ml Tamsulosin HCl (Tamsulosin 0.4 Mg Capsule) 0.4 mg PO DAILY [facility] Last Admin: 06/07/22 08:13 Dose: 0.4 mg Thiamine HCl (Thiamine 100 Mg Tablet) 100 mg PO DAILY [facility] Last Admin: 06/07/22 08:13 Dose: 100 mg Insulin Glargine,Hum.rec.anlog [Basaglar Kwikpen U-100] 24 unit SUBQ DAILY 03/06/19 Acetaminophen 650 mg PO Q4HR PRN 03/07/19 Aspirin 325 mg PO DAILY 03/07/19 Atorvastatin Calcium 80 mg PO QPM 03/07/19 Clopidogrel [Plavix] 75 mg PO DAILY 03/07/19 Thiamine [Vitamin B-1] 100 mg PO DAILY 03/07/19 ondansetron HCL [Zofran] 8 mg PO Q8H PRN 03/07/19 Lisinopril [Zestril] 20 mg DAILY 09/03/19 Citalopram [CeleXA] 20 mg PO DAILY 12/16/19 Calcium Carbonate [Tums (Calcium Carbonate 500mg)] 500 - 1,000 mg PO Q2H PRN 10/30/20 Insulin Aspart [NovoLOG] 2 - 12 unit SUBQ TIDWM 10/30/20 Insulin Aspart [NovoLOG] 7 unit SUBQ TIDWM 10/30/20 Omeprazole [PriLOSEC] 20 mg PO DAILY 10/30/20 Amlodipine Besylate [Norvasc] 10 mg PO DAILY 09/21/21 Ascorbic Acid 1 tab PO DAILY 06/05/22 Bisacodyl Supp [Dulcolax Supp] 1 supp MT DAILY PRN 06/05/22 Docusate Sodium 250Mg Capsule [Colace 250Mg Capsule] 1 cap PO DAILY PRN 06/05/22 Magnesium Hydroxide [Milk of Magnesia] 30 ml PO PRN PRN 06/05/22 Senna [Senokot] 1 - 2 tab PO BID PRN 06/05/22 polyethylene glycoL 3350 [Polyethylene Glycol 3350] 17 g PO BID 06/05/22 Objective - Vital Signs/Intake & Output Reviewed Vital Signs: Yes Vital Signs: Vital Signs x48h Temp Pulse Resp BP Pulse Ox 06/07/22 07:38 36.7 C 60 16 138/62 H 96 Intake & Output: Intake & Output 06/04/22 06/05/22 06/06/22 06/07/22 23:59 23:59 23:59 23:59 Intake Total 2103.333 2472 480 Output Total 925 1950 450 Balance 1178.333 522 30 - Objective General Appearance: positive: No acute distress, Alert, Other (bearded, alert, cooperative) Eyes Bilateral: positive: PERRL, EOMI ENT: positive: No signs of dehydration Neck: positive: No JVD. negative: Stiff neck Respiratory: positive: No respiratory distress. negative: Wheezes, Rales, Rhonchi Cardiovascular: positive: Regular rate & rhythm Abdomen: positive: Non-tender, No organomegaly, Nml bowel sounds, No distention Skin: positive: Warm, Dry Extremities: positive: Full ROM, No pedal edema Neurologic/Psychiatric: positive: CN's nml (2-12), Motor nml (but not sure why he is wheelcahir.), Disoriented to time - Lab Results Fish Bones: 06/05/22 05:04 06/05/22 05:04 Other Labs: Lab Results x24hrs 06/07/22 06/07/22 06/06/22 Range/Units 11:15 07:37 20:34 POC Whole Bld Glucose 236 H 139 H 213 H (70 - 100) mg/dL 06/06/22 Range/Units 16:28 POC Whole Bld Glucose 248 H (70 - 100) mg/dL ABX Reporting Has patient been on IV antibiotics over the past 48 hours?: Yes Sepsis Event Note (H) - Evaluation Current Stage of Sepsis: Resolved Possible source of Sepsis: positive: Genitourinary - Sepsis Criteria Sepsis Criteria: Recorded Temperature greater than 38.3C or Less than 36C, Recorded Heart Rate greater than 90 bpm, WBC count greater than 12,000 or less than 4000 Assessment/Plan - Problem List (1) UTI (urinary tract infection) Impression: Assessment/Plan: Two admissions ago his urine culture grew Providencia. One admission ago, which was just 1 month ago, he had a Proteus UTI that caused a Proteus bacteremia. this admission his urine is growing Pseudomonas. He has vascular dementia. At baseline he is not very ambulatory. As such he is not seeing physical therapy here. He was altered on admit and has drifted back to [facility]. He knows he's in a hospital and that is it May. Eating 75% to 100% of food Plan: DC rocephin after 4 doses. Change to Cipro po for 6 more days. If no fever or new symptoms, dc back to [facility] tomorrow. 2. Chronic Indwelling lara The Lara was apparently not changed when he presented to the ER or on the night of admission. lara has been changed. 3. DM II The patient is insulin-dependent. 1 month ago his A1c was very good at 7.1 At [facility] he takes 24 units of Lantus, 7 units of NovoLog with meals, plus sliding scale with meals. Here we have him on Lantus 24 units, and sliding scale. No fixed scheduled dose with meals. Glucose yesterday was 160, 224, 265, 213 Today is 139 and 236 Plan: Continue with diabetic diet, fingerstick checks, ss insulin coverage and his usual long-acting insulin, and add 7 units to lunch and dinner. 4. CKD III Creatinine at baseline is about 1.2-1.4. Plan: Avoid nephrotoxins. Follow BMP daily. 5. 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 The confusion from admission has resolved. He is probably back to his baseline. Celexa has been resumed. 6. CAD As pr Hx. He had an UT in 03/11 Plan: resume plavix and GUSTAVO 7. Sepsis Resolved Qualifiers: Qualified Code(s): N30.01 - Acute cystitis with hematuria
[2022-06-07] MEDS: amLODIPine 5 MG TABLET PO SCH (11:57)
--- NOTE | 2022-06-07 14:26 | PROVIDER PROGRESS NOTE ---
Assessment/Plan - Problem List (1) UTI (urinary tract infection) Qualifiers: Assessment/Plan: Two admissions ago his urine culture grew Providencia. One admission ago, which was just 1 month ago, he had a Proteus UTI that caused a Proteus bacteremia. Currently cultures are still pending. Plan: Continue with empiric IV antibiotics Will start decreasing his IV fluids since he is awake and taking in a good diet and sepsis has resolved 2. Chronic Indwelling lara The Lara was apparently not changed when he presented to the ER on the night of admission. We changed his Lara to a clean Lara catheter 3. DM II The patient is insulin-dependent. One month ago his A1c was very good at 7.1 Plan: Continue with diabetic diet, fingerstick checks, ss insulin coverage and his usual long-acting insulin, awaiting med list to be reconciled by pharmacy 4. CKD III Creatinine at baseline is about 1.2-1.4. Plan: Avoid nephrotoxins. Follow BMP daily. 5. 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 The confusion from yesterday has resolved. He is probably back to his baseline. Plan: Will resume any usual medications for his dementia, once the med list is reconciled by pharmacy 6. CAD As pr Hx. He had an RI in 03/11 Plan: We will resume and continue all his usual medications once the list is reconciled by pharmacy 7. Sepsis Resolved - Current Meds Current Meds: Current Medications Generic Name Dose Route Start Last Admin Trade Name Margaritoq PRN Reason Stop Dose Admin Amlodipine Besylate 10 mg 06/07/22 12:00 06/07/22 11:57 Amlodipine 5 Mg Tablet PO 10 mg DAILY MONTY Administration Ascorbic Acid 500 mg 06/07/22 09:00 06/07/22 08:19 Ascorbic Acid 500 Mg Tablet PO 500 mg DAILY MOTNY Administration Aspirin 325 mg 06/05/22 09:00 06/07/22 08:13 Aspirin 325 Mg Tablet PO 325 mg DAILY MONTY Administration Atorvastatin Calcium 80 mg 06/05/22 21:00 06/06/22 20:58 Atorvastatin 40 Mg Tablet PO 80 mg QPM MONTY Administration Ciprofloxacin 500 mg 06/07/22 09:00 06/07/22 10:15 Ciprofloxacin 250 Mg Tablet PO 500 mg BID MONTY Administration Citalopram Hydrobromide 20 mg 06/07/22 09:00 06/07/22 08:19 Citalopram 10 Mg Tablet PO 20 mg DAILY MONTY Administration Clopidogrel Bisulfate 75 mg 06/05/22 09:00 06/07/22 08:13 Clopidogrel 75 Mg Tablet PO 75 mg DAILY MONTY Administration Insulin Glargine-yfgn 24 unit 06/07/22 09:00 06/07/22 08:12 Insulin Glargine-Yfgn 300 Unit/3 Ml Pen SUBQ 24 unit DAILY MONTY Administration Insulin Human Lispro 3 - 11 unit 06/05/22 08:00 06/07/22 11:58 Insulin Lispro 300 Unit/3 Ml Pen SUBQ 7 unit 0800,1200,1700,2100 MONTY Administration Protocol Insulin Human Lispro 7 unit 06/07/22 12:00 06/07/22 11:58 Insulin Lispro 300 Unit/3 Ml Pen SUBQ 7 unit TIDWM MONTY Administration Pantoprazole Sodium 40 mg 06/05/22 07:00 06/07/22 06:39 Pantoprazole 40 Mg Tablet PO 40 mg QDAC MONTY Administration Sodium Chloride 10 ml 06/04/22 23:14 06/05/22 20:51 Sodium Chloride Flush 0.9% 10 Ml Syringe IVP 10 ml PRN PRN Administration NEEDED PER PROVIDER ORDERS Sodium Chloride 10 ml 06/05/22 01:00 06/07/22 08:13 Sodium Chloride Flush 0.9% 10 Ml Syringe IVP 10 ml 0100,0900,1700 MONTY Administration Tamsulosin HCl 0.4 mg 06/05/22 09:00 06/07/22 08:13 Tamsulosin 0.4 Mg Capsule PO 0.4 mg DAILY MONTY Administration Thiamine HCl 100 mg 06/05/22 09:00 06/07/22 08:13 Thiamine 100 Mg Tablet PO 100 mg DAILY MONTY Administration - Lab Result Fish Bone Diagrams: 06/05/22 05:04 06/05/22 05:04 - Additional Planning My Orders: My Active Orders 06/07/22 09:00 Ascorbic Acid [Vitamin C] 500 mg PO DAILY Citalopram [CeleXA] 20 mg PO DAILY Insulin Glargine-Yfgn [Semglee] 24 unit SUBQ DAILY Subjective - Subjective Patient Reports: Resting Comfortably, No Complaints Objective Vital Signs: Vital Signs - 24 hr 0106/06/22 06/07/22 16:00 20:46 00:52 Temperature 36.7 C 36.8 C 37.0 C Heart Rate [ 65 69 63 Brachial] Respiratory 18 18 16 Rate Blood Pressure 140/78 H 141/70 H 135/80 H [Right Brachial artery] O2 Saturation 98 96 97 06/07/22 07:38 Temperature 36.7 C Heart Rate [ 60 Brachial] Respiratory 16 Rate Blood Pressure 138/62 H [Right Brachial artery] O2 Saturation 96 Oxygen O2 Source [With Activity] Nasal cannula O2 Source Room air I&O (Last 24 Hrs): Intake and Output Totals x24h 06/05/22 06/06/22 06/07/22 23:59 23:59 23:59 Intake Total 2103.333 2472 1192 Output Total 925 1950 450 Balance 1178.333 522 742 General: Alert, No acute distress HEENT: EOMI, Mucous membr. moist/pink Neck: Supple, No JVD Neuro: Alert, Disoriented, Non Focal Cardiovascular: No murmurs Respiratory: No respiratory distress Abdomen: Soft Extremities: No clubbing, No edema - Results Results: Laboratory Results WBC 10.4 x10^3/uL (4.8-10.8) 06/05/22 05:04 RBC 3.78 10^6/uL (4.70-6.10) L 06/05/22 05:04 Hgb 11.1 g/dL (14.0-18.0) L 06/05/22 05:04 Hct 34.7 % (42.0-52.0) L 06/05/22 05:04 MCV 91.8 fL (80.0-94.0) 06/05/22 05:04 MCH 29.4 pg (27.0-31.0) 06/05/22 05:04 MCHC 32.0 g/dL (32.0-36.0) 06/05/22 05:04 RDW 13.0 % (12.0-15.0) 06/05/22 05:04 Plt Count 263 10^3/uL (130-450) 06/05/22 05:04 MPV 11.5 fL (7.4-11.4) H 06/05/22 05:04 Neut # (Auto) 8.8 10^3/uL (1.5-6.6) H 06/05/22 05:04 Lymph # (Auto) 0.9 10^3/uL (1.5-3.5) L 06/05/22 05:04 [place] # (Auto) 0.5 10^3/uL (0.0-1.0) 06/05/22 05:04 Eos # (Auto) 0.0 10^3/uL (0.0-0.7) 06/05/22 05:04 Baso # (Auto) 0.1 10^3/uL (0.0-0.1) 06/05/22 05:04 Absolute Nucleated RBC 0.00 x10^3/uL 06/05/22 05:04 Nucleated RBC % 0.0 /100WBC 06/05/22 05:04 Sodium 140 mmol/L (135-145) 06/05/22 05:04 Potassium 3.8 mmol/L (3.5-5.0) 06/05/22 05:04 Chloride 105 mmol/L (101-111) 06/05/22 05:04 Carbon Dioxide 25 mmol/L (21-32) 06/05/22 05:04 Anion Gap 10.0 (6-13) 06/05/22 05:04 BUN 29 mg/dL (6-20) H 06/05/22 05:04 Creatinine 1.4 mg/dL (0.6-1.2) H 06/05/22 05:04 Estimated GFR (MDRD) 50 (>89) L 06/05/22 05:04 Glucose 280 mg/dL (70-100) H 06/05/22 05:04 POC Whole Bld Glucose 236 mg/dL (70 - 100) H 06/07/22 11:15 Lactic Acid 1.2 mmol/L (0.5-2.2) 06/04/22 19:45 Calcium 8.6 mg/dL (8.5-10.3) 06/05/22 05:04 Phosphorus 2.5 mg/dL (2.5-4.6) 06/05/22 05:04 Total Bilirubin 0.8 mg/dL (0.2-1.0) 06/04/22 19:45 AST 18 IU/L (10-42) 06/04/22 19:45 ALT 18 IU/L (10-60) 06/04/22 19:45 Alkaline Phosphatase 66 IU/L (42-121) 06/04/22 19:45 Total Protein 8.1 g/dL (6.7-8.2) 06/04/22 19:45 Albumin 3.0 g/dL (3.2-5.5) L 06/05/22 05:04 Globulin 4.6 g/dL (2.1-4.2) H 06/04/22 19:45 Albumin/Globulin Ratio 0.8 (1.0-2.2) L 06/04/22 19:45 Lipase 25 U/L (22-51) 06/04/22 19:45 Urine Color YELLOW 06/04/22 20:27 Urine Clarity HAZY (CLEAR) 06/04/22 20:27 Urine pH 6.0 PH (5.0-7.5) 06/04/22 20:27 Ur Specific [place] 1.020 (1.002-1.030) 06/04/22 20:27 Urine Protein 30 mg/dL (NEGATIVE) H 06/04/22 20:27 Urine Glucose (UA) NEGATIVE mg/dL (NEGATIVE) 06/04/22 20: Urine Ketones NEGATIVE mg/dL (NEGATIVE) 06/04/22 20:27 Urine Occult Blood LARGE (NEGATIVE) H 06/04/22 20: Urine Nitrite POSITIVE (NEGATIVE) H 06/04/22 20:27 Urine Bilirubin NEGATIVE (NEGATIVE) 06/04/22 20:27 Urine Urobilinogen 1 (NORMAL) E.U./dL (NORMAL) 06/04/22 20:27 Ur Leukocyte Esterase MODERATE (NEGATIVE) H 06/04/22 20:27 Urine RBC 11-25 /HPF (0-5) H 06/04/22 20:27 Urine WBC 11-25 /HPF (0-3) H 06/04/22 20:27 Ur Squamous Epith Cells NONE SEEN (<= Few) 06/04/22 20: Urine Bacteria Many /HPF (None Seen) H 06/04/22 20:27 Ur Microscopic Review INDICATED 06/04/22 20:27 Urine Culture Comments INDICATED 06/04/22 20: Nasal Adenovirus (PCR) NOT DETECTED 06/04/22 19:20 Nasal B. parapertussis DNA (PCR) NOT DETECTED 06/04/22 19:20 Nasal Coronavir 229E PCR NOT DETECTED 06/04/22 19:20 Nasal Coronavir HKU1 PCR NOT DETECTED 06/04/22 19:20 Nasal Coronavir NL63 PCR NOT DETECTED 06/04/22 19:20 Nasal Coronavir OC43 PCR NOT DETECTED 06/04/22 19:20 Nasal Enterovir/Rhinovir PCR NOT DETECTED 06/04/22 19:20 Nasal Influenza B PCR NOT DETECTED 06/04/22 19:20 Nasal Influenza A PCR NOT DETECTED 06/04/22 19:20 Nasal Parainfluen 1 PCR NOT DETECTED 06/04/22 19:20 Nasal Parainfluen 2 PCR NOT DETECTED 06/04/22 19:20 Nasal Parainfluen 3 PCR NOT DETECTED 06/04/22 19:20 Nasal Parainfluen 4 PCR NOT DETECTED 06/04/22 19:20 Nasal RSV (PCR) NOT DETECTED 06/04/22 19:20 Nasal B.pertussis DNA PCR NOT DETECTED 06/04/22 19:20 Nasal C.pneumoniae (PCR) NOT DETECTED 06/04/22 19:20 Raz Human Metapneumo PCR NOT DETECTED 06/04/22 19:20 Nasal M.pneumoniae (PCR) NOT DETECTED 06/04/22 19:20 Nasal SARS-CoV-2 (PCR) NOT DETECTED 06/04/22 19:20 Sepsis Event Note (H) - Evaluation Current Stage of Sepsis: Resolved Possible source of Sepsis: positive: Genitourinary - Sepsis Criteria Sepsis Criteria: Recorded Temperature greater than 38.3C or Less than 36C, Recorded Heart Rate greater than 90 bpm, WBC count greater than 12,000 or less than 4000
[2022-06-07] MEDS: ATORVASTATIN 40 MG TABLET PO SCH (20:43)
[2022-06-08] MEDS: SODIUM CHLORIDE FLUSH 0.9% 10 ML SYRINGE IVP SCH ×2 (00:42→08:57)
[2022-06-08] MEDS: PANTOPRAZOLE 40 MG TABLET PO SCH (06:13)
[2022-06-08] MEDS: CIPROFLOXACIN 250 MG TABLET PO SCH (08:23)
[2022-06-08] MEDS: amLODIPine 5 MG TABLET PO SCH (08:24)
[2022-06-08] MEDS: CITALOPRAM 10 MG TABLET PO SCH (08:24)
[2022-06-08] MEDS: ASCORBIC ACID 500 MG TABLET PO SCH (08:24)
[2022-06-08] MEDS: THIAMINE 100 MG TABLET PO SCH (08:24)
[2022-06-08] MEDS: CLOPIDOGREL 75 MG TABLET PO SCH (08:24)
[2022-06-08] MEDS: INSULIN GLARGINE-YFGN 300 UNIT/3 ML PEN SUBQ SCH (08:40)
[2022-06-08] MEDS: INSULIN LISPRO 300 UNIT/3 ML PEN SUBQ SCH ×4 (08:43→12:42)
[2022-06-08] MEDS: TAMSULOSIN 0.4 MG CAPSULE PO SCH (08:49)
[2022-06-08] MEDS: ASPIRIN 325 MG TABLET PO SCH (08:57)
[2022-06-08] MEDS ORDERED: polyethylene glycoL 3350 17 GM PACKET PO SCH (09:00)
--- NOTE | 2022-06-08 10:10 | Discharge Plan ---
"Discharge Plan for SNF / [facility] - Discharge Plan And Transition Orders Problem Reviewed?: Yes Disposition: 01 Home, Self Care Condition: Stable Allergies and Adverse Reactions: Allergies Allergy/AdvReac Type Severity Reaction Status Date / Time No Known Drug Allergies Allergy Verified 05/04/22 14:32 Health Concerns: This is a 67 yo male with hx of dementia, chronic lara, CKD III, HTN, DM II, CVA and BPH who was brought to the ED from his facility for fever today. In the ED, he was found to have UTI with sepsis, pt was started on IV Rocephin, CT abd/pelvis did not show acute process, covid 19 negative, pt was not a good historian due to his dementia, therefore hospitalist contacted to admit the pt for further management. - Past Medical History Cardiovascular: reports: Hypertension, High cholesterol Neuro: reports: Dementia, CVA Endocrine/Autoimmune: reports: Type 2 diabetes : reports: Benign prostate hypertrophy, Retention, Chronic bladder infection, Renal insuffiency, Indwelling catheter Psych: reports: Depression, Anxiety - Past Surgical History Other past surgical history: unable to obtain due to dementia Plan of Treatment: Two admissions ago his urine culture grew Providencia. One admission ago, which was just 1 month ago, he had a Proteus UTI that caused a Proteus bacteremia. this admission his urine is growing Pseudomonas. He has vascular dementia. At baseline he is not very ambulatory. As such he is not seeing physical therapy here. He was altered on admit and has drifted back to [facility]. He knows he's in a hospital and that is it May. Eating 75% to 100% of food Plan: Rocephin stopped after 4 doses and changed to Cipro po for 6 more days. His last doses will be 06/12/22. The Lara was apparently not changed when he presented to the ER or on the night of admission. lara has been changed. Care Goals: To resume his usual status as a fpc patient. DO NOT RESUSCITATE status. Assessment: Patient is alert, oriented to place but with cognitive deficits of not understanding why he is here, or the date. - SNF / CUSTODIAL Transition Orders Admit to (Facility): [facility] Under the care of (Name): Monik Sims MD Discharge Diagnosis: 1. Sepsis with Pseudomonas UTI 2. Chronic indwelling Lara catheter 3. Type 2 diabetes mellitus, controlled, without complications, on long-term insulin 4. Chronic kidney disease stage III 5. Multi-infarct dementia 6. Coronary artery disease, [place] vessels, status post [place] February 2021 7. History of methamphetamine abuse Medicare Certification Statement: I certify that [facility] care is medically necessary on a continuing basis for any of the conditions for which she/he is receiving care during hospitalization. Notify PCP of admission and forward orders to primary provider for signature. Weight on admission and: Monthly Other Notification Orders: Call PCP immediately if patient develops dyspnea, chest pain/tightness or edema. House Bowel Program: Yes Additional Bowel Program Orders: If no BM after 2 days, nurse may give M.O.M. 30ml PO PRN and/or ducolax Supp 1 NV and/or ARAMIS 250mg P.O., and/or senna 1-2 tabs PO. On day 3 nurse may give repeat above order until residents constipation is resolved. Annual Influenza Vaccine (between Jan 20 and August 19): Yes Two-step PPD per [facility] [id number] or approved exception documents: Yes Medication Orders: PLEASE REFER TO THE DISCHARGE MEDICATION LIST. - Medications New Prescriptions: Ciprofloxacin [Cipro] 500 mg PO BID #20 tab - Diet Type: No added sugar Texture: Regular Liquids: Thin May have monthly special meal: Yes - Therapies | Activity Rehabilitation Potential: Maximize functional status Activity: Activity as Tolerated Assistance Devices: Wheelchair"
[2022-06-08 14:17] VITALS: BP 126/67
--- NOTE | 2022-06-08 17:38 | DISCHARGE SUMMARY ---
"Discharge Summary Admit Date: 06/04/22 Discharge Date: 06/08/22 Discharging Provider: Mally Montelongo MD Primary Care Provider: Monik Sims MD Code Status: Attempt Resuscitation Condition at Discharge: Stable Discharge Disposition: 01 Home, Self Care - DIAGNOSES Discharge Diagnoses with Status of Each Condition: 1. Sepsis with Pseudomonas UTI 2. Chronic indwelling Lara catheter 3. Type 2 diabetes mellitus, controlled, without complications, on long-term insulin 4. Chronic kidney disease stage III 5. Multi-infarct dementia 6. Coronary artery disease, [place] vessels, status post [place] February 2021 7. History of methamphetamine abuse - HPI History of Present Illness: HPI Comment/Other: This is a 67 yo male with hx of dementia, chronic lara, CKD III, HTN, DM II, CVA and BPH who was brought to the ED from his facility for fever today. In the ED, he was found to have UTI with sepsis, pt was started on IV Rocephin, CT abd/pelvis did not show acute process, covid 19 negative, pt was not a good historian due to his dementia, therefore hospitalist contacted to admit the pt for further management. - Past Medical History Cardiovascular: reports: Hypertension, High cholesterol Neuro: reports: Dementia, CVA Endocrine/Autoimmune: reports: Type 2 diabetes : reports: Benign prostate hypertrophy, Retention, Chronic bladder infection, Renal insuffiency, Indwelling catheter Psych: reports: Depression, Anxiety - Past Surgical History Other past surgical history: unable to obtain due to dementia - CONSULTS | PROCEDURES Procedures: Abdomen and pelvis CT with no urinary tract obstruction found. Asymmetry of the kidneys. No pyelonephritis seen. Bladder has 3 small to moderate sized bladder calculi and close opposition to the Lara catheter balloon. Blood cultures negative Urine culture with Pseudomonas aeruginosa - HOSPITAL COURSE Hospital Course: Two admissions ago his urine culture grew Providencia. One admission ago, which was just 1 month ago, he had a Proteus UTI that caused a Proteus bacteremia. t his admission his urine is growing Pseudomonas. He has vascular dementia. At baseline he is not very ambulatory. As such he is not seeing physical therapy here. He was altered on admit and has drifted back to [facility]. He knows he's in a hospital and that is it May. Eating 75% to 100% of food Rocephin stopped after 4 doses and changed to Cipro po for 6 more days. His last doses will be 06/12/22. The Lara was apparently not changed when he presented to the ER or on the night of admission. lara has been changed. At baseline this patient is sedentary. He has vascular dementia. He is not seeing physical therapy here due to his chronic baseline status currently present. He has a chronic indwelling Lara catheter. His diabetes was monitored and treated with Lantus and short acting insulin. Chronic kidney disease remained stable. There were no behavioral issues. Sepsis resolved with IV fluids and antibiotics. Care Goals: To resume his usual status as a custodial patient. DO NOT RESUSCITATE status. Assessment: Patient is alert, oriented to place but with cognitive deficits of not understanding why he is here, or the date. At discharge temperature 36.6. Heart rate 56. Blood pressure 126/67. Respirations 18. 97% on room air. He is a very pleasantly cooperative, but very vague gentleman. No insight for how all of this is happening to him. He is 6 foot 1 inch tall, 95 kg. Lungs are clear. Regular rate and rhythm. Abdomen with no tenderness. Normal bowel sounds. Extremities without edema. Greater than 30 minutes spent coordinating discharge with custodial orders written - ALLERGIES Allergies/Adverse Reactions: Allergies Allergy/AdvReac Type Severity Reaction Status Date / Time No Known Drug Allergies Allergy Verified 05/04/22 14:32 - MEDICATIONS Home Medications: Ambulatory Orders Medication Instructions Recorded Confirmed Doxazosin [Cardura] 1 mg PO QPM #30 tablet 08/27/18 06/05/22 Tamsulosin [Flomax] 0.4 mg PO DAILY #30 capsule 08/27/18 06/05/22 Insulin Glargine,Hum.rec.anlog 24 unit SUBQ DAILY 03/06/19 06/05/22 [Basaglar Kwikpen U-100] Acetaminophen 650 mg PO Q4HR PRN 03/07/19 06/05/22 Aspirin 325 mg PO DAILY 03/07/19 06/05/22 Atorvastatin Calcium 80 mg PO QPM 03/07/19 06/05/22 Clopidogrel [Plavix] 75 mg PO DAILY 03/07/19 06/05/22 Thiamine [Vitamin B-1] 100 mg PO DAILY 03/07/19 06/05/22 ondansetron HCL [Zofran] 8 mg PO Q8H PRN 03/07/19 06/05/22 Lisinopril [Zestril] 20 mg DAILY 09/03/19 06/05/22 Citalopram [CeleXA] 20 mg PO DAILY 12/16/19 06/05/22 Calcium Carbonate [Tums (Calcium 500 - 1,000 mg PO Q2H PRN 10/30/20 06/05/22 Carbonate 500mg)] Insulin Aspart [NovoLOG] 2 - 12 unit SUBQ TIDWM 10/30/20 06/05/22 Insulin Aspart [NovoLOG] 7 unit SUBQ TIDWM 10/30/20 06/05/22 Omeprazole [PriLOSEC] 20 mg PO DAILY 10/30/20 06/05/22 Amlodipine Besylate [Norvasc] 10 mg PO DAILY 09/21/21 06/05/22 Ascorbic Acid 1 tab PO DAILY 06/05/22 06/05/22 Bisacodyl Supp [Dulcolax Supp] 1 supp NE DAILY PRN 06/05/22 06/05/22 Docusate Sodium 250Mg Capsule 1 cap PO DAILY PRN 06/05/22 06/05/22 [Colace 250Mg Capsule] Magnesium Hydroxide [Milk of 30 ml PO PRN PRN 06/05/22 06/05/22 Magnesia] Senna [Senokot] 1 - 2 tab PO BID PRN 06/05/22 06/05/22 polyethylene glycoL 3350 17 g PO BID 06/05/22 06/05/22 [Polyethylene Glycol 3350] Ciprofloxacin [Cipro] 500 mg PO BID #20 tab 06/08/22 - LABS Result Diagrams: 06/05/22 05:04 06/05/22 05:04 - SEPSIS Current Stage of Sepsis: Resolved Possible source of Sepsis: Genitourinary Sepsis Criteria: Recorded Temperature greater than 38.3C or Less than 36C, Recorded Heart Rate greater than 90 bpm, WBC count greater than 12,000 or less than 4000"
== END 2022-06-08 13:40 | disposition home or self-care (01) | DRG 872 ==
LOC: EDUNIT# → ED 19:13 → MS2 23:45
PROVIDERS: ADMIT Hospitalist; ATTEND Specialist
DX: A41.9 Sepsis, unspecified organism (principal); N30.01 Acute cystitis with hematuria; A41.52 Sepsis due to Pseudomonas; N39.0 Urinary tract infection, site not specified; F03.90 Unspecified dementia, unspecified severity, without behavioral disturbance, psychotic disturbance, mood disturbance, and anxiety; E78.00 Pure hypercholesterolemia, unspecified; E11.22 Type 2 diabetes mellitus with diabetic chronic kidney disease; G80.9 Cerebral palsy, unspecified; I12.9 Hypertensive chronic kidney disease with stage 1 through stage 4 chronic kidney disease, or unspecified chronic kidney disease; I25.10 Atherosclerotic heart disease of native coronary artery without angina pectoris; H54.7 Unspecified visual loss; I25.2 Old myocardial infarction; N18.30 Chronic kidney disease, stage 3 unspecified; G89.29 Other chronic pain; M54.9 Dorsalgia, unspecified; Z20.822 Contact with and (suspected) exposure to COVID-19; N40.1 Benign prostatic hyperplasia with lower urinary tract symptoms; F01.50 Vascular dementia, unspecified severity, without behavioral disturbance, psychotic disturbance, mood disturbance, and anxiety; F32.A Depression, unspecified; F41.9 Anxiety disorder, unspecified; R33.8 Other retention of urine; Z87.891 Personal history of nicotine dependence; Z66 Do not resuscitate; Z79.02 Long term (current) use of antithrombotics/antiplatelets; Z79.4 Long term (current) use of insulin; Z79.82 Long term (current) use of aspirin; Z79.899 Other long term (current) drug therapy; Z86.73 Personal history of transient ischemic attack (TIA), and cerebral infarction without residual deficits; Z87.898 Personal history of other specified conditions; Z96.0 Presence of urogenital implants
CPT/HCPCS: 36415; 71045; 74177; 80053; 80069; 81001; 83605; 83690; 85025; 87040; 87077; 87086; 87181; 87633; 93005; 96374; 99285; A9270; J1815; Q9967; 81003

== ENCOUNTER 2023-02-01 13:26 | Outpatient (CLI) | payer MEDICARE, MEDICAID | END 2023-02-01 13:27 | disposition critical access hospital (66) | LOC: EMS 13:26 | DX: R10.30 Lower abdominal pain, unspecified (principal); R39.89 Other symptoms and signs involving the genitourinary system; R53.1 Weakness; T83.031A Leakage of indwelling urethral catheter, initial encounter | CPT/HCPCS: A0425; A0429 ==

== ENCOUNTER 2023-02-01 13:45 | Emergency (ER) | payer MEDICARE, MEDICAID ==
[2023-02-01] MEDS ORDERED: SODIUM CHLORIDE 0.9% 1,000 ML IV STA (13:59)
--- NOTE | 2023-02-01 14:03 | ED Physician Documentation ---
History of Present Illness - Stated complaint Stated Complaint: CATH ISSUE - Chief complaint Chief Complaint: Abd Pain - Additonal information Additional information: 68-year-old male who has a past medical history including dementia, chronic Bryant, CKD stage III, hypertension, diabetes type 2, CVA as well as BPH presents to the emergency department from [facility] for evaluation of increasing generalized weakness as well as increasing sediment and drainage around his Bryant catheter. Patient is a DO NOT RESUSCITATE. Reportedly the patient was started on a 10-day course of Bactrim 01/27/2023 for treatment of a urinary tract infection. In evaluation of the records from [facility] patient has become increasingly weak. On presentation to the emergency department the patient is alert and calm. He is afebrile. Heart rate is 80 sinus rhythm. Initial blood pressure 90/58 on repeat 103/76. Room air saturations 95%. The patient is cooperative but demented. Confused to time place and situation. Review of Systems Unable to obtain: Dementia PD PAST MEDICAL HISTORY - Past Medical History Cardiovascular: Hypertension, High cholesterol Respiratory: Pneumonia Neuro: Dementia, CVA Endocrine/Autoimmune: Type 2 diabetes GI: None : Benign prostate hypertrophy, Retention, Chronic bladder infection, Renal insuffiency, Indwelling catheter HEENT: Chronic vision loss Psych: Depression, Anxiety Musculoskeletal: Fatigue, Chronic back pain Derm: None - Past Surgical History Past Surgical History: Yes - Present Medications Home Medications: Ambulatory Orders Medication Instructions Recorded Confirmed Doxazosin [Cardura] 1 mg PO QPM #30 tablet 08/27/18 02/01/23 Tamsulosin [Flomax] 0.4 mg PO DAILY #30 capsule 08/27/18 02/01/23 Insulin Glargine,Hum.rec.anlog 24 unit SUBQ DAILY 03/06/19 02/01/23 [Basaglar Kwikpen U-100] Acetaminophen 650 mg PO Q4HR PRN 03/07/19 02/01/23 Aspirin 325 mg PO DAILY 03/07/19 02/01/23 Atorvastatin Calcium 80 mg PO QPM 03/07/19 02/01/23 Clopidogrel [Plavix] 75 mg PO DAILY 03/07/19 02/01/23 Thiamine [Vitamin B-1] 100 mg PO DAILY 03/07/19 06/05/22 ondansetron HCL [Zofran] 8 mg PO Q8H PRN 03/07/19 02/01/23 Lisinopril [Zestril] 20 mg DAILY 09/03/19 02/01/23 Citalopram [CeleXA] 20 mg PO DAILY 12/16/19 06/05/22 Calcium Carbonate [Tums (Calcium 500 - 1,000 mg PO Q2H PRN 10/30/20 02/01/23 Carbonate 500mg)] Insulin Aspart [NovoLOG] 2 - 12 unit SUBQ TIDWM 10/30/20 02/01/23 Insulin Aspart [NovoLOG] 7 unit SUBQ TIDWM 10/30/20 02/01/23 Omeprazole [PriLOSEC] 20 mg PO DAILY 10/30/20 02/01/23 Amlodipine Besylate [Norvasc] 10 mg PO DAILY 09/21/21 02/01/23 Ascorbic Acid 1 tab PO DAILY 06/05/22 06/05/22 Bisacodyl Supp [Dulcolax Supp] 1 supp CO DAILY PRN 06/05/22 02/01/23 Docusate Sodium 250Mg Capsule 1 cap PO DAILY PRN 06/05/22 02/01/23 [Colace 250Mg Capsule] Magnesium Hydroxide [Milk of 30 ml PO PRN PRN 06/05/22 02/01/23 Magnesia] Senna [Senokot] 1 - 2 tab PO BID PRN 06/05/22 06/05/22 polyethylene glycoL 3350 17 g PO BID 06/05/22 02/01/23 [Polyethylene Glycol 3350] Ciprofloxacin [Cipro] 500 mg PO BID #20 tab 06/08/22 Cefpodoxime Proxetil [Vantin] 100 mg PO Q12H #14 tablet 02/01/23 - Allergies Allergies/Adverse Reactions: Allergies Allergy/AdvReac Type Severity Reaction Status Date / Time No Known Drug Allergies Allergy Verified 05/04/22 14:32 - Social History Does the pt smoke?: No Smoking Status: Never smoker Does the pt drink ETOH?: No Does the pt have substance abuse?: Yes - Immunizations Immunizations are current?: Yes - POLST Patient has POLST: Yes POLST Status: Full Code PD ED PE EXPANDED - General General: Alert, No acute distress - Cardiac Cardiac: Regular Rate, Radial strong equal, Pedal strong equal, Cap refill < 2 sec. No: Murmur Present - Respiratory Respiratory: Clear to ausultation lashawn. No: Distress, Labored - Abdomen Abdomen: Normal Bowel sounds. No: Tender to palpation - Male Male : Other (Bryant exiting the penis. A large amount of sediment in the tubing. Large amount of yellow sediment discharge around the meatus and on the diaper) - Derm Derm: Normal color, Warm and dry - Neuro Neuro: Confused - GCS Eye Opening: Spontaneous Motor: Obeys Commands Verbal: Confused Total: 14 Results - Vitals Vitals: Vital Signs - 24 hr 02/01/23 02/01/23 02/01/23 13:49 13:59 14:20 Temperature 37.6 C Heart Rate 78 80 81 Respiratory 16 16 16 Rate Blood Pressure 90/58 L 103/76 113/71 O2 Saturation 97 95 98 02/01/23 16:03 Temperature Heart Rate 76 Respiratory 16 Rate Blood Pressure 117/67 O2 Saturation 97 Oxygen O2 Source [With Activity] Nasal cannula O2 Source Room air - Labs Labs: Laboratory Tests 02/01/23 02/01/23 02/01/23 14:15 14:15 15:08 WBC 9.0 RBC 3.36 L Hgb 9.9 L Hct 31.4 L MCV 93.5 MCH 29.5 MCHC 31.5 L RDW 13.4 Plt Count 282 MPV 11.6 H Neut # (Auto) 7.0 H Lymph # (Auto) 1.2 L Titus # (Auto) 0.7 Eos # (Auto) 0.0 Baso # (Auto) 0.0 Absolute Nucleated RBC 0.00 Nucleated RBC % 0.0 Sodium 138 Potassium 4.4 Chloride 109 Carbon Dioxide 22 Anion Gap 7.0 BUN 75 H Creatinine 2.8 H Estimated GFR (MDRD) 23 L Glucose 258 H Calcium 9.4 Total Bilirubin 0.4 AST 31 ALT 37 Alkaline Phosphatase 81 Total Protein 7.0 Albumin 3.3 Globulin 3.7 Albumin/Globulin Ratio 0.9 L Lipase 12 Urine Color YELLOW Urine Clarity CLOUDY Urine pH 5.5 Ur Specific [place] 1.020 Urine Protein 100 H Urine Glucose (UA) NEGATIVE Urine Ketones NEGATIVE Urine Occult Blood LARGE H Urine Nitrite NEGATIVE Urine Bilirubin NEGATIVE Urine Urobilinogen 0.2 (NORMAL) Ur Leukocyte Esterase MODERATE H Urine RBC 6-10 H Urine WBC >25 H Ur Squamous Epith Cells NONE SEEN Urine Bacteria Few Ur Microscopic Review INDICATED Urine Culture Comments INDICATED PD Medical Decision Making - ED course Complexity details: reviewed results, re-evaluated patient, d/w patient, d/w family ED course: 68-year-old male presents to the emergency department for evaluation of his Bryant catheter which has failed to drain. Recently was started on antibiotics for suspected UTI. On presentation to the emergency department he is alert but does have some soft blood pressures. A POLST form indicates that he is a DO NOT RESUSCITATE comfort care measures only patient. Patient has previously been seen in this emergency department with urinary tract infection and sepsis. I did obtain CBC and electrolytes. Per my interpretation he has developed some new acute kidney injury on top of his chronic kidney disease. Today's BUN is 75 and a creatinine is 2.1. Historically his creatinine has been 2.1 with a BUN in the 40s. CBC shows a worsening anemia with a hemoglobin of 9.9 but no leukocytosis. Urinalysis today is consistent with infection though again this gentleman has a chronic Bryant catheter in place. We did replace the Bryant catheter which appeared to be obstructed and when the new catheter was placed immediately 2 L of fluid drained. I suspect that he has worsening kidney injury in the setting of bladder outlet obstruction. I did call the patient's Sister Lesly, his medical POA. We discussed at length the patient's presentation today, his current labs, vital signs as well as worsening clinical status. She indicated to me that her brother has been miserable and uncomfortable for quite some time and feels that he is likely ready to . She would not want the patient admitted to the hospital for treatment of his kidney injury and would like the patient discharged back to [facility]. I will order a palliative care consult. Though the patient has been on Bactrim I am going to order cefpodoxime for treatment of his urinalysis. Otherwise he will be followed closely by his PCP with pending referral to palliative/hospice care Departure - Departure Disposition: 01 Home, Self Care Clinical Impression: ANDREINA (acute kidney injury), Chronic kidney disease (CKD) Dementia Qualifiers: Dementia type: vascular dementia Dementia severity: severe Dementia behavioral or psychological symptom: unspecified whether behavioral, psychotic, or mood disturbance or anxiety Qualified Code(s): F01.C0 - Vascular dementia, severe, without behavioral disturbance, psychotic disturbance, mood disturbance, and anxiety Prescriptions: Cefpodoxime Proxetil [Vantin] 100 mg PO Q12H #14 tablet Comments: Jose Eduardo was seen today in the emergency department for concerns of worsening weakness and failure of his Bryant catheter to work adequately. We did exchange the Bryant catheter today. It was not draining adequately. When we exchanged the catheter nearly 2 L of urine drained almost immediately. Today Jose Eduardo's labs do show that he has worsening kidney injury. This is most likely because his bladder was not draining but it could also be a longer-term consequence of his chronic diseases such as hypertension and diabetes. We did have a long conversation with his medical power of patent prosecution attorney Lesly. At this time she does not feel that Jose Eduardo should be admitted to the hospital and she would like him to receive comfort care measures. I am ordering a palliative care consult which should be completed sometime in the next week. A new prescription for Vantin, and antibiotic is being sent home with Jose Eduardo. If at any point you find that his Bryant catheter is not draining adequately he can return to the emergency department. However it does appear that his medical power of patent prosecution attorney would like to follow the POLST form which indicates that Jose Eduardo is a DO NOT RESUSCITATE/comfort care measures patient. Forms: PCP List
[2023-02-01 14:49] LABS: BASOPHILS % (AUTO) 0.4 %; EOSINOPHILS % (AUTO) 0.1 %; HCT - HEMATOCRIT 31.4 % (42.0-52.0); HGB - HEMOGLOBIN 9.9 g/dL (14.0-18.0); LYMPHOCYTES # (AUTO) 1.2 10^3/uL (1.5-3.5); LYMPHOCYTES % (AUTO) 13.7 %; MEAN CORPUSCULAR HEMOGLOBIN 29.5 pg (27.0-31.0); MEAN CORPUSCULAR HGB CONC 31.5 g/dL (32.0-36.0); MEAN CORPUSCULAR VOLUME 93.5 fL (80.0-94.0); MEAN PLATELET VOLUME 11.6 fL (7.4-11.4); MONOCYTES # (AUTO) 0.7 10^3/uL (0.0-1.0); MONOCYTES % (AUTO) 7.7 %; NEUTROPHILS % (AUTO) 77.7 %; PLT - PLATELET COUNT 282 10^3/uL (130-450); RED BLOOD COUNT 3.36 10^6/uL (4.70-6.10); RED CELL DISTRIBUTION WIDTH 13.4 % (12.0-15.0)
[2023-02-01 15:21] LABS: ALBUMIN 3.3 g/dL (3.2-5.5); ALBUMIN/GLOBULIN RATIO 0.9 (1.0-2.2); BILIRUBIN,TOTAL 0.4 mg/dL (0.2-1.0); CALCIUM 9.4 mg/dL (8.5-10.3); CREATININE 2.8 mg/dL (0.6-1.3); POTASSIUM 4.4 mmol/L (3.5-4.5)
[2023-02-01 15:35] LABS: BILIRUBIN,URINE NEGATIVE (NEGATIVE); GLUCOSE, URINE (UA) NEGATIVE (NEGATIVE); KETONES,URINE (UA) NEGATIVE (NEGATIVE); LEUKOCYTE ESTERASE, URINE MODERATE (NEGATIVE); NITRITE,URINE NEGATIVE (NEGATIVE); OCCULT BLOOD,URINE LARGE (NEGATIVE); PH,URINE 5.5 PH (5.0-7.5); PROTEIN,URINE 100 mg/dL (NEGATIVE); UROBILINOGEN,URINE 0.2 (NORMAL) E.U./dL (NORMAL)
[2023-02-01 15:40] LABS: CLARITY,URINE CLOUDY (CLEAR)
[2023-02-01 15:54] LABS: BACTERIA,URINE Few /HPF (None Seen); SQUAMOUS EPITHELIAL CELL,UR NONE SEEN (<= Few); WBC,URINE >25 /HPF (0-3)
[2023-02-01 17:18] VITALS: BP 118/70; O2SAT 99
== END 2023-02-01 16:50 | disposition home or self-care (01) ==
LOC: EDUNIT# → ED 13:45
DX: F03.90 Unspecified dementia, unspecified severity, without behavioral disturbance, psychotic disturbance, mood disturbance, and anxiety (principal); E11.22 Type 2 diabetes mellitus with diabetic chronic kidney disease; I12.9 Hypertensive chronic kidney disease with stage 1 through stage 4 chronic kidney disease, or unspecified chronic kidney disease; N18.30 Chronic kidney disease, stage 3 unspecified; Z79.4 Long term (current) use of insulin
CPT/HCPCS: 36415; 51702; 80053; 81001; 81003; 83690; 85025; 87040; 87086; 99284

== ENCOUNTER 2023-02-01 17:05 | Outpatient (CLI) | payer MEDICARE, MEDICAID | END 2023-02-01 17:06 | disposition home or self-care (01) | LOC: EMS 17:05 | PROVIDERS: ATTEND Registered Nurse | DX: Z51.5 Encounter for palliative care (principal); F03.90 Unspecified dementia, unspecified severity, without behavioral disturbance, psychotic disturbance, mood disturbance, and anxiety; N17.9 Acute kidney failure, unspecified; N39.0 Urinary tract infection, site not specified; R53.1 Weakness; Z74.01 Bed confinement status | CPT/HCPCS: A0425; A0428 ==